=== PATIENT | male | born 1940 | race Caucasian/White ===

== ENCOUNTER → 2018-01-15 | Outpatient (CLI) | payer MEDICARE, SELFPAY ==
[2018-01-15 11:39] LABS: Hematocrit 46.2 % (41-53); Hemoglobin 15.6 g/dL (13.5-17.5); Mean Corpuscular HGB Conc 33.8 % (30-36); Mean Corpuscular Hemoglobin 33.5 PG (26-34); Platelet Count 186 X10^3/uL (150-400); Red Blood Cell Count 4.67 X10^6/uL (4.5-5.9); White Blood Cell Count 5.3 X10^3/uL (4.5-11.0)
[2018-01-15 11:49] LABS: Alanine Aminotransferase 64 IU/L (21-72); Albumin 4.6 g/dL (3.5-5.0); Albumin Globulin Ratio 1.5 (1.0-2.8); Alkaline Phosphatase 41 U/L (38-126); Aspartate Aminotransferase 53 IU/L (17-59); BUN Creatinine Ratio 16.4 (6-22); Bilirubin Total 0.7 mg/dL (0.2-1.3); Calcium 9.9 mg/dL (8.4-10.2); Cholesterol 187 mg/dL (140-199); Estimated Glomerular Filt Rate > 60.0 mL/min (>60); Globulin 3.1 g/dL (1.7-4.1); Glucose 89 mg/dL (80-110); HDL Cholesterol 40 mg/dL (40-60); HEMOLYSIS 18 (0-50); LDL Cholesterol Calculated 130 mg/dL (<100); Potassium 4.2 mmol/L (3.4-5.1); Sodium 143 mmol/L (137-145); Total Protein 7.7 g/dL (6.3-8.2); Triglycerides 84 mg/dL (35-150)
[2018-01-15 12:18] LABS: Prostate Specific Antigen < 0.064 ng/mL (0.10-4.00)
== END ==
LOC: LAB 09:42
PROVIDERS: PCP Family Medicine; Visit Provider Family Medicine
DX: I10 Essential (primary) hypertension (principal); E78.5 Hyperlipidemia, unspecified; C61 Malignant neoplasm of prostate; R94.5 Abnormal results of liver function studies
CPT/HCPCS: 36415; 80053; 80061; 84153; 85027

== ENCOUNTER → 2020-05-19 10:20 | Outpatient (CLI) | payer MEDICARE, SELFPAY ==
[2020-05-19 11:57] LABS: BUN Creatinine Ratio 18.1 (6-22); Blood Urea Nitrogen 17 mg/dL (9-20); Calcium 9.5 mg/dL (8.4-10.2); Carbon Dioxide 31 mmol/L (22-32); Chloride 99 mmol/L (98-107); Estimated Glomerular Filt Rate > 60.0 mL/min (>60); Glucose 82 mg/dL (80-110); HEMOLYSIS < 15 (0-50); Potassium 4.4 mmol/L (3.4-5.1); Sodium 138 mmol/L (137-145)
[2020-05-19 12:29] LABS: Prostate Specific Antigen < 0.064 ng/mL (0.10-4.00)
== END ==
PROVIDERS: PCP Student in an Organized Health Care Education/Training Program; Referring Provider Student in an Organized Health Care Education/Training Program; Visit Provider Student in an Organized Health Care Education/Training Program
DX: I10 Essential (primary) hypertension (principal); Z90.79 Acquired absence of other genital organ(s)
CPT/HCPCS: 36415; 80048; 84153

== ENCOUNTER → 2020-11-24 15:20 | Outpatient (CLI) | payer MEDICARE, SELFPAY ==
[2020-11-24] MEDS: COVID-19 VACC, Ad26(JANSSEN)/PF 0.5 ML IM (15:29)
== END ==
PROVIDERS: PCP Student in an Organized Health Care Education/Training Program; Visit Provider Internal Medicine
DX: Z23 Encounter for immunization (principal)
CPT/HCPCS: 0031A; 91303

== ENCOUNTER → 2021-06-22 08:18 | Outpatient (CLI) | payer MEDICARE, SELFPAY ==
--- NOTE | 2021-06-22 08:20 | DI.RAD.S_ITS ---
PROCEDURE: XR LUMBAR SPINE 2-3V INDICATIONS: Low back pain TECHNIQUE: 3 views of the lumbar spine were acquired. COMPARISON: [facility], , L-SPINE 2-3 VIEWS, 05/13/2012, 12:48. FINDINGS: Bones: 5 [id number] vertebrae are present. Partial sacralization of L5. Straightening of the lumbar lordosis. No acute, displaced fracture. The vertebral body heights are maintained. Mild disc height loss at L2-4. Is moderate disc height loss at L4-5.. Moderate to advanced facet arthrosis at L4-S1. No suspicious bony lesions. Soft tissues: Overlying bowel gas pattern is normal. No suspicious soft tissue calcifications. IMPRESSION: No acute acute osseous abnormality. Dictated by: Maximino Zhong M.D. on 06/22/2021 at 9:26 Approved by: Maximino Zhong M.D. on 06/22/2021 at 9:31
[2021-06-22 09:37] LABS: BUN Creatinine Ratio 18.3 (6-22); Blood Urea Nitrogen 19 mg/dL (9-20); Calcium 9.5 mg/dL (8.4-10.2); Carbon Dioxide 31 mmol/L (22-32); Chloride 94 mmol/L (98-107); Estimated Glomerular Filt Rate > 60.0 mL/min (>60); Glucose 96 mg/dL (80-110); HEMOLYSIS < 15 (0-50); Potassium 3.8 mmol/L (3.4-5.1); Sodium 133 mmol/L (137-145)
[2021-06-22 10:11] LABS: Prostate Specific Antigen < 0.064 ng/mL (0.10-4.00)
== END ==
PROVIDERS: PCP Student in an Organized Health Care Education/Training Program; Referring Provider Student in an Organized Health Care Education/Training Program; Visit Provider Student in an Organized Health Care Education/Training Program
DX: Z85.46 Personal history of malignant neoplasm of prostate (principal); M54.50 Low back pain, unspecified; I10 Essential (primary) hypertension
CPT/HCPCS: 36415; 72100; 80048; 84153

== ENCOUNTER → 2021-08-03 15:14 | Outpatient (CLI) | payer MEDICARE, SELFPAY ==
[2021-08-03] MEDS: COVID-19 VACC #3, MRNA(MOD) 50 MCG/0.25 ML VIAL IM (15:23)
== END ==
PROVIDERS: PCP Student in an Organized Health Care Education/Training Program; Visit Provider Internal Medicine
DX: Z23 Encounter for immunization (principal)
CPT/HCPCS: 0013A; 91301

== ENCOUNTER → 2022-01-24 13:07 | Outpatient (CLI) | payer MEDICARE, SELFPAY ==
--- NOTE | 2022-01-24 13:15 | DI.RAD.S_ITS ---
PROCEDURE: XR ANKLE RT MIN 3V INDICATIONS: fall TECHNIQUE: 3 views of the ankle were acquired. COMPARISON: None. FINDINGS: Bones: Acute oblique fracture through distal fibular shaft is seen with minimal lateral and dorsal displacement at fracture site. No other fracture or dislocation. Ankle mortise is normally aligned. No suspicious bony lesions. Soft tissues: Lateral ankle soft tissue swelling is seen. No tibiotalar joint effusion. Achilles tendon appears normal. IMPRESSION: Acute minimally displaced distal fibular shaft fracture with overlying soft tissue swelling. Ankle mortise is intact. Dictated by: Arthur Manriquez M.D. on 01/24/2022 at 13:40 Approved by: Arthur Manriquez M.D. on 01/24/2022 at 13:47
== END ==
PROVIDERS: PCP Student in an Organized Health Care Education/Training Program; Referring Provider Physician Assistant; Visit Provider Physician Assistant
DX: M25.571 Pain in right ankle and joints of right foot (principal); S82.831A Other fracture of upper and lower end of right fibula, initial encounter for closed fracture; M25.471 Effusion, right ankle; W19.XXXA Unspecified fall, initial encounter
CPT/HCPCS: 73610

== ENCOUNTER → 2022-01-24 15:40 | Outpatient (CLI) | payer MEDICARE, SELFPAY ==
--- NOTE | 2022-01-24 15:42 | DI.CT.S_ITS ---
PROCEDURE: CT HEAD/BRAIN WO CON INDICATIONS: fall 2wks ago, LOC TECHNIQUE: Noncontrast 4.5 mm thick angled axial sections acquired from the foramen magnum to the vertex, with coronal and sagittal reformats. For radiation dose reduction, the following was used: automated exposure control, adjustment of mA and/or kV according to patient size. COMPARISON: None. FINDINGS: Image quality: Excellent. CSF spaces: Basal cisterns are patent. No extra-axial fluid collections. The ventricles are symmetric in size and shape. Brain: 4 mm focus of hyperdensity in the anterior right frontal lobe. There is no surrounding mass effect or midline shift. There is cerebral volume loss for age, with resultant ventricular and sulcal prominence. There are periventricular and deep white matter chronic small vessel ischemic changes. There is intracranial internal carotid artery atherosclerosis. Skull and face: Calvarium and visualized facial bones appear intact, without suspicious lesions. Sinuses: Visualized sinuses and mastoids are clear. IMPRESSION: Right frontal hyperdensity most suggestive small focus of parenchymal hemorrhage. No midline shift or mass effect. Moderate atrophy and chronic microvascular ischemic change. Dictated by: Britney Boston M.D. on 01/24/2022 at 16:45 Approved by: Britney Boston M.D. on 01/24/2022 at 16:51
== END ==
PROVIDERS: PCP Student in an Organized Health Care Education/Training Program; Referring Provider Physician Assistant; Visit Provider Physician Assistant
DX: S06.9X9A Unspecified intracranial injury with loss of consciousness of unspecified duration, initial encounter (principal); S82.831A Other fracture of upper and lower end of right fibula, initial encounter for closed fracture; M25.571 Pain in right ankle and joints of right foot; M25.471 Effusion, right ankle; W19.XXXA Unspecified fall, initial encounter
CPT/HCPCS: 70450; 73610

== ENCOUNTER 2022-03-01 13:16 | Inpatient (IN) | payer MEDICARE, SELFPAY ==
[2022-03-01] VITALS (10 sets, daily range): BP systolic 110–158; BP diastolic 54–80; PULSE 60–86; RESP 11–18; TEMP 36.6–37.6; O2SAT 94–98; BMI 26.5
--- NOTE | 2022-03-01 14:16 | DI.CT.S_ITS ---
PROCEDURE: CT HEAD/BRAIN WO CON INDICATIONS: GLF hit head/hx of bleed TECHNIQUE: Noncontrast 4.5 mm thick angled axial sections acquired from the foramen magnum to the vertex, with coronal and sagittal reformats. For radiation dose reduction, the following was used: automated exposure control, adjustment of mA and/or kV according to patient size. COMPARISON: [facility], CT, CT HEAD/BRAIN WO CON, 01/24/2022, 16:26. FINDINGS: Image quality: Excellent. CSF spaces: Basal cisterns are patent. No extra-axial fluid collections. The ventricles are symmetric in size and shape. Brain: The small 5 mm hyperdensity seen in the anterior right frontal deep white matter/painting-white junction region on the previous study is unchanged. Consider benign calcification versus very small unchanged hemorrhagic metastatic focus without surrounding vasogenic edema. Of note, this is the only lesion seen. There is cerebral volume loss for age, with resultant ventricular and sulcal prominence. There are periventricular and deep white matter chronic small vessel ischemic changes. There is intracranial internal carotid artery atherosclerosis. Skull and face: Calvarium and visualized facial bones appear intact, without suspicious lesions. Sinuses: Visualized sinuses and mastoids are clear. IMPRESSION: 1. Unchanged 5 mm hyperdensity at the anterior right frontal deep white matter/painting-white junction region. No additional lesions. Differential diagnosis includes benign calcification versus is a very small hemorrhagic metastatic focus. 2. No evidence of acute stroke or interval hemorrhage. Comment: Consider either MRI of the brain with without contrast or follow-up CT in 3-4 months. Dictated by: Paulie Rob M.D. on 03/01/2022 at 14:43 Approved by: Paulie Rob M.D. on 03/01/2022 at 15:00
[2022-03-01 14:29] LABS: Add Manual Diff / Slide Review NO; Basophils Absolute Auto 0 /uL (0-100); Basophils Percent Auto 0.9 % (0-2); Eosinophils Absolute Auto 100 /uL (0-450); Eosinophils Percent Auto 2.9 % (2-4); Hematocrit 41.1 % (41-53); Hemoglobin 14.1 g/dL (13.5-17.5); Lymphocytes Absolute Auto 1500 /uL (1100-4500); Lymphocytes Percent Auto 34.7 % (25-40); Mean Corpuscular HGB Conc 34.4 % (30-36); Mean Corpuscular Hemoglobin 35.9 PG (26-34); Mean Corpuscular Volume 104.2 fL (80-100); Monocytes Absolute Auto 500 /uL (0-900); Monocytes Percent Auto 12.5 % (3-14); Neutrophils Absolute Auto 2100 /uL (1500-7000); Platelet Count 78 X10^3/uL (150-400); Red Blood Cell Count 3.94 X10^6/uL (4.5-5.9); Red Cell Distribution Width 13.2 % (11.6-14.8); White Blood Cell Count 4.3 X10^3/uL (4.5-11.0)
--- NOTE | 2022-03-01 16:43 | ED.FALL ---
HPI - Fall <MELVINA Briggs - Last Filed: 03/01/22 20:14> General Chief Complaint: Fall Stated Complaint: GLF Time Seen by Provider: 03/01/22 16:17 Source: patient, family and EMS Mode of arrival: EMS History of Present Illness HPI Narrative: This is an 81-year-old male who presents to the emergency department complaining of a mechanical fall this morning with head injury. He denies any altered mental status, endorses feeling poorly over the last week with increased sleeping, poor appetite and generalized nausea. 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 Patient endorses increased falls over the last few weeks, states he has heartburn and GERD and has had generalize nausea for approximately one week. He denies any dysuria, urinary retention, dribbling, pain anywhere in his body, denies loss of consciousness, denies tripping on something, denies any new lower extremity weakness or other weakness of any kind. Patient endorses having a left hip problem that locks up occasionally, chronic low back pain, history of hyperlipidemia, essential tremor, and hypertension. He denies any vision changes, neck pain, emesis, memory issues, abnormal speech, or difficulty with ambulation. Related Data Home Medications Medication Instructions Recorded Confirmed MULTIVITAMIN (#MULTIPLE VITAMINS) 1 cap PO Q DAY ##0 03/31/12 03/01/22 clobetasol 0.05 % scalp solution 1 ml topical BID 03/01/22 03/01/22 Previous Rx's Medication Instructions Recorded propranolol 20 mg tablet 20 mg PO BID #180 tabs 11/06/21 omeprazole 20 mg capsule,delayed 20 mg PO DAILY #90 caps 02/09/22 release Allergies Allergy/AdvReac Type Severity Reaction Status Date / Time No Known Allergies Allergy Verified 03/01/22 22:35 Review of Systems <MELVINA Briggs - Last Filed: 03/01/22 20:14> Review of Systems Narrative: General: denies fever, chills, malaise, sweats, endorses increased fatigue Head/Neck: denies headache, neck pain, dizziness Eyes: denies visual changes, eye pain Cardio: denies chest pain, palpitations, edema Respiratory: denies dyspnea, cough, orthopnea GI: denies abdominal pain, nausea, vomiting, or diarrhea, states has not had much of an appetite : denies dysuria, hematuria, urinary retention, frequency or incontinence MSK: denies joint pain, muscle weakness Skin: denies rash, itching, skin lesions or other Neuro: denies numbness, tingling Patient History <MELVINA Briggs - Last Filed: 03/01/22 20:14> Medical History Combined hyperlipidemia Concussion Essential tremor Falls frequently GERD (gastroesophageal reflux disease) Intraparenchymal hemorrhage of brain Surgical History S/P total hip arthroplasty Status post colonoscopy Status post radical cystoprostatectomy Family History Father Prostate cancer Kidney problem Mother Old age Social History household members: spouse Smoking Status: Former smoker Tobacco: How many years used: 50 second hand exposure: No alcohol intake: current substance use type: does not use Smoking Status: Former smoker alcohol intake frequency: a few times a week Substance Use Type: does not use Exam <MELVINA Briggs - Last Filed: 03/01/22 20:14> Narrative Exam Narrative: Independently reviewed vitals signs and nursing notes. General: Awake, alert, nontoxic, no cardiorespiratory distress Head/Neck: Atraumatic, neck supple Eyes: EOMI, conjunctiva normal Nose: nares patent, no rhinorrhea Mouth/Throat: moist mucus membranes, posterior pharynx without erythema or lesion Cardio: Regular rate and rhythm, no peripheral edema Respiratory: respirations unlabored without wheezing, stridor, or rales. No retractions, hypoxia or tachypnea GI: Abdomen soft, nontender to palpation x4 quadrants, no guarding or rebound tenderness MSK: Moves all extremities, neurovascularly intact, range of motion without deficit Skin: Normal capillary refill, no rash Neuro: Normal speech and cognition, normal gait, alert and oriented x3, uses a walker to ambulate, a cane, or walking sticks. Initial Vital Signs Initial Vital Signs: Vital Signs Pulse Rate 62 03/01/22 13:25 Respiratory Rate 12 03/01/22 13:25 Blood Pressure 158/73 H 03/01/22 13:25 Pulse Oximetry 97 03/01/22 13:25 Oxygen Delivery Method 03/01/22 13:25 <Charmaine Reaves DO - Last Filed: 03/03/22 12:27> Initial Vital Signs Initial Vital Signs: Vital Signs Pulse Rate 62 03/01/22 13:25 Respiratory Rate 12 03/01/22 13:25 Blood Pressure 158/73 H 03/01/22 13:25 Pulse Oximetry 97 03/01/22 13:25 Oxygen Delivery Method 03/01/22 13:25 Course <MELVINA Briggs - Last Filed: 03/01/22 20:14> Orders Ordered: Aspirin (Aspirin Ec 81 Mg Tablet) 81 mg PO DAILY [facility] Last Admin: 03/03/22 08:45 Dose: 81 mg Documented By: Admin: 03/02/22 09:48 Dose: Not Given Documented By: NH Hydromorphone HCl (Hydromorphone 1 Mg Inj) 1 mg IV Q3H PRN PRN Reason: Pain, Severe (7-10) Dextrose/Sodium Chloride (Dextrose 5%-0.9% Ns) 1,000 mls @ 100 mls/hr IV CONT [facility] Last Admin: 03/03/22 10:05 Dose: 100 mls/hr Documented By: Infusion: 03/03/22 09:53 Dose: 100 mls/hr Documented By: Admin: 03/02/22 23:53 Dose: 100 mls/hr Documented By: Infusion: 03/02/22 21:37 Dose: 100 mls/hr Documented By: Admin: 03/02/22 11:37 Dose: 100 mls/hr Documented By: Infusion: 03/02/22 09:58 Dose: 100 mls/hr Documented By: Admin: 03/01/22 23:34 Dose: 100 mls/hr Documented By: MP Naloxone HCl (Naloxone 0.4 Mg/Ml Vial) 0.2 mg IV Q2MIN PRN PRN Reason: Opiate Reversal Oxycodone HCl (Oxycodone Ir 5 Mg Tablet) 5 mg PO Q4HR PRN PRN Reason: Pain, Moderate (4-6) Propranolol HCl (Propranolol 10 Mg Tablet) 20 mg PO BID [facility] Last Admin: 03/03/22 08:44 Dose: 20 mg Documented By: Admin: 03/02/22 20:34 Dose: Not Given Documented By: Admin: 03/02/22 09:48 Dose: 20 mg Documented By: REBECCA Discontinued Medications Acetaminophen (Acetaminophen 325 Mg Tablet) 650 mg PO NOW ONE Stop: 03/01/22 17:21 Last Admin: 03/01/22 18:09 Dose: 650 mg Documented By: DESIREE Enoxaparin Sodium (Enoxaparin 40 Mg/0.4 Ml Syringe) 40 mg SUBCUT DAILY [facility] Last Admin: 03/02/22 09:45 Dose: Not Given Documented By: REBECCA Ondansetron HCl (Ondansetron 4 Mg Odt) 4 mg SL NOW ONE Stop: 03/01/22 17:21 Last Admin: 03/01/22 18:09 Dose: 4 mg Documented By: DESIREE Potassium Chloride (Potassium Chloride 20 Meq/15 Ml Udc) 40 meq PO NOW ONE Stop: 03/03/22 11:32 Vital Signs Vital signs: Vital Signs - 8 hr 03/01/22 13:28 03/01/22 13:25 03/01/22 14:30 Temperature 97.8 F Pulse Rate 63 62 70 Respiratory Rate 18 12 11 L Blood Pressure 157/73 H 158/73 H 130/60 Pulse Oximetry 98 97 96 Oxygen Delivery Method Room Air Room Air Room Air 03/01/22 19:10 03/01/22 16:00 03/01/22 16:30 Temperature Pulse Rate 69 71 80 Respiratory Rate 15 18 16 Blood Pressure 110/54 L 116/58 L 129/66 Pulse Oximetry 94 97 96 Oxygen Delivery Method Room Air Room Air Room Air 03/01/22 17:00 03/01/22 17:30 Temperature Pulse Rate 68 60 Respiratory Rate 15 18 Blood Pressure 128/61 138/59 L Pulse Oximetry 95 96 Oxygen Delivery Method Room Air Room Air <Charmaine Reaves DO - Last Filed: 03/03/22 12:27> Orders Ordered: Aspirin (Aspirin Ec 81 Mg Tablet) 81 mg PO DAILY [facility] Last Admin: 03/03/22 08:45 Dose: 81 mg Documented By: Admin: 03/02/22 09:48 Dose: Not Given Documented By: REBECCA Hydromorphone HCl (Hydromorphone 1 Mg Inj) 1 mg IV Q3H PRN PRN Reason: Pain, Severe (7-10) Dextrose/Sodium Chloride (Dextrose 5%-0.9% Ns) 1,000 mls @ 100 mls/hr IV CONT [facility] Last Admin: 03/03/22 10:05 Dose: 100 mls/hr Documented By: Infusion: 03/03/22 09:53 Dose: 100 mls/hr Documented By: Admin: 03/02/22 23:53 Dose: 100 mls/hr Documented By: Infusion: 03/02/22 21:37 Dose: 100 mls/hr Documented By: Admin: 03/02/22 11:37 Dose: 100 mls/hr Documented By: Infusion: 03/02/22 09:58 Dose: 100 mls/hr Documented By: Admin: 03/01/22 23:34 Dose: 100 mls/hr Documented By: ASHOK Naloxone HCl (Naloxone 0.4 Mg/Ml Vial) 0.2 mg IV Q2MIN PRN PRN Reason: Opiate Reversal Oxycodone HCl (Oxycodone Ir 5 Mg Tablet) 5 mg PO Q4HR PRN PRN Reason: Pain, Moderate (4-6) Propranolol HCl (Propranolol 10 Mg Tablet) 20 mg PO BID [facility] Last Admin: 03/03/22 08:44 Dose: 20 mg Documented By: Admin: 03/02/22 20:34 Dose: Not Given Documented By: Admin: 03/02/22 09:48 Dose: 20 mg Documented By: REBECCA Discontinued Medications Acetaminophen (Acetaminophen 325 Mg Tablet) 650 mg PO NOW ONE Stop: 03/01/22 17:21 Last Admin: 03/01/22 18:09 Dose: 650 mg Documented By: DESIREE Enoxaparin Sodium (Enoxaparin 40 Mg/0.4 Ml Syringe) 40 mg SUBCUT DAILY [facility] Last Admin: 03/02/22 09:45 Dose: Not Given Documented By: REBECCA Ondansetron HCl (Ondansetron 4 Mg Odt) 4 mg SL NOW ONE Stop: 03/01/22 17:21 Last Admin: 03/01/22 18:09 Dose: 4 mg Documented By: DESIREE Potassium Chloride (Potassium Chloride 20 Meq/15 Ml Udc) 40 meq PO NOW ONE Stop: 03/03/22 11:32 Vital Signs Vital signs: Vital Signs - 8 hr 03/01/22 13:28 03/01/22 13:25 03/01/22 14:30 Temperature 97.8 F Pulse Rate 63 62 70 Respiratory Rate 18 12 11 L Blood Pressure 157/73 H 158/73 H 130/60 Pulse Oximetry 98 97 96 Oxygen Delivery Method Room Air Room Air Room Air 03/01/22 19:10 03/01/22 16:00 03/01/22 16:30 Temperature Pulse Rate 69 71 80 Respiratory Rate 15 18 16 Blood Pressure 110/54 L 116/58 L 129/66 Pulse Oximetry 94 97 96 Oxygen Delivery Method Room Air Room Air Room Air 03/01/22 17:00 03/01/22 17:30 Temperature Pulse Rate 68 60 Respiratory Rate 15 18 Blood Pressure 128/61 138/59 L Pulse Oximetry 95 96 Oxygen Delivery Method Room Air Room Air MDM - Fall <MELVINA Briggs - Last Filed: 03/01/22 20:14> Lab Data Result diagrams: 03/03/22 08:15 03/03/22 08:15 Labs: Lab Results 03/01/22 03/01/22 03/01/22 Range/Units 06:42 06:42 13:18 WBC 4.3 L (4.5-11.0) X10^3/uL RBC 3.94 L (4.5-5.9) X10^6/uL Hgb 14.1 (13.5-17.5) g/dL Hct 41.1 (41-53) % MCV 104.2 H (80-100) fL MCH 35.9 H (26-34) PG MCHC 34.4 (30-36) % RDW 13.2 (11.6-14.8) % Plt Count 78 L (150-400) X10^3/uL Neut % (Auto) 49.0 L (50-75) % Lymph % (Auto) 34.7 (25-40) % [place] % (Auto) 12.5 (3-14) % Eos % (Auto) 2.9 (2-4) % Baso % (Auto) 0.9 (0-2) % Neut # (Auto) 2100 (9209-6601) /uL Lymph # (Auto) 1500 (0484-8822) /uL [place] # (Auto) 500 (0-900) /uL Eos # (Auto) 100 (0-450) /uL Baso # (Auto) 0 (0-100) /uL Sodium (137-145) mmol/L Potassium (3.4-5.1) mmol/L Chloride (98-107) mmol/L Carbon Dioxide (22-32) mmol/L BUN (9-20) mg/dL Creatinine (0.66-1.25) mg/dL Estimated GFR (>60) mL/min BUN/Creatinine Ratio (6-22) Glucose (80-110) mg/dL Calcium (8.4-10.2) mg/dL Total Bilirubin (0.2-1.3) mg/dL AST (17-59) IU/L ALT (<50) IU/L Alkaline Phosphatase (38-126) U/L Total Protein (6.3-8.2) g/dL Albumin (3.5-5.0) g/dL Globulin (1.7-4.1) g/dL Albumin/Globulin Ratio (1.0-2.8) Lipase (23-300) U/L Vitamin B12 Cancelled Folate Cancelled Urine RBC (0-5/HPF) Urine WBC (0-5/HPF) Ur Squamous Epith Cells (0-5/HPF) Urine Bacteria (None) Ur Culture Indicated? Chlamy pneumoniae PCR (Not Detect) Adenovirus (PCR) (Not Detect) B. pertussis DNA (PCR) (Not Detecte) B.parapertussis DNA PCR (Not Detecte) Coronavirus OC43 (PCR) (Not Detect) Coronavirus HKU1 (PCR) (Not Detect) Coronavirus 229E (PCR) (Not Detect) SARS-CoV-2 (PCR) (Not Detecte) Coronavirus NL63 (PCR) (Not Detect) Human Metapneumovir PCR (Not Detect) Influenza Type A (PCR) (Not Detect) Influenza Type B (PCR) (Not Detect) M. pneumoniae (PCR) (Not Detect) Parainfluenza 1 (PCR) (Not Detect) Parainfluenza 2 (PCR) (Not Detect) Parainfluenza 3 (PCR) (Not Detect) Parainfluenza 4 (PCR) (Not Detect) RSV (PCR) (Not Detect) Entero/Rhino (PCR) (Not Detect) 03/01/22 03/01/22 03/01/22 Range/Units 13:18 13:18 16:33 WBC (4.5-11.0) X10^3/uL RBC (4.5-5.9) X10^6/uL Hgb (13.5-17.5) g/dL Hct (41-53) % MCV (80-100) fL MCH (26-34) PG MCHC (30-36) % RDW (11.6-14.8) % Plt Count (150-400) X10^3/uL Neut % (Auto) (50-75) % Lymph % (Auto) (25-40) % [place] % (Auto) (3-14) % Eos % (Auto) (2-4) % Baso % (Auto) (0-2) % Neut # (Auto) (0719-4063) /uL Lymph # (Auto) (2646-4061) /uL [place] # (Auto) (0-900) /uL Eos # (Auto) (0-450) /uL Baso # (Auto) (0-100) /uL Sodium 133 L (137-145) mmol/L Potassium 4.1 (3.4-5.1) mmol/L Chloride 89 L (98-107) mmol/L Carbon Dioxide 20 L (22-32) mmol/L BUN 13 (9-20) mg/dL Creatinine 1.19 (0.66-1.25) mg/dL Estimated GFR > 60 (>60) mL/min BUN/Creatinine Ratio 10.9 (6-22) Glucose 75 L (80-110) mg/dL Calcium 9.1 (8.4-10.2) mg/dL Total Bilirubin 1.2 (0.2-1.3) mg/dL AST 155 H (17-59) IU/L ALT 101 H (<50) IU/L Alkaline Phosphatase 64 (38-126) U/L Total Protein 7.5 (6.3-8.2) g/dL Albumin 4.7 (3.5-5.0) g/dL Globulin 2.8 (1.7-4.1) g/dL Albumin/Globulin Ratio 1.7 (1.0-2.8) Lipase 1335 H (23-300) U/L Vitamin B12 Folate Urine RBC None seen (0-5/HPF) Urine WBC None seen (0-5/HPF) Ur Squamous Epith Cells None seen (0-5/HPF) Urine Bacteria None seen (None) Ur Culture Indicated? Cult not indicated Chlamy pneumoniae PCR (Not Detect) Adenovirus (PCR) (Not Detect) B. pertussis DNA (PCR) (Not Detecte) B.parapertussis DNA PCR (Not Detecte) Coronavirus OC43 (PCR) (Not Detect) Coronavirus HKU1 (PCR) (Not Detect) Coronavirus 229E (PCR) (Not Detect) SARS-CoV-2 (PCR) (Not Detecte) Coronavirus NL63 (PCR) (Not Detect) Human Metapneumovir PCR (Not Detect) Influenza Type A (PCR) (Not Detect) Influenza Type B (PCR) (Not Detect) M. pneumoniae (PCR) (Not Detect) Parainfluenza 1 (PCR) (Not Detect) Parainfluenza 2 (PCR) (Not Detect) Parainfluenza 3 (PCR) (Not Detect) Parainfluenza 4 (PCR) (Not Detect) RSV (PCR) (Not Detect) Entero/Rhino (PCR) (Not Detect) 03/01/22 Range/Units 18:40 WBC (4.5-11.0) X10^3/uL RBC (4.5-5.9) X10^6/uL Hgb (13.5-17.5) g/dL Hct (41-53) % MCV (80-100) fL MCH (26-34) PG MCHC (30-36) % RDW (11.6-14.8) % Plt Count (150-400) X10^3/uL Neut % (Auto) (50-75) % Lymph % (Auto) (25-40) % [place] % (Auto) (3-14) % Eos % (Auto) (2-4) % Baso % (Auto) (0-2) % Neut # (Auto) (3250-4441) /uL Lymph # (Auto) (0317-8765) /uL [place] # (Auto) (0-900) /uL Eos # (Auto) (0-450) /uL Baso # (Auto) (0-100) /uL Sodium (137-145) mmol/L Potassium (3.4-5.1) mmol/L Chloride (98-107) mmol/L Carbon Dioxide (22-32) mmol/L BUN (9-20) mg/dL Creatinine (0.66-1.25) mg/dL Estimated GFR (>60) mL/min BUN/Creatinine Ratio (6-22) Glucose (80-110) mg/dL Calcium (8.4-10.2) mg/dL Total Bilirubin (0.2-1.3) mg/dL AST (17-59) IU/L ALT (<50) IU/L Alkaline Phosphatase (38-126) U/L Total Protein (6.3-8.2) g/dL Albumin (3.5-5.0) g/dL Globulin (1.7-4.1) g/dL Albumin/Globulin Ratio (1.0-2.8) Lipase (23-300) U/L Vitamin B12 Folate Urine RBC (0-5/HPF) Urine WBC (0-5/HPF) Ur Squamous Epith Cells (0-5/HPF) Urine Bacteria (None) Ur Culture Indicated? Chlamy pneumoniae PCR Not detected (Not Detect) Adenovirus (PCR) Not detected (Not Detect) B. pertussis DNA (PCR) Not detected (Not Detecte) B.parapertussis DNA PCR Not detected (Not Detecte) Coronavirus OC43 (PCR) Not detected (Not Detect) Coronavirus HKU1 (PCR) Not detected (Not Detect) Coronavirus 229E (PCR) Not detected (Not Detect) SARS-CoV-2 (PCR) Not detected (Not Detecte) Coronavirus NL63 (PCR) Not detected (Not Detect) Human Metapneumovir PCR Not detected (Not Detect) Influenza Type A (PCR) Not detected (Not Detect) Influenza Type B (PCR) Not detected (Not Detect) M. pneumoniae (PCR) Not detected (Not Detect) Parainfluenza 1 (PCR) Not detected (Not Detect) Parainfluenza 2 (PCR) Not detected (Not Detect) Parainfluenza 3 (PCR) Not detected (Not Detect) Parainfluenza 4 (PCR) Not detected (Not Detect) RSV (PCR) Not detected (Not Detect) Entero/Rhino (PCR) Not detected (Not Detect) Urine Dip Bedside Urine Glucose Negative Bedside Urine Bilirubin - Negative Bedside Urine Ketone + 15 Urine Specific [place] 1.015 Bedside Urine Occult Blood - Negative Bedside Urine pH 6 Bedside Urine Protein - Negative Bedside Urine Urobilinogen - Negative Bedside Urine Nitrite - Negative Bedside Urine Leukocytes - Negative Esterase Imaging Data CT scan - head: Radiologist's Impression: PROCEDURE:? CT HEAD/BRAIN WO CON ? INDICATIONS:? GLF hit head/hx of bleed ? TECHNIQUE:? Noncontrast 4.5 mm thick angled axial sections acquired from the foramen magnum to the vertex, with coronal and sagittal reformats.? For radiation dose reduction, the following was used:? automated exposure control, adjustment of mA and/or kV according to patient size.? ? COMPARISON:? [facility], CT, CT HEAD/BRAIN WO CON, 01/24/2022, 16:26. ? FINDINGS:? Image quality:? Excellent.? ? CSF spaces:? Basal cisterns are patent.? No extra-axial fluid collections.? The ventricles are symmetric in size and shape.? ? Brain:? The small 5 mm hyperdensity seen in the anterior right frontal deep white matter/painting-white junction region on the previous study is unchanged.? Consider benign calcification versus very small unchanged hemorrhagic metastatic focus without surrounding vasogenic edema.? Of note, this is the only lesion seen.? There is cerebral volume loss for age, with resultant ventricular and sulcal prominence.? There are periventricular and deep white matter chronic small vessel ischemic changes.? There is intracranial internal carotid artery atherosclerosis.? ? Skull and face:? Calvarium and visualized facial bones appear intact, without suspicious lesions.? ? Sinuses:? Visualized sinuses and mastoids are clear.? ? IMPRESSION:? ? 1. Unchanged 5 mm hyperdensity at the anterior right frontal deep white matter/painting-white junction region.? No additional lesions.? Differential diagnosis includes benign calcification versus is a very small hemorrhagic metastatic focus. ? 2. No evidence of acute stroke or interval hemorrhage.? ? Comment:? Consider either MRI of the brain with without contrast or follow-up CT in 3-4 months.? ? ? Dictated by: Paulie Rob M.D. on 03/01/2022 at 14:43 ? ? Approved by: Paulie Rob M.D. on 03/01/2022 at 15:00 ? CT scan - abdomen/pelvis: Radiologist's Impression: PROCEDURE:? CT ABDOMEN PELVIS W CON ? INDICATIONS:? fall, nausea, fatigue, weakness, hepatomegaly on US, fartun? ? TECHNIQUE:? After the administration of intravenous contrast, axial sections acquired from the lung bases to the pubic symphysis.? Coronal and sagittal reformats were performed.? For radiation dose reduction, the following was used:? automated exposure control, adjustment of mA and/or kV according to patient size.? ? COMPARISON:? [facility], CT, ABDOMEN/PELVIS WITH CONTRAST, 07/31/2009, 7:41.? [facility], US, US ABDOMEN LIMITED, 03/01/2022, 17:05. ? FINDINGS:? Image quality:? Excellent.? ? Lung bases:? Unremarkable. Heart:? No significant findings. ? ABDOMEN: Liver:? Diffuse fatty infiltration of liver.? Gallbladder:? Gallbladder wall is prominent which could be due to hepatocellular disease or early manifestation of acute cholecystitis. Biliary ducts:? Unremarkable.? ? Pancreas:? Mild inflammatory changes noted adjacent to the uncinate process and head of the pancreas.? 1.5 centimeter in maximum diameter cystic lesion noted in the head of the pancreas or could represent a choledochal cyst. Spleen:? Unremarkable.? ? Adrenal Glands:? Unremarkable.? ? Kidneys and Ureters:? Unremarkable.? ? ? Stomach and Bowel:? Mild phlegm a anjana changes noted in the duodenum adjacent to the pancreatic head.? Stomach and colon are unremarkable.? Numerous diverticuli noted in the sigmoid colon without evidence of diverticulitis.? The appendix is normal. Peritoneum:? Small amount of free fluid noted adjacent to the pancreatic head and the proximal duodenum which tracks into the right pericolic gutter.? No free air.? ? Ventral Wall: ? No hernias.? Abdominal Nodes:? No retroperitoneal or mesenteric adenopathy by size criteria.? Vessels:? Aorta and inferior vena cava are normal in size. Scattered atherosclerotic calcifications involving the abdominal and pelvic vasculature.? ? PELVIS: Pelvic Organs:? Unremarkable.? ? Bladder:? Unremarkable.? ? Pelvic Nodes: No enlarged lymph nodes.? Miscellaneous: No hernias are seen. ? ? ? Bones:? Spine degenerative disc disease and facet arthropathy.? Right hip arthroplasty. ? ? IMPRESSION:? ? 1. Inflammation involving the pancreatic head/uncinate process and the duodenum compatible with pancreatitis and duodenitis. ? 2. Cystic lesion involving the head of the pancreas which may represent pancreatic cystic neoplasm, choledochal cyst or necrotic ampullary neoplasm.? Recommend endoscopy for additional evaluation. ? 3. Severe hepatic steatosis.? ? 4. Gallbladder wall prominence which could be related to a patter several disease or early manifestation of acute cholecystitis. ? 5. Colonic diverticulosis without evidence of diverticulitis.? ? ? Dictated by: Tara Han MD, PhD on 03/01/2022 at 17:56 ? ? Approved by: Tara Han MD, PhD on 03/01/2022 at 18:05 ? US - abdomen: Radiologist's Impression: PROCEDURE: US ABDOMEN LIMITED ? INDICATIONS:? cholelithiasis ? TECHNIQUE:? Real-time focused scanning was performed of the abdomen, with image documentation.? ? COMPARISON:? None. ? FINDINGS:? Liver is normal in size.? Liver is diffusely echogenic.? No focal hepatic mass lesions. ? No gallstones.? Small amount of sludge noted in the dependent portion of the gallbladder. ?Gallbladder wall is slightly thickened measuring 3.2 millimeters.? No pericholecystic fluid.? No sonographic Macdonald sign.? ? Biliary tree is nondilated.? Common bile duct is suboptimally visualized but measures approximately 4.3 millimeters. ? IMPRESSION:? No sonographic evidence of cholelithiasis.? Gallbladder wall is prominent measuring 3.2 millimeters which could be due to hepatocellular disease or early manifestation of acute cholecystitis. If there is clinical concern for cholecystitis, a nuclear medicine HIDA scan should be considered for further evaluation. ? ? ? Dictated by: Tara Han MD, PhD on 03/01/2022 at 17:53 ? ? Approved by: Tara Han MD, PhD on 03/01/2022 at 17:55 ? ECG Data Interpretation: EKG independently reviewed by myself [id number] reveals normal sinus rhythm at 81 bpm with regular axis and intervals. No STEMI, ST segment changes, arrhythmia, or acute ischemic changes. MDM Narrative Medical decision making narrative: This is an 81-year-old male who has a history of GERD, hyperlipidemia, essential tremor, hypertension, recent parenchymal hemorrhage in his right frontal lobe on 01/24/2022 from a fall which is unchanged in size today at the anterior right frontal deep white matter/painting white junctional region without additional lesions on CT head today without contrast. Patient presented to emergency department today by ambulance after he had a mechanical fall at home without known reason. He denies any lightheadedness, weakness, but states that he been weak and falling down a few times recently. He did not lose consciousness, he did not have any nausea vomiting episodes. His mental status is unchanged, GCS is 15, his speech is clear, he does not have any word-finding or new neuro deficit on my exam. Patient endorses one week of feeling fatigue, nausea, poor appetite, and more tired than usual. He endorses generalized discomfort in his abdomen, denies any heartburn symptoms. His liver enzymes were slightly elevated compared to his priors with an AST of 155, ALT of 101, no elevation to total bilirubin, alk-phos, lipase is significantly elevated at 1335 without priors to compare to. Patient's urine does not show any signs of infection or abnormal cells. No leukocytosis, WBC is 4.3 sodium of 133, chloride of 89, carbon dioxide 20, creatinine is stable on his baseline at 1.19 with a slightly decreased glucose of 75 without any mental status changes. Abdominal ultrasound of right upper quadrant obtained for elevation in liver enzymes before knowing of lipase was elevated. Ultrasound abdomen shows no sonographic evidence of cholelithiasis, gallbladder wall prominence measuring 3.2 mm which could be due to hepatocellular disease or early manifestation of acute cholecystitis. CT abdomen obtained after these findings and the lipase was added on and found to be 1335. CT abdomen pelvis shows inflammation involving the pancreatic head/uncinate process and the duodenum compatible with pancreatitis and duodenitis, cystic lesions involving the head of the pancreas which may represent pancreatic cystic neoplasm, choledochal cyst, or necrotic ampullary neoplasm, radiologist recommends endoscopy for additional evaluation. Severe hepatic steatosis, gallbladder wall prominence which could be related to hepatocellular disease or early manifestation of cholecystitis, colonic diverticulosis without evidence of diverticulitis. Consultation with Dr. Reyez Hospitalist who accepts patient for admission for frequent falls and the above diagnoses. <Charmaine Reaves, - Last Filed: 03/03/22 12:27> Lab Data Labs: Lab Results 03/01/22 03/01/22 03/01/22 Range/Units 06:42 06:42 13:18 WBC 4.3 L (4.5-11.0) X10^3/uL RBC 3.94 L (4.5-5.9) X10^6/uL Hgb 14.1 (13.5-17.5) g/dL Hct 41.1 (41-53) % MCV 104.2 H (80-100) fL MCH 35.9 H (26-34) PG MCHC 34.4 (30-36) % RDW 13.2 (11.6-14.8) % Plt Count 78 L (150-400) X10^3/uL Neut % (Auto) 49.0 L (50-75) % Lymph % (Auto) 34.7 (25-40) % [place] % (Auto) 12.5 (3-14) % Eos % (Auto) 2.9 (2-4) % Baso % (Auto) 0.9 (0-2) % Neut # (Auto) 2100 (3701-5571) /uL Lymph # (Auto) 1500 (1657-7757) /uL [place] # (Auto) 500 (0-900) /uL Eos # (Auto) 100 (0-450) /uL Baso # (Auto) 0 (0-100) /uL Sodium (137-145) mmol/L Potassium (3.4-5.1) mmol/L Chloride (98-107) mmol/L Carbon Dioxide (22-32) mmol/L BUN (9-20) mg/dL Creatinine (0.66-1.25) mg/dL Estimated GFR (>60) mL/min BUN/Creatinine Ratio (6-22) Glucose (80-110) mg/dL Calcium (8.4-10.2) mg/dL Total Bilirubin (0.2-1.3) mg/dL AST (17-59) IU/L ALT (<50) IU/L Alkaline Phosphatase (38-126) U/L Total Protein (6.3-8.2) g/dL Albumin (3.5-5.0) g/dL Globulin (1.7-4.1) g/dL Albumin/Globulin Ratio (1.0-2.8) Lipase (23-300) U/L Vitamin B12 Cancelled Folate Cancelled Urine RBC (0-5/HPF) Urine WBC (0-5/HPF) Ur Squamous Epith Cells (0-5/HPF) Urine Bacteria (None) Ur Culture Indicated? Chlamy pneumoniae PCR (Not Detect) Adenovirus (PCR) (Not Detect) B. pertussis DNA (PCR) (Not Detecte) B.parapertussis DNA PCR (Not Detecte) Coronavirus OC43 (PCR) (Not Detect) Coronavirus HKU1 (PCR) (Not Detect) Coronavirus 229E (PCR) (Not Detect) SARS-CoV-2 (PCR) (Not Detecte) Coronavirus NL63 (PCR) (Not Detect) Human Metapneumovir PCR (Not Detect) Influenza Type A (PCR) (Not Detect) Influenza Type B (PCR) (Not Detect) M. pneumoniae (PCR) (Not Detect) Parainfluenza 1 (PCR) (Not Detect) Parainfluenza 2 (PCR) (Not Detect) Parainfluenza 3 (PCR) (Not Detect) Parainfluenza 4 (PCR) (Not Detect) RSV (PCR) (Not Detect) Entero/Rhino (PCR) (Not Detect) 03/01/22 03/01/22 03/01/22 Range/Units 13:18 13:18 16:33 WBC (4.5-11.0) X10^3/uL RBC (4.5-5.9) X10^6/uL Hgb (13.5-17.5) g/dL Hct (41-53) % MCV (80-100) fL MCH (26-34) PG MCHC (30-36) % RDW (11.6-14.8) % Plt Count (150-400) X10^3/uL Neut % (Auto) (50-75) % Lymph % (Auto) (25-40) % [place] % (Auto) (3-14) % Eos % (Auto) (2-4) % Baso % (Auto) (0-2) % Neut # (Auto) (6967-2722) /uL Lymph # (Auto) (1418-9991) /uL [place] # (Auto) (0-900) /uL Eos # (Auto) (0-450) /uL Baso # (Auto) (0-100) /uL Sodium 133 L (137-145) mmol/L Potassium 4.1 (3.4-5.1) mmol/L Chloride 89 L (98-107) mmol/L Carbon Dioxide 20 L (22-32) mmol/L BUN 13 (9-20) mg/dL Creatinine 1.19 (0.66-1.25) mg/dL Estimated GFR > 60 (>60) mL/min BUN/Creatinine Ratio 10.9 (6-22) Glucose 75 L (80-110) mg/dL Calcium 9.1 (8.4-10.2) mg/dL Total Bilirubin 1.2 (0.2-1.3) mg/dL AST 155 H (17-59) IU/L ALT 101 H (<50) IU/L Alkaline Phosphatase 64 (38-126) U/L Total Protein 7.5 (6.3-8.2) g/dL Albumin 4.7 (3.5-5.0) g/dL Globulin 2.8 (1.7-4.1) g/dL Albumin/Globulin Ratio 1.7 (1.0-2.8) Lipase 1335 H (23-300) U/L Vitamin B12 Folate Urine RBC None seen (0-5/HPF) Urine WBC None seen (0-5/HPF) Ur Squamous Epith Cells None seen (0-5/HPF) Urine Bacteria None seen (None) Ur Culture Indicated? Cult not indicated Chlamy pneumoniae PCR (Not Detect) Adenovirus (PCR) (Not Detect) B. pertussis DNA (PCR) (Not Detecte) B.parapertussis DNA PCR (Not Detecte) Coronavirus OC43 (PCR) (Not Detect) Coronavirus HKU1 (PCR) (Not Detect) Coronavirus 229E (PCR) (Not Detect) SARS-CoV-2 (PCR) (Not Detecte) Coronavirus NL63 (PCR) (Not Detect) Human Metapneumovir PCR (Not Detect) Influenza Type A (PCR) (Not Detect) Influenza Type B (PCR) (Not Detect) M. pneumoniae (PCR) (Not Detect) Parainfluenza 1 (PCR) (Not Detect) Parainfluenza 2 (PCR) (Not Detect) Parainfluenza 3 (PCR) (Not Detect) Parainfluenza 4 (PCR) (Not Detect) RSV (PCR) (Not Detect) Entero/Rhino (PCR) (Not Detect) 03/01/22 Range/Units 18:40 WBC (4.5-11.0) X10^3/uL RBC (4.5-5.9) X10^6/uL Hgb (13.5-17.5) g/dL Hct (41-53) % MCV (80-100) fL MCH (26-34) PG MCHC (30-36) % RDW (11.6-14.8) % Plt Count (150-400) X10^3/uL Neut % (Auto) (50-75) % Lymph % (Auto) (25-40) % [place] % (Auto) (3-14) % Eos % (Auto) (2-4) % Baso % (Auto) (0-2) % Neut # (Auto) (3638-9861) /uL Lymph # (Auto) (7006-0858) /uL [place] # (Auto) (0-900) /uL Eos # (Auto) (0-450) /uL Baso # (Auto) (0-100) /uL Sodium (137-145) mmol/L Potassium (3.4-5.1) mmol/L Chloride (98-107) mmol/L Carbon Dioxide (22-32) mmol/L BUN (9-20) mg/dL Creatinine (0.66-1.25) mg/dL Estimated GFR (>60) mL/min BUN/Creatinine Ratio (6-22) Glucose (80-110) mg/dL Calcium (8.4-10.2) mg/dL Total Bilirubin (0.2-1.3) mg/dL AST (17-59) IU/L ALT (<50) IU/L Alkaline Phosphatase (38-126) U/L Total Protein (6.3-8.2) g/dL Albumin (3.5-5.0) g/dL Globulin (1.7-4.1) g/dL Albumin/Globulin Ratio (1.0-2.8) Lipase (23-300) U/L Vitamin B12 Folate Urine RBC (0-5/HPF) Urine WBC (0-5/HPF) Ur Squamous Epith Cells (0-5/HPF) Urine Bacteria (None) Ur Culture Indicated? Chlamy pneumoniae PCR Not detected (Not Detect) Adenovirus (PCR) Not detected (Not Detect) B. pertussis DNA (PCR) Not detected (Not Detecte) B.parapertussis DNA PCR Not detected (Not Detecte) Coronavirus OC43 (PCR) Not detected (Not Detect) Coronavirus HKU1 (PCR) Not detected (Not Detect) Coronavirus 229E (PCR) Not detected (Not Detect) SARS-CoV-2 (PCR) Not detected (Not Detecte) Coronavirus NL63 (PCR) Not detected (Not Detect) Human Metapneumovir PCR Not detected (Not Detect) Influenza Type A (PCR) Not detected (Not Detect) Influenza Type B (PCR) Not detected (Not Detect) M. pneumoniae (PCR) Not detected (Not Detect) Parainfluenza 1 (PCR) Not detected (Not Detect) Parainfluenza 2 (PCR) Not detected (Not Detect) Parainfluenza 3 (PCR) Not detected (Not Detect) Parainfluenza 4 (PCR) Not detected (Not Detect) RSV (PCR) Not detected (Not Detect) Entero/Rhino (PCR) Not detected (Not Detect) Urine Dip Bedside Urine Glucose Negative Bedside Urine Bilirubin - Negative Bedside Urine Ketone + 15 Urine Specific [place] 1.015 Bedside Urine Occult Blood - Negative Bedside Urine pH 6 Bedside Urine Protein - Negative Bedside Urine Urobilinogen - Negative Bedside Urine Nitrite - Negative Bedside Urine Leukocytes - Negative Esterase Discharge Plan Departure Patient Disposition: Admitted As Inpatient Clinical Impression: Elevated liver enzymes, Fatty liver, Cholecystitis, Acute duodenitis Acute pancreatitis Qualifiers: Pancreatitis type: unspecified pancreatitis type Acute pancreatitis complication: unspecified Qualified Code(s): K85.90 - Acute pancreatitis without necrosis or infection, unspecified Fall Qualifiers: Encounter type: initial encounter Qualified Code(s): W19.XXXA - Unspecified fall, initial encounter Head injury Qualifiers: Encounter type: initial encounter Qualified Code(s): S09.90XA - Unspecified injury of head, initial encounter Admit Date/Time: 03/01/22 19:19 Admit Provider: Jah Reyez <Charmaine Reaves DO - Last Filed: 03/03/22 12:27> Cosign ED Attending Cosignature Attestation: I was immediately available in the department for consultation. Documentation has been reviewed.
[2022-03-01 16:46] LABS: Bacteria Urine None Seen; Culture Indicated Urine Cult Not Indicated; RBC Urine None Seen (0-5/HPF); Squamous Epithelial Cell Urine None Seen (0-5/HPF); WBC Urine None Seen (0-5/HPF)
[2022-03-01 16:51] LABS: Alanine Aminotransferase 101 IU/L (<50); Alkaline Phosphatase 64 U/L (38-126); Aspartate Aminotransferase 155 IU/L (17-59); BUN Creatinine Ratio 10.9 (6-22); Bilirubin Total 1.2 mg/dL (0.2-1.3); Blood Urea Nitrogen 13 mg/dL (9-20); Calcium 9.1 mg/dL (8.4-10.2); Carbon Dioxide 20 mmol/L (22-32); Chloride 89 mmol/L (98-107); Estimated Glomerular Filt Rate > 60 mL/min (>60); Glucose 75 mg/dL (80-110); Potassium 4.1 mmol/L (3.4-5.1); Sodium 133 mmol/L (137-145)
[2022-03-01 16:52] LABS: Albumin 4.7 g/dL (3.5-5.0); Albumin Globulin Ratio 1.7 (1.0-2.8); Globulin 2.8 g/dL (1.7-4.1); HEMOLYSIS < 15 (0-50); Total Protein 7.5 g/dL (6.3-8.2)
--- NOTE | 2022-03-01 16:53 | DI.US.S_ITS ---
PROCEDURE: US ABDOMEN LIMITED INDICATIONS: cholelithiasis TECHNIQUE: Real-time focused scanning was performed of the abdomen, with image documentation. COMPARISON: None. FINDINGS: Liver is normal in size. Liver is diffusely echogenic. No focal hepatic mass lesions. No gallstones. Small amount of sludge noted in the dependent portion of the gallbladder. Gallbladder wall is slightly thickened measuring 3.2 millimeters. No pericholecystic fluid. No sonographic Macdonald sign. Biliary tree is nondilated. Common bile duct is suboptimally visualized but measures approximately 4.3 millimeters. IMPRESSION: No sonographic evidence of cholelithiasis. Gallbladder wall is prominent measuring 3.2 millimeters which could be due to hepatocellular disease or early manifestation of acute cholecystitis. If there is clinical concern for cholecystitis, a nuclear medicine HIDA scan should be considered for further evaluation. Dictated by: Tara Han MD, PhD on 03/01/2022 at 17:53 Approved by: Tara Han MD, PhD on 03/01/2022 at 17:55
--- NOTE | 2022-03-01 17:20 | DI.CT.S_ITS ---
PROCEDURE: CT ABDOMEN PELVIS W CON INDICATIONS: fall, nausea, fatigue, weakness, hepatomegaly on US, fartun? TECHNIQUE: After the administration of intravenous contrast, axial sections acquired from the lung bases to the pubic symphysis. Coronal and sagittal reformats were performed. For radiation dose reduction, the following was used: automated exposure control, adjustment of mA and/or kV according to patient size. COMPARISON: [facility], CT, ABDOMEN/PELVIS WITH CONTRAST, 07/31/2009, 7:41. [facility], US, US ABDOMEN LIMITED, 03/01/2022, 17:05. FINDINGS: Image quality: Excellent. Lung bases: Unremarkable. Heart: No significant findings. ABDOMEN: Liver: Diffuse fatty infiltration of liver. Gallbladder: Gallbladder wall is prominent which could be due to hepatocellular disease or early manifestation of acute cholecystitis. Biliary ducts: Unremarkable. Pancreas: Mild inflammatory changes noted adjacent to the uncinate process and head of the pancreas. 1.5 centimeter in maximum diameter cystic lesion noted in the head of the pancreas or could represent a choledochal cyst. Spleen: Unremarkable. Adrenal Glands: Unremarkable. Kidneys and Ureters: Unremarkable. Stomach and Bowel: Mild phlegm a anjana changes noted in the duodenum adjacent to the pancreatic head. Stomach and colon are unremarkable. Numerous diverticuli noted in the sigmoid colon without evidence of diverticulitis. The appendix is normal. Peritoneum: Small amount of free fluid noted adjacent to the pancreatic head and the proximal duodenum which tracks into the right pericolic gutter. No free air. Ventral Wall: No hernias. Abdominal Nodes: No retroperitoneal or mesenteric adenopathy by size criteria. Vessels: Aorta and inferior vena cava are normal in size. Scattered atherosclerotic calcifications involving the abdominal and pelvic vasculature. PELVIS: Pelvic Organs: Unremarkable. Bladder: Unremarkable. Pelvic Nodes: No enlarged lymph nodes. Miscellaneous: No hernias are seen. Bones: Spine degenerative disc disease and facet arthropathy. Right hip arthroplasty. IMPRESSION: 1. Inflammation involving the pancreatic head/uncinate process and the duodenum compatible with pancreatitis and duodenitis. 2. Cystic lesion involving the head of the pancreas which may represent pancreatic cystic neoplasm, choledochal cyst or necrotic ampullary neoplasm. Recommend endoscopy for additional evaluation. 3. Severe hepatic steatosis. 4. Gallbladder wall prominence which could be related to a patter several disease or early manifestation of acute cholecystitis. 5. Colonic diverticulosis without evidence of diverticulitis. Dictated by: Tara Han MD, PhD on 03/01/2022 at 17:56 Approved by: Tara Han MD, PhD on 03/01/2022 at 18:05
[2022-03-01] MEDS: ONDANSETRON 4 MG ODT SL (18:09)
[2022-03-01] MEDS: ACETAMINOPHEN 325 MG TABLET 650 MG PO (18:09)
[2022-03-01 19:01] LABS: Lipase 1335 U/L (23-300)
[2022-03-01 20:51] LABS: Adenovirus Not Detected (Not Detect); B. parapertussis Not Detected (Not Detecte); Bordetella pertussis Not Detected (Not Detecte); Chlamydophila pneumoniae Not Detected (Not Detect); Coronavirus 229E Not Detected (Not Detect); Coronavirus HKU1 Not Detected (Not Detect); Coronavirus NL 63 Not Detected (Not Detect); Coronavirus OC43 Not Detected (Not Detect); Human Metapneumovirus Not Detected (Not Detect); Human Rhinovirus/Enterovirus Not Detected (Not Detect); Influenza A Not Detected (Not Detect); Influenza B Not Detected (Not Detect); Mycoplasma pneumoniae Not Detected (Not Detect); Parainfluenza Virus 1 Not Detected (Not Detect); Parainfluenza Virus 2 Not Detected (Not Detect); Parainfluenza Virus 3 Not Detected (Not Detect); Parainfluenza Virus 4 Not Detected (Not Detect); Respiratory Syncytial Virus Not Detected (Not Detect); SARS- CoV-2 Not Detected (Not Detecte)
--- NOTE | 2022-03-01 21:37 | PM.HP.1 ---
History of Present Illness History of Present Illness Date Patient Seen: 03/01/22 Time Patient Seen: 21:38 Chief complaint: GLF Narrative: This is an 81-year-old male with hypertension, hyperlipidemia, GERD, recurrent falls and ?months of stomach upset. ? He presents today with a syncopal fall in the bathroom after urinating this morning. He does not think he hit his head but he also suspects he briefly lost consciousness. He is unable to formulate any particular reason for why he has fallen several times recently. He says his left hip is weak but not really painful. He has already had his right hip replaced. He fell 2 weeks ago and did experience an intraparenchymal bleed, 5 mm in the right frontal lobe. He also fell 6 weeks ago and has a healing right ankle fracture, currently in a brace. He has had a poor appetite and has vomited a few times but does not have any real nausea or abdominal pain. This has been going on for ?months. ? On evaluation he has evident asymptomatic pancreatitis with a lipase level of 1,[address] scan showing pancreatic inflammation, a possible pancreatic neoplasm and sludge in his gallbladder. He drinks 3 drinks of whiskey on Friday nights and Friday nights and does not drink any other alcohol. He has no history of hypertriglyceridemia, prior pancreatitis, excessive alcohol use or cholecystitis. Patient History Medical History (Updated 03/01/22 @ 22:41 by Jah Reyez MD) Combined hyperlipidemia Concussion Essential tremor Falls frequently GERD (gastroesophageal reflux disease) Intraparenchymal hemorrhage of brain Surgical History (Reviewed 03/01/22 @ 16:46 by Margoth Mcdonald [facility] [place]) S/P total hip arthroplasty Status post colonoscopy Status post radical cystoprostatectomy Family & Social History Family History (Updated 03/01/22 @ 22:42 by Jah Reyez MD) Father Prostate cancer Kidney problem Mother Old age Safety & Behavioral: Feels Safe in Current Yes Environment Been Physically Hurt or No Threatened By a Person Tobacco & Substance use: Smoking Status Former smoker alcohol intake current alcohol intake frequency a few times a week Substance Use Type does not use Meds Home Medications and Allergies Home Medications Medication Instructions Recorded Confirmed Type MULTIVITAMIN (#MULTIPLE VITAMINS) 1 cap PO Q DAY ##0 03/31/12 01/31/22 History aspirin 81 mg tablet,delayed 81 mg PO DAILY 06/21/21 01/31/22 History release (Adult Low Dose Aspirin) propranolol 20 mg tablet 20 mg PO BID #180 tabs 11/06/21 01/31/22 Rx omeprazole 20 mg capsule,delayed 20 mg PO DAILY #90 caps 02/09/22 Rx release Allergies Allergy/AdvReac Type Severity Reaction Status Date / Time No Known Allergies Allergy Verified 03/01/22 22:35 Review of Systems Review of Systems Narrative: Positive for falling, syncope, right ankle fracture, GI upset. Negative for fevers, chills, sweats, abdominal pain, coughing, chest pain, headaches, seizures, rashes, sore throat, new allergies. Exam Vital Signs (past 8 hours): - 03/01/22 14:30 03/01/22 19:10 03/01/22 16:00 Pulse Rate 70 69 71 Respiratory Rate 11 L 15 18 Blood Pressure 130/60 110/54 L 116/58 L Pulse Oximetry 96 94 97 Oxygen Delivery Method Room Air Room Air Room Air 03/01/22 16:30 03/01/22 17:00 03/01/22 17:30 Pulse Rate 80 68 60 Respiratory Rate 16 15 18 Blood Pressure 129/66 128/61 138/59 L Pulse Oximetry 96 95 96 Oxygen Delivery Method Room Air Room Air Room Air Oxygen Delivery Method Room Air Objective Imaging CT scan - abdomen: Radiologist's impression: PROCEDURE:? CT ABDOMEN PELVIS W CON ? INDICATIONS:? fall, nausea, fatigue, weakness, hepatomegaly on US, fartun? ? TECHNIQUE:? After the administration of intravenous contrast, axial sections acquired from the lung bases to the pubic symphysis.? Coronal and sagittal reformats were performed.? For radiation dose reduction, the following was used:? automated exposure control, adjustment of mA and/or kV according to patient size.? ? COMPARISON:? [facility], CT, ABDOMEN/PELVIS WITH CONTRAST, 07/31/2009, 7:41.? [facility], US, US ABDOMEN LIMITED, 03/01/2022, 17:05. ? FINDINGS:? Image quality:? Excellent.? ? Lung bases:? Unremarkable. Heart:? No significant findings. ? ABDOMEN: Liver:? Diffuse fatty infiltration of liver.? Gallbladder:? Gallbladder wall is prominent which could be due to hepatocellular disease or early manifestation of acute cholecystitis. Biliary ducts:? Unremarkable.? ? Pancreas:? Mild inflammatory changes noted adjacent to the uncinate process and head of the pancreas.? 1.5 centimeter in maximum diameter cystic lesion noted in the head of the pancreas or could represent a choledochal cyst. Spleen:? Unremarkable.? ? Adrenal Glands:? Unremarkable.? ? Kidneys and Ureters:? Unremarkable.? ? ? Stomach and Bowel:? Mild phlegm a anjana changes noted in the duodenum adjacent to the pancreatic head.? Stomach and colon are unremarkable.? Numerous diverticuli noted in the sigmoid colon without evidence of diverticulitis.? The appendix is normal. Peritoneum:? Small amount of free fluid noted adjacent to the pancreatic head and the proximal duodenum which tracks into the right pericolic gutter.? No free air.? ? Ventral Wall: ? No hernias.? Abdominal Nodes:? No retroperitoneal or mesenteric adenopathy by size criteria.? Vessels:? Aorta and inferior vena cava are normal in size. Scattered atherosclerotic calcifications involving the abdominal and pelvic vasculature.? ? PELVIS: Pelvic Organs:? Unremarkable.? ? Bladder:? Unremarkable.? ? Pelvic Nodes: No enlarged lymph nodes.? Miscellaneous: No hernias are seen. ? ? ? Bones:? Spine degenerative disc disease and facet arthropathy.? Right hip arthroplasty. ? ? IMPRESSION:? ? 1. Inflammation involving the pancreatic head/uncinate process and the duodenum compatible with pancreatitis and duodenitis. ? 2. Cystic lesion involving the head of the pancreas which may represent pancreatic cystic neoplasm, choledochal cyst or necrotic ampullary neoplasm.? Recommend endoscopy for additional evaluation. ? 3. Severe hepatic steatosis.? ? 4. Gallbladder wall prominence which could be related to a patter several disease or early manifestation of acute cholecystitis. ? 5. Colonic diverticulosis without evidence of diverticulitis.? ? ? Dictated by: Tara Han MD, PhD on 03/01/2022 at 17:56 ?? Labs Result Diagrams: 03/01/22 13:18 03/01/22 13:18 Labs: Laboratory Results - last 24 hr 03/01/22 03/01/22 03/01/22 13:18 13:18 13:18 WBC 4.3 L RBC 3.94 L Hgb 14.1 Hct 41.1 MCV 104.2 H MCH 35.9 H MCHC 34.4 RDW 13.2 Plt Count 78 L Neut % (Auto) 49.0 L Lymph % (Auto) 34.7 Gem % (Auto) 12.5 Eos % (Auto) 2.9 Baso % (Auto) 0.9 Neut # (Auto) 2100 Lymph # (Auto) 1500 Gem # (Auto) 500 Eos # (Auto) 100 Baso # (Auto) 0 Sodium 133 L Potassium 4.1 Chloride 89 L Carbon Dioxide 20 L BUN 13 Creatinine 1.19 Estimated GFR > 60 BUN/Creatinine Ratio 10.9 Glucose 75 L Calcium 9.1 Total Bilirubin 1.2 AST 155 H ALT 101 H Alkaline Phosphatase 64 Total Protein 7.5 Albumin 4.7 Globulin 2.8 Albumin/Globulin Ratio 1.7 Lipase 1335 H Urine RBC Urine WBC Ur Squamous Epith Cells Urine Bacteria Ur Culture Indicated? Chlamy pneumoniae PCR Adenovirus (PCR) B. pertussis DNA (PCR) B.parapertussis DNA PCR Coronavirus OC43 (PCR) Coronavirus HKU1 (PCR) Coronavirus 229E (PCR) SARS-CoV-2 (PCR) Coronavirus NL63 (PCR) Human Metapneumovir PCR Influenza Type A (PCR) Influenza Type B (PCR) M. pneumoniae (PCR) Parainfluenza 1 (PCR) Parainfluenza 2 (PCR) Parainfluenza 3 (PCR) Parainfluenza 4 (PCR) RSV (PCR) Entero/Rhino (PCR) 03/01/22 03/01/22 16:33 18:40 WBC RBC Hgb Hct MCV MCH MCHC RDW Plt Count Neut % (Auto) Lymph % (Auto) Gem % (Auto) Eos % (Auto) Baso % (Auto) Neut # (Auto) Lymph # (Auto) Gem # (Auto) Eos # (Auto) Baso # (Auto) Sodium Potassium Chloride Carbon Dioxide BUN Creatinine Estimated GFR BUN/Creatinine Ratio Glucose Calcium Total Bilirubin AST ALT Alkaline Phosphatase Total Protein Albumin Globulin Albumin/Globulin Ratio Lipase Urine RBC None seen Urine WBC None seen Ur Squamous Epith Cells None seen Urine Bacteria None seen Ur Culture Indicated? Cult not indicated Chlamy pneumoniae PCR Not detected Adenovirus (PCR) Not detected B. pertussis DNA (PCR) Not detected B.parapertussis DNA PCR Not detected Coronavirus OC43 (PCR) Not detected Coronavirus HKU1 (PCR) Not detected Coronavirus 229E (PCR) Not detected SARS-CoV-2 (PCR) Not detected Coronavirus NL63 (PCR) Not detected Human Metapneumovir PCR Not detected Influenza Type A (PCR) Not detected Influenza Type B (PCR) Not detected M. pneumoniae (PCR) Not detected Parainfluenza 1 (PCR) Not detected Parainfluenza 2 (PCR) Not detected Parainfluenza 3 (PCR) Not detected Parainfluenza 4 (PCR) Not detected RSV (PCR) Not detected Entero/Rhino (PCR) Not detected Assessment & Plan Assessment & Plan narrative: This is an 81-year-old male with hypertension, hyperlipidemia, GERD, recurrent falls and ?months of stomach upset. ? He presents today with a syncopal fall in the bathroom after urinating this morning. He does not think he hit his head but he also suspects he briefly lost consciousness. He is unable to formulate any particular reason for why he has fallen several times recently. Acute syncopal collapse, present on admission. Active. -elevated lipase and abnormal pancreas on CT scan suggests occult pancreatitis contributing. -probable vasovagal post voiding syncope. 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 Active. -he has vague ?stomach upset? symptoms without abdominal pain or severe vomiting. -he will be kept NPO with IV fluid for the 1st 24 hours and the lipase will be followed. -check triglycerides. -he is a weekend whiskey drinker who denies any other alcohol intake although that could still be the cause. -Per CT: Inflammation involving the pancreatic head/uncinate process and the duodenum compatible with pancreatitis and duodenitis. Cystic lesion involving the head of the pancreas which may represent pancreatic cystic neoplasm, choledochal cyst or necrotic ampullary neoplasm.? Recommend endoscopy for additional evaluation. ? Thrombocytopenia, present on admission. Active. -admit platelets of 78 -likely indicative of excessive alcohol intake? -follow and consider consultation Macrocytosis, present on admission. Active. -MCV of 104.2, suggestive of B12 deficiency, folate deficiency, alcoholic bone marrow toxicity. -check B12 and Folate Hypertension, present on admission. Chronic. -continue propanolol Essential Tremor, present on admission. Chronic. -Continue Propanolol Hyperlipidemia, present on admission. Chronic. -no current treatment, check lipid levels in the morning Right ankle fracture, present on admission. Chronic. -continue bracing and outpatient Ortho follow-up Right frontal intraparenchymal bleed, present on admission. Chronic. -unclear relationship to recurrent falls Regular alcohol use, present on admission. Chronic. -admits to 3 drinks of whiskey on Friday night and 3 drinks on Friday night but denies any other alcohol intake. His backup decision maker is his Kirstin alonso. Lovenox for DVT prevention Time Spent With Patient Critical Care time: I spent a total of [] minutes of critical care time on this patient's care today; this time is exclusive of procedural time.
[2022-03-01] MEDS: DEXTROSE 5%-0.9% NS 1,000 ML 100 ML IV (23:34)
--- NOTE | 2022-03-02 00:15 | PC.NURSE ---
Pt. admitted to room 209 arrived to the floor @2300. Admit assessment was done by [place]. Alert & oriented, showed him how to use his call light, TV & bed controls. Frequent falls @ home reports fallen @ home at least 3-4 times. High risks fall precautions implemented & instructed not to get OOB with out calling for assistance. Call light within reach & urinal with in reach. Will cont. POC & monitor.
[2022-03-02 05:59] VITALS: BP 149/94; PULSE 95; RESP 16; TEMP 37.4; O2SAT 96
[2022-03-02 07:01] LABS: Add Manual Diff / Slide Review NO; Basophils Absolute Auto 0 /uL (0-100); Basophils Percent Auto 0.8 % (0-2); Eosinophils Absolute Auto 100 /uL (0-450); Eosinophils Percent Auto 2.7 % (2-4); Hematocrit 36.1 % (41-53); Hemoglobin 12.6 g/dL (13.5-17.5); Lymphocytes Absolute Auto 500 /uL (1100-4500); Lymphocytes Percent Auto 13.4 % (25-40); Mean Corpuscular HGB Conc 34.8 % (30-36); Mean Corpuscular Hemoglobin 35.8 PG (26-34); Mean Corpuscular Volume 102.8 fL (80-100); Monocytes Absolute Auto 600 /uL (0-900); Monocytes Percent Auto 15.6 % (3-14); Neutrophils Absolute Auto 2600 /uL (1500-7000); Neutrophils Percent Auto 67.5 % (50-75); Platelet Count 63 X10^3/uL (150-400); Red Blood Cell Count 3.51 X10^6/uL (4.5-5.9); Red Cell Distribution Width 13.1 % (11.6-14.8); White Blood Cell Count 3.8 X10^3/uL (4.5-11.0)
[2022-03-02 07:45] VITALS: BP 156/74; PULSE 97; RESP 16; TEMP 37.1; O2SAT 93
[2022-03-02 07:57] LABS: Alanine Aminotransferase 88 IU/L (<50); Albumin Globulin Ratio 1.5 (1.0-2.8); Alkaline Phosphatase 60 U/L (38-126); Aspartate Aminotransferase 102 IU/L (17-59); Bilirubin Total 1.5 mg/dL (0.2-1.3); Blood Urea Nitrogen 13 mg/dL (9-20); Calcium 8.5 mg/dL (8.4-10.2); Carbon Dioxide 22 mmol/L (22-32); Chloride 95 mmol/L (98-107); Estimated Glomerular Filt Rate > 60 mL/min (>60); Globulin 2.6 g/dL (1.7-4.1); Glucose 113 mg/dL (80-110); HEMOLYSIS < 15 (0-50); Potassium 3.9 mmol/L (3.4-5.1); Sodium 135 mmol/L (137-145); Total Protein 6.6 g/dL (6.3-8.2)
[2022-03-02 07:58] LABS: Cholesterol 158 mg/dL (140-199); HDL Cholesterol 89 mg/dL (40-60); LDL Cholesterol Calculated 57 mg/dL (<100); Triglycerides 62 mg/dL (35-150)
[2022-03-02 08:29] LABS: Lipase 1170 U/L (23-300)
--- NOTE | 2022-03-02 09:34 | P.PN_ITS ---
Subjective Subjective Interval history: pt is awake, alert, oriented, has no new complaints, denies chest pain or shortness of breath, nausea, vomiting Exam Vital Signs (past 8 hours): - 03/02/22 05:59 03/02/22 07:45 Temperature 99.3 F 98.8 F Pulse Rate 95 H 97 H Respiratory Rate 16 16 Blood Pressure 149/94 H 156/74 H Pulse Oximetry 96 93 Oxygen Flow Rate 0 0 Oxygen Delivery Method Room Air Oxygen Flow Rate 0 Const General: cooperative and well developed Orientation: alert, awake and oriented x3 HENMT Head: normal to inspection Ears: external ears normal Mouth: oral mucosae normal Eyes Pupils: PERRL EOM: EOM intact bilaterally Neck Neck: normal visual inspection and full ROM Resp Effort & Inspection: normal respiratory effort Auscultation: clear to auscultation bilaterally Cardio Rate: regular rate Rhythm: regular rhythm GI Palpation: soft and no hepatosplenomegaly Auscultation: normal bowel sounds Skin General: no rashes or lesions noted Neuro General: patient alert, patient awake, patient oriented x3, moves all extremities and no focal motor deficits Speech: speech normal Extrem General: normal to inspection, full ROM and no pedal edema Psych Appearance: grossly normal Objective Labs Result Diagrams: 03/02/22 06:42 03/02/22 06:42 Labs: Laboratory Results - last 24 hr 03/01/22 03/01/22 03/01/22 06:42 06:42 13:18 WBC 4.3 L RBC 3.94 L Hgb 14.1 Hct 41.1 MCV 104.2 H MCH 35.9 H MCHC 34.4 RDW 13.2 Plt Count 78 L Neut % (Auto) 49.0 L Lymph % (Auto) 34.7 Atlantic % (Auto) 12.5 Eos % (Auto) 2.9 Baso % (Auto) 0.9 Neut # (Auto) 2100 Lymph # (Auto) 1500 [place] # (Auto) 500 Eos # (Auto) 100 Baso # (Auto) 0 Sodium Potassium Chloride Carbon Dioxide BUN Creatinine Estimated GFR BUN/Creatinine Ratio Glucose Calcium Total Bilirubin AST ALT Alkaline Phosphatase Total Protein Albumin Globulin Albumin/Globulin Ratio Triglycerides Cholesterol LDL Cholesterol, Calc HDL Cholesterol Lipase Vitamin B12 Cancelled Folate Cancelled Urine RBC Urine WBC Ur Squamous Epith Cells Urine Bacteria Ur Culture Indicated? Chlamy pneumoniae PCR Adenovirus (PCR) B. pertussis DNA (PCR) B.parapertussis DNA PCR Coronavirus OC43 (PCR) Coronavirus HKU1 (PCR) Coronavirus 229E (PCR) SARS-CoV-2 (PCR) Coronavirus NL63 (PCR) Human Metapneumovir PCR Influenza Type A (PCR) Influenza Type B (PCR) M. pneumoniae (PCR) Parainfluenza 1 (PCR) Parainfluenza 2 (PCR) Parainfluenza 3 (PCR) Parainfluenza 4 (PCR) RSV (PCR) Entero/Rhino (PCR) 03/01/22 03/01/22 03/01/22 13:18 13:18 16:33 WBC RBC Hgb Hct MCV MCH MCHC RDW Plt Count Neut % (Auto) Lymph % (Auto) Atlantic % (Auto) Eos % (Auto) Baso % (Auto) Neut # (Auto) Lymph # (Auto) Atlantic # (Auto) Eos # (Auto) Baso # (Auto) Sodium 133 L Potassium 4.1 Chloride 89 L Carbon Dioxide 20 L BUN 13 Creatinine 1.19 Estimated GFR > 60 BUN/Creatinine Ratio 10.9 Glucose 75 L Calcium 9.1 Total Bilirubin 1.2 AST 155 H ALT 101 H Alkaline Phosphatase 64 Total Protein 7.5 Albumin 4.7 Globulin 2.8 Albumin/Globulin Ratio 1.7 Triglycerides Cholesterol LDL Cholesterol, Calc HDL Cholesterol Lipase 1335 H Vitamin B12 Folate Urine RBC None seen Urine WBC None seen Ur Squamous Epith Cells None seen Urine Bacteria None seen Ur Culture Indicated? Cult not indicated Chlamy pneumoniae PCR Adenovirus (PCR) B. pertussis DNA (PCR) B.parapertussis DNA PCR Coronavirus OC43 (PCR) Coronavirus HKU1 (PCR) Coronavirus 229E (PCR) SARS-CoV-2 (PCR) Coronavirus NL63 (PCR) Human Metapneumovir PCR Influenza Type A (PCR) Influenza Type B (PCR) M. pneumoniae (PCR) Parainfluenza 1 (PCR) Parainfluenza 2 (PCR) Parainfluenza 3 (PCR) Parainfluenza 4 (PCR) RSV (PCR) Entero/Rhino (PCR) 03/01/22 03/02/22 03/02/22 18:40 06:42 06:42 WBC 3.8 L RBC 3.51 L Hgb 12.6 L Hct 36.1 L MCV 102.8 H MCH 35.8 H MCHC 34.8 RDW 13.1 Plt Count 63 L Neut % (Auto) 67.5 Lymph % (Auto) 13.4 L D Atlantic % (Auto) 15.6 H Eos % (Auto) 2.7 Baso % (Auto) 0.8 Neut # (Auto) 2600 Lymph # (Auto) 500 L Atlantic # (Auto) 600 Eos # (Auto) 100 Baso # (Auto) 0 Sodium 135 L Potassium 3.9 Chloride 95 L Carbon Dioxide 22 BUN 13 Creatinine 0.93 Estimated GFR > 60 BUN/Creatinine Ratio 14.0 Glucose 113 H Calcium 8.5 Total Bilirubin 1.5 H AST 102 H ALT 88 H Alkaline Phosphatase 60 Total Protein 6.6 Albumin 4.0 Globulin 2.6 Albumin/Globulin Ratio 1.5 Triglycerides Cholesterol LDL Cholesterol, Calc HDL Cholesterol Lipase 1170 H Vitamin B12 Folate Urine RBC Urine WBC Ur Squamous Epith Cells Urine Bacteria Ur Culture Indicated? Chlamy pneumoniae PCR Not detected Adenovirus (PCR) Not detected B. pertussis DNA (PCR) Not detected B.parapertussis DNA PCR Not detected Coronavirus OC43 (PCR) Not detected Coronavirus HKU1 (PCR) Not detected Coronavirus 229E (PCR) Not detected SARS-CoV-2 (PCR) Not detected Coronavirus NL63 (PCR) Not detected Human Metapneumovir PCR Not detected Influenza Type A (PCR) Not detected Influenza Type B (PCR) Not detected M. pneumoniae (PCR) Not detected Parainfluenza 1 (PCR) Not detected Parainfluenza 2 (PCR) Not detected Parainfluenza 3 (PCR) Not detected Parainfluenza 4 (PCR) Not detected RSV (PCR) Not detected Entero/Rhino (PCR) Not detected 03/02/22 03/02/22 06:42 06:42 WBC RBC Hgb Hct MCV MCH MCHC RDW Plt Count Neut % (Auto) Lymph % (Auto) Atlantic % (Auto) Eos % (Auto) Baso % (Auto) Neut # (Auto) Lymph # (Auto) Atlantic # (Auto) Eos # (Auto) Baso # (Auto) Sodium Potassium Chloride Carbon Dioxide BUN Creatinine Estimated GFR BUN/Creatinine Ratio Glucose Calcium Total Bilirubin AST ALT Alkaline Phosphatase Total Protein Albumin Globulin Albumin/Globulin Ratio Triglycerides 62 Cholesterol 158 LDL Cholesterol, Calc 57 HDL Cholesterol 89 H Lipase Cancelled Vitamin B12 Folate Urine RBC Urine WBC Ur Squamous Epith Cells Urine Bacteria Ur Culture Indicated? Chlamy pneumoniae PCR Adenovirus (PCR) B. pertussis DNA (PCR) B.parapertussis DNA PCR Coronavirus OC43 (PCR) Coronavirus HKU1 (PCR) Coronavirus 229E (PCR) SARS-CoV-2 (PCR) Coronavirus NL63 (PCR) Human Metapneumovir PCR Influenza Type A (PCR) Influenza Type B (PCR) M. pneumoniae (PCR) Parainfluenza 1 (PCR) Parainfluenza 2 (PCR) Parainfluenza 3 (PCR) Parainfluenza 4 (PCR) RSV (PCR) Entero/Rhino (PCR) [facility] Medical History (Updated 03/01/22 @ 22:41 by Jah Reyez MD) Combined hyperlipidemia Concussion Essential tremor Falls frequently GERD (gastroesophageal reflux disease) Intraparenchymal hemorrhage of brain Surgical History S/P total hip arthroplasty Status post colonoscopy Status post radical cystoprostatectomy Family History (Updated 03/01/22 @ 22:42 by Jah Reyez MD) Father Prostate cancer Kidney problem Mother Old age Social History household members: spouse Smoking Status: Former smoker Tobacco: How many years used: 50 second hand exposure: No alcohol intake: current substance use type: does not use Assessment & Plan Assessment & Plan narrative: Acute pancreatitis -elevated lipase and abnormal pancreas on CT scan -pending for lipase this morning - npo -IVF Syncope likely vasovagal -pending US carotids and ECHO Pancreatic mass - needs EGD , concern for malignancy -consider surgery evaluation 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 Chronic.? -continue bracing and outpatient f/u Right frontal intraparenchymal bleed? Chronic/Unchanged.? -close monitoring Alcohol abuse 3 glassess of Visky weekly -CIWA -counseled to stop? DVT prophylaxis; SCD, hold on lovenox due to thrombocytopenia Time Spent With Patient Critical Care time: I spent a total of [] minutes of critical care time on this patient's care today; this time is exclusive of procedural time. Quality VTE Deep Vein Thrombosis/Pulmonary Embolism Present on Admission: No
--- NOTE | 2022-03-02 09:38 | DI.ECHO.S_ITS ---
[facility] +---------+ : : [address] : : : : [id number] : : : : Phone: [phone] Echocardiogram Report + + :Name: OJ WONG Study Date: 03/03/2022 Height: 70 in : :[facility] ReadingLocation: Weight: 185 lb: : Gender: Male BSA: 2.0 m2 : :: 1940 Age: 81 yrs : :Reason For Study: syncope : :Ordering Physician: : :JENNIFER ROBERTS Performed By: Katie Crawford : :Referring: UNSPECIFIED : + + Interpretation Summary Technically difficult study. The left ventricle is normal in size and wall thickness. LV ejection fraction appears to be 60 to 65%. The right ventricle is normal in size and function. There is a calcified nodular thickening of right coronary cusp extends into the LV outflow tract area without any significant aortic stenosis or regurgitation. There is mild tricuspid regurgitation. The right ventricular systolic pressure is estimated to be at least 29 mmHg based on an estimated right atrial pressure of 3 mm Hg. Procedure: A two-dimensional transthoracic echocardiogram with color flow and Doppler was performed. The study quality was technically difficult. Patient was supine, upright and unable to participate with breathing techniques. A contrast injection of Definity was performed to improve assessment of LV function. The patient was in normal sinus rhythm during the exam. Left Ventricle: The left ventricle is normal in size and wall thickness. There is no thrombus. The ejection fraction is estimated to be 60-65%. Septal motion is consistent with conduction abnormality. Diastolic parameters suggest a relaxation abnormality of the left ventricle, consistent with probable normal filling pressures. Right Ventricle: The right ventricle is normal in size and function. Atria: Both atria are normal in size. There is no Doppler evidence for an interatrial shunt. Mitral Valve: The mitral valve leaflets appear mildly thickened, but open well. There is mild mitral annular calcification. There is trace mitral regurgitation. Aortic Valve: The aortic valve is not well visualized. There is discrete nodular thickening of the right coronary cusp. There is a calcified nodular thickening of right coronary cusp extends into the LV outflow tract area without any significant aortic stenosis or regurgitation. There is no hemodynamically significant valvular aortic stenosis. No aortic regurgitation is present. Tricuspid Valve: The tricuspid valve is not well visualized, but is grossly normal. There is mild tricuspid regurgitation. The right ventricular systolic pressure is estimated to be at least 29 mmHg based on an estimated right atrial pressure of 3 mm Hg. Pulmonic Valve: The pulmonic valve is not well seen, but is grossly normal. Great Vessels: The aortic root is borderline dilated. The ascending aorta could not be visualized. The pulmonary artery is not well visualized, but is probably normal size. The IVC is of normal diameter and collapses greater than 50% with a sniff. This suggests a low right atrial pressure of 3 mm Hg. Pericardium/ Pleura There is no pericardial effusion. There is an anterior echo-free space consistent with a fat pad. MMode/2D Measurements & Calculations LVIDd: 4.3 cm LVOT diam: 2.0 cm LVIDs: 2.3 cm Ao root diam: 3.7 cm FS: 45.2 % Ao Arch Diam (Prox Trans): 1.9 cm IVSd: 0.81 cm LVPWd: 0.83 cm LV james. diameter/BSA (cm/m^2): 2.1 LV sys. diameter/BSA (cm/m^2): 1.2 LA A2 area: 12.9 cm2 RA long axis: 4.9 cm LA A4 area: 12.4 cm2 RA area: 18.6 cm2 LA length (vol): 4.3 cm RA vol: 60.2 ml LA vol: 31.8 ml RA : 29.8 ml/m2 LA vol index: 15.7 ml/m2 IVC diam: 2.0 cm RVD1 (basal): 3.7 cm TAPSE: 2.3 cm Doppler Measurements & Calculations Ao V2 max: 124.6 cm/sec LVOT Max Cy: 68.8 cm/sec Ao V2 mean: 80.4 cm/sec LV V1 max P.9 mmHg Ao max P.2 mmHg LV V1 VTI: 14.1 cm Ao mean P.0 mmHg FREDA(I,D): 1.6 cm2 Ao V2 VTI: 26.7 cm FREDA(V,D): 1.7 cm2 sev ratio: 0.53 FREDA indexed to BSA (cm^2/m^2): 0.80 MV E max cy: 63.4 cm/sec TR max cy: 249.4 cm/sec MV A max cy: 75.2 cm/sec TR max P.9 mmHg MV E/A: 0.84 PA V2 max: 69.5 cm/sec Med Peak E' Cy: 8.9 cm/sec PA V2 mean: 45.6 cm/sec E/E' med: 7.1 PA mean P.93 mmHg Lat Peak E' Cy: 6.8 cm/sec PA Accel Time: 0.10 sec E/E' lat: 9.3 E/e' average: 8.2 MV P1/2t: 74.3 msec MV P1/2t max cy: 63.9 cm/sec SV(LVOT): 43.3 ml MVA(P1/2t): 3.0 cm2 Reading Physician:03:40 PM
[2022-03-02] MEDS: PROPRANOLOL 10 MG TABLET 20 MG PO (09:48)
[2022-03-02] MEDS: DEXTROSE 5%-0.9% NS 1,000 ML 100 ML IV ×2 (11:37→23:53)
--- NOTE | 2022-03-02 11:52 | CM.DANOTE ---
Initial Discharge Plan Assessment: Case received, EMR reviewed and met with patient in his room. Introduced self and role. 81 year old male admitted yesterday evening to care of hospitalist team. PCP: Dr Abbe Aguirre Payer: [facility] and self pay patient admitted with increased weakness and a syncopal fall in the bathroom yesterday morning. He has had multiple falls recently, including a GLF with a frontal lobe bleed. He has a healing right ankle fracture from a previous fall and is wearing a soft brace. He apparently drinks on weekends, 3 drinks of whiskey each night. His lipase is elevated. On imaging, showing pancreatitis. Thrombocytopenia on admission, essential tremor. Patient lives in [place] with his Margarita polanco. He states he functions independently, not currently driving and spouse assists as needed. P: Patient desires to return home with previous living arrangement. PT/OT evals pending. Patient would benefit from HH PT upon discharge. DCP to continue to follow. [facility] Discharge Planning/Care Management CM Discharge Assessment Start: 03/02/22 11:47 Freq: Status: Active Protocol: Document 03/02/22 11:47 (Rec: 03/02/22 11:51 [id number]) Discharge Planning Assessment Assigned Surgery Scheduler Lily Fajardo RN/DCP Advance Directives? Yes Advance Directives on File No History Provided By Patient,Medical Record Prior Living Arrangements House Household Members spouse Type of transporation used prior to Relies on Others admit Comment Recent ankle fx, not currently driving. Independent with ADL's Yes Is patient alert and oriented? Yes Needs Assistance With Home Chores / Shopping Caregiver for Another No DME Already Rented / Owned FWW / Walker,Other Comment Prefers using his trekking poles to ambulate (vs walker). Comment Possible HH PT upon dc Barriers to Discharge No Discharge Plan Home Transportation Arrangement Spouse will transport via private vehicle. Additional Comment Cont assess for possible HH PT Whiteboard Updated in Patient Room with Yes name and ext. # of Surgery Scheduler Review Status In Process Next Review Type Continued Stay Review
[2022-03-02 12:02] VITALS: BP 138/68; PULSE 68; RESP 16; TEMP 36.9; O2SAT 95
--- NOTE | 2022-03-02 12:20 | P.CONS_ITS ---
History of Present Illness Consult details Date Patient Seen: 03/02/22 Time Patient Seen: 12:21 Chief complaint: GLF Reason for consult: Recurrent pancreatitis. Frequent falls not related. Requesting provider: Jah Reyez Narrative: Patient has had a prior episode of severe pancreatitis due to alcoholism. This seems to be similar episode. He is actually admitted for a ground level fall in his bathroom, and he has had increasing falls which is his main concern. He has no complaints of abdominal pain. Lipase on admission was over 1000. And a slightly resolving. CT scan shows mild edema around the head of the pancreas and a questionable area of a 1.5 cm cyst versus choledochal cyst. Meds Home Medications and Allergies Home Medications Medication Instructions Recorded Confirmed Type MULTIVITAMIN (#MULTIPLE VITAMINS) 1 cap PO Q DAY ##0 03/31/12 03/01/22 History propranolol 20 mg tablet 20 mg PO BID #180 tabs 11/06/21 03/01/22 Rx omeprazole 20 mg capsule,delayed 20 mg PO DAILY #90 caps 02/09/22 03/01/22 Rx release clobetasol 0.05 % scalp solution 1 ml topical BID 03/01/22 03/01/22 History Allergies Allergy/AdvReac Type Severity Reaction Status Date / Time No Known Allergies Allergy Verified 03/01/22 22:35 Review of Systems Review of Systems ROS: Yes All systems reviewed with the patient and are negative except as otherwise documented Exam Vital Signs (past 8 hours): - 03/02/22 05:59 03/02/22 07:45 03/02/22 12:02 Temperature 99.3 F 98.8 F 98.4 F Pulse Rate 95 H 97 H 68 Respiratory Rate 16 16 16 Blood Pressure 149/94 H 156/74 H 138/68 Pulse Oximetry 96 93 95 Oxygen Flow Rate 0 0 0 Oxygen Delivery Method Room Air Oxygen Flow Rate 0 Const General: cooperative and comfortable Nutritional Appearance: average body habitus Orientation: alert, awake and oriented x3 HENMT Head: normocephalic and atraumatic Ears: hearing grossly normal bilaterally Eyes General: appearance normal, both eyes and all related structures Sclera: sclerae normal Neck Neck: normal visual inspection and trachea midline Chest Chest: normal inspection of the chest Resp Effort & Inspection: normal respiratory effort and able to speak in complete sentences Cardio Rate: regular rate Rhythm: regular rhythm GI Inspection: normal to inspection Palpation: soft Other: soft and non tender Skin General: no rashes or lesions noted and atrophy Neuro General: patient alert, patient awake and patient oriented x3 Extrem Other: brace on right ankle Psych Appearance: grossly normal Mental Status: mental status grossly normal Thought Process: normal Judgment: judgment good Objective Labs Result Diagrams: 03/02/22 06:42 03/02/22 06:42 Labs: Laboratory Results - last 24 hr 03/01/22 03/01/22 03/01/22 06:42 06:42 13:18 WBC 4.3 L RBC 3.94 L Hgb 14.1 Hct 41.1 MCV 104.2 H MCH 35.9 H MCHC 34.4 RDW 13.2 Plt Count 78 L Neut % (Auto) 49.0 L Lymph % (Auto) 34.7 Avery % (Auto) 12.5 Eos % (Auto) 2.9 Baso % (Auto) 0.9 Neut # (Auto) 2100 Lymph # (Auto) 1500 [place] # (Auto) 500 Eos # (Auto) 100 Baso # (Auto) 0 Sodium Potassium Chloride Carbon Dioxide BUN Creatinine Estimated GFR BUN/Creatinine Ratio Glucose Calcium Total Bilirubin AST ALT Alkaline Phosphatase Total Protein Albumin Globulin Albumin/Globulin Ratio Triglycerides Cholesterol LDL Cholesterol, Calc HDL Cholesterol Lipase Vitamin B12 Cancelled Folate Cancelled Urine RBC Urine WBC Ur Squamous Epith Cells Urine Bacteria Ur Culture Indicated? Chlamy pneumoniae PCR Adenovirus (PCR) B. pertussis DNA (PCR) B.parapertussis DNA PCR Coronavirus OC43 (PCR) Coronavirus HKU1 (PCR) Coronavirus 229E (PCR) SARS-CoV-2 (PCR) Coronavirus NL63 (PCR) Human Metapneumovir PCR Influenza Type A (PCR) Influenza Type B (PCR) M. pneumoniae (PCR) Parainfluenza 1 (PCR) Parainfluenza 2 (PCR) Parainfluenza 3 (PCR) Parainfluenza 4 (PCR) RSV (PCR) Entero/Rhino (PCR) 03/01/22 03/01/22 03/01/22 13:18 13:18 16:33 WBC RBC Hgb Hct MCV MCH MCHC RDW Plt Count Neut % (Auto) Lymph % (Auto) Avery % (Auto) Eos % (Auto) Baso % (Auto) Neut # (Auto) Lymph # (Auto) Avery # (Auto) Eos # (Auto) Baso # (Auto) Sodium 133 L Potassium 4.1 Chloride 89 L Carbon Dioxide 20 L BUN 13 Creatinine 1.19 Estimated GFR > 60 BUN/Creatinine Ratio 10.9 Glucose 75 L Calcium 9.1 Total Bilirubin 1.2 AST 155 H ALT 101 H Alkaline Phosphatase 64 Total Protein 7.5 Albumin 4.7 Globulin 2.8 Albumin/Globulin Ratio 1.7 Triglycerides Cholesterol LDL Cholesterol, Calc HDL Cholesterol Lipase 1335 H Vitamin B12 Folate Urine RBC None seen Urine WBC None seen Ur Squamous Epith Cells None seen Urine Bacteria None seen Ur Culture Indicated? Cult not indicated Chlamy pneumoniae PCR Adenovirus (PCR) B. pertussis DNA (PCR) B.parapertussis DNA PCR Coronavirus OC43 (PCR) Coronavirus HKU1 (PCR) Coronavirus 229E (PCR) SARS-CoV-2 (PCR) Coronavirus NL63 (PCR) Human Metapneumovir PCR Influenza Type A (PCR) Influenza Type B (PCR) M. pneumoniae (PCR) Parainfluenza 1 (PCR) Parainfluenza 2 (PCR) Parainfluenza 3 (PCR) Parainfluenza 4 (PCR) RSV (PCR) Entero/Rhino (PCR) 03/01/22 03/02/22 03/02/22 18:40 06:42 06:42 WBC 3.8 L RBC 3.51 L Hgb 12.6 L Hct 36.1 L MCV 102.8 H MCH 35.8 H MCHC 34.8 RDW 13.1 Plt Count 63 L Neut % (Auto) 67.5 Lymph % (Auto) 13.4 L D Avery % (Auto) 15.6 H Eos % (Auto) 2.7 Baso % (Auto) 0.8 Neut # (Auto) 2600 Lymph # (Auto) 500 L [place] # (Auto) 600 Eos # (Auto) 100 Baso # (Auto) 0 Sodium 135 L Potassium 3.9 Chloride 95 L Carbon Dioxide 22 BUN 13 Creatinine 0.93 Estimated GFR > 60 BUN/Creatinine Ratio 14.0 Glucose 113 H Calcium 8.5 Total Bilirubin 1.5 H AST 102 H ALT 88 H Alkaline Phosphatase 60 Total Protein 6.6 Albumin 4.0 Globulin 2.6 Albumin/Globulin Ratio 1.5 Triglycerides Cholesterol LDL Cholesterol, Calc HDL Cholesterol Lipase 1170 H Vitamin B12 Folate Urine RBC Urine WBC Ur Squamous Epith Cells Urine Bacteria Ur Culture Indicated? Chlamy pneumoniae PCR Not detected Adenovirus (PCR) Not detected B. pertussis DNA (PCR) Not detected B.parapertussis DNA PCR Not detected Coronavirus OC43 (PCR) Not detected Coronavirus HKU1 (PCR) Not detected Coronavirus 229E (PCR) Not detected SARS-CoV-2 (PCR) Not detected Coronavirus NL63 (PCR) Not detected Human Metapneumovir PCR Not detected Influenza Type A (PCR) Not detected Influenza Type B (PCR) Not detected M. pneumoniae (PCR) Not detected Parainfluenza 1 (PCR) Not detected Parainfluenza 2 (PCR) Not detected Parainfluenza 3 (PCR) Not detected Parainfluenza 4 (PCR) Not detected RSV (PCR) Not detected Entero/Rhino (PCR) Not detected 03/02/22 03/02/22 06:42 06:42 WBC RBC Hgb Hct MCV MCH MCHC RDW Plt Count Neut % (Auto) Lymph % (Auto) Avery % (Auto) Eos % (Auto) Baso % (Auto) Neut # (Auto) Lymph # (Auto) Avery # (Auto) Eos # (Auto) Baso # (Auto) Sodium Potassium Chloride Carbon Dioxide BUN Creatinine Estimated GFR BUN/Creatinine Ratio Glucose Calcium Total Bilirubin AST ALT Alkaline Phosphatase Total Protein Albumin Globulin Albumin/Globulin Ratio Triglycerides 62 Cholesterol 158 LDL Cholesterol, Calc 57 HDL Cholesterol 89 H Lipase Cancelled Vitamin B12 Folate Urine RBC Urine WBC Ur Squamous Epith Cells Urine Bacteria Ur Culture Indicated? Chlamy pneumoniae PCR Adenovirus (PCR) B. pertussis DNA (PCR) B.parapertussis DNA PCR Coronavirus OC43 (PCR) Coronavirus HKU1 (PCR) Coronavirus 229E (PCR) SARS-CoV-2 (PCR) Coronavirus NL63 (PCR) Human Metapneumovir PCR Influenza Type A (PCR) Influenza Type B (PCR) M. pneumoniae (PCR) Parainfluenza 1 (PCR) Parainfluenza 2 (PCR) Parainfluenza 3 (PCR) Parainfluenza 4 (PCR) RSV (PCR) Entero/Rhino (PCR) [facility] Medical History Combined hyperlipidemia Concussion Essential tremor Falls frequently GERD (gastroesophageal reflux disease) Intraparenchymal hemorrhage of brain Surgical History S/P total hip arthroplasty Status post colonoscopy Status post radical cystoprostatectomy Family History Father Prostate cancer Kidney problem Mother Old age Social History household members: spouse Tobacco & Substance Use Smoking Status: Former smoker Tobacco: How many years used: 50 second hand exposure: No alcohol intake: current substance use type: does not use Assessment & Plan Assessment & Plan narrative: Acute pancreatitis with CT scan findings of 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 Thrombocytopenia Plan: out patient follow up with GI for elective EGD. Time Spent With Patient Critical Care time: I spent a total of [] minutes of critical care time on this patient's care today; this time is exclusive of procedural time.
--- NOTE | 2022-03-02 14:02 | OT.IP.EVAL ---
Past Medical History (Last Reviewed 03/02/22 @ 12:23 by Adelaida Costa MD) Combined hyperlipidemia Concussion Essential tremor Falls frequently GERD (gastroesophageal reflux disease) Intraparenchymal hemorrhage of brain Surgical History (Last Reviewed 03/02/22 @ 12:23 by Adelaida Costa MD) S/P total hip arthroplasty Status post colonoscopy Status post radical cystoprostatectomy Occupational Therapy Inpatient Evaluation/Re-Eval M1 PT/OT-IP Prior Functional Status Start: 03/02/22 14:19 Freq: NEEDED Status: Active Protocol: Document 03/02/22 14:19 CGR (Rec: 03/02/22 14:32 CGR [id number]) Medical Review Prior Functional Status Medical History Reviewed Yes Communication Pt is an effective verbal communicator but sometimes does not respond to questions. Mobility and Gait Pt was MOD I to IND at baseline at home but with multiple falls. Pt states that he usually uses his trekking poles as needed. Activities of Daily Living and IADL's Pt was IND in ADLs. Pt's assists as needed. Prior Functional Level (Other details) Pt states he hasn't been driving since he broke his ankle this year. Social History Household Members spouse Living Arrangements House Number of Floors (Floors) One Floor Number of Stairs To Enter/Railing? 2 steps to enter with no railing. 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 Pt has essential tremors at baseline. M2 OT-IP Current Condition Start: 03/02/22 14:19 Freq: Status: Active Protocol: Document 03/02/22 14:19 CGR (Rec: 03/02/22 14:32 CGR [id number]) Occupational Therapy Current Condition Current Condition Evaluation Date 03/02/22 Treatment Diagnosis GLF, pancreatitis Diagnosis Onset Date 03/01/22 M3 OT- IP Subjective and Pain Start: 03/02/22 14:19 Freq: Status: Active Protocol: Document 03/02/22 14:19 CGR (Rec: 03/02/22 14:32 CGR [id number]) OT- Subjective Occupational Therapy Visit Type Type Initial Evaluation Visit Start Time 13:35 Visit Stop Time 14:02 Total Visit Minutes 27 Notes Pt's present throughout Occupational Therapy Visit Comments Patient Comments Pt states he saw an orthopedic on Friday (02/26/22) and the MD told him that his ankle was healing, to continue with the brace, and WBAT. OT Pain Assessment Pain When Pain Assessed At Rest Pain Present Pain Present Denied Pain M4 OT- IP ADL's Start: 03/02/22 14:19 Freq: Status: Active Protocol: Document 03/02/22 14:19 CGR (Rec: 03/02/22 14:32 CGR [id number]) OT [id number] Comments OT Self-Feeding Comments not meal time OT ADL-Grooming General Evaluation Grooming Ability Standby Assistance Areas Needing Assistance Face Washing Comments OT Grooming Comments seated in chair with set up OT ADL-Oral Care General Eval Oral Care Ability Standby Assistance Areas of Assistance Brushing Teeth,Retrieving/Set- Up of Items Comments Oral Care Comments seated in chair with set up OT ADL-Dressing General Eval Lower Body Dressing Ability Total Assistance Areas Needing Assistance Socks OT ADL-Toileting Comments OT Toileting Comments not performed OT ADL-Bathing Comments OT Bathing Comments not performed M5 OT- IP IADL's Start: 03/02/22 14:19 Freq: Status: Active Protocol: Document 03/02/22 14:19 CGR (Rec: 03/02/22 14:32 CGR [id number]) OT-Instrumental Activities of Daily Living Deficits IADL Deficits Identified Deficits Home Safety Awareness Awareness of Need for Assistance at Home Decreased Awareness Ability to Problem Solve Emergency Unable to Problem Solve Situations Medication Management Medication Management Caregiver Administers Money Management Money Management Caregiver Provides Assistance Meal Preparation Meal Preparation Caregiver Provides Assist Landscape Horticulture Instructor Landscape Horticulture Instructor Caregiver Provides Assist Driving Driving Comments Pt does not drive M6 OT- IP Functional Cognition Start: 03/02/22 14:19 Freq: Status: Active Protocol: Document 03/02/22 14:19 CGR (Rec: 03/02/22 14:32 CGR [id number]) Cognitive Factors Limiting Selfcare Function Cognitive Ability Level of Alertness Alert,Confusional State Patient Orientation Name,Birthday,Month,Place Attention Span Ability Capable of Focused Attention, Capable of Sustained Attention Ability to Follow Commands Able to Follow One Step Commands with Increased Time, Able to Follow One Step Commands with Repetition Cognitive Comments Cognitive Assessment Comments Pt was unable to state the date or the year but did know that it was February. Pt would benefit from formal cog assessment. OT- Vision and Hearing OT- Hearing Assessment OT- Hearing Assessment WFL OT- Vision Assessment Visual Acuity Glasses For Reading Visual Attentiveness WFL Occular Pursuits WFL M7 OT- IP Mobility and Balance Start: 03/02/22 14:19 Freq: Status: Active Protocol: Document 03/02/22 14:19 CGR (Rec: 03/02/22 14:32 CGR [id number]) OT- Bed Mobility Assessment Supine to Sit Supine to Sit Assist Minimal Assistance Scooting Scooting to Edge of Bed Minimal Assistance OT-Transfer Assessment Sit to and From Stand Sit to and from Stand Minimal Assistance Transfers Transfer Ability Minimal Assistance Technique Transfer Destination Bed,Chair Transfer Technique Stand Step Pivot Devices Transfer Assistive Devices Gait Belt,Front Wheeled Walker Comments Mobility Comments Pt stood and transferred to chair with apprehensive movements and encouragement. Pt sat in the chair and declined further mobility stating that he was fatigued from the activity. OT- Balance Assessment Sitting Balance and Reactions Static Sitting Balance Ability Fair Dynamic Sitting Balance Ability Fair M8 OT- IP Objective Assessments Start: 03/02/22 14:19 Freq: Status: Active Protocol: Document 03/02/22 14:19 CGR (Rec: 03/02/22 14:32 CGR [id number]) OT Gross Range of Motion Upper Extremity Range of Motion Assessment Within Functional Limits OT Strength Upper Extremity Strength Assessment Within Functional Limits OT- Coordination Assessment Upper Extremity Finger to Nose Test Within Functional Limits Finger Tapping Test Within Functional Limits OT-Muscle Tone Assessment Muscle Tone WNL Yes OT Sensation Assessment Edema Edema Absent M9 OT- IP Assessment and Plan Start: 03/02/22 14:19 Freq: Status: Active Protocol: Document 03/02/22 14:19 CGR (Rec: 03/02/22 14:32 CGR [id number]) OT Summary Assessment and Plan Potential Rehabilitation Potential Good Analytic Complexity at Evaluation Moderate Summary OT Impairments Balance,Coordination, Functional Cognition, Functional Mobility,Grooming, Dressing,Toileting,Bathing, Toilet Transfers,Shower Transfers,Activity Tolerance Progress Towards Goals Slow Progress due to Medical Issues Assessment Summary Pt presents as a low complexity evaluation s/p admit for falls and found to have pancreatitis. Pt currently with brace on R ankle from fx from fall. Pt appears apprehensive with mobility and is easily fatigued at this time. Recommend transfers only for nursing at this time and plan for SNF vs home depending on progress. Pt would benefit from formal cog assessment given he was unable to state the date or year correctly. Goals Self-Feeding Goal Independent Grooming Goal Independent Dressing Goal Independent Toileting Goal Independent Bathing Goal Independent Toilet Transfer Goal Independent Shower Transfer Goal Independent Days to Meet Goals 15 Frequency of Treatment Frequency Of Treatment Once a Day Treatment Plan OT Treatment Plan ADL Training,Functional Cognition Training,Functional Mobility,Patient/Family Education,Discharge Planning Other Treatment Recommendations and Next cog assessment, ADLs standing Treatment Focus vs sitting. Discharge Recommendations OT Discharge Recommendations Home vs SNF Other Discharge Recommendations At this time recommendation is for SNF, Pt may progress for discharge home. Transportation Needs at Discharge Private Vehicle
[2022-03-02 16:00] VITALS: BP 133/71; PULSE 68; RESP 16; TEMP 36.8; O2SAT 95
[2022-03-02 20:00] VITALS: BP 138/70; PULSE 63; RESP 16; TEMP 36.8; O2SAT 96
[2022-03-03] VITALS (9 sets, daily range): BP systolic 110–166; BP diastolic 65–91; PULSE 63–95; RESP 16–18; TEMP 36.2–37.2; O2SAT 94–96
--- NOTE | 2022-03-03 07:24 | DI.US.S_ITS ---
PROCEDURE: US CAROTID DOPPLER BI INDICATIONS: syncope TECHNIQUE: Color and pulse Doppler interrogation was performed of both carotid systems, with image documentation and velocity measurements. COMPARISON: None. FINDINGS: Stenosis calculations are based on SRU (Society of Radiologists in Ultrasound) criteria. Right side: Brachial blood pressure: 151/82 mm Hg. Common carotid artery peak systolic velocity: 77 cm/sec. Internal carotid artery peak systolic velocity: 93 cm/sec. Internal carotid artery end diastolic velocity: 27 cm/sec. External carotid artery peak systolic velocity: 75 cm/sec. ICA/CCA peak systolic ratio: 1.2 . Chaves scale imaging description: Atherosclerotic plaque Percent internal carotid artery stenosis: Less than 50 percent . Vertebral artery: Flow direction is antegrade. Left side: Brachial blood pressure: 138/67 mm Hg. Common carotid artery peak systolic velocity: 88 cm/sec. Internal carotid artery peak systolic velocity: 200 to cm/sec. Internal carotid artery end diastolic velocity: 46 cm/sec. External carotid artery peak systolic velocity: 77 cm/sec. ICA/CCA peak systolic ratio: 2.3 . Chaves scale imaging description: Atherosclerotic plaque Percent internal carotid artery stenosis: Greater than 50 . Vertebral artery: Flow direction is antegrade. IMPRESSION: 1. 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 Consider CT angiogram correlation Approved by: Alberto Rodriguez M.D. on 03/03/2022 at 7:15
[2022-03-03] MEDS: PROPRANOLOL 10 MG TABLET 20 MG PO ×2 (08:44→22:01)
[2022-03-03 08:45] LABS: Lipase 504 U/L (23-300)
[2022-03-03] MEDS: ASPIRIN EC 81 MG TABLET PO (08:45)
[2022-03-03 08:47] LABS: Alanine Aminotransferase 60 IU/L (<50); Albumin 3.8 g/dL (3.5-5.0); Albumin Globulin Ratio 1.5 (1.0-2.8); Alkaline Phosphatase 59 U/L (38-126); Aspartate Aminotransferase 66 IU/L (17-59); BUN Creatinine Ratio 12.9 (6-22); Bilirubin Total 1.8 mg/dL (0.2-1.3); Blood Urea Nitrogen 8 mg/dL (9-20); Calcium 8.7 mg/dL (8.4-10.2); Carbon Dioxide 33 mmol/L (22-32); Chloride 98 mmol/L (98-107); Estimated Glomerular Filt Rate > 60 mL/min (>60); Globulin 2.5 g/dL (1.7-4.1); Glucose 144 mg/dL (80-110); HEMOLYSIS < 15 (0-50); Potassium 3.3 mmol/L (3.4-5.1); Sodium 138 mmol/L (137-145); Total Protein 6.3 g/dL (6.3-8.2)
[2022-03-03 09:01] LABS: Add Manual Diff / Slide Review NO; Basophils Absolute Auto 0 /uL (0-100); Basophils Percent Auto 0.5 % (0-2); Eosinophils Absolute Auto 100 /uL (0-450); Eosinophils Percent Auto 2.7 % (2-4); Hematocrit 37.3 % (41-53); Hemoglobin 12.9 g/dL (13.5-17.5); Lymphocytes Absolute Auto 600 /uL (1100-4500); Lymphocytes Percent Auto 17.3 % (25-40); Mean Corpuscular HGB Conc 34.5 % (30-36); Mean Corpuscular Hemoglobin 35.5 PG (26-34); Mean Corpuscular Volume 102.9 fL (80-100); Monocytes Absolute Auto 600 /uL (0-900); Neutrophils Absolute Auto 2400 /uL (1500-7000); Neutrophils Percent Auto 63.5 % (50-75); Platelet Count 62 X10^3/uL (150-400); Red Blood Cell Count 3.62 X10^6/uL (4.5-5.9); White Blood Cell Count 3.7 X10^3/uL (4.5-11.0)
[2022-03-03] MEDS: DEXTROSE 5%-0.9% NS 1,000 ML 100 ML IV (10:05)
--- NOTE | 2022-03-03 11:05 | CM.DPC ---
Discharge planning note: Patient resting in bed. Voice is quiet, able to answer questions. OT eval done yesterday, at baseline, awaiting PT eval. Spouse Margarita to be in today. Surgical consult done, pancreatitis. P: Home vs SNF. DCP to follow. Lily Fajardo RN/DCP
--- NOTE | 2022-03-03 11:38 | PT.IIE ---
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 (03/01/22) Surgical History (Last Reviewed 03/02/22 @ 12:23 by Adelaida Costa MD) S/P total hip arthroplasty Status post colonoscopy Status post radical cystoprostatectomy Medical History (Last Reviewed 03/02/22 @ 12:23 by Adelaida Costa MD) Combined hyperlipidemia Concussion Essential tremor Falls frequently GERD (gastroesophageal reflux disease) Intraparenchymal hemorrhage of brain Physical Therapy Inpatient Evaluation/Re-Eval M1 PT/OT-IP Prior Functional Status Start: 03/02/22 14:19 Freq: NEEDED Status: Active Protocol: Document 03/03/22 11:38 AW (Rec: 03/03/22 13:16 AW [id number]) Medical Review Prior Functional Status Medical History Reviewed Yes Communication Pt is an effective verbal communicator but sometimes does not respond to questions. Mobility and Gait Pt was MOD I to IND at baseline at home but with multiple falls. Pt states that he usually uses his trekking poles as needed. He sustained a R ankle fracture 5-6 weeks ago. Per ortho, fracture is healing as expected; pt can mobilize WBAT with soft lace up brace on the right ankle. Activities of Daily Living and IADL's Pt was IND in ADLs. Pt's assists as needed. Prior Functional Level (Other details) Pt states he hasn't been driving since he broke his ankle this year. Social History Household Members spouse Living Arrangements House Number of Floors (Floors) One Floor Number of Stairs To Enter/Railing? 2 steps to enter with no railing. 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 Pt has essential tremors at baseline. M2 PT-IP Current Condition Start: 03/03/22 08:08 Freq: NEEDED Status: Active Protocol: Document 03/03/22 11:38 AW (Rec: 03/03/22 13:16 AW [id number]) Physical Therapy Current Condition Current Condition Evaluation Date 03/03/22 Treatment Diagnosis recurrent falls; acute pancreatitis Onset Date 03/01/22 M3 PT-IP Subjective Start: 03/03/22 08:08 Freq: NEEDED Status: Active Protocol: Document 03/03/22 11:38 AW (Rec: 03/03/22 13:16 AW [id number]) Subjective Physical Therapy Visit Type Type Initial Evaluation Visit Start Time 11:08 Visit Stop Time 11:38 Total Visit Minutes 30 Physical Therapy Visit Comments Patient Comments Pt is willing to participate with PT Therapy Pain Assessment Pain When Pain Assessed During Mobility Pain Present Pain Present Denied Pain M4 PT-IP Mobility and Gait Start: 03/03/22 08:08 Freq: NEEDED Status: Active Protocol: Document 03/03/22 11:38 AW (Rec: 03/03/22 13:16 AW [id number]) PT-Bed Mobility Assessment Supine to Sit Supine to Sit Minimal Assistance,1 Person Assistance Sit to Supine Sit to Supine Minimal Assistance,1 Person Assistance PT-Transfer Assessment Sit to and From Stand Sit to and from Stand Minimal Assistance,1 Person Assistance,Use of Upper Extremities Equipment Transfer Assistive Device Gait Belt,Front Wheeled Walker Orthotic/Prosthetic Devices or Brace: Yes Transfers Transfer Destination Chair Transfer Technique Stand Step Pivot Transfer Ability Level of Assist 1 Person Assistance,Use of Upper Extremities Comments Mobility Comments Pt was lying in bed as PT arrived. BP 142/82 HR 63 in supine. Pt needed min A to complete supine to sit. After one minute, BP was 134/83 HR 73. Pt denied symptoms. He stood and BP was 110/65 after one minute. Min A to stand and transfer to chair using FWW. Steps were inconsistent and pt needed cues to step into the walker and keep feet lined up inside the frame. Pt agreed to attempt gait, standing min A and walking toward the sink with FWW min A and cues for safety, feet inside walker frame. Pt felt faint and requested return to bed. Min A to return to supine. BP after a minute was 128/64 HR 70. Pt was left with call light at hand and bed alarm on. Gait Assessment Gait Gait Assistance Required: Minimum Assistance,1 Person Assist Distance (Feet) 10 Able to Maintain Weight Bearing Status Yes During Gait Assistive Devices Assistive Device Gait Belt,Front Wheeled Walker Orthotic/Prosthetic Devices or Brace: Yes Gait Deviations General Gait Pattern Decreased Stride Length, Decreased Feet Clearance, Flexed Trunk Factors Limiting Gait Function Factors Limiting Gait Function Decreased Strength,Limited Range of Motion,Poor Balance, Poor Safety Awareness Comments Gait Comments See mobility comments for details. Stair Climbing Assessment Comments Stair Climbing Comments Not assessed. PT-Balance Assessment Sitting Balance and Reactions Static Sitting Balance Ability Good Dynamic Sitting Balance Ability Good Standing Balance and Reactions Static Standing Balance Ability Fair Dynamic Standing Balance Ability Fair Device Used FWW M5 PT-IP Objective Assessments Start: 03/03/22 08:08 Freq: NEEDED Status: Active Protocol: Document 03/03/22 11:38 AW (Rec: 03/03/22 13:16 AW [id number]) Orientation Orientation/Cognition Level of Alertness Alert Orientation Name,Month,Place,Situation Safety Awareness Decreased Safety Awareness Gross Range of Motion Lower Extremity ROM Assessment Right Impaired Impairments R ankle lacks dorsiflexion Strength Lower Extremity Strength Assessment Bilaterally Impaired Hip 4-/5 Knee 4/5 Ankle R 3-/5; L 4-/5 Sensation Assessment Sensation Gross Sensation WNL M6 PT-IP Treatment Start: 03/03/22 08:08 Freq: NEEDED Status: Active Protocol: Document 03/03/22 11:38 AW (Rec: 03/03/22 13:16 AW [id number]) Physical Therapy Treatment Education Education Provided Safety M7 PT-IP Assessment and Plan Start: 03/03/22 08:08 Freq: NEEDED Status: Active Protocol: Document 03/03/22 11:38 AW (Rec: 03/03/22 13:16 AW [id number]) PT Summary Assessment and Plan Potential Rehabilitation Potential Good Status of Condition at Evaluation Evolving Summary Impairments ROM,Strength,Balance,Bed Mobility,Transfers,Gait, Activity Tolerance Assessment Summary Ac is an 81 yo man admitted with acute pancreatitis. He has history of multiple falls. He fractured his right ankle ~6 weeks ago. He fell in January and had parenchymal hemorrhage. He has had syncopal events recently. He is independent to modified independent at baseline with use of trekking poles. On assessment, he required min assist with all mobilties using FWW. Given his history of recurrent injurious falls, presentation with weakness and poor activity tolerance, pt would benefit from SNF rehab to improve strength and mobility independence. Will continue to assess for safe discharge plan but at this time PT recommends SNF. Goals Bed Mobility Goal Independent Transfer Goal Independent,Front Wheeled Walker Gait Goal Standby Assistance,Front Wheel Walker Gait Distance 200 Other Goals - up/down 2 steps no rail SBA Days to Meet Goals 10 Frequency of Treatment Frequency Of Treatment Once a Day Treatment Plan Physical Therapy Treatment Plan Bed Mobility Training,Transfer Training,Gait Training, Therapeutic Exercise,Balance Retraining,Discharge Planning, Hot or Cold Pack Other Recommendations and Next Treatment progress transfers and gait Focus with FWW as tolerated. ther ex for BLE strength Precautions Other Precautions recurrent falls Weight Bearing Status Weight Bearing Status Weight Bear as Tolerated Allowed Weight Bearing Amount (enter % WBAT RLE or #) (%) Recommendations To Nursing Amount of Assist Needed 1 Person Assist Discharge Recommendations PT Discharge Recommendations Home with 07/04 Assist Available,Home Health,SNF Rehab,Home vs SNF Transportation Needs at Discharge Private Vehicle,Wheelchair/ Cabulance
--- NOTE | 2022-03-03 11:48 | P.PN_ITS ---
Subjective Subjective Interval history: pt is awake, alert, denies abdominal pain, nausea, vomiting Exam Vital Signs (past 8 hours): - 03/03/22 06:00 03/03/22 09:03 03/03/22 07:00 Temperature 98.2 F 97.1 F L Pulse Rate 71 70 Respiratory Rate 18 16 Blood Pressure 148/72 H 138/67 Pulse Oximetry 96 96 Oxygen Delivery Method Room Air Oxygen Flow Rate 0 0 Oxygen Delivery Method Room Air Oxygen Flow Rate 0 Const General: cooperative and comfortable Nutritional Appearance: average body habitus Orientation: alert, awake and oriented x3 HENMT Head: normocephalic and atraumatic Ears: hearing grossly normal bilaterally Eyes General: appearance normal, both eyes and all related structures Sclera: sclerae normal Neck Neck: normal visual inspection and trachea midline Chest Chest: normal inspection of the chest Resp Effort & Inspection: normal respiratory effort and able to speak in complete sentences Cardio Rate: regular rate Rhythm: regular rhythm GI Inspection: normal to inspection Palpation: soft Other: soft and non tender Skin General: no rashes or lesions noted and atrophy Neuro General: patient alert, patient awake and patient oriented x3 Extrem Other: brace on right ankle Psych Appearance: grossly normal Mental Status: mental status grossly normal Thought Process: normal Judgment: judgment good Objective Labs Result Diagrams: 03/03/22 08:15 03/03/22 08:15 Labs: Laboratory Results - last 24 hr 03/03/22 03/03/22 03/03/22 08:15 08:15 08:15 WBC 3.7 L RBC 3.62 L Hgb 12.9 L Hct 37.3 L MCV 102.9 H MCH 35.5 H MCHC 34.5 RDW 13.0 Plt Count 62 L Neut % (Auto) 63.5 Lymph % (Auto) 17.3 L [place] % (Auto) 16.0 H Eos % (Auto) 2.7 Baso % (Auto) 0.5 Neut # (Auto) 2400 Lymph # (Auto) 600 L [place] # (Auto) 600 Eos # (Auto) 100 Baso # (Auto) 0 Sodium 138 Potassium 3.3 L Chloride 98 Carbon Dioxide 33 H BUN 8 L Creatinine 0.62 L Estimated GFR > 60 BUN/Creatinine Ratio 12.9 Glucose 144 H Calcium 8.7 Total Bilirubin 1.8 H AST 66 H ALT 60 H Alkaline Phosphatase 59 Total Protein 6.3 Albumin 3.8 Globulin 2.5 Albumin/Globulin Ratio 1.5 Lipase 504 H D PFSH Medical History Combined hyperlipidemia Concussion Essential tremor Falls frequently GERD (gastroesophageal reflux disease) Intraparenchymal hemorrhage of brain Surgical History S/P total hip arthroplasty Status post colonoscopy Status post radical cystoprostatectomy Family History Father Prostate cancer Kidney problem Mother Old age Social History household members: spouse Smoking Status: Former smoker Tobacco: How many years used: 50 second hand exposure: No alcohol intake: current substance use type: does not use Assessment & Plan Assessment & Plan narrative: [address] [address] Progress Note Patient: Carlos Jansen MR#: [id number] : 1940 Acct:[id number] Age/Sex: 81 / M ? Date of Service: 03/01/22 Provider:?Jacki Evans Subjective Subjective Interval history: pt is awake, alert, oriented, has no new complaints, denies chest pain or shortness of breath, nausea, vomiting Exam Vital Signs (past 8 hours): - ? 03/02/22 05:59 03/02/22 07:45 Temperature 99.3 F 98.8 F Pulse Rate 95 H 97 H Respiratory Rate 16 16 Blood Pressure 149/94 H 156/74 H Pulse Oximetry 96 93 Oxygen Flow Rate 0 0 Oxygen Delivery Method? Room Air? Oxygen Flow Rate? 0 ? Const General: cooperative and well developed Orientation: alert, awake and oriented x3 HENMT Head: normal to inspection Ears: external ears normal Mouth: oral mucosae normal Eyes Pupils: PERRL EOM: EOM intact bilaterally Neck Neck: normal visual inspection and full ROM Resp Effort & Inspection: normal respiratory effort Auscultation: clear to auscultation bilaterally Cardio Rate: regular rate Rhythm: regular rhythm GI Palpation: soft and no hepatosplenomegaly Auscultation: normal bowel sounds Skin General: no rashes or lesions noted Neuro General: patient alert, patient awake, patient oriented x3, moves all extremities and no focal motor deficits Speech: speech normal Extrem General: normal to inspection, full ROM and no pedal edema Psych Appearance: grossly normal Objective Labs Result Diagrams: 03/02/22 06:42? 03/02/22 06:42? Labs: Laboratory Results - last 24 hr ? 03/01/22 03/01/22 03/01/22 ? 06:42 06:42 13:18 WBC ? ? ?4.3 L RBC ? ? ?3.94 L Hgb ? ? ?14.1 Hct ? ? ?41.1 MCV ? ? ?104.2 H MCH ? ? ?35.9 H MCHC ? ? ?34.4 RDW ? ? ?13.2 Plt Count ? ? ?78 L Neut % (Auto) ? ? ?49.0 L Lymph % (Auto) ? ? ?34.7 Cost[place] % (Auto) ? ? ?12.5 Eos % (Auto) ? ? ?2.9 Baso % (Auto) ? ? ?0.9 Neut # (Auto) ? ? ?2100 Lymph # (Auto) ? ? ?1500 [place] # (Auto) ? ? ?500 Eos # (Auto) ? ? ?100 Baso # (Auto) ? ? ?0 Sodium ? ? ? Potassium ? ? ? Chloride ? ? ? Carbon Dioxide ? ? ? BUN ? ? ? Creatinine ? ? ? Estimated GFR ? ? ? BUN/Creatinine Ratio ? ? ? Glucose ? ? ? Calcium ? ? ? Total Bilirubin ? ? ? AST ? ? ? ALT ? ? ? Alkaline Phosphatase ? ? ? Total Protein ? ? ? Albumin ? ? ? Globulin ? ? ? Albumin/Globulin Ratio ? ? ? Triglycerides ? ? ? Cholesterol ? ? ? LDL Cholesterol, Calc ? ? ? HDL Cholesterol ? ? ? Lipase ? ? ? Vitamin B12 ?Cancelled ? ? Folate ? ?Cancelled ? Urine RBC ? ? ? Urine WBC ? ? ? Ur Squamous Epith Cells ? ? ? Urine Bacteria ? ? ? Ur Culture Indicated? Chlamy pneumoniae PCR ? ? ? Adenovirus (PCR) ? ? ? B. pertussis DNA (PCR) ? ? ? B.parapertussis DNA PCR ? ? ? Coronavirus OC43 (PCR) ? ? ? Coronavirus HKU1 (PCR) ? ? ? Coronavirus 229E (PCR) ? ? ? SARS-CoV-2 (PCR) ? ? ? Coronavirus NL63 (PCR) ?B ? ? Human Metapneumovir PCR ? ? ? Influenza Type A (PCR) ? ? ? Influenza Type B (PCR) ? ? ? D M. pneumoniae (PCR) ? ? ? Parainfluenza 1 (PCR) ? ? ? Parainfluenza 2 (PCR) ? ? ? Parainfluenza 3 (PCR) ? ? ? Parainfluenza 4 (PCR) ? ? ? RSV (PCR) ? ? ? Entero/Rhino (PCR) ? 03/01/22 03/01/22 03/01/22 ? 13:18 13:18 16:33 WBC ? ? ? RBC ? ?C ? Hgb ? ? ? Hct ? ? ? MCV ? ? ? MCH ? ? ? MCHC ? ? ? RDW ? ? ? Plt Count ? ? ? Neut % (Auto) ? ? ? Lymph % (Auto) ? ? ? Cost[place] % (Auto) ? ? ? Eos % (Auto) ? ? ? Baso % (Auto) ? ? ? Neut # (Auto) ? ? ? Lymph # (Auto) ? ? ? D [place] # (Auto) ? ? ? Eos # (Auto) ? ? ? Baso # (Auto) ? ? ? Sodium ?133 L ? ? Potassium ?4.1 ? ? Chloride ?89 L ? ? Carbon Dioxide ?20 L ? ? BUN ?13 ? ? Creatinine ?1.19 ? ? Estimated GFR ?> 60 ? ? BUN/Creatinine Ratio ?10.9 ? ? Glucose ?75 L ? ? Calcium ?9.1 ? ? Total Bilirubin ?1.2 ? ? AST ?155 H ? ? ALT ?101 H ? ? Alkaline Phosphatase ?64 ? ? Total Protein ?7.5 ? ? Albumin ?4.7 ? ? Globulin ?2.8 ? ? Albumin/Globulin Ratio ?1.7 ? ? Triglycerides ? ? ? Cholesterol ? ? ? LDL Cholesterol, Calc ? ? ? HDL Cholesterol ? ? ? Lipase ? ?1335 H ? Vitamin B12 ? ? ? Folate ? ? ? Urine RBC ? ? ?None seen Urine WBC ? ? ?None seen Ur Squamous Epith Cells ? ? ?None seen Urine Bacteria ? ? ?None seen Ur Culture Indicated?Cult not indicated Chlamy pneumoniae PCR ? ? ? Adenovirus (PCR) ? ? ? B. pertussis DNA (PCR) ? ? ? B.parapertussis DNA PCR ? ? ? Coronavirus OC43 (PCR) ? ? ? Coronavirus HKU1 (PCR) ? ? ? Coronavirus 229E (PCR) ? ? ? SARS-CoV-2 (PCR) ? ? ? Coronavirus NL63 (PCR) ? ? ? Human Metapneumovir PCR ? ? ? Influenza Type A (PCR) ? ? ? Influenza Type B (PCR) ? ? ? M. pneumoniae (PCR) ? ? ? Parainfluenza 1 (PCR) ? ? ? Parainfluenza 2 (PCR) ? ? ? Parainfluenza 3 (PCR) ? ? ? Parainfluenza 4 (PCR) ? ? ? RSV (PCR) ? ? ? Entero/Rhino (PCR) ? 03/01/22 03/02/22 03/02/22 ? 18:40 06:42 06:42 WBC ? ?3.8 L ? RBC ? ?3.51 L ? Hgb ? ?12.6 L ? Hct ? ?36.1 L ? MCV ? ?102.8 H ? MCH ? ?35.8 H ? MCHC ? ?34.8 ? RDW ?B ?13.1 ? Plt Count ? ?63 L ? Neut % (Auto) ? ?67.5 ? Lymph % (Auto) ? ?13.4 L D ? Cost[place] % (Auto) ? ?15.6 H ? Eos % (Auto) ? ?2.7 ? Baso % (Auto) ? ?0.8 ? Neut # (Auto) ? ?2600 ? Lymph # (Auto) ? ?500 L ? [place] # (Auto) ? ?600 ? Eos # (Auto) ? ?100 ? Baso # (Auto) ? ?0 ? Sodium ? ? ?135 L D Potassium ? ? ?3.9 Chloride ? ? ?95 L Carbon Dioxide ? ? ?22 BUN ? ? ?13 Creatinine ? ? ?0.93 Estimated GFR ? ?B ?> 60 BUN/Creatinine Ratio ? ? ?14.0 Glucose ? ? ?113 H Calcium ? ? ?8.5 Total Bilirubin ? ? ?1.5 H AST ? ? ?102 H ALT ? ? ?88 H Alkaline Phosphatase ? ? ?60 Total Protein ? ? ?6.6 Albumin ? ? ?4.0 Globulin ? ? ?2.6 Albumin/Globulin Ratio ? ? ?1.5 Triglycerides ? ? ? Cholesterol ? ? ? LDL Cholesterol, Calc ? ? ? HDL Cholesterol ? ? ? Lipase ? ? ?1170 H Vitamin B12 ? ? ? Folate ? ? ? Urine RBC ? ? ? Urine WBC ? ? ? Ur Squamous Epith Cells ? ? ? Urine Bacteria ? ? ? Ur Culture Indicated? Chlamy pneumoniae PCR ?Not detected ? ? Adenovirus (PCR) ?Not detected ? ? B. pertussis DNA (PCR) ?Not detected ? ? B.parapertussis DNA PCR ?Not detected ? ? Coronavirus OC43 (PCR) ?Not detected ? ? Coronavirus HKU1 (PCR) ?Not detected ? ? Coronavirus 229E (PCR) ?Not detected ? ? SARS-CoV-2 (PCR) ?Not detected ? ? Coronavirus NL63 (PCR) ?Not detected ? ? Human Metapneumovir PCR ?Not detectedB ? ? Influenza Type A (PCR) ?Not detected ? ? Influenza Type B (PCR) ?Not detected ? ? M. pneumoniae (PCR) ?Not detected ? ? Parainfluenza 1 (PCR) ?Not detected ? ? Parainfluenza 2 (PCR) ?Not detected ? ? Parainfluenza 3 (PCR) ?Not detected ? ? Parainfluenza 4 (PCR) ?Not detected ? ? RSV (PCR) ?Not detected ? ? Entero/Rhino (PCR) ?Not detected ? ? ? 03/02/22 03/02/22 ? 06:42 06:42 WBC ? ? RBC ? ? Hgb ? ? Hct ? ? MCV ? ? MCH ? ? MCHC ? ? RDW ? ? Plt Count ? ? Neut % (Auto) ? ? Lymph % (Auto) ? ? [place] % (Auto) ? ? Eos % (Auto) ? ? Baso % (Auto) ? ? Neut # (Auto) ? ? Lymph # (Auto) ? ? [place] # (Auto) ? ? Eos # (Auto) ? ? Baso # (Auto) ? ? Sodium ? ? Potassium ? ? Chloride ? ? Carbon Dioxide ? ? BUN ? ? Creatinine ? ? Estimated GFR ? ? BUN/Creatinine Ratio ? ? Glucose ? ? Calcium ? ? Total Bilirubin ? ? AST ? ? ALT ? ? Alkaline Phosphatase ? ? Total Protein ? ? Albumin ? ? Globulin ? ? Albumin/Globulin Ratio ? ? Triglycerides ?62 ? Cholesterol ?158 ? LDL Cholesterol, Calc ?57 ? HDL Cholesterol ?89 H ? Lipase ? ?Cancelled Vitamin B12 ? ? Folate ? ? Urine RBC ? ? Urine WBC ? ? Ur Squamous Epith Cells ? ? Urine Bacteria ? ? Ur Culture Indicated? ? ? Chlamy pneumoniae PCR ? ? Adenovirus (PCR) ? ? B. pertussis DNA (PCR) ? ? B.parapertussis DNA PCR ? ? Coronavirus OC43 (PCR) ? ? Coronavirus HKU1 (PCR) ? ? Coronavirus 229E (PCR) ? ? SARS-CoV-2 (PCR) ? ? Coronavirus NL63 (PCR) ? ? Human Metapneumovir PCR ? ? Influenza Type A (PCR) ? ? Influenza Type B (PCR) ? ? M. pneumoniae (PCR) ? ? Parainfluenza 1 (PCR) ? ? Parainfluenza 2 (PCR) ? ? Parainfluenza 3 (PCR) ? ? Parainfluenza 4 (PCR) ? ? RSV (PCR) ? ? Entero/Rhino (PCR) ? ? PFSH Medical History?(Updated 03/01/22 @ 22:41 by Jah Reyez MD) Combined hyperlipidemia Concussion Essential tremor Falls frequently GERD (gastroesophageal reflux disease) Intraparenchymal hemorrhage of brain Surgical History? S/P total hip arthroplasty Status post colonoscopy Status post radical cystoprostatectomy Family History?(Updated 03/01/22 @ 22:42 by Jah Reyez MD) Father?? Prostate cancer Kidney problemMother Old age Social History? household members:? spouse Smoking Status:? Former smoker Tobacco: How many years used:? 50 second hand exposure:? No alcohol intake:? current substance use type:? does not use Assessment & Plan Assessment & Plan narrative: Acute pancreatitis -lipase is trending down -tolerated clears diet -advance to full liquid -continue IVF Syncope likely vasovagal -US doppler with 50-69% stenosis -CT angio head and neck will be ordered -ECHO is pending ? 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 Chronic.? -continue bracing and outpatient f/u Right frontal intraparenchymal bleed? Chronic/Unchanged.? -close monitoring Alcohol abuse 3 glassess of Visky weekly -continue CIWA -counseled to stop?alcohol abuse DVT prophylaxis; SCD, ambulation Time Spent With Patient Critical Care time: I spent a total of [] minutes of critical care time on this patient's care today; this time is exclusive of procedural time. Quality VTE Deep Vein Thrombosis/Pulmonary Embolism Present on Admission: No
--- NOTE | 2022-03-03 11:53 | DI.CT.S_ITS ---
PROCEDURE: CT ANGIO HEAD AND NECK INDICATIONS: carotid stenosis TECHNIQUE: Pre-contrast 4.5 mm thick sections acquired from the foramen magnum to the vertex. After the administration of intravenous contrast, 1 mm thick sections acquired from the aortic arch through the [place] of [place]. Post-contrast 4.5 mm thick sections then re-acquired from the foramen magnum to the vertex. For radiation dose reduction, the following was used: automated exposure control, adjustment of mA and/or kV according to patient size. COMPARISON: [facility], CT, CT HEAD/BRAIN WO CON, 01/24/2022, 16:26. [facility], CT, CT HEAD/BRAIN WO CON, 03/01/2022, 14:23. [facility], US, US CAROTID DOPPLER BI, 03/03/2022, 7:38. FINDINGS: Image quality: Excellent. BRAIN: CSF spaces: Ventricles are normal in size and shape. Basal cisterns are patent. No extra-axial fluid collections. Brain: Moderate atrophy and multifocal white matter chronic ischemic change. Right frontal 4 mm subcortical hyperdensity remains entirely unchanged from 01/24/2022. Post-contrast images shows and associated blush of enhancement and a prominent transcortical vein draining to the superficial system. No evidence of acute hemorrhage, mass effect or midline shift. Skull and face: Calvarium and facial bones appear intact, without suspicious lesions. Orbits appear normal. Sinuses: Sinuses and mastoids are clear. HEAD CT ANGIOGRAPHY: Anterior circulation: Intracranial internal carotid arteries are normal in size and flow. The flow within the paired anterior cerebral arteries is normal and symmetric. The flow within the middle cerebral arteries is normal and symmetric. The anterior communicating artery is seen. No aneurysms are seen. Posterior circulation: Visualized portions of the vertebral arteries demonstrate normal caliber, and join to form a normal appearing basilar artery. Flow within the posterior cerebral arteries is normal and symmetric. No aneurysms are seen. NECK CT ANGIOGRAPHY: Carotid system: The great vessels demonstrate a conventional anatomy as they arise from the aortic arch. The origins of the common carotid arteries appear patent. The common carotid arteries demonstrate normal caliber and courses. Calcified and noncalcified atherosclerotic plaque present in both proximal internal carotid arteries. There is a 60 percent stenosis on the left and no hemodynamically significant stenosis on the right utilizing NASCET criteria. Posterior circulation: The origins of the vertebral arteries both appear widely patent. The more superior extracranial portions of both vertebral arteries also demonstrate normal courses and calibers. They join to form a normal appearing basilar artery. Soft tissues: Visualized neck soft tissues demonstrate no suspicious abnormalities. Bones: No suspicious bony lesions. Visualized cervical spine appears normally aligned. IMPRESSION: 1. Atherosclerotic plaque in both proximal internal carotid arteries results in 60 percent stenosis on the left and no hemodynamically significant stenosis on the right utilizing NASCET criteria. 2. 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 No evidence of large vessel occlusion, aneurysm or acute intracranial hemorrhage. Any quantitative measurements of proximal ICA stenosis were performed using NASCET criteria. Approved by: Alberto Rodriguez M.D. on 03/03/2022 at 13:09
[2022-03-03] MEDS: POTASSIUM CHLORIDE 20 MEQ/15 ML UDC 40 MEQ PO (12:29)
[2022-03-03 16:50] LABS: Folate > 20.0 ng/mL (2.76-20.0); Vitamin B12 571 pg/mL (239-931)
--- NOTE | 2022-03-03 18:35 | PC.NURSE ---
Pt is AxOx4, needs 2 person assistance to the chair. Pt seems very weak and can't stand on his feet long time. VSS, pt denies pain. Pt is advanced to full liquid diet and pt is tolerating well. Lipase is trending down 504. Pt had Head/Neck CT and US Carotid Artery doppler study done. Atherosclerotic stenosis 60 % on L and R is non significant stenosis. Otherwise, pt is stable. Urinating jaime color urine. No BM today. Continue monitor.
[2022-03-03] MEDS: SODIUM CHLORIDE 0.9% FLUSH 10 ML IV (22:10)
--- NOTE | 2022-03-03 23:05 | PC.NURSE ---
Pt had a clear emesis episode tonight after dinner, no pain or further nausea/emesis noted. pt has history of essential tremors but this nurse noticed tonight that his tremors are worsening. pt denied any headache or anxiety at the moment. Will continue to monitor.
[2022-03-04 04:00] VITALS: BP 148/87; PULSE 72; RESP 18; TEMP 36.8; O2SAT 95
[2022-03-04 08:00] VITALS: BP 178/80; PULSE 79; RESP 16; TEMP 36.9; O2SAT 95
[2022-03-04] MEDS: ASPIRIN EC 81 MG TABLET PO (08:23)
[2022-03-04] MEDS: PROPRANOLOL 10 MG TABLET 20 MG PO ×2 (08:23→21:07)
[2022-03-04 10:24] LABS: Lipase 314 U/L (23-300)
--- NOTE | 2022-03-04 13:04 | OT.IP.TRT ---
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 (03/01/22) Occupational Therapy Treatment Note M2 OT-IP Current Condition Start: 03/02/22 14:19 Freq: Status: Active Protocol: Document 03/02/22 14:19 CGR (Rec: 03/02/22 14:32 CGR [id number]) Occupational Therapy Current Condition Current Condition Evaluation Date 03/02/22 Treatment Diagnosis GLF, pancreatitis Diagnosis Onset Date 03/01/22 M3 OT- IP Subjective and Pain Start: 03/02/22 14:19 Freq: Status: Active Protocol: Document 03/04/22 13:05 CGR (Rec: 03/04/22 13:15 CGR [id number]) OT- Subjective Occupational Therapy Visit Type Type Progress Note Visit Start Time 12:41 Visit Stop Time 13:04 Total Visit Minutes 23 Notes Pt agreeable to OT services. OT Pain Assessment Pain When Pain Assessed At Rest Pain Present Pain Present Denied Pain M4 OT- IP ADL's Start: 03/02/22 14:19 Freq: Status: Active Protocol: Document 03/04/22 13:05 CGR (Rec: 03/04/22 13:15 CGR [id number]) OT [id number] Comments OT Self-Feeding Comments Not meal time OT ADL-Grooming General Evaluation Grooming Ability Standby Assistance Areas Needing Assistance Combing/Brushing Hair,Face Washing Comments OT Grooming Comments seated in chair at sink OT ADL-Oral Care Comments Oral Care Comments pt declined, states he performed this am OT ADL-Dressing General Eval Upper Body Dressing Ability Minimal Assistance Lower Body Dressing Ability Moderate Assistance Areas Needing Assistance Shoes Comments OT Dressing Comments slip on shoes seated at bedside and min a for hospital gown. OT ADL-Toileting General Evaluation Toileting Ability Total Assistance Areas Needing Assistance Manage Clothing Comments OT Toileting Comments Pt found soilded in bed. Gown and bedding was wet. Removed brief with total a. OT ADL-Bathing Comments OT Bathing Comments not performed M5 OT- IP IADL's Start: 03/02/22 14:19 Freq: Status: Active Protocol: Document 03/02/22 14:19 CGR (Rec: 03/02/22 14:32 CGR [id number]) OT-Instrumental Activities of Daily Living Deficits IADL Deficits Identified Deficits Home Safety Awareness Awareness of Need for Assistance at Home Decreased Awareness Ability to Problem Solve Emergency Unable to Problem Solve Situations Medication Management Medication Management Caregiver Administers Money Management Money Management Caregiver Provides Assistance Meal Preparation Meal Preparation Caregiver Provides Assist Stock Puller Stock Puller Caregiver Provides Assist Driving Driving Comments Pt does not drive M6 OT- IP Functional Cognition Start: 03/02/22 14:19 Freq: Status: Active Protocol: Document 03/02/22 14:19 CGR (Rec: 03/02/22 14:32 CGR [id number]) Cognitive Factors Limiting Selfcare Function Cognitive Ability Level of Alertness Alert,Confusional State Patient Orientation Name,Birthday,Month,Place Attention Span Ability Capable of Focused Attention, Capable of Sustained Attention Ability to Follow Commands Able to Follow One Step Commands with Increased Time, Able to Follow One Step Commands with Repetition Cognitive Comments Cognitive Assessment Comments Pt was unable to state the date or the year but did know that it was February. Pt would benefit from formal cog assessment. OT- Vision and Hearing OT- Hearing Assessment OT- Hearing Assessment WFL OT- Vision Assessment Visual Acuity Glasses For Reading Visual Attentiveness WFL Occular Pursuits WFL M7 OT- IP Mobility and Balance Start: 03/02/22 14:19 Freq: Status: Active Protocol: Document 03/04/22 13:05 CGR (Rec: 03/04/22 13:15 CGR [id number]) OT- Bed Mobility Assessment Supine to Sit Supine to Sit Assist Minimal Assistance,1 Person Assistance,Head of Bed Elevated,Bedrails Scooting Scooting to Edge of Bed Minimal Assistance,1 Person Assistance,Head of Bed Elevated,Bedrails OT-Transfer Assessment Sit to and From Stand Sit to and from Stand Minimal Assistance Transfers Transfer Ability Minimal Assistance Technique Transfer Destination Bed,Chair Transfer Technique Stand Step Pivot Devices Transfer Assistive Devices Gait Belt,Front Wheeled Walker Comments Mobility Comments Pt ambulated ~4-5 feet from EOB to sink then asked to sit. Pt then sat in recliner for ADls at sink and rolled back to bedside. Pt left sitting up in chair at end of session, call button within reach and all needs at time met. Chair fall alarm armed. OT- Balance Assessment Sitting Balance and Reactions Static Sitting Balance Ability Good Dynamic Sitting Balance Ability Fair M8 OT- IP Objective Assessments Start: 03/02/22 14:19 Freq: Status: Active Protocol: Document 06/18/22 14:19 CGR (Rec: 03/02/22 14:32 CGR [id number]) OT Gross Range of Motion Upper Extremity Range of Motion Assessment Within Functional Limits OT Strength Upper Extremity Strength Assessment Within Functional Limits OT- Coordination Assessment Upper Extremity Finger to Nose Test Within Functional Limits Finger Tapping Test Within Functional Limits OT-Muscle Tone Assessment Muscle Tone WNL Yes OT Sensation Assessment Edema Edema Absent M9 OT- IP Assessment and Plan Start: 03/02/22 14:19 Freq: Status: Active Protocol: Document 03/04/22 13:05 CGR (Rec: 03/04/22 13:15 CGR [id number]) OT Summary Assessment and Plan Potential Rehabilitation Potential Good Analytic Complexity at Evaluation Moderate Summary OT Impairments Balance,Coordination, Functional Cognition, Functional Mobility,Grooming, Dressing,Toileting,Bathing, Toilet Transfers,Shower Transfers,Activity Tolerance Progress Towards Goals Slow Progress due to Medical Issues Assessment Summary Pt presents as a low complexity evaluation s/p admit for falls and found to have pancreatitis. Pt currently with brace on R ankle from fx from fall. Pt appears apprehensive with mobility and is easily fatigued at this time. Pt agreeable to getting up to sink but requests to sit immediately stating that he just feels weak. Pt performed ADLs at sink then rolled in chair back to bedside and changed gown. Discussion with nursing indicates that he was continent when he admitted and now appears to be incontinent . Pt will benefit from SNF and needs cog assessment. Goals Self-Feeding Goal Independent Grooming Goal Independent Dressing Goal Independent Toileting Goal Independent Bathing Goal Independent Toilet Transfer Goal Independent Shower Transfer Goal Independent Days to Meet Goals 15 Frequency of Treatment Frequency Of Treatment Once a Day Treatment Plan OT Treatment Plan ADL Training,Functional Cognition Training,Functional Mobility,Patient/Family Education,Discharge Planning Other Treatment Recommendations and Next cog assessment, ADLs standing Treatment Focus vs sitting. Discharge Recommendations OT Discharge Recommendations SNF Rehab Other Discharge Recommendations At this time recommendation is for SNF Transportation Needs at Discharge Private Vehicle
--- NOTE | 2022-03-04 13:23 | PM.PN.1 ---
Subjective Subjective Interval history: overnight nausea, emesis x1 Exam Vital Signs (past 8 hours): - 03/04/22 08:00 03/04/22 07:00 03/04/22 12:15 Temperature 98.5 F Pulse Rate 79 Respiratory Rate 16 Blood Pressure 178/80 H Pulse Oximetry 95 Oxygen Delivery Method Room Air Oxygen Flow Rate 0 Oxygen Delivery Method Room Air Oxygen Flow Rate 0 Const General: cooperative and comfortable Nutritional Appearance: average body habitus Orientation: alert, awake and oriented x3 HENMT Head: normocephalic and atraumatic Ears: hearing grossly normal bilaterally Eyes General: appearance normal, both eyes and all related structures Sclera: sclerae normal Neck Neck: normal visual inspection and trachea midline Chest Chest: normal inspection of the chest Resp Effort & Inspection: normal respiratory effort and able to speak in complete sentences Cardio Rate: regular rate Rhythm: regular rhythm GI Inspection: normal to inspection Palpation: soft Other: soft and non tender Skin General: no rashes or lesions noted and atrophy Neuro General: patient alert, patient awake and patient oriented x3 Extrem Other: brace on right ankle Psych Appearance: grossly normal Mental Status: mental status grossly normal Thought Process: normal Judgment: judgment good Objective Imaging CT scan - chest: My impression: . Atherosclerotic plaque in both proximal internal carotid arteries results in 60 percent stenosis on the left and no hemodynamically significant stenosis on the right utilizing NASCET criteria.? ? 2. 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 3. No evidence of large vessel occlusion, aneurysm or acute intracranial hemorrhage. ? Labs Result Diagrams: 03/03/22 08:15 03/03/22 08:15 Labs: Laboratory Results - last 24 hr 03/02/22 03/04/22 06:42 09:15 Lipase 314 H Vitamin B12 571 Folate > 20.0 H PFSH Medical History Combined hyperlipidemia Concussion Essential tremor Falls frequently GERD (gastroesophageal reflux disease) Intraparenchymal hemorrhage of brain Surgical History S/P total hip arthroplasty Status post colonoscopy Status post radical cystoprostatectomy Family History Father Prostate cancer Kidney problem Mother Old age Social History household members: spouse Smoking Status: Former smoker Tobacco: How many years used: 50 second hand exposure: No alcohol intake: current substance use type: does not use Assessment & Plan Assessment & Plan narrative: Acute pancreatitis -lipase is trending down - advanced diet Syncope likely vasovagal -US doppler with 50-69% stenosis -CT angio head and neck with 60% stenosis left -ECHO grossy unremarkable ? 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 Chronic.? -continue bracing and outpatient f/u Right frontal intraparenchymal bleed? Chronic/Unchanged.? -close monitoring Alcohol abuse 3 glassess of Visky weekly -continue CIWA -counseled to stop?alcohol abuse DVT prophylaxis; SCD, ambulation Time Spent With Patient Critical Care time: I spent a total of [] minutes of critical care time on this patient's care today; this time is exclusive of procedural time. Quality VTE Deep Vein Thrombosis/Pulmonary Embolism Present on Admission: No
--- NOTE | 2022-03-04 13:43 | PC.RNWOUND ---
Patient resting in bed, turns to side with minimal assist. There is some blanchable redness noted to the inside of the gluteal cleft but no areas of nonblanchable redness noted. No stage 1 pressure injury noted to coccyx. Gluteal folds must be for blanchable redness to be visible all along inside of gluteal cleft. Area is wiped with bath wipe, there is some stool present on skin. This redness appears to be a small amount of irritation from incontinence. Area is cleansed well with wipes. Patient tolerates well.
--- NOTE | 2022-03-04 14:43 | CM.DPC ---
Addendum entered by Aubrie Amado R.N. 03/05/22 10:44: Massiel at [facility] confirmed acceptance, and can parts picker patient at approximately 1300. Updated patient, and he wanted to make sure spouse is aware. Spoke to spouse, Margarita, and she is aware of parts picker at approximately 1300. She asked about visitation policy, and let her know that this DC associate financial planner would have Massiel at [facility] call her. February indicated, other family members can visit as long as they are wearing a mask. Updated nurseLiban, and updated aboriginal community council member. Let hospitalist know so that she can do the discharge orders. Places a stat COVID order. Plan is for patient to discharge today to [facility]. Addendum entered by Aubrie Amado R.N. 03/04/22 15:48: Spoke to Massiel at [facility], indicated, she should be able to accept, as long as he does not need recent outpatient treatment for his Pancreatitis. PASSR completed today, will see if patient is medically ready to DC tomorrow. Original Note: DCP Cont: Met with patient, and spouse, Margarita. Josue.T. had worked with patient, recommended alf. Mehga Manzanares, is currently working with patient. Introduced self and role to spouse and patient. Mentioned the possibility of alf, and patient is willing to go to rehab if needed before going home. Patient has been to outpatient P.T. Gave spouse Medicare Choice List. She is hopeful that patient can go here in town to [facility]. Continue to encourage other choices, but did send initial referral over to Massiel at [facility], and left her a message. Patient would need an auth from [facility]. P: DCP to continue to follow, working on alf facility, have started with [facility]. Aubrie Amado, RN/[place] [facility]er
--- NOTE | 2022-03-04 14:57 | PT.IPTN ---
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 (03/01/22) Physical Therapy Treatment Note M2 PT-IP Current Condition Start: 03/03/22 08:08 Freq: NEEDED Status: Active Protocol: Document 03/04/22 14:25 SP (Rec: 03/04/22 17:02 SP [id number]) Physical Therapy Current Condition Current Condition Evaluation Date 03/03/22 Treatment Diagnosis recurrent falls; acute pancreatitis Onset Date 03/01/22 M3 PT-IP Subjective Start: 03/03/22 08:08 Freq: NEEDED Status: Active Protocol: Document 03/04/22 14:25 SP (Rec: 03/04/22 17:02 SP [id number]) Subjective Physical Therapy Visit Type Type Treatment Note Visit Start Time 14:25 Visit Stop Time 14:57 Total Visit Minutes 32 Notes Vitals taken during tx: supine: 121/84 HR 75 SaO2 100% on RA. Seated: 144/79 unable get in standing: once seated: 108/81 supine: 162/85 Nonsymptomatic throughout mobility. Number of ENVIRONMENTAL EDUCATOR Visits 1 Physical Therapy Visit Comments Patient Comments Pt is willing to participate with PT but states really tired from walking with OT but will do exercises and standing. Patient Goals I am ok going to rehab to get stronger before returning home with to over see him , she can not provide the physical help needed right now . Therapy Pain Assessment Pain When Pain Assessed During Mobility Pain Present Pain Present Denied Pain M4 PT-IP Mobility and Gait Start: 03/03/22 08:08 Freq: NEEDED Status: Active Protocol: Document 03/04/22 14:25 SP (Rec: 03/04/22 17:02 SP [id number]) PT-Bed Mobility Assessment Supine to Sit Supine to Sit Maximum Assistance,1 Person Assistance,Bedrails Sit to Supine Sit to Supine Standby Assistance,Bedrails Scooting Scooting to Edge of Bed Minimal Assistance PT-Transfer Assessment Sit to and From Stand Sit to and from Stand Minimal Assistance,Moderate Assistance,1 Person Assistance ,Use of Upper Extremities Equipment Transfer Assistive Device Gait Belt,Front Wheeled Walker Orthotic/Prosthetic Devices or Brace: Yes Transfers Transfer Destination Chair Transfer Technique Stand Step Pivot Transfer Ability Level of Assist Minimal Assistance,Moderate Assistance,1 Person Assistance ,Use of Upper Extremities Comments Mobility Comments See vitals above, hypotensive in standing but nonsymptomatic throughout tx. Instructed supine and seated LE exercises to perform for strength in mobility: AP, HS, hip abd, SLR x5 each. HOB flat LR R SBA, Max A x1 for supine>sit with support for trunk righting heavy BUE support, CGA for scooting to EOB. Sit>Stand Mod A x1 with cues upright posture and quad fac, SPT w/ FWW to chair Min- Mod A, cued step back fully and reach back slow descent Min A. After seated rest, Sit>stand Mod A BUE support push from chair, SPT back to bed Min A Stand> sit Min A>supine SBA then instructed center away from EOB SBA. He had call light and all needs in reach. ENVIRONMENTAL EDUCATOR provided written list of LE ex can do in bed and seated between PT txs. Pt will require SNF for strength and functional independence in mobility at this time when medically cleared. Will continue to assess progress. Gait Assessment Gait Gait Assistance Required: Minimum Assistance,1 Person Assist Distance (Feet) 3 Able to Maintain Weight Bearing Status Yes During Gait Assistive Devices Assistive Device Gait Belt,Front Wheeled Walker Orthotic/Prosthetic Devices or Brace: Yes Gait Deviations General Gait Pattern Antalgic,Decreased Stride Length,Decreased Feet Clearance,Flexed Trunk,Step-to Gait Factors Limiting Gait Function Factors Limiting Gait Function Decreased Activity Tolerance, Decreased Strength,Limited Range of Motion,Poor Balance, Poor Safety Awareness Comments Gait Comments see mobility comments for details. Stair Climbing Assessment Comments Stair Climbing Comments Unable to assess. Will need assess for safe DC home when able: 2 steps no HR but wall on R and SPC/ QC/ trek poles uses at home if needed on stairs. PT-Balance Assessment Sitting Balance and Reactions Static Sitting Balance Ability Good Dynamic Sitting Balance Ability Fair Standing Balance and Reactions Static Standing Balance Ability Fair Dynamic Standing Balance Ability Fair Device Used FWW M5 PT-IP Objective Assessments Start: 03/03/22 08:08 Freq: NEEDED Status: Active Protocol: Document 03/03/22 11:38 AW (Rec: 03/03/22 13:16 AW [id number]) Orientation Orientation/Cognition Level of Alertness Alert Orientation Name,Month,Place,Situation Safety Awareness Decreased Safety Awareness Gross Range of Motion Lower Extremity ROM Assessment Right Impaired Impairments R ankle lacks dorsiflexion Strength Lower Extremity Strength Assessment Bilaterally Impaired Hip 4-/5 Knee 4/5 Ankle R 3-/5; L 4-/5 Sensation Assessment Sensation Gross Sensation WNL M6 PT-IP Treatment Start: 03/03/22 08:08 Freq: NEEDED Status: Active Protocol: Document 03/04/22 14:25 SP (Rec: 03/04/22 17:02 SP [id number]) Physical Therapy Treatment Exercises Exercises Ankle Pumps,Gluteal Sets,Quad Sets,Heel Slides,Straight Leg Raises,Supine Hip Abduction, Seated Knee Flexion/Extension Education Education Provided Safety Other Treatments Other Treatment Performed Discussed seated marching but didn't perform this tx. M7 PT-IP Assessment and Plan Start: 03/03/22 08:08 Freq: NEEDED Status: Active Protocol: Document 03/04/22 14:25 SP (Rec: 03/04/22 17:02 SP [id number]) PT Summary Assessment and Plan Potential Rehabilitation Potential Good Status of Condition at Evaluation Evolving Summary Impairments ROM,Strength,Balance,Bed Mobility,Transfers,Gait, Activity Tolerance Progress Towards Goals Progressing Toward Goals,Slow Progress due to Activity Tolerance Assessment Summary Pt unable provide physical assist requires at this time, hypotensive during tx nonsymptomatic, he required Max A for bed mobility HOB flat assimulate home mobility, Min- Mod A for transfers and small distance gait, tires quickly and was recoverying from OT tx when arrived so unable progress gait. Will require SNF for progress strength and functional mobility. Will continue to assess progress. Goals Bed Mobility Goal Independent Transfer Goal Independent,Front Wheeled Walker Gait Goal Standby Assistance,Front Wheel Walker Gait Distance 200 Other Goals - up/down 2 steps no rail SBA Days to Meet Goals 10 Frequency of Treatment Frequency Of Treatment Once a Day Treatment Plan Physical Therapy Treatment Plan Bed Mobility Training,Transfer Training,Gait Training, Therapeutic Exercise,Balance Retraining,Discharge Planning, Hot or Cold Pack Other Recommendations and Next Treatment Ther ex, bed mob HOB flat, Focus transfers and gait w/ FWW. Precautions Other Precautions recurrent falls Weight Bearing Status Weight Bearing Status Weight Bear as Tolerated Allowed Weight Bearing Amount (enter % WBAT RLE or #) (%) Recommendations To Nursing Amount of Assist Needed 1 Person Assist Discharge Recommendations PT Discharge Recommendations SNF Rehab Transportation Needs at Discharge Private Vehicle,Wheelchair/ Cabulance
[2022-03-04 16:37] VITALS: BP 142/75; PULSE 77; RESP 16; TEMP 36.6; O2SAT 97
--- NOTE | 2022-03-04 17:11 | PC.NURSE ---
Pt is AxO4, VSS, pt denies pain but pt c/o feeling nauseas after lunch. No emesis. Simona ellen offered and pt stated he feels better. Pt's diet is advanced to general and pt had some food today. Pt worked with PT and pt did well. No pt is 1 person acute care nursing assistant with FWW. No other changes. Continue monitor.
[2022-03-04] MEDS: ONDANSETRON 4 MG/2 ML INJ IV (18:07)
[2022-03-04 19:22] VITALS: O2SAT 95
[2022-03-04 20:00] VITALS: BP 147/77; PULSE 74; RESP 16; TEMP 37.1; O2SAT 94
[2022-03-05 05:45] VITALS: BP 159/82; PULSE 63; RESP 16; TEMP 36.6; O2SAT 94
--- NOTE | 2022-03-05 08:56 | PT.IPTN ---
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 (03/01/22) Physical Therapy Treatment Note M2 PT-IP Current Condition Start: 03/03/22 08:08 Freq: NEEDED Status: Active Protocol: Document 03/05/22 08:30 SP (Rec: 03/05/22 11:52 SP [id number]) Physical Therapy Current Condition Current Condition Evaluation Date 03/03/22 Treatment Diagnosis recurrent falls; acute pancreatitis Onset Date 03/01/22 M3 PT-IP Subjective Start: 03/03/22 08:08 Freq: NEEDED Status: Active Protocol: Document 03/05/22 08:30 SP (Rec: 03/05/22 11:52 SP [id number]) Subjective Physical Therapy Visit Type Type Treatment Note Visit Start Time 08:30 Visit Stop Time 08:56 Total Visit Minutes 26 Notes Hypertensive initially, then hypotensive during mobility- Hospitalist Dr Evans aware when arrived during tx for assessment. RUE automated: Supine: 152/124 HR 87 post mobility: 100/62 HR 102 Reported very little dizziness just before sat down but not during gait. Number of ARMATURE WINDER REPAIR Visits 2 Physical Therapy Visit Comments Patient Comments Pt willing to work with therapy. Patient Goals Go to rehab to get stronger and not need help getting around because can't give physical assist. Therapy Pain Assessment Pain When Pain Assessed During Mobility Pain Present Pain Present Denied Pain M4 PT-IP Mobility and Gait Start: 03/03/22 08:08 Freq: NEEDED Status: Active Protocol: Document 03/05/22 08:30 SP (Rec: 03/05/22 11:52 SP [id number]) PT-Bed Mobility Assessment Supine to Sit Supine to Sit Minimal Assistance,1 Person Assistance,Head of Bed Elevated,Bedrails Scooting Scooting to Edge of Bed Contact Guard Assistance PT-Transfer Assessment Sit to and From Stand Sit to and from Stand Minimal Assistance,1 Person Assistance,Use of Upper Extremities Equipment Transfer Assistive Device Gait Belt,Front Wheeled Walker Orthotic/Prosthetic Devices or Brace: Yes Transfers Transfer Destination Chair Transfer Technique pt ambulated using FWW Transfer Ability Level of Assist Minimal Assistance,1 Person Assistance,Use of Upper Extremities Comments Mobility Comments Hypertensive pre mobility, hospitalist aware, hypotensive during mobililty. ELevated supine>sit (doesn't have elevation at home to assist him reports) use bed rails, scoot CGA with heavy BUE support and momentum. sit> stand Min A with BUE. Gait further around room Mod BUE perssure on FWW CG-Min A for trunk stability, noted trunk sways, Mod cues for body closer to FWW, upright posture and foot clearance/ stride. Pt only tolerated 1 lap in room 30 ft due to decreased activity tolerance and reported feeling little dizzy needing to sit down. Cued back step with FWW fully to chair CGA- Min A and cues for proper hand placement support to descend sit in chair, plopped last 1 inch into chair. Assisted pt leg elevation, dizziness recovers within a minute. Pt reports doesn't feel safe to return home and can't do the 2 steps yet has to get in home without rails. Pt had all needs in reach and chair alarms donned due to fall risk. Gait Assessment Gait Gait Assistance Required: Minimum Assistance,1 Person Assist Distance (Feet) 30 Able to Maintain Weight Bearing Status Yes During Gait Assistive Devices Assistive Device Gait Belt,Front Wheeled Walker Orthotic/Prosthetic Devices or Brace: Yes Gait Deviations General Gait Pattern Antalgic,Decreased Stride Length,Decreased Feet Clearance,Flexed Trunk Factors Limiting Gait Function Factors Limiting Gait Function Decreased Activity Tolerance, Decreased Strength,Limited Range of Motion,Poor Balance, Poor Safety Awareness Comments Gait Comments see mobility comments Stair Climbing Assessment Comments Stair Climbing Comments Unable to assess. Will need assess for safe DC home when able: 2 steps no HR but wall on R and SPC/ QC/ trek poles uses at home if needed on stairs. PT-Balance Assessment Sitting Balance and Reactions Static Sitting Balance Ability Normal Dynamic Sitting Balance Ability Good Standing Balance and Reactions Static Standing Balance Ability Fair Dynamic Standing Balance Ability Fair Device Used FWW M5 PT-IP Objective Assessments Start: 03/03/22 08:08 Freq: NEEDED Status: Active Protocol: Document 03/03/22 11:38 AW (Rec: 03/03/22 13:16 AW [id number]) Orientation Orientation/Cognition Level of Alertness Alert Orientation Name,Month,Place,Situation Safety Awareness Decreased Safety Awareness Gross Range of Motion Lower Extremity ROM Assessment Right Impaired Impairments R ankle lacks dorsiflexion Strength Lower Extremity Strength Assessment Bilaterally Impaired Hip 4-/5 Knee 4/5 Ankle R 3-/5; L 4-/5 Sensation Assessment Sensation Gross Sensation WNL M6 PT-IP Treatment Start: 03/03/22 08:08 Freq: NEEDED Status: Active Protocol: Document 03/05/22 08:30 SP (Rec: 03/05/22 11:52 SP [id number]) Physical Therapy Treatment Exercises Exercises Ankle Pumps,Gluteal Sets,Quad Sets,Heel Slides,Straight Leg Raises,Supine Hip Abduction, Seated Knee Flexion/Extension Education Education Provided Safety Other Treatments Other Treatment Performed x5 reps each M7 PT-IP Assessment and Plan Start: 03/03/22 08:08 Freq: NEEDED Status: Active Protocol: Document 03/05/22 08:30 SP (Rec: 03/05/22 11:52 SP [id number]) PT Summary Assessment and Plan Potential Rehabilitation Potential Good Status of Condition at Evaluation Evolving Summary Impairments ROM,Strength,Balance,Bed Mobility,Transfers,Gait, Activity Tolerance Progress Towards Goals Progressing Toward Goals,Slow Progress due to Medical Issues ,Slow Progress due to Activity Tolerance Assessment Summary Pt requires Min A for all mobility using FWW, noted trunk sways and decreased foot clearance/stride. Continues to be hypotensive with symptoms this tx. Decreased activity tolerance, unable to assess 2 step stair mgt due to decrease in BP 50 pt decrease systolic value. Pt would benefit from SNF for progress strength and functional mobility. Pt states is unable to provide assist required at this time. Goals Bed Mobility Goal Independent Transfer Goal Independent,Front Wheeled Walker Gait Goal Standby Assistance,Front Wheel Walker Gait Distance 200 Other Goals - up/down 2 steps no rail SBA Days to Meet Goals 10 Frequency of Treatment Frequency Of Treatment Once a Day Treatment Plan Physical Therapy Treatment Plan Bed Mobility Training,Transfer Training,Gait Training, Therapeutic Exercise,Balance Retraining,Discharge Planning, Hot or Cold Pack Other Recommendations and Next Treatment bed mob HOB flat, transfers, Focus gait, 2 step stair mgt no rails but lateral pressure on R and SPC left when safe. Precautions Other Precautions recurrent falls Weight Bearing Status Weight Bearing Status Weight Bear as Tolerated Allowed Weight Bearing Amount (enter % WBAT RLE or #) (%) Recommendations To Nursing Amount of Assist Needed 1 Person Assist Discharge Recommendations PT Discharge Recommendations SNF Rehab Transportation Needs at Discharge Private Vehicle,Wheelchair/ Cabulance
[2022-03-05 09:00] VITALS: BP 173/90; PULSE 85; RESP 16; TEMP 36.8; O2SAT 92
[2022-03-05] MEDS: PROPRANOLOL 10 MG TABLET 20 MG PO (10:02)
--- NOTE | 2022-03-05 11:58 | PM.DS.1 ---
History of Present Illness History of Present Illness Date Patient Seen: 03/01/22 Time Patient Seen: 21:38 Chief complaint: GLF Narrative: This is an 81-year-old male with hypertension, hyperlipidemia, GERD, recurrent falls and ?months of stomach upset. ? He presents today with a syncopal fall in the bathroom after urinating this morning. He does not think he hit his head but he also suspects he briefly lost consciousness. He is unable to formulate any particular reason for why he has fallen several times recently. He says his left hip is weak but not really painful. He has already had his right hip replaced. He fell 2 weeks ago and did experience an intraparenchymal bleed, 5 mm in the right frontal lobe. He also fell 6 weeks ago and has a healing right ankle fracture, currently in a brace. He has had a poor appetite and has vomited a few times but does not have any real nausea or abdominal pain. This has been going on for ?months. ? On evaluation he has evident asymptomatic pancreatitis with a lipase level of 1,[address] scan showing pancreatic inflammation, a possible pancreatic neoplasm and sludge in his gallbladder. He drinks 3 drinks of whiskey on Friday nights and Friday nights and does not drink any other alcohol. He has no history of hypertriglyceridemia, prior pancreatitis, excessive alcohol use or cholecystitis. Discharge Providers Provider Date of admission: 03/01/22 19:19 Discharge Date: 03/05/22 Primary care physician: Abbe Aguirre MD Consults: 03/02/22 06:27 Consult to Inpatient Wound Care Nurse Routine Comment: Reason for consultation: Stage 1 pressure in the coccyx. Has provider been notified: No 03/02/22 10:46 Consult to Occupational Therapy Evaluate & Treat Comment: falling and dizzy Physician Instructions: Evaluate and treat Consult to Physical Therapy Evaluate & Treat Comment: falling Physician Instructions: Evaluate and Treat Discharge provider: Jacki Evans Summary Hospital Course Discharge Diagnosis: pancreatitis acute Hospital Course: Acute pancreatitis- improved/lipase normal, tolerated diet Syncope- likely vasovagal,-US doppler with 50-69% stenosis, -CT angio head and neck with 60% stenosis left -ECHO grossy unremarkable, needs f/u outpatient ? 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 Chronic.? continue bracing and outpatient f/u Right frontal intraparenchymal bleed? Chronic/Unchanged.? Alcohol abuse3 glassess of Visky weekly, counseled Exam Vital Signs (past 8 hours): - 03/05/22 05:45 03/05/22 09:00 Temperature 97.9 F 98.2 F Pulse Rate 63 85 Respiratory Rate 16 16 Blood Pressure 159/82 H 173/90 H Pulse Oximetry 94 92 Oxygen Flow Rate 0 0 Oxygen Delivery Method Room Air Oxygen Flow Rate 0 Const General: cooperative and comfortable Nutritional Appearance: average body habitus Orientation: alert, awake and oriented x3 HENMT Head: normocephalic and atraumatic Ears: hearing grossly normal bilaterally Eyes General: appearance normal, both eyes and all related structures Sclera: sclerae normal Neck Neck: normal visual inspection and trachea midline Chest Chest: normal inspection of the chest Resp Effort & Inspection: normal respiratory effort and able to speak in complete sentences Cardio Rate: regular rate Rhythm: regular rhythm GI Inspection: normal to inspection Palpation: soft Other: soft and non tender Skin General: no rashes or lesions noted and atrophy Neuro General: patient alert, patient awake and patient oriented x3 Extrem Other: brace on right ankle Psych Appearance: grossly normal Mental Status: mental status grossly normal Thought Process: normal Judgment: judgment good Objective Labs Result Diagrams: 03/03/22 08:15 03/03/22 08:15 [facility] Medical History Combined hyperlipidemia Concussion Essential tremor Falls frequently GERD (gastroesophageal reflux disease) Intraparenchymal hemorrhage of brain Surgical History S/P total hip arthroplasty Status post colonoscopy Status post radical cystoprostatectomy Family History Father Prostate cancer Kidney problem Mother Old age Social History household members: spouse Smoking Status: Former smoker Tobacco: How many years used: 50 second hand exposure: No alcohol intake: current substance use type: does not use Discharge Plan Discharge Plan Patient Disposition: SNF Discharge orders & Medications Prescriptions: Continued MULTIVITAMIN (#MULTIPLE VITAMINS) 1 cap PO Q DAY Qty: 0 propranolol 20 mg tablet 20 mg PO BID Qty: 180 2RF omeprazole 20 mg capsule,delayed release(DR/EC) 20 mg PO DAILY Qty: 90 1RF clobetasol 0.05 % solution 1 ml TOPICAL BID Label Comments: MIX INTO A JAR OF CERAVE CREAM AND APPLY TO ARMS AND LEGS TWICE A... (REFER TO PRESCRIPTION NOTES). Follow up/Referrals: Abbe Aguirre MD [Primary Care Provider] - Discharge Data Primary Care Provider: Abbe Aguirre Quality VTE Deep Vein Thrombosis/Pulmonary Embolism Present on Admission: No
[2022-03-05 12:38] VITALS: BP 122/73; PULSE 74; RESP 16; TEMP 36.6; O2SAT 94
[2022-03-05 13:00] LABS: COVID19 -Nasal RAPID Negative (Negative)
== END 2022-03-05 13:55 | DRG 440 ==
LOC: ED 19:08 → AC 19:21
PROVIDERS: Emergency Medicine; Internal Medicine; Admitting Provider Family Medicine; Emergency Provider Nurse Practitioner Critical Care Medicine; PCP Student in an Organized Health Care Education/Training Program; Referring Provider Nurse Practitioner Critical Care Medicine; Visit Provider Family Medicine
DX: K85.20 Alcohol induced acute pancreatitis without necrosis or infection (principal); R19.09 Other intra-abdominal and pelvic swelling, mass and lump; D69.59 Other secondary thrombocytopenia; F10.10 Alcohol abuse, uncomplicated; I65.22 Occlusion and stenosis of left carotid artery; R29.6 Repeated falls; I10 Essential (primary) hypertension; G25.0 Essential tremor; R55 Syncope and collapse; E78.5 Hyperlipidemia, unspecified; K21.9 Gastro-esophageal reflux disease without esophagitis; S82.891D Other fracture of right lower leg, subsequent encounter for closed fracture with routine healing; S09.90XA Unspecified injury of head, initial encounter; W18.30XA Fall on same level, unspecified, initial encounter; W19.XXXD Unspecified fall, subsequent encounter; Z20.822 Contact with and (suspected) exposure to COVID-19; Z87.891 Personal history of nicotine dependence; I48.91 Unspecified atrial fibrillation
CPT/HCPCS: 36415; 70450; 70496; 70498; 74177; 76705; 80053; 80061; 81003; 81015; 82607; 82746; 83690; 85025; 87633; 87635; 93005; 93010; 93306; 93880; 97110; 97116; 97162; 97166; 97530; 97535; 99284; C9803; J2405; Q9967

== ENCOUNTER → 2022-04-22 09:14 | Outpatient (CLI) | payer MEDICARE, SELFPAY ==
[2022-03-01 22:41] VITALS: BMI 26.5
[2022-04-22 09:47] LABS: Add Manual Diff / Slide Review NO; Basophils Absolute Auto 0 /uL (0-100); Basophils Percent Auto 0.8 % (0-2); Eosinophils Absolute Auto 200 /uL (0-450); Eosinophils Percent Auto 4.8 % (2-4); Hematocrit 40.4 % (41-53); Hemoglobin 13.7 g/dL (13.5-17.5); Lymphocytes Absolute Auto 1700 /uL (1100-4500); Lymphocytes Percent Auto 36.9 % (25-40); Mean Corpuscular Hemoglobin 34.3 PG (26-34); Mean Corpuscular Volume 100.8 fL (80-100); Monocytes Absolute Auto 500 /uL (0-900); Monocytes Percent Auto 11.7 % (3-14); Neutrophils Absolute Auto 2100 /uL (1500-7000); Neutrophils Percent Auto 45.8 % (50-75); Platelet Count 198 X10^3/uL (150-400); Red Blood Cell Count 4.01 X10^6/uL (4.5-5.9); Red Cell Distribution Width 13.5 % (11.6-14.8); White Blood Cell Count 4.7 X10^3/uL (4.5-11.0)
[2022-04-22 10:28] LABS: BUN Creatinine Ratio 13.8 (6-22); Blood Urea Nitrogen 12 mg/dL (9-20); Calcium 9.1 mg/dL (8.4-10.2); Carbon Dioxide 26 mmol/L (22-32); Chloride 107 mmol/L (98-107); Estimated Glomerular Filt Rate > 60 mL/min (>60); Glucose 97 mg/dL (80-110); HEMOLYSIS < 15 (0-50); Potassium 3.6 mmol/L (3.4-5.1); Sodium 142 mmol/L (137-145)
== END ==
PROVIDERS: PCP Student in an Organized Health Care Education/Training Program; Referring Provider Nurse Practitioner Acute Care; Visit Provider Nurse Practitioner Acute Care
DX: R55 Syncope and collapse (principal)
CPT/HCPCS: 36415; 80048; 85025

== ENCOUNTER 2022-09-26 15:18 | Inpatient (IN) | payer MEDICARE, SELFPAY ==
[2022-03-01 22:41] VITALS: BMI 26.5
[2022-09-26] VITALS (23 sets, daily range): BP systolic 134–185; BP diastolic 70–98; PULSE 66–90; RESP 18–24; TEMP 36.4–37.2; O2SAT 86–100; BMI 22.3
--- NOTE | 2022-09-26 15:27 | DI.CT.S_ITS ---
PROCEDURE: CT FACIAL BONES WO CON INDICATIONS: fall TECHNIQUE: Noncontrast 2.5 mm thick axial images acquired from the mandible through the frontal sinuses, with coronal and sagittal reformatting. For radiation dose reduction, the following was used: automated exposure control, adjustment of mA and/or kV according to patient size. COMPARISON: None. FINDINGS: Image quality: Excellent. Bones and teeth: Orbital lutz are intact. Sinus lutz show no fracture or deformity. Nasal bones and septum are intact. Visualized portions of the mandible demonstrate no fractures or subluxation. Zygomatic arches are intact. Pterygoid plates are intact. Visualized portions of the skull base and auditory canals are intact. Sinuses: Paranasal sinuses are aerated, without fluid levels, mucosal thickening, or mucoceles. Mastoid air cells are aerated. Soft tissues: Left lateral periorbital/temporal soft tissue swelling and subcutaneous hematoma. No enlarged lymph nodes. No soft tissue lacerations or debris. Vascular: Visualized vascular structures appear normal in the absence of contrast. Bony vascular foramina and canals are intact. IMPRESSION: 1. No facial bone fractures. 2. Left lateral periorbital/frontal temporal soft tissue injury without underlying fracture. Dictated by: Jolene Navarro M.D. on 09/26/2022 at 16:53 Approved by: Jolene Navarro M.D. on 09/26/2022 at 17:12
--- NOTE | 2022-09-26 15:27 | DI.RAD.S_ITS ---
PROCEDURE: XR CHEST 1V INDICATIONS: fall TECHNIQUE: One view of the chest was acquired. COMPARISON: None. FINDINGS: Surgical changes and devices: None. Lungs and pleura: Lungs are clear. No pleural effusions or pneumothorax. Mediastinum: Mediastinal contours appear normal. Heart size is normal. Bones and chest wall: No suspicious bony lesions. Overlying soft tissues appear unremarkable. IMPRESSION: No acute process. Dictated by: Chastity Perales M.D. on 09/26/2022 at 15:49 Approved by: Chastity Perales M.D. on 09/26/2022 at 15:50
--- NOTE | 2022-09-26 15:27 | DI.CT.S_ITS ---
PROCEDURE: CT HEAD/BRAIN WO CON INDICATIONS: fall with loc TECHNIQUE: Noncontrast 4.5 mm thick angled axial sections acquired from the foramen magnum to the vertex, with coronal and sagittal reformats. For radiation dose reduction, the following was used: automated exposure control, adjustment of mA and/or kV according to patient size. COMPARISON: [facility], CT, CT HEAD/BRAIN WO CON, 03/01/2022, 14:23. FINDINGS: Image quality: Excellent. CSF spaces: Basal cisterns are patent. No extra-axial fluid collections. The ventricles are symmetric in size and shape. Brain: There are two linear juxta cortical, subarachnoid foci in the right frontoparietal region with subtle effacement of sulci in this area. Findings are suspicious for trace posttraumatic hemorrhage. There is an ovoid area of hyperdensity along the left superior temporal lobe cortex also suggestive of acute subarachnoid hemorrhage. There is a 7 mm chronic round hyperdensity in the right frontal subcortical white matter. There is cerebral volume loss for age, with resultant ventricular and sulcal prominence. There are periventricular and deep white matter chronic small vessel ischemic changes. There is intracranial internal carotid artery atherosclerosis. Skull and face: There is a moderate-sized left periorbital temporal region subcutaneous hematoma about 1.3 cm in thickness. No definite underlying fracture seen on this exam. Sinuses: Visualized sinuses and mastoids are clear. IMPRESSION: 1. There are two linear areas in the right frontoparietal region with minor adjacent edema consistent with posttraumatic subarachnoid hemorrhage. 2. Small ovoid focus of hyperdensity in the left temporal lobe cortex suggesting subarachnoid hemorrhage, less likely parenchymal contusion. 3. There is a chronic hyperdensity in the right frontal subcortical white matter consistent with a vascular anomaly. 4. Left temporal subcutaneous hematoma without underlying fracture. 5. Findings discussed with Dr. Martinez in the emergency room at 16:52 hours. Dictated by: Jolene Navarro M.D. on 09/26/2022 at 16:41 Approved by: Jolene Navarro M.D. on 09/26/2022 at 16:53
--- NOTE | 2022-09-26 15:27 | DI.CT.S_ITS ---
PROCEDURE: CT CERVICAL SPINE WO CON INDICATIONS: fall TECHNIQUE: Noncontrast 3 mm thick sections acquired from the skull base to the T4 level. Sagittal and coronal reformats were then constructed. For radiation dose reduction, the following was used: automated exposure control, adjustment of mA and/or kV according to patient size. COMPARISON: None. FINDINGS: Image quality: Excellent. Bones: No fractures or dislocations. Severe degenerative changes at the atlantodental interval with joint space loss and hypertrophic spurring. Lateral masses of C1 are normally aligned on C2. There is severe degenerative disc height loss at C3-4, and C5-6 with moderate disc height loss and partial vertebral body ankylosis at C2-3 and C4-5. Visualized superior ribs are intact. Soft tissues: Prevertebral soft tissues are normal in thickness. No paravertebral hematomas. No apical pneumothoraces. Moderate atherosclerotic calcification of the carotid bulbs. IMPRESSION: 1. No CT evidence of acute fracture. 2. 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 Dictated by: Jolene Navarro M.D. on 09/26/2022 at 17:12 Approved by: Jolene Navarro M.D. on 09/26/2022 at 17:15
[2022-09-26 15:32] LABS: Add Manual Diff / Slide Review NO; Basophils Absolute Auto 0 /uL (0-100); Basophils Percent Auto 0.6 % (0-2); Eosinophils Absolute Auto 200 /uL (0-450); Hematocrit 44.4 % (41-53); Hemoglobin 15.1 g/dL (13.5-17.5); Lymphocytes Absolute Auto 2400 /uL (1100-4500); Lymphocytes Percent Auto 38.8 % (25-40); Mean Corpuscular Hemoglobin 34.5 PG (26-34); Mean Corpuscular Volume 101.3 fL (80-100); Monocytes Absolute Auto 800 /uL (0-900); Monocytes Percent Auto 13.2 % (3-14); Neutrophils Absolute Auto 2800 /uL (1500-7000); Neutrophils Percent Auto 44.4 % (50-75); Platelet Count 108 X10^3/uL (150-400); Red Blood Cell Count 4.38 X10^6/uL (4.5-5.9); Red Cell Distribution Width 13.7 % (11.6-14.8); White Blood Cell Count 6.3 X10^3/uL (4.5-11.0)
[2022-09-26 15:40] LABS: Alanine Aminotransferase 133 IU/L (<50); Albumin 4.9 g/dL (3.5-5.0); Albumin Globulin Ratio 1.3 (1.0-2.8); Alkaline Phosphatase 54 U/L (38-126); Aspartate Aminotransferase 195 IU/L (17-59); BUN Creatinine Ratio 12.4 (6-22); Blood Urea Nitrogen 16 mg/dL (9-20); Calcium 9.2 mg/dL (8.4-10.2); Carbon Dioxide 28 mmol/L (22-32); Chloride 93 mmol/L (98-107); Creatine Kinase 102 U/L (55-170); Estimated Glomerular Filt Rate 55 mL/min (>60); Globulin 3.7 g/dL (1.7-4.1); Glucose 108 mg/dL (80-110); HEMOLYSIS < 15 (0-50); Lipase 92 U/L (23-300); Potassium 3.5 mmol/L (3.4-5.1); Sodium 139 mmol/L (137-145); Total Protein 8.6 g/dL (6.3-8.2)
[2022-09-26 15:51] LABS: Troponin I < 0.012 ng/mL (0.01-0.034)
[2022-09-26 15:55] LABS: CKMB % Relative Index 0.9 % (1.5-5.0); Creatine Kinase MB 0.96 ng/mL (<2.37)
[2022-09-26] MEDS: SODIUM CHLORIDE 0.9% 1,000 ML 150 ML IV (16:06)
--- NOTE | 2022-09-26 16:51 | ED.SYNCOPE ---
HPI - Syncope <Vandana Martinez DO - Last Filed: 09/27/22 08:41> General Chief Complaint: Syncope Stated Complaint: Syncope Time Seen by Provider: 09/26/22 15:27 Source: EMS Mode of arrival: Wheelchair Limitations: no limitations History of Present Illness HPI narrative: Patient is a 82-year-old male history of acid reflux on omeprazole presenting after syncopal episode. states that he does get dizzy and lightheaded when he stands up sometimes. He was in the bathroom she heard him fall he did hit his head on the left side and had a brief loss of consciousness. He did not nauseated or vomiting. He has no weakness numbness or tingling. But he is quite confused. says he is normally very sharp but he is a little sluggish to respond confused about the events that have happened. Does not seem to be asking appropriate questions. Related Data Home Medications Medication Instructions Recorded Confirmed omeprazole 20 mg capsule,delayed 20 mg PO DAILY 08/12/22 09/26/22 release famotidine 40 mg tablet 40 mg PO DAILY 09/26/22 09/26/22 Allergies Allergy/AdvReac Type Severity Reaction Status Date / Time No Known Allergies Allergy Verified 06/26/22 12:51 Review of Systems <Vandana Martinez DO - Last Filed: 09/27/22 08:41> Review of Systems ROS Unobtainable: All systems reviewed & are unremarkable except as noted in HPI and below Patient History <Vandana Martinez DO - Last Filed: 09/27/22 08:41> Medical History Alcoholic pancreatitis Combined hyperlipidemia Concussion Essential tremor Falls frequently Fatty liver GERD (gastroesophageal reflux disease) Intraparenchymal hemorrhage of brain Right fibular fracture Surgical History S/P total hip arthroplasty Status post colonoscopy Status post radical cystoprostatectomy Family History Father Prostate cancer Kidney problem Mother Old age Social History household members: spouse Smoking Status: Former smoker Tobacco: How many years used: 50 second hand exposure: No alcohol intake: current substance use type: does not use Smoking Status: Former smoker alcohol intake frequency: a few times a week Substance Use Type: does not use Exam <Vandana Martinez DO - Last Filed: 09/27/22 08:41> Initial Vital Signs Initial Vital Signs: Vital Signs Temperature 97.5 F L 09/26/22 15:20 Pulse Rate 90 09/26/22 15:20 Respiratory Rate 18 09/26/22 15:20 Blood Pressure 160/78 H 09/26/22 15:20 Pulse Oximetry 91 09/26/22 15:20 Oxygen Delivery Method 09/26/22 15:20 GENERAL: [Well-appearing, well-nourished] and in [no acute] distress. HEENT: Head atraumatic,EOMI, pupils reactive, face symmetric, [moist] mucous membranes [EARS:] [Tympanic membranes visualized, no erythema or bulging, no hemotympanum] [PHARYNX:] [No erythema, no tonsillar exudate, no cervical lymphadenopathy] CARDIOVASCULAR: Regular rate and rhythm without murmurs, rubs or gallops. RESPIRATORY: Breath sounds equal bilaterally, no wheezes rales or rhonchi. ABDOMEN: Soft, nontender. Normoactive bowel sounds all 4 quadrants. No guarding or rebound. EXTREMITIES: Normal range of motion, no clubbing or edema. Neurovascularly intact NEUROLOGICAL: Alert and oriented x4. SKIN: Warm, dry, no laceration, no petechiae, no rashes or lesions. <Charmaine Reaves DO - Last Filed: 09/27/22 02:33> Initial Vital Signs Initial Vital Signs: Vital Signs Temperature 97.5 F L 09/26/22 15:20 Pulse Rate 90 09/26/22 15:20 Respiratory Rate 18 09/26/22 15:20 Blood Pressure 160/78 H 09/26/22 15:20 Pulse Oximetry 91 09/26/22 15:20 Oxygen Delivery Method 09/26/22 15:20 Course <DO Dora Webster Last Filed: 09/27/22 08:41> Orders Ordered: Acetaminophen (Acetaminophen 325 Mg Tablet) 650 mg PO Q6H PRN PRN Reason: Fever/Mild Pain (1-3) Last Admin: 09/26/22 23:54 Dose: 650 mg Documented By: ASHOK Folic Acid (Folic Acid 1 Mg Tablet) 1 mg PO DAILY [facility] Lisinopril (Lisinopril 10 Mg Tablet) 10 mg PO DAILY [facility] Lorazepam (Lorazepam 2 Mg/Ml Inj) 0 mg IV CIWAPRN PRN; Protocol PRN Reason: Alcohol Withdrawal Multivitamins (Multivitamin 1 Tablet) 1 tab PO DAILY [facility] Naloxone HCl (Naloxone 0.4 Mg/Ml Vial) 0.2 mg IV Q2MIN PRN PRN Reason: Opiate Reversal Ondansetron HCl (Ondansetron 4 Mg/2 Ml Inj) 4 mg IV Q6HR PRN PRN Reason: Nausea And Vomiting Sennosides (Sennosides 8.6 Mg Tablet) 17.2 mg PO BEDTIME [facility] Thiamine HCl (Thiamine 100 Mg Tablet) 100 mg PO DAILY [facility] Stop: 09/30/22 09:01 Discontinued Medications Chlordiazepoxide HCl (Chlordiazepoxide 25 Mg Capsule) 50 mg PO Q6HR [facility] Stop: 09/27/22 18:01 Last Admin: 09/27/22 06:03 Dose: Not Given Documented By: Admin: 09/26/22 23:14 Dose: 50 mg Documented By: ASHOK Sodium Chloride (Normal Saline 0.9%) 1,000 mls @ 150 mls/hr IV CONT ANGEL Last Infusion: 09/26/22 23:03 Dose: 150 mls/hr Documented By: Admin: 09/26/22 16:06 Dose: 150 mls/hr Documented By: AARON Sodium Chloride (Normal Saline 0.9%) 1,000 mls @ 60 mls/hr IV CONT ANGEL Last Admin: 09/26/22 23:10 Dose: 60 mls/hr Documented By: ASHOK Magnesium Sulfate (Magnesium Sulfate) 4 gm in 100 mls @ 25 mls/hr IV NOW ONE Stop: 09/27/22 04:53 Last Infusion: 09/27/22 06:03 Dose: 25 mls/hr Documented By: ASHOK Co-signed By: ROSS Admin: 09/27/22 01:07 Dose: 25 mls/hr Documented By: ASHOK Co-signed By: ASHWIN Labetalol HCl (Labetalol 20 Mg/4 Ml Syringe) 10 mg IV Q4HR PRN; Protocol PRN Reason: Givefor HR>110,SBP>160,DBP>or Pantoprazole Sodium (Pantoprazole 40 Mg Vial) 40 mg IV DAILY [facility] Stop: 09/29/22 08:59 Vital Signs Vital signs: Vital Signs - 8 hr 09/26/22 18:30 09/26/22 19:00 09/26/22 19:07 Pulse Rate 82 77 Respiratory Rate 20 20 Blood Pressure 157/84 H Pulse Oximetry 95 97 Oxygen Delivery Method Nasal Cannula Nasal Cannula Oxygen Flow Rate 2 2 09/26/22 19:07 09/26/22 19:45 09/26/22 19:53 Pulse Rate 80 79 Respiratory Rate 19 Blood Pressure 162/78 H Pulse Oximetry 98 95 Oxygen Delivery Method Nasal Cannula Nasal Cannula Oxygen Flow Rate 2 2 09/26/22 19:53 09/26/22 20:00 09/26/22 20:00 Pulse Rate 75 81 Respiratory Rate 21 20 Blood Pressure 134/98 H Pulse Oximetry 98 98 Oxygen Delivery Method Nasal Cannula Nasal Cannula Oxygen Flow Rate 2 2 09/26/22 20:30 09/26/22 20:30 Pulse Rate 77 Respiratory Rate 20 Blood Pressure 166/80 H Pulse Oximetry 100 Oxygen Delivery Method Nasal Cannula Oxygen Flow Rate 2 <Charmaine Reaves, - Last Filed: 09/27/22 02:33> Orders Ordered: Acetaminophen (Acetaminophen 325 Mg Tablet) 650 mg PO Q6H PRN PRN Reason: Fever/Mild Pain (1-3) Last Admin: 09/26/22 23:54 Dose: 650 mg Documented By: ASHOK Folic Acid (Folic Acid 1 Mg Tablet) 1 mg PO DAILY [facility] Lisinopril (Lisinopril 10 Mg Tablet) 10 mg PO DAILY [facility] Lorazepam (Lorazepam 2 Mg/Ml Inj) 0 mg IV CIWAPRN PRN; Protocol PRN Reason: Alcohol Withdrawal Multivitamins (Multivitamin 1 Tablet) 1 tab PO DAILY [facility] Naloxone HCl (Naloxone 0.4 Mg/Ml Vial) 0.2 mg IV Q2MIN PRN PRN Reason: Opiate Reversal Ondansetron HCl (Ondansetron 4 Mg/2 Ml Inj) 4 mg IV Q6HR PRN PRN Reason: Nausea And Vomiting Sennosides (Sennosides 8.6 Mg Tablet) 17.2 mg PO BEDTIME [facility] Thiamine HCl (Thiamine 100 Mg Tablet) 100 mg PO DAILY [facility] Stop: 09/30/22 09:01 Discontinued Medications Chlordiazepoxide HCl (Chlordiazepoxide 25 Mg Capsule) 50 mg PO Q6HR [facility] Stop: 09/27/22 18:01 Last Admin: 09/27/22 06:03 Dose: Not Given Documented By: Admin: 09/26/22 23:14 Dose: 50 mg Documented By: ASHOK Sodium Chloride (Normal Saline 0.9%) 1,000 mls @ 150 mls/hr IV CONT ANGEL Last Infusion: 09/26/22 23:03 Dose: 150 mls/hr Documented By: Admin: 09/26/22 16:06 Dose: 150 mls/hr Documented By: AARON Sodium Chloride (Normal Saline 0.9%) 1,000 mls @ 60 mls/hr IV CONT ANGEL Last Admin: 09/26/22 23:10 Dose: 60 mls/hr Documented By: ASHOK Magnesium Sulfate (Magnesium Sulfate) 4 gm in 100 mls @ 25 mls/hr IV NOW ONE Stop: 09/27/22 04:53 Last Infusion: 09/27/22 06:03 Dose: 25 mls/hr Documented By: ASHOK Co-signed By: ROSS Admin: 09/27/22 01:07 Dose: 25 mls/hr Documented By: ASHOK Co-signed By: ASHWIN Labetalol HCl (Labetalol 20 Mg/4 Ml Syringe) 10 mg IV Q4HR PRN; Protocol PRN Reason: Givefor HR>110,SBP>160,DBP>or Pantoprazole Sodium (Pantoprazole 40 Mg Vial) 40 mg IV DAILY [facility] Stop: 09/29/22 08:59 Consultations Consultation #1: Dr. Hsieh, neurosurgery states does not need repeat head CTs unless changing exam. Hold aspirin for 1 week. Agrees with plan to observe overnight as patient has persistent confusion. Time: 20:44 Consultation #2: PASHA Lopez, hospitalist: Accepts for observation. Patient does have noted in his history she alcoholic pancreatitis so alcohol level was added on. Time: 20:44 Vital Signs Vital signs: Vital Signs - 8 hr 09/26/22 18:30 09/26/22 19:00 09/26/22 19:07 Pulse Rate 82 77 Respiratory Rate 20 20 Blood Pressure 157/84 H Pulse Oximetry 95 97 Oxygen Delivery Method Nasal Cannula Nasal Cannula Oxygen Flow Rate 2 2 09/26/22 19:07 09/26/22 19:45 09/26/22 19:53 Pulse Rate 80 79 Respiratory Rate 19 Blood Pressure 162/78 H Pulse Oximetry 98 95 Oxygen Delivery Method Nasal Cannula Nasal Cannula Oxygen Flow Rate 2 2 09/26/22 19:53 09/26/22 20:00 09/26/22 20:00 Pulse Rate 75 81 Respiratory Rate 21 20 Blood Pressure 134/98 H Pulse Oximetry 98 98 Oxygen Delivery Method Nasal Cannula Nasal Cannula Oxygen Flow Rate 2 2 09/26/22 20:30 09/26/22 20:30 Pulse Rate 77 Respiratory Rate 20 Blood Pressure 166/80 H Pulse Oximetry 100 Oxygen Delivery Method Nasal Cannula Oxygen Flow Rate 2 MDM - Syncope <Vandana Martinez, DO - Last Filed: 09/27/22 08:41> Lab Data Result diagrams: 09/27/22 04:08 09/27/22 04:08 Labs: Lab Results 09/26/22 09/26/22 09/26/22 Range/Units 15:22 15:22 15:22 WBC 6.3 (4.5-11.0) X10^3/uL RBC 4.38 L (4.5-5.9) X10^6/uL Hgb 15.1 (13.5-17.5) g/dL Hct 44.4 (41-53) % MCV 101.3 H (80-100) fL MCH 34.5 H (26-34) PG MCHC 34.0 (30-36) % RDW 13.7 (11.6-14.8) % Plt Count 108 L (150-400) X10^3/uL Neut % (Auto) 44.4 L (50-75) % Lymph % (Auto) 38.8 (25-40) % [place] % (Auto) 13.2 (3-14) % Eos % (Auto) 3.0 (2-4) % Baso % (Auto) 0.6 (0-2) % Neut # (Auto) 2800 (4667-7754) /uL Lymph # (Auto) 2400 (3772-4258) /uL [place] # (Auto) 800 (0-900) /uL Eos # (Auto) 200 (0-450) /uL Baso # (Auto) 0 (0-100) /uL Sodium 139 (137-145) mmol/L Potassium 3.5 (3.4-5.1) mmol/L Chloride 93 L (98-107) mmol/L Carbon Dioxide 28 (22-32) mmol/L BUN 16 (9-20) mg/dL Creatinine 1.29 H (0.66-1.25) mg/dL Estimated GFR 55 L (>60) mL/min BUN/Creatinine Ratio 12.4 (6-22) Glucose 108 (80-110) mg/dL Calcium 9.2 (8.4-10.2) mg/dL Total Bilirubin 1.0 (0.2-1.3) mg/dL AST 195 H (17-59) IU/L ALT 133 H (<50) IU/L Alkaline Phosphatase 54 (38-126) U/L Total Creatine Kinase 102 (55-170) U/L CK-MB (CK-2) 0.96 (<2.37) ng/mL CK-MB (CK-2) Rel Index 0.9 L (1.5-5.0) % Troponin I < 0.012 (0.01-0.034) ng/mL Total Protein 8.6 H (6.3-8.2) g/dL Albumin 4.9 (3.5-5.0) g/dL Globulin 3.7 (1.7-4.1) g/dL Albumin/Globulin Ratio 1.3 (1.0-2.8) Lipase 92 (23-300) U/L Urine Color Urine Appearance Urine pH (4.5-8.0) Ur Specific [place] (1.000-1.035) Urine Protein (Negative) Urine Glucose (UA) (Negative) g/dL Urine Ketones (NEGATIVE) Urine Occult Blood (Negative) Urine Nitrate (Negative) Urine Bilirubin (NEGATIVE) Ur Bilirubin Confirm (Negative) Urine Urobilinogen (0.2) E.U./dL Ur Leukocyte Esterase (NEGATIVE) Urine RBC (0-5/HPF) Urine WBC (0-5/HPF) Ur Squamous Epith Cells (0-5/HPF) Urine Bacteria (None) Hyaline Casts (None) Ur Culture Indicated? Ethyl Alcohol 144 H ( - 10) mg/dL SARS-CoV-2 (PCR) (Negative) 09/26/22 09/26/22 Range/Units 17:14 18:14 WBC (4.5-11.0) X10^3/uL RBC (4.5-5.9) X10^6/uL Hgb (13.5-17.5) g/dL Hct (41-53) % MCV (80-100) fL MCH (26-34) PG MCHC (30-36) % RDW (11.6-14.8) % Plt Count (150-400) X10^3/uL Neut % (Auto) (50-75) % Lymph % (Auto) (25-40) % [place] % (Auto) (3-14) % Eos % (Auto) (2-4) % Baso % (Auto) (0-2) % Neut # (Auto) (7974-7326) /uL Lymph # (Auto) (6653-2738) /uL [place] # (Auto) (0-900) /uL Eos # (Auto) (0-450) /uL Baso # (Auto) (0-100) /uL Sodium (137-145) mmol/L Potassium (3.4-5.1) mmol/L Chloride (98-107) mmol/L Carbon Dioxide (22-32) mmol/L BUN (9-20) mg/dL Creatinine (0.66-1.25) mg/dL Estimated GFR (>60) mL/min BUN/Creatinine Ratio (6-22) Glucose (80-110) mg/dL Calcium (8.4-10.2) mg/dL Total Bilirubin (0.2-1.3) mg/dL AST (17-59) IU/L ALT (<50) IU/L Alkaline Phosphatase (38-126) U/L Total Creatine Kinase (55-170) U/L CK-MB (CK-2) (<2.37) ng/mL CK-MB (CK-2) Rel Index (1.5-5.0) % Troponin I (0.01-0.034) ng/mL Total Protein (6.3-8.2) g/dL Albumin (3.5-5.0) g/dL Globulin (1.7-4.1) g/dL Albumin/Globulin Ratio (1.0-2.8) Lipase (23-300) U/L Urine Color Yellow Urine Appearance Clear Urine pH 5.0 (4.5-8.0) Ur Specific [place] 1.025 (1.000-1.035) Urine Protein 1+ H (Negative) Urine Glucose (UA) Negative (Negative) g/dL Urine Ketones Trace H (NEGATIVE) Urine Occult Blood Trace-lysed (Negative) Urine Nitrate Negative (Negative) Urine Bilirubin 1+ H (NEGATIVE) Ur Bilirubin Confirm Negative (Negative) Urine Urobilinogen 1.0 (0.2) E.U./dL Ur Leukocyte Esterase Negative (NEGATIVE) Urine RBC 1-5/hpf (0-5/HPF) Urine WBC None seen (0-5/HPF) Ur Squamous Epith Cells 0-1 /hpf (0-5/HPF) Urine Bacteria None seen (None) Hyaline Casts 1-5/lpf (None) Ur Culture Indicated? Cult not indicated Ethyl Alcohol ( - 10) mg/dL SARS-CoV-2 (PCR) Negative (Negative) MDM Narrative Medical decision making narrative: Patient is an 82-year-old male who presents today after syncopal episode in the bathroom with a loss of consciousness. reports that he has orthostatic hypotension and falls down or gets dizzy upon standing so he has to go slow. He is not on any antiplatelet or anticoagulation medication. 1st head CT does show small subarachnoid hemorrhages. He is neurologically intact but reports that he still mildly confused no slurring of speech but not necessarily asking appropriate questions and does not remember all of the events. Blood work is overall reassuring abnormalities include AST 195 ALT 133 bilirubin is normal at 1.0 creatinine mildly elevated at 1.29 possible dehydration. But electrolytes are within normal limits except chloride is mildly low at 93. He is noted to be mildly hypoxic requiring 2-3 L. Chest x-ray does not show any pneumothorax pneumonia or effusion. CT angio was ordered and still pending. Images have been pushed to [facility] awaiting her back from neurosurgery planning on repeating head CT at the 4 hour robson. Patient signed out to Dr. Reaves for further management 09/26/22 Jean Paul: Patient seen and independently evaluated by myself. Patient has GCS of 14 with some mild confusion but otherwise normal neuro exam for myself. Has a history of lightheadedness when he stands up and had a syncopal episode earlier today where he hit his head on the left side and had a brief loss of consciousness. Patient did note some persistent confusion. Patient has obvious contusion on the left temporal region. CBC, CMP show creatinine 1.29 with normal BUN, AST ALT are slightly elevated at 195 and 133, alk-phos and lipase are normal. Urine showed trace ketones and bilirubin. Patient is COVID negative. Patient's head CT shows 2 linear areas right frontoparietal region with minor adjacent edema consistently posttraumatic subarachnoid hemorrhage as well as a small ovoid focus hyperdensity left temporal lobe suggesting subarachnoid hemorrhage versus less likely parenchymal contusion and chronic hyperdensity in the right front subcortical white matter consistent with vascular anomaly as well as left temporal subcutaneous hematoma without fracture. There is possibility patient may be on aspirin 81 mg daily, patient and family state he is not but there is a home medication list in our EMR that states he is. CT cervical spine as well as facial bones were negative with only soft tissue injury noted on CT facial bones. Chest x-ray was negative as well. Patient was noted to have a dip in his oxygen saturation in the department. On my evaluation he has no current complaints. He has not had any medications that should drop his O2 sat. Neurosurgery was consulted awaiting call back and during this time patient had repeat head CT at 4 hour robson as well as a CT PE scan for syncope with low oxygen saturation. Repeat head CT does not show any acute change as well as chest CTA shows possible atelectasis, no PE. Neuro surgery from [facility], Dr. Hsieh: Recommends no aspirin for at least 1 week, no other anticoagulants motion x1 week. Does recommend repeat head CT if any other new acute neurologic changes. He had reviewed initial head CT has not reviewed the secondary at this time but we reviewed current read at this time there does not appear any increase in size or change of bleed and patient is felt appropriate to be kept here. Does not require transfer at this time. Patient does have some persistent confusion, spoke with hospitalist and Alfred Lopez who accepts for observation. 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 Suspect confusion is more related to patient's head injury and subarachnoid bleed. We did discuss recommendations from Neurosurgery. <Charmaine Reaves, - Last Filed: 09/27/22 02:33> Lab Data Labs: Lab Results 09/26/22 09/26/22 09/26/22 Range/Units 15:22 15:22 15:22 WBC 6.3 (4.5-11.0) X10^3/uL RBC 4.38 L (4.5-5.9) X10^6/uL Hgb 15.1 (13.5-17.5) g/dL Hct 44.4 (41-53) % MCV 101.3 H (80-100) fL MCH 34.5 H (26-34) PG MCHC 34.0 (30-36) % RDW 13.7 (11.6-14.8) % Plt Count 108 L (150-400) X10^3/uL Neut % (Auto) 44.4 L (50-75) % Lymph % (Auto) 38.8 (25-40) % [place] % (Auto) 13.2 (3-14) % Eos % (Auto) 3.0 (2-4) % Baso % (Auto) 0.6 (0-2) % Neut # (Auto) 2800 (4488-1031) /uL Lymph # (Auto) 2400 (1493-3797) /uL [place] # (Auto) 800 (0-900) /uL Eos # (Auto) 200 (0-450) /uL Baso # (Auto) 0 (0-100) /uL Sodium 139 (137-145) mmol/L Potassium 3.5 (3.4-5.1) mmol/L Chloride 93 L (98-107) mmol/L Carbon Dioxide 28 (22-32) mmol/L BUN 16 (9-20) mg/dL Creatinine 1.29 H (0.66-1.25) mg/dL Estimated GFR 55 L (>60) mL/min BUN/Creatinine Ratio 12.4 (6-22) Glucose 108 (80-110) mg/dL Calcium 9.2 (8.4-10.2) mg/dL Total Bilirubin 1.0 (0.2-1.3) mg/dL AST 195 H (17-59) IU/L ALT 133 H (<50) IU/L Alkaline Phosphatase 54 (38-126) U/L Total Creatine Kinase 102 (55-170) U/L CK-MB (CK-2) 0.96 (<2.37) ng/mL CK-MB (CK-2) Rel Index 0.9 L (1.5-5.0) % Troponin I < 0.012 (0.01-0.034) ng/mL Total Protein 8.6 H (6.3-8.2) g/dL Albumin 4.9 (3.5-5.0) g/dL Globulin 3.7 (1.7-4.1) g/dL Albumin/Globulin Ratio 1.3 (1.0-2.8) Lipase 92 (23-300) U/L Urine Color Urine Appearance Urine pH (4.5-8.0) Ur Specific [place] (1.000-1.035) Urine Protein (Negative) Urine Glucose (UA) (Negative) g/dL Urine Ketones (NEGATIVE) Urine Occult Blood (Negative) Urine Nitrate (Negative) Urine Bilirubin (NEGATIVE) Ur Bilirubin Confirm (Negative) Urine Urobilinogen (0.2) E.U./dL Ur Leukocyte Esterase (NEGATIVE) Urine RBC (0-5/HPF) Urine WBC (0-5/HPF) Ur Squamous Epith Cells (0-5/HPF) Urine Bacteria (None) Hyaline Casts (None) Ur Culture Indicated? Ethyl Alcohol 144 H ( - 10) mg/dL SARS-CoV-2 (PCR) (Negative) 09/26/22 09/26/22 Range/Units 17:14 18:14 WBC (4.5-11.0) X10^3/uL RBC (4.5-5.9) X10^6/uL Hgb (13.5-17.5) g/dL Hct (41-53) % MCV (80-100) fL MCH (26-34) PG MCHC (30-36) % RDW (11.6-14.8) % Plt Count (150-400) X10^3/uL Neut % (Auto) (50-75) % Lymph % (Auto) (25-40) % [place] % (Auto) (3-14) % Eos % (Auto) (2-4) % Baso % (Auto) (0-2) % Neut # (Auto) (3600-2402) /uL Lymph # (Auto) (1490-6396) /uL [place] # (Auto) (0-900) /uL Eos # (Auto) (0-450) /uL Baso # (Auto) (0-100) /uL Sodium (137-145) mmol/L Potassium (3.4-5.1) mmol/L Chloride (98-107) mmol/L Carbon Dioxide (22-32) mmol/L BUN (9-20) mg/dL Creatinine (0.66-1.25) mg/dL Estimated GFR (>60) mL/min BUN/Creatinine Ratio (6-22) Glucose (80-110) mg/dL Calcium (8.4-10.2) mg/dL Total Bilirubin (0.2-1.3) mg/dL AST (17-59) IU/L ALT (<50) IU/L Alkaline Phosphatase (38-126) U/L Total Creatine Kinase (55-170) U/L CK-MB (CK-2) (<2.37) ng/mL CK-MB (CK-2) Rel Index (1.5-5.0) % Troponin I (0.01-0.034) ng/mL Total Protein (6.3-8.2) g/dL Albumin (3.5-5.0) g/dL Globulin (1.7-4.1) g/dL Albumin/Globulin Ratio (1.0-2.8) Lipase (23-300) U/L Urine Color Yellow Urine Appearance Clear Urine pH 5.0 (4.5-8.0) Ur Specific [place] 1.025 (1.000-1.035) Urine Protein 1+ H (Negative) Urine Glucose (UA) Negative (Negative) g/dL Urine Ketones Trace H (NEGATIVE) Urine Occult Blood Trace-lysed (Negative) Urine Nitrate Negative (Negative) Urine Bilirubin 1+ H (NEGATIVE) Ur Bilirubin Confirm Negative (Negative) Urine Urobilinogen 1.0 (0.2) E.U./dL Ur Leukocyte Esterase Negative (NEGATIVE) Urine RBC 1-5/hpf (0-5/HPF) Urine WBC None seen (0-5/HPF) Ur Squamous Epith Cells 0-1 /hpf (0-5/HPF) Urine Bacteria None seen (None) Hyaline Casts 1-5/lpf (None) Ur Culture Indicated? Cult not indicated Ethyl Alcohol ( - 10) mg/dL SARS-CoV-2 (PCR) Negative (Negative) Imaging Data CT scan - head: Radiologist's Impression: Two linear areas in the right frontoparietal region with minor adjacent edema consistent with posttraumatic subarachnoid hemorrhage. Small ovoid focus of hyperdensity in the left temporal lobe cortex suggesting subarachnoid hemorrhage, less likely parenchymal contusion. There is chronic hyperdensity in the right frontal subcortical white matter consistent with vascular anomaly. Left temporal subcutaneous hematoma without underlying fracture. CT scan - chest: Radiologist's Impression: No evidence of pulmonary embolism. No acute airspace consolidation. Mild dependent atelectasis and scarring bilaterally. No other acute changes noted. Repeat Head CT: Radiologist's Impression: Decreased prominence of previous visualized areas of subarachnoid hemorrhage, no new intracranial hemorrhage identified. Left frontal temporal subcutaneous hematoma redemonstrated without associated fracture. 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 Moderate cerebral volume loss and mild chronic white still ischemic changes. MDM Narrative Medical decision making narrative: 09/26/22 Mank: Patient seen and independently evaluated by myself. Patient has GCS of 14 with some mild confusion but otherwise normal neuro exam for myself. Has a history of lightheadedness when he stands up and had a syncopal episode earlier today where he hit his head on the left side and had a brief loss of consciousness. Patient did note some persistent confusion. Patient has obvious contusion on the left temporal region. CBC, CMP show creatinine 1.29 with normal BUN, AST ALT are slightly elevated at 195 and 133, alk-phos and lipase are normal. Urine showed trace ketones and bilirubin. Patient is COVID negative. Patient's head CT shows 2 linear areas right frontoparietal region with minor adjacent edema consistently posttraumatic subarachnoid hemorrhage as well as a small ovoid focus hyperdensity left temporal lobe suggesting subarachnoid hemorrhage versus less likely parenchymal contusion and chronic hyperdensity in the right front subcortical white matter consistent with vascular anomaly as well as left temporal subcutaneous hematoma without fracture. There is possibility patient may be on aspirin 81 mg daily, patient and family state he is not but there is a home medication list in our EMR that states he is. CT cervical spine as well as facial bones were negative with only soft tissue injury noted on CT facial bones. Chest x-ray was negative as well. Patient was noted to have a dip in his oxygen saturation in the department. On my evaluation he has no current complaints. He has not had any medications that should drop his O2 sat. Neurosurgery was consulted awaiting call back and during this time patient had repeat head CT at 4 hour robson as well as a CT PE scan for syncope with low oxygen saturation. Repeat head CT does not show any acute change as well as chest CTA shows possible atelectasis, no PE. Neuro surgery from [facility], Dr. Hsieh: Recommends no aspirin for at least 1 week, no other anticoagulants motion x1 week. Does recommend repeat head CT if any other new acute neurologic changes. He had reviewed initial head CT has not reviewed the secondary at this time but we reviewed current read at this time there does not appear any increase in size or change of bleed and patient is felt appropriate to be kept here. Does not require transfer at this time. Patient does have some persistent confusion, spoke with hospitalist and Alfred Lopez who accepts for observation. 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 Suspect confusion is more related to patient's head injury and subarachnoid bleed. We did discuss recommendations from Neurosurgery. Discharge Plan Departure Patient Disposition: Admitted as Observation Clinical Impression: Subarachnoid hemorrhage, Acute confusion Admit Date/Time: 09/26/22 20:52 Admit Provider: Erna Lopez
[2022-09-26 17:48] LABS: COVID19 -Nasal RAPID Negative (Negative)
--- NOTE | 2022-09-26 18:08 | DI.CT.S_ITS ---
PROCEDURE: CT ANGIO CHEST PE PROTOCOL INDICATIONS: hypoxia TECHNIQUE: After the administration of intravenous contrast, 2 mm thick sections acquired from the pulmonary apices to the posterior costophrenic angles. 3-dimensional maximum intensity projection (MIP) coronal and sagittal reformats were then acquired through the thorax. For radiation dose reduction, the following was used: automated exposure control, adjustment of mA and/or kV according to patient size. COMPARISON: None. FINDINGS: Image quality: There is mild motion artifact limiting evaluation. Pulmonary arteries: Pulmonary arteries are normal in size, and demonstrate no intraluminal filling defects to suggest central pulmonary embolism. Lower Neck: No lymphadenopathy by size criteria. Thyroid: Visualized thyroid demonstrates no discrete nodules. Axillae: No lymphadenopathy by size criteria. Chest Wall: Unremarkable. Bones: Visualized osseous structures demonstrate no suspicious lesions. Lungs and Airways: No acute consolidation. There is mild dependent atelectasis and scarring bilaterally. The trachea and central airways are patent. Pleura: No pneumothorax or pleural effusions. Heart: Heart size is normal. No pericardial effusion. Thoracic Vessels: The thoracic aorta is normal in size. Mediastinum and Pati: No lymphadenopathy by size criteria. Esophagus: No wall thickening. No hiatal hernia. Abdomen: Visualized upper abdominal solid organs appear normal in the early arterial phase of enhancement. IMPRESSION: 1. No evidence of pulmonary embolism. 2. No acute airspace consolidation. Dictated by: Jerrod Olsen M.D. on 09/26/2022 at 20:19 Approved by: Jerrod Olsen M.D. on 09/26/2022 at 20:29
[2022-09-26 18:24] LABS: Appearance Urine UA CLEAR; Bilirubin Urine UA 1+ (NEGATIVE); Color Urine UA YELLOW; Glucose Urine UA NEGATIVE (Negative); Ketones Urine UA TRACE (NEGATIVE); Leukocyte Esterase Urine UA NEGATIVE (NEGATIVE); Nitrite Urine UA NEGATIVE (Negative); Occult Blood Urine UA TRACE-LYSED (Negative); Protein Urine UA 1+ (Negative); Specific Gravity Urine UA 1.025 (1.000-1.035)
[2022-09-26 18:39] LABS: Bacteria Urine None Seen; Culture Indicated Urine Cult Not Indicated; Hyaline Casts Urine 1-5/LPF; Ictotest Urine Negative (Negative); RBC Urine 1-5/HPF (0-5/HPF); Squamous Epithelial Cell Urine 0-1 /HPF (0-5/HPF); WBC Urine None Seen (0-5/HPF)
--- NOTE | 2022-09-26 19:35 | DI.CT.S_ITS ---
PROCEDURE: CT HEAD/BRAIN WO CON INDICATIONS: repeat head ct SAh TECHNIQUE: Noncontrast 4.5 mm thick angled axial sections acquired from the foramen magnum to the vertex, with coronal and sagittal reformats. For radiation dose reduction, the following was used: automated exposure control, adjustment of mA and/or kV according to patient size. COMPARISON: [facility], CT, CT HEAD/BRAIN WO CON, 03/01/2022, 14:23. [facility], CT, CT HEAD/BRAIN WO CON, 09/26/2022, 15:35. FINDINGS: Image quality: Excellent. CSF spaces: Basal cisterns are patent. There is moderate cerebral volume loss, with resultant ventricular and sulcal prominence. Brain: Previously visualized small linear areas of subarachnoid hemorrhage along the right parietal lobe sulci are less discrete on the current study. The previously identified extra-axial focus of hyperdensity along the left temporal lobe has decreased in density compared to the prior study and is less prominent. No new intracranial hemorrhage. No intracranial mass or mass effect. 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 There are subcortical, periventricular and deep white matter hypodensities consistent with mild chronic small vessel ischemic changes. The painting-white matter junction appears preserved. There is intracranial internal carotid artery atherosclerosis. Skull and face: Calvarium and visualized facial bones appear intact. A left frontal temporal subcutaneous hematoma is redemonstrated. Sinuses: Visualized sinuses and mastoids are clear. IMPRESSION: 1. Decreased prominence of the previously visualized areas of subarachnoid hemorrhage. No new intracranial hemorrhage identified. 2. Left frontal temporal subcutaneous hematoma redemonstrated without associated fracture. 3. 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 4. Moderate cerebral volume loss and mild chronic white matter small vessel ischemic changes. Dictated by: Jerrod Olsen M.D. on 09/26/2022 at 20:01 Approved by: Jerrod Olsen M.D. on 09/26/2022 at 20:11
--- NOTE | 2022-09-26 20:09 | PC.NURSE ---
Responded to pt call light, pt states Dr was bringing him a remote for the tv, educated pt room does not have a tv. Pt called approximately 5 minutes later and repeated same question, attempted to re-orient pt.
[2022-09-26 21:02] LABS: Ethanol (ETOH) 144 mg/dL
--- NOTE | 2022-09-26 23:01 | P.HP_ITS ---
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 Patient denies nauseated or vomiting.? He has no weakness numbness or tingling.? But he is quite confused. Orientated to self and age but unable to recall where he is or why he is here. says he is normally very sharp in ED. patient denies any pain or discomfort upon admit, does complain of mild headache, no fever, body aches, chills, changes in vision, nausea, vomiting, diarrhea, no pain with eye movement, GCS 14, NIH 0. Patient's vitals upon admit temp 97.5?, BP 166/80, HR 77, R 20, O2 saturation 100% on room air. Patient's WBC and H&H are within normal limits, platelets 108, last platelet count was normal but did have noted platelet counts 62-78 following fall with head injury and hospital admit on 03/01/2022 chloride 93, creatinine 1.29 last labs 04/22/2022 creatinine 0.87, GFR> 60, platelets 198. , GFR today Moss 55 initial troponin WNL, total protein 8.6, lipase WNL, ETOH 144, urinalysis was positive for ketones, protein, bili no culture completed, AST 195, ALC T1 33. CTA negative for PE, face CT left lateral periorbital/frontal temporal soft tissue injury without fracture, chest x-ray negative for any cardiopulmonary process, C-spine moderate to severe degenerative disc disease in the upper cervical region. Head CT There are two linear areas in the right frontoparietal region with minor adjacent edema consistent with posttraumatic subarachnoid hemorrhage. 2. Small ovoid focus of hyperdensity in the left temporal lobe cortex suggesting subarachnoid hemorrhage, less likely parenchymal contusion. 3. There is a chronic hyperdensity in the right frontal subcortical white matter consistent with a vascular anomaly. 4. Left temporal subcutaneous hematoma without underlying fracture. Repeat head CT unchanged 4 hours later. Consult in ED per Dr. Martinez:Dr. Hsieh, neurosurgery states does not need repeat head CTs unless changing exam.? Hold aspirin for 1 week.? Agrees with plan to observe overnight as patient has persistent confusion. Patient admitted for ground level fall resulting in head injury/subarachnoid hem orrhage, encephalopathy, ETOH intoxication. Reviewed last GI consultation 03/28/2022 Dr. Rose, hospitalization [phone] for fall and head injury, cardiology consult Dr. Philippe 06/07/2022, Dr. Macedo [facility] 06/26/2022, carotid Doppler 03/03/2022, last echo 03/02/2022 EF 60-65%. ? ? ? Patient History Medical History Alcoholic pancreatitis Combined hyperlipidemia Concussion Essential tremor Falls frequently Fatty liver GERD (gastroesophageal reflux disease) Intraparenchymal hemorrhage of brain Right fibular fracture Surgical History S/P total hip arthroplasty Status post colonoscopy Status post radical cystoprostatectomy Family & Social History Family History Father Prostate cancer Kidney problem Mother Old age Social History: household members spouse Prior Living Arrangements House Safety & Behavioral: Feels Safe in Current Yes Environment Been Physically Hurt or No Threatened By a Person Tobacco & Substance use: Tobacco type cigarettes Smoking Status Former smoker alcohol intake current alcohol intake frequency a few times a week Substance Use Type does not use Meds Home Medications and Allergies Home Medications Medication Instructions Recorded Confirmed Type omeprazole 20 mg capsule,delayed 20 mg PO DAILY 08/12/22 09/26/22 History release famotidine 40 mg tablet 40 mg PO DAILY 09/26/22 09/26/22 History Allergies Allergy/AdvReac Type Severity Reaction Status Date / Time No Known Allergies Allergy Verified 06/26/22 12:51 Review of Systems Review of Systems Narrative: All 12 point systems reviewed with the patient and are negative except otherwise documented. Exam Vital Signs (past 8 hours): - 09/26/22 15:20 09/26/22 15:31 09/26/22 15:21 Temperature 97.5 F L Pulse Rate 90 86 Respiratory Rate 18 Blood Pressure 160/78 H Pulse Oximetry 91 97 91 Oxygen Delivery Method Room Air Nasal Cannula Oxygen Flow Rate 3 09/26/22 15:22 09/26/22 15:22 09/26/22 15:24 Temperature Pulse Rate 86 85 Respiratory Rate 24 Blood Pressure 160/78 H Pulse Oximetry 91 Oxygen Delivery Method Oxygen Flow Rate 09/26/22 15:24 09/26/22 15:30 09/26/22 15:30 Temperature Pulse Rate 87 Respiratory Rate 23 Blood Pressure 167/79 H 140/70 Pulse Oximetry 86 L Oxygen Delivery Method Oxygen Flow Rate 09/26/22 15:59 09/26/22 15:59 09/26/22 16:00 Temperature Pulse Rate 73 Respiratory Rate 21 Blood Pressure 168/83 H 153/83 H Pulse Oximetry 95 Oxygen Delivery Method Nasal Cannula Oxygen Flow Rate 3 09/26/22 16:00 09/26/22 16:30 09/26/22 16:30 Temperature Pulse Rate 73 70 Respiratory Rate 21 20 Blood Pressure 155/75 H Pulse Oximetry 97 99 Oxygen Delivery Method Nasal Cannula Nasal Cannula Oxygen Flow Rate 3 3 09/26/22 17:00 09/26/22 17:00 09/26/22 17:30 Temperature Pulse Rate 69 Respiratory Rate 23 Blood Pressure 152/74 H 152/77 H Pulse Oximetry 99 Oxygen Delivery Method Nasal Cannula Oxygen Flow Rate 3 09/26/22 17:30 09/26/22 18:00 09/26/22 18:00 Temperature Pulse Rate 70 71 Respiratory Rate 22 20 Blood Pressure 153/71 H Pulse Oximetry 99 99 Oxygen Delivery Method Nasal Cannula Oxygen Flow Rate 3 09/26/22 18:30 09/26/22 19:00 09/26/22 19:07 Temperature Pulse Rate 82 77 Respiratory Rate 20 20 Blood Pressure 157/84 H Pulse Oximetry 95 97 Oxygen Delivery Method Nasal Cannula Nasal Cannula Oxygen Flow Rate 2 2 09/26/22 19:07 09/26/22 19:45 09/26/22 19:53 Temperature Pulse Rate 80 79 Respiratory Rate 19 Blood Pressure 162/78 H Pulse Oximetry 98 95 Oxygen Delivery Method Nasal Cannula Nasal Cannula Oxygen Flow Rate 2 2 09/26/22 19:53 09/26/22 20:00 09/26/22 20:00 Temperature Pulse Rate 75 81 Respiratory Rate 21 20 Blood Pressure 134/98 H Pulse Oximetry 98 98 Oxygen Delivery Method Nasal Cannula Nasal Cannula Oxygen Flow Rate 2 2 09/26/22 20:30 09/26/22 20:30 09/26/22 21:00 Temperature Pulse Rate 77 Respiratory Rate 20 Blood Pressure 166/80 H 171/83 H Pulse Oximetry 100 Oxygen Delivery Method Nasal Cannula Oxygen Flow Rate 2 09/26/22 21:00 09/26/22 21:35 Temperature 99 F Pulse Rate 77 66 Respiratory Rate 20 21 Blood Pressure 185/91 H Pulse Oximetry 99 97 Oxygen Delivery Method Oxygen Flow Rate 2 Oxygen Delivery Method Nasal Cannula Oxygen Flow Rate 2 Narrative Exam Narrative: GENERAL: [Well-appearing, well-nourished] and in [no acute] distress. Slightly can HEENT:,EOMI, pupils reactive, face symmetric, [moist] mucous membranes noted bruising and abrasion, inflammation around left eye and to the lateral side, full range of motion of eyes without pain with movement [EARS:] [Tympanic membranes visualized, no erythema or bulging, no hemotympanum] [PHARYNX:] [No erythema, no tonsillar exudate, no cervical lymphadenopathy] CARDIOVASCULAR: Regular rate and rhythm without murmurs, rubs or gallops. RESPIRATORY: Breath sounds equal bilaterally, no wheezes rales or rhonchi. ABDOMEN: Soft, nontender.? Normoactive bowel sounds all 4 quadrants.? No guarding or rebound. EXTREMITIES: Normal range of motion, no clubbing or edema.? Neurovascularly intact NEUROLOGICAL: Alert and oriented to self only SKIN: Warm, dry, no laceration, no petechiae, no rashes or lesions-with the exception of eyes noted above.. Objective Labs Result Diagrams: 09/27/22 04:08 09/27/22 04:08 Labs: Laboratory Results - last 24 hr 09/26/22 09/26/22 09/26/22 15:22 15:22 15:22 WBC 6.3 RBC 4.38 L Hgb 15.1 Hct 44.4 MCV 101.3 H MCH 34.5 H MCHC 34.0 RDW 13.7 Plt Count 108 L Neut % (Auto) 44.4 L Lymph % (Auto) 38.8 [place] % (Auto) 13.2 Eos % (Auto) 3.0 Baso % (Auto) 0.6 Neut # (Auto) 2800 Lymph # (Auto) 2400 [place] # (Auto) 800 Eos # (Auto) 200 Baso # (Auto) 0 Sodium 139 Potassium 3.5 Chloride 93 L Carbon Dioxide 28 BUN 16 Creatinine 1.29 H Estimated GFR 55 L BUN/Creatinine Ratio 12.4 Glucose 108 Calcium 9.2 Total Bilirubin 1.0 AST 195 H ALT 133 H Alkaline Phosphatase 54 Total Creatine Kinase 102 CK-MB (CK-2) 0.96 CK-MB (CK-2) Rel Index 0.9 L Troponin I < 0.012 Total Protein 8.6 H Albumin 4.9 Globulin 3.7 Albumin/Globulin Ratio 1.3 Lipase 92 Urine Color Urine Appearance Urine pH Ur Specific [place] Urine Protein Urine Glucose (UA) Urine Ketones Urine Occult Blood Urine Nitrate Urine Bilirubin Ur Bilirubin Confirm Urine Urobilinogen Ur Leukocyte Esterase Urine RBC Urine WBC Ur Squamous Epith Cells Urine Bacteria Hyaline Casts Ur Culture Indicated? Ethyl Alcohol 144 H SARS-CoV-2 (PCR) 09/26/22 09/26/22 17:14 18:14 WBC RBC Hgb Hct MCV MCH MCHC RDW Plt Count Neut % (Auto) Lymph % (Auto) [place] % (Auto) Eos % (Auto) Baso % (Auto) Neut # (Auto) Lymph # (Auto) [place] # (Auto) Eos # (Auto) Baso # (Auto) Sodium Potassium Chloride Carbon Dioxide BUN Creatinine Estimated GFR BUN/Creatinine Ratio Glucose Calcium Total Bilirubin AST ALT Alkaline Phosphatase Total Creatine Kinase CK-MB (CK-2) CK-MB (CK-2) Rel Index Troponin I Total Protein Albumin Globulin Albumin/Globulin Ratio Lipase Urine Color Yellow Urine Appearance Clear Urine pH 5.0 Ur Specific [place] 1.025 Urine Protein 1+ H Urine Glucose (UA) Negative Urine Ketones Trace H Urine Occult Blood Trace-lysed Urine Nitrate Negative Urine Bilirubin 1+ H Ur Bilirubin Confirm Negative Urine Urobilinogen 1.0 Ur Leukocyte Esterase Negative Urine RBC 1-5/hpf Urine WBC None seen Ur Squamous Epith Cells 0-1 /hpf Urine Bacteria None seen Hyaline Casts 1-5/lpf Ur Culture Indicated? 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 Last admit fall with head injury on 03/01/2022 Patient admitted for ground level fall resulting in head injury/subarachnoid hemorrhage, encephalopathy, ETOH intoxication, KELVIN. 1. ground level fall resulting in head injury/subarachnoid hemorrhage, encephalopathy, acute, present on admit -GCS 14, NH 0 -admit temp 97.5?, BP 166/80, HR 77, R 20, O2 saturation 100% on room air. -WBC and H&H are within normal limits, platelets 108, last platelet count was normal but did have noted platelet counts 62-78 following -CTA negative for PE, -face CT left lateral periorbital/frontal temporal soft tissue injury without fracture, -chest x-ray negative, C-spine negative for acute process -Head CT There are two linear areas in the right frontoparietal region with adarsh r adjacent edema consistent with posttraumatic subarachnoid hemorrhage. 2. Small ovoid focus of hyperdensity in the left temporal lobe cortex suggesting subarachnoid hemorrhage, less likely parenchymal contusion. 3. There is a chronic hyperdensity in the right frontal subcortical white matter consistent with a vascular anomaly. 4. Left temporal subcutaneous hematoma without underlying fracture. Repeat head CT unchanged 4 hours later. Consult in ED per Dr. Martinez:Dr. Hsieh, neurosurgery states does not need repeat head CTs unless changing exam.? Hold aspirin for 1 week.? Agrees with plan to observe overnight as patient has persistent confusion. -monitor for hypoxemia, increased blood sugar, increased blood pressure, fever, neuro systemic complications, bleeding -continue lisinopril, labetalol as needed while NPO -NPO overnight -seizure precautions, fall precautions, bleeding precautions, neuro checks, NIH checks -noted in Cardiology notes 06/07/2022 the patient had a history of SVT and tachycardia with rates greater than 200 unknown etiology-placed on telemedicine -if worsening neurological condition or no improvement in confusion encephalopathy consider brain MRI in the morning. -ordered urine culture, BNP, procalcitonin, amylase, MRSA, strict intake and outtake, LDH 2. KELVIN secondary to fall/subarachnoid hemorrhage, alcohol intoxication/abuse, acute, present on admission -chloride 93, creatinine 1.29 last labs 04/22/2022 creatinine 0.87, GFR> 60, platelets 198. , GFR today 55 3. 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 hypertension, essential, exacerbated uncontrolled, present on admission -continue patient's lisinopril -labetalol as needed to bridge as needed 5. GERD, chronic, present on admission -continue Protonix 6. Thrombocytopenia, recurrent, acute, present on admission -platelets today 108, last known platelets on 04/22/2022 198, platelets for hospitalization 02/2022 62-78 -if platelets drop below 100 order transfusion Code status:Full Surrogate decision maker: Margarita spouse COVID PCR: Negative DVT/VTE prophylaxis: No medication due to subarachnoid hemorrhage-SCDs only Disposition: Patient admitted to acute care, due to secondary KELVIN likely alcohol withdrawal from intoxication thrombocytopenia, expected length of stay greater than 2 midnights I have utilized all available immediate resources to obtain, update, or review the patient's current medications. Exception-the patient is not eligible for medication reconciliation; the patient is in an emergent medical situation were delaying treatment would jeopardize the patient's health. I confirmed that the patient's advanced care plan is present, Code status is documented and/or surrogate decision maker is listed in the patient's medical record. I have personally reviewed patient's chart notes from PCP, specialists, diagnostic imaging, and laboratory, Time Spent With Patient Critical Care time: I spent a total of [] minutes of critical care time on this patient's care today; this time is exclusive of procedural time. Quality VTE Deep Vein Thrombosis/Pulmonary Embolism Present on Admission: No
[2022-09-26 23:06] LABS: Add Manual Diff / Slide Review NO; Basophils Absolute Auto 0 /uL (0-100); Basophils Percent Auto 0.6 % (0-2); Eosinophils Absolute Auto 100 /uL (0-450); Eosinophils Percent Auto 1.6 % (2-4); Hematocrit 40.8 % (41-53); Lymphocytes Absolute Auto 800 /uL (1100-4500); Lymphocytes Percent Auto 17.8 % (25-40); Mean Corpuscular HGB Conc 34.2 % (30-36); Mean Corpuscular Hemoglobin 34.2 PG (26-34); Monocytes Absolute Auto 600 /uL (0-900); Monocytes Percent Auto 13.8 % (3-14); Neutrophils Absolute Auto 2900 /uL (1500-7000); Neutrophils Percent Auto 66.2 % (50-75); Platelet Count 92 X10^3/uL (150-400); Red Blood Cell Count 4.08 X10^6/uL (4.5-5.9); Red Cell Distribution Width 13.9 % (11.6-14.8); White Blood Cell Count 4.3 X10^3/uL (4.5-11.0)
[2022-09-26] MEDS: SODIUM CHLORIDE 0.9% 1,000 ML 60 ML IV (23:10)
[2022-09-26] MEDS: chlordiazePOXIDE 25 MG CAPSULE 50 MG PO (23:14)
[2022-09-26 23:17] LABS: Ammonia (NH3) < 9 umol/L (9-30)
[2022-09-26 23:22] LABS: Amylase 44 U/L (30-110); Lactate (Lactic Acid) 1.3 mmol/L (0.7-2.1)
--- NOTE | 2022-09-26 23:30 | PC.NURSE ---
Pt. admitted to room 208 by NR. VERO, Pt. confused & restless. Already pulled out his IV access. C/O headache rated 3-4 but declined Tylenol. Tried to orient his to his room & reminded to call for help if he needed to use the urinal or BSC. Will cont. POc & monitor.
[2022-09-26 23:32] LABS: NT-proBNP (BNP-Adult 18+) 396 pg/mL (<450)
[2022-09-26 23:36] LABS: Troponin I < 0.012 ng/mL (0.01-0.034)
[2022-09-26 23:51] LABS: Lactate Dehydrogenase 213 U/L (120-246)
[2022-09-26] MEDS: ACETAMINOPHEN 325 MG TABLET 650 MG PO (23:54)
[2022-09-26 23:56] LABS: TSH w/ Reflex to FT4 1.91 uIU/mL (0.47-4.68)
[2022-09-27] VITALS (12 sets, daily range): BP systolic 87–147; BP diastolic 43–79; PULSE 69–96; RESP 16–17; TEMP 36.6–37.1; O2SAT 95–97
[2022-09-27 00:07] LABS: Influenza A - CEPHEID Flu A NEGATIVE (NEGATIVE); Influenza B - CEPHEID Flu B NEGATIVE (NEGATIVE)
[2022-09-27 00:20] LABS: Respiratory Syncytial Virus Not Detected (Not Detect)
[2022-09-27] MEDS: MAGNESIUM SULFATE 4 GM/100 ML PIGGYBACK IV (01:07)
[2022-09-27 04:22] LABS: Add Manual Diff / Slide Review NO; Basophils Absolute Auto 0 /uL (0-100); Basophils Percent Auto 0.9 % (0-2); Eosinophils Absolute Auto 100 /uL (0-450); Eosinophils Percent Auto 2.8 % (2-4); Hematocrit 40.5 % (41-53); Hemoglobin 13.9 g/dL (13.5-17.5); Lymphocytes Absolute Auto 1300 /uL (1100-4500); Lymphocytes Percent Auto 28.7 % (25-40); Mean Corpuscular HGB Conc 34.3 % (30-36); Mean Corpuscular Hemoglobin 34.5 PG (26-34); Mean Corpuscular Volume 100.5 fL (80-100); Monocytes Absolute Auto 700 /uL (0-900); Monocytes Percent Auto 14.5 % (3-14); Neutrophils Absolute Auto 2400 /uL (1500-7000); Neutrophils Percent Auto 53.1 % (50-75); Platelet Count 95 X10^3/uL (150-400); Red Blood Cell Count 4.04 X10^6/uL (4.5-5.9); Red Cell Distribution Width 13.9 % (11.6-14.8); White Blood Cell Count 4.5 X10^3/uL (4.5-11.0)
[2022-09-27 04:28] LABS: Alanine Aminotransferase 111 IU/L (<50); Albumin 4.1 g/dL (3.5-5.0); Albumin Globulin Ratio 1.3 (1.0-2.8); Alkaline Phosphatase 48 U/L (38-126); Aspartate Aminotransferase 136 IU/L (17-59); BUN Creatinine Ratio 16.7 (6-22); Bilirubin Total 1.7 mg/dL (0.2-1.3); Blood Urea Nitrogen 16 mg/dL (9-20); Calcium 8.3 mg/dL (8.4-10.2); Carbon Dioxide 28 mmol/L (22-32); Chloride 96 mmol/L (98-107); Cholesterol 189 mg/dL (140-199); Estimated Glomerular Filt Rate > 60 mL/min (>60); Globulin 3.1 g/dL (1.7-4.1); Glucose 92 mg/dL (80-110); HDL Cholesterol 72 mg/dL (40-60); HEMOLYSIS < 15 (0-50); LDL Cholesterol Calculated 101 mg/dL (<100); Potassium 3.6 mmol/L (3.4-5.1); Sodium 136 mmol/L (137-145); Total Protein 7.2 g/dL (6.3-8.2); Triglycerides 78 mg/dL (35-150)
[2022-09-27 04:39] LABS: Troponin I 0.013 ng/mL (0.01-0.034)
--- NOTE | 2022-09-27 06:04 | PC.NURSE ---
Patient sound asleep now snoring lightly. Notified MELVINA Lopez regarding his dose of Librium @ 0600. Order received to hold 0600 dose of Librium. Pt. slept most of night no S&S of any alcohol withdrawal. Will cont. POC & monitor.
--- NOTE | 2022-09-27 09:00 | DI.CT.S_ITS ---
PROCEDURE: CT ABDOMEN PANCREATIC PROTOCOL INDICATIONS: comparison cystic lesion, pancreatic head inflamm TECHNIQUE: After the administration of intravenous contrast, 3 mm thick pancreatic-phase images acquired from the diaphragm to the iliac crests. 3 mm thick coronal and sagittal reformats were performed. For radiation dose reduction, the following was used: automated exposure control, adjustment of mA and/or kV according to patient size. COMPARISON: [facility], US, US ABDOMEN LIMITED, 03/01/2022, 17:05. [facility], CT, CT ABDOMEN PELVIS W CON, 03/01/2022, 17:28. [facility], CT, CT ABDOMEN PANCREATIC PROTOCOL, 06/28/2022, 11:33. FINDINGS: Image quality: Excellent. Lung bases: Lung bases are clear. Right medial fat containing Bochdalek hernia. Heart size is normal. Pancreas: Enhances uniformly. No cyst or mass demonstrated. No pancreatic ductal dilatation. No peripancreatic fluid collection. Other solid organs: Liver is normal in size. Hepatic steatosis. No focal lesion. Gallbladder not significantly distended. There is increased conspicuity of the gallbladder wall. Question trace pericholecystic fluid. Biliary system is non dilated. Spleen is normal in size and enhancement. No adrenal nodules. Kidneys are normal in size and enhancement, without hydronephrosis. Peritoneum and bowel: Unenhanced bowel loops demonstrate normal wall thickness and caliber. No free fluid or air. Nodes and vessels: No retroperitoneal or mesenteric adenopathy by size criteria. Aorta and inferior vena cava are normal in size. Moderate plaque. Plaque at the celiac and SMA origins. There is plaque in the mid SMA. Bones: No suspicious bony lesions. No vertebral body compression fractures. Miscellaneous: No ventral hernias. IMPRESSION: 1. No pancreatic cyst or mass demonstrated. No peripancreatic fluid collection. 2. Question trace pericholecystic fluid. Increased conspicuity of the gallbladder wall which could be due to enhancement. Recommend correlation for cholecystitis. This could be further evaluated with gallbladder ultrasound or HIDA scan. Dictated by: Garfield Harris M.D. on 09/27/2022 at 11:09 Approved by: Garfield Harris M.D. on 09/27/2022 at 11:19
--- NOTE | 2022-09-27 09:23 | PC.NURSE ---
Day shift: Pt back in room from procedure at approx 0915. He has no complaints. Eating breakfast and drinking some coffee. Will continue to monitor. Call light in reach and bed alarm is on.
--- NOTE | 2022-09-27 09:45 | PT.IIE ---
Surgical History (Last Reviewed 09/27/22 @ 06:01 by SALOMON BurtonFLORINDA) S/P total hip arthroplasty Status post colonoscopy Status post radical cystoprostatectomy Medical History (Last Reviewed 09/27/22 @ 06:01 by SALOMON BurtonFLORINDA) Alcoholic pancreatitis Combined hyperlipidemia Concussion Essential tremor Falls frequently Fatty liver GERD (gastroesophageal reflux disease) Intraparenchymal hemorrhage of brain Right fibular fracture Physical Therapy Inpatient Evaluation/Re-Eval M1 PT/OT-IP Prior Functional Status Start: 09/27/22 12:01 Freq: NEEDED Status: Active Protocol: Document 09/27/22 09:45 AB (Rec: 09/27/22 12:14 AB [id number]) Medical Review Prior Functional Status Medical History Reviewed Yes Communication able to make needs known Mobility and Gait pt stated that he is modified independent with all mobilities and ambulation using a SPC but occasionally ambulated without AD indoors Social History Household Members spouse Living Arrangements House Number of Floors (Floors) One Floor Number of Stairs To Enter/Railing? 2 steps without rails to enter : has L side wall Home Environment Standard Height Toilet,Walk in Shower Home Equipment Front Wheel Walker,Straight Cane M2 PT-IP Current Condition Start: 09/27/22 12:01 Freq: NEEDED Status: Active Protocol: Document 09/27/22 09:45 AB (Rec: 09/27/22 12:14 AB [email or web address]) Physical Therapy Current Condition Current Condition Evaluation Date 09/27/22 Treatment Diagnosis syncope; s/p fall; subacrachnoid hemorrhage; difficulty in walking Onset Date 09/26/22 M3 PT-IP Subjective Start: 09/27/22 12:01 Freq: NEEDED Status: Active Protocol: Document 09/27/22 09:45 AB (Rec: 09/27/22 12:14 AB [email or web address]) Subjective Physical Therapy Visit Type Type Initial Evaluation Visit Start Time 09:45 Visit Stop Time 10:15 Total Visit Minutes 30 Number of PATIENT RELATIONS DIRECTOR Visits 0 Physical Therapy Visit Comments Patient Comments agreeable to do PT Therapy Pain Assessment Pain Present Pain Present Denied Pain M4 PT-IP Mobility and Gait Start: 09/27/22 12:01 Freq: NEEDED Status: Active Protocol: Document 09/27/22 09:45 AB (Rec: 09/27/22 12:14 AB [id number]) PT-Transfer Assessment Sit to and From Stand Sit to and from Stand Contact Guard Assistance,1 Person Assistance,Use of Upper Extremities Equipment Transfer Assistive Device Gait Belt,Front Wheeled Walker Orthotic/Prosthetic Devices or Brace: No Transfers Transfer Destination Chair Transfer Technique ambulated Transfer Ability Level of Assist Contact Guard Assistance, Minimal Assistance,1 Person Assistance,Use of Upper Extremities Comments Mobility Comments Pt admitted s/p fall due to syncopal episode. pt stated that he has h/o falls and stated that he just blacks out . BP monitored. BP in supine: 140/77. completed supine to sit SBA and cues. able to sit on EOB SBA. BP in sittin/78. completed sit to stand CGA. BP in standing : 92/43. c/o blurry vision and tolerated ~ 1 1/2 minutes of standing and had to sit down. BP checked again in sittin/71. pt completed sit to stand CGA and ambulated in room using FWW ~ 10 ft CGA to min A and cues. presents with increase forward trunk flexion with shuffling gait. pt agreed to sit on the chair. BP checked sitting after ambulation: 133/72. positioned pt on the chair. call light and table placed within reach. Gait Assessment Gait Gait Assistance Required: Contact Guard Assist,Minimum Assistance Distance (Feet) 10 Able to Maintain Weight Bearing Status Yes During Gait Assistive Devices Assistive Device Gait Belt,Front Wheeled Walker Orthotic/Prosthetic Devices or Brace: No Gait Deviations General Gait Pattern Antalgic,Decreased Stride Length,Decreased Feet Clearance,Flexed Trunk Factors Limiting Gait Function Factors Limiting Gait Function Decreased Activity Tolerance, Decreased Strength,Difficulty Following Directions,Limited Range of Motion,Pain,Poor Balance,Poor Safety Awareness PT-Balance Assessment Sitting Balance and Reactions Static Sitting Balance Ability Good Dynamic Sitting Balance Ability Fair Standing Balance and Reactions Static Standing Balance Ability Fair Dynamic Standing Balance Ability Fair Device Used FWW M5 PT-IP Objective Assessments Start: 09/27/22 12:01 Freq: NEEDED Status: Active Protocol: Document 09/27/22 09:45 AB (Rec: 09/27/22 12:14 AB [id number]) Orientation Orientation/Cognition Level of Alertness Alert Orientation Name,Place,Situation Language Function Ability Hard of Hearing Safety Awareness Decreased Safety Awareness Memory Description Short Term Impaired Gross Range of Motion Lower Extremity ROM Assessment Within Functional Limits Strength Lower Extremity Strength Hip 4-/5 Knee 4-/5 Muscle Tone Muscle Tone WNL Yes M6 PT-IP Treatment Start: 09/27/22 12:01 Freq: NEEDED Status: Active Protocol: Document 09/27/22 09:45 AB (Rec: 09/27/22 12:14 AB [id number]) Physical Therapy Treatment Education Education Provided Safety M7 PT-IP Assessment and Plan Start: 09/27/22 12:01 Freq: NEEDED Status: Active Protocol: Document 09/27/22 09:45 AB (Rec: 09/27/22 12:14 AB [id number]) PT Summary Assessment and Plan Potential Rehabilitation Potential Fair Status of Condition at Evaluation Unstable Summary Impairments Pain,ROM,Strength,Balance, Coordination,Sensation,Tone, Cognition,Bed Mobility, Transfers,Gait,Activity Tolerance Assessment Summary pt requiring CGA to min A with mobility but unable to tolerate much activity with decrease in BP during standing to 92/43 from a sitting BP of 147/78. c/o blurry vision during standing. pt plans to go home and spouse will be able to assist per pt. will continue to assess progress. Goals Bed Mobility Goal Independent Transfer Goal Independent,Front Wheeled Walker Gait Goal Independent,Front Wheel Walker Gait Distance 100 Other Goals improve ambulation using SPC 150 ft SBA up/down 2 steps L wall+SPC SBA Days to Meet Goals 10 Frequency of Treatment Frequency Of Treatment Once a Day Treatment Plan Physical Therapy Treatment Plan Bed Mobility Training,Transfer Training,Gait Training, Therapeutic Exercise,Balance Retraining,Discharge Planning, Hot or Cold Pack,Neuromuscular Re-ed,Coordination Retraining ,Manual Therapy Precautions Other Precautions falls; orthostatic hypotension Recommendations To Nursing Amount of Assist Needed 1 Person Assist Discharge Recommendations PT Discharge Recommendations Home with Assistance, Outpatient PT Transportation Needs at Discharge Private Vehicle,Wheelchair/ Cabulance
--- NOTE | 2022-09-27 10:11 | P.PN_ITS ---
Subjective Subjective Date Patient Seen: 09/27/22 Interval history: Patient denies headache, fever, chills, chest pain, shortness of breath, vision changes, nausea, vomiting, abdominal pain. He feels well, more oriented today than yesterday. Oversedated with librium overnight, mild tremulousness and tongue fasciculations this morning, will continue prn ativan with CIWA protocol. Exam Vital Signs (past 8 hours): - 09/27/22 04:10 09/27/22 04:10 09/27/22 08:00 Temperature 98.3 F 98.7 F Pulse Rate 72 80 Pulse Rate [Orthostatic Lying] Pulse Rate [Orthostatic Sitting] Pulse Rate [Orthostatic Standing] Respiratory Rate 17 16 Blood Pressure 145/79 H 136/78 Blood Pressure [Orthostatic Lying] Blood Pressure [Orthostatic Sitting] Blood Pressure [Orthostatic Standing] Pulse Oximetry 97 97 96 Oxygen Delivery Method Room Air Oxygen Flow Rate 0 0 09/27/22 09:00 Temperature Pulse Rate Pulse Rate [Orthostatic Lying] 91 H Pulse Rate [Orthostatic Sitting] 93 H Pulse Rate [Orthostatic Standing] 96 H Respiratory Rate Blood Pressure Blood Pressure [Orthostatic Lying] 140/77 Blood Pressure [Orthostatic Sitting] 147/78 H Blood Pressure [Orthostatic Standing] 92/43 L Pulse Oximetry Oxygen Delivery Method Oxygen Flow Rate Oxygen Delivery Method Room Air Oxygen Flow Rate 0 Narrative Exam Narrative: GENERAL: Well-appearing, well-nourished and in no acute distress. HEENT:,EOMI, pupils reactive, face symmetric, moist mucous membranes noted bruising and abrasion CARDIOVASCULAR: Regular rate and rhythm without murmurs, rubs or gallops. RESPIRATORY: Breath sounds equal bilaterally, no wheezes rales or rhonchi. ABDOMEN: Soft, nontender.? Normoactive bowel sounds all 4 quadrants.? No guarding or rebound. EXTREMITIES: Normal range of motion, no clubbing or edema.? Neurovascularly intact NEUROLOGICAL: Alert and oriented to person, place, and month / year. No focal deficits. SKIN: Warm, dry, no laceration, no petechiae, no rashes or lesions-with the exception of eyes noted above.. Objective Labs Result Diagrams: 09/27/22 04:08 09/27/22 04:08 Labs: Laboratory Results - last 24 hr 09/26/22 09/26/22 09/26/22 15:22 15:22 15:22 WBC 6.3 RBC 4.38 L Hgb 15.1 Hct 44.4 MCV 101.3 H MCH 34.5 H MCHC 34.0 RDW 13.7 Plt Count 108 L Neut % (Auto) 44.4 L Lymph % (Auto) 38.8 King % (Auto) 13.2 Eos % (Auto) 3.0 Baso % (Auto) 0.6 Neut # (Auto) 2800 Lymph # (Auto) 2400 King # (Auto) 800 Eos # (Auto) 200 Baso # (Auto) 0 Sodium 139 Potassium 3.5 Chloride 93 L Carbon Dioxide 28 BUN 16 Creatinine 1.29 H Estimated GFR 55 L BUN/Creatinine Ratio 12.4 Glucose 108 Lactate Calcium 9.2 Magnesium Total Bilirubin 1.0 AST 195 H ALT 133 H Alkaline Phosphatase 54 Ammonia Lactate Dehydrogenase Total Creatine Kinase 102 CK-MB (CK-2) 0.96 CK-MB (CK-2) Rel Index 0.9 L Troponin I < 0.012 NT-Pro-B Natriuret Pep Total Protein 8.6 H Albumin 4.9 Globulin 3.7 Albumin/Globulin Ratio 1.3 Triglycerides Cholesterol LDL Cholesterol, Calc HDL Cholesterol Amylase Lipase 92 TSH Urine Color Urine Appearance Urine pH Ur Specific [place] Urine Protein Urine Glucose (UA) Urine Ketones Urine Occult Blood Urine Nitrate Urine Bilirubin Ur Bilirubin Confirm Urine Urobilinogen Ur Leukocyte Esterase Urine RBC Urine WBC Ur Squamous Epith Cells Urine Bacteria Hyaline Casts Ur Culture Indicated? Nasal Screen MRSA (PCR) Ethyl Alcohol 144 H SARS-CoV-2 (PCR) Influenza A (RT-PCR) Influenza B (RT-PCR) RSV (PCR) 09/26/22 09/26/22 09/26/22 17:14 18:14 22:48 WBC RBC Hgb Hct MCV MCH MCHC RDW Plt Count Neut % (Auto) Lymph % (Auto) King % (Auto) Eos % (Auto) Baso % (Auto) Neut # (Auto) Lymph # (Auto) King # (Auto) Eos # (Auto) Baso # (Auto) Sodium Potassium Chloride Carbon Dioxide BUN Creatinine Estimated GFR BUN/Creatinine Ratio Glucose Lactate Calcium Magnesium 1.0 L Total Bilirubin AST ALT Alkaline Phosphatase Ammonia Lactate Dehydrogenase Total Creatine Kinase CK-MB (CK-2) CK-MB (CK-2) Rel Index Troponin I NT-Pro-B Natriuret Pep Total Protein Albumin Globulin Albumin/Globulin Ratio Triglycerides Cholesterol LDL Cholesterol, Calc HDL Cholesterol Amylase Lipase TSH Urine Color Yellow Urine Appearance Clear Urine pH 5.0 Ur Specific [place] 1.025 Urine Protein 1+ H Urine Glucose (UA) Negative Urine Ketones Trace H Urine Occult Blood Trace-lysed Urine Nitrate Negative Urine Bilirubin 1+ H Ur Bilirubin Confirm Negative Urine Urobilinogen 1.0 Ur Leukocyte Esterase Negative Urine RBC 1-5/hpf Urine WBC None seen Ur Squamous Epith Cells 0-1 /hpf Urine Bacteria None seen Hyaline Casts 1-5/lpf Ur Culture Indicated? Cult not indicated Nasal Screen MRSA (PCR) Ethyl Alcohol SARS-CoV-2 (PCR) Negative Influenza A (RT-PCR) Influenza B (RT-PCR) RSV (PCR) 09/26/22 09/26/22 09/26/22 22:48 22:48 22:48 WBC 4.3 L RBC 4.08 L Hgb 14.0 Hct 40.8 L MCV 100.0 MCH 34.2 H MCHC 34.2 RDW 13.9 Plt Count 92 L Neut % (Auto) 66.2 D Lymph % (Auto) 17.8 L D King % (Auto) 13.8 Eos % (Auto) 1.6 L Baso % (Auto) 0.6 Neut # (Auto) 2900 Lymph # (Auto) 800 L King # (Auto) 600 Eos # (Auto) 100 Baso # (Auto) 0 Sodium Potassium Chloride Carbon Dioxide BUN Creatinine Estimated GFR BUN/Creatinine Ratio Glucose Lactate Calcium Magnesium Total Bilirubin AST ALT Alkaline Phosphatase Ammonia < 9 L Lactate Dehydrogenase Total Creatine Kinase CK-MB (CK-2) CK-MB (CK-2) Rel Index Troponin I NT-Pro-B Natriuret Pep 396 Total Protein Albumin Globulin Albumin/Globulin Ratio Triglycerides Cholesterol LDL Cholesterol, Calc HDL Cholesterol Amylase Lipase TSH Urine Color Urine Appearance Urine pH Ur Specific [place] Urine Protein Urine Glucose (UA) Urine Ketones Urine Occult Blood Urine Nitrate Urine Bilirubin Ur Bilirubin Confirm Urine Urobilinogen Ur Leukocyte Esterase Urine RBC Urine WBC Ur Squamous Epith Cells Urine Bacteria Hyaline Casts Ur Culture Indicated? Nasal Screen MRSA (PCR) Ethyl Alcohol SARS-CoV-2 (PCR) Influenza A (RT-PCR) Influenza B (RT-PCR) RSV (PCR) 09/26/22 09/26/22 09/26/22 22:48 22:48 22:48 WBC RBC Hgb Hct MCV MCH MCHC RDW Plt Count Neut % (Auto) Lymph % (Auto) King % (Auto) Eos % (Auto) Baso % (Auto) Neut # (Auto) Lymph # (Auto) King # (Auto) Eos # (Auto) Baso # (Auto) Sodium Potassium Chloride Carbon Dioxide BUN Creatinine Estimated GFR BUN/Creatinine Ratio Glucose Lactate Calcium Magnesium Total Bilirubin AST ALT Alkaline Phosphatase Ammonia Lactate Dehydrogenase Total Creatine Kinase CK-MB (CK-2) CK-MB (CK-2) Rel Index Troponin I NT-Pro-B Natriuret Pep Total Protein Albumin Globulin Albumin/Globulin Ratio Triglycerides Cholesterol LDL Cholesterol, Calc HDL Cholesterol Amylase Lipase TSH 1.91 Urine Color Urine Appearance Urine pH Ur Specific [place] Urine Protein Urine Glucose (UA) Urine Ketones Urine Occult Blood Urine Nitrate Urine Bilirubin Ur Bilirubin Confirm Urine Urobilinogen Ur Leukocyte Esterase Urine RBC Urine WBC Ur Squamous Epith Cells Urine Bacteria Hyaline Casts Ur Culture Indicated? Nasal Screen MRSA (PCR) Ethyl Alcohol SARS-CoV-2 (PCR) Influenza A (RT-PCR) Flu a negative Influenza B (RT-PCR) Flu b negative RSV (PCR) Not detected 09/26/22 09/26/22 09/26/22 22:48 22:48 22:48 WBC RBC Hgb Hct MCV MCH MCHC RDW Plt Count Neut % (Auto) Lymph % (Auto) King % (Auto) Eos % (Auto) Baso % (Auto) Neut # (Auto) Lymph # (Auto) King # (Auto) Eos # (Auto) Baso # (Auto) Sodium Potassium Chloride Carbon Dioxide BUN Creatinine Estimated GFR BUN/Creatinine Ratio Glucose Lactate 1.3 Calcium Magnesium Total Bilirubin AST ALT Alkaline Phosphatase Ammonia Lactate Dehydrogenase 213 Total Creatine Kinase CK-MB (CK-2) CK-MB (CK-2) Rel Index Troponin I < 0.012 NT-Pro-B Natriuret Pep Cancelled Total Protein Albumin Globulin Albumin/Globulin Ratio Triglycerides Cholesterol LDL Cholesterol, Calc HDL Cholesterol Amylase 44 Lipase TSH Urine Color Urine Appearance Urine pH Ur Specific [place] Urine Protein Urine Glucose (UA) Urine Ketones Urine Occult Blood Urine Nitrate Urine Bilirubin Ur Bilirubin Confirm Urine Urobilinogen Ur Leukocyte Esterase Urine RBC Urine WBC Ur Squamous Epith Cells Urine Bacteria Hyaline Casts Ur Culture Indicated? Nasal Screen MRSA (PCR) Ethyl Alcohol SARS-CoV-2 (PCR) Influenza A (RT-PCR) Influenza B (RT-PCR) RSV (PCR) 09/27/22 09/27/22 09/27/22 04:08 04:08 04:08 WBC 4.5 RBC 4.04 L Hgb 13.9 Hct 40.5 L MCV 100.5 H MCH 34.5 H MCHC 34.3 RDW 13.9 Plt Count 95 L Neut % (Auto) 53.1 Lymph % (Auto) 28.7 King % (Auto) 14.5 H Eos % (Auto) 2.8 Baso % (Auto) 0.9 Neut # (Auto) 2400 Lymph # (Auto) 1300 King # (Auto) 700 Eos # (Auto) 100 Baso # (Auto) 0 Sodium 136 L Potassium 3.6 Chloride 96 L Carbon Dioxide 28 BUN 16 Creatinine 0.96 Estimated GFR > 60 BUN/Creatinine Ratio 16.7 Glucose 92 Lactate Calcium 8.3 L Magnesium 2.0 Total Bilirubin 1.7 H AST 136 H ALT 111 H Alkaline Phosphatase 48 Ammonia Lactate Dehydrogenase Total Creatine Kinase CK-MB (CK-2) CK-MB (CK-2) Rel Index Troponin I 0.013 NT-Pro-B Natriuret Pep Total Protein 7.2 Albumin 4.1 Globulin 3.1 Albumin/Globulin Ratio 1.3 Triglycerides 78 Cholesterol 189 LDL Cholesterol, Calc 101 H HDL Cholesterol 72 H Amylase Lipase TSH Urine Color Urine Appearance Urine pH Ur Specific [place] Urine Protein Urine Glucose (UA) Urine Ketones Urine Occult Blood Urine Nitrate Urine Bilirubin Ur Bilirubin Confirm Urine Urobilinogen Ur Leukocyte Esterase Urine RBC Urine WBC Ur Squamous Epith Cells Urine Bacteria Hyaline Casts Ur Culture Indicated? Nasal Screen MRSA (PCR) Ethyl Alcohol SARS-CoV-2 (PCR) Influenza A (RT-PCR) Influenza B (RT-PCR) RSV (PCR) 09/27/22 05:34 WBC RBC Hgb Hct MCV MCH MCHC RDW Plt Count Neut % (Auto) Lymph % (Auto) King % (Auto) Eos % (Auto) Baso % (Auto) Neut # (Auto) Lymph # (Auto) King # (Auto) Eos # (Auto) Baso # (Auto) Sodium Potassium Chloride Carbon Dioxide BUN Creatinine Estimated GFR BUN/Creatinine Ratio Glucose Lactate Calcium Magnesium Total Bilirubin AST ALT Alkaline Phosphatase Ammonia Lactate Dehydrogenase Total Creatine Kinase CK-MB (CK-2) CK-MB (CK-2) Rel Index Troponin I NT-Pro-B Natriuret Pep Total Protein Albumin Globulin Albumin/Globulin Ratio Triglycerides Cholesterol LDL Cholesterol, Calc HDL Cholesterol Amylase Lipase TSH Urine Color Urine Appearance Urine pH Ur Specific [place] Urine Protein Urine Glucose (UA) Urine Ketones Urine Occult Blood Urine Nitrate Urine Bilirubin Ur Bilirubin Confirm Urine Urobilinogen Ur Leukocyte Esterase Urine RBC Urine WBC Ur Squamous Epith Cells Urine Bacteria Hyaline Casts Ur Culture Indicated? Nasal Screen MRSA (PCR) Negative for mrsa Ethyl Alcohol SARS-CoV-2 (PCR) Influenza A (RT-PCR) Influenza B (RT-PCR) RSV (PCR) PFSH Medical History Alcoholic pancreatitis Combined hyperlipidemia Concussion Essential tremor Falls frequently Fatty liver GERD (gastroesophageal reflux disease) Intraparenchymal hemorrhage of brain Right fibular fracture Surgical History S/P total hip arthroplasty Status post colonoscopy Status post radical cystoprostatectomy Family History Father Prostate cancer Kidney problem Mother Old age Social History household members: spouse Smoking Status: Former smoker Tobacco: How many years used: 50 second hand exposure: No alcohol intake: current substance use type: does not use Assessment & Plan Assessment & Plan narrative: Carlos Jansen ?is a 82-year-old male history of acid reflux on omeprazole, chronic alcohol use, frequent falls, frequent syncope, orthostatic hypotension, es sential hypertension, 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 Last admit fall with head injury on 03/01/2022 Patient admitted for ground level fall resulting in head injury/subarachnoid hemorrhage, encephalopathy, ETOH intoxication, KELVIN. 1. ground level fall resulting in head injury/subarachnoid hemorrhage, encephalopathy, acute, present on admit -GCS 14, NH 0, today encephalopathy is improved. -CTA negative for PE -face CT left lateral periorbital/frontal temporal soft tissue injury without fracture -chest x-ray negative, C-spine negative for acute process -Reviewed personally his head CT There are two linear areas in the right frontoparietal region with minor adjacent edema consistent with posttraumatic subarachnoid hemorrhage. 2. Small ovoid focus of hyperdensity in the left temporal lobe cortex suggesting subarachnoid hemorrhage, less likely parenchymal contusion. 3. There is a chronic hyperdensity in the right frontal subcortical white matter consistent with a vascular anomaly. 4. Left temporal subcutaneous hematoma without underlying fracture. Repeat head CT unchanged 4 hours later. Consult in ED per Dr. Martinez:Dr. Hsieh, neurosurgery states does not need repeat head CTs unless changing exam.? Hold aspirin for 1 week. -noted in Cardiology notes 06/07/2022 the patient had a history of SVT and tachycardia with rates greater than 200 unknown etiology-placed on tele for possible cardiac etiology of syncope. 2. KELVIN secondary to fall/subarachnoid hemorrhage, alcohol intoxication/abuse, acute, present on admission Cr 1.29 improved to 0.96 today. 3 Alcohol abuse with alcohol withdrawal and acute alcoholic hepatitis. - continue ativan per CIWA protocol for now, oversedated with 50 of librium overnight. - AST / ALT improving but will continue to trend, bilirubin 1.7 today as well, no indication for steroids. 4. hypertension, ssential, exacerbated uncontrolled, present on admission - continue patient's lisinopril 5. GERD, chronic, present on admission - continue PPI 6. Thrombocytopenia, recurrent, acute, present on admission -platelets today 95, likely chronic in setting of EtOH use. Will continue to monitor for now, even with SDH bleed appeared stable on CT and likely no active bleeding. Code status:Full Surrogate decision maker: Margarita spouse COVID PCR: Negative DVT/VTE prophylaxis: No medication due to subarachnoid hemorrhage-SCDs only Disposition: Remains inpatient, will obtain PT/OT consultations to determine appropriate discharge location. Time Spent With Patient Critical Care time: I spent a total of [] minutes of critical care time on this patient's care today; this time is exclusive of procedural time. Quality VTE Deep Vein Thrombosis/Pulmonary Embolism Present on Admission: No
[2022-09-27] MEDS: FOLIC ACID 1 MG TABLET PO (10:20)
[2022-09-27] MEDS: lisinopriL 10 MG TABLET PO (10:20)
[2022-09-27] MEDS: THIAMINE 100 MG TABLET PO (10:20)
[2022-09-27] MEDS: MULTIVITAMIN 1 TABLET 1 TAB PO (10:20)
--- NOTE | 2022-09-27 11:23 | DIET.CONS ---
Dietary Consultation Note Admission Date: 09/26/2022 20:52 Assessment: 82 y/o M admitted after ground level fall. Rd consulted d/t ETOH use and BMI. Admission weight of 72.6kg with BMI of 22.3 is low for age (moderate malnutrition). Though another weight on the same day brings his BMI to 26 would not be an indicator for malnutrition. He denies any noticeable weight loss. Currently 3.4kg under UBW per his report. ETOH abuse with withdrawal (severe malnutrition). urine was + for ketones Diet recall indicates adequate intake most days. Skips breakfast, has adequate portions at lunch and dinner. ETOH reported as 6oz on weekends and none on weekdays. Nutrition focused physical exam indicates mild depressed right jewish (left injured from fall), mild interosseous depression (moderate malnutrition). No indications in clavicle, acromion process or shoulders. Ht: 180.34 cm Wt: 87.5 kg BMI: 26 UBW: 90.9kg reported Last BM: 09/26/22 (09/26/22 21:02) MNA: 10 Jairo Score: 20 Diet: 09/27/22 Breakfast Heart Healthy Diet Diet Modifications: Nutrition Percent Meal Consumed 50% 09/27/22 09:42 Labs: RBC 4.04 X10^6/uL (4.5-5.9) L 09/27/22 04:08 Hgb 13.9 g/dL (13.5-17.5) 09/27/22 04:08 Hct 40.5 % (41-53) L 09/27/22 04:08 Creatinine 0.96 mg/dL (0.66-1.25) 09/27/22 04:08 Lactate 1.3 mmol/L (0.7-2.1) 09/26/22 22:48 NT-Pro-B Natriuret Pep 396 pg/mL (<450) 09/26/22 22:48 NT-Pro-B Natriuret Pep Cancelled 09/26/22 22:48 Nutrition Diagnosis: Acute on chronic moderate protein calorie malnutrition r/t ETOH abuse aeb mild signs of muscle wasting, ETOH withdrawal, and diet recall indicating excessive ETOH intake on weekends. -The patient is at much higher risk for medical and surgical complications because of his malnutrition.? This increases the difficulty and complexity of medical and surgical interventions and increases the chances of poor outcomes such as morbidity and mortality. Interventions: Provided MNT for ETOH and impact on nutritional status. Rec offering ONS is PO is <50% at meals. EER: 3033-2911 kcals (25kcal/kg per BMI) 114-130g PRO (1.3-1.5g/kg per malnutrition) Monitoring/Evaluations: PO, weight Electronically Signed by: Katelin Whitman 09/27/22 11:23 Clinical Dietitian [address] [id number]
--- NOTE | 2022-09-27 11:47 | OT.IP.EVAL ---
Past Medical History (Last Reviewed 09/27/22 @ 06:01 by DONTA Burton) Alcoholic pancreatitis Combined hyperlipidemia Concussion Essential tremor Falls frequently Fatty liver GERD (gastroesophageal reflux disease) Intraparenchymal hemorrhage of brain Right fibular fracture Surgical History (Last Reviewed 09/27/22 @ 06:01 by DONTA Burton) S/P total hip arthroplasty Status post colonoscopy Status post radical cystoprostatectomy Occupational Therapy Inpatient Evaluation/Re-Eval M1 PT/OT-IP Prior Functional Status Start: 09/27/22 12:01 Freq: NEEDED Status: Active Protocol: Document 09/27/22 12:25 [facility] (Rec: 09/27/22 13:08 [facility] [id number]) Medical Review Prior Functional Status Medical History Reviewed Yes Communication able to make needs known Mobility and Gait pt stated that he is modified independent with all mobilities and ambulation using a SPC but occasionally ambulated without AD indoors Activities of Daily Living and IADL's Pt states needs assist with his socks and shoes at times due to his back pain. Social History Household Members spouse Living Arrangements House Number of Floors (Floors) One Floor Number of Stairs To Enter/Railing? 2 steps without rails to enter : has L side wall Home Environment Standard Height Toilet,Walk in Shower Home Equipment Front Wheel Walker,Straight Cane M2 OT-IP Current Condition Start: 09/27/22 12:34 Freq: Status: Active Protocol: Document 09/27/22 12:25 [facility] (Rec: 09/27/22 13:08 [facility] [id number]) Occupational Therapy Current Condition Current Condition Evaluation Date 09/27/22 Treatment Diagnosis Subrachnoid hemorrhage, GLF Diagnosis Onset Date 09/26/22 M3 OT- IP Subjective and Pain Start: 09/27/22 12:34 Freq: Status: Active Protocol: Document 09/27/22 12:25 [facility] (Rec: 09/27/22 13:08 [facility] [id number]) OT- Subjective Occupational Therapy Visit Type Type Initial Evaluation Visit Start Time 11:47 Visit Stop Time 12:12 Total Visit Minutes 25 Occupational Therapy Visit Comments Patient Comments Pt agreed to get up for OT. Pt 's son in the room. Patient/Caregiver Goals To go home. OT Pain Assessment Pain When Pain Assessed At Rest Pain Present Pain Present Denied Pain M4 OT- IP ADL's Start: 09/27/22 12:34 Freq: Status: Active Protocol: Document 09/27/22 12:25 [facility] (Rec: 09/27/22 13:08 [facility] [id number]) OT BVS-[id number] Comments OT Self-Feeding Comments NOt at meal time, pt states had no difficulty for feeding himself. OT ADL-Grooming Comments OT Grooming Comments Pt refusing to do and states to do so when his comes. OT ADL-Oral Care Comments Oral Care Comments NOt performed. OT ADL-Dressing General Eval Lower Body Dressing Ability Moderate Assistance Comments OT Dressing Comments Assist to laurie his socks over his left foot. Able to show pt sock aid and pt states does have one at home but does not use it. Pt now thinking to use it now. OT ADL-Toileting Comments OT Toileting Comments Pt having low BP in standing. OT ADL-Bathing Comments OT Bathing Comments Not at this time due to low BP . M5 OT- IP IADL's Start: 09/27/22 12:34 Freq: Status: Active Protocol: Document 09/27/22 12:25 [facility] (Rec: 09/27/22 13:08 [facility] [id number]) OT-Instrumental Activities of Daily Living Home Safety Awareness Awareness of Need for Assistance at Home Decreased Awareness Home Safety Comments At this time pt having decreased memory and would be best to have assist and supervision at home. M6 OT- IP Functional Cognition Start: 09/27/22 12:34 Freq: Status: Active Protocol: Document 09/27/22 12:25 [facility] (Rec: 09/27/22 13:08 [facility] [id number]) Cognitive Factors Limiting Selfcare Function Cognitive Ability Level of Alertness Alert Patient Orientation Name,Place,Situation Attention Span Ability Capable of Focused Attention, Capable of Sustained Attention Ability to Follow Commands Able to Follow One Step Commands with Increased Time, Able to Follow One Step Commands with Repetition Memory Description Short Term Impaired Cognitive Comments Cognitive Assessment Comments Pt able to follow commands but having decreased STM. Pt did not recall that he got up and walked with PT just prior. Pt will benefit from a formal cognitive assessment. OT- Vision and Hearing OT- Hearing Assessment OT- Hearing Assessment WFL OT- Vision Assessment Visual Acuity Glasses For Reading Occular Pursuits WFL Visual [place] WFL Diplopia Absent Vision Assessment Comments Pt's left eye turn inward at times. Pt complaining of double vision whe seeing distance but not for reading distances. M7 OT- IP Mobility and Balance Start: 09/27/22 12:34 Freq: Status: Active Protocol: Document 09/27/22 12:25 [facility] (Rec: 09/27/22 13:08 [facility] [id number]) OT-Transfer Assessment Sit to and From Stand Sit to and from Stand Standby Assistance Comments Mobility Comments Sitting BP 116/81, standing 88 /57, and sitting 117/72. Able to notify nursing and hospitalist of pt's low BP and double vision. OT- Balance Assessment Sitting Balance and Reactions Static Sitting Balance Ability Normal Dynamic Sitting Balance Ability Good Standing Balance and Reactions Static Standing Balance Ability Good M8 OT- IP Objective Assessments Start: 09/27/22 12:34 Freq: Status: Active Protocol: Document 09/27/22 12:25 [facility] (Rec: 09/27/22 13:08 [facility] [id number]) OT Gross Range of Motion Upper Extremity Range of Motion Assessment Within Functional Limits OT Strength Upper Extremity Strength Assessment Within Functional Limits Comments Strength Comments BUE WFL OT- Coordination Assessment Upper Extremity Finger to Nose Test Bilateral UE Impaired OT-Muscle Tone Assessment Muscle Tone WNL Yes M9 OT- IP Assessment and Plan Start: 09/27/22 12:34 Freq: Status: Active Protocol: Document 09/27/22 12:25 [facility] (Rec: 09/27/22 13:08 [facility] [id number]) OT Summary Assessment and Plan Potential Rehabilitation Potential Good Analytic Complexity at Evaluation Moderate Summary OT Impairments Functional Cognition, Functional Mobility,Grooming, Dressing,Toileting,Bathing, Toilet Transfers,Shower Transfers,Activity Tolerance Progress Towards Goals Slow Progress due to Medical Issues Assessment Summary Pt MOD complexity and pt having low BP when standing and double vision. Pt now needing more assist for LB dressing due to back pain. Pt states has a supportive to assist at home and son that can help at all. Goals Grooming Goal Independent Dressing Goal Independent Toileting Goal Independent Bathing Goal Independent Toilet Transfer Goal Independent Shower Transfer Goal Independent Days to Meet Goals 25 Frequency of Treatment Frequency Of Treatment Once a Day Treatment Plan OT Treatment Plan ADL Training,Functional Cognition Training,Functional Mobility,Patient/Family Education,Discharge Planning Discharge Recommendations OT Discharge Recommendations Home with 24/7 Assist Available Transportation Needs at Discharge Private Vehicle
--- NOTE | 2022-09-27 15:42 | CM.DANOTE ---
Initial DCP Assessment Note Pt is an 82 yo male, resident of [place], comes in after GLF resulting in head injury/subarachnoid hemorrhage, encephalopathy. Patient w/hx heavy alcohol use, BAL upon arrival to the ER was 144. PCP: Abbe Aguirre Payer: [facility] Met w/patient and his son at bedside, introduced role. Patient sitting up in the chair, explains he lives w/spouse and navigates independently at home. Patient admits to drinking whiskey and water throughout the day on the weekends, less throughout the week. Patient does not drink until blacking out. Spouse also drinks heavily. Patient is not forthcoming about the exact amount of alcohol he drinks. Patient denies having a problem with alcohol abuse and says he is considering cutting back but then states I like drinking and cannot find a reason to quit at this time Patient is eager to return home and denies needs from this MERCHANDISING CONSULTANT. PT has assessed and has cleared patient for return home w/his spouse to assist and outpatient PT recommended No further needs anticipated from the CM team although will follow closely in case needs arise DONTAE Denis Discharge Planning/Care Management CM Discharge Assessment Start: 09/27/22 15:39 Freq: Status: Active Protocol: Document 09/27/22 15:39 [facility] (Rec: 09/27/22 15:42 [facility] [id number]) Discharge Planning Assessment Assigned Mechanical Apprentice DONTAE Ferrell DPOA/Assigned Designee Name Margarita Jansen, spouse Contact Information [phone] Advance Directives? Yes Advance Directives on File No History Provided By Patient,Family Member,Medical Record Has Patient been admitted in last 30 No days? Comment Here 22 after GLF, discharged to [facility] Prior Living Arrangements House Household Members spouse Type of transporation used prior to Drives own vehicle admit Independent with ADL's Yes Is patient alert and oriented? Yes Needs Assistance With Home Chores / Shopping Comment Prefers using his trekking poles to ambulate (vs walker). Comment Home Barriers to Discharge No Comment Home Discharge Plan Home Transportation Arrangement Spouse will transport via private vehicle. Additional Comment Cont assess for possible HH PT Medicare Choice List Provided No Whiteboard Updated in Patient Room with Yes name and ext. # of Mechanical Apprentice
[2022-09-27] MEDS: SENNOSIDES 8.6 MG TABLET 17.2 MG PO (21:32)
[2022-09-27] MEDS: SODIUM CHLORIDE 0.9% FLUSH 10 ML IV (21:32)
[2022-09-28] VITALS (7 sets, daily range): BP systolic 87–148; BP diastolic 54–80; PULSE 72–110; RESP 17–18; TEMP 36.1–36.6; O2SAT 94–98
[2022-09-28 05:29] LABS: Add Manual Diff / Slide Review NO; Basophils Absolute Auto 0 /uL (0-100); Basophils Percent Auto 0.6 % (0-2); Eosinophils Absolute Auto 300 /uL (0-450); Eosinophils Percent Auto 5.2 % (2-4); Hematocrit 40.3 % (41-53); Hemoglobin 13.9 g/dL (13.5-17.5); Lymphocytes Absolute Auto 1200 /uL (1100-4500); Lymphocytes Percent Auto 24.3 % (25-40); Mean Corpuscular HGB Conc 34.4 % (30-36); Mean Corpuscular Hemoglobin 34.5 PG (26-34); Mean Corpuscular Volume 100.4 fL (80-100); Monocytes Absolute Auto 800 /uL (0-900); Monocytes Percent Auto 15.4 % (3-14); Neutrophils Absolute Auto 2700 /uL (1500-7000); Neutrophils Percent Auto 54.5 % (50-75); Platelet Count 98 X10^3/uL (150-400); Red Blood Cell Count 4.02 X10^6/uL (4.5-5.9); Red Cell Distribution Width 13.7 % (11.6-14.8); White Blood Cell Count 4.9 X10^3/uL (4.5-11.0)
[2022-09-28 05:41] LABS: Alanine Aminotransferase 82 IU/L (<50); Alkaline Phosphatase 45 U/L (38-126); Aspartate Aminotransferase 94 IU/L (17-59); BUN Creatinine Ratio 17.1 (6-22); Bilirubin Total 1.4 mg/dL (0.2-1.3); Blood Urea Nitrogen 19 mg/dL (9-20); Calcium 8.9 mg/dL (8.4-10.2); Carbon Dioxide 30 mmol/L (22-32); Chloride 97 mmol/L (98-107); Estimated Glomerular Filt Rate > 60 mL/min (>60); Glucose 108 mg/dL (80-110); HEMOLYSIS < 15 (0-50); Magnesium 1.7 mg/dL (1.6-2.3); Potassium 3.4 mmol/L (3.4-5.1); Sodium 136 mmol/L (137-145); Total Protein 7.1 g/dL (6.3-8.2)
--- NOTE | 2022-09-28 09:32 | P.DS_ITS ---
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 Patient denies nauseated or vomiting.? He has no weakness numbness or tingling.? But he is quite confused. Orientated to self and age but unable to recall where he is or why he is here. says he is normally very sharp in ED. patient denies any pain or discomfort upon admit, does complain of mild headache, no fever, body aches, chills, changes in vision, nausea, vomiting, diarrhea, no pain with eye movement, GCS 14, NIH 0. Patient's vitals upon admit temp 97.5?, BP 166/80, HR 77, R 20, O2 saturation 100% on room air. Patient's WBC and H&H are within normal limits, platelets 108, last platelet count was normal but did have noted platelet counts 62-78 following fall with head injury and hospital admit on 03/01/2022 chloride 93, creatinine 1.29 last labs 04/22/2022 creatinine 0.87, GFR> 60, platelets 198. , GFR today Moss 55 initial troponin WNL, total protein 8.6, lipase WNL, ETOH 144, urinalysis was positive for ketones, protein, bili no culture completed, AST 195, ALC T1 33. CTA negative for PE, face CT left lateral periorbital/frontal temporal soft tissue injury without fracture, chest x-ray negative for any cardiopulmonary process, C-spine moderate to severe degenerative disc disease in the upper cervical region. Head CT There are two linear areas in the right frontoparietal region with minor adjacent edema consistent with posttraumatic subarachnoid hemorrhage. 2. Small ovoid focus of hyperdensity in the left temporal lobe cortex suggesting subarachnoid hemorrhage, less likely parenchymal contusion. 3. There is a chronic hyperdensity in the right frontal subcortical white matter consistent with a vascular anomaly. 4. Left temporal subcutaneous hematoma without underlying fracture. Repeat head CT unchanged 4 hours later. Consult in ED per Dr. Martinez:Dr. Hsieh, neurosurgery states does not need repeat head CTs unless changing exam.? Hold aspirin for 1 week.? Agrees with plan to observe overnight as patient has persistent confusion. Patient admitted for ground level fall resulting in head injury/subarachnoid hemorrhage, encephalopathy, ETOH intoxication. Reviewed last GI consultation 03/28/2022 Dr. Rose, hospitalization [phone] for fall and head injury, cardiology consult Dr. Philippe 06/07/2022, Dr. Macedo Internal Medicine 06/26/2022, carotid Doppler 03/03/2022, last echo 03/02/2022 EF 60-65%. ? ? ? Discharge Providers Provider Date of admission: 09/26/22 20:52 Discharge Date: 09/28/22 Primary care physician: Abbe Aguirre MD Consults: 09/26/22 21:25 Consult to Dietitian, Adult Routine Comment: Reason For Exam: ETOH use BMI 22.3 09/27/22 06:13 Consult to DENTAL THERAPIST - Procurement Engineer Routine Comment: ETOH abuse/Falls/safety DENTAL THERAPIST Consult needed for:: Community [facility] Res Need Substance Abuse Assess 09/27/22 07:43 Consult to Occupational Therapy Evaluate & Treat Comment: Physician Instructions: Evaluate and treat Consult to Physical Therapy Evaluate & Treat Comment: Physician Instructions: Evaluate and Treat Discharge provider: Cholo Winkler DO Summary Hospital Course Discharge Diagnosis: 1. ground level fall resulting in head injury/subarachnoid hemorrhage, acute metabolic encephalopathy, acute, present on admit 2. KELVIN secondary to fall/subarachnoid hemorrhage, alcohol intoxication/abuse, acute, present on admission 3 Alcohol abuse with alcohol withdrawal and acute alcoholic hepatitis. 4. hypertension, ssential, exacerbated uncontrolled, present on admission ?- continue patient's lisinopril 5. GERD, chronic, present on admission ?- continue PPI 6. Thrombocytopenia, recurrent, acute, present on admission -platelets today 95, likely chronic in setting of EtOH use. Will continue to monitor for now, even with SDH bleed appeared stable on CT and likely no active bleeding. Hospital Course: This is an 82-year-old male with past medical history of alcohol abuse, hypertension, GERD who was admitted with a small subarachnoid hemorrhage to [facility] after repeat head CT showed stable bleed. He was initially confused but gradually improved. He did show signs of alcohol withdrawal initially but was over-sedated with Librium and was continued on CIWA protocol without further need for medications shortly after admission. 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 Platelets were also low, but likely related to alcohol cessation. With stable bleed, despite plt <100, he was not transfused as it was presumed his bleeding has stopped. With cessation of alcohol his liver enzymes improved as did his platelets. His encephalopathy gradually improved and he was back to his baseline at the time of discharge. This was likely multifatorial in the setting of trauma with hemorrhage but also his alcohol abuse and withdrawal. He was also noted to have an KELVIN likely due to mild dehydration which quickly improved. He was discharged home, no changes are recommended to his home medications at the time of discharge. Time Spent with Patient Time spent: Greater than 30 minutes Exam Vital Signs (past 8 hours): - 09/28/22 05:00 09/28/22 05:31 09/28/22 08:00 Temperature 97.9 F 97.0 F L Pulse Rate 77 72 Respiratory Rate 18 17 Blood Pressure 137/76 142/80 H Pulse Oximetry 95 96 95 Oxygen Delivery Method Room Air Oxygen Flow Rate 0 Oxygen Delivery Method Room Air Oxygen Flow Rate 0 Narrative Exam Narrative: GENERAL: Well-appearing, well-nourished and in no acute distress. HEENT:,EOMI, pupils reactive, face symmetric, moist mucous membranes noted bruising and abrasion CARDIOVASCULAR: Regular rate and rhythm without murmurs, rubs or gallops. RESPIRATORY: Breath sounds equal bilaterally, no wheezes rales or rhonchi. ABDOMEN: Soft, nontender.? Normoactive bowel sounds all 4 quadrants.? No guarding or rebound. EXTREMITIES: Normal range of motion, no clubbing or edema.? Neurovascularly intact NEUROLOGICAL: Alert and oriented to person, place, and month / year. No focal deficits. SKIN: Warm, dry, no laceration, no petechiae, no rashes or lesions-with the exception of eyes noted above.. Objective Labs Result Diagrams: 09/28/22 05:07 09/28/22 05:07 Labs: Laboratory Results - last 24 hr 09/28/22 09/28/22 05:07 05:07 WBC 4.9 RBC 4.02 L Hgb 13.9 Hct 40.3 L MCV 100.4 H MCH 34.5 H MCHC 34.4 RDW 13.7 Plt Count 98 L Neut % (Auto) 54.5 Lymph % (Auto) 24.3 L Highland % (Auto) 15.4 H Eos % (Auto) 5.2 H Baso % (Auto) 0.6 Neut # (Auto) 2700 Lymph # (Auto) 1200 [place] # (Auto) 800 Eos # (Auto) 300 Baso # (Auto) 0 Sodium 136 L Potassium 3.4 Chloride 97 L Carbon Dioxide 30 BUN 19 Creatinine 1.11 Estimated GFR > 60 BUN/Creatinine Ratio 17.1 Glucose 108 Calcium 8.9 Magnesium 1.7 Total Bilirubin 1.4 H AST 94 H ALT 82 H Alkaline Phosphatase 45 Total Protein 7.1 PFSH Medical History Alcoholic pancreatitis Combined hyperlipidemia Concussion Essential tremor Falls frequently Fatty liver GERD (gastroesophageal reflux disease) Intraparenchymal hemorrhage of brain Right fibular fracture Surgical History S/P total hip arthroplasty Status post colonoscopy Status post radical cystoprostatectomy Family History Father Prostate cancer Kidney problem Mother Old age Social History household members: spouse Smoking Status: Former smoker Tobacco: How many years used: 50 second hand exposure: No alcohol intake: current substance use type: does not use Discharge Plan Discharge Plan Patient Disposition: Home Provider Discharge Comment: You were admitted to the hospital with a small bleed in your head as a result of your fall. Repeat imaging was stable and you improved over time. No additional imaging is needed at this time. You also had symptoms of mild withdrawal from alcohol, and liver testing showed impairment due to your drinking. I would recommend stopping alcohol, or severely limiting intake at this time. Follow up imaging was obtained given prior findings on your pancreas, which appears to have gone away. Please follow up with your primary care provider to review hospitalization in the next couple of weeks if possible. Discharge orders & Medications Prescriptions: Continued omeprazole 20 mg capsule,delayed release(DR/EC) 20 mg PO DAILY famotidine 40 mg tablet 40 mg PO DAILY Label Comments: take 1 tablet by mouth once daily Follow up/Referrals: Abbe Aguirre MD [Primary Care Provider] - 2 Weeks Diet/Activity/Treatments Diet: Diet as Tolerated Activity: As tolerated Visit Report/Discharge Packet Stand Alone Forms: Patient Portal/API, Stroke Signs & Symptoms Discharge Data Primary Care Provider: Abbe Aguirre Quality VTE Deep Vein Thrombosis/Pulmonary Embolism Present on Admission: No
[2022-09-28] MEDS: lisinopriL 10 MG TABLET PO (09:35)
[2022-09-28] MEDS: FOLIC ACID 1 MG TABLET PO (09:36)
[2022-09-28] MEDS: MULTIVITAMIN 1 TABLET 1 TAB PO (09:36)
[2022-09-28] MEDS: THIAMINE 100 MG TABLET PO (09:36)
[2022-09-28] MEDS: POTASSIUM CHLORIDE 20 MEQ TAB 40 MEQ PO (09:37)
[2022-09-28] MEDS: SODIUM CHLORIDE 0.9% FLUSH 10 ML IV (09:44)
[2022-09-28] MEDS: MAGNESIUM CHLORIDE 64 MG TABLET 128 MG PO (09:46)
--- NOTE | 2022-09-28 10:59 | PT.IPTN ---
Current Diagnoses Nontraumatic subarachnoid hemorrhage, unspecified (09/26/22) Physical Therapy Treatment Note M2 PT-IP Current Condition Start: 09/27/22 12:01 Freq: NEEDED Status: Active Protocol: Document 09/27/22 09:45 AB (Rec: 09/27/22 12:14 AB [id number]) Physical Therapy Current Condition Current Condition Evaluation Date 09/27/22 Treatment Diagnosis syncope; s/p fall; subacrachnoid hemorrhage; difficulty in walking Onset Date 09/26/22 M3 PT-IP Subjective Start: 09/27/22 12:01 Freq: NEEDED Status: Active Protocol: Document 09/28/22 10:40 AW (Rec: 09/28/22 10:59 AW [id number]) Subjective Physical Therapy Visit Type Type Treatment Note Visit Start Time 10:15 Visit Stop Time 10:40 Total Visit Minutes 25 Number of PORTRAIT ARTIST Visits 0 Physical Therapy Visit Comments Patient Comments agreeable to do PT Patient Goals Hoping to go home today. M4 PT-IP Mobility and Gait Start: 09/27/22 12:01 Freq: NEEDED Status: Active Protocol: Document 09/28/22 10:40 AW (Rec: 09/28/22 10:59 AW [id number]) PT-Bed Mobility Assessment Supine to Sit Supine to Sit Standby Assistance Sit to Supine Sit to Supine Standby Assistance PT-Transfer Assessment Sit to and From Stand Sit to and from Stand Contact Guard Assistance,1 Person Assistance,Use of Upper Extremities Equipment Transfer Assistive Device Gait Belt,Front Wheeled Walker Orthotic/Prosthetic Devices or Brace: No Transfers Transfer Destination Bed Transfer Technique ambulated with FWW Transfer Ability Level of Assist Contact Guard Assistance Comments Mobility Comments Pt was lying in bed as PT arrived. Orthostatic BP as follows: Supine - 148/76 HR 80 Sitting - 133/79 HR 82 Standing - 96/85 HR 110 after one minute (pt reporting double vision) Standing - 87/54 HR 104 after 3 minutes (double vision) Standing - 84/54 HR 125 after walking and stairs (double vision) Sitting - 111/66 HR 106 Pt sat up EOB SBA and needed CGA to stand. Pt reported double vision in standing which did not resolve throughout treatment session. Pt stated he was otherwise asymptomatic. Pt ambulated in the halls with FWW and w/c follow. He completed stair assessment and returned to the room with no further complaints other than the double vision. BP remained low in standing but began to recover in sitting. Pt returned to supine SBA. Informed RN and MD of positive orthostatic hypotension. Gait Assessment Gait Gait Assistance Required: Contact Guard Assist Distance (Feet) 250 Assistive Devices Assistive Device Gait Belt,Front Wheeled Walker Orthotic/Prosthetic Devices or Brace: No Gait Deviations General Gait Pattern Antalgic,Decreased Stride Length,Decreased Feet Clearance,Flexed Trunk Factors Limiting Gait Function Factors Limiting Gait Function Decreased Activity Tolerance, Decreased Strength,Difficulty Following Directions,Limited Range of Motion,Pain,Poor Balance,Poor Safety Awareness Comments Gait Comments Pt tends to push the walker too far forward. Was able to correct in response to cues but lapsed back to poor proximity quickly. Stair Climbing Assessment Evaluation Level of Assist On Stairs Contact Guard Assistance, Minimal Assistance,1 Person Assistance Devices Stair Climbing Assistive Devices Left Railing,Right Railing Technique/Endurance Stair Climbing Direction Ascend and Descend Stair Climbing Technique Step to Step Number of Steps Climbed 3 Stair Climbing Set # Repetitions (reps) 1 PT-Balance Assessment Sitting Balance and Reactions Static Sitting Balance Ability Normal Dynamic Sitting Balance Ability Good Standing Balance and Reactions Static Standing Balance Ability Fair Dynamic Standing Balance Ability Fair Device Used FWW M5 PT-IP Objective Assessments Start: 09/27/22 12:01 Freq: NEEDED Status: Active Protocol: Document 09/27/22 09:45 AB (Rec: 09/27/22 12:14 AB [id number]) Orientation Orientation/Cognition Level of Alertness Alert Orientation Name,Place,Situation Language Function Ability Hard of Hearing Safety Awareness Decreased Safety Awareness Memory Description Short Term Impaired Gross Range of Motion Lower Extremity ROM Assessment Within Functional Limits Strength Lower Extremity Strength Hip 4-/5 Knee 4-/5 Muscle Tone Muscle Tone WNL Yes M6 PT-IP Treatment Start: 09/27/22 12:01 Freq: NEEDED Status: Active Protocol: Document 09/28/22 10:40 AW (Rec: 09/28/22 10:59 AW [id number]) Physical Therapy Treatment Education Education Provided Safety Other Treatments Other Treatment Performed Educated extensively on safety awareness for transfers and household mobility. Recommended use of walker at this time and pt agreed. M7 PT-IP Assessment and Plan Start: 09/27/22 12:01 Freq: NEEDED Status: Active Protocol: Document 09/28/22 10:40 AW (Rec: 01/14/23 10:59 AW [id number]) PT Summary Assessment and Plan Potential Status of Condition at Evaluation Unstable Summary Impairments Pain,ROM,Strength,Balance, Coordination,Sensation,Tone, Cognition,Bed Mobility, Transfers,Gait,Activity Tolerance Progress Towards Goals Progressing Toward Goals Assessment Summary Pt needing CGA with all mobility using FWW. He continues to have positive orthostatic hypotension but denies symptoms other than double vision. Educated pt to be aware of vision concerns as a sign to be extra cautious with mobility. PT communicated BP findings to RN and hospitalist physician. Pt planst to go home and spouse will be able to assist per pt. Goals Bed Mobility Goal Independent Transfer Goal Independent,Front Wheeled Walker Gait Goal Independent,Front Wheel Walker Gait Distance 100 Other Goals improve ambulation using SPC 150 ft SBA up/down 2 steps L wall+SPC SBA Days to Meet Goals 10 Frequency of Treatment Frequency Of Treatment Once a Day Treatment Plan Physical Therapy Treatment Plan Bed Mobility Training,Transfer Training,Gait Training, Therapeutic Exercise,Balance Retraining,Discharge Planning, Hot or Cold Pack,Neuromuscular Re-ed,Coordination Retraining ,Manual Therapy Precautions Other Precautions falls; orthostatic hypotension Recommendations To Nursing Amount of Assist Needed Standby Assistance Discharge Recommendations PT Discharge Recommendations Home with Assistance, Outpatient PT Transportation Needs at Discharge Private Vehicle
--- NOTE | 2022-09-28 12:03 | CM.DPNOTE ---
Discharge Planning Note: Patient is anxious to discharge home to family. Orders are in for DC. He will call family to arrange for transportation. Plan: Discharge home to family today. Lily Fajardo RN/DCP
[2022-10-04 15:19] LABS: Albumin 3.9 g/dL (3.5-5.0); Albumin Globulin Ratio 1.2 (1.0-2.8); Globulin 3.2 g/dL (1.7-4.1)
== END 2022-09-28 13:00 | disposition home or self-care (01) | DRG 85 ==
LOC: ED 20:50 → AC 09-27 07:26
PROVIDERS: Emergency Medicine; Admitting Provider Nurse Practitioner Family; Emergency Provider Emergency Medicine; PCP Student in an Organized Health Care Education/Training Program; Visit Provider Nurse Practitioner Family
DX: S06.6X1A Traumatic subarachnoid hemorrhage with loss of consciousness of 30 minutes or less, initial encounter (principal); G93.41 Metabolic encephalopathy; N17.9 Acute kidney failure, unspecified; F10.139 Alcohol abuse with withdrawal, unspecified; R40.2413 Glasgow coma scale score 13-15, at hospital admission; F10.129 Alcohol abuse with intoxication, unspecified; I10 Essential (primary) hypertension; K21.9 Gastro-esophageal reflux disease without esophagitis; K70.10 Alcoholic hepatitis without ascites; W18.30XA Fall on same level, unspecified, initial encounter; Y90.6 Blood alcohol level of 120-199 mg/100 ml; Z87.891 Personal history of nicotine dependence; Z20.822 Contact with and (suspected) exposure to COVID-19
CPT/HCPCS: 36415; 70450; 70486; 71045; 71275; 72125; 74160; 80053; 80061; 80320; 81001; 82140; 82150; 82550; 82553; 82962; 83605; 83615; 83690; 83735; 83880; 84443; 84484; 85025; 87086; 87502; 87634; 87635; 87797; 93005; 93010; 97116; 97163; 97166; 97530; 99285; C9803; J3475; Q9967

== ENCOUNTER 2023-06-15 14:21 | Inpatient (IN) | payer MEDICARE, SELFPAY ==
[2022-10-10 15:05] VITALS: BMI 22.3
[2023-06-15] VITALS (18 sets, daily range): BP systolic 121–185; BP diastolic 62–98; PULSE 70–84; RESP 16–24; TEMP 36.2–37.1; O2SAT 93–100; BMI 28.5
--- NOTE | 2023-06-15 10:15 | DI.MRI.S_ITS ---
PROCEDURE: MR HEAD/BRAIN WO CON INDICATIONS: syncope vs seizure TECHNIQUE: Non-contrast axial T1 spin echo, axial T2 fast spin echo, sagittal and axial FLAIR, coronal T2 fast spin echo, axial gradient echo, axial diffusion and ADC through the brain. COMPARISON: [facility], CT, CT HEAD/BRAIN WO CON, 03/01/2022, 14:23. CT, CT ANGIO HEAD AND NECK, 03/03/2022, 13:08. [facility], CT, CT HEAD/BRAIN WO CON, 09/26/2022, 15:35. [facility], CT, CT HEAD/BRAIN WO CON, 09/26/2022, 19:25. [facility], CT, CT HEAD/BRAIN WO CON, 06/15/2023, 14:44. FINDINGS: Image quality: Excellent. CSF spaces: Ventricles appear symmetric in size and shape. Basal cisterns are patent. There is a small extra-axial fluid collection in the left frontal parietal area, measuring 3 mm, compatible with a late subacute subdural hematoma. Brain: There is a tiny focus of hyperintensity in the diffusion weighted images, with equivocal abnormality on ADC map. There is a focus of susceptibility artifact in the right frontal lobe, correlating with a hyperdensity on CT, likely secondary to dystrophic calcification or a vascular anomaly such as a cavernous hemangioma. No mass effect. There is cerebral volume loss for age. There are mild periventricular and deep white matter chronic small vessel ischemic changes. Brainstem appears normal. Normal intravascular flow voids are present. Skull and face: Calvarial bone marrow is normal in signal. Orbits are normal. Sinuses: Sinuses and mastoids are clear. IMPRESSION: 1. There is a small subacute left frontal parietal subdural hematoma. No mass effect or midline shift. 2. Possible small acute lacunar infarct/ischemia. 3. A focus of susceptibility artifact in the right frontal lobe correlating with a chronic hyperdense focus seen on CT. Differential diagnoses are dystrophic calcification versus vascular malformation such as a cavernous hemangioma. The result was discussed with Dr. Winkler. Dictated by: Mihir William M.D. on 06/16/2023 at 10:45 Approved by: Mihir William M.D. on 06/16/2023 at 11:09
--- NOTE | 2023-06-15 14:36 | DI.CT.S_ITS ---
PROCEDURE: CT HEAD/BRAIN WO CON INDICATIONS: fall/hit head TECHNIQUE: Noncontrast 4.5 mm thick angled axial sections acquired from the foramen magnum to the vertex, with coronal and sagittal reformats. For radiation dose reduction, the following was used: automated exposure control, adjustment of mA and/or kV according to patient size. COMPARISON: [facility], CT, CT HEAD/BRAIN WO CON, 09/26/2022, 19:25. FINDINGS: Image quality: Excellent. CSF spaces: Basal cisterns are patent. No extra-axial fluid collections. The ventricles are symmetric in size and shape. Brain: No intracranial bleeds or masses. Focus of hyperattenuation in the right frontal lobe is stable compared to 09/26/2022 and likely represents calcification. There is cerebral volume loss for age, with resultant ventricular and sulcal prominence. There are periventricular and deep white matter chronic small vessel ischemic changes. There is intracranial internal carotid artery atherosclerosis. Skull and face: Calvarium and visualized facial bones appear intact, without suspicious lesions. Bilateral lens replacements. Otherwise, the orbits are unremarkable. Sinuses: Visualized sinuses and mastoids are clear. IMPRESSION: 1. No acute intracranial abnormalities. 2. Stable chronic findings as described above. Dictated by: Miguel Martino M.D. on 06/15/2023 at 14:57 Approved by: Miguel Martino M.D. on 06/15/2023 at 15:00
--- NOTE | 2023-06-15 14:36 | DI.RAD.S_ITS ---
PROCEDURE: XR HIP W PEL IF DONE RT 2V INDICATIONS: fall/hip pain TECHNIQUE: AP pelvis with lateral view(s) of the right hip(s). COMPARISON: None. 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 The hardware appears intact without surrounding lucency or fracture. No fractures or dislocations. Pelvic ring appears intact. No suspicious bony lesions. Degenerative changes of the visualized lower lumbar spine and pubic symphysis. Soft tissues: The visualized bowel gas pattern is normal. No suspicious soft tissue calcifications. Surgical clips projecting over the pelvis. 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 No acute osseous abnormalities. Dictated by: Miguel Martino M.D. on 06/15/2023 at 15:42 Approved by: Miguel Martino M.D. on 06/15/2023 at 15:43
--- NOTE | 2023-06-15 14:36 | DI.CT.S_ITS ---
PROCEDURE: CT CERVICAL SPINE WO CON INDICATIONS: fall/hit head TECHNIQUE: Noncontrast 3 mm thick sections acquired from the skull base to the T4 level. Sagittal and coronal reformats were then constructed. For radiation dose reduction, the following was used: automated exposure control, adjustment of mA and/or kV according to patient size. COMPARISON: [facility], CT, CT CERVICAL SPINE WO CON, 09/26/2022, 15:35. FINDINGS: Image quality: Excellent. Bones: No fractures or dislocations. There are multilevel degenerative changes of the cervical spine with facet and uncovertebral arthropathy, disc height loss with degenerative endplate changes and spurring. Stable alignment of the lateral mass of C1 on C2. Visualized superior ribs are intact. Soft tissues: Prevertebral soft tissues are normal in thickness. No paravertebral hematomas. No apical pneumothoraces. Atherosclerotic vascular calcifications. IMPRESSION: No acute fracture or traumatic listhesis. Dictated by: Miguel Martino M.D. on 06/15/2023 at 15:01 Approved by: Miguel Martino M.D. on 06/15/2023 at 15:03
--- NOTE | 2023-06-15 14:38 | DI.RAD.S_ITS ---
PROCEDURE: XR CHEST 1V INDICATIONS: chest pain TECHNIQUE: One view of the chest was acquired. COMPARISON: [facility], CR, XR CHEST 1V, 09/26/2022, 15:31. FINDINGS: Surgical changes and devices: None. Lungs and pleura: Lungs are clear. No pleural effusions or pneumothorax. Mediastinum: Mediastinal contours appear normal. Heart size is normal. Bones and chest wall: No suspicious bony lesions. Overlying soft tissues appear unremarkable. IMPRESSION: No acute cardiopulmonary process. Dictated by: Miguel Martino M.D. on 06/15/2023 at 15:37 Approved by: Miguel Martino M.D. on 06/15/2023 at 15:41
[2023-06-15 15:21] LABS: Add Manual Diff / Slide Review NO; Basophils Absolute Auto 100 /uL (0-100); Basophils Percent Auto 2.2 % (0-2); Eosinophils Absolute Auto 300 /uL (0-450); Hematocrit 41.7 % (41-53); Hemoglobin 14.3 g/dL (13.5-17.5); Lymphocytes Absolute Auto 1400 /uL (1100-4500); Lymphocytes Percent Auto 40.8 % (25-40); Mean Corpuscular HGB Conc 34.3 % (30-36); Mean Corpuscular Hemoglobin 34.8 PG (26-34); Mean Corpuscular Volume 101.5 fL (80-100); Monocytes Absolute Auto 300 /uL (0-900); Neutrophils Absolute Auto 1300 /uL (1500-7000); Platelet Count 109 X10^3/uL (150-400); Red Blood Cell Count 4.11 X10^6/uL (4.5-5.9); Red Cell Distribution Width 13.7 % (11.6-14.8); White Blood Cell Count 3.4 X10^3/uL (4.5-11.0)
[2023-06-15 15:27] LABS: INR 1.2 (0.9-1.3); Prothrombin Time 13.4 SECONDS (10.1-12.7)
[2023-06-15 15:29] LABS: PTT Partial Thromboplastin Tim 27 SECONDS (26-36)
--- NOTE | 2023-06-15 15:30 | ED.FALL ---
HPI - Fall General Chief Complaint: Fall Stated Complaint: fall, head/hip injury, laceration on rt eyebrow Time Seen by Provider: 06/15/23 14:49 Source: patient Mode of arrival: Wheelchair History of Present Illness HPI Narrative: 82-year-old male with history of acid reflux presents by private vehicle for evaluation of head injury after a fall. states that they were walking into the movie theater when he began to get ?wobbly? and he fell. states that patient frequently has balance issues and he has fallen multiple times in the last several months. Patient is complaining of right hip pain. Related Data Previous Rx's Medication Instructions Recorded omeprazole 20 mg capsule,delayed 20 mg PO DAILY #90 caps 06/09/23 release Allergies Allergy/AdvReac Type Severity Reaction Status Date / Time No Known Allergies Allergy Verified 06/09/23 10:05 Review of Systems Review of Systems Narrative: CONSTITUTIONAL- Denies: fever, chills, fatigue HEENT- Denies: sore throat, nosebleed, vision changes RESPIRATORY- Denies: shortness of breath, cough, wheezing CARDIAC- Denies: chest pain, edema, orthopnea GI- Denies: abdominal pain, nausea, vomiting, constipation, diarrhea - Denies: frequency, dysuria, hematuria, flank pain MSK-reports: Right hip pain Denies: extremity pain, extremity swelling, joint swelling SKIN-reports: Laceration Denies: rash, itching, burn, swelling NEUROLOGICAL- Denies: headache, numbness, weakness, dizziness PSYCHIATRIC- Denies: anxiety, depression, suicidal ideation, homicidal ideation Patient History Medical History (Updated 06/20/23 @ 15:03 by Charmaine Alegria MD) Thrombocytopenia Macrocytosis Alcoholic pancreatitis GERD (gastroesophageal reflux disease) Combined hyperlipidemia Falls frequently Intraparenchymal hemorrhage of brain Essential tremor Fatty liver Concussion Right fibular fracture Surgical History Status post radical cystoprostatectomy Status post colonoscopy S/P total hip arthroplasty Family History Father Prostate cancer Kidney problem Mother Old age Social History household members: spouse Smoking Status: Former smoker Tobacco: How many years used: 50 second hand exposure: No alcohol intake: current substance use type: does not use Smoking Status: Former smoker alcohol intake frequency: a few times a week Substance Use Type: does not use Exam Initial Vital Signs Initial Vital Signs: Vital Signs Temperature 98.1 F 06/15/23 14:29 Pulse Rate 80 06/15/23 14:29 Respiratory Rate 18 06/15/23 14:29 Blood Pressure 121/62 06/15/23 14:29 Pulse Oximetry 96 06/15/23 14:29 Oxygen Delivery Method Room Air 06/15/23 14:29 Const: Awake, alert, frail Eyes: PERRL, EOMI, conjunctiva normal ENT: Atraumatic, dentition normal, mucous membranes moist Cardiac: regular rate, regular rhythm RESP/CHEST: Tenderness to palpation along R chest wall without crepitus or deformaty, breaths unlabored, clear bilaterally, no wheezing GI: Atraumatic, soft, nontender, nondistended, no rebound, no guarding MSK: Atraumatic, full range of motion, pulses equal Skin: Warm, Dry, stellate superficial laceration over R eyebrow Neuro: AO x2, CN II-XII grossly intact, moves all extremities Psych: Appropriate for current condition Course Course Course Narrative: Chronically and well-appearing patient with ground level fall and head trauma. reports multiple falls. We will order labs and imaging. Facial laceration repaired with dermabond. Orders Ordered: Acetaminophen (Acetaminophen 325 Mg Tablet) 650 mg PO Q6H PRN PRN Reason: Fever/Mild Pain (1-3) Last Admin: 06/20/23 14:36 Dose: 650 mg Documented By: GALLO Hydrocodone Bitart/Acetaminophen (Hydrocodone/Acet 5/325 Tablet) 1 tab PO Q4HR PRN PRN Reason: Pain, Moderate (4-6) Last Admin: 06/17/23 08:50 Dose: 1 tab Documented By: Admin: 06/16/23 02:27 Dose: 1 tab Documented By: AT Hydrocodone Bitart/Acetaminophen (Hydrocodone/Acet 10/325 Tablet) 1 tab PO Q4HR PRN PRN Reason: Pain, Severe (7-10) Aspirin (Aspirin Ec 81 Mg Tablet) 81 mg PO DAILY ANGEL Last Admin: 06/20/23 09:01 Dose: 81 mg Documented By: Admin: 06/19/23 09:25 Dose: 81 mg Documented By: Admin: 06/18/23 08:33 Dose: 81 mg Documented By: Admin: 06/17/23 08:51 Dose: 81 mg Documented By: JESSICA Atorvastatin Calcium (Atorvastatin 20 Mg Tablet) 40 mg PO BEDTIME [facility] Last Admin: 06/19/23 20:32 Dose: 40 mg Documented By: Admin: 06/18/23 20:29 Dose: 40 mg Documented By: Admin: 06/17/23 20:15 Dose: 40 mg Documented By: Admin: 06/16/23 20:30 Dose: 40 mg Documented By: AT Folic Acid (Folic Acid 1 Mg Tablet) 1 mg PO DAILY [facility] Last Admin: 06/20/23 09:01 Dose: 1 mg Documented By: Admin: 06/19/23 09:26 Dose: 1 mg Documented By: Admin: 06/18/23 08:34 Dose: 1 mg Documented By: Admin: 06/17/23 08:51 Dose: 1 mg Documented By: Admin: 06/16/23 09:08 Dose: 1 mg Documented By: LDV Gabapentin (Gabapentin 300 Mg Capsule) 300 mg PO TID [facility] Last Admin: 06/20/23 14:36 Dose: 300 mg Documented By: Admin: 06/20/23 09:00 Dose: 300 mg Documented By: Admin: 06/19/23 20:32 Dose: 300 mg Documented By: Admin: 06/19/23 15:17 Dose: 300 mg Documented By: Admin: 06/19/23 09:25 Dose: 300 mg Documented By: Admin: 06/18/23 20:28 Dose: 300 mg Documented By: Admin: 06/18/23 15:34 Dose: 300 mg Documented By: Admin: 06/18/23 08:33 Dose: 300 mg Documented By: Admin: 06/17/23 20:15 Dose: 300 mg Documented By: Admin: 06/17/23 15:21 Dose: 300 mg Documented By: JESSICA Levetiracetam (Levetiracetam 250 Mg Tablet) 500 mg PO BID [facility] Last Admin: 06/20/23 09:00 Dose: 500 mg Documented By: Admin: 06/19/23 20:32 Dose: 500 mg Documented By: Admin: 06/19/23 09:25 Dose: 500 mg Documented By: Admin: 06/18/23 20:28 Dose: 500 mg Documented By: Admin: 06/18/23 08:34 Dose: 500 mg Documented By: Admin: 06/17/23 20:15 Dose: 500 mg Documented By: Admin: 06/17/23 08:51 Dose: 500 mg Documented By: Admin: 06/16/23 20:30 Dose: 500 mg Documented By: AT Lidocaine (Lidocaine Patch 1 Each Adh..Patch) 1 each TOP DAILY [facility] Last Admin: 06/20/23 09:00 Dose: 1 each Documented By: Admin: 06/19/23 09:25 Dose: 1 each Documented By: Admin: 06/18/23 08:34 Dose: 1 each Documented By: Admin: 06/17/23 08:50 Dose: 1 each Documented By: Admin: 06/16/23 09:07 Dose: 1 each Documented By: Admin: 06/15/23 19:59 Dose: 1 each Documented By: AT Lidocaine (Remove Lidocaine Patch) 1 each TOP BEDTIME [facility] Last Admin: 06/19/23 21:05 Dose: 1 each Documented By: CT Lorazepam (Lorazepam 1 Mg Tablet) 0 mg PO CIWAPRN PRN; Protocol PRN Reason: Alcohol Withdrawal Midodrine (Midodrine Hcl 5 Mg Tablet) 2.5 mg PO 0600,1200,1800 [facility] Last Admin: 06/20/23 12:27 Dose: 2.5 mg Documented By: Admin: 06/20/23 06:14 Dose: 2.5 mg Documented By: Admin: 06/19/23 17:34 Dose: 2.5 mg Documented By: Admin: 06/19/23 13:21 Dose: 2.5 mg Documented By: JESSICA Multivitamins (Multivitamin 1 Tablet) 1 tab PO DAILY [facility] Last Admin: 06/20/23 09:01 Dose: 1 tab Documented By: Admin: 06/19/23 09:25 Dose: 1 tab Documented By: Admin: 06/18/23 08:34 Dose: 1 tab Documented By: Admin: 06/17/23 08:51 Dose: 1 tab Documented By: Admin: 06/16/23 09:08 Dose: 1 tab Documented By: LDV Naloxone HCl (Naloxone 0.4 Mg/Ml Vial) 0.2 mg IV Q2MIN PRN PRN Reason: Opiate Reversal Ondansetron HCl (Ondansetron 4 Mg/2 Ml Inj) 4 mg IV Q4HR PRN PRN Reason: Nausea And Vomiting Pantoprazole Sodium (Pantoprazole Dr 20 Mg Tablet) 40 mg PO 0700 [facility] Last Admin: 06/20/23 06:13 Dose: 40 mg Documented By: Admin: 06/19/23 06:06 Dose: 40 mg Documented By: Admin: 06/18/23 07:00 Dose: 40 mg Documented By: Admin: 06/17/23 06:09 Dose: 40 mg Documented By: Admin: 06/16/23 06:14 Dose: Not Given Documented By: AT Polyethylene Glycol (Polyethylene Glycol 3350 17 Gm Powd.Pack) 17 gm PO DAILY PRN PRN Reason: Constipation Potassium Chloride (Potassium Chloride 20 Meq Tab) 40 meq PO Q6H ANGEL Stop: 06/20/23 15:31 Last Admin: 06/20/23 10:16 Dose: 40 meq Documented By: GALLO Sennosides (Sennosides 8.6 Mg Tablet) 8.6 mg PO BID PRN PRN Reason: Constipation Discontinued Medications Dextrose (Dextrose 50 % In Water 25 Gm/50 Ml Syringe) 25 gm IV NOW ONE Stop: 06/15/23 17:33 Last Admin: 06/15/23 18:44 Dose: Not Given Documented By: LDV Enoxaparin Sodium (Enoxaparin 40 Mg/0.4 Ml Syringe) 40 mg SUBCUT DAILY [facility] Last Admin: 06/16/23 09:07 Dose: 40 mg Documented By: Admin: 06/15/23 20:00 Dose: 40 mg Documented By: AT Magnesium Sulfate (Magnesium Sulfate) 2 gm in 50 mls @ 150 mls/hr IV NOW ONE Stop: 06/15/23 16:07 Last Infusion: 06/15/23 16:30 Dose: Infused Documented By: KAYE Co-signed By: ARPAN Admin: 06/15/23 16:01 Dose: 150 mls/hr Documented By: KAYE Co-signed By: ARPAN Sodium Chloride (Normal Saline 0.9%) 1,000 mls @ 100 mls/hr IV CONT ANGEL Stop: 06/16/23 05:44 Last Infusion: 06/16/23 04:09 Dose: Infused Documented By: Admin: 06/15/23 17:56 Dose: 100 mls/hr Documented By: LDV Magnesium Sulfate (Magnesium Sulfate) 4 gm in 100 mls @ 25 mls/hr IV NOW ONE Stop: 06/15/23 21:31 Last Admin: 06/15/23 18:22 Dose: 25 mls/hr Documented By: LUDMILA Co-signed By: ANDREW Levetiracetam 1,000 mg/ Sodium (Chloride) 110 mls @ 440 mls/hr IV Q12H [facility] Last Infusion: 06/16/23 06:10 Dose: Infused Documented By: Admin: 06/16/23 05:38 Dose: 440 mls/hr Documented By: Infusion: 06/15/23 18:50 Dose: Infused Documented By: Admin: 06/15/23 17:53 Dose: 440 mls/hr Documented By: LDV Sodium Chloride (Normal Saline 0.9%) 1,000 mls @ 1,000 mls/hr IV BOLUS ONE Stop: 06/15/23 19:30 Last Infusion: 06/15/23 20:42 Dose: Infused Documented By: Admin: 06/15/23 18:50 Dose: 1,000 mls/hr Documented By: LDV Sodium Chloride (Normal Saline 0.9%) 1,000 mls @ 1,000 mls/hr IV BOLUS ONE Stop: 06/16/23 09:28 Last Admin: 06/16/23 09:05 Dose: 1,000 mls/hr Documented By: LDV Magnesium Sulfate (Magnesium Sulfate) 2 gm in 50 mls @ 25 mls/hr IV NOW ONE Stop: 06/20/23 11:46 Last Infusion: 06/20/23 12:27 Dose: Infused Documented By: GALLO Co-signed By: SAMMIE Admin: 06/20/23 10:16 Dose: 25 mls/hr Documented By: GALLO Co-signed By: KATTY Magnesium Sulfate (Magnesium Sulfate) 2 gm in 50 mls @ 25 mls/hr IV NOW ONE Stop: 06/20/23 13:59 Last Admin: 06/20/23 12:27 Dose: 25 mls/hr Documented By: GALLO Co-signed By: SAMMIE Thiamine HCl (Thiamine 100 Mg Tablet) 100 mg PO DAILY ANGEL Stop: 06/19/23 09:01 Last Admin: 06/19/23 09:25 Dose: 100 mg Documented By: Admin: 06/18/23 08:34 Dose: 100 mg Documented By: Admin: 06/17/23 08:51 Dose: 100 mg Documented By: Admin: 06/16/23 09:08 Dose: 100 mg Documented By: EMILEV Reevaluation(s) Reevaluation #1: Labs show slight worsening of chronically elevated liver enzymes. Patient's history does note alcohol use disorder with dependence. Alcohol level 189. CT shows stable probable calcification in the right frontal region of the brain, no other acute abnormalities identified. No acute fracture seen on hip x-ray. Patient initially intended to be discharged home, however just prior to departure from the emergency department nursing staff called my attention to the patient. He had an episode of unresponsiveness with eyes rolling back in his head and dry heaving that lasted at least 20 seconds per nursing. Uncertain etiology of patient's event, however not felt safe to be discharged home. states that he is not had a heart workup in quite some time and there is no recent echocardiogram. We will admit patient for syncope. Vital Signs Vital signs: Vital Signs - 8 hr 06/15/23 14:29 06/15/23 15:15 06/15/23 15:16 Temperature 98.1 F Pulse Rate 80 73 75 Respiratory Rate 18 Blood Pressure 121/62 Pulse Oximetry 96 94 94 Oxygen Delivery Method Room Air 06/15/23 15:16 06/15/23 15:30 06/15/23 15:30 Temperature Pulse Rate 74 Respiratory Rate 22 Blood Pressure 134/69 129/64 Pulse Oximetry 94 Oxygen Delivery Method 06/15/23 16:00 06/15/23 16:00 06/15/23 16:09 Temperature Pulse Rate 70 Respiratory Rate 24 Blood Pressure 138/68 152/69 H Pulse Oximetry 94 Oxygen Delivery Method Room Air 06/15/23 16:09 06/15/23 16:15 06/15/23 16:15 Temperature Pulse Rate 74 73 Respiratory Rate 23 19 Blood Pressure 142/67 H Pulse Oximetry 93 93 Oxygen Delivery Method Room Air 06/15/23 16:35 06/15/23 16:30 06/15/23 16:30 Temperature Pulse Rate 75 72 Respiratory Rate 20 24 Blood Pressure 132/69 132/69 Pulse Oximetry 94 93 Oxygen Delivery Method Room Air 06/15/23 16:40 06/15/23 16:40 06/15/23 16:45 Temperature Pulse Rate 83 72 Respiratory Rate 23 19 Blood Pressure 185/88 H Pulse Oximetry 94 96 Oxygen Delivery Method 06/15/23 16:45 Temperature Pulse Rate Respiratory Rate Blood Pressure 184/98 H Pulse Oximetry Oxygen Delivery Method MDM - Fall Differential Diagnosis Differential diagnosis: Likely syncope, compression fracture and concussion with loss of consciousness Condition is:: Inadequately Controlled Lab Data 06/20/23 05:32 06/20/23 05:32 Labs: Lab Results 06/15/23 Range/Units 15:12 WBC 3.4 L (4.5-11.0) X10^3/uL RBC 4.11 L (4.5-5.9) X10^6/uL Hgb 14.3 (13.5-17.5) g/dL Hct 41.7 (41-53) % MCV 101.5 H (80-100) fL MCH 34.8 H (26-34) PG MCHC 34.3 (30-36) % RDW 13.7 (11.6-14.8) % Plt Count 109 L (150-400) X10^3/uL Neut % (Auto) 39.0 L (50-75) % Lymph % (Auto) 40.8 H (25-40) % [place] % (Auto) 9.0 (3-14) % Eos % (Auto) 9.0 H (2-4) % Baso % (Auto) 2.2 H (0-2) % Neut # (Auto) 1300 L (0454-4817) /uL Lymph # (Auto) 1400 (6052-2170) /uL [place] # (Auto) 300 (0-900) /uL Eos # (Auto) 300 (0-450) /uL Baso # (Auto) 100 (0-100) /uL PT 13.4 H (10.1-12.7) SECONDS INR 1.2 (0.9-1.3) APTT 27 (26-36) SECONDS Sodium 133 L (137-145) mmol/L Potassium 3.4 (3.4-5.1) mmol/L Chloride 93 L (98-107) mmol/L Carbon Dioxide 27 (22-32) mmol/L BUN 12 (9-20) mg/dL Creatinine 1.14 (0.66-1.25) mg/dL Estimated GFR > 60 (>60) mL/min BUN/Creatinine Ratio 10.5 (6-22) Glucose 93 (80-110) mg/dL Calcium 8.7 (8.4-10.2) mg/dL Magnesium 1.0 L (1.6-2.3) mg/dL Total Bilirubin 0.8 (0.2-1.3) mg/dL AST 212 H (17-59) IU/L ALT 110 H (<50) IU/L Alkaline Phosphatase 44 (38-126) U/L Total Creatine Kinase 103 (55-170) U/L Troponin I < 0.012 (0.01-0.034) ng/mL Total Protein 7.5 (6.3-8.2) g/dL Albumin 4.4 (3.5-5.0) g/dL Globulin 3.1 (1.7-4.1) g/dL Albumin/Globulin Ratio 1.4 (1.0-2.8) Lipase 120 (23-300) U/L Hepatitis A IgM Ab Negative (Negative) Hep Bs Antigen Negative (Negative) Hep B Core IgM Ab Negative (Negative) Hepatitis C Antibody Non reactive (Non Reactive) Hep C Ab Signal/Cutoff Comment (.) Discharge Plan Departure Patient Disposition: Admitted as Observation Clinical Impression: Face lacerations, Fall, Altered mental status, Alcohol use disorder, moderate, dependence Admit Date/Time: 06/15/23 16:47 Admit Provider: Jono Newsome
[2023-06-15 15:33] LABS: Alanine Aminotransferase 110 IU/L (<50); Albumin 4.4 g/dL (3.5-5.0); Albumin Globulin Ratio 1.4 (1.0-2.8); Alkaline Phosphatase 44 U/L (38-126); Aspartate Aminotransferase 212 IU/L (17-59); BUN Creatinine Ratio 10.5 (6-22); Bilirubin Total 0.8 mg/dL (0.2-1.3); Blood Urea Nitrogen 12 mg/dL (9-20); Calcium 8.7 mg/dL (8.4-10.2); Carbon Dioxide 27 mmol/L (22-32); Chloride 93 mmol/L (98-107); Creatine Kinase 103 U/L (55-170); Estimated Glomerular Filt Rate > 60 mL/min (>60); Globulin 3.1 g/dL (1.7-4.1); Glucose 93 mg/dL (80-110); HEMOLYSIS < 15 (0-50); Lipase 120 U/L (23-300); Potassium 3.4 mmol/L (3.4-5.1); Sodium 133 mmol/L (137-145); Total Protein 7.5 g/dL (6.3-8.2)
[2023-06-15 15:43] LABS: Troponin I < 0.012 ng/mL (0.01-0.034)
[2023-06-15] MEDS: MAGNESIUM SULFATE 2 GM/50 ML PIGGYBACK IV (16:01)
--- NOTE | 2023-06-15 16:09 | PC.NURSE ---
Mag sulfate verified by second RN Annia Collier
--- NOTE | 2023-06-15 16:47 | PC.NURSE ---
1639: Reviewed patient discharge instructions. Patient ambulated up to wheelchair at bedside. Once in chair patient became unresponsive. Rapid response initiated and staff came in for assistance, including provider Raji. Pt was unresponsive for about 20 seconds. Pt denies any memory of the event.
--- NOTE | 2023-06-15 17:35 | DI.ECHO.S_ITS ---
[facility] +---------+ Hospital +---------+ : : [address] : [place] : : : : [id number] : : : : Phone: [phone] Echocardiogram Report + + :Name: OJ WONG Study Date: 06/17/2023 Height: 71 in : :[facility] ReadingLocation: Weight: 205 lb : : Gender: Male BSA: 2.1 m2 : :: 1940 Age: 82 yrs BP: 121/62 mmHg: :Reason For Study: SYNCOPE : :Ordering Physician: GUI, : :MATTHEW [place] Performed By: Christy Hernandez : :Referring: MATTHEW MESSER : + + Interpretation Summary The study quality was technically difficult. Overall poor visualization. IV contrast was used. The left ventricle is normal in size. Normal LV systolic function. The ejection fraction is estimated to be 60-65%. No significant change in LVEF from the previous study. The right ventricle is not well visualized. The right ventricle is grossly normal size. The right ventricular systolic function is normal. All the valves were not well visualized however no gross significant abnormalities seen. The IVC is of normal diameter and collapses greater than 50% with a sniff. This suggests a low right atrial pressure of 3 mm Hg. Procedure: A two-dimensional transthoracic echocardiogram with color flow and Doppler was performed. The study quality was technically difficult. Comparison is made with the echocardiogram of 03/03/2022. The patient was in sinus rhythm with heart rates between 66-77 bpm during the exam. Left Ventricle: The left ventricle is normal in size. Proximal septal thickening is noted. There is no thrombus. The ejection fraction is estimated to be 60-65%. There are no obvious focal wall motion abnormalities noted but poor endocardial definition reduces the sensitivity for the detection of such. MV E/A: 0.97. Diastolic function could not be accurately assessed due to unobtainable data. Right Ventricle: The right ventricle is not well visualized. The right ventricle is grossly normal size. The right ventricular systolic function is normal. Atria: The left atrium is not well visualized. Right atrial size is normal. The interatrial septum grossly appears intact with no obvious evidence for an atrial septal defect. Mitral Valve: There is mild mitral annular calcification. The mitral valve is not well visualized. There is no mitral regurgitation noted. Aortic Valve: The aortic valve is not well visualized. The aortic valve is mildly calcified. There is no aortic valve stenosis. No aortic regurgitation is present. Tricuspid Valve: The tricuspid valve is not well visualized. There is trace tricuspid regurgitation. Pulmonary artery pressures cannot be estimated because of the lack of a measurable TR jet velocity. Pulmonic Valve: The pulmonic valve is not well visualized. There is no pulmonic valvular regurgitation. Great Vessels: The aortic root is normal size. The ascending aorta could not be visualized. The IVC is of normal diameter and collapses greater than 50% with a sniff. This suggests a low right atrial pressure of 3 mm Hg. Pericardium/ Pleura There is no pericardial effusion. There is no pleural effusion. MMode/2D Measurements & Calculations LVIDd: 4.7 cm LVOT diam: 2.3 cm LVIDs: 3.5 cm Ao root diam: 3.6 cm FS: 25.1 % Ao Arch Diam (Prox Trans): 2.2 cm IVSd: 0.77 cm LVPWd: 0.88 cm LV james. diameter/BSA (cm/m^2): 2.2 LV sys. diameter/BSA (cm/m^2): 1.6 RA long axis: 4.8 cm TAPSE: 2.1 cm RA area: 15.6 cm2 RA vol: 42.5 ml RA : 20.0 ml/m2 IVC diam: 2.0 cm Doppler Measurements & Calculations Ao V2 max: 106.5 cm/sec MV E max nicolas: 62.4 cm/sec Ao V2 mean: 84.3 cm/sec MV A max nicolas: 64.4 cm/sec Ao max P.5 mmHg MV E/A: 0.97 Ao mean P.0 mmHg MV dec time: 0.23 sec Ao V2 VTI: 20.9 cm Reading Physician:10:24 AM
--- NOTE | 2023-06-15 17:41 | PM.HP.1 ---
History of Present Illness History of Present Illness Date Patient Seen: 06/15/23 Time Patient Seen: 19:16 Chief complaint: fall, head/hip injury, laceration on rt eyebrow Narrative: Carlos Jansen is an 82yo M with PMH of remote ICH, daily alcohol use, alcoholic pancreatitis, HLD, fatty liver, GERD, and chronic thrombocytopenia who presents with syncope. Patient's recounting the events as patient does not remember them. She states they were leaving the house to go to a play and on the way out of the door he was walking with his cane and he became wobbly and suddenly fell flat on his face hitting his right side. He did not fully lose consciousness and came back to his normal self after a couple minutes. He came to the ED and was going to be sent home, then had a similar episode where he went unresponsive and turned blue which then stopped. He states he doesn't remember both of these episodes happening. He drinks 3 glasses of 2 finger widths of whiskey daily. He has never had withdrawal seizures. Ethanol 189 in ED. He is only complaining of R-sided rib pain where he fell. He denies headache, dizziness, NV, CP, SOB, abd pain or diarrhea. [facility] Medical History (Updated 06/15/23 @ 18:51 by hCarmaine Alegria MD) Alcoholic pancreatitis Combined hyperlipidemia Concussion Essential tremor Falls frequently Fatty liver GERD (gastroesophageal reflux disease) Intraparenchymal hemorrhage of brain Macrocytosis Right fibular fracture Thrombocytopenia Surgical History S/P total hip arthroplasty Status post colonoscopy Status post radical cystoprostatectomy Family History Father Prostate cancer Kidney problem Mother Old age Social History household members: spouse Smoking Status: Former smoker Tobacco: How many years used: 50 second hand exposure: No alcohol intake: current substance use type: does not use Meds Home Medications and Allergies Home Medications Medication Instructions Recorded Confirmed Type omeprazole 20 mg capsule,delayed 20 mg PO DAILY #90 caps 06/09/23 06/09/23 Rx release Allergies Allergy/AdvReac Type Severity Reaction Status Date / Time No Known Allergies Allergy Verified 06/09/23 10:05 Review of Systems Review of Systems Narrative: All other systems reviewed with the patient and are negative unless otherwise stated. Exam Vital Signs (past 8 hours): - 06/15/23 14:29 06/15/23 15:15 06/15/23 15:16 Temperature 98.1 F Pulse Rate 80 73 75 Respiratory Rate 18 Blood Pressure 121/62 Pulse Oximetry 96 94 94 Oxygen Delivery Method Room Air 06/15/23 15:16 06/15/23 15:30 06/15/23 15:30 Temperature Pulse Rate 74 Respiratory Rate 22 Blood Pressure 134/69 129/64 Pulse Oximetry 94 Oxygen Delivery Method 06/15/23 16:00 06/15/23 16:00 06/15/23 16:09 Temperature Pulse Rate 70 Respiratory Rate 24 Blood Pressure 138/68 152/69 H Pulse Oximetry 94 Oxygen Delivery Method Room Air 06/15/23 16:09 06/15/23 16:15 06/15/23 16:15 Temperature Pulse Rate 74 73 Respiratory Rate 23 19 Blood Pressure 142/67 H Pulse Oximetry 93 93 Oxygen Delivery Method Room Air 06/15/23 16:35 06/15/23 16:30 06/15/23 16:30 Temperature Pulse Rate 75 72 Respiratory Rate 20 24 Blood Pressure 132/69 132/69 Pulse Oximetry 94 93 Oxygen Delivery Method Room Air 06/15/23 16:40 06/15/23 16:40 06/15/23 16:45 Temperature Pulse Rate 83 72 Respiratory Rate 23 19 Blood Pressure 185/88 H Pulse Oximetry 94 96 Oxygen Delivery Method 06/15/23 16:45 06/15/23 16:50 06/15/23 16:50 Temperature Pulse Rate 72 Respiratory Rate 21 Blood Pressure 184/98 H 157/84 H Pulse Oximetry 96 Oxygen Delivery Method 06/15/23 17:00 06/15/23 17:00 06/15/23 17:10 Temperature Pulse Rate 75 Respiratory Rate 20 Blood Pressure 140/68 137/66 Pulse Oximetry 96 Oxygen Delivery Method Room Air 06/15/23 17:10 Temperature Pulse Rate 72 Respiratory Rate 20 Blood Pressure Pulse Oximetry 95 Oxygen Delivery Method Room Air Oxygen Delivery Method Room Air Narrative Exam Narrative: GEN: no acute distress, right temporal scalp lac HEENT: moist mucous membranes, PERRL NECK: trachea midline, no JVD CV: regular rate and rhythm, no murmurs PULM: clear bilaterally ABD: soft, nontender, nondistended, no organomegaly EXT: warm and well perfused with no edema NEURO: awake, alert, oriented, no focal deficits Objective Labs 06/15/23 15:12 06/15/23 15:12 Labs: Laboratory Results - last 24 hr 06/15/23 06/15/23 06/15/23 15:12 15:12 15:12 WBC 3.4 L RBC 4.11 L Hgb 14.3 Hct 41.7 MCV 101.5 H MCH 34.8 H MCHC 34.3 RDW 13.7 Plt Count 109 L Neut % (Auto) 39.0 L Lymph % (Auto) 40.8 H [place] % (Auto) 9.0 Eos % (Auto) 9.0 H Baso % (Auto) 2.2 H Neut # (Auto) 1300 L Lymph # (Auto) 1400 [place] # (Auto) 300 Eos # (Auto) 300 Baso # (Auto) 100 PT 13.4 H INR 1.2 APTT 27 Sodium 133 L Potassium 3.4 Chloride 93 L Carbon Dioxide 27 BUN 12 Creatinine 1.14 Estimated GFR > 60 BUN/Creatinine Ratio 10.5 Glucose 93 Calcium 8.7 Magnesium 1.0 L Total Bilirubin 0.8 AST 212 H ALT 110 H Alkaline Phosphatase 44 Total Creatine Kinase 103 Troponin I < 0.012 Total Protein 7.5 Albumin 4.4 Globulin 3.1 Albumin/Globulin Ratio 1.4 Lipase 120 Assessment & Plan Assessment & Plan narrative: # syncope with possible seizure -patient had syncopal episode at home and then another in the ED, once he arrived to the floor patient had another episode of brief unresponsiveness and rigidity per nursing -CT head negative, obtain MRI brain -Keppra 1 g b.i.d. ordered, can stop if suspicion for seizure low -likely due to poor po intake, low BP and malnutrition causing vasovagal syncope -obtain echo -Q shift orthostatics -tele -IVF -check urine tox, TSH, and UA, B12 and folate -PT/OT evals # daily alcohol use with dependence -drinks 3 glasses daily of 2 fingers of whiskey, ethanol level 189 -CIWA -MV, thiamine and folate -dietary consult -recommended cessation but patient not wanting to stop drinking # right-sided rib pain -likely from fall, no fractures on CXR -lidoderm patch daily # elevated LFTs -AST 212 and ALT 110, likely due to alcohol use -check hepatitis panel -obtain liver ultrasound # severe hypomagnesemia -Mag of 1 in ED, s/p 2 g -give another 4 g -daily Mag checks # chronic thrombocytopenia -platelets 109k, likely liver related -monitor # GERD -continue PPI Code status is DNR. DVT prophylaxis with Lovenox. Proxy is share. I have reviewed home meds and used all available resources to reconcile the home meds. Case discussed with ED physician/APC and patient will be admitted to the hospitalist service for further workup and management. This patient will be admitted as observation and will require less than 2 midnights of hospital time to treat syncope work.
[2023-06-15] MEDS: levETIRAcetam 1,000 MG in SODIUM CHLORIDE 0.9% 100 ML 440 MG IV (17:53)
--- NOTE | 2023-06-15 17:54 | DI.US.S_ITS ---
PROCEDURE: US ABDOMEN LIMITED INDICATIONS: ELEVATED LIVER FUNCTION TESTS. ETOH ABUSE. TECHNIQUE: Real-time scanning was performed of the abdominal, with image documentation. COMPARISON: [facility], CT, CT ABDOMEN PANCREATIC PROTOCOL, 09/27/2022, 8:56. [facility], US, US ABDOMEN LIMITED, 03/01/2022, 17:05. FINDINGS: Technically limited exam due to acoustic windows and body habitus. Liver: Measures 16.8 cm in length. Increased in echogenicity. Decreased sonographic penetration. Gallbladder: Partially distended. Gallstone measuring 1.2 cm. Gallbladder wall thickening measuring 6 mm. Negative sonographic Macdonald's sign. Hypoechoic structure adjacent to the gallbladder measuring 1.5 cm. This could represent pericholecystic fluid versus is a cyst. Biliary ducts: No intrahepatic biliary ductal dilatation is seen. CBD is not visualized. Pancreas: Pancreatic head is not well seen. The pancreatic body and tail are not seen. IMPRESSION: Exam is limited by acoustic windows and body habitus. 1. Gallbladder wall thickening and a gallstone. These findings raise the possibility of cholecystitis. However, no sonographic Macdonald's sign. HIDA scan could be helpful for further evaluation. 2. Hypoechoic structure adjacent to the gallbladder measuring 1.5 cm. This could represent pericholecystic fluid versus is a cyst. No cyst was seen on prior CT. 3. Increased hepatic echogenicity most consistent with hepatic steatosis. Other forms of hepatocellular disease could have similar appearance. Dictated by: Garfield Harris M.D. on 06/16/2023 at 8:25 Approved by: Garfield Harris M.D. on 06/16/2023 at 8:32
[2023-06-15] MEDS: SODIUM CHLORIDE 0.9% 1,000 ML 100 ML IV (17:56)
[2023-06-15 17:57] LABS: Hemoglobin A1C% w Est Avg Glu 4.9 % (4.0-6.0)
[2023-06-15 18:20] LABS: Ethanol (ETOH) 189 mg/dL
[2023-06-15] MEDS: MAGNESIUM SULFATE 4 GM/100 ML PIGGYBACK IV (18:22)
[2023-06-15 18:28] LABS: TSH w/ Reflex to FT4 2.63 uIU/mL (0.47-4.68)
--- NOTE | 2023-06-15 18:45 | PC.NURSE ---
Event Note Patient with seizure like activity upon arrival to floor, symptoms resolved within few seconds. Post event patient A&O, VSS and back to baseline. MD notified and STAT orders received and implemented. 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
[2023-06-15] MEDS: SODIUM CHLORIDE 0.9% 1,000 ML 1000 ML IV (18:50)
[2023-06-15] MEDS: LIDOCAINE PATCH 1 EACH ADH..PATCH TOP (19:59)
[2023-06-15] MEDS: ENOXAPARIN 40 MG/0.4 ML SYRINGE SUBCUT (20:00)
[2023-06-15 20:35] LABS: Vitamin B12 Reflex MMA if <400 389 pg/mL (239-931)
[2023-06-16] VITALS (11 sets, daily range): BP systolic 87–156; BP diastolic 46–77; PULSE 65–96; RESP 16–20; TEMP 36.3–37.1; O2SAT 92–98
[2023-06-16] MEDS: HYDROCODONE/ACET 5/325 TABLET 1 TAB PO (02:27)
[2023-06-16] MEDS: levETIRAcetam 1,000 MG in SODIUM CHLORIDE 0.9% 100 ML 440 MG IV (05:38)
[2023-06-16 05:48] LABS: Add Manual Diff / Slide Review NO; Basophils Absolute Auto 0 /uL (0-100); Basophils Percent Auto 0.9 % (0-2); Eosinophils Absolute Auto 0 /uL (0-450); Eosinophils Percent Auto 1.3 % (2-4); Hematocrit 38.8 % (41-53); Hemoglobin 13.4 g/dL (13.5-17.5); Lymphocytes Absolute Auto 500 /uL (1100-4500); Lymphocytes Percent Auto 16.5 % (25-40); Mean Corpuscular HGB Conc 34.6 % (30-36); Mean Corpuscular Hemoglobin 34.9 PG (26-34); Monocytes Absolute Auto 400 /uL (0-900); Monocytes Percent Auto 13.5 % (3-14); Neutrophils Absolute Auto 1900 /uL (1500-7000); Neutrophils Percent Auto 67.8 % (50-75); Platelet Count 88 X10^3/uL (150-400); Red Blood Cell Count 3.84 X10^6/uL (4.5-5.9); Red Cell Distribution Width 13.4 % (11.6-14.8); White Blood Cell Count 2.8 X10^3/uL (4.5-11.0)
[2023-06-16 06:02] LABS: BUN Creatinine Ratio 12.5 (6-22); Blood Urea Nitrogen 10 mg/dL (9-20); Calcium 8.6 mg/dL (8.4-10.2); Carbon Dioxide 24 mmol/L (22-32); Chloride 96 mmol/L (98-107); Estimated Glomerular Filt Rate > 60 mL/min (>60); Glucose 70 mg/dL (80-110); HEMOLYSIS < 15 (0-50); Magnesium 2.3 mg/dL (1.6-2.3); Potassium 4.3 mmol/L (3.4-5.1); Sodium 132 mmol/L (137-145)
[2023-06-16] MEDS: SODIUM CHLORIDE 0.9% 1,000 ML 1000 ML IV (09:05)
[2023-06-16] MEDS: ENOXAPARIN 40 MG/0.4 ML SYRINGE SUBCUT (09:07)
[2023-06-16] MEDS: LIDOCAINE PATCH 1 EACH ADH..PATCH TOP (09:07)
[2023-06-16] MEDS: MULTIVITAMIN 1 TABLET 1 TAB PO (09:08)
[2023-06-16] MEDS: FOLIC ACID 1 MG TABLET PO (09:08)
[2023-06-16] MEDS: THIAMINE 100 MG TABLET PO (09:08)
[2023-06-16 09:25] LABS: Alanine Aminotransferase 94 IU/L (<50); Albumin Globulin Ratio 1.5 (1.0-2.8); Alkaline Phosphatase 42 U/L (38-126); Aspartate Aminotransferase 146 IU/L (17-59); Bilirubin Total 0.9 mg/dL (0.2-1.3); Bilirubin Unconjugated 0.5 mg/dL (0.0-1.1); Globulin 2.6 g/dL (1.7-4.1); HEMOLYSIS < 15 (0-50); Total Protein 6.6 g/dL (6.3-8.2)
--- NOTE | 2023-06-16 11:54 | PT.IIE ---
Addendum entered and electronically signed by Summer Rosario PT 06/16/23 12:01: Treatment diagnosis incorrect. It should be fall with hip, head and rib injury/pain Original Note: Surgical History (Last Reviewed 09/27/22 @ 06:01 by SALOMON Burton-) S/P total hip arthroplasty Status post colonoscopy Status post radical cystoprostatectomy Medical History (Last Updated 06/09/23 @ 08:14 by Kristy Alba DO) Alcoholic pancreatitis Combined hyperlipidemia Concussion Essential tremor Falls frequently Fatty liver GERD (gastroesophageal reflux disease) Intraparenchymal hemorrhage of brain Macrocytosis Right fibular fracture Thrombocytopenia Physical Therapy Inpatient Evaluation/Re-Eval M1 PT/OT-IP Prior Functional Status Start: 06/16/23 08:06 Freq: NEEDED Status: Active Protocol: Document 06/16/23 08:37 MB (Rec: 06/16/23 11:54 MB [id number]) Medical Review Prior Functional Status Medical History Reviewed Yes Communication Pt has trouble communicating baseline function. Mobility and Gait Pt reports that he gait trains with SPC at home. He thinks there might be a walker but he does not know. Activities of Daily Living and IADL's When asked about function and chores, pt states that he did his own ADLs and did the cooking. He states that he drove. Social History Household Members spouse Living Arrangements House Number of Floors (Floors) One Floor Number of Stairs To Enter/Railing? 2, no railing. Pt cannot communicate other DME in the home. 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 M2 PT-IP Current Condition Start: 06/16/23 08:06 Freq: NEEDED Status: Active Protocol: Document 06/16/23 08:37 MB (Rec: 06/16/23 11:54 MB [id number]) Physical Therapy Current Condition Current Condition Evaluation Date 06/16/23 Treatment Diagnosis Dizziness when lying on left side in the bed Onset Date One day ago M3 PT-IP Subjective Start: 06/16/23 08:06 Freq: NEEDED Status: Active Protocol: Document 06/16/23 08:37 MB (Rec: 06/16/23 11:54 MB [id number]) Subjective Physical Therapy Visit Type Type Initial Evaluation Visit Start Time 08:10 Visit Stop Time 08:37 Total Visit Minutes 27 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 Physical Therapy Visit Comments Patient Comments Pt does not have spontaneous conversation Patient Goals To go home Therapy Pain Assessment Pain When Pain Assessed During Mobility Pain Present Pain Present Pain Reported Location right ribs/back Intensity 5 Scale Used MatthewDoraLee (Faces) Description Sharp Pain Behaviors Calling Out,Facial Grimacing, Guarding,Holding Area,Moaning Pain Management Techniques Re-positioning M4 PT-IP Mobility and Gait Start: 06/16/23 08:06 Freq: NEEDED Status: Active Protocol: Document 06/16/23 08:37 MB (Rec: 06/16/23 11:54 MB [id number]) PT-Bed Mobility Assessment Rolling Type of Rolling Roll to Right Level of Assist Moderate Assistance,1 Person Assistance Supine to Sit Supine to Sit Moderate Assistance,1 Person Assistance,Head of Bed Elevated,Bedrails Sit to Supine Sit to Supine Maximum Assistance,1 Person Assistance Scooting Scooting to Edge of Bed Minimal Assistance PT-Transfer Assessment Sit to and From Stand Sit to and from Stand Moderate Assistance,1 Person Assistance,Use of Upper Extremities Equipment Transfer Assistive Device Gait Belt,Front Wheeled Walker Orthotic/Prosthetic Devices or Brace: No Comments Mobility Comments PT assists pt in STS to check orthostatics and pt moves slowly. He does not verbalize enough to state that he dizzy or not. Pt with positive orthostatic hypotension with BP and HR in right proximal UE : supine 148/70, 76; standing 93/59, 96; standing 1' 87/46, 76. Mod A to return to sitting . Pt begins to make choking sound from throat and states he feels sick. He does not spit. His nose drips. He begins to have more choking sound. His eyes look and gaze up to the left and he becomes rigid. PT hits nsg call button and PT moves pt back to side lying with max A. PT-Balance Assessment Sitting Balance and Reactions Static Sitting Balance Ability Fair Dynamic Sitting Balance Ability Poor Standing Balance and Reactions Static Standing Balance Ability Poor Dynamic Standing Balance Ability Poor M5 PT-IP Objective Assessments Start: 06/16/23 08:06 Freq: NEEDED Status: Active Protocol: Document 06/16/23 08:37 MB (Rec: 06/16/23 11:54 MB [id number]) Orientation Orientation/Cognition Level of Alertness Confusional State Orientation Name,Age,Birthday,Month,Date, Year,Day of Week,Place Safety Awareness Decreased Safety Awareness Memory Description Short Term Impaired Gross Range of Motion Upper Extremity ROM Impairments Defer to OT Lower Extremity ROM Assessment Within Functional Limits Strength Lower Extremity Strength Assessment Within Functional Limits M7 PT-IP Assessment and Plan Start: 06/16/23 08:06 Freq: NEEDED Status: Active Protocol: Document 06/16/23 08:37 MB (Rec: 06/16/23 11:54 MB [id number]) PT Summary Assessment and Plan Potential Rehabilitation Potential Fair Status of Condition at Evaluation Unstable Summary Impairments Pain,Balance,Cognition,Bed Mobility,Transfers,Gait, Activity Tolerance Progress Towards Goals Slow Progress - Other Assessment Summary Pt is an 82 y/o male who does not have much memory of the two falls/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 He has good LE strength in supine and he c/o right rib pain with movement. He requires min to max A for bed mobility and mod A for STS to RW to check orthostatics and max A to get back to supine and right side lying. Pt is severely orthostatic. He makes a choking sound, has fixed gaze up and to the left and has rigidity after standing up and PT returns him to bed. While he is orthostatic, this response does not appear to be a typical orthostatic response per PT's experience of orthostatic patients. Mobility is stopped and nsg and doctor enter. Pt was unable to participate with further mobility. Goals Bed Mobility Goal Independent Transfer Goal Standby Assistance Gait Goal Standby Assistance Gait Distance 100 Days to Meet Goals 5 Frequency of Treatment Frequency Of Treatment Once a Day Treatment Plan Physical Therapy Treatment Plan Bed Mobility Training,Transfer Training,Gait Training, Therapeutic Exercise,Balance Retraining Other Recommendations and Next Treatment Check orthostatics and Focus progress mobility if pt is able, +2 person assistance nearby if able Recommendations To Nursing Amount of Assist Needed 2 Person Assist,Mechanical Lift Discharge Recommendations PT Discharge Recommendations SNF Rehab Other Discharge Recommendations Difficult to make a recommendation given his inability to tolerate mobility given episode today. Currently, he would require 24 hour assistance, therapy in SNF setting Transportation Needs at Discharge Wheelchair/Cabulance
--- NOTE | 2023-06-16 12:15 | PT.IIE ---
Surgical History (Last Reviewed 09/27/22 @ 06:01 [facility] S/P total hip arthroplasty Status post colonoscopy Status post radical cystoprostatectomy Medical History (Last Updated 06/09/23 @ 08:14 by Kristy Alba DO) Alcoholic pancreatitis Combined hyperlipidemia Concussion Essential tremor Falls frequently Fatty liver GERD (gastroesophageal reflux disease) Intraparenchymal hemorrhage of brain Macrocytosis Right fibular fracture Thrombocytopenia Physical Therapy Inpatient Evaluation/Re-Eval M1 PT/OT-IP Prior Functional Status Start: 06/16/23 08:06 Freq: NEEDED Status: Active Protocol: Document 06/16/23 08:37 MB (Rec: 06/16/23 11:54 MB [id number]) Medical Review Prior Functional Status Medical History Reviewed Yes Communication Pt has trouble communicating baseline function. Mobility and Gait Pt reports that he gait trains with SPC at home. He thinks there might be a walker but he does not know. Activities of Daily Living and IADL's When asked about function and chores, pt states that he did his own ADLs and did the cooking. He states that he drove. Social History Household Members spouse Living Arrangements House Number of Floors (Floors) One Floor Number of Stairs To Enter/Railing? 2, no railing. Pt cannot communicate other DME in the home. 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 M2 PT-IP Current Condition Start: 06/16/23 08:06 Freq: NEEDED Status: Active Protocol: Document 06/16/23 08:37 MB (Rec: 06/16/23 11:54 MB [id number]) Physical Therapy Current Condition Current Condition Evaluation Date 06/16/23 Treatment Diagnosis Dizziness when lying on left side in the bed Onset Date One day ago M3 PT-IP Subjective Start: 06/16/23 08:06 Freq: NEEDED Status: Active Protocol: Document 06/16/23 08:37 MB (Rec: 06/16/23 11:54 MB [id number]) Subjective Physical Therapy Visit Type Type Initial Evaluation Visit Start Time 08:10 Visit Stop Time 08:37 Total Visit Minutes 27 Number of CUSTOMER SERVICE SPECIALIST Visits 0 Physical Therapy Visit Comments Patient Comments Pt does not have spontaneous conversation Patient Goals To go home Therapy Pain Assessment Pain When Pain Assessed During Mobility Pain Present Pain Present Pain Reported Location right ribs/back Intensity 5 Scale Used Matthew-Lee (Faces) Description Sharp Pain Behaviors Calling Out,Facial Grimacing, Guarding,Holding Area,Moaning Pain Management Techniques Re-positioning M4 PT-IP Mobility and Gait Start: 06/16/23 08:06 Freq: NEEDED Status: Active Protocol: Document 06/16/23 08:37 MB (Rec: 06/16/23 11:54 MB [id number]) PT-Bed Mobility Assessment Rolling Type of Rolling Roll to Right Level of Assist Moderate Assistance,1 Person Assistance Supine to Sit Supine to Sit Moderate Assistance,1 Person Assistance,Head of Bed Elevated,Bedrails Sit to Supine Sit to Supine Maximum Assistance,1 Person Assistance Scooting Scooting to Edge of Bed Minimal Assistance PT-Transfer Assessment Sit to and From Stand Sit to and from Stand Moderate Assistance,1 Person Assistance,Use of Upper Extremities Equipment Transfer Assistive Device Gait Belt,Front Wheeled Walker Orthotic/Prosthetic Devices or Brace: No Comments Mobility Comments PT assists pt in STS to check orthostatics and pt moves slowly. He does not verbalize enough to state that he dizzy or not. Pt with positive orthostatic hypotension with BP and HR in right proximal UE : supine 148/70, 76; standing 93/59, 96; standing 1' 87/46, 76. Mod A to return to sitting . Pt begins to make choking sound from throat and states he feels sick. He does not spit. His nose drips. He begins to have more choking sound. His eyes look and gaze up to the left and he becomes rigid. PT hits nsg call button and PT moves pt back to side lying with max A. PT-Balance Assessment Sitting Balance and Reactions Static Sitting Balance Ability Fair Dynamic Sitting Balance Ability Poor Standing Balance and Reactions Static Standing Balance Ability Poor Dynamic Standing Balance Ability Poor M5 PT-IP Objective Assessments Start: 06/16/23 08:06 Freq: NEEDED Status: Active Protocol: Document 06/16/23 08:37 MB (Rec: 06/16/23 11:54 MB [id number]) Orientation Orientation/Cognition Level of Alertness Confusional State Orientation Name,Age,Birthday,Month,Date, Year,Day of Week,Place Safety Awareness Decreased Safety Awareness Memory Description Short Term Impaired Gross Range of Motion Upper Extremity ROM Impairments Defer to OT Lower Extremity ROM Assessment Within Functional Limits Strength Lower Extremity Strength Assessment Within Functional Limits M7 PT-IP Assessment and Plan Start: 06/16/23 08:06 Freq: NEEDED Status: Active Protocol: Document 06/16/23 08:37 MB (Rec: 06/16/23 11:54 MB [id number]) PT Summary Assessment and Plan Potential Rehabilitation Potential Fair Status of Condition at Evaluation Unstable Summary Impairments Pain,Balance,Cognition,Bed Mobility,Transfers,Gait, Activity Tolerance Progress Towards Goals Slow Progress - Other Assessment Summary Pt is an 82 y/o male who does not have much memory of the two 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 He has good LE strength in supine and he c/o right rib pain with movement. He requires min to max A for bed mobility and mod A for STS to RW to check orthostatics and max A to get back to supine and right side lying. Pt is severely orthostatic. He makes a choking sound, has fixed gaze up and to the left and has rigidity after standing up and PT returns him to bed. While he is orthostatic, this response does not appear to be a typical orthostatic response per PT's experience of orthostatic patients. Mobility is stopped and nsg and doctor enter. Pt was unable to participate with further mobility. Goals Bed Mobility Goal Independent Transfer Goal Standby Assistance Gait Goal Standby Assistance Gait Distance 100 Days to Meet Goals 5 Frequency of Treatment Frequency Of Treatment Once a Day Treatment Plan Physical Therapy Treatment Plan Bed Mobility Training,Transfer Training,Gait Training, Therapeutic Exercise,Balance Retraining Other Recommendations and Next Treatment Check orthostatics and Focus progress mobility if pt is able, +2 person assistance nearby if able Recommendations To Nursing Amount of Assist Needed 2 Person Assist,Mechanical Lift Discharge Recommendations PT Discharge Recommendations SNF Rehab Other Discharge Recommendations Difficult to make a recommendation given his inability to tolerate mobility given episode today. Currently, he would require 24 hour assistance, therapy in SNF setting Transportation Needs at Discharge Wheelchair/Cabulance
--- NOTE | 2023-06-16 12:24 | PT-IP ANOTE ---
MRI results received after PT consult completed and pt is found to have acute stroke.
--- NOTE | 2023-06-16 12:56 | CM.DANOTE ---
Patient is an 82 yo male who was admitted on 06/15/23 for Syncope. Pt has [facility] for insurance and his PCP was Dr. Abbe Aguirre but his PCP left and now is seen currently by Margarita Stoll. EMR was reviewed. Per , pt with hx of daily ETOH of whiskey and pancreatitis and states no hx of withdrawal seizures and had UDS 189 of ETOH and sycopal workup. PT/OT, attempted eval but pt's bp tanked and significant drop and increase in orthostatics and will attempt again later today. SW met bedside with pt and explained role and he confirms he was last admitted in Sep 2022 for similar and discharged home with spouse. Pt confirms he still lives in [place] with his and has local supportive son and also Dtr. Pt thinks he completed Living Will and Advanced directives and named DPOA but he cannot remember who officially is his DPOA. SW encouraged him to get a copy to either the hospital or his PCP office. Pt states he uses a cane for ambulation but otherwise mostly independent with ADLs and drives. Pt currently denies any need for ETOH resources and denies any hx of HH or SNF. Pt confirms his drinking information from his last admission in Sep 2022. Patient admits to drinking whiskey and water throughout the day on the weekends, less throughout the week. Patient does not drink until blacking out. Spouse also drinks heavily. Patient is not forthcoming about the exact amount of alcohol he drinks. Patient denies having a problem with alcohol abuse and says he is considering cutting back but then states I like drinking and cannot find a reason to quit at this time. Per MD, pt to get fluid bolus to see if this helps his bp and pt's MRI returned showing infarct and not medically stable yet to discharge. PT/OT notified. Plan: SW needs unclear at this time. SW to follow closely for PT/OT eval and recommendations to determine discharge planning needs of HH vs SNF. DONTAE Couch Discharge Planning/Care Management CM Discharge Assessment Start: 06/16/23 12:53 Freq: Status: Active Protocol: Document 06/16/23 12:53 BF (Rec: 06/16/23 12:56 BF [id number]) Discharge Planning Assessment Assigned Plywood And Veneer Repairer DONTAE Car DPOA/Assigned Designee Name pt thinks spouse Margarita or maybe his son or Dtr Advance Directives? Yes Advance Directives on File No History Provided By Patient,Family Member,Medical Record Has Patient been admitted in last 30 No days? Comment Last admission in Sep 2022 this year for similar, syncope and went home Prior Living Arrangements House Household Members spouse Type of transporation used prior to Drives own vehicle admit Independent with ADL's Yes Is patient alert and oriented? Yes Needs Assistance With Home Chores / Shopping Caregiver for Another No DME Already Rented / Owned Cane Comment Prefers using his trekking poles to ambulate (vs walker). Comment SNF vs HH pending PT/OT Barriers to Discharge No Comment pending PT/OT eval and recommendations Discharge Plan Home Transportation Arrangement Spouse will transport via private vehicle if safe for home Additional Comment pending PT/OT eval and recommendations Whiteboard Updated in Patient Room with Yes name and ext. # of Plywood And Veneer Repairer Review Status In Process Please Provide Date Initial DC 06/16/23 Assessment Was Performed Next Review Type Continued Stay Review
--- NOTE | 2023-06-16 13:00 | OT.IP.EVAL ---
Past Medical History (Last Updated 06/09/23 @ 08:14 by Kristy Alba DO) Alcoholic pancreatitis Combined hyperlipidemia Concussion Essential tremor Falls frequently Fatty liver GERD (gastroesophageal reflux disease) Intraparenchymal hemorrhage of brain Macrocytosis Right fibular fracture Thrombocytopenia Surgical History (Last Reviewed 09/27/22 @ 06:01 by SALOMON Bruton-) S/P total hip arthroplasty Status post colonoscopy Status post radical cystoprostatectomy Occupational Therapy Inpatient Evaluation/Re-Eval M1 PT/OT-IP Prior Functional Status Start: 06/16/23 08:06 Freq: NEEDED Status: Active Protocol: Document 06/16/23 13:17 CGR (Rec: 06/16/23 13:47 CGR [id number]) Medical Review Prior Functional Status Medical History Reviewed Yes Communication Pt is an effective verbal communicator Mobility and Gait Pt reports that he gait trains with SPC at home. Activities of Daily Living and IADL's Pt is IND in all ADLs and IADLs. 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 Social History Household Members spouse Living Arrangements House Number of Floors (Floors) One Floor Number of Stairs To Enter/Railing? 2 steps to enter without hand rail. 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 Pt's daughter works for [employer]. M2 OT-IP Current Condition Start: 06/16/23 13:16 Freq: Status: Active Protocol: Document 06/16/23 13:17 CGR (Rec: 06/16/23 13:47 CGR [id number]) Occupational Therapy Current Condition Current Condition Evaluation Date 06/16/23 Treatment Diagnosis Fall, orthostatic hypotension, subacute L frontal parietal subdural hematom Diagnosis Onset Date 06/16/23 M3 OT- IP Subjective and Pain Start: 06/16/23 13:16 Freq: Status: Active Protocol: Document 06/16/23 13:17 CGR (Rec: 06/16/23 13:47 CGR [id number]) OT- Subjective Occupational Therapy Visit Type Type Initial Evaluation Visit Start Time 12:35 Visit Stop Time 13:00 Total Visit Minutes 25 Notes Per MD, pt will get a bolus OT Pain Assessment Pain When Pain Assessed At Rest Pain Present Pain Present Pain Reported Location right ribs/back Intensity 5 Scale Used Numeric (0 - 10) Management Techniques Distraction,Modification of Treatment,Re-positioning M4 OT- IP ADL's Start: 06/16/23 13:16 Freq: Status: Active Protocol: Document 06/16/23 13:17 CGR (Rec: 06/16/23 13:47 CGR [id number]) OT [id number] General Evaluation Self-Feeding Ability Independent Comments OT Self-Feeding Comments Pt eating lunch when OT entered OT ADL-Grooming Comments OT Grooming Comments pt declined, states that his will be bringing his self care stuff and would prefer to use that. OT ADL-Oral Care Comments Oral Care Comments pt declined, states that his will be bringing his self care stuff and would prefer to use that. OT ADL-Dressing Comments OT Dressing Comments not performed OT ADL-Toileting Comments OT Toileting Comments not performed OT ADL-Bathing Comments OT Bathing Comments not performed M5 OT- IP IADL's Start: 06/16/23 13:16 Freq: Status: Active Protocol: Document 06/16/23 13:17 CGR (Rec: 06/16/23 13:47 CGR [id number]) OT-Instrumental Activities of Daily Living Deficits IADL Deficits Identified No Deficits Home Safety Awareness Awareness of Need for Assistance at Home Good Awareness Ability to Problem Solve Emergency Able to Problem Solve Situations Medication Management Medication Management No Deficits Identified Money Management Money Management No Deficits Identified Meal Preparation Meal Preparation No Deficits Identified Overcoil Stepper Overcoil Stepper Caregiver Provides Assist Driving Driving Concerns Identified Regarding Safety Driving Comments 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 M6 OT- IP Functional Cognition Start: 06/16/23 13:16 Freq: Status: Active Protocol: Document 06/16/23 13:17 CGR (Rec: 06/16/23 13:47 CGR [id number]) Cognitive Factors Limiting Selfcare Function Cognitive Ability Level of Alertness Alert Patient Orientation Name,Age,Birthday,Month,Date, Year,Day of Week,Place, Situation Attention Span Ability Capable of Focused Attention, Capable of Sustained Attention OT- Vision and Hearing OT- Hearing Assessment OT- Hearing Assessment WFL OT- Vision Assessment Visual Acuity Glasses For Reading Visual Attentiveness WFL Occular Pursuits WFL Visual Convergence WFL M7 OT- IP Mobility and Balance Start: 06/16/23 13:16 Freq: Status: Active Protocol: Document 06/16/23 13:17 CGR (Rec: 06/16/23 13:47 CGR [id number]) OT- Bed Mobility Assessment Supine to Sit Supine to Sit Assist Minimal Assistance Scooting Scooting to Edge of Bed Contact Guard Assistance OT-Transfer Assessment Sit to and From Stand Sit to and from Stand Minimal Assistance Transfers Transfer Ability Minimal Assistance Technique Transfer Destination Bed,Chair Transfer Technique Stand Step Pivot Devices Transfer Assistive Devices Gait Belt,Front Wheeled Walker Comments Mobility Comments Pt performed orthostatics: reclined in bed: 155/75 HR 74 sitting EOB: 157/72 HR 79 standin/68 HR 102 sitting in chair: 167/85 HR 86 OT- Balance Assessment Sitting Balance and Reactions Static Sitting Balance Ability Good Dynamic Sitting Balance Ability Good M8 OT- IP Objective Assessments Start: 06/16/23 13:16 Freq: Status: Active Protocol: Document 06/16/23 13:17 CGR (Rec: 06/16/23 13:47 CGR [id number]) OT Gross Range of Motion Upper Extremity Range of Motion Assessment Within Functional Limits ROM Impairments rib pain impacting R arm movement OT Strength Upper Extremity Strength Assessment Within Functional Limits Comments Strength Comments R shld not tested, 4+/5 throughout OT- Coordination Assessment Upper Extremity Finger to Nose Test Within Functional Limits Finger Tapping Test Within Functional Limits OT-Muscle Tone Assessment Muscle Tone WNL Yes OT Sensation Assessment Edema Edema Absent M9 OT- IP Assessment and Plan Start: 06/16/23 13:16 Freq: Status: Active Protocol: Document 06/16/23 13:17 CGR (Rec: 06/16/23 13:47 CGR [id number]) OT Summary Assessment and Plan Potential Rehabilitation Potential Excellent Analytic Complexity at Evaluation Moderate Summary OT Impairments Pain,Balance,Functional Mobility,Grooming,Dressing, Toileting,Bathing,Toilet Transfers,Shower Transfers, Activity Tolerance Progress Towards Goals Progressing Toward Goals Assessment Summary Pt presents as a moderate complexity evaluation s/p admit for fall. He was found to have a subacute L frontal paretal subdural hematoma and currently is orthostatic. Pt will continue to benefit from OT services. Recommend d/c to home vs SNF depending on progress. Goals Grooming Goal Independent Dressing Goal Independent Toileting Goal Independent Bathing Goal Independent Toilet Transfer Goal Independent Shower Transfer Goal Independent Days to Meet Goals 5 Frequency of Treatment Frequency Of Treatment Once a Day Treatment Plan OT Treatment Plan ADL Training,Functional Mobility,Patient/Family Education,Discharge Planning Other Treatment Recommendations and Next shower and other activities if Treatment Focus BP is steady Discharge Recommendations OT Discharge Recommendations Home vs SNF Transportation Needs at Discharge Private Vehicle
[2023-06-16 14:01] LABS: Appearance Urine UA CLEAR; Bilirubin Urine UA 1+ (NEGATIVE); Color Urine UA YELLOW; Glucose Urine UA NEGATIVE (Negative); Ketones Urine UA 2+ (NEGATIVE); Leukocyte Esterase Urine UA NEGATIVE (NEGATIVE); Nitrite Urine UA NEGATIVE (Negative); Occult Blood Urine UA NEGATIVE (Negative); Protein Urine UA NEGATIVE (Negative); Specific Gravity Urine UA >=1.030 (1.000-1.035)
[2023-06-16 14:03] LABS: UR Morphine/Opiate cutoff 300 Positive (Negative); Ur Creatinine Normal (Normal); Ur Specific Gravity Normal (Normal); Urine Amphetamines Negative (Negative); Urine Barbiturates Negative (Negative); Urine Benzodiazepines Negative (Negative); Urine Cocaine Negative (Negative); Urine MDMA Negative (Negative); Urine Methadone Negative (Negative); Urine Methamphetamines Negative (Negative); Urine Oxycodone Negative (Negative); Urine Phencyclidine Negative (Negative); Urine Tetrahydrocannabinol Negative (Negative); Urine Tricyclic Antidepressant Negative (Negative); Urine pH Normal (Normal)
[2023-06-16 14:04] LABS: Ictotest Urine Negative (Negative)
[2023-06-16 14:05] LABS: Bacteria Urine None Seen; Culture Indicated Urine Cult Not Indicated; RBC Urine None Seen (0-5/HPF); Squamous Epithelial Cell Urine None Seen (0-5/HPF); Urine Comments N; WBC Urine None Seen (0-5/HPF)
--- NOTE | 2023-06-16 15:48 | P.PN_ITS ---
Subjective Subjective Interval history: 82 M admitted with frequent falls and syncope vs possible seizure. He is a daily drinker, reports last EtOH 2 days ago. No prior seizures or shakiness reported when he stops drinking. This morning he was getting out of bed with therapy when he reportedly got stiff and had his eyes roll back into his head. His BP was low, and he quickly returned to prior self. This is consistent with orthostatic hypotension. His MRI also showed a subdural hematoma, along with some chronic findings but a possible small lacunar infarct. Exam Vital Signs (past 8 hours): - 06/16/23 08:00 06/16/23 12:00 06/16/23 08:06 Temperature 97.8 F 98.5 F Pulse Rate 80 70 Pulse Rate [Orthostatic Lying] 76 Pulse Rate [Orthostatic Sitting] 96 H Pulse Rate [Orthostatic Standing] 76 Respiratory Rate 18 16 Blood Pressure 156/69 H 147/68 H Blood Pressure [Orthostatic Lying] 87/46 L Blood Pressure [Orthostatic Sitting] 93/59 L Blood Pressure [Orthostatic Standing] 148/70 H Pulse Oximetry 96 97 Oxygen Delivery Method Room Air Oxygen Flow Rate 0 Narrative Exam Narrative: GEN: no acute distress, right temporal scalp lac HEENT: moist mucous membranes, PERRL NECK: trachea midline, no JVD CV: regular rate and rhythm, no murmurs PULM: clear bilaterally ABD: soft, nontender, nondistended, no organomegaly EXT: warm and well perfused with no edema NEURO: awake, alert, oriented to person place and time, no focal deficits. Objective Labs 06/16/23 04:30 06/16/23 04:30 Labs: Laboratory Results - last 24 hr 06/15/23 06/15/23 06/15/23 16:59 16:59 16:59 WBC RBC Hgb Hct MCV MCH MCHC RDW Plt Count Neut % (Auto) Lymph % (Auto) [place] % (Auto) Eos % (Auto) Baso % (Auto) Neut # (Auto) Lymph # (Auto) [place] # (Auto) Eos # (Auto) Baso # (Auto) Sodium Potassium Chloride Carbon Dioxide BUN Creatinine Estimated GFR BUN/Creatinine Ratio Glucose Hemoglobin A1c 4.9 Calcium Magnesium Total Bilirubin Conjugated Bilirubin Unconjugated Bilirubin AST ALT Alkaline Phosphatase Total Protein Albumin Globulin Albumin/Globulin Ratio Vitamin B12 Folate TSH 2.63 Urine Color Urine Appearance Urine pH Ur Specific [place] Urine Protein Urine Glucose (UA) Urine Ketones Urine Occult Blood Urine Nitrate Urine Bilirubin Ur Bilirubin Confirm Urine Urobilinogen Ur Leukocyte Esterase Urine RBC Urine WBC Ur Squamous Epith Cells Urine Bacteria Ur Culture Indicated? Micro UA Comment U Opiates 300ng/mL cut Ur Oxycodone Screen Urine Methadone Screen Ur Barbiturates Screen U Tricyclic Antidepress Ur Phencyclidine Scrn Ur Amphetamines Screen U Methamphetamines Scrn Ur MDMA Scrn (Ecstasy) U Benzodiazepines Scrn Urine Cocaine Screen U Marijuana (THC) Screen Ethyl Alcohol 189 H 06/15/23 06/16/23 06/16/23 16:59 04:30 04:30 WBC 2.8 L RBC 3.84 L Hgb 13.4 L Hct 38.8 L MCV 101.0 H MCH 34.9 H MCHC 34.6 RDW 13.4 Plt Count 88 L Neut % (Auto) 67.8 D Lymph % (Auto) 16.5 L D [place] % (Auto) 13.5 Eos % (Auto) 1.3 L Baso % (Auto) 0.9 Neut # (Auto) 1900 Lymph # (Auto) 500 L [place] # (Auto) 400 Eos # (Auto) 0 Baso # (Auto) 0 Sodium Potassium Chloride Carbon Dioxide BUN Creatinine Estimated GFR BUN/Creatinine Ratio Glucose Hemoglobin A1c Calcium Magnesium 2.3 Total Bilirubin Conjugated Bilirubin Unconjugated Bilirubin AST ALT Alkaline Phosphatase Total Protein Albumin Globulin Albumin/Globulin Ratio Vitamin B12 389 Folate 4.0 TSH Urine Color Urine Appearance Urine pH Ur Specific [place] Urine Protein Urine Glucose (UA) Urine Ketones Urine Occult Blood Urine Nitrate Urine Bilirubin Ur Bilirubin Confirm Urine Urobilinogen Ur Leukocyte Esterase Urine RBC Urine WBC Ur Squamous Epith Cells Urine Bacteria Ur Culture Indicated? Micro UA Comment U Opiates 300ng/mL cut Ur Oxycodone Screen Urine Methadone Screen Ur Barbiturates Screen U Tricyclic Antidepress Ur Phencyclidine Scrn Ur Amphetamines Screen U Methamphetamines Scrn Ur MDMA Scrn (Ecstasy) U Benzodiazepines Scrn Urine Cocaine Screen U Marijuana (THC) Screen Ethyl Alcohol 06/16/23 06/16/23 06/16/23 04:30 04:30 10:45 WBC RBC Hgb Hct MCV MCH MCHC RDW Plt Count Neut % (Auto) Lymph % (Auto) [place] % (Auto) Eos % (Auto) Baso % (Auto) Neut # (Auto) Lymph # (Auto) [place] # (Auto) Eos # (Auto) Baso # (Auto) Sodium 132 L Potassium 4.3 Chloride 96 L Carbon Dioxide 24 BUN 10 Creatinine 0.80 Estimated GFR > 60 BUN/Creatinine Ratio 12.5 Glucose 70 L Hemoglobin A1c Calcium 8.6 Magnesium Total Bilirubin 0.9 Conjugated Bilirubin 0.0 Unconjugated Bilirubin 0.5 AST 146 H ALT 94 H Alkaline Phosphatase 42 Total Protein 6.6 Albumin 4.0 Globulin 2.6 Albumin/Globulin Ratio 1.5 Vitamin B12 Folate TSH Urine Color Yellow Urine Appearance Clear Urine pH 5.0 Ur Specific [place] >=1.030 H Urine Protein Negative Urine Glucose (UA) Negative Urine Ketones 2+ H Urine Occult Blood Negative Urine Nitrate Negative Urine Bilirubin 1+ H Ur Bilirubin Confirm Negative Urine Urobilinogen 1.0 Ur Leukocyte Esterase Negative Urine RBC None seen Urine WBC None seen Ur Squamous Epith Cells None seen Urine Bacteria None seen Ur Culture Indicated? Cult not indicated Micro UA Comment N U Opiates 300ng/mL cut Ur Oxycodone Screen Urine Methadone Screen Ur Barbiturates Screen U Tricyclic Antidepress Ur Phencyclidine Scrn Ur Amphetamines Screen U Methamphetamines Scrn Ur MDMA Scrn (Ecstasy) U Benzodiazepines Scrn Urine Cocaine Screen U Marijuana (THC) Screen Ethyl Alcohol 06/16/23 10:45 WBC RBC Hgb Hct MCV MCH MCHC RDW Plt Count Neut % (Auto) Lymph % (Auto) [place] % (Auto) Eos % (Auto) Baso % (Auto) Neut # (Auto) Lymph # (Auto) [place] # (Auto) Eos # (Auto) Baso # (Auto) Sodium Potassium Chloride Carbon Dioxide BUN Creatinine Estimated GFR BUN/Creatinine Ratio Glucose Hemoglobin A1c Calcium Magnesium Total Bilirubin Conjugated Bilirubin Unconjugated Bilirubin AST ALT Alkaline Phosphatase Total Protein Albumin Globulin Albumin/Globulin Ratio Vitamin B12 Folate TSH Urine Color Urine Appearance Urine pH Ur Specific [place] Urine Protein Urine Glucose (UA) Urine Ketones Urine Occult Blood Urine Nitrate Urine Bilirubin Ur Bilirubin Confirm Urine Urobilinogen Ur Leukocyte Esterase Urine RBC Urine WBC Ur Squamous Epith Cells Urine Bacteria Ur Culture Indicated? Micro UA Comment U Opiates 300ng/mL cut Positive H Ur Oxycodone Screen Negative Urine Methadone Screen Negative Ur Barbiturates Screen Negative U Tricyclic Antidepress Negative Ur Phencyclidine Scrn Negative Ur Amphetamines Screen Negative U Methamphetamines Scrn Negative Ur MDMA Scrn (Ecstasy) Negative U Benzodiazepines Scrn Negative Urine Cocaine Screen Negative U Marijuana (THC) Screen Negative Ethyl Alcohol PFSH Medical History (Updated 06/15/23 @ 18:51 by Charmaine Alegria MD) Alcoholic pancreatitis Combined hyperlipidemia Concussion Essential tremor Falls frequently Fatty liver GERD (gastroesophageal reflux disease) Intraparenchymal hemorrhage of brain Macrocytosis Right fibular fracture Thrombocytopenia Surgical History S/P total hip arthroplasty Status post colonoscopy Status post radical cystoprostatectomy Family History Father Prostate cancer Kidney problem Mother Old age Social History household members: spouse Smoking Status: Former smoker Tobacco: How many years used: 50 second hand exposure: No alcohol intake: current substance use type: does not use Assessment & Plan Assessment & Plan narrative: # syncope with possible seizure, CVA, and subdural hematoma, with orthostatic hypotension -patient had syncopal episode at home and then another in the ED, once he arrived to the floor patient had another episode of brief unresponsiveness and rigidity per nursing. Another episode on day 1. BP afterwards was low and this may be compatible with orthostatic hypotension. However cannot definitively rule out seizure given MRI findings of possible lacunar infarct and a subdural hematoma so will continue keppra. -CT head negative, MR brain with subdural hematoma, hemangioma, and possible small lacunar acute infarct. -Keppra 1 g b.i.d. ordered, can stop if suspicion for seizure low -likely due to poor po intake, low BP and malnutrition causing vasovagal syncope -TTE ordered and pending -Q shift orthostatics -continue tele -gave additional IV fluid bolus today. Encourage oral rehydration. -check urine tox, TSH, and UA, B12 and folate -okay to continue PT/OT. -added asa 81 mg daily and statin given MRI with lacunar infarct. # daily alcohol use with dependence -drinks 3 glasses daily of 2 fingers of whiskey, ethanol level 189 -CIWA -MV, thiamine and folate -dietary consult -recommended cessation but patient not wanting to stop drinking # right-sided rib pain -likely from fall, no fractures on CXR -lidoderm patch daily # alcoholic hepatitis -AST 212 and ALT 110, likely due to alcohol use -check hepatitis panel -abdominal ultrasound with thickening and a gallstone, however no current symptoms. Continue to monitor liver enzymes. # severe hypomagnesemia -Mag of 1 in ED, s/p 2 g -gave another 4 g, now improved to 2.3 today -daily Mag checks # chronic thrombocytopenia -platelets 109k, likely liver related -monitor # GERD -continue PPI Code status is DNR. DVT prophylaxis will hold today as plt count fell, along with findings of subdural hematoma and lacunar infarct. Risks outweigh benefits at this time. Proxy is Additional history was obtained and discussion with radiologist given above MR findings. Quality MIPS - Admit I confirm the patient?s Advance Care Plan is present, Code status is documented, Surrogate decision maker is in patient?s record [If Yes, STOP here]: Yes
--- NOTE | 2023-06-16 17:08 | PC.NURSE ---
Event Note This am patient with hypotensive syncopal episode during physical therapy. PT called this RN to bedside. Episode lasted a few seconds, VSS stable post episode. Patient episode to previous episodes. MD called to bedside, new orders per MD, orders implemented by this RN. Will continue to monitor.
[2023-06-16] MEDS: ATORVASTATIN 20 MG TABLET 40 MG PO (20:30)
[2023-06-16] MEDS: levETIRAcetam 250 MG TABLET 500 MG PO (20:30)
[2023-06-17] VITALS (7 sets, daily range): BP systolic 116–168; BP diastolic 63–89; PULSE 64–89; RESP 15–18; TEMP 36.2–36.6; O2SAT 94–97
[2023-06-17 05:22] LABS: HBsAg Screen Negative (Negative); Hepatitis A Antibody IgM Negative (Negative); Hepatitis B Core Antibody IgM Negative (Negative); Hepatitis C Antibody Non Reactive (Non Reactive)
[2023-06-17] MEDS: PANTOPRAZOLE DR 20 MG TABLET 40 MG PO (06:09)
[2023-06-17] MEDS: HYDROCODONE/ACET 5/325 TABLET 1 TAB PO (08:50)
[2023-06-17] MEDS: LIDOCAINE PATCH 1 EACH ADH..PATCH TOP (08:50)
[2023-06-17] MEDS: MULTIVITAMIN 1 TABLET 1 TAB PO (08:51)
[2023-06-17] MEDS: ASPIRIN EC 81 MG TABLET PO (08:51)
[2023-06-17] MEDS: FOLIC ACID 1 MG TABLET PO (08:51)
[2023-06-17] MEDS: THIAMINE 100 MG TABLET PO (08:51)
[2023-06-17] MEDS: levETIRAcetam 250 MG TABLET 500 MG PO ×2 (08:51→20:15)
--- NOTE | 2023-06-17 10:27 | PT.IPTN ---
Current Diagnoses Syncope and collapse (06/15/23) Physical Therapy Treatment Note M2 PT-IP Current Condition Start: 06/16/23 08:06 Freq: NEEDED Status: Active Protocol: Document 06/16/23 08:37 MB (Rec: 06/16/23 11:54 MB [id number]) Physical Therapy Current Condition Current Condition Evaluation Date 06/16/23 Treatment Diagnosis Dizziness when lying on left side in the bed Onset Date One day ago M3 PT-IP Subjective Start: 06/16/23 08:06 Freq: NEEDED Status: Active Protocol: Document 06/17/23 10:20 SAK (Rec: 06/17/23 10:27 SAK [id number]) Subjective Physical Therapy Visit Type Type Treatment Note Visit Start Time 09:55 Visit Stop Time 10:20 Total Visit Minutes 25 Number of SCRATCH BRUSHER Visits 0 Physical Therapy Visit Comments Patient Comments Patient reports the doctor said I may go home today, I don't think that's a good idea . Patient Goals To go home Therapy Pain Assessment Pain When Pain Assessed At Rest Pain Present Pain Present Pain Reported Location right ribs/back Intensity 4 Scale Used Numeric (0 - 10) Description Aching,Tender,With Movement Pain Management Techniques Re-positioning M4 PT-IP Mobility and Gait Start: 06/16/23 08:06 Freq: NEEDED Status: Active Protocol: Document 06/17/23 10:20 SAK (Rec: 06/17/23 10:27 SAK [id number]) PT-Bed Mobility Assessment Supine to Sit Supine to Sit Minimal Assistance,1 Person Assistance,Head of Bed Elevated,Bedrails Scooting Scooting to Edge of Bed Contact Guard Assistance PT-Transfer Assessment Sit to and From Stand Sit to and from Stand Minimal Assistance,1 Person Assistance,Use of Upper Extremities Equipment Transfer Assistive Device Gait Belt,Front Wheeled Walker Orthotic/Prosthetic Devices or Brace: No Comments Mobility Comments Orthostatic BP's supine 124/63, sit 129/74, stand 116/68, sit 135/68. Patient denied dizziness or nausea. Gait Assessment Gait Gait Assistance Required: Contact Guard Assist,1 Person Assist Distance (Feet) 20 Assistive Devices Assistive Device Front Wheeled Walker Gait Deviations General Gait Pattern Decreased Stride Length, Decreased Feet Clearance, Flexed Trunk Comments Gait Comments reported increased pain in ribs PT-Balance Assessment Sitting Balance and Reactions Static Sitting Balance Ability Good Dynamic Sitting Balance Ability Good Standing Balance and Reactions Static Standing Balance Ability Fair Dynamic Standing Balance Ability Fair Device Used FWW M5 PT-IP Objective Assessments Start: 06/16/23 08:06 Freq: NEEDED Status: Active Protocol: Document 06/17/23 10:20 SAK (Rec: 06/17/23 10:27 [facility] [id number]) Orientation Orientation/Cognition Level of Alertness Alert Orientation Name,Age,Birthday,Month,Date, Year,Day of Week,Place, Situation Language Function Ability Hard of Hearing Safety Awareness Decreased Safety Awareness Memory Description No Deficits Noted M6 PT-IP Treatment Start: 06/16/23 08:06 Freq: NEEDED Status: Active Protocol: Document 06/17/23 10:20 SAK (Rec: 06/17/23 10:27 [facility] [id number]) Physical Therapy Treatment Exercises Exercises Ankle Pumps,Seated Knee Flexion/Extension M7 PT-IP Assessment and Plan Start: 06/16/23 08:06 Freq: NEEDED Status: Active Protocol: Document 06/17/23 10:20 SAK (Rec: 06/17/23 10:27 [facility] [id number]) PT Summary Assessment and Plan Summary Assessment Summary Patient demonstrated improvement in mobility skills with CG to min assist plus verbal cues required. SCRATCH BRUSHER used cane for mobility though reports he has a walker at home. Required walker for short distance gait today. Moderate pain with mobility. Denied dizziness or nausea with mobility; some drop in BP moving from sit to stand but not symptomatic. Goals Bed Mobility Goal Independent Transfer Goal Standby Assistance Gait Goal Standby Assistance Gait Distance 100 Days to Meet Goals 5 Frequency of Treatment Frequency Of Treatment Once a Day Treatment Plan Physical Therapy Treatment Plan Bed Mobility Training,Transfer Training,Gait Training, Therapeutic Exercise,Balance Retraining Other Recommendations and Next Treatment Check orthostatics and Focus progress mobility if pt is able, +2 person assistance nearby if able Recommendations To Nursing Amount of Assist Needed 1 Person Assist Discharge Recommendations PT Discharge Recommendations SNF Rehab Transportation Needs at Discharge Wheelchair/Cabulance
--- NOTE | 2023-06-17 13:53 | OT.IP.TRT ---
Current Diagnoses Syncope and collapse (06/15/23) Occupational Therapy Treatment Note M2 OT-IP Current Condition Start: 06/16/23 13:16 Freq: Status: Active Protocol: Document 06/16/23 13:17 CGR (Rec: 06/16/23 13:47 CGR [id number]) Occupational Therapy Current Condition Current Condition Evaluation Date 06/16/23 Treatment Diagnosis Fall, orthostatic hypotension, subacute L frontal parietal subdural hematoma Diagnosis Onset Date 06/16/23 M3 OT- IP Subjective and Pain Start: 06/16/23 13:16 Freq: Status: Active Protocol: Document 06/17/23 13:54 [facility] (Rec: 06/17/23 14:03 [facility] [id number]) OT- Subjective Occupational Therapy Visit Type Type Treatment Note Visit Start Time 13:35 Visit Stop Time 13:53 Total Visit Minutes 18 Occupational Therapy Visit Comments Patient Comments Pt not wanting to get up. Patient/Caregiver Goals To go home. OT Pain Assessment Pain When Pain Assessed At Rest Pain Present Pain Present Denied Pain M4 OT- IP ADL's Start: 06/16/23 13:16 Freq: Status: Active Protocol: Document 06/17/23 13:54 [facility] (Rec: 06/17/23 14:03 [facility] [id number]) OT NCQ-Apwe-Ngyofjz General Evaluation Self-Feeding Ability Independent OT ADL-Grooming Comments OT Grooming Comments Pt declined. OT ADL-Oral Care Comments Oral Care Comments Pt declined. OT ADL-Dressing Comments OT Dressing Comments not performed OT ADL-Toileting Comments OT Toileting Comments not performed OT ADL-Bathing Comments OT Bathing Comments not performed M5 OT- IP IADL's Start: 06/16/23 13:16 Freq: Status: Active Protocol: Document 06/16/23 13:17 CGR (Rec: 06/16/23 13:47 CGR [id number]) OT-Instrumental Activities of Daily Living Deficits IADL Deficits Identified No Deficits Home Safety Awareness Awareness of Need for Assistance at Home Good Awareness Ability to Problem Solve Emergency Able to Problem Solve Situations Medication Management Medication Management No Deficits Identified Money Management Money Management No Deficits Identified Meal Preparation Meal Preparation No Deficits Identified Sheeter Machine Operator Sheeter Machine Operator Caregiver Provides Assist Driving Driving Concerns Identified Regarding Safety Driving Comments Pt states that he is the primary driver operator. M6 OT- IP Functional Cognition Start: 06/16/23 13:16 Freq: Status: Active Protocol: Document 06/17/23 13:54 [facility] (Rec: 06/17/23 14:03 [facility] [id number]) Cognitive Factors Limiting Selfcare Function Cognitive Tests SLUMS Pt scored 25/30 which implies mild neurocognitive deficits. Pt able to recall 10 animal in one minute, able to recall 3/5 objects after time passed, and able to answer 3/4 questions right after paragraph read. Pt admits he is not thinking as well as he usually does due to his pain and lack of sleep. M8 OT- IP Objective Assessments Start: 06/16/23 13:16 Freq: Status: Active Protocol: Document 06/16/23 13:17 CGR (Rec: 06/16/23 13:47 CGR [id number]) OT Gross Range of Motion Upper Extremity Range of Motion Assessment Within Functional Limits ROM Impairments rib pain impacting R arm movement OT Strength Upper Extremity Strength Assessment Within Functional Limits Comments Strength Comments R shld not tested, 4+/5 throughout OT- Coordination Assessment Upper Extremity Finger to Nose Test Within Functional Limits Finger Tapping Test Within Functional Limits OT-Muscle Tone Assessment Muscle Tone WNL Yes OT Sensation Assessment Edema Edema Absent M9 OT- IP Assessment and Plan Start: 06/16/23 13:16 Freq: Status: Active Protocol: Document 06/17/23 13:54 [facility] (Rec: 06/17/23 14:03 [facility] [id number]) OT Summary Assessment and Plan Potential Rehabilitation Potential Excellent Analytic Complexity at Evaluation Moderate Summary OT Impairments Pain,Balance,Functional Cognition,Functional Mobility, Grooming,Dressing,Toileting, Bathing,Toilet Transfers, Shower Transfers,Activity Tolerance Progress Towards Goals Progressing Toward Goals,Slow Progress due to Pain Assessment Summary Pt not wanting to get up at this time due to having pain when he moves. Educated to pt the importance of moving otherwise he will just get weaker. Pt insists that he is not ready to go home but not wanting to go to skilled rehab . Pt states his would not be able to pick him up if he falls on the floor. Pt states at his current level his would be able to give enough assist at this time to assist with his needs. Pending pt's abilities and pt's progress home with versus skilled rehab. Able to assess pt's congition and her scored 25/30 which implies mild neurocognitive deficits. Goals Grooming Goal Independent Dressing Goal Independent Toileting Goal Independent Bathing Goal Independent Toilet Transfer Goal Independent Shower Transfer Goal Independent Days to Meet Goals 4 Frequency of Treatment Frequency Of Treatment Once a Day Treatment Plan OT Treatment Plan ADL Training,Functional Mobility,Patient/Family Education,Discharge Planning Discharge Recommendations OT Discharge Recommendations Home with Assistance,Home vs SNF Transportation Needs at Discharge Private Vehicle
--- NOTE | 2023-06-17 13:58 | PM.PN.1 ---
Subjective Subjective Interval history: 82 M admitted with frequent falls and syncope vs possible seizure. No etoh withdrawal this morning. He feels a bit stronger. Continues to have rib pain. Exam Vital Signs (past 8 hours): - 06/17/23 07:00 06/17/23 10:27 06/17/23 11:00 Temperature 97.5 F L 97.6 F Pulse Rate 66 67 Respiratory Rate 15 17 Blood Pressure 137/71 123/76 Blood Pressure [Orthostatic Lying] 124/63 Blood Pressure [Orthostatic Sitting] 129/74 Blood Pressure [Orthostatic Standing] 116/68 Pulse Oximetry 94 96 Oxygen Flow Rate 0 0 Oxygen Delivery Method Room Air Oxygen Flow Rate 0 Narrative Exam Narrative: GEN: no acute distress, right temporal scalp lac HEENT: moist mucous membranes, PERRL NECK: trachea midline, no JVD CV: regular rate and rhythm, no murmurs PULM: clear bilaterally ABD: soft, nontender, nondistended, no organomegaly EXT: warm and well perfused with no edema NEURO: awake, alert, oriented to person place and time, no focal deficits. Objective Labs 06/16/23 04:30 06/16/23 04:30 Labs: Laboratory Results - last 24 hr 06/15/23 06/16/23 06/16/23 15:12 10:45 10:45 Urine Color Yellow Urine Appearance Clear Urine pH 5.0 Ur Specific [place] >=1.030 H Urine Protein Negative Urine Glucose (UA) Negative Urine Ketones 2+ H Urine Occult Blood Negative Urine Nitrate Negative Urine Bilirubin 1+ H Ur Bilirubin Confirm Negative Urine Urobilinogen 1.0 Ur Leukocyte Esterase Negative Urine RBC None seen Urine WBC None seen Ur Squamous Epith Cells None seen Urine Bacteria None seen Ur Culture Indicated? Cult not indicated Micro UA Comment N U Opiates 300ng/mL cut Positive H Ur Oxycodone Screen Negative Urine Methadone Screen Negative Ur Barbiturates Screen Negative U Tricyclic Antidepress Negative Ur Phencyclidine Scrn Negative Ur Amphetamines Screen Negative U Methamphetamines Scrn Negative Ur MDMA Scrn (Ecstasy) Negative U Benzodiazepines Scrn Negative Urine Cocaine Screen Negative U Marijuana (THC) Screen Negative Hepatitis A IgM Ab Negative Hep Bs Antigen Negative Hep B Core IgM Ab Negative Hepatitis C Antibody Non reactive Hep C Ab Signal/Cutoff Comment [facility] Medical History (Updated 06/15/23 @ 18:51 by Charmaine Alegria MD) Alcoholic pancreatitis Combined hyperlipidemia Concussion Essential tremor Falls frequently Fatty liver GERD (gastroesophageal reflux disease) Intraparenchymal hemorrhage of brain Macrocytosis Right fibular fracture Thrombocytopenia Surgical History S/P total hip arthroplasty Status post colonoscopy Status post radical cystoprostatectomy Family History Father Prostate cancer Kidney problem Mother Old age Social History household members: spouse Smoking Status: Former smoker Tobacco: How many years used: 50 second hand exposure: No alcohol intake: current substance use type: does not use Assessment & Plan Assessment & Plan narrative: # syncope with possible seizure, CVA, and subdural hematoma, with orthostatic hypotension -patient had syncopal episode at home and then another in the ED, once he arrived to the floor patient had another episode of brief unresponsiveness and rigidity per nursing. Another episode on day 1. BP afterwards was low and this may be compatible with orthostatic hypotension. However cannot definitively rule out seizure given MRI findings of possible lacunar infarct and a subdural hematoma so will continue keppra. -CT head negative, MR brain with subdural hematoma, hemangioma, and possible small lacunar acute infarct. -Keppra 1 g b.i.d. ordered, transitioned to 500 mg BID orally. -likely due to poor po intake, low BP and malnutrition causing vasovagal syncope -TTE without obvious etiology for syncope, normal EF and no significant valvular pathology. -Q shift orthostatics, they continue to improve after fluids were given without need for midodrine. -continue tele -okay to continue PT/OT. -added asa 81 mg daily and statin given MRI with lacunar infarct. -SLUMS . # daily alcohol use with dependence -drinks 3 glasses daily of 2 fingers of whiskey, ethanol level 189 on admission. -CIWA -MV, thiamine and folate -dietary consult -recommended cessation but patient not wanting to stop drinking # right-sided rib pain -likely from fall, no fractures on CXR -lidoderm patch daily # alcoholic hepatitis -AST 212 and ALT 110, likely due to alcohol use -hepatitis panel unremarkable. -abdominal ultrasound with thickening and a gallstone, however no current symptoms. Continue to monitor liver enzymes. # severe hypomagnesemia -Mag of 1 in ED, s/p 2 g -gave another 4 g, now improved to 2.3. -monitor mg with lab testing. # chronic thrombocytopenia -platelets 109k, likely liver related -monitor with cbc # GERD -continue PPI Code status is DNR. DVT prophylaxis will hold today as plt count fell, along with findings of subdural hematoma and lacunar infarct. Risks outweigh benefits at this time. Proxy is Dispo: home vs snf depending on continued progress with thearpies, patient hopeful for home.
--- NOTE | 2023-06-17 15:11 | PT-IP ANOTE ---
Caregiver training scheduled for tomorrow (06/18) at 10:30 with .
[2023-06-17] MEDS: GABAPENTIN 300 MG CAPSULE PO ×2 (15:21→20:15)
--- NOTE | 2023-06-17 16:19 | CM.DPC ---
DCP Continued: CHANNEL MARKETING MANAGER reviewed EMR. PT/OT rec SNF. From provider, patient likely cleared to d/c tomorrow. CIWA 0 as of 1600. CHANNEL MARKETING MANAGER entered room and introduced self and role. Patient resting in bed and appeared A/Ox4. Patient adamantly refuses SNF at this time. Patient refuses to let this CHANNEL MARKETING MANAGER send out referrals anywhere. Patient reports being worried about going home with in case he falls. CHANNEL MARKETING MANAGER explained that he is free to make his own choices, but his choice at this time is either home with spouse or SNF, he cannot stay here for the foreseeable penitentiary future. Patient appeared frustrated by this. Patient reports he has additional family in area but none that can stay with him upon d/c. Patient agreed to let this CHANNEL MARKETING MANAGER speak with regarding d/c plan. Patient continues to deny ETOH resources. CHANNEL MARKETING MANAGER spoke with Margarita via phone. Margarita appears to also want patient to continue to remain [facility] the [facility]. CHANNEL MARKETING MANAGER arranged caregiver training with spouse, PT, and patient for 1030 tomorrow morning for patient and spouse to have a better understanding of if they can manage needs at home. Plan: likely home with spouse when medically stable. CM team will continue to follow closely. DONTAE Rdz
[2023-06-17] MEDS: ATORVASTATIN 20 MG TABLET 40 MG PO (20:15)
[2023-06-18] VITALS (7 sets, daily range): BP systolic 88–157; BP diastolic 63–88; PULSE 60–101; RESP 16–18; TEMP 36.2–37.2; O2SAT 95–96
[2023-06-18 05:28] LABS: Alanine Aminotransferase 61 IU/L (<50); Albumin 3.6 g/dL (3.5-5.0); Albumin Globulin Ratio 1.3 (1.0-2.8); Alkaline Phosphatase 39 U/L (38-126); Aspartate Aminotransferase 83 IU/L (17-59); BUN Creatinine Ratio 15.6 (6-22); Bilirubin Total 1.4 mg/dL (0.2-1.3); Blood Urea Nitrogen 12 mg/dL (9-20); Calcium 9.2 mg/dL (8.4-10.2); Carbon Dioxide 30 mmol/L (22-32); Chloride 96 mmol/L (98-107); Estimated Glomerular Filt Rate > 60 mL/min (>60); Globulin 2.7 g/dL (1.7-4.1); Glucose 93 mg/dL (80-110); HEMOLYSIS < 15 (0-50); Potassium 3.5 mmol/L (3.4-5.1); Sodium 133 mmol/L (137-145); Total Protein 6.3 g/dL (6.3-8.2)
[2023-06-18 05:29] LABS: Add Manual Diff / Slide Review NO; Basophils Absolute Auto 0 /uL (0-100); Basophils Percent Auto 0.9 % (0-2); Eosinophils Absolute Auto 300 /uL (0-450); Eosinophils Percent Auto 9.2 % (2-4); Hematocrit 39.7 % (41-53); Hemoglobin 13.7 g/dL (13.5-17.5); Lymphocytes Absolute Auto 1000 /uL (1100-4500); Mean Corpuscular HGB Conc 34.5 % (30-36); Mean Corpuscular Hemoglobin 35.3 PG (26-34); Mean Corpuscular Volume 102.3 fL (80-100); Monocytes Absolute Auto 400 /uL (0-900); Monocytes Percent Auto 12.3 % (3-14); Neutrophils Absolute Auto 1700 /uL (1500-7000); Neutrophils Percent Auto 48.6 % (50-75); Platelet Count 73 X10^3/uL (150-400); Red Blood Cell Count 3.88 X10^6/uL (4.5-5.9); Red Cell Distribution Width 13.7 % (11.6-14.8); White Blood Cell Count 3.4 X10^3/uL (4.5-11.0)
[2023-06-18] MEDS: PANTOPRAZOLE DR 20 MG TABLET 40 MG PO (07:00)
[2023-06-18] MEDS: GABAPENTIN 300 MG CAPSULE PO ×3 (08:33→20:28)
[2023-06-18] MEDS: ASPIRIN EC 81 MG TABLET PO (08:33)
[2023-06-18] MEDS: LIDOCAINE PATCH 1 EACH ADH..PATCH TOP (08:34)
[2023-06-18] MEDS: MULTIVITAMIN 1 TABLET 1 TAB PO (08:34)
[2023-06-18] MEDS: THIAMINE 100 MG TABLET PO (08:34)
[2023-06-18] MEDS: FOLIC ACID 1 MG TABLET PO (08:34)
[2023-06-18] MEDS: levETIRAcetam 250 MG TABLET 500 MG PO ×2 (08:34→20:28)
--- NOTE | 2023-06-18 10:20 | PT.IPTN ---
Current Diagnoses Syncope and collapse (06/15/23) Physical Therapy Treatment Note M2 PT-IP Current Condition Start: 06/16/23 08:06 Freq: NEEDED Status: Active Protocol: Document 06/16/23 08:37 MB (Rec: 06/16/23 11:54 MB [id number]) Physical Therapy Current Condition Current Condition Evaluation Date 06/16/23 Treatment Diagnosis Dizziness when lying on left side in the bed Onset Date One day ago M3 PT-IP Subjective Start: 06/16/23 08:06 Freq: NEEDED Status: Active Protocol: Document 06/18/23 10:20 AB (Rec: 06/18/23 14:31 AB [id number]) Subjective Physical Therapy Visit Type Type Treatment Note Visit Start Time 10:20 Visit Stop Time 11:10 Total Visit Minutes 50 Number of MICROFILM DUPLICATING UNIT SUPERVISOR Visits 0 Physical Therapy Visit Comments Patient Comments agreeable to do PT Therapy Pain Assessment Pain When Pain Assessed During Mobility Location right ribs/back Intensity 2 Scale Used Numeric (0 - 10) Pain Management Techniques Distraction,Modification of Treatment,Re-positioning, Timing of Activity with Medications M4 PT-IP Mobility and Gait Start: 06/16/23 08:06 Freq: NEEDED Status: Active Protocol: Document 06/18/23 10:20 AB (Rec: 06/18/23 14:31 AB [id number]) PT-Bed Mobility Assessment Supine to Sit Supine to Sit Maximum Assistance,Head of Bed Elevated,Bedrails PT-Transfer Assessment Sit to and From Stand Sit to and from Stand Moderate Assistance,Maximum Assistance,1 Person Assistance ,Use of Upper Extremities Equipment Transfer Assistive Device Gait Belt,Front Wheeled Walker Orthotic/Prosthetic Devices or Brace: No Transfers Transfer Destination Chair Transfer Technique Stand Step Pivot Transfer Ability Level of Assist Moderate Assistance,1 Person Assistance,Use of Upper Extremities Comments Mobility Comments pt supine in bed and agreeable to do PT. spouse in room for caregiver traininig. BP monitored. BP in supine: 144/75. pt completed supine to sit max A. educated spouse on how to assist pt but unable to assist pt with bed mobility. spouse stated that they have a recliner that pt will sleep on . pt sat on EOB CGA. BP checked: 137/72. no c/o dizziness. pt sat on EOB for ~ 2 more minutes. BP rechecked : 131/69. educated spouse on use of safetly belt and how to assist pt. completed sit to stand initially with PT assisting. pt needing 4 attempts to be able to stand mod to max A and max cues. pt able to stand using FWW for support CGA. BP in standin/63. instructed pt to sit back down . no c/o dizziness but with ( +) tremors. BP in sittin/71. pt agreed to sit up on the chair. spouse attempted to assist pt with sit to stand using safety belt but unable. PT assisted pt. pt completed sit to stand max A and step transfers using FWW mod to max A and max cues. positioned pt on the chair. call light and table placed wtihin reach. BP after transfers: 109/79. nurse aware. Gait Assessment Comments Gait Comments unable to ambulate due to orthostatic hypotension M5 PT-IP Objective Assessments Start: 06/16/23 08:06 Freq: NEEDED Status: Active Protocol: Document 06/17/23 10:20 SAK (Rec: 06/17/23 10:27 [facility] [id number]) Orientation Orientation/Cognition Level of Alertness Alert Orientation Name,Age,Birthday,Month,Date, Year,Day of Week,Place, Situation Language Function Ability Hard of Hearing Safety Awareness Decreased Safety Awareness Memory Description No Deficits Noted M6 PT-IP Treatment Start: 06/16/23 08:06 Freq: NEEDED Status: Active Protocol: Document 06/18/23 10:20 AB (Rec: 06/18/23 14:31 AB [id number]) Physical Therapy Treatment Education Education Provided Safety M7 PT-IP Assessment and Plan Start: 06/16/23 08:06 Freq: NEEDED Status: Active Protocol: Document 06/18/23 10:20 AB (Rec: 06/18/23 14:31 AB [id number]) PT Summary Assessment and Plan Potential Rehabilitation Potential Fair Summary Impairments Pain,ROM,Strength,Balance, Coordination,Sensation,Tone, Cognition,Bed Mobility, Transfers,Gait,Activity Tolerance Progress Towards Goals Slow Progress due to Medical Issues,Slow Progress due to Activity Tolerance,Slow Progress - Other Assessment Summary caregiver training initiated but spouse was unable to safely assist pt with bed mobility and transfers. training also limited due to pt's orthostatic hypotension and unable to ambulate this session. informed pt and spouse regarding SNF rehab and agreeable. case resolution specialist informed. will continue PT to improve overall strength and mobility level. Goals Bed Mobility Goal Independent Transfer Goal Standby Assistance,Front Wheeled Walker Gait Goal Standby Assistance,Front Wheel Walker Gait Distance 100 Other Goals improve transfers and ambulation using FWW 250 ft mod I uup/down 2 steps using SPC/INSPECTOR MACHINE CUT GLASS CGA Days to Meet Goals 10 Frequency of Treatment Frequency Of Treatment Once a Day Treatment Plan Physical Therapy Treatment Plan Bed Mobility Training,Transfer Training,Gait Training, Therapeutic Exercise,Balance Retraining Precautions Other Precautions orthostatic hypotension Recommendations To Nursing Amount of Assist Needed 1 Person Assist Discharge Recommendations PT Discharge Recommendations SNF Rehab Transportation Needs at Discharge Wheelchair/Cabulance
--- NOTE | 2023-06-18 11:27 | OT.IP.TRT ---
Current Diagnoses Syncope and collapse (06/15/23) Occupational Therapy Treatment Note M2 OT-IP Current Condition Start: 06/16/23 13:16 Freq: Status: Active Protocol: Document 06/16/23 13:17 CGR (Rec: 06/16/23 13:47 CGR [id number]) Occupational Therapy Current Condition Current Condition Evaluation Date 06/16/23 Treatment Diagnosis Fall, orthostatic hypotension, subacute L frontal parietal subdural hematoma Diagnosis Onset Date 06/16/23 M3 OT- IP Subjective and Pain Start: 06/16/23 13:16 Freq: Status: Active Protocol: Document 06/18/23 11:28 [facility] (Rec: 06/18/23 11:34 [facility] [id number]) OT- Subjective Occupational Therapy Visit Type Type Treatment Note Visit Start Time 11:10 Visit Stop Time 11:27 Total Visit Minutes 17 Occupational Therapy Visit Comments Patient Comments Pt just finishing with PT and now agreed to go to skilled rehab. Patient/Caregiver Goals TO get better. OT Pain Assessment Pain Present Pain Present Pain Reported Location right ribs/back Pain Behaviors Facial Grimacing,Wincing M4 OT- IP ADL's Start: 06/16/23 13:16 Freq: Status: Active Protocol: Document 06/18/23 11:28 [facility] (Rec: 06/18/23 11:34 [facility] [id number]) OT [id number]-[id number] General Evaluation Self-Feeding Ability Independent OT ADL-Grooming Comments OT Grooming Comments Pt states did earlier. OT ADL-Oral Care Comments Oral Care Comments Pt states did earlier. OT ADL-Dressing General Eval Lower Body Dressing Ability Standby Assistance,Moderate Assistance Comments OT Dressing Comments Pt able to practice use of sock aid and physician/allergy/immunology to be able to laurie/doff his socks while seated. Pt will require assist to help pull up his clothing over his hips when standing. OT ADL-Toileting Comments OT Toileting Comments not performed OT ADL-Bathing Comments OT Bathing Comments not performed M5 OT- IP IADL's Start: 06/16/23 13:16 Freq: Status: Active Protocol: Document 06/16/23 13:17 CGR (Rec: 06/16/23 13:47 CGR [id number]) OT-Instrumental Activities of Daily Living Deficits IADL Deficits Identified No Deficits Home Safety Awareness Awareness of Need for Assistance at Home Good Awareness Ability to Problem Solve Emergency Able to Problem Solve Situations Medication Management Medication Management No Deficits Identified Money Management Money Management No Deficits Identified Meal Preparation Meal Preparation No Deficits Identified Precision Jig Grinder Precision Jig Grinder Caregiver Provides Assist Driving Driving Concerns Identified Regarding Safety Driving Comments 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 M6 OT- IP Functional Cognition Start: 06/16/23 13:16 Freq: Status: Active Protocol: Document 06/18/23 11:28 [facility] (Rec: 06/18/23 11:34 [facility] [id number]) Cognitive Factors Limiting Selfcare Function Cognitive Comments Cognitive Assessment Comments Pt agreed that at this time it would be best to go to skilled rehab as his current status is too much for his to assist at this time. OT- Balance Assessment Sitting Balance and Reactions Static Sitting Balance Ability Good Dynamic Sitting Balance Ability Good M9 OT- IP Assessment and Plan Start: 06/16/23 13:16 Freq: Status: Active Protocol: Document 06/18/23 11:28 [facility] (Rec: 06/18/23 11:34 [facility] [id number]) OT Summary Assessment and Plan Potential Rehabilitation Potential Excellent Analytic Complexity at Evaluation Moderate Summary OT Impairments Pain,Strength,Balance, Functional Mobility,Grooming, Dressing,Toileting,Bathing, Toilet Transfers,Shower Transfers,Activity Tolerance Progress Towards Goals Slow Progress due to Pain Assessment Summary Pt just completed caregiver training with PT and his and now agreeing to go to skilled rehab at this time. Goals Grooming Goal Independent Dressing Goal Independent Toileting Goal Independent Bathing Goal Independent Toilet Transfer Goal Independent Shower Transfer Goal Independent Days to Meet Goals 10 Frequency of Treatment Frequency Of Treatment Once a Day Treatment Plan OT Treatment Plan ADL Training,Functional Mobility,Patient/Family Education,Discharge Planning Other Treatment Recommendations and Next shower Treatment Focus Discharge Recommendations OT Discharge Recommendations SNF Rehab Transportation Needs at Discharge Wheelchair/Cabulance
--- NOTE | 2023-06-18 13:58 | PM.PN.1 ---
Subjective Subjective Interval history: 82 M admitted with frequent falls and syncope vs possible seizure. No etoh withdrawal this morning. He feels a bit stronger. Continues to have rib pain. He had caregiver training this morning and was agreeable to SNF rehab given continued difficulties. Exam Vital Signs (past 8 hours): - 06/18/23 07:00 06/18/23 10:50 06/18/23 11:00 Temperature 97.6 F 97.5 F L Pulse Rate 69 85 Pulse Rate [Orthostatic Sitting] 79 Pulse Rate [Orthostatic Standing] 101 H Respiratory Rate 18 18 Blood Pressure 137/71 111/78 Blood Pressure [Orthostatic Sitting] 101/71 Blood Pressure [Orthostatic Standing] 88/63 L Pulse Oximetry 95 96 Oxygen Flow Rate 0 0 Oxygen Delivery Method Room Air Oxygen Flow Rate 0 Narrative Exam Narrative: GEN: no acute distress, right temporal scalp lac HEENT: moist mucous membranes, PERRL NECK: trachea midline, no JVD CV: regular rate and rhythm, no murmurs PULM: clear bilaterally ABD: soft, nontender, nondistended, no organomegaly EXT: warm and well perfused with no edema NEURO: awake, alert, oriented to person place and time, no focal deficits. Objective Labs 06/18/23 04:05 06/18/23 04:05 Labs: Laboratory Results - last 24 hr 06/18/23 04:05 WBC 3.4 L RBC 3.88 L Hgb 13.7 Hct 39.7 L MCV 102.3 H MCH 35.3 H MCHC 34.5 RDW 13.7 Plt Count 73 L Neut % (Auto) 48.6 L Lymph % (Auto) 29.0 [place] % (Auto) 12.3 Eos % (Auto) 9.2 H Baso % (Auto) 0.9 Neut # (Auto) 1700 Lymph # (Auto) 1000 L [place] # (Auto) 400 Eos # (Auto) 300 Baso # (Auto) 0 Sodium 133 L Potassium 3.5 Chloride 96 L Carbon Dioxide 30 BUN 12 Creatinine 0.77 Estimated GFR > 60 BUN/Creatinine Ratio 15.6 Glucose 93 Calcium 9.2 Total Bilirubin 1.4 H AST 83 H ALT 61 H Alkaline Phosphatase 39 Total Protein 6.3 Albumin 3.6 Globulin 2.7 Albumin/Globulin Ratio 1.3 [facility] Medical History (Updated 06/15/23 @ 18:51 by Charmaine Alegria MD) Thrombocytopenia Macrocytosis Alcoholic pancreatitis GERD (gastroesophageal reflux disease) Combined hyperlipidemia Falls frequently Intraparenchymal hemorrhage of brain Essential tremor Fatty liver Concussion Right fibular fracture Surgical History Status post radical cystoprostatectomy Status post colonoscopy S/P total hip arthroplasty Family History Father Prostate cancer Kidney problem Mother Old age Social History household members: spouse Smoking Status: Former smoker Tobacco: How many years used: 50 second hand exposure: No alcohol intake: current substance use type: does not use Assessment & Plan Assessment & Plan narrative: # syncope with possible seizure, CVA, and subdural hematoma, with orthostatic hypotension -patient had syncopal episode at home and then another in the ED, once he arrived to the floor patient had another episode of brief unresponsiveness and rigidity per nursing. Another episode on day 1. BP afterwards was low and this may be compatible with orthostatic hypotension. However cannot definitively rule out seizure given MRI findings of possible lacunar infarct and a subdural hematoma so will continue keppra. -CT head negative, MR brain with subdural hematoma, hemangioma, and possible small lacunar acute infarct. -Keppra 1 g b.i.d. ordered, transitioned to 500 mg BID orally. Recommend outpatient follow up with neurology. -likely due to poor po intake, low BP and malnutrition causing vasovagal syncope -TTE without obvious etiology for syncope, normal EF and no significant valvular pathology. -Q shift orthostatics, they continue to improve after fluids were given without need for midodrine. -continue tele -okay to continue PT/OT. -added asa 81 mg daily and statin given MRI with lacunar infarct. -SLUMS 25/30. # daily alcohol use with dependence -drinks 3 glasses daily of 2 fingers of whiskey, ethanol level 189 on admission. -CIWA -MV, thiamine and folate -dietary consult -recommended cessation but patient not wanting to stop drinking # right-sided rib pain -likely from fall, no fractures on CXR -lidoderm patch daily # alcoholic hepatitis -AST 212 and ALT 110, likely due to alcohol use -hepatitis panel unremarkable. -abdominal ultrasound with thickening and a gallstone, however no current symptoms. Continue to monitor liver enzymes. # severe hypomagnesemia -Mag of 1 in ED, s/p 2 g -gave another 4 g, now improved to 2.3. -monitor mg with lab testing. # chronic thrombocytopenia -platelets 109k, likely liver related -monitor with cbc # GERD -continue PPI Code status is DNR. DVT prophylaxis will hold today as plt count fell, along with findings of subdural hematoma and lacunar infarct. Risks outweigh benefits at this time. Proxy is Dispo: SNF after caregiver training session today with PT/OT.
--- NOTE | 2023-06-18 14:53 | CM.DPNOTE ---
DCP Note Therapies recommending SNF and patient now agreeable. Patient would like to stay in [place] if possible. Referral discussed and reviewed with Massiel at [facility], Massiel accepts and has started auth through [facility] today. Dr Winkler updated. Plan: Discharge to [facility] H+R anticipated as long as [facility] auth is secured. CM team following closely. PASRR completed. PRATEEK
[2023-06-18] MEDS: ATORVASTATIN 20 MG TABLET 40 MG PO (20:29)
[2023-06-19] VITALS (8 sets, daily range): BP systolic 125–153; BP diastolic 76–133; PULSE 75–102; RESP 16–19; TEMP 36.9–38.2; O2SAT 93–95
[2023-06-19 05:20] LABS: Methylmalonic Acid,Serum 56 nmol/L (0-378)
[2023-06-19 05:26] LABS: Add Manual Diff / Slide Review NO; Basophils Absolute Auto 0 /uL (0-100); Basophils Percent Auto 0.7 % (0-2); Eosinophils Absolute Auto 300 /uL (0-450); Eosinophils Percent Auto 5.3 % (2-4); Hematocrit 39.5 % (41-53); Hemoglobin 13.6 g/dL (13.5-17.5); Lymphocytes Absolute Auto 600 /uL (1100-4500); Lymphocytes Percent Auto 11.6 % (25-40); Mean Corpuscular HGB Conc 34.4 % (30-36); Mean Corpuscular Volume 101.9 fL (80-100); Monocytes Absolute Auto 500 /uL (0-900); Monocytes Percent Auto 11.3 % (3-14); Neutrophils Absolute Auto 3400 /uL (1500-7000); Neutrophils Percent Auto 71.1 % (50-75); Platelet Count 99 X10^3/uL (150-400); Red Blood Cell Count 3.88 X10^6/uL (4.5-5.9); Red Cell Distribution Width 13.4 % (11.6-14.8); White Blood Cell Count 4.8 X10^3/uL (4.5-11.0)
[2023-06-19 05:36] LABS: Alanine Aminotransferase 60 IU/L (<50); Albumin 3.6 g/dL (3.5-5.0); Albumin Globulin Ratio 1.2 (1.0-2.8); Alkaline Phosphatase 40 U/L (38-126); Aspartate Aminotransferase 80 IU/L (17-59); Calcium 9.2 mg/dL (8.4-10.2); Carbon Dioxide 29 mmol/L (22-32); Chloride 93 mmol/L (98-107); Globulin 2.9 g/dL (1.7-4.1); HEMOLYSIS < 15 (0-50); Potassium 3.7 mmol/L (3.4-5.1); Sodium 129 mmol/L (137-145); Total Protein 6.5 g/dL (6.3-8.2)
[2023-06-19 05:38] LABS: BUN Creatinine Ratio 18.1 (6-22); Bilirubin Total 1.5 mg/dL (0.2-1.3); Blood Urea Nitrogen 15 mg/dL (9-20); Estimated Glomerular Filt Rate > 60 mL/min (>60); Glucose 104 mg/dL (80-110)
[2023-06-19] MEDS: PANTOPRAZOLE DR 20 MG TABLET 40 MG PO (06:06)
[2023-06-19] MEDS: MULTIVITAMIN 1 TABLET 1 TAB PO (09:25)
[2023-06-19] MEDS: LIDOCAINE PATCH 1 EACH ADH..PATCH TOP (09:25)
[2023-06-19] MEDS: THIAMINE 100 MG TABLET PO (09:25)
[2023-06-19] MEDS: levETIRAcetam 250 MG TABLET 500 MG PO ×2 (09:25→20:32)
[2023-06-19] MEDS: GABAPENTIN 300 MG CAPSULE PO ×3 (09:25→20:32)
[2023-06-19] MEDS: ASPIRIN EC 81 MG TABLET PO (09:25)
[2023-06-19] MEDS: FOLIC ACID 1 MG TABLET PO (09:26)
--- NOTE | 2023-06-19 09:53 | PT.IPTN ---
Current Diagnoses Syncope and collapse (06/15/23) Physical Therapy Treatment Note M2 PT-IP Current Condition Start: 06/16/23 08:06 Freq: NEEDED Status: Active Protocol: Document 06/16/23 08:37 MB (Rec: 06/16/23 11:54 MB [id number]) Physical Therapy Current Condition Current Condition Evaluation Date 06/16/23 Treatment Diagnosis Dizziness when lying on left side in the bed Onset Date One day ago M3 PT-IP Subjective Start: 06/16/23 08:06 Freq: NEEDED Status: Active Protocol: Document 06/19/23 09:55 AB (Rec: 06/19/23 10:23 AB [id number]) Subjective Physical Therapy Visit Type Type Treatment Note Visit Start Time 09:03 Visit Stop Time 09:53 Total Visit Minutes 50 Physical Therapy Visit Comments Patient Comments Pt presents in bed and is agreeable to PT session this morning. He reports mild pain in ribs when he moves. Therapy Pain Assessment Pain When Pain Assessed During Mobility Pain Present Pain Present Pain Reported Location right ribs/back Scale Used unable to scale Description With Movement Pain Behaviors Facial Grimacing,Wincing Pain Management Techniques Re-positioning M4 PT-IP Mobility and Gait Start: 06/16/23 08:06 Freq: NEEDED Status: Active Protocol: Document 06/19/23 09:55 AB (Rec: 06/19/23 10:23 AB [id number]) PT-Bed Mobility Assessment Supine to Sit Supine to Sit Moderate Assistance,Maximum Assistance,1 Person Assistance ,Head of Bed Elevated,Bedrails Sit to Supine Sit to Supine Maximum Assistance,2 Person Assistance,Bedrails Scooting Scooting to Edge of Bed Moderate Assistance PT-Transfer Assessment Sit to and From Stand Sit to and from Stand Moderate Assistance,Maximum Assistance,Use of Upper Extremities Equipment Transfer Assistive Device Front Wheeled Walker Transfers Transfer Destination Bed,Chair,Bedside Commode Transfer Technique Stand Step Pivot Transfer Ability Level of Assist Moderate Assistance,Maximum Assistance,1 Person Assistance ,Use of Upper Extremities Comments Mobility Comments Pt required mod-maxA x1 and elevated HOB with use of bed rails to perform supine<>sit at EOB with verbal cues for sequencing and for efficiency. Once sitting at EOB, pt's BP is 127/62 mmHg, and pt reports being asymptomatic. Pt performed STS with modA x1 with FWW, and once standing pt reports having diarrhea and needing to use the bathroom, therefore PT is unable to take BP in standing. Pt begins to have BM before being able to mobilize further, and pt then transfers using stand step pivot transfer with modA to chair. Pt denies any symptoms, and states he would like to use BSC. PT placed BSC next to chair, which pt is able to transfer to with modA and FWW again using stand step pivot transfer. Pt is given time to finish BM, and once done pt performs STS with maxA x1 from PT, while FIELD CARE COORDINATOR assists with pericare. While standing, pt reports feeling dizzy, and beings to sit back to BSC. Pt begins to lean havily to left side with head dropping down and tenses up, pulling FWW towards him. He did not lose consciousness as his eyes remained open, but he takes extended amount of time to respond to PT. FIELD CARE COORDINATOR left to get RN, RN came to room and helped to stimulate the pt. BP at this time while sitting is 153/133 mmHg. Pt then transferred from BSC to bed with maxA x2-3 using squat pivot transfer. Pt was then assisted to supine with modA x2. Once in supine position, the pt was assited by RN and FIELD CARE COORDINATOR to perform pericare. In supine, pt's BP returned to 125/79 mmHg. At end of session , all of pt's needs were met and call light was placed within reach. Gait Assessment Comments Gait Comments Did not ambulate due to symptoms, but is able to take lateral steps for stand step pivot transfer with FWW. PT-Balance Assessment Sitting Balance and Reactions Static Sitting Balance Ability Good Dynamic Sitting Balance Ability Fair Standing Balance and Reactions Static Standing Balance Ability Fair Dynamic Standing Balance Ability Poor Device Used FWW M5 PT-IP Objective Assessments Start: 06/16/23 08:06 Freq: NEEDED Status: Active Protocol: Document 06/17/23 10:20 YURI (Rec: 06/17/23 10:27 [facility] [id number]) Orientation Orientation/Cognition Level of Alertness Alert Orientation Name,Age,Birthday,Month,Date, Year,Day of Week,Place, Situation Language Function Ability Hard of Hearing Safety Awareness Decreased Safety Awareness Memory Description No Deficits Noted M6 PT-IP Treatment Start: 06/16/23 08:06 Freq: NEEDED Status: Active Protocol: Document 06/19/23 09:55 AB (Rec: 06/19/23 10:23 AB [id number]) Physical Therapy Treatment Education Education Provided Safety M7 PT-IP Assessment and Plan Start: 06/16/23 08:06 Freq: NEEDED Status: Active Protocol: Document 06/19/23 09:55 AB (Rec: 06/19/23 10:23 AB [id number]) PT Summary Assessment and Plan Potential Rehabilitation Potential Fair Summary Impairments Pain,ROM,Strength,Balance, Coordination,Sensation,Tone, Cognition,Bed Mobility, Transfers,Gait,Activity Tolerance Progress Towards Goals Slow Progress due to Medical Issues,Slow Progress due to Activity Tolerance,Slow Progress - Other Assessment Summary Though BP was not taken in standing to assess for orthostatic hypotension due to events, the pt likely had an episode of orthostatic hypotension when performing mobility. See above for more detail. The pt required significantly more assistance today, though this is in part due to his symptoms. He also showed no significant improvement in his ability to perform bed mobility or STS prior to becoming symptomatic. He demonstrates significant weakness and balance deficits in sitting and standing, which are also contributing to his ability to perform functional mobility. Based on his current level of function, PT continues to recommend discharge to SNF. Goals Bed Mobility Goal Independent Transfer Goal Standby Assistance,Front Wheeled Walker Gait Goal Standby Assistance,Front Wheel Walker Gait Distance 100 Other Goals improve transfers and ambulation using FWW 250 ft mod I uup/down 2 steps using SPC/BLOOM CONVEYOR OPERATOR CGA Days to Meet Goals 10 Frequency of Treatment Frequency Of Treatment Once a Day Treatment Plan Physical Therapy Treatment Plan Bed Mobility Training,Transfer Training,Gait Training, Therapeutic Exercise,Balance Retraining Other Recommendations and Next Treatment Check orthostatics and Focus progress mobility if pt is able, +2 person assistance nearby if able. Precautions Other Precautions orthostatic hypotension Recommendations To Nursing Amount of Assist Needed 1 Person Assist,2 Person Assist Discharge Recommendations PT Discharge Recommendations SNF Rehab Transportation Needs at Discharge Wheelchair/Cabulance
--- NOTE | 2023-06-19 12:21 | CM.DPNOTE ---
DCP Note According to discussion in multidisciplinary rounds, Patient is not medically ready for discharge today. Updated Massiel at [facility] H[facility]R. If patient is medically stable tomorrow, there is a bed at [facility] available. JW
--- NOTE | 2023-06-19 12:45 | PM.PN.1 ---
Subjective Subjective Interval history: 82 M admitted with frequent falls and syncope vs possible seizure. No etoh withdrawal this morning. He feels a bit stronger. Continues to have rib pain. He had caregiver training and was agreeable to SNF rehab given continued difficulties. This morning he had another episode of severe orthostasis, discharge to SNF held. Will trial low dose midodrine at 2.5 mg to see if improvement. Exam Vital Signs (past 8 hours): - 06/19/23 08:00 06/19/23 09:30 06/19/23 12:00 Temperature 99 F 99 F Pulse Rate 75 85 Pulse Rate [Orthostatic Lying] 92 H Pulse Rate [Orthostatic Sitting] 94 H Respiratory Rate 16 17 Blood Pressure 146/92 H 125/89 Blood Pressure [Orthostatic Lying] 125/79 Blood Pressure [Orthostatic Sitting] 153/133 H Pulse Oximetry 95 94 Oxygen Delivery Method Room Air Oxygen Flow Rate 0 Narrative Exam Narrative: GEN: no acute distress, right temporal scalp lac HEENT: moist mucous membranes, PERRL NECK: trachea midline, no JVD CV: regular rate and rhythm, no murmurs PULM: clear bilaterally ABD: soft, nontender, nondistended, no organomegaly EXT: warm and well perfused with no edema NEURO: awake, alert, oriented to person place and time, no focal deficits. Objective Labs 06/19/23 04:30 06/19/23 04:30 Labs: Laboratory Results - last 24 hr 06/15/23 06/19/23 16:59 04:30 WBC 4.8 RBC 3.88 L Hgb 13.6 Hct 39.5 L MCV 101.9 H MCH 35.0 H MCHC 34.4 RDW 13.4 Plt Count 99 L Neut % (Auto) 71.1 D Lymph % (Auto) 11.6 L [place] % (Auto) 11.3 Eos % (Auto) 5.3 H Baso % (Auto) 0.7 Neut # (Auto) 3400 Lymph # (Auto) 600 L [place] # (Auto) 500 Eos # (Auto) 300 Baso # (Auto) 0 Sodium 129 L Potassium 3.7 Chloride 93 L Carbon Dioxide 29 BUN 15 Creatinine 0.83 Estimated GFR > 60 BUN/Creatinine Ratio 18.1 Glucose 104 Calcium 9.2 Total Bilirubin 1.5 H AST 80 H ALT 60 H Alkaline Phosphatase 40 Total Protein 6.5 Albumin 3.6 Globulin 2.9 Albumin/Globulin Ratio 1.2 Methylmalonic Acid 56 COUNT INCLUDES THE [facility] Medical History (Updated 06/15/23 @ 18:51 by Charmaine Alegria MD) Thrombocytopenia Macrocytosis Alcoholic pancreatitis GERD (gastroesophageal reflux disease) Combined hyperlipidemia Falls frequently Intraparenchymal hemorrhage of brain Essential tremor Fatty liver Concussion Right fibular fracture Surgical History Status post radical cystoprostatectomy Status post colonoscopy S/P total hip arthroplasty Family History Father Prostate cancer Kidney problem Mother Old age Social History household members: spouse Smoking Status: Former smoker Tobacco: How many years used: 50 second hand exposure: No alcohol intake: current substance use type: does not use Assessment & Plan Assessment & Plan narrative: # syncope with possible seizure, CVA, and subdural hematoma, with orthostatic hypotension -patient had syncopal episode at home and then another in the ED, once he arrived to the floor patient had another episode of brief unresponsiveness and rigidity per nursing. Another episode on day 1. BP afterwards was low and this may be compatible with orthostatic hypotension. However cannot definitively rule out seizure given MRI findings of possible lacunar infarct and a subdural hematoma so will continue keppra. -CT head negative, MR brain with subdural hematoma, hemangioma, and possible small lacunar acute infarct. -Keppra 1 g b.i.d. ordered, transitioned to 500 mg BID orally. Recommend outpatient follow up with neurology. -likely due to poor po intake, low BP and malnutrition causing vasovagal syncope -TTE without obvious etiology for syncope, normal EF and no significant valvular pathology. -Q shift orthostatics, they continue to improve after fluids were given without need for midodrine. -continue tele -okay to continue PT/OT. -added asa 81 mg daily and statin given MRI with lacunar infarct. -SLUMS . -continues to have intermittent orthostasis. Will trial 2.5 mg TID to see if improvement. # daily alcohol use with dependence -drinks 3 glasses daily of 2 fingers of whiskey, ethanol level 189 on admission. -CIWA -MV, thiamine and folate -dietary consult -recommended cessation but patient not wanting to stop drinking # right-sided rib pain -likely from fall, no fractures on CXR -lidoderm patch daily # alcoholic hepatitis -AST 212 and ALT 110, likely due to alcohol use -hepatitis panel unremarkable. -abdominal ultrasound with thickening and a gallstone, however no current symptoms. Can stop trending liver enzymes given continued improvement today. # severe hypomagnesemia -Mag of 1 in ED, s/p 2 g -gave another 4 g, now improved to 2.3. -monitor mg with lab testing. # chronic thrombocytopenia -platelets 109k, likely liver related -monitor with cbc, now improved up to 99K today. # GERD -continue PPI Code status is DNR. DVT prophylaxis will hold today as plt count fell, along with findings of subdural hematoma and lacunar infarct. Risks outweigh benefits at this time. Proxy is Dispo: SNF, pending improvement in orthostatics. Will trial midodrine as noted above.
[2023-06-19] MEDS: MIDODRINE HCL 5 MG TABLET 2.5 MG PO ×2 (13:21→17:34)
--- NOTE | 2023-06-19 15:53 | OT.IP.TRT ---
Current Diagnoses Syncope and collapse (06/15/23) Occupational Therapy Treatment Note M2 OT-IP Current Condition Start: 06/16/23 13:16 Freq: Status: Active Protocol: Document 06/16/23 13:17 CGR (Rec: 06/16/23 13:47 CGR [id number]) Occupational Therapy Current Condition Current Condition Evaluation Date 06/16/23 Treatment Diagnosis Fall, orthostatic hypotension, subacute L frontal parietal subdural hematom Diagnosis Onset Date 06/16/23 M3 OT- IP Subjective and Pain Start: 06/16/23 13:16 Freq: Status: Active Protocol: Document 06/19/23 15:59 [facility] (Rec: 06/19/23 16:09 CCC [id number]) OT- Subjective Occupational Therapy Visit Type Type Treatment Note Visit Start Time 15:25 Visit Stop Time 15:53 Total Visit Minutes 28 Occupational Therapy Visit Comments Patient Comments Pt agreed to try to get up. Patient/Caregiver Goals TO get better. OT Pain Assessment Pain Present Pain Present Pain Reported Location right ribs/back Pain Behaviors Facial Grimacing,Wincing M4 OT- IP ADL's Start: 06/16/23 13:16 Freq: Status: Active Protocol: Document 06/19/23 15:59 [facility] (Rec: 06/19/23 16:09 [facility] [id number]) OT [id number] Comments OT Self-Feeding Comments Not performed OT ADL-Grooming Comments OT Grooming Comments Not performed OT ADL-Oral Care Comments Oral Care Comments Not performed OT ADL-Dressing Comments OT Dressing Comments Today pt is dependent as now decreased midline and leaning heavily to the left now. OT ADL-Toileting Comments OT Toileting Comments not performed OT ADL-Bathing Comments OT Bathing Comments not performed. Sponge bath more appropriate at this time. M5 OT- IP IADL's Start: 06/16/23 13:16 Freq: Status: Active Protocol: Document 06/16/23 13:17 CGR (Rec: 06/16/23 13:47 CGR [id number]) OT-Instrumental Activities of Daily Living Deficits IADL Deficits Identified No Deficits Home Safety Awareness Awareness of Need for Assistance at Home Good Awareness Ability to Problem Solve Emergency Able to Problem Solve Situations Medication Management Medication Management No Deficits Identified Money Management Money Management No Deficits Identified Meal Preparation Meal Preparation No Deficits Identified First Aid Instructor First Aid Instructor Caregiver Provides Assist Driving Driving Concerns Identified Regarding Safety Driving Comments 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 M6 OT- IP Functional Cognition Start: 06/16/23 13:16 Freq: Status: Active Protocol: Document 06/19/23 15:59 [facility] (Rec: 06/19/23 16:09 [facility] [id number]) Cognitive Factors Limiting Selfcare Function Cognitive Comments Cognitive Assessment Comments Pt increased time to respond to questions. Pt having difficulty to move his body and follow commands today. M7 OT- IP Mobility and Balance Start: 06/16/23 13:16 Freq: Status: Active Protocol: Document 06/19/23 15:59 [facility] (Rec: 06/19/23 16:09 [facility] [id number]) OT- Bed Mobility Assessment Supine to Sit Supine to Sit Assist Maximum Assistance Sit to Supine Sit to Supine Assist Maximum Assistance,2 Person Assistance Scooting Scooting to Edge of Bed Maximum Assistance,1 Person Assistance OT-Transfer Assessment Sit to and From Stand Sit to and from Stand Maximum Assistance,2 Person Assistance Comments Mobility Comments MAXAx1 and heavy use of green pad on the pt to assist for log rolling, and MAXA to get upright. Pt having difficulty to follow and assist with his arms to come up to sitting at the edge of the bed BP 136/78 supine , 138/82 sitting. BP standing unable to get an accurate reading and pt tensing his LUE. two person assist to get back to bed. OT- Balance Assessment Sitting Balance and Reactions Static Sitting Balance Ability Poor Dynamic Sitting Balance Ability Poor Standing Balance and Reactions Static Standing Balance Ability Poor M9 OT- IP Assessment and Plan Start: 06/16/23 13:16 Freq: Status: Active Protocol: Document 06/19/23 15:59 [facility] (Rec: 06/19/23 16:09 [facility] [id number]) OT Summary Assessment and Plan Potential Rehabilitation Potential Good Analytic Complexity at Evaluation Moderate Summary OT Impairments Pain,Strength,Balance, Functional Mobility,Grooming, Dressing,Toileting,Bathing, Toilet Transfers,Shower Transfers,Activity Tolerance Progress Towards Goals Slow Progress due to Pain,Slow Progress due to Medical Issues,Slow Progress due to Activity Tolerance,Slow Progress due to Cognition Assessment Summary Pt increased leaning to the left and now needing two person assist to stand and at this time best to use jn lift on the pt for safety. Pt needing increased time to follow commands and to be able to coordinate his hands to be able to assist for mobility needs. Pt today needing step by step concrete commands to follow. Pt will benefit from skilled rehab when medically stable. Hospitalist informed of change in mobility today. Goals Grooming Goal Independent Dressing Goal Independent Toileting Goal Independent Bathing Goal Independent Toilet Transfer Goal Independent Shower Transfer Goal Independent Days to Meet Goals 30 Frequency of Treatment Frequency Of Treatment Once a Day Treatment Plan OT Treatment Plan ADL Training,Functional Mobility,Patient/Family Education,Discharge Planning Discharge Recommendations OT Discharge Recommendations SNF Rehab Transportation Needs at Discharge Wheelchair/Cabulance
[2023-06-19] MEDS: ATORVASTATIN 20 MG TABLET 40 MG PO (20:32)
[2023-06-20] VITALS (9 sets, daily range): BP systolic 89–168; BP diastolic 53–82; PULSE 67–96; RESP 16–21; TEMP 35.9–37.4; O2SAT 96–98
[2023-06-20 06:09] LABS: Add Manual Diff / Slide Review NO; Basophils Absolute Auto 0 /uL (0-100); Basophils Percent Auto 0.8 % (0-2); Eosinophils Absolute Auto 100 /uL (0-450); Eosinophils Percent Auto 1.8 % (2-4); Hematocrit 40.6 % (41-53); Hemoglobin 14.1 g/dL (13.5-17.5); Lymphocytes Absolute Auto 500 /uL (1100-4500); Lymphocytes Percent Auto 14.6 % (25-40); Mean Corpuscular HGB Conc 34.6 % (30-36); Mean Corpuscular Volume 101.1 fL (80-100); Monocytes Absolute Auto 600 /uL (0-900); Monocytes Percent Auto 16.7 % (3-14); Neutrophils Absolute Auto 2400 /uL (1500-7000); Neutrophils Percent Auto 66.1 % (50-75); Platelet Count 98 X10^3/uL (150-400); Red Blood Cell Count 4.02 X10^6/uL (4.5-5.9); Red Cell Distribution Width 13.8 % (11.6-14.8); White Blood Cell Count 3.7 X10^3/uL (4.5-11.0)
[2023-06-20] MEDS: PANTOPRAZOLE DR 20 MG TABLET 40 MG PO (06:13)
[2023-06-20 06:14] LABS: Alanine Aminotransferase 76 IU/L (<50); Albumin 3.8 g/dL (3.5-5.0); Albumin Globulin Ratio 1.3 (1.0-2.8); Alkaline Phosphatase 39 U/L (38-126); Aspartate Aminotransferase 140 IU/L (17-59); BUN Creatinine Ratio 18.8 (6-22); Bilirubin Total 1.3 mg/dL (0.2-1.3); Blood Urea Nitrogen 19 mg/dL (9-20); Calcium 9.2 mg/dL (8.4-10.2); Carbon Dioxide 26 mmol/L (22-32); Chloride 94 mmol/L (98-107); Estimated Glomerular Filt Rate > 60 mL/min (>60); Glucose 105 mg/dL (80-110); HEMOLYSIS < 15 (0-50); Potassium 3.3 mmol/L (3.4-5.1); Sodium 131 mmol/L (137-145); Total Protein 6.8 g/dL (6.3-8.2)
[2023-06-20] MEDS: MIDODRINE HCL 5 MG TABLET 2.5 MG PO ×3 (06:14→18:37)
[2023-06-20] MEDS: GABAPENTIN 300 MG CAPSULE PO ×3 (09:00→20:50)
[2023-06-20] MEDS: LIDOCAINE PATCH 1 EACH ADH..PATCH TOP (09:00)
[2023-06-20] MEDS: levETIRAcetam 250 MG TABLET 500 MG PO ×2 (09:00→20:50)
[2023-06-20] MEDS: ASPIRIN EC 81 MG TABLET PO (09:01)
[2023-06-20] MEDS: MULTIVITAMIN 1 TABLET 1 TAB PO (09:01)
[2023-06-20] MEDS: FOLIC ACID 1 MG TABLET PO (09:01)
[2023-06-20] MEDS: MAGNESIUM SULFATE 2 GM/50 ML PIGGYBACK IV ×2 (10:16→12:27)
[2023-06-20] MEDS: POTASSIUM CHLORIDE 20 MEQ TAB 40 MEQ PO ×2 (10:16→17:32)
[2023-06-20 11:31] LABS: Clostridium Difficile Tox PCR Negative for C. diff (Negative)
--- NOTE | 2023-06-20 13:48 | CM.DPC ---
DCP Continued: PLASTICS ENGINEERING TEACHER reviewed EMR. Per provider, likely will be ready to d/c Friday or Friday to [facility]. PLASTICS ENGINEERING TEACHER spoke with Massiel at [facility]. Massiel reports they can take him whenever this weekend and auth is good through the weekend. PLASTICS ENGINEERING TEACHER entered room and introduced self and role. Patient resting in bed. Patient reports verbal understanding of plan to d/c to [facility] this weekend. RN Alma agreed to call to give her an update. Plan: d/c to [facility] when medically stable. CM team will continue to follow closely. DONTAE Rdz
[2023-06-20] MEDS: ACETAMINOPHEN 325 MG TABLET 650 MG PO (14:36)
--- NOTE | 2023-06-20 14:55 | PM.PN.1 ---
Subjective Subjective Interval history: 82 M admitted with frequent falls and syncope vs possible seizure. No etoh withdrawal this morning. He feels a bit stronger. Continues to have rib pain. He had caregiver training and was agreeable to SNF rehab given continued difficulties. Orthostatics now improved with midodrine, but developed diarrhea today. Mg level dropped to 1.0. C. diff testing was negative. Exam Vital Signs (past 8 hours): - 06/20/23 10:00 06/20/23 14:36 Temperature 98.0 F 99.3 F Pulse Rate 96 H Respiratory Rate 16 Blood Pressure 135/78 Pulse Oximetry 96 Oxygen Delivery Method Room Air Oxygen Flow Rate 0 Narrative Exam Narrative: GEN: no acute distress, right temporal scalp lac HEENT: moist mucous membranes, PERRL NECK: trachea midline, no JVD CV: regular rate and rhythm, no murmurs PULM: clear bilaterally ABD: soft, nontender, nondistended, no organomegaly EXT: warm and well perfused with no edema NEURO: awake, alert, oriented to person place and time, no focal deficits. Objective Labs 06/20/23 05:32 06/20/23 05:32 Labs: Laboratory Results - last 24 hr 06/20/23 06/20/23 05:32 10:40 WBC 3.7 L RBC 4.02 L Hgb 14.1 Hct 40.6 L MCV 101.1 H MCH 35.0 H MCHC 34.6 RDW 13.8 Plt Count 98 L Neut % (Auto) 66.1 Lymph % (Auto) 14.6 L [place] % (Auto) 16.7 H Eos % (Auto) 1.8 L Baso % (Auto) 0.8 Neut # (Auto) 2400 Lymph # (Auto) 500 L [place] # (Auto) 600 Eos # (Auto) 100 Baso # (Auto) 0 Sodium 131 L Potassium 3.3 L Chloride 94 L Carbon Dioxide 26 BUN 19 Creatinine 1.01 Estimated GFR > 60 BUN/Creatinine Ratio 18.8 Glucose 105 Calcium 9.2 Magnesium 1.0 L Total Bilirubin 1.3 AST 140 H ALT 76 H Alkaline Phosphatase 39 Total Protein 6.8 Albumin 3.8 Globulin 3.0 Albumin/Globulin Ratio 1.3 C. difficile Tox (PCR) Negative for c. diff [facility] Medical History (Updated 06/15/23 @ 18:51 by Charmaine Alegria MD) Thrombocytopenia Macrocytosis Alcoholic pancreatitis GERD (gastroesophageal reflux disease) Combined hyperlipidemia Falls frequently Intraparenchymal hemorrhage of brain Essential tremor Fatty liver Concussion Right fibular fracture Surgical History Status post radical cystoprostatectomy Status post colonoscopy S/P total hip arthroplasty Family History Father Prostate cancer Kidney problem Mother Old age Social History household members: spouse Smoking Status: Former smoker Tobacco: How many years used: 50 second hand exposure: No alcohol intake: current substance use type: does not use Assessment & Plan Assessment & Plan narrative: # syncope with possible seizure, CVA, and subdural hematoma, with orthostatic hypotension -patient had syncopal episode at home and then another in the ED, once he arrived to the floor patient had another episode of brief unresponsiveness and rigidity per nursing. Another episode on day 1. BP afterwards was low and this may be compatible with orthostatic hypotension. However cannot definitively rule out seizure given MRI findings of possible lacunar infarct and a subdural hematoma so will continue keppra. -CT head negative, MR brain with subdural hematoma, hemangioma, and possible small lacunar acute infarct. -Keppra 1 g b.i.d. ordered, transitioned to 500 mg BID orally. Recommend outpatient follow up with neurology. -likely due to poor po intake, low BP, alcohol use and malnutrition causing vasovagal syncope -TTE without obvious etiology for syncope, normal EF and no significant valvular pathology. -Q shift orthostatics, they continue to improve after fluids were given without need for midodrine. -can discontinue tele, no events -okay to continue PT/OT. -added asa 81 mg daily and statin given MRI with lacunar infarct. -SLUMS . -continues to have intermittent orthostasis, improved today with trial 2.5 mg midodrine. Will continue. # daily alcohol use with dependence -drinks 3 glasses daily of 2 fingers of whiskey, ethanol level 189 on admission. -CIWA -MV, thiamine and folate -dietary consult -recommended cessation but patient not wanting to stop drinking, but willing to got to SNF. # right-sided rib pain -likely from fall, no fractures on CXR -lidoderm patch daily, norco ongoing. # alcoholic hepatitis -AST 212 and ALT 110, likely due to alcohol use -hepatitis panel unremarkable. -abdominal ultrasound with thickening and a gallstone, however no current symptoms. Can stop trending liver enzymes given continued improvement today. # severe hypomagnesemia -Mag of 1 in ED, s/p 2 g -gave another 4 g, now improved to 2.3. Back down to 1.0 today likely with diarrhea. -monitor mg with lab testing. # chronic thrombocytopenia -platelets 109k, likely liver related -monitor with cbc, now improved up to 98K today and stable. # GERD -continue PPI #diarrhea - C. diff negative. Okay to trial immodium if symptoms continue. Code status is DNR. DVT prophylaxis will hold today as plt count fell, along with findings of subdural hematoma and lacunar infarct. Risks outweigh benefits at this time. Proxy is Dispo: SNF, pending improvement in orthostatics and diarrhea. Likely 1-2 days.
--- NOTE | 2023-06-20 16:15 | OT.IP.TRT ---
Current Diagnoses Syncope and collapse (06/15/23) Occupational Therapy Treatment Note M2 OT-IP Current Condition Start: 06/16/23 13:16 Freq: Status: Active Protocol: Document 06/16/23 13:17 CGR (Rec: 06/16/23 13:47 CGR [id number]) Occupational Therapy Current Condition Current Condition Evaluation Date 06/16/23 Treatment Diagnosis Fall, orthostatic hypotension, subacute L frontal parietal subdural hematom Diagnosis Onset Date 06/16/23 M3 OT- IP Subjective and Pain Start: 06/16/23 13:16 Freq: Status: Active Protocol: Document 06/20/23 16:17 CCC (Rec: 06/20/23 16:31 CCC [id number]) OT- Subjective Occupational Therapy Visit Type Type Treatment Note Visit Start Time 15:43 Visit Stop Time 16:15 Total Visit Minutes 32 Occupational Therapy Visit Comments Patient Comments Pt agreed to get up. Patient/Caregiver Goals To get better. M4 OT- IP ADL's Start: 06/16/23 13:16 Freq: Status: Active Protocol: Document 06/20/23 16:17 CCC (Rec: 06/20/23 16:31 [facility] [id number]) OT [id number] Comments OT Self-Feeding Comments Not performed OT ADL-Grooming Comments OT Grooming Comments Not performed OT ADL-Oral Care Comments Oral Care Comments Not performed OT ADL-Dressing General Eval Lower Body Dressing Ability Maximum Assistance Comments OT Dressing Comments Pt needing assist for all brief management needs, but able to sit to midline today. OT ADL-Toileting Comments OT Toileting Comments MAXA for brief change. OT ADL-Bathing Comments OT Bathing Comments Sponge bath more appropriate at this time. M6 OT- IP Functional Cognition Start: 06/16/23 13:16 Freq: Status: Active Protocol: Document 06/20/23 16:17 CCC (Rec: 06/20/23 16:31 [facility] [id number]) Cognitive Factors Limiting Selfcare Function Cognitive Ability Level of Alertness Alert Patient Orientation Name Attention Span Ability Capable of Focused Attention, Capable of Sustained Attention Ability to Follow Commands Able to Follow One Step Commands with Increased Time, Able to Follow One Step Commands with Repetition Cognitive Comments Cognitive Assessment Comments Yesterday pt not very talkative and having difficulty to get his thoughts out and only able to identify that 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 Today pt able to participate in conversation more but still increased time to get his thoughts out. Pt not remembering players on the [employer] team unless prompted with the first name. 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 Pt's states that his memory has progressively declined in the past months. However on 06/17/23, pt scored a 25/30 on the SLUMS. It would be good to reassess the SLUMS as pt seemingly is having more difficulties with his cognitive function especially with initiation and getting his words out now versus a few days ago. M7 OT- IP Mobility and Balance Start: 06/16/23 13:16 Freq: Status: Active Protocol: Document 06/20/23 16:17 [facility] (Rec: 06/20/23 16:31 [facility] [id number]) OT- Bed Mobility Assessment Supine to Sit Supine to Sit Assist Moderate Assistance Sit to Supine Sit to Supine Assist Maximum Assistance,2 Person Assistance Scooting Scooting to Edge of Bed Maximum Assistance,1 Person Assistance OT-Transfer Assessment Sit to and From Stand Sit to and from Stand Maximum Assistance,1 Person Assistance Comments Mobility Comments Pt needing to help sequence and guide his LUE to assist to reach the grab bar in order to roll to sidelying. MODA to assist to get upright on the second try as on the first attempt had to lie back down. MAX A1 to stand while nursing aid able to change oout his brief and do hygiene for the pt. BP supine 137/81, sitting 112/70, and standing 89/53- pt not feeling dizzy or orthrostatic but just tired. Pt hyperextending at his LLE while standing with the FWW. OT- Balance Assessment Sitting Balance and Reactions Static Sitting Balance Ability Good Dynamic Sitting Balance Ability Fair Standing Balance and Reactions Static Standing Balance Ability Poor Document 06/20/23 16:17 [facility] (Rec: 06/20/23 16:31 [facility] [id number]) OT Summary Assessment and Plan Potential Rehabilitation Potential Good Analytic Complexity at Evaluation Moderate Summary OT Impairments Pain,Strength,Balance, Functional Cognition, Functional Mobility,Grooming, Dressing,Toileting,Bathing, Toilet Transfers,Shower Transfers,Activity Tolerance Progress Towards Goals Slow Progress due to Pain,Slow Progress due to Medical Issues,Slow Progress due to Activity Tolerance,Slow Progress due to Cognition Assessment Summary Pt better doing better today and able to sit to midline after MODA to get up from the bed. Pt still having difficulty to initiate and follow commands today. Pt needing extensive assist for all needs at this time. Pt will benefit from skilled rehab. Goals Grooming Goal Independent Dressing Goal Independent Toileting Goal Independent Bathing Goal Independent Toilet Transfer Goal Independent Shower Transfer Goal Independent Days to Meet Goals 29 Frequency of Treatment Frequency Of Treatment Once a Day Treatment Plan OT Treatment Plan ADL Training,Functional Cognition Training,Functional Mobility,Patient/Family Education,Discharge Planning Discharge Recommendations OT Discharge Recommendations SNF Rehab Transportation Needs at Discharge Wheelchair/Cabulance
--- NOTE | 2023-06-20 17:12 | PT-IP ANOTE ---
checked with pt and pt just finished with OT. Per OT, pt continues to have orthostatic hypotension. pt prefers to rest at this time. will f/u tomorrow.
[2023-06-20 20:06] LABS: BUN Creatinine Ratio 21.3 (6-22); Blood Urea Nitrogen 20 mg/dL (9-20); Calcium 9.3 mg/dL (8.4-10.2); Carbon Dioxide 25 mmol/L (22-32); Chloride 98 mmol/L (98-107); Estimated Glomerular Filt Rate > 60 mL/min (>60); Glucose 115 mg/dL (80-110); HEMOLYSIS < 15 (0-50); Magnesium 2.1 mg/dL (1.6-2.3); Sodium 130 mmol/L (137-145)
[2023-06-20] MEDS: ATORVASTATIN 20 MG TABLET 40 MG PO (20:50)
[2023-06-21] VITALS: BP 140/64; BP 141/81; BP 163/88; PULSE 72; PULSE 84; PULSE 98; RESP 17; TEMP 36.2; O2SAT 95
[2023-06-21 04:00] VITALS: BP 129/68; PULSE 84; RESP 17; TEMP 36.7; O2SAT 93
[2023-06-21] MEDS: PANTOPRAZOLE DR 20 MG TABLET 40 MG PO (06:20)
[2023-06-21] MEDS: MIDODRINE HCL 5 MG TABLET 2.5 MG PO (06:20)
[2023-06-21] MEDS: LIDOCAINE PATCH 1 EACH ADH..PATCH TOP (08:43)
[2023-06-21] MEDS: MULTIVITAMIN 1 TABLET 1 TAB PO (08:44)
[2023-06-21] MEDS: GABAPENTIN 300 MG CAPSULE PO (08:44)
[2023-06-21] MEDS: levETIRAcetam 250 MG TABLET 500 MG PO (08:44)
[2023-06-21] MEDS: FOLIC ACID 1 MG TABLET PO (08:45)
[2023-06-21] MEDS: ASPIRIN EC 81 MG TABLET PO (08:45)
[2023-06-21 09:03] VITALS: BP 119/60; PULSE 80; RESP 16; TEMP 36.6; O2SAT 96
--- NOTE | 2023-06-21 10:25 | PT.IPTN ---
Current Diagnoses Syncope and collapse (06/15/23) Physical Therapy Treatment Note M2 PT-IP Current Condition Start: 06/16/23 08:06 Freq: NEEDED Status: Active Protocol: Document 06/16/23 08:37 MB (Rec: 06/16/23 11:54 MB [id number]) Physical Therapy Current Condition Current Condition Evaluation Date 06/16/23 Treatment Diagnosis Dizziness when lying on left side in the bed Onset Date One day ago M3 PT-IP Subjective Start: 06/16/23 08:06 Freq: NEEDED Status: Active Protocol: Document 06/21/23 10:25 AB (Rec: 06/21/23 12:34 AB [id number]) Subjective Physical Therapy Visit Type Type Treatment Note Visit Start Time 10:25 Visit Stop Time 11:00 Total Visit Minutes 35 Number of RETURNED CASE INSPECTOR Visits 0 Physical Therapy Visit Comments Patient Comments agreeable to do PT M4 PT-IP Mobility and Gait Start: 06/16/23 08:06 Freq: NEEDED Status: Active Protocol: Document 06/21/23 10:25 AB (Rec: 06/21/23 12:34 AB [id number]) PT-Bed Mobility Assessment Supine to Sit Supine to Sit Maximum Assistance,Head of Bed Elevated,Bedrails PT-Transfer Assessment Sit to and From Stand Sit to and from Stand Moderate Assistance,Maximum Assistance,1 Person Assistance ,Use of Upper Extremities Transfers Transfer Destination Chair Transfer Technique Stand Step Pivot Transfer Ability Level of Assist Moderate Assistance,Maximum Assistance,1 Person Assistance ,Use of Upper Extremities Comments Mobility Comments pt in bed and agreed to do PT. BP in supine: 123/75 . completed supine to sit max A and max cues with HOB elevated and pt used bed rail. able to sit on EOB CGA. pt needs increase time to process instructions and complete tasks. BP in sittin/71. no c/o dizziness. completed sit to stand mod to max A and max cues. able to stand using FWW CGA to min A. BP in standin/48. no c/o dizziness. completed step transfer to chair using FWW mod to max A and max cues. BP in sitting after transfer: 101/65. positioned pt on the chair. call light and table placed within reach. BP checked again: 120/69. Nurse aware of BP M5 PT-IP Objective Assessments Start: 06/16/23 08:06 Freq: NEEDED Status: Active Protocol: Document 06/17/23 10:20 SAK (Rec: 06/17/23 10:27 SAK [id number]) Orientation Orientation/Cognition Level of Alertness Alert Orientation Name,Age,Birthday,Month,Date, Year,Day of Week,Place, Situation Language Function Ability Hard of Hearing Safety Awareness Decreased Safety Awareness Memory Description No Deficits Noted M6 PT-IP Treatment Start: 06/16/23 08:06 Freq: NEEDED Status: Active Protocol: Document 06/21/23 10:25 AB (Rec: 06/21/23 12:34 AB [id number]) Physical Therapy Treatment Education Education Provided Safety M7 PT-IP Assessment and Plan Start: 06/16/23 08:06 Freq: NEEDED Status: Active Protocol: Document 06/21/23 10:25 AB (Rec: 06/21/23 12:34 AB [id number]) PT Summary Assessment and Plan Potential Rehabilitation Potential Fair Summary Impairments Pain,ROM,Strength,Balance, Coordination,Sensation,Tone, Cognition,Bed Mobility, Transfers,Gait,Activity Tolerance Progress Towards Goals Slow Progress due to Medical Issues,Slow Progress due to Activity Tolerance Assessment Summary pt continues to require mod to max A with mobility using FWW for transfers. Pt continues to have orthostatic hypotension affecting activity tolerance and mobility. ambulation hold off due to decrease in BP to 77/48 in standing but able to complete transfer to chair using FWW mod to max A and max cues. pt will benefit from SNF rehab to improve overall strength, activity tolerance and mobility independence. Goals Bed Mobility Goal Independent Transfer Goal Standby Assistance,Front Wheeled Walker Gait Goal Standby Assistance,Front Wheel Walker Gait Distance 100 Other Goals improve transfers and ambulation using FWW 250 ft mod I uup/down 2 steps using SPC/FLOOR SERVICE WORKER [employer] CGA Days to Meet Goals 10 Frequency of Treatment Frequency Of Treatment Once a Day Treatment Plan Physical Therapy Treatment Plan Bed Mobility Training,Transfer Training,Gait Training, Therapeutic Exercise,Balance Retraining Precautions Other Precautions orthostatic hypotension Recommendations To Nursing Amount of Assist Needed 2 Person Assist Discharge Recommendations PT Discharge Recommendations SNF Rehab Transportation Needs at Discharge Wheelchair/Cabulance
[2023-06-21 10:39] VITALS: BP 122/71; BP 123/75; BP 77/48; PULSE 76; PULSE 86; PULSE 94
[2023-06-21 10:40] VITALS: BP 101/65; PULSE 98; RESP 16; O2SAT 98
--- NOTE | 2023-06-21 10:47 | P.DS_ITS ---
History of Present Illness History of Present Illness Chief complaint: fall, head/hip injury, laceration on rt eyebrow Narrative: Carlos Jansen is an 82yo M with PMH of remote ICH, daily alcohol use, alcoholic pancreatitis, HLD, fatty liver, GERD, and chronic thrombocytopenia who presents with syncope. Patient's recounting the events as patient does not remember them. She states they were leaving the house to go to a play and on the way out of the door he was walking with his cane and he became wobbly and suddenly fell flat on his face hitting his right side. He did not fully lose consciousness and came back to his normal self after a couple minutes. He came to the ED and was going to be sent home, then had a similar episode where he went unresponsive and turned blue which then stopped. He states he doesn't remember both of these episodes happening. He drinks 3 glasses of 2 finger widths of whiskey daily. He has never had withdrawal seizures. Ethanol 189 in ED. He is only complaining of R-sided rib pain where he fell. He denies headache, dizziness, NV, CP, SOB, abd pain or diarrhea. Discharge Providers Provider Date of admission: 06/15/23 16:47 Discharge Date: 06/21/23 Primary care physician: MELVINA Salguero Consults: 06/15/23 17:38 Consult to Occupational Therapy Evaluate & Treat Comment: Physician Instructions: Evaluate and treat Consult to Physical Therapy Evaluate & Treat Comment: Physician Instructions: Evaluate and Treat 06/15/23 18:32 Consult to Dietitian, Adult Routine Comment: Reason For Exam: mag 1, alcohol use, poor nutrition Discharge provider: Jono Newsome DO Summary Hospital Course Discharge Diagnosis: # syncope with possible seizure, CVA, and subdural hematoma, with orthostatic hypotension -patient had syncopal episode at home and then another in the ED, once he arrived to the floor patient had another episode of brief unresponsiveness and rigidity per nursing. Another episode on day 1. BP afterwards was low and this may be compatible with orthostatic hypotension. However cannot definitively rule out seizure given MRI findings of possible lacunar infarct and a subdural hematoma so will continue keppra. -CT head negative, MR brain with subdural hematoma, hemangioma, and possible small lacunar acute infarct. -Keppra 1 g b.i.d. ordered, transitioned to 500 mg BID orally. Recommend outpatient follow up with neurology as cannot prove he didn't have a seizure. -likely due to poor po intake, low BP, alcohol use and malnutrition causing vasovagal syncope -TTE without obvious etiology for syncope, normal EF and no significant valvular pathology. -can discontinue tele, no events -okay to continue PT/OT. -added asa 81 mg daily given MRI with lacunar infarct. Statin withheld due to elevated LFT's from alcohol. Can start at later date if LFT's improve. -SLUMS . -continues to have intermittent orthostasis, improved today with trial 2.5 mg midodrine resolving orthostasis. Will continue and f/up with PCP to d/c at later date. # daily alcohol use with dependence -drinks 3 glasses daily of 2 fingers of whiskey, ethanol level 189 on admission. -CIWA -MV, thiamine and folate -dietary consult -recommended cessation but patient not wanting to stop drinking, but willing to got to SNF. # right-sided rib pain -likely from fall, no fractures on CXR -lidoderm patch daily, norco ongoing. # alcoholic hepatitis -AST 212 and ALT 110, likely due to alcohol use -hepatitis panel unremarkable. -abdominal ultrasound with thickening and a gallstone, however no current symptoms. Can stop trending liver enzymes given continued improvement today. -holding statin due to elevated LFT's # severe hypomagnesemia -Mag of 1 in ED, s/p 2 g -gave another 4 g, now improved to 2.3. Back down to 1.0 today likely with diarrhea. -monitor mg with lab testing. # chronic thrombocytopenia -platelets 109k, likely liver related -monitor with cbc, now improved up to 98K today and stable. # GERD -continue PPI #diarrhea, now resolved - C. diff negative. Okay to trial immodium if symptoms continue. Hospital Course: Admitted for fall at home and possible seizure. MRI brain showed acute CVA and subdural hematoma. Started on aspirin only and Plavix withheld due to hematoma. Could not start statin due to elevated LFTs. Placed on Keppra and will need follow-up with Neurology. Had orthostatic hypotension not responsive to IV fluids so started on midodrine which improved this. PT recommended SNF inpatient discharged there. Exam Vital Signs (past 8 hours): - 06/21/23 04:00 06/21/23 09:03 Temperature 98.0 F 97.8 F Pulse Rate 84 80 Respiratory Rate 17 16 Blood Pressure 129/68 119/60 Pulse Oximetry 93 96 Oxygen Flow Rate 0 Oxygen Delivery Method Room Air Oxygen Flow Rate 0 Narrative Exam Narrative: GEN: no acute distress, right temporal scalp lac HEENT: moist mucous membranes, PERRL NECK: trachea midline, no JVD CV: regular rate and rhythm, no murmurs PULM: clear bilaterally ABD: soft, nontender, nondistended, no organomegaly EXT: warm and well perfused with no edema NEURO: awake, alert, oriented to person place and time, no focal deficits. Objective Labs 06/20/23 05:32 06/20/23 19:50 Labs: Laboratory Results - last 24 hr 06/20/23 06/20/23 10:40 19:50 Sodium 130 L Potassium 4.0 Chloride 98 Carbon Dioxide 25 BUN 20 Creatinine 0.94 Estimated GFR > 60 BUN/Creatinine Ratio 21.3 Glucose 115 H Calcium 9.3 Magnesium 2.1 C. difficile Tox (PCR) Negative for c. diff COUNT INCLUDES THE [facility] Medical History (Updated 06/20/23 @ 15:03 by Charmaine Alegria MD) Thrombocytopenia Macrocytosis Alcoholic pancreatitis GERD (gastroesophageal reflux disease) Combined hyperlipidemia Falls frequently Intraparenchymal hemorrhage of brain Essential tremor Fatty liver Concussion Right fibular fracture Surgical History Status post radical cystoprostatectomy Status post colonoscopy S/P total hip arthroplasty Family History Father Prostate cancer Kidney problem Mother Old age Social History household members: spouse Smoking Status: Former smoker Tobacco: How many years used: 50 second hand exposure: No alcohol intake: current substance use type: does not use Discharge Plan Discharge Plan Patient Disposition: SNF Discharge orders & Medications Prescriptions: New aspirin 81 mg Tablet,Delayed Release (Dr/Ec) 81 mg PO DAILY Qty: 30 0RF levetiracetam 500 mg tablet 500 mg PO BID Qty: 60 0RF lidocaine 5 % Adhesive Patch,Medicated 1 patch topical BEDTIME Qty: 30 0RF Rx Instructions: for right rib pain midodrine 2.5 mg tablet 2.5 mg PO 0600,1200,1800 Qty: 90 0RF hydrocodone-acetaminophen 5-325 mg Tablet 1 tab PO Q4HR PRN (Reason: Pain, Moderate (4-6)) Qty: 30 0RF Continued omeprazole 20 mg capsule,delayed release(DR/EC) 20 mg PO DAILY Qty: 90 3RF Follow up/Referrals: Margarita Stoll ARNP [Primary Care Provider] - 2 Weeks Visit Report/Discharge Packet Instructions: DI for Laceration Repair-Skin Glue, How to Prevent Falls Stand Alone Forms: Patient Portal/API Discharge Data Primary Care Provider: Margarita Stoll
--- NOTE | 2023-06-21 11:52 | CM.DPC ---
DCP Continued SENIOR TRAINING AND DEVELOPMENT REP reviewed EMR. Per provider in rounds, patient able to d/c to [facility] today. SENIOR TRAINING AND DEVELOPMENT REP spoke with Hayden at [facility]. confirms able to accept patient. 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 SENIOR TRAINING AND DEVELOPMENT REP updated provider and nursing staff. SENIOR TRAINING AND DEVELOPMENT REP gave nursing staff report number. SENIOR TRAINING AND DEVELOPMENT REP faxed copy of PASRR, signed med list, and dc summary to [facility]. SENIOR TRAINING AND DEVELOPMENT REP placed original PASRR and signed med list in d/c paperwork with [facility]. SENIOR TRAINING AND DEVELOPMENT REP entered room and reintroduced self and role. Patient accompanied by friend at bedside. Patient confirms on board to d/c to [facility] today. No questions at this time. SENIOR TRAINING AND DEVELOPMENT REP provided copy of IMM paperwork. Plan: Patient to d/c to [facility] today at 1230. CM team will continue to follow as needed. DONTAE Rdz
== END 2023-06-21 12:40 | DRG 84 ==
LOC: ED 16:02 → AC 18:51
PROVIDERS: Internal Medicine; Admitting Provider Student in an Organized Health Care Education/Training Program; Emergency Provider Emergency Medicine; PCP Nurse Practitioner; Visit Provider Student in an Organized Health Care Education/Training Program
DX: S06.5XAA Traumatic subdural hemorrhage with loss of consciousness status unknown, initial encounter (principal); F10.20 Alcohol dependence, uncomplicated; Y90.6 Blood alcohol level of 120-199 mg/100 ml; R07.81 Pleurodynia; E83.42 Hypomagnesemia; D69.59 Other secondary thrombocytopenia; K21.9 Gastro-esophageal reflux disease without esophagitis; Z66 Do not resuscitate; I95.1 Orthostatic hypotension; K70.10 Alcoholic hepatitis without ascites; R19.7 Diarrhea, unspecified; R56.9 Unspecified convulsions; Z87.891 Personal history of nicotine dependence
CPT/HCPCS: 36415; 70450; 70551; 71045; 72125; 73502; 76705; 80048; 80053; 80074; 80076; 80305; 80320; 81001; 82550; 82607; 82746; 82962; 83036; 83690; 83735; 83921; 84443; 84484; 85025; 85610; 85730; 87045; 87493; 87899; 93005; 93306; 96365; 97116; 97129; 97161; 97166; 97530; 97535; 99284; J1650; J1953; J3475

== ENCOUNTER → 2023-07-16 15:58 | Outpatient (CLI) | payer MEDICARE, SELFPAY ==
[2023-06-15 20:23] VITALS: BMI 28.5
[2023-07-16 17:53] LABS: INR 1.3 (0.9-1.3); Prothrombin Time 14.8 SECONDS (10.1-12.7)
[2023-07-16 17:58] LABS: Add Manual Diff / Slide Review NO; Basophils Absolute Auto 0 /uL (0-100); Basophils Percent Auto 0.6 % (0-2); Eosinophils Absolute Auto 400 /uL (0-450); Eosinophils Percent Auto 7.9 % (2-4); Hematocrit 43.7 % (41-53); Hemoglobin 14.9 g/dL (13.5-17.5); Lymphocytes Absolute Auto 1600 /uL (1100-4500); Lymphocytes Percent Auto 29.9 % (25-40); Mean Corpuscular Hemoglobin 33.6 PG (26-34); Mean Corpuscular Volume 98.7 fL (80-100); Monocytes Absolute Auto 600 /uL (0-900); Monocytes Percent Auto 12.2 % (3-14); Neutrophils Absolute Auto 2600 /uL (1500-7000); Neutrophils Percent Auto 49.4 % (50-75); Platelet Count 170 X10^3/uL (150-400); Red Blood Cell Count 4.43 X10^6/uL (4.5-5.9); Red Cell Distribution Width 13.5 % (11.6-14.8); White Blood Cell Count 5.2 X10^3/uL (4.5-11.0)
[2023-07-16 18:16] LABS: Alanine Aminotransferase 54 IU/L (<50); Albumin 4.3 g/dL (3.5-5.0); Albumin Globulin Ratio 1.3 (1.0-2.8); Alkaline Phosphatase 57 U/L (38-126); Aspartate Aminotransferase 65 IU/L (17-59); BUN Creatinine Ratio 17.9 (6-22); Bilirubin Total 0.6 mg/dL (0.2-1.3); Blood Urea Nitrogen 19 mg/dL (9-20); Carbon Dioxide 28 mmol/L (22-32); Chloride 102 mmol/L (98-107); Estimated Glomerular Filt Rate > 60 mL/min (>60); Globulin 3.4 g/dL (1.7-4.1); Glucose 100 mg/dL (80-110); HEMOLYSIS < 15 (0-50); Potassium 3.7 mmol/L (3.4-5.1); Sodium 142 mmol/L (137-145); Total Protein 7.7 g/dL (6.3-8.2)
[2023-07-16 19:03] LABS: Vitamin B12 Reflex MMA if <400 500 pg/mL (239-931)
[2023-07-17 16:48] LABS: Hep C Virus Ab w/Reflex Quant NEGATIVE s/c (NEGATIVE)
[2023-07-18 06:10] LABS: Hepatitis A Ab IgM Negative (Negative); Hepatitis A Ab Total Positive (Negative); Hepatitis B Core AB w/Reflex Negative (Negative)
[2023-07-19 15:10] LABS: Hepatitis B Core IgM Negative (Negative)
== END ==
PROVIDERS: Family Medicine; PCP Nurse Practitioner; Referring Provider Physician Assistant; Visit Provider Physician Assistant
DX: F10.20 Alcohol dependence, uncomplicated (principal); D69.6 Thrombocytopenia, unspecified; D75.89 Other specified diseases of blood and blood-forming organs; I10 Essential (primary) hypertension
CPT/HCPCS: 36415; 80053; 82607; 85025; 85610; 86704; 86705; 86708; 86803

== ENCOUNTER → 2023-07-28 15:25 | Outpatient (CLI) | payer MEDICARE, SELFPAY ==
[2023-06-15 20:23] VITALS: BMI 28.5
--- NOTE | 2023-07-28 15:28 | DI.RAD.S_ITS ---
PROCEDURE: XR CHEST 2V INDICATIONS: rhonchi throughout left lung TECHNIQUE: 2 views of the chest were acquired. COMPARISON: [facility], , XR CHEST 1V, 06/15/2023, 14:40. FINDINGS: Surgical changes and devices: None. Lungs and pleura: Right diaphragmatic eventration. Hyperinflation suggesting COPD. No focal infiltrate. No pleural effusions or pneumothorax. Mediastinum: Mediastinal contours are normal. Heart size is normal. Bones and chest wall: No suspicious bony abnormalities. Soft tissues appear unremarkable. IMPRESSION: 1. No acute cardiopulmonary abnormality is seen. 2. COPD. Dictated by: Mihir William M.D. on 07/28/2023 at 16:31 Approved by: Mihir William M.D. on 07/28/2023 at 16:32
== END ==
PROVIDERS: PCP Nurse Practitioner; Referring Provider Nurse Practitioner; Visit Provider Nurse Practitioner
DX: J44.9 Chronic obstructive pulmonary disease, unspecified (principal); R09.89 Other specified symptoms and signs involving the circulatory and respiratory systems
CPT/HCPCS: 71046

== ENCOUNTER 2023-08-07 22:41 | Emergency (ER) | payer MEDICARE, SELFPAY ==
[2023-06-15 20:23] VITALS: BMI 28.5
[2023-08-07 22:44] VITALS: BP 96/65; PULSE 99; O2SAT 95
[2023-08-07 22:49] VITALS: BP 96/65; PULSE 97; RESP 18; O2SAT 95; BMI 27.2
--- NOTE | 2023-08-07 22:52 | ED.GENADULT ---
HPI - General Adult General Chief complaint: Seizure Stated complaint: syncope Time Seen by Provider: 08/07/23 22:41 Source: patient and EMS Mode of arrival: EMS Limitations: no limitations History of Present Illness HPI narrative: Patient is an 83-year-old male. Approximately 2 months ago was admitted to the hospital after having episodes of syncope and hypotension. He had an MRI which did show lacunar infarct in his subdural. He was also found to be hypotensive and started on midodrine. He was also started on Keppra. He would a follow-up earlier this month with his primary doctor. According to that note had stated that he had not been taking his midodrine nor his Keppra. He is here in the emergency department today for what appears to be another syncopal episode. Patient states he was standing urinating when he thought that he got dizzy and fell. He does not quite remember the event. Unsure whether or not there was a postictal state although paramedics state upon their arrival he did seem somewhat confused. Currently he has no complaints. He states he is taking his Keppra and midodrine. Has no neck pain, no headache, no extremity pain. Related Data Previous Rx's Medication Instructions Recorded omeprazole 20 mg capsule,delayed 20 mg PO DAILY #90 caps 06/09/23 release levetiracetam 500 mg tablet 500 mg PO BID #180 tabs 07/28/23 midodrine 2.5 mg tablet 2.5 mg PO 0600,1200,1800 #270 tabs 07/28/23 Allergies Allergy/AdvReac Type Severity Reaction Status Date / Time No Known Allergies Allergy Verified 07/28/23 14:09 Review of Systems Constitutional Constitutional: Reports system reviewed and no additional complaints, except as documented Cardiovascular Cardiovascular: Reports system reviewed and no additional complaints, except as documented Respiratory Respiratory: Reports system reviewed and no additional complaints, except as documented Gastrointestinal Gastrointestinal: Reports system reviewed and no additional complaints, except as documented Musculoskeletal Musculoskeletal: Reports system reviewed and no additional complaints, except as documented Integumentary/Breasts Skin/Breast: Reports system reviewed and no additional complaints, except as documented Neurologic Neurologic: Reports system reviewed and no additional complaints, except as documented Hematologic/Lymphatic On Anticoagulants: No Patient History Medical History Seizure Thrombocytopenia Macrocytosis Alcoholic pancreatitis GERD (gastroesophageal reflux disease) Combined hyperlipidemia Falls frequently Intraparenchymal hemorrhage of brain Essential tremor Fatty liver Concussion Right fibular fracture Surgical History Status post radical cystoprostatectomy Status post colonoscopy S/P total hip arthroplasty Family History Father Prostate cancer Kidney problem Mother Old age Social History household members: spouse Smoking Status: Former smoker Tobacco: How many years used: 50 second hand exposure: No alcohol intake: current substance use type: does not use Smoking Status: Former smoker alcohol intake frequency: a few times a week Substance Use Type: does not use Exam Initial Vital Signs Initial Vital Signs: Vital Signs Pulse Rate 99 H 08/07/23 22:44 Blood Pressure 96/65 08/07/23 22:44 Pulse Oximetry 95 08/07/23 22:44 Const General: cooperative, comfortable and No ill appearing HENMT Head: normal to inspection and atraumatic Resp Effort & Inspection: normal respiratory effort Auscultation: clear to auscultation bilaterally Cardio Rate: regular rate Rhythm: regular rhythm GI Inspection: normal to inspection and non-distended Palpation: soft and No tender Neuro General: patient alert, patient awake, patient oriented x3 and moves all extremities Speech: speech normal Extrem General: capillary refill normal Scores GCS [place] coma scale eye opening: Spontaneous Alicia coma scale verbal response: Orientated Alicia coma scale motor response: Obey commands Alicia coma scale total score: 15 Course Orders Ordered: ED Orders 08/07/23 22:42 EKG-12 Lead Stat 08/07/23 22:48 Complete Blood Count AUTO DIFF Stat Comprehensive Metabolic Panel Stat Ethanol (ETOH) Stat Lipase Stat 08/08/23 00:46 Consult to [employer] - Merchandising Stock Associate Stat Discontinued Medications Ondansetron HCl (Ondansetron 4 Mg/2 Ml Inj) 4 mg IV NOW ONE Stop: 08/08/23 00:04 Last Admin: 08/08/23 00:11 Dose: 4 mg Documented By: TRAY Ondansetron HCl (Ondansetron 4 Mg Odt Prepack) 1 bottle MISC DIRECTED ONE Stop: 08/08/23 00:38 Last Admin: 08/08/23 00:50 Dose: 1 bottle Documented By: TRAY Vital Signs Vital signs: Vital Signs - 8 hr 08/07/23 22:44 08/07/23 22:44 08/07/23 22:49 Pulse Rate 99 H 97 H Respiratory Rate 18 Blood Pressure 96/65 96/65 Pulse Oximetry 95 95 Oxygen Delivery Method Room Air 08/07/23 23:00 08/07/23 23:00 08/07/23 23:30 Pulse Rate 92 H 82 Respiratory Rate 23 18 Blood Pressure 95/55 L Pulse Oximetry 93 95 Oxygen Delivery Method 08/07/23 23:30 08/07/23 23:55 08/07/23 23:55 Pulse Rate 92 H Respiratory Rate 16 Blood Pressure 98/54 L 117/61 Pulse Oximetry 99 Oxygen Delivery Method 08/08/23 00:00 08/08/23 00:00 08/08/23 00:30 Pulse Rate 92 H 89 Respiratory Rate 24 21 Blood Pressure 117/60 Pulse Oximetry 98 96 Oxygen Delivery Method 08/08/23 00:58 08/08/23 00:58 08/08/23 01:00 Pulse Rate 92 H 90 Respiratory Rate 21 18 Blood Pressure 125/68 Pulse Oximetry 98 97 Oxygen Delivery Method Medical Decision Making Medical Records Medical records reviewed: Yes I reviewed the patient's medical records. Lab Data Lab results reviewed: Yes I reviewed the patient's lab results. 08/07/23 22:48 08/07/23 22:48 Labs: Lab Results 08/07/23 Range/Units 22:48 WBC 7.6 (4.5-11.0) X10^3/uL RBC 4.65 (4.5-5.9) X10^6/uL Hgb 15.9 (13.5-17.5) g/dL Hct 46.8 (41-53) % MCV 100.6 H (80-100) fL MCH 34.3 H (26-34) PG MCHC 34.1 (30-36) % RDW 14.7 (11.6-14.8) % Plt Count 160 (150-400) X10^3/uL Neut % (Auto) 65.7 (50-75) % Lymph % (Auto) 24.4 L (25-40) % [place] % (Auto) 8.6 (3-14) % Eos % (Auto) 1.0 L (2-4) % Baso % (Auto) 0.3 (0-2) % Neut # (Auto) 5000 (9518-3891) /uL Lymph # (Auto) 1800 (3458-8799) /uL [place] # (Auto) 700 (0-900) /uL Eos # (Auto) 100 (0-450) /uL Baso # (Auto) 0 (0-100) /uL Sodium 138 (137-145) mmol/L Potassium 3.4 (3.4-5.1) mmol/L Chloride 92 L (98-107) mmol/L Carbon Dioxide 20 L (22-32) mmol/L BUN 15 (9-20) mg/dL Creatinine 0.99 (0.66-1.25) mg/dL Estimated GFR > 60 (>60) mL/min BUN/Creatinine Ratio 15.2 (6-22) Glucose 103 (80-110) mg/dL Calcium 9.6 (8.4-10.2) mg/dL Total Bilirubin 1.4 H (0.2-1.3) mg/dL AST 50 (17-59) IU/L ALT 32 (<50) IU/L Alkaline Phosphatase 54 (38-126) U/L Total Protein 8.0 (6.3-8.2) g/dL Albumin 4.7 (3.5-5.0) g/dL Globulin 3.3 (1.7-4.1) g/dL Albumin/Globulin Ratio 1.4 (1.0-2.8) Lipase 101 (23-300) U/L Ethyl Alcohol < 10 ( - 10) mg/dL ECG Data Attestation: I personally reviewed and interpreted this ECG as follows: Interpretation: Sinus rhythm Ventricular rate 96 Normal axis Normal QRS QTC 490 ST T wave changes MDM Narrative Medical decision making narrative: Patient was alert and oriented to person and place upon arrival but did not specifically remember the event. He states he is taking his Keppra and also his midodrine although the note from his primary doctor approximately 1 week ago states he was not taking these medicines. Unsure whether or not he had another seizure has EMS states that he did seem ?unresponsive? or confused upon their arrival. This very well could be a postictal state. Here in the emergency department he was able to stand and take a couple steps with a walker which he uses at baseline. He did have some nausea and did throw up several times today. He we received nausea medication here in the ER that seemed to help his symptoms. No fevers. No indication for admission to the hospital. According to his primary doctor's note he refused a referral to see Neurology. He was given return precautions. Discharge Plan Departure Patient Disposition: Home Clinical Impression: Syncope Instructions: DI for Syncope in Adults (Fainting) Activity Restrictions/Additional Instructions: I do recommend that you continue to take your Keppra/levetiracetam and also the midodrine as directed. These medications will be helpful in potentially keeping your fainting episodes from happening again. Recommend that you contact your primary doctor for a follow-up. Return to the emergency department for new symptoms. Prescriptions: No Action omeprazole 20 mg capsule,delayed release(DR/EC) 20 mg PO DAILY Qty: 90 3RF levetiracetam 500 mg tablet 500 mg PO BID Qty: 180 3RF midodrine 2.5 mg tablet 2.5 mg PO 0600,1200,1800 Qty: 270 3RF Rx Instructions: Take 1 tab 3x/day unless BP >120/80. Referrals: Margarita Stoll ARNP [Primary Care Provider] - Stand Alone Forms: Patient Portal/API
[2023-08-07 22:57] LABS: Add Manual Diff / Slide Review NO; Basophils Absolute Auto 0 /uL (0-100); Basophils Percent Auto 0.3 % (0-2); Eosinophils Absolute Auto 100 /uL (0-450); Hematocrit 46.8 % (41-53); Hemoglobin 15.9 g/dL (13.5-17.5); Lymphocytes Absolute Auto 1800 /uL (1100-4500); Lymphocytes Percent Auto 24.4 % (25-40); Mean Corpuscular HGB Conc 34.1 % (30-36); Mean Corpuscular Hemoglobin 34.3 PG (26-34); Mean Corpuscular Volume 100.6 fL (80-100); Monocytes Absolute Auto 700 /uL (0-900); Monocytes Percent Auto 8.6 % (3-14); Neutrophils Absolute Auto 5000 /uL (1500-7000); Neutrophils Percent Auto 65.7 % (50-75); Platelet Count 160 X10^3/uL (150-400); Red Blood Cell Count 4.65 X10^6/uL (4.5-5.9); Red Cell Distribution Width 14.7 % (11.6-14.8); White Blood Cell Count 7.6 X10^3/uL (4.5-11.0)
[2023-08-07 23:00] VITALS: BP 95/55; PULSE 92; RESP 23; O2SAT 93
[2023-08-07 23:06] LABS: Albumin 4.7 g/dL (3.5-5.0); Albumin Globulin Ratio 1.4 (1.0-2.8); Alkaline Phosphatase 54 U/L (38-126); Aspartate Aminotransferase 50 IU/L (17-59); BUN Creatinine Ratio 15.2 (6-22); Bilirubin Total 1.4 mg/dL (0.2-1.3); Blood Urea Nitrogen 15 mg/dL (9-20); Calcium 9.6 mg/dL (8.4-10.2); Carbon Dioxide 20 mmol/L (22-32); Chloride 92 mmol/L (98-107); Estimated Glomerular Filt Rate > 60 mL/min (>60); Globulin 3.3 g/dL (1.7-4.1); Glucose 103 mg/dL (80-110); Lipase 101 U/L (23-300); Potassium 3.4 mmol/L (3.4-5.1); Sodium 138 mmol/L (137-145)
[2023-08-07 23:13] LABS: Alanine Aminotransferase 32 IU/L (<50)
[2023-08-07 23:22] LABS: Ethanol (ETOH) < 10 mg/dL; HEMOLYSIS 18 (0-50)
[2023-08-07 23:30] VITALS: BP 98/54; PULSE 82; RESP 18; O2SAT 95
[2023-08-07 23:55] VITALS: BP 117/61; PULSE 92; RESP 16; O2SAT 99
[2023-08-08] VITALS: BP 117/60; PULSE 92; RESP 24; O2SAT 98
[2023-08-08] MEDS: ONDANSETRON 4 MG/2 ML INJ IV (00:11)
--- NOTE | 2023-08-08 00:29 | PC.NURSE ---
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 Patient could not complete ambulation trial. Patient states he was feeling weak and dizzy. Patient was able to stand up but was not able to walk a few steps.
[2023-08-08 00:30] VITALS: PULSE 89; RESP 21; O2SAT 96
[2023-08-08] MEDS: ONDANSETRON 4 MG ODT PREPACK 1 BOTTLE MISC (00:50)
[2023-08-08 00:58] VITALS: BP 125/68; PULSE 92; RESP 21; O2SAT 98
[2023-08-08 01:00] VITALS: PULSE 90; RESP 18; O2SAT 97
== END 2023-08-08 01:14 | disposition home or self-care (01) ==
PROVIDERS: Emergency Provider Emergency Medicine; PCP Nurse Practitioner
DX: R55 Syncope and collapse (principal); R03.1 Nonspecific low blood-pressure reading
CPT/HCPCS: 36415; 80053; 80320; 83690; 85025; 93005; 93010; 96374; 99284; J2405

== ENCOUNTER 2023-08-20 10:14 | Emergency (ER) | payer MEDICARE, SELFPAY ==
[2023-06-15 20:23] VITALS: BMI 28.5
[2023-08-20] VITALS (26 sets, daily range): BP systolic 94–153; BP diastolic 50–99; PULSE 64–98; RESP 16–24; TEMP 37; O2SAT 94–98; BMI 27.2
--- NOTE | 2023-08-20 10:20 | ED_ITS ---
HPI - General Adult General Chief complaint: Weakness Stated complaint: Weakness, Dizziness, GLF Time Seen by Provider: 08/20/23 10:20 History of Present Illness HPI narrative: 83-year-old male former smoker with history of GERD, hypertension, hyperlipidemia, prior intracranial hemorrhage presents by EMS for evaluation of increasing generalized weakness with increasing falls over the past few weeks. This morning the caregiver found patient slouched over the side of the toilet and sufficiently weak to be unable to stand. He normally is able to ambulate with the use of a walker. He denies any injuries as a consequence of the fall. He does not take blood thinners. He denies any chest pain or shortness of breath. He denies nausea, vomiting or diarrhea but does state there has been decreased appetite lately. He denies any new medications. He states he gets dizzy when he sits up or stands up. Related Data Previous Rx's Medication Instructions Recorded omeprazole 20 mg capsule,delayed 20 mg PO DAILY #90 caps 06/09/23 release levetiracetam 500 mg tablet 500 mg PO BID #180 tabs 07/28/23 midodrine 2.5 mg tablet 2.5 mg PO 0600,1200,1800 #270 tabs 07/28/23 fludrocortisone 0.1 mg tablet 0.2 mg (2 x 0.1 mg) PO DAILY #180 08/18/23 tabs food supplemt, lactose-reduced 1 ea PO DAILY #5,688 mL 08/18/23 (Ensure oral liquid) Transport Chair #1 ea 08/20/23 Allergies Allergy/AdvReac Type Severity Reaction Status Date / Time No Known Allergies Allergy Verified 08/18/23 11:19 Review of Systems Review of Systems Narrative: GENERAL: See HPI HEENT: Denies sinus pain, ear pain, sore throat, difficulty swallowing, dizziness. RESPIRATORY: Denies dyspnea, cough, wheezing, hemoptysis, sputum. CARDIOVASCULAR: Denies chest pain, palpitations, orthopnea, edema, GASTROINTESTINAL: Denies nausea, vomiting, abdominal pain, diarrhea, constipation, melena. : Denies dysuria, frequency, incontinence, hematuria, urinary retention. MUSCULOSKELETAL: See HPI SKIN: Denies rash, skin lesions, or other NEUROLOGIC: Denies weakness, headache, numbness, change in speech, confusion, seizures, incoordination. PSYCHIATRIC: No concerning psychosocial issues. 12 point review of systems is negative except for those stated above Patient History Medical History Hypotension Protein calorie malnutrition History of prostate cancer Seizure Thrombocytopenia Macrocytosis Alcoholic pancreatitis GERD (gastroesophageal reflux disease) Combined hyperlipidemia Falls frequently Intraparenchymal hemorrhage of brain Essential tremor Fatty liver Concussion Right fibular fracture Surgical History Status post radical cystoprostatectomy Status post colonoscopy S/P total hip arthroplasty Family History Father Prostate cancer Kidney problem Mother Old age Social History household members: spouse Smoking Status: Former smoker Tobacco: How many years used: 50 second hand exposure: No alcohol intake: current substance use type: does not use Smoking Status: Former smoker alcohol intake frequency: a few times a week Substance Use Type: does not use Exam Narrative Exam Narrative: GENERAL: [83] year old patient appears stated age. Mild temporal wasting, in mild distress. HEAD: Atraumatic. Normocephalic. EYES: Pupils equal round and reactive. Extraocular motions intact. No scleral icterus. No injection or drainage. ENT: Dry mucous membranes Nose without bleeding, purulent drainage. Throat without erythema, tonsillar hypertrophy or exudate. Airway patent. NECK: Trachea midline. Non tender CARDIOVASCULAR: Regular rate and rhythm without murmurs, gallops, or rubs. RESPIRATORY: Clear to auscultation. Breath sounds equal bilaterally. No wheezes, rales, or rhonchi. GASTROINTESTINAL: Abdomen soft, non-tender, nondistended. EXTREMITIES: No edema or joint tenderness. BACK: Nontender without deformity or crepitance. No flank tenderness. NEURO: AOx3. SKIN: Poor skin turgor No rash or erythema of visible areas Initial Vital Signs Initial Vital Signs: Vital Signs Pulse Rate 98 H 08/20/23 10:20 Blood Pressure 140/72 08/20/23 10:20 Pulse Oximetry 95 08/20/23 10:20 Course Orders Ordered: Discontinued Medications Sodium Chloride (Normal Saline 0.9%) 1,000 mls @ 1,000 mls/hr IV BOLUS ONE Stop: 08/20/23 11:21 Last Infusion: 08/20/23 12:55 Dose: Infused Documented By: Admin: 08/20/23 11:55 Dose: 1,000 mls/hr Documented By: SUBHA Magnesium Sulfate (Magnesium Sulfate) 2 gm in 50 mls @ 25 mls/hr IV NOW ONE Stop: 08/20/23 16:13 Last Infusion: 08/20/23 15:34 Dose: Infused Documented By: SUBHA Co-signed By: ISABELLE Admin: 08/20/23 14:34 Dose: 50 mls/hr Documented By: SUBHA Co-signed By: ISABELLE Sodium Chloride (Normal Saline 0.9%) 500 mls @ 1,000 mls/hr IV BOLUS ONE Stop: 08/20/23 17:18 Last Infusion: 08/20/23 17:25 Dose: Infused Documented By: Admin: 08/20/23 16:55 Dose: 1,000 mls/hr Documented By: SUBHA Vital Signs Vital signs: Vital Signs - 8 hr 08/20/23 13:29 08/20/23 13:29 08/20/23 13:30 Pulse Rate 91 H 85 Pulse Rate [Orthostatic Lying] Pulse Rate [Orthostatic Sitting] Pulse Rate [Orthostatic Standing] Respiratory Rate 23 20 Blood Pressure 136/75 Blood Pressure [Orthostatic Lying] Blood Pressure [Orthostatic Sitting] Blood Pressure [Orthostatic Standing] Pulse Oximetry 96 97 08/20/23 13:30 08/20/23 14:00 08/20/23 14:00 Pulse Rate 84 Pulse Rate [Orthostatic Lying] Pulse Rate [Orthostatic Sitting] Pulse Rate [Orthostatic Standing] Respiratory Rate 20 Blood Pressure 134/71 137/67 Blood Pressure [Orthostatic Lying] Blood Pressure [Orthostatic Sitting] Blood Pressure [Orthostatic Standing] Pulse Oximetry 97 08/20/23 14:30 08/20/23 14:30 08/20/23 15:00 Pulse Rate 80 80 Pulse Rate [Orthostatic Lying] Pulse Rate [Orthostatic Sitting] Pulse Rate [Orthostatic Standing] Respiratory Rate 19 19 Blood Pressure 152/70 H Blood Pressure [Orthostatic Lying] Blood Pressure [Orthostatic Sitting] Blood Pressure [Orthostatic Standing] Pulse Oximetry 98 97 08/20/23 15:00 08/20/23 15:30 08/20/23 15:30 Pulse Rate 85 Pulse Rate [Orthostatic Lying] Pulse Rate [Orthostatic Sitting] Pulse Rate [Orthostatic Standing] Respiratory Rate 20 Blood Pressure 130/64 133/69 Blood Pressure [Orthostatic Lying] Blood Pressure [Orthostatic Sitting] Blood Pressure [Orthostatic Standing] Pulse Oximetry 97 08/20/23 16:00 08/20/23 16:00 08/20/23 16:30 Pulse Rate 82 82 Pulse Rate [Orthostatic Lying] Pulse Rate [Orthostatic Sitting] Pulse Rate [Orthostatic Standing] Respiratory Rate 18 22 Blood Pressure 127/59 L Blood Pressure [Orthostatic Lying] Blood Pressure [Orthostatic Sitting] Blood Pressure [Orthostatic Standing] Pulse Oximetry 97 97 08/20/23 16:30 08/20/23 16:46 08/20/23 17:00 Pulse Rate 81 Pulse Rate [Orthostatic Lying] 84 Pulse Rate [Orthostatic Sitting] 64 Pulse Rate [Orthostatic Standing] 73 Respiratory Rate 19 Blood Pressure 130/67 Blood Pressure [Orthostatic Lying] 118/61 Blood Pressure [Orthostatic Sitting] 109/66 Blood Pressure [Orthostatic Standing] 94/50 L Pulse Oximetry 95 08/20/23 17:00 08/20/23 17:30 08/20/23 17:30 Pulse Rate 79 Pulse Rate [Orthostatic Lying] Pulse Rate [Orthostatic Sitting] Pulse Rate [Orthostatic Standing] Respiratory Rate 16 Blood Pressure 133/62 136/67 Blood Pressure [Orthostatic Lying] Blood Pressure [Orthostatic Sitting] Blood Pressure [Orthostatic Standing] Pulse Oximetry 97 08/20/23 18:00 08/20/23 18:00 08/20/23 18:30 Pulse Rate 78 Pulse Rate [Orthostatic Lying] Pulse Rate [Orthostatic Sitting] Pulse Rate [Orthostatic Standing] Respiratory Rate 20 Blood Pressure 147/68 H 129/99 H Blood Pressure [Orthostatic Lying] Blood Pressure [Orthostatic Sitting] Blood Pressure [Orthostatic Standing] Pulse Oximetry 97 08/20/23 18:30 08/20/23 19:00 08/20/23 19:00 Pulse Rate 83 77 Pulse Rate [Orthostatic Lying] Pulse Rate [Orthostatic Sitting] Pulse Rate [Orthostatic Standing] Respiratory Rate 24 21 Blood Pressure 144/70 H Blood Pressure [Orthostatic Lying] Blood Pressure [Orthostatic Sitting] Blood Pressure [Orthostatic Standing] Pulse Oximetry 96 96 08/20/23 19:30 08/20/23 19:30 08/20/23 20:00 Pulse Rate 80 79 Pulse Rate [Orthostatic Lying] Pulse Rate [Orthostatic Sitting] Pulse Rate [Orthostatic Standing] Respiratory Rate 22 24 Blood Pressure 153/70 H Blood Pressure [Orthostatic Lying] Blood Pressure [Orthostatic Sitting] Blood Pressure [Orthostatic Standing] Pulse Oximetry 98 98 08/20/23 20:00 Pulse Rate Pulse Rate [Orthostatic Lying] Pulse Rate [Orthostatic Sitting] Pulse Rate [Orthostatic Standing] Respiratory Rate Blood Pressure 143/70 H Blood Pressure [Orthostatic Lying] Blood Pressure [Orthostatic Sitting] Blood Pressure [Orthostatic Standing] Pulse Oximetry Medical Decision Making Lab Data 08/20/23 13:02 08/20/23 13:02 Labs: Lab Results 08/20/23 08/20/23 Range/Units 11:30 13:02 WBC 6.8 (4.5-11.0) X10^3/uL RBC 3.93 L (4.5-5.9) X10^6/uL Hgb 13.2 L (13.5-17.5) g/dL Hct 38.4 L (41-53) % MCV 97.8 (80-100) fL MCH 33.7 (26-34) PG MCHC 34.4 (30-36) % RDW 14.8 (11.6-14.8) % Plt Count 219 (150-400) X10^3/uL Neut % (Auto) 72.1 (50-75) % Lymph % (Auto) 9.1 L (25-40) % [place] % (Auto) 17.5 H (3-14) % Eos % (Auto) 0.6 L (2-4) % Baso % (Auto) 0.7 (0-2) % Neut # (Auto) 4900 (3403-4631) /uL Lymph # (Auto) 600 L (2003-8558) /uL [place] # (Auto) 1200 H (0-900) /uL Eos # (Auto) 0 (0-450) /uL Baso # (Auto) 0 (0-100) /uL Sodium 136 L (137-145) mmol/L Potassium 3.4 (3.4-5.1) mmol/L Chloride 96 L (98-107) mmol/L Carbon Dioxide 30 (22-32) mmol/L BUN 26 H (9-20) mg/dL Creatinine 1.24 (0.66-1.25) mg/dL Estimated GFR 58 L (>60) mL/min BUN/Creatinine Ratio 21.0 (6-22) Glucose 105 (80-110) mg/dL Lactate 1.4 (0.7-2.1) mmol/L Calcium 8.9 (8.4-10.2) mg/dL Magnesium 1.0 L (1.6-2.3) mg/dL Total Bilirubin 0.9 (0.2-1.3) mg/dL AST 42 (17-59) IU/L ALT 29 (<50) IU/L Alkaline Phosphatase 50 (38-126) U/L Total Creatine Kinase 41 L (55-170) U/L Troponin I < 0.012 (0.01-0.034) ng/mL NT-Pro-B Natriuret Pep 657 H (<450) pg/mL Total Protein 6.5 (6.3-8.2) g/dL Albumin 3.6 (3.5-5.0) g/dL Globulin 2.9 (1.7-4.1) g/dL Albumin/Globulin Ratio 1.2 (1.0-2.8) SARS-CoV-2 (PCR) Negative (Negative) Influenza A (RT-PCR) Flu a negative (NEGATIVE) Influenza B (RT-PCR) Flu b negative (NEGATIVE) RSV (PCR) Negative (Negative) MDM Narrative Medical decision making narrative: [83] year old patient presents with Multiple etiologies for patient's symptoms considered including, but not limited to: [Dehydration versus electrolyte abnormality versus cardiac versus intracranial hemorrhage versus other] Prior Charts reviewed in our EMR Primary Historian: patient Labs reviewed and interpreted by myself: No leukocytosis, left shift or signs of anemia, primary electrolytes and renal function at baseline, magnesium is low at 1, replaced with 2 g Imaging reviewed: CT of the head without acute findings, chest x-ray without acute findings, left foot x-ray without acute findings After above-stated therapies patient's vitals have normalized, patient is no longer orthostatic and is able to ambulate at baseline with a walker. It is well understood that patient has had a gradual decline outside of the hospital and is in need of further assessment and likely sniff or increased help at home. Social Work has spent considerable time with the patient and arrange for increased home care and recommends social Work as an outpatient to help with possible placement. Patient's symptoms improved over duration of stay with above-stated therapies. Findings and discharge diagnosis discussed with patient/family followed by verbalization of understanding Return precautions discussed with patient/family whom verbalize understanding of diagnosis and plan Discharge Plan Departure Patient Disposition: Home Clinical Impression: Hypomagnesemia, Orthostatic hypotension Instructions: DI for Hypomagnesemia Activity Restrictions/Additional Instructions: *You have been diagnosed with [fall with dehydration and low magnesium. As we discussed at length your history and physical exam are reassuring as are your labs, imaging and response to therapies. At this time there is no indication that hospitalization is necessary.] *What to do: *Please continue to take your regular medications as directed. Please consider the addition of [id number] magnesium, perhaps magnesium oxide 400 mg twice daily to help with his magnesium that frequently runs low. *Please follow up with your primary care provider in 2-3 days, call for an appointment. Let them know you were seen in the Emergency Department and that we ask that you be seen in follow up. We will electronically transmit a record of today's note if your PCP is in our system *If you do not have a primary care provider please contact the [facility] Resource line at [phone]. They will ask some questions about your medical history and help get you set up with a doctor in the community. *Return to Emergency Department if you should have any new, worsening or concerning symptoms, such as [fever greater than 101 F, shaking chills, worsening pain, persistent vomiting or other bothersome symptoms] Prescriptions: No Action omeprazole 20 mg capsule,delayed release(DR/EC) 20 mg PO DAILY Qty: 90 3RF levetiracetam 500 mg tablet 500 mg PO BID Qty: 180 3RF midodrine 2.5 mg tablet 2.5 mg PO 0600,1200,1800 Qty: 270 3RF Rx Instructions: Take 1 tab 3x/day unless BP >120/80. Ensure Liquid 1 ea PO DAILY Qty: 5688 11RF Rx Instructions: Consume 1 can of Ensure type drink daily to twice daily fludrocortisone 0.1 mg tablet 0.2 mg PO DAILY Qty: 180 3RF (DME) Transport Chair See Rx Instructions .Route .MEDSUPPLY Qty: 1 0RF Rx Instructions: Transport Chair. Please fit patient with a chair that will fit his halls and doorways at home. Referrals: Margarita Stoll ARNP [Primary Care Provider] - Stand Alone Forms: Patient Portal/API
--- NOTE | 2023-08-20 10:23 | DI.RAD.S_ITS ---
PROCEDURE: XR CHEST 1V INDICATIONS: weakness TECHNIQUE: One view of the chest was acquired. COMPARISON: [facility], CR, XR CHEST 2V, 07/28/2023, 15:28. FINDINGS: Surgical changes and devices: None. Lungs and pleura: Lungs are clear. No pleural effusions or pneumothorax. Mediastinum: Mediastinal contours appear normal. Heart size is normal. Bones and chest wall: No suspicious bony lesions. Overlying soft tissues appear unremarkable. IMPRESSION: No acute process. Dictated by: Chastity Perales M.D. on 08/20/2023 at 10:39 Approved by: Chastity Perales M.D. on 08/20/2023 at 10:40
--- NOTE | 2023-08-20 10:27 | DI.CT.S_ITS ---
PROCEDURE: CT HEAD/BRAIN WO CON INDICATIONS: fall, weakness TECHNIQUE: Noncontrast 4.5 mm thick angled axial sections acquired from the foramen magnum to the vertex, with coronal and sagittal reformats. For radiation dose reduction, the following was used: automated exposure control, adjustment of mA and/or kV according to patient size. COMPARISON: [facility], CT, CT HEAD/BRAIN WO CON, 06/15/2023, 14:44. FINDINGS: Image quality: Excellent. CSF spaces: Basal cisterns are patent. No extra-axial fluid collections. The ventricles are symmetric in size and shape. Brain: No acute intracranial bleeds or masses. No change in small high attenuation foci within the right anterior frontal lobe, compatible with calcification or hemosiderin. There is cerebral volume loss for age, with resultant ventricular and sulcal prominence. There are periventricular and deep white matter chronic small vessel ischemic changes. There is intracranial internal carotid artery atherosclerosis. Skull and face: Calvarium and visualized facial bones appear intact, without suspicious lesions. Sinuses: Visualized sinuses and mastoids are clear. IMPRESSION: No acute intracranial abnormality. Dictated by: Chastity Perales M.D. on 08/20/2023 at 10:45 Approved by: Chastity Perales M.D. on 08/20/2023 at 10:46
--- NOTE | 2023-08-20 11:30 | PC.NURSE ---
Patient resting on stretcher, cardiac nurse specialist and continuous pulse oximetry on and vitals trending. Patient's at bedside providing history. Patient recalls going to the bathroom, unclear of events after attempting to go bathroom. Patient's states she had checked on patient in bathroom and he was attempting to get up. Patient's states in next 15 minutes caregiver found patient on floor and not breathing, patient placed on his back and CPR started. Patient was awake and breathing upon EMS arrival. Patient with multiple syncopal events and mechanical falls, increasing in frequency since June. Patient was seen Friday by PCP, and the process has been started to patient to transition to SNF. Patient states only complaint at this time is feeling fatigued and c/o left foot pain.
--- NOTE | 2023-08-20 11:48 | DI.RAD.S_ITS ---
PROCEDURE: XR FOOT RT MIN 3V INDICATIONS: pain s/p fall TECHNIQUE: 3 views of the foot were acquired. COMPARISON: None. FINDINGS: Bones: No fractures or dislocations. No suspicious bony lesions. Periarticular osteophyte formation at the 1st metatarsophalangeal joint, as well as the interphalangeal joints of the digits, the tibiotalar, talonavicular, and navicular cuneiform joints. Soft tissues: No tibiotalar joint effusion. Achilles tendon appears normal. IMPRESSION: Osteoarthritis. No acute fracture. No osseous lesion. If symptoms and/or clinical suspicion for pathology persist, further assessment with repeat, or advanced imaging (e.g., CT, MRI, or bone scan) may be helpful for further assessment. Dictated by: Chastity Perales M.D. on 08/20/2023 at 12:18 Approved by: Chastity Perales M.D. on 08/20/2023 at 12:19
[2023-08-20] MEDS: SODIUM CHLORIDE 0.9% 1,000 ML 1000 ML IV (11:55)
[2023-08-20 13:27] LABS: Add Manual Diff / Slide Review NO; Basophils Absolute Auto 0 /uL (0-100); Basophils Percent Auto 0.7 % (0-2); Eosinophils Absolute Auto 0 /uL (0-450); Eosinophils Percent Auto 0.6 % (2-4); Hematocrit 38.4 % (41-53); Hemoglobin 13.2 g/dL (13.5-17.5); Lymphocytes Absolute Auto 600 /uL (1100-4500); Lymphocytes Percent Auto 9.1 % (25-40); Mean Corpuscular HGB Conc 34.4 % (30-36); Mean Corpuscular Hemoglobin 33.7 PG (26-34); Mean Corpuscular Volume 97.8 fL (80-100); Monocytes Absolute Auto 1200 /uL (0-900); Monocytes Percent Auto 17.5 % (3-14); Neutrophils Absolute Auto 4900 /uL (1500-7000); Neutrophils Percent Auto 72.1 % (50-75); Platelet Count 219 X10^3/uL (150-400); Red Blood Cell Count 3.93 X10^6/uL (4.5-5.9); Red Cell Distribution Width 14.8 % (11.6-14.8); White Blood Cell Count 6.8 X10^3/uL (4.5-11.0)
[2023-08-20 13:28] LABS: Influenza A - CEPHEID Flu A NEGATIVE (NEGATIVE); Influenza B - CEPHEID Flu B NEGATIVE (NEGATIVE); Respiratory Syncytial Virus Negative (Negative)
[2023-08-20 13:33] LABS: Lactate (Lactic Acid) 1.4 mmol/L (0.7-2.1)
[2023-08-20 13:34] LABS: Creatine Kinase 41 U/L (55-170)
[2023-08-20 13:36] LABS: Alanine Aminotransferase 29 IU/L (<50); Albumin 3.6 g/dL (3.5-5.0); Albumin Globulin Ratio 1.2 (1.0-2.8); Alkaline Phosphatase 50 U/L (38-126); Aspartate Aminotransferase 42 IU/L (17-59); Bilirubin Total 0.9 mg/dL (0.2-1.3); Blood Urea Nitrogen 26 mg/dL (9-20); Calcium 8.9 mg/dL (8.4-10.2); Carbon Dioxide 30 mmol/L (22-32); Chloride 96 mmol/L (98-107); Estimated Glomerular Filt Rate 58 mL/min (>60); Globulin 2.9 g/dL (1.7-4.1); Glucose 105 mg/dL (80-110); HEMOLYSIS < 15 (0-50); Potassium 3.4 mmol/L (3.4-5.1); Sodium 136 mmol/L (137-145); Total Protein 6.5 g/dL (6.3-8.2)
[2023-08-20 13:45] LABS: NT-proBNP (BNP-Adult 18+) 657 pg/mL (<450); Troponin I < 0.012 ng/mL (0.01-0.034)
[2023-08-20 13:47] LABS: COVID-19 CEPHEID 4-PLEX PCR Negative (Negative)
[2023-08-20] MEDS: MAGNESIUM SULFATE 2 GM/50 ML PIGGYBACK IV (14:34)
[2023-08-20] MEDS: SODIUM CHLORIDE 0.9% 500 ML 1000 ML IV (16:55)
--- NOTE | 2023-08-20 18:33 | CM.SWNOTE ---
Addendum entered by DONTAE Sharif 08/22/23 12:01: Received call from yadira Jarvis [id number], manager switch at [address] who requests coordination assist from this CHARTER COORDINATOR for patient's transition from home to [facility]. Placed call to Kristi at [facility] who explains that spouse is able to pay privately for SNF and ppk has been faxed to PCP's office. Once it has been completed and faxed back, Kristi can begin the SNF auth request through patient's [facility]- a denial is needed before [facility] can accept private payment. Updated Simona w/info above. RN working on the ppk. This CHARTER COORDINATOR will assist by completing the PASRR and dropping off at [address] DONTAE Denis Original Note: ED CHARTER COORDINATOR Note Patient is 83 y/o male who presents to ED via BLS after GLF. It is reported by [facility] that PT found patient down in the bathroom, breathing, eyes rolled back with pulse. It is reported that patient has a hx of several recent GLFs due to weakness and patient has been declining since June. Patient was admitted for syncopal episode in June and d/c'd to [facility] SNF rehab. Patient's PCP is MELVINA Salguero. Patient has [facility] insurance, medicare. Patient has hx of hypotension, hypomagnesium, hx of prostate cancer, synoope, Alcohol use disorder, seizures, alcoholic pancreatitis and pancreatic mass. CHARTER COORDINATOR enters room to meet with patient, present is patient's spouse. patient presents as A/Ox4, patient's spouse does most of the talking. Patient does endorse concern for increase in falls and concern for spouse's inability to pick him up. It is reported that patient has [facility] with PT/OT and PT was there this morning when fall occurred. Patient has FWW at home as well as grab bars. Patient has close f/u with PCP and spouse reports that PCP is assisting her in getting patient to [facility] rehab. CHARTER COORDINATOR calls February at [facility] and leaves VM regarding patient requesting coordination and f/u with spouse and PCP. CHARTER COORDINATOR calls [facility] and requests further PT/OT services and CHARTER COORDINATOR adds order for HH CHARTER COORDINATOR to assist spouse and support her with seeking higher level of care for patient. CHARTER COORDINATOR provides patient and spouse with list of caregivers and senior resource guide. CHARTER COORDINATOR encourages patient's spouse to f/u with PCP and Jude. Patient has had thorough medical evaluation in ED and at this time there is no medical diagnosis appropriate for admission. Patient is medically clear for d/c. This is thoroughly explained to patient and spouse. Patient and spouse endorse preference for BLS home to ensure safety into househould. Plan: Upon medical clearance, patient to d/c to home via BLS, patient and spouse to f/u with PCP, [facility] and [facility], CHARTER COORDINATOR to assist in seeking higher level of care for patient with resources provided. Charity Puga, COMPUTER SERVICE TECHNICIAN
--- NOTE | 2023-08-20 19:12 | PC.NURSE ---
Patient's Margarita called and updated on S ETA of 1999. Discharge instructions to be given to S team to take with patient.
== END 2023-08-20 20:16 | disposition home or self-care (01) ==
PROVIDERS: Emergency Provider Emergency Medicine; PCP Nurse Practitioner
DX: E83.42 Hypomagnesemia (principal); I95.1 Orthostatic hypotension; Z87.891 Personal history of nicotine dependence
CPT/HCPCS: 0241U; 70450; 71045; 73630; 80053; 82550; 83605; 83735; 83880; 84484; 85025; 87040; 93005; 96361; 96365; 96366; 99283; J3475

== ENCOUNTER 2023-08-22 14:06 | Observation (INO) | payer MEDICARE, SELFPAY ==
[2023-06-15 20:23] VITALS: BMI 28.5
[2023-08-22] VITALS (17 sets, daily range): BP systolic 133–167; BP diastolic 70–86; PULSE 92–111; RESP 16–24; TEMP 36.8–37.2; O2SAT 93–98; BMI 25.8; BMI 26.8
--- NOTE | 2023-08-22 14:30 | DI.RAD.S_ITS ---
PROCEDURE: XR CHEST 1V INDICATIONS: altered mental status TECHNIQUE: One view of the chest was acquired. COMPARISON: [facility], CR, XR CHEST 1V, 08/20/2023, 10:30. FINDINGS: Surgical changes and devices: None. Lungs and pleura: Lungs are clear. No pleural effusions or pneumothorax. Mediastinum: Mediastinal contours appear normal. Heart size is normal. Bones and chest wall: No suspicious bony lesions. Overlying soft tissues appear unremarkable. IMPRESSION: No acute cardiopulmonary abnormality is seen. Dictated by: Jo Montoya M.D. on 08/22/2023 at 15:42 Approved by: Jo Montoya M.D. on 08/22/2023 at 15:42
[2023-08-22 14:45] LABS: Add Manual Diff / Slide Review NO; Basophils Absolute Auto 0 /uL (0-100); Basophils Percent Auto 0.4 % (0-2); Eosinophils Absolute Auto 0 /uL (0-450); Eosinophils Percent Auto 0.1 % (2-4); Hematocrit 40.2 % (41-53); Hemoglobin 13.9 g/dL (13.5-17.5); Lymphocytes Absolute Auto 800 /uL (1100-4500); Lymphocytes Percent Auto 8.9 % (25-40); Mean Corpuscular HGB Conc 34.5 % (30-36); Mean Corpuscular Hemoglobin 33.5 PG (26-34); Mean Corpuscular Volume 97.2 fL (80-100); Monocytes Absolute Auto 1000 /uL (0-900); Monocytes Percent Auto 10.8 % (3-14); Neutrophils Absolute Auto 7300 /uL (1500-7000); Neutrophils Percent Auto 79.8 % (50-75); Platelet Count 225 X10^3/uL (150-400); Red Blood Cell Count 4.13 X10^6/uL (4.5-5.9); Red Cell Distribution Width 14.6 % (11.6-14.8); White Blood Cell Count 9.1 X10^3/uL (4.5-11.0)
[2023-08-22 14:47] LABS: Ammonia (NH3) < 9 umol/L (9-30)
[2023-08-22 14:48] LABS: Alanine Aminotransferase 25 IU/L (<50); Albumin 3.9 g/dL (3.5-5.0); Albumin Globulin Ratio 1.1 (1.0-2.8); Alkaline Phosphatase 54 U/L (38-126); Aspartate Aminotransferase 34 IU/L (17-59); Bilirubin Total 1.1 mg/dL (0.2-1.3); Blood Urea Nitrogen 20 mg/dL (9-20); Calcium 9.6 mg/dL (8.4-10.2); Carbon Dioxide 33 mmol/L (22-32); Chloride 95 mmol/L (98-107); Estimated Glomerular Filt Rate > 60 mL/min (>60); Globulin 3.5 g/dL (1.7-4.1); Glucose 145 mg/dL (80-110); HEMOLYSIS < 15 (0-50); Potassium 3.3 mmol/L (3.4-5.1); Sodium 136 mmol/L (137-145); Total Protein 7.4 g/dL (6.3-8.2)
--- NOTE | 2023-08-22 15:42 | ED.WEAKNESS ---
HPI - Weakness General Chief complaint: Weakness Stated complaint: Increased Weakness Time Seen by Provider: 08/22/23 15:42 Source: family and EMS Mode of arrival: EMS History of Present Illness HPI Narrative: Patient is a 83-year-old male history of GERD hypertension hyperlipidemia presents for the 2nd time this week with weakness and falls. He was seen evaluated here August 20 or he would pull workup including head CT and blood work. It was determined that he did not meet admission criteria and was discharged home. reports that he is taking more today she does not feel safe with him at home he is very unsteady on his feet. Patient was also seen on August 18 by PCP there is concern for possible alcohol use disorder. Social work has already been involved in patient's care trying to get him placed this seems like it has been an ongoing decline. states that she can not take care of him at home she has tried already and it is not working. Related Data Previous Rx's Medication Instructions Recorded omeprazole 20 mg capsule,delayed 20 mg PO DAILY #90 caps 06/09/23 release levetiracetam 500 mg tablet 500 mg PO BID #180 tabs 07/28/23 midodrine 2.5 mg tablet 2.5 mg PO 0600,1200,1800 #270 tabs 07/28/23 fludrocortisone 0.1 mg tablet 0.2 mg (2 x 0.1 mg) PO DAILY #180 08/18/23 tabs food supplemt, lactose-reduced 1 ea PO DAILY #5,688 mL 08/18/23 (Ensure oral liquid) Transport Chair #1 ea 08/20/23 Allergies Allergy/AdvReac Type Severity Reaction Status Date / Time No Known Allergies Allergy Verified 08/22/23 14:13 Patient History Medical History Hypotension Protein calorie malnutrition History of prostate cancer Seizure Thrombocytopenia Macrocytosis Alcoholic pancreatitis GERD (gastroesophageal reflux disease) Combined hyperlipidemia Falls frequently Intraparenchymal hemorrhage of brain Essential tremor Fatty liver Concussion Right fibular fracture Surgical History Status post radical cystoprostatectomy Status post colonoscopy S/P total hip arthroplasty Family History Father Prostate cancer Kidney problem Mother Old age Social History household members: spouse Smoking Status: Former smoker Tobacco: How many years used: 50 second hand exposure: No alcohol intake: current substance use type: does not use Smoking Status: Former smoker alcohol intake frequency: a few times a week Substance Use Type: does not use Exam Initial Vital Signs Initial Vital Signs: Vital Signs Temperature 98.3 F 08/22/23 14:05 Pulse Rate 107 H 08/22/23 14:05 Respiratory Rate 22 08/22/23 14:05 Blood Pressure 137/86 08/22/23 14:05 Pulse Oximetry 95 08/22/23 14:05 Oxygen Delivery Method Room Air 08/22/23 14:05 GENERAL: Alert week 83-year-old male HEENT: Head atraumatic,EOMI, pupils reactive, face symmetric, moist mucous membranes CARDIOVASCULAR: Regular rate and rhythm without murmurs, rubs or gallops. RESPIRATORY: Breath sounds equal bilaterally, no wheezes rales or rhonchi. ABDOMEN: Soft, nontender. Normoactive bowel sounds all 4 quadrants. No guarding or rebound. EXTREMITIES: Normal range of motion, no clubbing or edema. Neurovascularly intact NEUROLOGICAL: Alert no facial droop hcc coders strength equal bilaterally. No obvious shaking or tremor SKIN: Warm, dry, no laceration, no petechiae, no rashes or lesions. Course Orders Ordered: ED Orders 08/22/23 14:15 EKG-12 Lead Stat 08/22/23 14:23 Ammonia (NH3) Stat Complete Blood Count AUTO DIFF Stat Comprehensive Metabolic Panel Stat 08/22/23 14:30 XR chest 1V Stat 08/22/23 15:09 Consult to [facility] - Service Order Taker Stat 08/22/23 15:43 CT head/brain wo con Stat 08/22/23 17:05 Urinalysis and Microscopic Stat Urine Drug Screen, Rapid Stat 08/22/23 18:51 Consult to Occupational Therapy Evaluate & Treat Consult to Physical Therapy Evaluate & Treat 08/22/23 18:52 Consult to Dietitian, Adult Routine Consult to [facility] Service Order Taker Routine 08/23/23 05:00 BMP [Basic Metabolic Panel] DAILY CBC Auto Diff [Complete Blood Count AUTO DIFF] DAILY Magnesium DAILY 08/24/23 05:00 BMP [Basic Metabolic Panel] DAILY CBC Auto Diff [Complete Blood Count AUTO DIFF] DAILY Magnesium DAILY 08/25/23 05:00 BMP [Basic Metabolic Panel] DAILY CBC Auto Diff [Complete Blood Count AUTO DIFF] DAILY Magnesium DAILY 08/26/23 05:00 BMP [Basic Metabolic Panel] DAILY CBC Auto Diff [Complete Blood Count AUTO DIFF] DAILY 08/27/23 05:00 BMP [Basic Metabolic Panel] DAILY CBC Auto Diff [Complete Blood Count AUTO DIFF] DAILY Acetaminophen (Acetaminophen 325 Mg Tablet) 650 mg PO Q6H PRN PRN Reason: Fever/Mild Pain (1-3) Enoxaparin Sodium (Enoxaparin 40 Mg/0.4 Ml Syringe) 40 mg SUBCUT DAILY [facility] Fludrocortisone Acetate (Fludrocortisone 0.1 Mg Tablet) 0.2 mg PO DAILY [facility] Folic Acid (Folic Acid 1 Mg Tablet) 1 mg PO DAILY [facility] Magnesium Sulfate (Magnesium Sulfate) 4 gm in 100 mls @ 25 mls/hr IV NOW ONE Stop: 08/22/23 22:50 Levetiracetam (Levetiracetam 250 Mg Tablet) 500 mg PO BID [facility] Lorazepam (Lorazepam 1 Mg Tablet) 0 mg PO CIWAPRN PRN; Protocol PRN Reason: Alcohol Withdrawal Melatonin (Melatonin 3 Mg Tablet) 6 mg PO BEDTIME PRN PRN Reason: Insomnia Midodrine (Midodrine Hcl 5 Mg Tablet) 2.5 mg PO 0600,1200,1800 [facility] Multivitamins (Multivitamin 1 Tablet) 1 tab PO DAILY [facility] Naloxone HCl (Naloxone 0.4 Mg/Ml Vial) 0.2 mg IV Q2MIN PRN PRN Reason: Opiate Reversal Non-Formulary Medication (Omeprazole) 20 mg PO DAILY [facility] Polyethylene Glycol (Polyethylene Glycol 3350 17 Gm Powd.Pack) 17 gm PO DAILY PRN PRN Reason: Constipation Sennosides (Sennosides 8.6 Mg Tablet) 8.6 mg PO BID PRN PRN Reason: Constipation Thiamine HCl (Thiamine 100 Mg Tablet) 100 mg PO DAILY [facility] Stop: 08/26/23 09:01 Discontinued Medications Sodium Chloride (Normal Saline 0.9%) 1,000 mls @ 1,000 mls/hr IV BOLUS ONE Stop: 08/22/23 18:09 Last Admin: 08/22/23 17:17 Dose: 1,000 mls/hr Documented By: NERI Vital Signs Vital signs: Vital Signs - 8 hr 08/22/23 14:05 08/22/23 14:10 08/22/23 14:12 Temperature 98.3 F Pulse Rate 107 H 111 H Respiratory Rate 22 Blood Pressure 137/86 137/86 Pulse Oximetry 95 Oxygen Delivery Method Room Air 08/22/23 14:12 08/22/23 14:30 08/22/23 14:36 Temperature Pulse Rate 107 H 101 H Respiratory Rate 22 24 Blood Pressure 158/83 H Pulse Oximetry 96 95 Oxygen Delivery Method 08/22/23 14:36 08/22/23 15:00 08/22/23 15:01 Temperature Pulse Rate 103 H 98 H 97 H Respiratory Rate 22 24 22 Blood Pressure Pulse Oximetry 96 96 96 Oxygen Delivery Method 08/22/23 15:01 08/22/23 15:30 08/22/23 16:00 Temperature Pulse Rate 92 H 96 H Respiratory Rate 22 24 Blood Pressure 155/74 H Pulse Oximetry 98 95 Oxygen Delivery Method 08/22/23 16:00 08/22/23 16:30 08/22/23 16:31 Temperature Pulse Rate 100 H Respiratory Rate 22 Blood Pressure 139/74 133/73 Pulse Oximetry 95 Oxygen Delivery Method 08/22/23 16:31 08/22/23 17:00 08/22/23 17:00 Temperature Pulse Rate 100 H 104 H Respiratory Rate 24 22 Blood Pressure 136/71 Pulse Oximetry 95 97 Oxygen Delivery Method 08/22/23 17:30 08/22/23 17:31 08/22/23 17:31 Temperature Pulse Rate 98 H 98 H Respiratory Rate 22 22 Blood Pressure 167/79 H Pulse Oximetry 93 95 Oxygen Delivery Method 08/22/23 18:00 08/22/23 18:00 08/22/23 18:30 Temperature Pulse Rate 102 H Respiratory Rate 22 Blood Pressure 152/71 H 159/70 H Pulse Oximetry 94 Oxygen Delivery Method 08/22/23 18:30 Temperature Pulse Rate 96 H Respiratory Rate 24 Blood Pressure Pulse Oximetry 96 Oxygen Delivery Method MDM - Weakness Lab Data 08/22/23 14:23 08/22/23 14:23 Labs: Lab Results 08/22/23 08/22/23 Range/Units 14:23 17:05 WBC 9.1 (4.5-11.0) X10^3/uL RBC 4.13 L (4.5-5.9) X10^6/uL Hgb 13.9 (13.5-17.5) g/dL Hct 40.2 L (41-53) % MCV 97.2 (80-100) fL MCH 33.5 (26-34) PG MCHC 34.5 (30-36) % RDW 14.6 (11.6-14.8) % Plt Count 225 (150-400) X10^3/uL Neut % (Auto) 79.8 H (50-75) % Lymph % (Auto) 8.9 L (25-40) % [place] % (Auto) 10.8 (3-14) % Eos % (Auto) 0.1 L (2-4) % Baso % (Auto) 0.4 (0-2) % Neut # (Auto) 7300 H (6106-4051) /uL Lymph # (Auto) 800 L (3308-3470) /uL [place] # (Auto) 1000 H (0-900) /uL Eos # (Auto) 0 (0-450) /uL Baso # (Auto) 0 (0-100) /uL Sodium 136 L (137-145) mmol/L Potassium 3.3 L (3.4-5.1) mmol/L Chloride 95 L (98-107) mmol/L Carbon Dioxide 33 H (22-32) mmol/L BUN 20 (9-20) mg/dL Creatinine 1.00 (0.66-1.25) mg/dL Estimated GFR > 60 (>60) mL/min BUN/Creatinine Ratio 20.0 (6-22) Glucose 145 H (80-110) mg/dL Calcium 9.6 (8.4-10.2) mg/dL Total Bilirubin 1.1 (0.2-1.3) mg/dL AST 34 (17-59) IU/L ALT 25 (<50) IU/L Alkaline Phosphatase 54 (38-126) U/L Ammonia < 9 L (9-30) umol/L Total Protein 7.4 (6.3-8.2) g/dL Albumin 3.9 (3.5-5.0) g/dL Globulin 3.5 (1.7-4.1) g/dL Albumin/Globulin Ratio 1.1 (1.0-2.8) Urine Color Yellow Urine Appearance Clear Urine pH 8.0 (4.5-8.0) Ur Specific [place] 1.020 (1.000-1.035) Urine Protein 1+ H (Negative) Urine Glucose (UA) Trace H (Negative) g/dL Urine Ketones Negative (NEGATIVE) Urine Occult Blood Negative (Negative) Urine Nitrate Negative (Negative) Urine Bilirubin 1+ H (NEGATIVE) Ur Bilirubin Confirm Cancelled Urine Urobilinogen 2.0 H (0.2) E.U./dL Ur Leukocyte Esterase Negative (NEGATIVE) Urine RBC 0-1/hpf (0-5/HPF) Urine WBC 0-1/hpf (0-5/HPF) Ur Squamous Epith Cells 0-1 /hpf (0-5/HPF) Ur Transition Epith Cell 0-1/hpf (0-5/HPF) Ur Renal Epithelial Cell 0-1/hpf (0-1/HPF) Urine Bacteria None seen (None) Ur Culture Indicated? Cult not indicated U Opiates 300ng/mL cut Negative (Negative) Ur Oxycodone Screen Negative (Negative) Urine Methadone Screen Negative (Negative) Ur Barbiturates Screen Negative (Negative) U Tricyclic Antidepress Negative (Negative) Ur Phencyclidine Scrn Negative (Negative) Ur Amphetamines Screen Negative (Negative) U Methamphetamines Scrn Negative (Negative) Ur MDMA Scrn (Ecstasy) Negative (Negative) U Benzodiazepines Scrn Negative (Negative) Urine Cocaine Screen Negative (Negative) U Marijuana (THC) Screen Negative (Negative) Imaging Data CT scan - head: Radiologist Impression: PROCEDURE: CT HEAD/BRAIN WO CON INDICATIONS: prior hemorrhage increased weakness TECHNIQUE: Noncontrast 4.5 mm thick angled axial sections acquired from the foramen magnum to the vertex, with coronal and sagittal reformats. For radiation dose reduction, the following was used: automated exposure control, adjustment of mA and/or kV according to patient size. COMPARISON: [facility], CT, CT HEAD/BRAIN WO CON, 09/26/2022, 15:35. [facility], CT, CT HEAD/BRAIN WO CON, 09/26/2022, 19:25. [facility], CT, CT HEAD/BRAIN WO CON, 08/20/2023, 10:29. [facility], CT, CT HEAD/BRAIN WO CON, 06/15/2023, 14:44. FINDINGS: Image quality: Excellent. CSF spaces: Basal cisterns are patent. No extra-axial fluid collections. The ventricles are symmetric in size and shape. Brain: No new intracranial bleeds or masses. A small focus of high density within the right frontal deep white matter seen on series 6, image 23 appears slightly less prominent than on the comparison CT from 08/20/23. However, this could simply represent differences in scan level. There is cerebral volume loss for age, with resultant ventricular and sulcal prominence. There are periventricular and deep white matter chronic small vessel ischemic changes. There is intracranial internal carotid artery atherosclerosis. Skull and face: Calvarium and visualized facial bones appear intact, without suspicious lesions. Sinuses: Visualized sinuses and mastoids are clear. IMPRESSION: A small focus of high density has been present within the deep white matter of the right frontal lobe, measuring only approximately 5 mm in dimension. This appears slightly less prominent than on the CT study from 2 days ago but this has been present also on prior CT scanning from September of this year. This therefore could simply represent a focus of deep white matter calcification or hemosiderin deposition after prior hemorrhage. Regardless, no new hemorrhage is suspected. A source of new symptoms is not found. Dictated by: Mejia Joseph M.D. on 08/22/2023 at 16:54 Chest x-ray: Radiologist Impression: PROCEDURE: XR CHEST 1V INDICATIONS: altered mental status TECHNIQUE: One view of the chest was acquired. COMPARISON: [facility], , XR CHEST 1V, 08/20/2023, 10:30. FINDINGS: Surgical changes and devices: None. Lungs and pleura: Lungs are clear. No pleural effusions or pneumothorax. Mediastinum: Mediastinal contours appear normal. Heart size is normal. Bones and chest wall: No suspicious bony lesions. Overlying soft tissues appear unremarkable. IMPRESSION: No acute cardiopulmonary abnormality is seen. Dictated by: Jo Montoya M.D. on 08/22/2023 at 15:42 ECG Data Interpretation: Tachycardia irregular heart rate 105 low voltage FL interval 2 QTC 417 MDM Narrative Medical decision making narrative: Patient 83-year-old male failing. His last alcohol intake was 5 days ago possible withdrawal not having obvious agitation or tremors or sooner. Blood work has been reviewed and similar to previously repeat head CT does not show any changes. Social work involved she is made phone calls to [employer] reports that [facility] may take him but not for a couple of days would likely be in the ED mental holding pattern through the weekend.. Please refer to social work notes Dr. Newsome updated on patient's symptoms test results and kindly accepts patient. Discharge Plan Departure Patient Disposition: Admitted As Inpatient Clinical Impression: Weakness
--- NOTE | 2023-08-22 16:35 | CM.DANOTE ---
Initial Assessment Note Patient is an 83 you male, resident of [place], presents via EMS from home, spouse states she can no longer care for patient and needs help getting patient to [facility]. This is patient's second ER visit this week. Patient also seen 08.07.23 in the ER for similar presentation, last medical admission was June 2023 for CVA and subdural hematoma, discharged to [facility]. PCP: Margarita Stoll Payer: [facility] This CIGARETTE CARTON SEALER working throughout the day with DELIO Jarvis, wire brush maker for patient's PCP Margarita Stoll . Apparently, during patient's ER visit 08.20.23, ED CIGARETTE CARTON SEALER Charity had discussed in home care resources vs facility placement options w/spouse Margarita. Inevitably, medical work up showed no reason for admission and patient was discharged home. Further coordination was done between spouse and PCP Margarita Stoll's office yesterday/today and a plan was set in motion for patient to admit directly from home to [facility] via private payment. According to Kristi at [facility], an auth vs denial from [facility] is required before [facility] can accept private payment from spouse. Kristi was waiting today to receive the completed and signed packet from [facility] before submitting the auth request to [facility]. This CIGARETTE CARTON SEALER completed a PASRR and dropped this off at [facility] to include in packet. Meanwhile, patient presents to the ED with spouse. According to this CIGARETTE CARTON SEALER's visit with spouse Margarita in ER07, spouse has needed to call 911 for assist in getting patient up from the floor I don't even know how many times, I lost count. Spouse explains patient's last drink was Friday. Patient's care needs have continued to increase throughout the week, spouse denies looking into inserter operator, says she has been trying to get patient into [facility]. DELIO Jarvis w/ [employer] faxed the completed and signed packet today at 1650 to [facility]. Kristi at [facility] confirms she has received this packet and has begun auth request through [facility]/[employer]. Timeline for response from [facility] remains unknown, thus, patient will likely board in the ER vs admit to the acute care floor until placement can be secured at [facility]. [facility] has a bed waiting for patient once [facility] receives either approval vs denial from [facility] and spouse provides one month deposit, private payment. Kristi requests this CIGARET[employer] C[employer] SEALER reiterate with spouse that private payment will be required in order to admit if [facility] denies. A 30 day deposit is required before admission. No PT/OT available this afternoon/evening to assess patient in the ED. Updated ED provider. Updated spouse Margarita w/summary of above and what to expect next. Plan: Discharge to [facility] is anticipated over the next 24-72 hours, admissions contact at [facility] this weekend is [place]. SW/CM team will need to follow closely to assist in coordination of discharge plan from . DONTAE Denis Discharge Planning/Care Management CM Discharge Assessment Start: 08/22/23 16:19 Freq: Status: Active Protocol: Document 08/22/23 16:20 PRATEEK (Rec: 08/22/23 16:23 PRATEEK [id number]) Discharge Planning Assessment Assigned Template Layout Worker DONTAE Ferrell DPOA/Assigned Designee Name Margarita Jansen, spouse Contact Information [phone] Advance Directives? Yes Advance Directives on File No History Provided By Patient,Family Member,Medical Record Prior Living Arrangements House Household Members spouse Type of transporation used prior to Relies on Others admit Independent with ADL's No Is patient alert and oriented? Yes Needs Assistance With Bathing,Grooming,Meal Prep, Toileting,Managing Medications ,Home Chores / Shopping Comment Increased care needs over the last week per spouse Patient/Family Preference [facility] Facility Comment Attempting placement at [facility], see narrative Discharge Plan [facility] Facility Transportation Arrangement Likely wheelchair van Referrals Initiated [facility] Additional Comment [facility]
[2023-08-22] MEDS: SODIUM CHLORIDE 0.9% 1,000 ML 1000 ML IV (17:17)
[2023-08-22 17:24] LABS: Appearance Urine UA CLEAR; Color Urine UA YELLOW; Glucose Urine UA TRACE g/dL (Negative); Ketones Urine UA NEGATIVE (NEGATIVE); Leukocyte Esterase Urine UA NEGATIVE (NEGATIVE); Nitrite Urine UA NEGATIVE (Negative); Occult Blood Urine UA NEGATIVE (Negative); Protein Urine UA 1+ (Negative)
[2023-08-22 17:28] LABS: Ur Creatinine Normal (Normal); Ur Specific Gravity Normal (Normal); Urine pH Normal (Normal)
[2023-08-22 17:29] LABS: UR Morphine/Opiate cutoff 300 Negative (Negative); Urine Amphetamines Negative (Negative); Urine Barbiturates Negative (Negative); Urine Benzodiazepines Negative (Negative); Urine Cocaine Negative (Negative); Urine MDMA Negative (Negative); Urine Methadone Negative (Negative); Urine Methamphetamines Negative (Negative); Urine Oxycodone Negative (Negative); Urine Phencyclidine Negative (Negative); Urine Tetrahydrocannabinol Negative (Negative); Urine Tricyclic Antidepressant Negative (Negative)
[2023-08-22 17:34] LABS: Bacteria Urine None Seen; Bilirubin Urine UA 1+ (NEGATIVE); Culture Indicated Urine Cult Not Indicated; RBC Urine 0-1/HPF (0-5/HPF); Renal Epithelial Cells Urine 0-1/HPF (0-1/HPF); Squamous Epithelial Cell Urine 0-1 /HPF (0-5/HPF); Transitional Epi Cells Urine 0-1/HPF (0-5/HPF); WBC Urine 0-1/HPF (0-5/HPF)
--- NOTE | 2023-08-22 18:30 | PM.HP.1 ---
History of Present Illness History of Present Illness Date Patient Seen: 08/22/23 Chief complaint: Increased Weakness Narrative: Carlos Jansen is an 82yo M with PMH of remote ICH, daily alcohol use, alcoholic pancreatitis, HLD, fatty liver, GERD, and chronic thrombocytopenia who presents with failure to thrive. Patient has been falling at home per and she cannot keep caring for him. She brought him to the ED for placement. OCCUPATIONAL HEALTH NURSING DIRECTOR arranged him going to [facility] but it will take a few days for auth to complete. He is being admitted for PT/OT consults and SNF placement. Patient himself has no complaints. He denies CP, NV, SOB, withdrawals, abd pain or diarrhea. [facility] Medical History Hypotension Protein calorie malnutrition History of prostate cancer Seizure Thrombocytopenia Macrocytosis Alcoholic pancreatitis GERD (gastroesophageal reflux disease) Combined hyperlipidemia Falls frequently Intraparenchymal hemorrhage of brain Essential tremor Fatty liver Concussion Right fibular fracture Surgical History Status post radical cystoprostatectomy Status post colonoscopy S/P total hip arthroplasty Family History Father Prostate cancer Kidney problem Mother Old age Social History household members: spouse Smoking Status: Former smoker Tobacco: How many years used: 50 second hand exposure: No alcohol intake: current substance use type: does not use Meds Home Medications and Allergies Home Medications Medication Instructions Recorded Confirmed Type omeprazole 20 mg capsule,delayed 20 mg PO DAILY #90 caps 06/09/23 08/18/23 Rx release levetiracetam 500 mg tablet 500 mg PO BID #180 tabs 07/28/23 08/18/23 Rx midodrine 2.5 mg tablet 2.5 mg PO 0600,1200,1800 #270 tabs 07/28/23 08/18/23 Rx fludrocortisone 0.1 mg tablet 0.2 mg (2 x 0.1 mg) PO DAILY #180 08/18/23 08/18/23 Rx tabs food supplemt, lactose-reduced 1 ea PO DAILY #5,688 mL 08/18/23 08/18/23 Rx (Ensure oral liquid) Transport Chair #1 ea 08/20/23 08/20/23 Rx Allergies Allergy/AdvReac Type Severity Reaction Status Date / Time No Known Allergies Allergy Verified 08/22/23 14:13 Review of Systems Review of Systems Narrative: All other systems reviewed with the patient and are negative unless otherwise stated. Exam Vital Signs (past 8 hours): - 08/22/23 14:05 08/22/23 14:10 08/22/23 14:12 Temperature 98.3 F Pulse Rate 107 H 111 H Respiratory Rate 22 Blood Pressure 137/86 137/86 Pulse Oximetry 95 Oxygen Delivery Method Room Air 08/22/23 14:12 Temperature Pulse Rate 107 H Respiratory Rate 22 Blood Pressure Pulse Oximetry 96 Oxygen Delivery Method Oxygen Delivery Method Room Air Narrative Exam Narrative: GEN: no acute distress, tremulous HEENT: dry mucous membranes, PERRL NECK: trachea midline, no JVD CV: regular rate and rhythm, no murmurs PULM: clear bilaterally ABD: soft, nontender, nondistended, no organomegaly EXT: warm and well perfused with no edema NEURO: awake, alert, oriented to person place and time, no focal deficits. Objective Labs 08/22/23 14:23 08/22/23 14:23 Labs: Laboratory Results - last 24 hr 08/22/23 08/22/23 14:23 17:05 WBC 9.1 RBC 4.13 L Hgb 13.9 Hct 40.2 L MCV 97.2 MCH 33.5 MCHC 34.5 RDW 14.6 Plt Count 225 Neut % (Auto) 79.8 H Lymph % (Auto) 8.9 L [place] % (Auto) 10.8 Eos % (Auto) 0.1 L Baso % (Auto) 0.4 Neut # (Auto) 7300 H Lymph # (Auto) 800 L [place] # (Auto) 1000 H Eos # (Auto) 0 Baso # (Auto) 0 Sodium 136 L Potassium 3.3 L Chloride 95 L Carbon Dioxide 33 H BUN 20 Creatinine 1.00 Estimated GFR > 60 BUN/Creatinine Ratio 20.0 Glucose 145 H Calcium 9.6 Total Bilirubin 1.1 AST 34 ALT 25 Alkaline Phosphatase 54 Ammonia < 9 L Total Protein 7.4 Albumin 3.9 Globulin 3.5 Albumin/Globulin Ratio 1.1 Urine Color Yellow Urine Appearance Clear Urine pH 8.0 Ur Specific [place] 1.020 Urine Protein 1+ H Urine Glucose (UA) Trace H Urine Ketones Negative Urine Occult Blood Negative Urine Nitrate Negative Urine Bilirubin 1+ H Ur Bilirubin Confirm Cancelled Urine Urobilinogen 2.0 H Ur Leukocyte Esterase Negative Urine RBC 0-1/hpf Urine WBC 0-1/hpf Ur Squamous Epith Cells 0-1 /hpf Ur Transition Epith Cell 0-1/hpf Ur Renal Epithelial Cell 0-1/hpf Urine Bacteria None seen Ur Culture Indicated? Cult not indicated U Opiates 300ng/mL cut Negative Ur Oxycodone Screen Negative Urine Methadone Screen Negative Ur Barbiturates Screen Negative U Tricyclic Antidepress Negative Ur Phencyclidine Scrn Negative Ur Amphetamines Screen Negative U Methamphetamines Scrn Negative Ur MDMA Scrn (Ecstasy) Negative U Benzodiazepines Scrn Negative Urine Cocaine Screen Negative U Marijuana (THC) Screen Negative Assessment & Plan Assessment & Plan narrative: # failure to thrive -patient weak, malnourished and unmotivated to get better. cannot care for him and he needs SNF placement. -ED OCCUPATIONAL HEALTH NURSING DIRECTOR arranged dc to [facility] but needs auth first which will take 2-3 days -dietary, PT and OT consults # alcohol use with dependence -drinks 3 glasses daily of 2 fingers of whiskey, apparently quit recently -CIWA -MV, thiamine and folate # severe hypomagnesemia -Mag of 1 in ED, s/p 4g IV -daily mag checks # GERD -continue PPI Code status is DNR. DVT prophylaxis with lovenox Proxy is Margarita. Case discussed with ED physician/APC and patient will be admitted to the hospitalist service for further workup and management. This patient will be admitted as obs and will require less than 2 midnights of hospital time to treat failure to thrive. Dispo: Pending SNF placement. Will take 1-3 days to get auth.
--- NOTE | 2023-08-22 18:53 | PC.NURSE ---
rpt called to car
[2023-08-22 20:31] LABS: Magnesium 1.5 mg/dL (1.6-2.3)
[2023-08-22] MEDS: MAGNESIUM SULFATE 4 GM/100 ML PIGGYBACK IV (20:41)
[2023-08-22] MEDS: levETIRAcetam 250 MG TABLET 500 MG PO (20:42)
[2023-08-23] VITALS: BP 148/78; PULSE 88; RESP 17; TEMP 37.2; O2SAT 93
[2023-08-23 04:00] VITALS: BP 126/68; PULSE 72; RESP 17; TEMP 36.7; O2SAT 96
[2023-08-23 05:34] LABS: Add Manual Diff / Slide Review NO; Basophils Absolute Auto 0 /uL (0-100); Basophils Percent Auto 0.3 % (0-2); Eosinophils Absolute Auto 100 /uL (0-450); Eosinophils Percent Auto 0.6 % (2-4); Hematocrit 37.6 % (41-53); Hemoglobin 13.1 g/dL (13.5-17.5); Lymphocytes Absolute Auto 1100 /uL (1100-4500); Mean Corpuscular HGB Conc 34.8 % (30-36); Mean Corpuscular Hemoglobin 33.8 PG (26-34); Mean Corpuscular Volume 97.1 fL (80-100); Monocytes Absolute Auto 1000 /uL (0-900); Monocytes Percent Auto 10.3 % (3-14); Neutrophils Absolute Auto 7500 /uL (1500-7000); Neutrophils Percent Auto 77.8 % (50-75); Platelet Count 198 X10^3/uL (150-400); Red Blood Cell Count 3.88 X10^6/uL (4.5-5.9); Red Cell Distribution Width 14.8 % (11.6-14.8); White Blood Cell Count 9.6 X10^3/uL (4.5-11.0)
[2023-08-23 05:41] LABS: BUN Creatinine Ratio 20.4 (6-22); Blood Urea Nitrogen 20 mg/dL (9-20); Calcium 9.2 mg/dL (8.4-10.2); Carbon Dioxide 31 mmol/L (22-32); Chloride 96 mmol/L (98-107); Estimated Glomerular Filt Rate > 60 mL/min (>60); Glucose 102 mg/dL (80-110); HEMOLYSIS < 15 (0-50); Magnesium 2.3 mg/dL (1.6-2.3); Potassium 3.6 mmol/L (3.4-5.1); Sodium 135 mmol/L (137-145)
[2023-08-23] MEDS: MIDODRINE HCL 5 MG TABLET 2.5 MG PO ×3 (06:35→17:05)
--- NOTE | 2023-08-23 07:12 | P.PN_ITS ---
Subjective Subjective Interval history: 83 yo male w/remote ICH, daily alcohol use, hx of alcohol induced pancreatitis, HLD, GERD who was admitted d/t increasing weakness, falls, hypomagnesemia and hypokalemia. Patient reports he slept better last night than he has in weeks. He states he is feeling pretty good today. No complaints. He notes he does have lots of falls at home. He is enjoying his breakfast. Exam Vital Signs (past 8 hours): - 08/22/23 14:05 08/22/23 14:10 08/22/23 14:12 Temperature 98.3 F Pulse Rate 107 H 111 H Respiratory Rate 22 Blood Pressure 137/86 137/86 Pulse Oximetry 95 Oxygen Delivery Method Room Air 08/22/23 14:12 08/22/23 14:30 08/22/23 14:36 Temperature Pulse Rate 107 H 101 H Respiratory Rate 22 24 Blood Pressure 158/83 H Pulse Oximetry 96 95 Oxygen Delivery Method 08/22/23 14:36 08/22/23 15:00 08/22/23 15:01 Temperature Pulse Rate 103 H 98 H 97 H Respiratory Rate 22 24 22 Blood Pressure Pulse Oximetry 96 96 96 Oxygen Delivery Method 08/22/23 15:01 08/22/23 15:30 08/22/23 16:00 Temperature Pulse Rate 92 H 96 H Respiratory Rate 22 24 Blood Pressure 155/74 H Pulse Oximetry 98 95 Oxygen Delivery Method 08/22/23 16:00 08/22/23 16:30 08/22/23 16:31 Temperature Pulse Rate 100 H Respiratory Rate 22 Blood Pressure 139/74 133/73 Pulse Oximetry 95 Oxygen Delivery Method 08/22/23 16:31 08/22/23 17:00 08/22/23 17:00 Temperature Pulse Rate 100 H 104 H Respiratory Rate 24 22 Blood Pressure 136/71 Pulse Oximetry 95 97 Oxygen Delivery Method 08/22/23 17:30 08/22/23 17:31 08/22/23 17:31 Temperature Pulse Rate 98 H 98 H Respiratory Rate 22 22 Blood Pressure 167/79 H Pulse Oximetry 93 95 Oxygen Delivery Method 08/22/23 18:00 08/22/23 18:00 08/22/23 18:30 Temperature Pulse Rate 102 H Respiratory Rate 22 Blood Pressure 152/71 H 159/70 H Pulse Oximetry 94 Oxygen Delivery Method 08/22/23 18:30 Temperature Pulse Rate 96 H Respiratory Rate 24 Blood Pressure Pulse Oximetry 96 Oxygen Delivery Method Oxygen Delivery Method Room Air Narrative Exam Narrative: GEN: Elderly male, very pleasant, Alert and oriented x 3, NAD HEENT:NC, Face symmetric CHEST: Respiratory excursions symmetric, CTAB CV: RRR, no M/R/G ABD: Soft, NT/ND, BT present in all 4 quadrants, no organomegaly or masses EXTR: warm, well perfused, no C/C/E SKIN: warm and dry, no rash, left index finger tip shows significant purple bruising, left middle finger with bruising and blisters to the DIP area. NEURO: Alert and oriented x 3, nonfocal Objective Labs 08/23/23 04:50 08/23/23 04:50 Labs: Laboratory Results - last 24 hr 08/22/23 08/22/23 14:23 17:05 WBC 9.1 RBC 4.13 L Hgb 13.9 Hct 40.2 L MCV 97.2 MCH 33.5 MCHC 34.5 RDW 14.6 Plt Count 225 Neut % (Auto) 79.8 H Lymph % (Auto) 8.9 L [place] % (Auto) 10.8 Eos % (Auto) 0.1 L Baso % (Auto) 0.4 Neut # (Auto) 7300 H Lymph # (Auto) 800 L [place] # (Auto) 1000 H Eos # (Auto) 0 Baso # (Auto) 0 Sodium 136 L Potassium 3.3 L Chloride 95 L Carbon Dioxide 33 H BUN 20 Creatinine 1.00 Estimated GFR > 60 BUN/Creatinine Ratio 20.0 Glucose 145 H Calcium 9.6 Total Bilirubin 1.1 AST 34 ALT 25 Alkaline Phosphatase 54 Ammonia < 9 L Total Protein 7.4 Albumin 3.9 Globulin 3.5 Albumin/Globulin Ratio 1.1 Urine Color Yellow Urine Appearance Clear Urine pH 8.0 Ur Specific [place] 1.020 Urine Protein 1+ H Urine Glucose (UA) Trace H Urine Ketones Negative Urine Occult Blood Negative Urine Nitrate Negative Urine Bilirubin 1+ H Ur Bilirubin Confirm Cancelled Urine Urobilinogen 2.0 H Ur Leukocyte Esterase Negative Urine RBC 0-1/hpf Urine WBC 0-1/hpf Ur Squamous Epith Cells 0-1 /hpf Ur Transition Epith Cell 0-1/hpf Ur Renal Epithelial Cell 0-1/hpf Urine Bacteria None seen Ur Culture Indicated? Cult not indicated U Opiates 300ng/mL cut Negative Ur Oxycodone Screen Negative Urine Methadone Screen Negative Ur Barbiturates Screen Negative U Tricyclic Antidepress Negative Ur Phencyclidine Scrn Negative Ur Amphetamines Screen Negative U Methamphetamines Scrn Negative Ur MDMA Scrn (Ecstasy) Negative U Benzodiazepines Scrn Negative Urine Cocaine Screen Negative U Marijuana (THC) Screen Negative PFSH Medical History Hypotension Protein calorie malnutrition History of prostate cancer Seizure Thrombocytopenia Macrocytosis Alcoholic pancreatitis GERD (gastroesophageal reflux disease) Combined hyperlipidemia Falls frequently Intraparenchymal hemorrhage of brain Essential tremor Fatty liver Concussion Right fibular fracture Surgical History Status post radical cystoprostatectomy Status post colonoscopy S/P total hip arthroplasty Family History Father Prostate cancer Kidney problem Mother Old age Social History household members: spouse Smoking Status: Former smoker Tobacco: How many years used: 50 second hand exposure: No alcohol intake: current substance use type: does not use Assessment & Plan Assessment & Plan narrative: 1. Generalized weakness Patient is awaiting PT assessment. Given his frequent falls and poor overall condition. Anticipate [facility] facility for rehab will be needed. 2. Alcohol dependence No current evidence for withdrawal. Continue CIWA protocol. 3. Hypomagnesemia Magnesium level improved at 2.3 today. Repeat in the morning as he may need ongoing replacement to replete his total body stores. 4. Hypokalemia Improved today with repletion. Code DNR Prophy On Lovenox. Dispo [facility] when auth received. Quality VTE Deep Vein Thrombosis/Pulmonary Embolism Present on Admission: No
[2023-08-23] MEDS: PANTOPRAZOLE DR 20 MG TABLET PO (09:58)
[2023-08-23] MEDS: MULTIVITAMIN 1 TABLET 1 TAB PO (09:58)
[2023-08-23] MEDS: levETIRAcetam 250 MG TABLET 500 MG PO ×2 (09:58→20:57)
[2023-08-23] MEDS: FLUDROCORTISONE 0.1 MG TABLET 0.2 MG PO (09:59)
[2023-08-23] MEDS: THIAMINE 100 MG TABLET PO (09:59)
[2023-08-23] MEDS: FOLIC ACID 1 MG TABLET PO (09:59)
[2023-08-23 10:00] VITALS: BP 99/66; PULSE 85; RESP 16; TEMP 37; O2SAT 95
[2023-08-23] MEDS: ENOXAPARIN 40 MG/0.4 ML SYRINGE SUBCUT (10:00)
--- NOTE | 2023-08-23 10:25 | PT.IIE ---
Surgical History (Last Reviewed 08/22/23 @ 18:31 by Jono Newsome DO) S/P total hip arthroplasty Status post colonoscopy Status post radical cystoprostatectomy Medical History (Last Reviewed 08/22/23 @ 18:31 by Jono Newsome DO) Alcoholic pancreatitis Combined hyperlipidemia Concussion Essential tremor Falls frequently Fatty liver GERD (gastroesophageal reflux disease) History of prostate cancer Hypotension Intraparenchymal hemorrhage of brain Macrocytosis Protein calorie malnutrition Right fibular fracture Seizure Thrombocytopenia Physical Therapy Inpatient Evaluation/Re-Eval M1 PT/OT-IP Prior Functional Status Start: 08/23/23 13:38 Freq: NEEDED Status: Active Protocol: Document 08/23/23 10:25 AB (Rec: 08/23/23 13:51 AB [email or web address]) Medical Review Prior Functional Status Medical History Reviewed Yes Communication able to make needs known Mobility and Gait pt stated that he was modified independent with all mobilities and ambulation using FWW but with h/o falls. Social History Household Members spouse Living Arrangements House Number of Floors (Floors) One Floor Number of Stairs To Enter/Railing? 2 steps to enter without rails / has L sided wall Home Environment Standard Height Toilet,Walk in Shower Home Equipment Front Wheel Walker,Straight Cane M2 PT-IP Current Condition Start: 08/23/23 13:38 Freq: NEEDED Status: Active Protocol: Document 08/23/23 10:25 AB (Rec: 08/23/23 13:51 AB [id number]) Physical Therapy Current Condition Current Condition Evaluation Date 08/23/23 Treatment Diagnosis alcohol dependence; weakness; difficulty in walking Onset Date 08/22/23 M3 PT-IP Subjective Start: 08/23/23 13:38 Freq: NEEDED Status: Active Protocol: Document 08/23/23 10:25 AB (Rec: 08/23/23 13:51 AB [email or web address]) Subjective Physical Therapy Visit Type Type Initial Evaluation Visit Start Time 10:25 Visit Stop Time 10:54 Total Visit Minutes 29 Number of SHEET METAL SUPERVISOR Visits 0 Physical Therapy Visit Comments Patient Comments agreeable to do PT M4 PT-IP Mobility and Gait Start: 08/23/23 13:38 Freq: NEEDED Status: Active Protocol: Document 08/23/23 10:25 AB (Rec: 08/23/23 13:51 AB [id number]) PT-Bed Mobility Assessment Supine to Sit Supine to Sit Maximum Assistance,1 Person Assistance,Head of Bed Elevated,Bedrails Sit to Supine Sit to Supine Maximum Assistance,1 Person Assistance,Bedrails PT-Transfer Assessment Comments Mobility Comments pt supine in bed and agreeable to do PT. obtained PLOF and home set up. pt with h/o falls but pt does not remember how he fell. BP in supine: 104/50. pt completed supine to sit max A and max cues. pt required max A for sitting balance with increase lateral LOB to the R and increase posterior trunk lean and cued to correct and keep trunk forward and midline . BP in sittin/43. pt sat for ~ 2 more minutes and BP checked again: 77/46. assisted pt back to supine requiring max A and max cues. positioned pt in bed. BP checked in supine: 114/66. call light and table placed within reach. informed nurse regarding decrease BP. PT-Balance Assessment Sitting Balance and Reactions Static Sitting Balance Ability Poor Dynamic Sitting Balance Ability Poor M5 PT-IP Objective Assessments Start: 08/23/23 13:38 Freq: NEEDED Status: Active Protocol: Document 08/23/23 10:25 AB (Rec: 08/23/23 13:51 AB [email or web address]) Orientation Orientation/Cognition Level of Alertness Confusional State Orientation Name,Place Safety Awareness Decreased Safety Awareness Memory Description Short Term Impaired Gross Range of Motion Lower Extremity ROM Assessment Within Functional Limits Strength Lower Extremity Strength Assessment Bilaterally Impaired Comments Strength Comments LLE: 4-/5 RLE 3+/5 Muscle Tone Muscle Tone WNL Yes M6 PT-IP Treatment Start: 08/23/23 13:38 Freq: NEEDED Status: Active Protocol: Document 08/23/23 10:25 AB (Rec: 08/23/23 13:51 AB [email or web address]) Physical Therapy Treatment Education Education Provided Safety M7 PT-IP Assessment and Plan Start: 08/23/23 13:38 Freq: NEEDED Status: Active Protocol: Document 08/23/23 10:25 AB (Rec: 08/23/23 13:51 AB [email or web address]) PT Summary Assessment and Plan Potential Rehabilitation Potential Fair Status of Condition at Evaluation Evolving Summary Impairments Pain,ROM,Strength,Balance, Coordination,Sensation,Tone, Cognition,Bed Mobility, Transfers,Gait,Activity Tolerance Assessment Summary pt is an 83 y/o M who presented to the ED s/p fall. pt with h/o frequent falls at home. pt admitted for alcohold dependence and weakness. pt requiring max A for bed mobility and has poor sitting balance. pt unable to stand and transfer today and presents with hypotension to 77/46 in sitting from 104/50 in supine. pt will require SNF rehab to improve strength and mobility independence. Goals Bed Mobility Goal Minimal Assistance Transfer Goal Minimal Assistance,Front Wheeled Walker Gait Goal Minimal Assistance,Front Wheel Walker Gait Distance 25 Other Goals improve bed mobility, transfers, ambulation using FWW ~ 150 ft SBA up/down 2 steps WEAPONS OFFICER/L wall/SPC CGA Days to Meet Goals 10 Frequency of Treatment Frequency Of Treatment Once a Day Treatment Plan Physical Therapy Treatment Plan Bed Mobility Training,Transfer Training,Gait Training, Therapeutic Exercise,Balance Retraining,Discharge Planning, Hot or Cold Pack,Neuromuscular Re-ed,Coordination Retraining Precautions Other Precautions falls; BP Recommendations To Nursing Amount of Assist Needed Mechanical Lift Discharge Recommendations PT Discharge Recommendations SNF Rehab Transportation Needs at Discharge Wheelchair/Cabulance,Stretcher /Ambulance
--- NOTE | 2023-08-23 14:51 | CM.DPC ---
DCP SNF Planning: Per MD, pt to work with PT today and will need SNF at d/c. Per PT, recommending SNF and pt was limited in his ability to participate much due to his orthostatics. REGIS faxed PT eval note to [facility] to include in the submitted [facility] MCR auth request. SW spoke to Hayden covering [facility] for the weekend and she confirms that she does not anticipate a determination from [facility] until Friday but will continue to follow. SW met bedside with pt and spouse and explained role and they confirm they remain agreeable to SNF at [facility] and SW reminded them that awaiting insurance approval and not a guarantee that they will approve and spouse confirms she would pay privately if needed and aware of the cost. SW inquired if pt and spouse have discussed their Concrete [employer] Dispatcher plan and Goals regarding remaining in their home vs Assisted Living type facility. Spouse states well we have briefly talked about it but sort of skirted the issue, as we you know always think we will always get better. SW strongly encouraged pt and spouse to begin earnestly having this discussion to determine what their LTC plans are. SW discussed the benefit to calling some of the resources provided ([facility] agencies and [facility]) to get a sense of cost and services provided etc now before the need is dire. Pt confused and not really tracking the conversation but pleasant and spouse seemed to consider the information discussed by REGIS but did not appear currently motivated to follow through. PASRR previously completed by JENN DIGGS and already sent to [facility]. Pt is currently open with [facility] as well. Plan: SW to follow closely for [facility] review towards SNF auth determination for plan of d/c to [facility] under insurance or private pay if insurance denies. Pt currently open with [facility]. DONTAE Couch
[2023-08-23 19:00] VITALS: BP 126/68; PULSE 69; RESP 16; TEMP 36.9; O2SAT 95
[2023-08-24] MEDS: MIDODRINE HCL 5 MG TABLET 2.5 MG PO ×3 (06:40→18:24)
[2023-08-24 07:37] LABS: Add Manual Diff / Slide Review NO; Basophils Absolute Auto 100 /uL (0-100); Basophils Percent Auto 0.8 % (0-2); Eosinophils Absolute Auto 200 /uL (0-450); Eosinophils Percent Auto 3.5 % (2-4); Hematocrit 36.1 % (41-53); Hemoglobin 12.6 g/dL (13.5-17.5); Lymphocytes Absolute Auto 900 /uL (1100-4500); Lymphocytes Percent Auto 13.9 % (25-40); Mean Corpuscular HGB Conc 34.9 % (30-36); Mean Corpuscular Hemoglobin 33.7 PG (26-34); Mean Corpuscular Volume 96.8 fL (80-100); Monocytes Absolute Auto 800 /uL (0-900); Monocytes Percent Auto 12.5 % (3-14); Neutrophils Absolute Auto 4600 /uL (1500-7000); Neutrophils Percent Auto 69.3 % (50-75); Platelet Count 192 X10^3/uL (150-400); Red Blood Cell Count 3.73 X10^6/uL (4.5-5.9); Red Cell Distribution Width 14.7 % (11.6-14.8); White Blood Cell Count 6.6 X10^3/uL (4.5-11.0)
[2023-08-24 07:46] VITALS: BP 125/82; PULSE 75; RESP 16; TEMP 36.6; O2SAT 93
[2023-08-24 07:50] LABS: BUN Creatinine Ratio 27.3 (6-22); Blood Urea Nitrogen 24 mg/dL (9-20); Calcium 9.2 mg/dL (8.4-10.2); Carbon Dioxide 33 mmol/L (22-32); Chloride 99 mmol/L (98-107); Estimated Glomerular Filt Rate > 60 mL/min (>60); Glucose 96 mg/dL (80-110); HEMOLYSIS < 15 (0-50); Potassium 2.9 mmol/L (3.4-5.1); Sodium 136 mmol/L (137-145)
[2023-08-24 07:53] LABS: Magnesium 1.8 mg/dL (1.6-2.3)
[2023-08-24] MEDS: FLUDROCORTISONE 0.1 MG TABLET 0.2 MG PO (08:46)
[2023-08-24] MEDS: ENOXAPARIN 40 MG/0.4 ML SYRINGE SUBCUT (08:46)
[2023-08-24] MEDS: levETIRAcetam 250 MG TABLET 500 MG PO ×2 (08:47→21:44)
[2023-08-24] MEDS: THIAMINE 100 MG TABLET PO (08:47)
[2023-08-24] MEDS: FOLIC ACID 1 MG TABLET PO (08:47)
[2023-08-24] MEDS: POTASSIUM CHLORIDE 20 MEQ TAB 40 MEQ PO ×2 (08:47→12:39)
[2023-08-24] MEDS: MULTIVITAMIN 1 TABLET 1 TAB PO (08:47)
[2023-08-24] MEDS: PANTOPRAZOLE DR 20 MG TABLET PO (08:52)
--- NOTE | 2023-08-24 11:34 | PT.IPTN ---
Physical Therapy Treatment Note M2 PT-IP Current Condition Start: 08/23/23 13:38 Freq: NEEDED Status: Active Protocol: Document 08/23/23 10:25 AB (Rec: 08/23/23 13:51 AB [email or web address]) Physical Therapy Current Condition Current Condition Evaluation Date 08/23/23 Treatment Diagnosis alcohol dependence; weakness; difficulty in walking Onset Date 08/22/23 M3 PT-IP Subjective Start: 08/23/23 13:38 Freq: NEEDED Status: Active Protocol: Document 08/24/23 11:16 KS (Rec: 08/24/23 13:10 KS [id number]) Subjective Physical Therapy Visit Type Type Treatment Note Visit Start Time 11:16 Visit Stop Time 11:34 Total Visit Minutes 18 Number of ANIMAL EVISCERATOR Visits 1 Physical Therapy Visit Comments Patient Comments agreeable to do PT M4 PT-IP Mobility and Gait Start: 08/23/23 13:38 Freq: NEEDED Status: Active Protocol: Document 08/24/23 11:16 KS (Rec: 08/24/23 13:10 KS [id number]) PT-Bed Mobility Assessment Supine to Sit Supine to Sit Moderate Assistance,1 Person Assistance,Head of Bed Elevated,Bedrails PT-Transfer Assessment Sit to and From Stand Sit to and from Stand Maximum Assistance,1 Person Assistance,Use of Upper Extremities Equipment Transfer Assistive Device Gait Belt,Front Wheeled Walker Transfers Transfer Destination Chair Transfer Technique Stand Step Pivot Transfer Ability Level of Assist Maximum Assistance,1 Person Assistance,Use of Upper Extremities Comments Mobility Comments Pt in bed upon arrival, agreeable to transfer to chair . Mod A for sup<>sit w/ HOB elevated, Max A and two attempts for sit<>Stand w/ FWW . In standing, pt had difficultly WB on RLE to elevate and advance LLE, but was able to minimally using FWW and Max A and able to transfer to chair. Pt reports fatigue following transfer, denied dizziness or lightheadedness - BP 92/54. Left in room w/ RN. Gait Assessment Comments Gait Comments Max A stand step pivot only. PT-Balance Assessment Sitting Balance and Reactions Static Sitting Balance Ability Fair Dynamic Sitting Balance Ability Poor Standing Balance and Reactions Static Standing Balance Ability Poor Dynamic Standing Balance Ability Poor Device Used FWW M5 PT-IP Objective Assessments Start: 08/23/23 13:38 Freq: NEEDED Status: Active Protocol: Document 08/23/23 10:25 AB (Rec: 08/23/23 13:51 AB [id number]) Orientation Orientation/Cognition Level of Alertness Confusional State Orientation Name,Place Safety Awareness Decreased Safety Awareness Memory Description Short Term Impaired Gross Range of Motion Lower Extremity ROM Assessment Within Functional Limits Strength Lower Extremity Strength Assessment Bilaterally Impaired Comments Strength Comments LLE: 4-/5 RLE 3+/5 Muscle Tone Muscle Tone WNL Yes M6 PT-IP Treatment Start: 08/23/23 13:38 Freq: NEEDED Status: Active Protocol: Document 08/24/23 11:16 KS (Rec: 08/24/23 13:10 KS [id number]) Physical Therapy Treatment Education Education Provided Safety M7 PT-IP Assessment and Plan Start: 08/23/23 13:38 Freq: NEEDED Status: Active Protocol: Document 08/24/23 11:16 KS (Rec: 08/24/23 13:10 KS [id number]) PT Summary Assessment and Plan Potential Rehabilitation Potential Fair Summary Impairments Pain,ROM,Strength,Balance, Coordination,Sensation,Tone, Cognition,Bed Mobility, Transfers,Gait,Activity Tolerance Progress Towards Goals Slow Progress due to Pain,Slow Progress due to Medical Issues,Slow Progress due to Activity Tolerance Assessment Summary Pt requiring somewhat less assist for bed mobility today (Mod) and was able ti sand and complete SSP to chair w/ FWW and Max A. Very quick approach to fatigue and poor balance. Pt will require SNF to improve strength and functional mobility. Goals Bed Mobility Goal Minimal Assistance Transfer Goal Minimal Assistance,Front Wheeled Walker Gait Goal Minimal Assistance,Front Wheel Walker Gait Distance 25 Other Goals improve bed mobility, transfers, ambulation using FWW ~ 150 ft SBA up/down 2 steps [employer]IAL [employer] SR STRATEGY MANAGER/L wall/SPC CGA Days to Meet Goals 10 Frequency of Treatment Frequency Of Treatment Once a Day Treatment Plan Physical Therapy Treatment Plan Bed Mobility Training,Transfer Training,Gait Training, Therapeutic Exercise,Balance Retraining,Discharge Planning, Hot or Cold Pack,Neuromuscular Re-ed,Coordination Retraining Precautions Other Precautions falls; BP Recommendations To Nursing Amount of Assist Needed 2 Person Assist Discharge Recommendations PT Discharge Recommendations SNF Rehab Transportation Needs at Discharge Wheelchair/Cabulance
[2023-08-24 11:35] VITALS: BP 92/54
[2023-08-24] MEDS: BACITRACIN OINT 0.9 GM PCKT 1 APPLIC TOP (13:00)
--- NOTE | 2023-08-24 16:32 | PM.PN.1 ---
Subjective Subjective Interval history: Patient has no complaints other than a weeping spot on L index finger from blister after falling. Placed order to apply bacitracin and wrap it. Exam Vital Signs (past 8 hours): - 08/24/23 11:35 Blood Pressure 92/54 L Oxygen Delivery Method Room Air Oxygen Flow Rate 0 Narrative Exam Narrative: GEN: Elderly male, very pleasant, Alert and oriented x 3, NAD HEENT:NC, Face symmetric CHEST: Respiratory excursions symmetric, CTAB CV: RRR, no M/R/G ABD: Soft, NT/ND, BT present in all 4 quadrants, no organomegaly or masses EXTR: warm, well perfused, no C/C/E SKIN: warm and dry, no rash, left index finger tip shows significant purple bruising, left middle finger with bruising and blisters to the DIP area. NEURO: Alert and oriented x 3, nonfocal Objective Labs 08/24/23 06:30 08/24/23 06:30 Labs: Laboratory Results - last 24 hr 08/24/23 06:30 WBC 6.6 RBC 3.73 L Hgb 12.6 L Hct 36.1 L MCV 96.8 MCH 33.7 MCHC 34.9 RDW 14.7 Plt Count 192 Neut % (Auto) 69.3 Lymph % (Auto) 13.9 L [place] % (Auto) 12.5 Eos % (Auto) 3.5 Baso % (Auto) 0.8 Neut # (Auto) 4600 Lymph # (Auto) 900 L [place] # (Auto) 800 Eos # (Auto) 200 Baso # (Auto) 100 Sodium 136 L Potassium 2.9 L Chloride 99 Carbon Dioxide 33 H BUN 24 H Creatinine 0.88 Estimated GFR > 60 BUN/Creatinine Ratio 27.3 H Glucose 96 Calcium 9.2 Magnesium 1.8 PFSH Medical History Hypotension Protein calorie malnutrition History of prostate cancer Seizure Thrombocytopenia Macrocytosis Alcoholic pancreatitis GERD (gastroesophageal reflux disease) Combined hyperlipidemia Falls frequently Intraparenchymal hemorrhage of brain Essential tremor Fatty liver Concussion Right fibular fracture Surgical History Status post radical cystoprostatectomy Status post colonoscopy S/P total hip arthroplasty Family History Father Prostate cancer Kidney problem Mother Old age Social History household members: spouse Smoking Status: Former smoker Tobacco: How many years used: 50 second hand exposure: No alcohol intake: current substance use type: does not use Assessment & Plan Assessment & Plan narrative: 1. Generalized weakness Patient is awaiting PT assessment. Given his frequent falls and poor overall condition. Anticipate halfway facility for rehab will be needed. 2. Alcohol dependence No current evidence for withdrawal. Continue CIWA protocol. 3. Hypomagnesemia Magnesium level improved at 2.3. Repeat daily as he may need ongoing replacement to replete his total body stores. 4. Hypokalemia Improved with repletion. 5. L index finger blister Apply bacitracin and wrap with gauze. Code DNR Prophy On Lovenox. Dispo [facility] when auth received. Likely 08/25. Quality VTE Deep Vein Thrombosis/Pulmonary Embolism Present on Admission: No
--- NOTE | 2023-08-24 17:04 | CM.DPC ---
DCP Continued LAND MANAGER reviewed EMR. LAND MANAGER spoke with Hayden at [facility]. Auth pending, likely will here back Friday. Unable to meet with patient today due to triaging needs. Per previous CM note, spouse okay with [facility] if needed for [facility]. Plan: check in with [facility] Friday on auth status. If Private pay, confirm with spouse approval. CM team will follow closely. DONTAE Rdz
[2023-08-24 20:00] VITALS: BP 130/66; PULSE 74; RESP 16; TEMP 37; O2SAT 96
[2023-08-25 06:21] LABS: Add Manual Diff / Slide Review NO; Basophils Absolute Auto 0 /uL (0-100); Basophils Percent Auto 0.9 % (0-2); Eosinophils Absolute Auto 300 /uL (0-450); Eosinophils Percent Auto 6.6 % (2-4); Hematocrit 35.3 % (41-53); Hemoglobin 12.2 g/dL (13.5-17.5); Lymphocytes Absolute Auto 1000 /uL (1100-4500); Lymphocytes Percent Auto 19.9 % (25-40); Mean Corpuscular HGB Conc 34.5 % (30-36); Mean Corpuscular Hemoglobin 33.7 PG (26-34); Mean Corpuscular Volume 97.5 fL (80-100); Monocytes Absolute Auto 600 /uL (0-900); Monocytes Percent Auto 12.5 % (3-14); Neutrophils Absolute Auto 3000 /uL (1500-7000); Neutrophils Percent Auto 60.1 % (50-75); Platelet Count 194 X10^3/uL (150-400); Red Blood Cell Count 3.62 X10^6/uL (4.5-5.9); Red Cell Distribution Width 14.6 % (11.6-14.8)
[2023-08-25 06:32] LABS: BUN Creatinine Ratio 31.3 (6-22); Blood Urea Nitrogen 25 mg/dL (9-20); Calcium 9.4 mg/dL (8.4-10.2); Carbon Dioxide 30 mmol/L (22-32); Chloride 101 mmol/L (98-107); Estimated Glomerular Filt Rate > 60 mL/min (>60); Glucose 96 mg/dL (80-110); HEMOLYSIS < 15 (0-50); Magnesium 1.7 mg/dL (1.6-2.3); Potassium 3.7 mmol/L (3.4-5.1); Sodium 137 mmol/L (137-145)
[2023-08-25 06:56] VITALS: BP 126/68; PULSE 68
[2023-08-25] MEDS: FOLIC ACID 1 MG TABLET PO (09:17)
[2023-08-25] MEDS: POTASSIUM CHLORIDE 20 MEQ TAB 40 MEQ PO (09:17)
[2023-08-25] MEDS: levETIRAcetam 250 MG TABLET 500 MG PO (09:17)
[2023-08-25] MEDS: MULTIVITAMIN 1 TABLET 1 TAB PO (09:17)
[2023-08-25] MEDS: ENOXAPARIN 40 MG/0.4 ML SYRINGE SUBCUT (09:17)
[2023-08-25] MEDS: PANTOPRAZOLE DR 20 MG TABLET PO (09:17)
[2023-08-25] MEDS: MAGNESIUM SULFATE 2 GM/50 ML PIGGYBACK IV (09:18)
[2023-08-25] MEDS: FLUDROCORTISONE 0.1 MG TABLET 0.2 MG PO (09:24)
[2023-08-25] MEDS: THIAMINE 100 MG TABLET PO (09:24)
[2023-08-25 09:50] VITALS: BP 101/67; PULSE 85; RESP 16; TEMP 36.7; O2SAT 94
--- NOTE | 2023-08-25 11:09 | PT.IPTN ---
Physical Therapy Treatment Note M2 PT-IP Current Condition Start: 08/23/23 13:38 Freq: NEEDED Status: Active Protocol: Document 08/23/23 10:25 AB (Rec: 08/23/23 13:51 AB [id number]) Physical Therapy Current Condition Current Condition Evaluation Date 08/23/23 Treatment Diagnosis alcohol dependence; weakness; difficulty in walking Onset Date 08/22/23 M3 PT-IP Subjective Start: 08/23/23 13:38 Freq: NEEDED Status: Active Protocol: Document 08/25/23 11:33 ZF (Rec: 08/25/23 11:47 ZF [id number]) Subjective Physical Therapy Visit Type Type Treatment Note Visit Start Time 11:09 Visit Stop Time 11:29 Total Visit Minutes 20 Number of INSPECTOR BALANCE TRUING Visits 2 Physical Therapy Visit Comments Patient Comments Pt initially refuses therapy, upon second attempt pt is agreeable. M4 PT-IP Mobility and Gait Start: 08/23/23 13:38 Freq: NEEDED Status: Active Protocol: Document 08/25/23 11:33 ZF (Rec: 08/25/23 11:47 ZF [id number]) PT-Bed Mobility Assessment Supine to Sit Supine to Sit Moderate Assistance,1 Person Assistance,Head of Bed Elevated,Bedrails Sit to Supine Sit to Supine Minimal Assistance,1 Person Assistance,Bedrails Scooting Scooting to Edge of Bed Minimal Assistance Scooting Up and Down in Bed Moderate Assistance PT-Transfer Assessment Sit to and From Stand Sit to and from Stand Moderate Assistance,1 Person Assistance,Use of Upper Extremities Equipment Transfer Assistive Device Gait Belt,Front Wheeled Walker Comments Mobility Comments Pt in bed when approached for therapy, agreeable to therapy. BP in supine: 118/61mmHg. Supine>Sitting EOB requires ModA for pushing up from sidelying w/HOB raised into sitting. BP in sittin/ 62mmHg. STS from EOB x2 trials requires ModA. VC for proper handplacement. Pt tolerates x15 first trial, x2' mins second trial, requires CGA for safety. Attempted to get BP in standing, but unable to get reading until pt had sat back down after x2min stand: 95/ 40mmHg. Pt is symptomatic and reports that he needs to lie back down. Sit>Supine Janina. Pt requires Mod/MaxA for scooting up in bed. Pt left w/ call light in reach and all needs met. Gait Assessment Comments Gait Comments See mobility comments. PT-Balance Assessment Sitting Balance and Reactions Static Sitting Balance Ability Fair Dynamic Sitting Balance Ability Fair Standing Balance and Reactions Static Standing Balance Ability Poor Device Used FWW M5 PT-IP Objective Assessments Start: 08/23/23 13:38 Freq: NEEDED Status: Active Protocol: Document 08/23/23 10:25 AB (Rec: 08/23/23 13:51 AB [id number]) Orientation Orientation/Cognition Level of Alertness Confusional State Orientation Name,Place Safety Awareness Decreased Safety Awareness Memory Description Short Term Impaired Gross Range of Motion Lower Extremity ROM Assessment Within Functional Limits Strength Lower Extremity Strength Assessment Bilaterally Impaired Comments Strength Comments LLE: 4-/5 RLE 3+/5 Muscle Tone Muscle Tone WNL Yes M6 PT-IP Treatment Start: 08/23/23 13:38 Freq: NEEDED Status: Active Protocol: Document 08/25/23 11:33 ZF (Rec: 08/25/23 11:47 ZF [id number]) Physical Therapy Treatment Education Education Provided Safety M7 PT-IP Assessment and Plan Start: 08/23/23 13:38 Freq: NEEDED Status: Active Protocol: Document 08/25/23 11:33 ZF (Rec: 08/25/23 11:47 ZF [id number]) PT Summary Assessment and Plan Potential Rehabilitation Potential Fair Summary Impairments Pain,ROM,Strength,Balance, Coordination,Sensation,Tone, Cognition,Bed Mobility, Transfers,Gait,Activity Tolerance Progress Towards Goals Slow Progress due to Pain,Slow Progress due to Medical Issues,Slow Progress due to Activity Tolerance Assessment Summary Pt dems orthostatic hypotension, and fatigues quickly. Able to stand EOB x2 mins, but unable to transfer today. Recommending SNF discharge to improve functional strength and return to ind. Goals Bed Mobility Goal Minimal Assistance Transfer Goal Minimal Assistance,Front Wheeled Walker Gait Goal Minimal Assistance,Front Wheel Walker Gait Distance 25 Other Goals improve bed mobility, transfers, ambulation using FWW ~ 150 ft SBA up/down 2 steps BACK PAD INSPECTOR/L wall/SPC CGA Days to Meet Goals 10 Frequency of Treatment Frequency Of Treatment Once a Day Treatment Plan Physical Therapy Treatment Plan Bed Mobility Training,Transfer Training,Gait Training, Therapeutic Exercise,Balance Retraining,Discharge Planning, Hot or Cold Pack,Neuromuscular Re-ed,Coordination Retraining Precautions Other Precautions falls; BP Recommendations To Nursing Amount of Assist Needed 2 Person Assist Discharge Recommendations PT Discharge Recommendations SNF Rehab Transportation Needs at Discharge Wheelchair/Cabulance
--- NOTE | 2023-08-25 11:21 | P.DS_ITS ---
History of Present Illness History of Present Illness Chief complaint: Increased Weakness Narrative: Carlos Jansen is an 82yo M with PMH of remote ICH, daily alcohol use, alcoholic pancreatitis, HLD, fatty liver, GERD, and chronic thrombocytopenia who presents with failure to thrive. Patient has been falling at home per and she cannot keep caring for him. She brought him to the ED for placement. [facility] but it will take a few days for auth to complete. He is being admitted for PT/OT consults and SNF placement. Patient himself has no complaints. He denies CP, NV, SOB, withdrawals, abd pain or diarrhea. Discharge Providers Provider Date of admission: 08/22/23 19:51 Discharge Date: 08/25/23 Primary care physician: MELVINA Salguero Consults: 08/22/23 15:09 Consult to [facility] Stat Comment: 08/22/23 18:51 Consult to Occupational Therapy Evaluate & Treat Comment: Physician Instructions: Evaluate and treat Consult to Physical Therapy Evaluate & Treat Comment: Physician Instructions: Evaluate and Treat 08/22/23 18:52 Consult to Dietitian, Adult Routine Comment: Reason For Exam: failure to thrive [facility], awaiting auth for [facility] Discharge provider: Jono Newsome DO Summary Hospital Course Discharge Diagnosis: 1. Generalized weakness PT rec SNF. Given his frequent falls and poor overall condition. [facility] accepts. 2. Alcohol dependence No current evidence for withdrawal. Continue CIWA protocol. No signs of withdrawal noted. 3. Hypomagnesemia Magnesium level improved at 2.3. Repeat daily as he may need ongoing replacement to replete his total body stores. Now in normal range. 4. Hypokalemia Improved with repletion. Started on daily 20meq po. 5. L index finger blister Apply bacitracin and wrap with gauze. Hospital Course: Admitted for worsening weakness and falls at home. SNF arranged and he was discharged to [facility]. Exam Vital Signs (past 8 hours): - 08/25/23 06:56 08/25/23 09:50 Temperature 98.0 F Pulse Rate 68 85 Respiratory Rate 16 Blood Pressure 126/68 101/67 Pulse Oximetry 94 Oxygen Flow Rate 0 Oxygen Delivery Method Room Air Oxygen Flow Rate 0 Narrative Exam Narrative: GEN: Elderly male, very pleasant, Alert and oriented x 3, NAD HEENT:NC, Face symmetric CHEST: Respiratory excursions symmetric, CTAB CV: RRR, no M/R/G ABD: Soft, NT/ND, BT present in all 4 quadrants, no organomegaly or masses EXTR: warm, well perfused, no C/C/E SKIN: warm and dry, no rash, left index finger tip shows significant purple bruising, left middle finger with bruising and blisters to the DIP area. NEURO: Alert and oriented x 3, nonfocal Objective Labs 08/25/23 05:35 08/25/23 05:35 Labs: Laboratory Results - last 24 hr 08/25/23 05:35 WBC 5.0 RBC 3.62 L Hgb 12.2 L Hct 35.3 L MCV 97.5 MCH 33.7 MCHC 34.5 RDW 14.6 Plt Count 194 Neut % (Auto) 60.1 Lymph % (Auto) 19.9 L [place] % (Auto) 12.5 Eos % (Auto) 6.6 H Baso % (Auto) 0.9 Neut # (Auto) 3000 Lymph # (Auto) 1000 L [place] # (Auto) 600 Eos # (Auto) 300 Baso # (Auto) 0 Sodium 137 Potassium 3.7 Chloride 101 Carbon Dioxide 30 BUN 25 H Creatinine 0.80 Estimated GFR > 60 BUN/Creatinine Ratio 31.3 H Glucose 96 Calcium 9.4 Magnesium 1.7 PFSH Medical History Hypotension Protein calorie malnutrition History of prostate cancer Seizure Thrombocytopenia Macrocytosis Alcoholic pancreatitis GERD (gastroesophageal reflux disease) Combined hyperlipidemia Falls frequently Intraparenchymal hemorrhage of brain Essential tremor Fatty liver Concussion Right fibular fracture Surgical History Status post radical cystoprostatectomy Status post colonoscopy S/P total hip arthroplasty Family History Father Prostate cancer Kidney problem Mother Old age Social History household members: spouse Smoking Status: Former smoker Tobacco: How many years used: 50 second hand exposure: No alcohol intake: current substance use type: does not use Discharge Plan Discharge Plan Patient Disposition: SNF Transfer to: [facility] I certify the postop hospital [facility] care is medically necessary on a continuing basis for any conditions for which he/ she received care during this hospitalization.: Yes The receiving facility has agreed to accept transfer and provide medical treatment.: Yes Discharge orders & Medications Prescriptions: New bacitracin 500 unit/gram Packet 1 applic topical DAILY Qty: 144 0RF Rx Instructions: apply to L index finger then wrap with guaze potassium chloride 20 mEq tablet extended release 20 meq PO DAILYCC Qty: 30 0RF Continued omeprazole 20 mg capsule,delayed release(DR/EC) 20 mg PO DAILY Qty: 90 3RF levetiracetam 500 mg tablet 500 mg PO BID Qty: 180 3RF midodrine 2.5 mg tablet 2.5 mg PO 0600,1200,1800 Qty: 270 3RF Rx Instructions: Take 1 tab 3x/day unless BP >120/80. Ensure Liquid 1 ea PO DAILY Qty: 5688 11RF Rx Instructions: Consume 1 can of Ensure type drink daily to twice daily fludrocortisone 0.1 mg tablet 0.2 mg PO DAILY Qty: 180 3RF (DME) Transport Chair See Rx Instructions .Route .MEDSUPPLY Qty: 1 0RF Rx Instructions: Transport Chair. Please fit patient with a chair that will fit his halls and doorways at home. Follow up/Referrals: Margarita Stoll ARNP [Primary Care Provider] - 2 Weeks Visit Report/Discharge Packet Stand Alone Forms: Patient Portal/API, Stroke Signs & Symptoms Discharge Data Primary Care Provider: Margarita Stoll Attending Provider: Jono Newsome Admit Date/Time: 08/22/23 19:51 Quality VTE Deep Vein Thrombosis/Pulmonary Embolism Present on Admission: No
--- NOTE | 2023-08-25 11:32 | CM.DPNOTE ---
DC Note According to update from Kristi at [facility], [facility] has approved a 3 day SNF . Spouse will need to pay privately for the remainder of time patient requires skilled rehab. Placed call to spouse Margarita to review plan. Reiterated that she will be required to pay privately after [facility]'s authorization expires 3 days from now. If spouse cannot pay this, she will need to take patient home. Margarita states understanding and confirms she is prepared to pay private payment at SNF. ANGEL Emanuel, assisting this AIR TUBE RELEASER w/coordination. Plan: Discharge to [facility] via w/c van p/u at 1330, [facility] paying x3 days then transition to private payment, patient and spouse aware and agreeable to plan. PASRR was done and sent to [facility] last week- Level I PASRR. PRATEEK
[2023-08-25] MEDS: MIDODRINE HCL 5 MG TABLET 2.5 MG PO (12:17)
--- NOTE | 2023-08-25 13:59 | PC.NURSE ---
Patient is A&OX4, VSS, afebrile on RA. He is able to participate with PT this a.m. and noted a slight drop in BP upon standing. He is able to tolerate about half of his meals today which is an improvement. He denies pain to fingers. Swollen finger open to air, and another finger with dressing C/D/I. He is medically cleared for discharge to [facility] this a.m. HIs is at bedside this morning,collecting his belongings, [employer] LAYOUT PERSON assists him to get dressed. Transporter arrived at 1330 to take patient via w/ch. Report called to Jake mata at [facility].He is escorted by facility designee with packet and all of his belongings via w/ch for discharge to [facility] at 1345 this afternoon.
--- NOTE | 2023-08-28 16:31 | PC.NURSE ---
Late Entry; magnesium infusion initiated 08/25 at 0918 complete at 1319.
== END 2023-08-25 13:45 ==
LOC: ED 18:54 → AC 19:52
PROVIDERS: Admitting Provider Student in an Organized Health Care Education/Training Program; Emergency Provider Emergency Medicine; PCP Nurse Practitioner; Referring Provider Emergency Medicine; Visit Provider Student in an Organized Health Care Education/Training Program
DX: R53.1 Weakness (principal); R62.7 Adult failure to thrive; Z91.81 History of falling; K21.9 Gastro-esophageal reflux disease without esophagitis; F10.20 Alcohol dependence, uncomplicated; E87.6 Hypokalemia; E83.42 Hypomagnesemia; S60.421A Blister (nonthermal) of left index finger, initial encounter; I95.1 Orthostatic hypotension
CPT/HCPCS: 36415; 70450; 71045; 80048; 80053; 80305; 81001; 82140; 83735; 85025; 93005; 93010; 96365; 96366; 96372; 97163; 97530; 99284; G0378; J1650; J3475

== ENCOUNTER → 2023-09-02 12:28 | Outpatient (CLI) | payer MEDICARE, SELFPAY ==
[2023-08-22 19:56] VITALS: BMI 26.8
--- NOTE | 2023-09-02 | DI.RAD.S_ITS ---
PROCEDURE: XR FOOT RT MIN 3V INDICATIONS: Pain in right ankle and joints of right foot TECHNIQUE: 3 views of the foot were acquired. COMPARISON: [facility], CR, XR FOOT RT MIN 3V, 08/20/2023, 11:53. FINDINGS: Bones: No fractures demonstrated. No periosteal reaction. No dislocations. Probable mild hallux valgus deformity. Mild degenerative changes. Small plantar calcaneal spur. No suspicious bony lesions. Soft tissues: No tibiotalar joint effusion. Achilles tendon appears normal. IMPRESSION: No fracture or dislocation. Dictated by: Garfield Harris M.D. on 09/02/2023 at 14:49 Approved by: Garfield Harris M.D. on 09/02/2023 at 14:51
--- NOTE | 2023-09-02 12:31 | DI.RAD.S_ITS ---
PROCEDURE: XR ANKLE RT MIN 3V INDICATIONS: Pain in right ankle and joints of right foot TECHNIQUE: 3 views of the ankle were acquired. COMPARISON: [facility], CR, XR FOOT RT MIN 3V, 09/02/2023, 12:39. [facility], CR, XR ANKLE RT MIN 3V, 01/24/2022, 13:11. FINDINGS: Bones: No fractures or dislocations. Healed distal fibula fracture. Ankle mortise is normally aligned. No suspicious bony lesions. Small plantar calcaneal spur. Soft tissues: No tibiotalar joint effusion. Achilles tendon appears normal. IMPRESSION: No acute bony abnormality. Dictated by: Garfield Harris M.D. on 09/02/2023 at 14:52 Approved by: Garfield Harris M.D. on 09/02/2023 at 14:53
== END ==
PROVIDERS: PCP Nurse Practitioner; Referring Provider Registered Nurse; Visit Provider Registered Nurse
DX: M77.31 Calcaneal spur, right foot (principal); M25.571 Pain in right ankle and joints of right foot
CPT/HCPCS: 73610; 73630

== ENCOUNTER 2023-09-23 12:45 | Inpatient (IN) | payer MEDICARE, SELFPAY ==
[2023-08-22 19:56] VITALS: BMI 26.8
[2023-09-23] VITALS (15 sets, daily range): BP systolic 127–182; BP diastolic 70–93; PULSE 63–100; RESP 16–26; TEMP 35.9–36.8; O2SAT 95–98; BMI 25.8
--- NOTE | 2023-09-23 12:58 | DI.RAD.S_ITS ---
PROCEDURE: XR CHEST 1V INDICATIONS: chest pain TECHNIQUE: One view of the chest was acquired. COMPARISON: [facility], CR, XR CHEST 1V, 08/22/2023, 14:54. FINDINGS: Surgical changes and devices: None. Lungs and pleura: Lungs are clear. No pleural effusions or pneumothorax. Mediastinum: Mediastinal contours appear normal. Heart size is normal. Bones and chest wall: No suspicious bony lesions. Overlying soft tissues appear unremarkable. IMPRESSION: No acute pulmonary process. Dictated by: Britney Boston M.D. on 09/23/2023 at 13:24 Approved by: Britney Boston M.D. on 09/23/2023 at 13:26
[2023-09-23 13:27] LABS: Add Manual Diff / Slide Review NO; Basophils Absolute Auto 0 /uL (0-100); Basophils Percent Auto 0.7 % (0-2); Eosinophils Absolute Auto 300 /uL (0-450); Eosinophils Percent Auto 6.9 % (2-4); Hematocrit 41.3 % (41-53); Hemoglobin 13.9 g/dL (13.5-17.5); Lymphocytes Absolute Auto 1200 /uL (1100-4500); Lymphocytes Percent Auto 29.8 % (25-40); Mean Corpuscular HGB Conc 33.6 % (30-36); Mean Corpuscular Hemoglobin 32.5 PG (26-34); Mean Corpuscular Volume 96.8 fL (80-100); Monocytes Absolute Auto 400 /uL (0-900); Monocytes Percent Auto 9.2 % (3-14); Neutrophils Absolute Auto 2200 /uL (1500-7000); Neutrophils Percent Auto 53.4 % (50-75); Platelet Count 164 X10^3/uL (150-400); Red Blood Cell Count 4.27 X10^6/uL (4.5-5.9); Red Cell Distribution Width 15.1 % (11.6-14.8); White Blood Cell Count 4.2 X10^3/uL (4.5-11.0)
[2023-09-23 13:46] LABS: Alanine Aminotransferase 29 IU/L (<50); Albumin 3.6 g/dL (3.5-5.0); Albumin Globulin Ratio 1.2 (1.0-2.8); Alkaline Phosphatase 53 U/L (38-126); Aspartate Aminotransferase 41 IU/L (17-59); Bilirubin Total 0.8 mg/dL (0.2-1.3); Blood Urea Nitrogen 12 mg/dL (9-20); Calcium 9.5 mg/dL (8.4-10.2); Carbon Dioxide 30 mmol/L (22-32); Chloride 103 mmol/L (98-107); Creatine Kinase 26 U/L (55-170); Estimated Glomerular Filt Rate > 60 mL/min (>60); Globulin 3.1 g/dL (1.7-4.1); Glucose 113 mg/dL (80-110); HEMOLYSIS < 15 (0-50); Lipase 60 U/L (23-300); Magnesium 1.2 mg/dL (1.6-2.3); Potassium 3.4 mmol/L (3.4-5.1); Sodium 140 mmol/L (137-145); Total Protein 6.7 g/dL (6.3-8.2)
[2023-09-23 13:50] LABS: INR 1.3 (0.9-1.3); Prothrombin Time 14.8 SECONDS (9.4-12.5)
[2023-09-23 13:51] LABS: PTT Partial Thromboplastin Tim 28 SECONDS (25.1-36.5)
[2023-09-23 13:57] LABS: Troponin I < 0.012 ng/mL (0.01-0.034)
--- NOTE | 2023-09-23 16:02 | ED_ITS ---
HPI - Syncope General Chief Complaint: Syncope Stated Complaint: syncope Time Seen by Provider: 09/23/23 15:23 Source: patient and EMS Mode of arrival: EMS History of Present Illness HPI narrative: This is an 83-year-old male with a history of alcohol abuse, chronic hypomagnesemia, and recurrent syncopal episodes. He arrives by ambulance today after a syncopal episode. Patient was at home, says he was getting into the shower when he suddenly passed. He recalls collapsing. He does not believe that he will hurt himself hit his head in the fall. His was present but did not witness the event, EMS was called, reportedly he vomited 1 time and reportedly he is initial blood pressure was 70 over palp. He has not had chest pain or shortness of breath. He was admitted to the hospital on August 22 after a syncopal episode and on the 25 of August he was discharged to [facility]. He was discharged from [facility] yesterday after rehab. He is taking fludrocortisone 0.1 mg 2 tablets daily and midodrine 2.5 mg t.i.d.. Reportedly is to hold if his blood pressures greater than 120 systolic. He also takes potassium supplement and he also takes Keppra, reportedly this event did not have a postictal phase and was quite brief was not associated with motor activity was not thought to be a seizure. I reviewed a cardiology consultation from May of 2022 when he was seen for syncope. Ambulatory heart monitor showed multiple episodes of atrial tachycardia none of which seem to be symptomatic. There was a recommendation for a loop recorder implanted if his symptoms progressed, it is not apparent that that is happened. When he started having problems with syncope, he was using alcohol, reportedly he has no longer using alcohol. His says that he passed out 1 time while at [facility], injured his left hand at that time. Related Data Previous Rx's Medication Instructions Recorded omeprazole 20 mg capsule,delayed 20 mg PO DAILY #90 caps 06/09/23 release levetiracetam 500 mg tablet 500 mg PO BID #180 tabs 07/28/23 midodrine 2.5 mg tablet 2.5 mg PO 0600,1200,1800 #270 tabs 07/28/23 fludrocortisone 0.1 mg tablet 0.2 mg (2 x 0.1 mg) PO DAILY #180 08/18/23 tabs food supplemt, lactose-reduced 1 ea PO DAILY #5,688 mL 08/18/23 (Ensure oral liquid) Transport Chair #1 ea 08/20/23 bacitracin 500 unit/gram topical 1 applic topical DAILY #144 ea 08/25/23 packet potassium chloride 20 mEq 20 meq PO DAILYCC #30 tabs 08/25/23 tablet,extended release Allergies Allergy/AdvReac Type Severity Reaction Status Date / Time No Known Allergies Allergy Verified 08/22/23 14:13 Patient History Medical History Hypotension Protein calorie malnutrition History of prostate cancer Seizure Thrombocytopenia Macrocytosis Alcoholic pancreatitis GERD (gastroesophageal reflux disease) Combined hyperlipidemia Falls frequently Intraparenchymal hemorrhage of brain Essential tremor Fatty liver Concussion Right fibular fracture Surgical History Status post radical cystoprostatectomy Status post colonoscopy S/P total hip arthroplasty Family History Father Prostate cancer Kidney problem Mother Old age Social History household members: spouse Smoking Status: Former smoker Tobacco: How many years used: 50 second hand exposure: No alcohol intake: current substance use type: does not use Smoking Status: Former smoker alcohol intake frequency: 3 or more drinks per day Substance Use Type: does not use Exam Initial Vital Signs Initial Vital Signs: Vital Signs Temperature 97 F L 09/23/23 12:50 Pulse Rate 78 09/23/23 12:50 Respiratory Rate 20 09/23/23 12:50 Blood Pressure 149/79 H 09/23/23 12:50 Pulse Oximetry 98 09/23/23 12:50 Oxygen Delivery Method Room Air 09/23/23 12:50 Const General: cooperative and No acute distress HENMT Head: normocephalic, atraumatic, No contusion, No hematoma, No laceration, No palpable skull fracture, No raccoon eyes, No scalp lesion and No scalp tenderness Eyes Pupils: PERRL EOM: EOM intact bilaterally Neck Neck: supple and other (Nontender) Resp Effort & Inspection: normal respiratory effort Auscultation: clear to auscultation bilaterally Cardio Other: Regular rhythm rate no murmur rub or gallop Back/Spine/Pelvis Back: No back tenderness Skin General: dry skin and warm Neuro General: patient alert, patient oriented x3 and no focal motor deficits Extrem Other: Index finger of the left hand is almost necrotic looking at the tip. There is a little bit of proximal erythema but not warm is some mild tenderness there. Is also a small area that looks necrotic on the pulp of the long finger of the left hand. These are reportedly associated [facility] [place] Orders Ordered: ED Orders 09/23/23 12:58 XR chest 1V Stat Complete Blood Count AUTO DIFF Stat EKG-12 Lead Stat 09/23/23 12:59 Comprehensive Metabolic Panel Stat ETOH [Ethanol (ETOH)] Stat Lipase Stat Magnesium Stat PTT Partial Thromboplastin Vincenzo Stat Prothrombin Time INR Stat Troponin & CK Cardiac Panel Stat 09/23/23 16:01 XR hand LT min 3V Stat Magnesium Sulfate (Magnesium Sulfate) 4 gm in 100 mls @ 25 mls/hr IV NOW ONE Stop: 09/23/23 19:33 Last Admin: 09/23/23 16:14 Dose: 25 mls/hr Documented By: LACEY Co-signed By: DESIREE Discontinued Medications Aspirin (Aspirin 81 Mg Chew Tab) 324 mg PO NOW ONE Stop: 09/23/23 12:59 Last Admin: 09/23/23 16:19 Dose: Not Given Documented By: LACEY Potassium Chloride (Potassium Chloride 20 Meq/15 Ml Udc) 20 meq PO NOW ONE Stop: 09/23/23 15:35 Last Admin: 09/23/23 16:27 Dose: 20 meq Documented By: LACEY Reevaluation(s) Reevaluation #1: Nursing staff performed orthostatic vital signs, they report a significant drop in systolic blood pressure from 180-120 with standing heart rate actually went up by about 20 points and the patient was asymptomatic. Consultations Consultation #1: Case is discussed with the hospitalist Dr. Newsome who accepts admission Consultation #2: D/W ortho Dr Portillo, will consult later, asks ESR and CRP to be added Vital Signs Vital signs: Vital Signs - 8 hr 09/23/23 12:50 09/23/23 15:01 09/23/23 16:24 Temperature 97 F L Pulse Rate 78 64 Pulse Rate [Orthostatic Lying] 76 Pulse Rate [Orthostatic Sitting] 76 Pulse Rate [Orthostatic Standing] 100 H Respiratory Rate 20 16 Blood Pressure 149/79 H 165/82 H Blood Pressure [Orthostatic Lying] 182/81 H Blood Pressure [Orthostatic Sitting] 154/70 H Blood Pressure [Orthostatic Standing] 127/74 Pulse Oximetry 98 96 Oxygen Delivery Method Room Air Room Air MDM - Syncope Medical Records Medical records narrative: Reviewed discharge summary from August of this year, reviewed cardiology consultation from May of 2022 Lab Data Lab results narrative: CBC with diff is unremarkable, magnesium is low, potassium is borderline, alcohol none detected 09/23/23 12:58 09/23/23 12:59 Labs: Lab Results 09/23/23 09/23/23 Range/Units 12:58 12:59 WBC 4.2 L (4.5-11.0) X10^3/uL RBC 4.27 L (4.5-5.9) X10^6/uL Hgb 13.9 (13.5-17.5) g/dL Hct 41.3 (41-53) % MCV 96.8 (80-100) fL MCH 32.5 (26-34) PG MCHC 33.6 (30-36) % RDW 15.1 H (11.6-14.8) % Plt Count 164 (150-400) X10^3/uL Neut % (Auto) 53.4 (50-75) % Lymph % (Auto) 29.8 (25-40) % Falls % (Auto) 9.2 (3-14) % Eos % (Auto) 6.9 H (2-4) % Baso % (Auto) 0.7 (0-2) % Neut # (Auto) 2200 (0314-3369) /uL Lymph # (Auto) 1200 (5966-6196) /uL Falls # (Auto) 400 (0-900) /uL Eos # (Auto) 300 (0-450) /uL Baso # (Auto) 0 (0-100) /uL PT 14.8 H (9.4-12.5) SECONDS INR 1.3 (0.9-1.3) APTT 28 (25.1-36.5) SECONDS Sodium 140 (137-145) mmol/L Potassium 3.4 (3.4-5.1) mmol/L Chloride 103 (98-107) mmol/L Carbon Dioxide 30 (22-32) mmol/L BUN 12 (9-20) mg/dL Creatinine 0.86 (0.66-1.25) mg/dL Estimated GFR > 60 (>60) mL/min BUN/Creatinine Ratio 14.0 (6-22) Glucose 113 H (80-110) mg/dL Calcium 9.5 (8.4-10.2) mg/dL Magnesium 1.2 L (1.6-2.3) mg/dL Total Bilirubin 0.8 (0.2-1.3) mg/dL AST 41 (17-59) IU/L ALT 29 (<50) IU/L Alkaline Phosphatase 53 (38-126) U/L Total Creatine Kinase 26 L (55-170) U/L Troponin I < 0.012 (0.01-0.034) ng/mL Total Protein 6.7 (6.3-8.2) g/dL Albumin 3.6 (3.5-5.0) g/dL Globulin 3.1 (1.7-4.1) g/dL Albumin/Globulin Ratio 1.2 (1.0-2.8) Lipase 60 (23-300) U/L Ethyl Alcohol < 10 ( - 10) mg/dL Imaging Data Extremity x-ray #1: My Impression: Left hand, possible tuft fracture of the index finger Radiologist's Impression: PROCEDURE: XR HAND LT MIN 3V INDICATIONS: hand injury TECHNIQUE: 3 views of the hand(s) acquired. COMPARISON: None. FINDINGS: Bones: Ill-defined lucency at the distal 2nd phalanx tuft not well seen on all views. Soft tissues: No suspicious soft tissue calcifications. Soft tissue laceration at the distal 2nd digit IMPRESSION: Distal 2nd digit soft tissue laceration with questionable nondisplaced lucency at the distal tuft not well seen on all views. Fracture cannot be excluded. Chest x-ray: My Impression: No acute disease on my initial review Radiologist's Impression: Radiologist reports no acute disease ECG Data Interpretation: EKG shows normal sinus rhythm at [address] segment changes intervals are normal MDM Narrative Medical decision making narrative: 83-year-old man with recurrent syncopal events in spite of being on midodrine and fludrocortisone. He was hypotensive initially after his syncopal episode and has persistent orthostatic changes on his vital signs here. Additionally, he has got a left index fingertip looks a bit necrotic and possibly has a tuft fracture. Orthopedics will evaluate this. He does not appear to be septic at present it does not my impression that this is infected at the moment. The patient will be admitted to the hospitalist service regarding his syncopal episodes. Discharge Plan Departure Patient Disposition: Admitted as Observation Clinical Impression: Hypomagnesemia Syncope Qualifiers: Syncope type: unspecified Qualified Code(s): R55 - Syncope and collapse Finger fracture, left Qualifiers: Encounter type: initial encounter Finger: index finger Fracture type: closed P halanx: distal Fracture alignment: nondisplaced Qualified Code(s): S62.661A - Nondisplaced fracture of distal phalanx of left index finger, initial encounter for closed fracture
[2023-09-23 16:08] LABS: Ethanol (ETOH) < 10 mg/dL
[2023-09-23] MEDS: MAGNESIUM SULFATE 4 GM/100 ML PIGGYBACK IV (16:14)
[2023-09-23] MEDS: POTASSIUM CHLORIDE 20 MEQ/15 ML UDC PO (16:27)
[2023-09-23 17:47] LABS: C-Reactive Protein Quant 0.5 mg/dL (<1.0)
[2023-09-23 18:34] LABS: Erythrocyte Sedimentation Rate 14 MM/HR (0-15)
--- NOTE | 2023-09-23 18:39 | PM.HP.1 ---
History of Present Illness History of Present Illness Date Patient Seen: 09/24/23 Chief complaint: syncope Narrative: Carlos Jansen is an 82yo M with PMH of orthostatic hypotension, remote ICH, previous alcohol use, alcoholic pancreatitis, HLD, fatty liver, GERD, and chronic thrombocytopenia who presents with syncope. Patient has a known history of syncope and orthostatic hypotension. He was just discharged from SNF yesterday back home. He was using the restroom at home and standing to urinate, then walked out of the bathroom and passed out. He doesn't remember what precipitated it. Denies any CP. In the ED patient had orthostasis with a 60 point systolic drop from 180 to 120 when standing. He notes his left index finger has been hurting and is black. Appears gangrenous and hurts with palpation. Ortho consulted in ED and will likely take for distal amputation. Patient denies headache, NV, fever/chills, vertigo, abd pain or diarrhea. PFSH Medical History Hypotension Protein calorie malnutrition History of prostate cancer Seizure Thrombocytopenia Macrocytosis Alcoholic pancreatitis GERD (gastroesophageal reflux disease) Combined hyperlipidemia Falls frequently Intraparenchymal hemorrhage of brain Essential tremor Fatty liver Concussion Right fibular fracture Surgical History Status post radical cystoprostatectomy Status post colonoscopy S/P total hip arthroplasty Family History Father Prostate cancer Kidney problem Mother Old age Social History household members: spouse Smoking Status: Former smoker Tobacco: How many years used: 50 second hand exposure: No alcohol intake: current substance use type: does not use Meds Home Medications and Allergies Home Medications Medication Instructions Recorded Confirmed Type omeprazole 20 mg capsule,delayed 20 mg PO DAILY #90 caps 06/09/23 09/23/23 Rx release levetiracetam 500 mg tablet 500 mg PO BID #180 tabs 07/28/23 09/23/23 Rx midodrine 2.5 mg tablet 2.5 mg PO 0600,1200,1800 #270 tabs 07/28/23 09/23/23 Rx fludrocortisone 0.1 mg tablet 0.2 mg (2 x 0.1 mg) PO DAILY #180 08/18/23 09/23/23 Rx tabs Transport Chair #1 ea 08/20/23 09/23/23 Rx bacitracin 500 unit/gram topical 1 applic topical DAILY #144 ea 08/25/23 09/23/23 Rx packet potassium chloride 20 mEq 20 meq PO DAILYCC #30 tabs 08/25/23 09/23/23 Rx tablet,extended release ondansetron HCl 4 mg tablet 4 mg PO Q6HR PRN Nausea And 09/23/23 09/23/23 History Vomiting Allergies Allergy/AdvReac Type Severity Reaction Status Date / Time No Known Allergies Allergy Verified 08/22/23 14:13 Review of Systems Review of Systems Narrative: All other systems reviewed with the patient and are negative unless otherwise stated. Exam Vital Signs (past 8 hours): - 09/23/23 12:50 09/23/23 15:01 09/23/23 16:14 Temperature 97 F L Pulse Rate 78 64 Pulse Rate [Orthostatic Lying] Pulse Rate [Orthostatic Sitting] Pulse Rate [Orthostatic Standing] Respiratory Rate 20 16 Blood Pressure 149/79 H 165/82 H 182/81 H Blood Pressure [Orthostatic Lying] Blood Pressure [Orthostatic Sitting] Blood Pressure [Orthostatic Standing] Pulse Oximetry 98 96 Oxygen Delivery Method Room Air Room Air 09/23/23 16:14 09/23/23 16:18 09/23/23 16:18 Temperature Pulse Rate 69 81 Pulse Rate [Orthostatic Lying] Pulse Rate [Orthostatic Sitting] Pulse Rate [Orthostatic Standing] Respiratory Rate 23 21 Blood Pressure 154/70 H Blood Pressure [Orthostatic Lying] Blood Pressure [Orthostatic Sitting] Blood Pressure [Orthostatic Standing] Pulse Oximetry 96 97 Oxygen Delivery Method 09/23/23 16:19 09/23/23 16:19 09/23/23 16:23 Temperature Pulse Rate 87 Pulse Rate [Orthostatic Lying] Pulse Rate [Orthostatic Sitting] Pulse Rate [Orthostatic Standing] Respiratory Rate 21 Blood Pressure 127/74 170/82 H Blood Pressure [Orthostatic Lying] Blood Pressure [Orthostatic Sitting] Blood Pressure [Orthostatic Standing] Pulse Oximetry 95 Oxygen Delivery Method 09/23/23 16:23 09/23/23 16:24 09/23/23 16:30 Temperature Pulse Rate 77 Pulse Rate [Orthostatic Lying] 76 Pulse Rate [Orthostatic Sitting] 76 Pulse Rate [Orthostatic Standing] 100 H Respiratory Rate 26 H Blood Pressure 171/93 H Blood Pressure [Orthostatic Lying] 182/81 H Blood Pressure [Orthostatic Sitting] 154/70 H Blood Pressure [Orthostatic Standing] 127/74 Pulse Oximetry 97 Oxygen Delivery Method 09/23/23 16:30 09/23/23 17:00 09/23/23 17:01 Temperature Pulse Rate 75 68 Pulse Rate [Orthostatic Lying] Pulse Rate [Orthostatic Sitting] Pulse Rate [Orthostatic Standing] Respiratory Rate 21 20 Blood Pressure 165/74 H Blood Pressure [Orthostatic Lying] Blood Pressure [Orthostatic Sitting] Blood Pressure [Orthostatic Standing] Pulse Oximetry 96 95 Oxygen Delivery Method 09/23/23 17:01 09/23/23 17:30 09/23/23 17:31 Temperature Pulse Rate 69 65 66 Pulse Rate [Orthostatic Lying] Pulse Rate [Orthostatic Sitting] Pulse Rate [Orthostatic Standing] Respiratory Rate 24 20 19 Blood Pressure Blood Pressure [Orthostatic Lying] Blood Pressure [Orthostatic Sitting] Blood Pressure [Orthostatic Standing] Pulse Oximetry 96 95 95 Oxygen Delivery Method Room Air 09/23/23 17:31 Temperature Pulse Rate Pulse Rate [Orthostatic Lying] Pulse Rate [Orthostatic Sitting] Pulse Rate [Orthostatic Standing] Respiratory Rate Blood Pressure 162/80 H Blood Pressure [Orthostatic Lying] Blood Pressure [Orthostatic Sitting] Blood Pressure [Orthostatic Standing] Pulse Oximetry Oxygen Delivery Method Oxygen Delivery Method Room Air Narrative Exam Narrative: GEN: Elderly male, very pleasant, Alert and oriented x 3, NAD HEENT:NC, Face symmetric CHEST: Respiratory excursions symmetric, CTAB CV: RRR, no M/R/G ABD: Soft, NT/ND, BT present in all 4 quadrants, no organomegaly or masses EXTR: warm, well perfused, no C/C/E SKIN: warm and dry, no rash, left index finger tip shows black eschar which appears gangrenous, some surrounding erythema and painful to palpation NEURO: Alert and oriented x 3, nonfocal Objective Labs 09/24/23 05:25 09/24/23 05:25 Labs: Laboratory Results - last 24 hr 09/23/23 09/23/23 12:58 12:59 WBC 4.2 L RBC 4.27 L Hgb 13.9 Hct 41.3 MCV 96.8 MCH 32.5 MCHC 33.6 RDW 15.1 H Plt Count 164 Neut % (Auto) 53.4 Lymph % (Auto) 29.8 Heard % (Auto) 9.2 Eos % (Auto) 6.9 H Baso % (Auto) 0.7 Neut # (Auto) 2200 Lymph # (Auto) 1200 Heard # (Auto) 400 Eos # (Auto) 300 Baso # (Auto) 0 ESR 14 PT 14.8 H INR 1.3 APTT 28 Sodium 140 Potassium 3.4 Chloride 103 Carbon Dioxide 30 BUN 12 Creatinine 0.86 Estimated GFR > 60 BUN/Creatinine Ratio 14.0 Glucose 113 H Calcium 9.5 Magnesium 1.2 L Total Bilirubin 0.8 AST 41 ALT 29 Alkaline Phosphatase 53 Total Creatine Kinase 26 L Troponin I < 0.012 C-Reactive Protein 0.5 Total Protein 6.7 Albumin 3.6 Globulin 3.1 Albumin/Globulin Ratio 1.2 Lipase 60 Ethyl Alcohol < 10 Assessment & Plan Assessment & Plan narrative: # recurrent syncope -patient has had multiple hospitalizations for syncope, was profoundly orthostatic in ED with 60 point systolic drop when standing -obtain CT head and EKG -qshift orthostatics -give 1L IVF bolus -continue 2.5 mg midodrine TID and fludrocortisone 0.2mg daily -last echo in Jun 2023 was reassuring with EF 60-65% -tele -PT/OT evals # possible seizure disorder -patient on prophylactic keppra for possible seizures -will continue keppra # previous subdural hematoma and lacunar infarct -seen on MRI brain in Jun 2023 -continue aspirin and statin # L index finger gangrene -ortho consulted and will perform distal amputation on 09/24 -NPO at midnight # hypomagnesemia -Mag of 1.2 in ED, s/p 4g IV -monitor and replete PRN # GERD -continue PPI Code status is DNR. DVT prophylaxis with Lovenox. Proxy is . I have reviewed home meds and used all available resources to reconcile the home meds. Case discussed with ED physician/APC and patient will be admitted to the hospitalist service for further workup and management. This patient will be admitted as inpatient and will require greater than 2 midnights of hospital time to treat syncope and gangrenous finger.
[2023-09-23] MEDS: SODIUM CHLORIDE 0.9% 1,000 ML 100 ML IV (21:45)
[2023-09-23] MEDS: levETIRAcetam 250 MG TABLET 500 MG PO (21:45)
[2023-09-24] VITALS (17 sets, daily range): BP systolic 81–163; BP diastolic 49–124; PULSE 55–95; RESP 12–22; TEMP 35.7–36.9; O2SAT 92–99; BMI 25.8
--- NOTE | 2023-09-24 03:23 | PC.NURSE ---
Patient is alert and oriented except did not know the month or day of month. Breath sounds CTA with RA sat of 98%. HRR w/telemetry reading of 1st degree AVB. BP trending high at 148/82 and 160/77. Orthostatic vitals show a drop in BP and a rise in HR with change of positions. Denied any lightheadedness or dizziness when up for orthostatics. Denied nausea. BT present and abdomen is soft. Is voiding per urinal and denied any dysuria. Is able to move himself in bed. Does report use of AD at home but gait not assessed at this time. Denied any pain. CIWA scores have been 0. Bilateral calf SCD's were applied at start of shift. Fall risk score is high and bed alarm is activated. See wound pictures for necrotic left index finger and blackened nails on 3 middle fingers of left hand. Fall risk score is high and bed alarm is activated.
[2023-09-24 05:49] LABS: Add Manual Diff / Slide Review NO; Basophils Absolute Auto 0 /uL (0-100); Basophils Percent Auto 0.9 % (0-2); Eosinophils Absolute Auto 300 /uL (0-450); Eosinophils Percent Auto 6.3 % (2-4); Hematocrit 37.9 % (41-53); Hemoglobin 12.9 g/dL (13.5-17.5); Lymphocytes Absolute Auto 1500 /uL (1100-4500); Lymphocytes Percent Auto 31.1 % (25-40); Mean Corpuscular HGB Conc 34.1 % (30-36); Mean Corpuscular Hemoglobin 32.8 PG (26-34); Mean Corpuscular Volume 95.9 fL (80-100); Monocytes Absolute Auto 500 /uL (0-900); Monocytes Percent Auto 11.4 % (3-14); Neutrophils Absolute Auto 2400 /uL (1500-7000); Neutrophils Percent Auto 50.3 % (50-75); Platelet Count 153 X10^3/uL (150-400); Red Blood Cell Count 3.95 X10^6/uL (4.5-5.9); White Blood Cell Count 4.8 X10^3/uL (4.5-11.0)
[2023-09-24 06:01] LABS: BUN Creatinine Ratio 15.3 (6-22); Blood Urea Nitrogen 9 mg/dL (9-20); Calcium 8.8 mg/dL (8.4-10.2); Carbon Dioxide 28 mmol/L (22-32); Chloride 105 mmol/L (98-107); Estimated Glomerular Filt Rate > 60 mL/min (>60); Glucose 87 mg/dL (80-110); HEMOLYSIS < 15 (0-50); Potassium 3.3 mmol/L (3.4-5.1); Sodium 139 mmol/L (137-145)
[2023-09-24 06:02] LABS: Magnesium 1.9 mg/dL (1.6-2.3)
[2023-09-24] MEDS: PANTOPRAZOLE DR 20 MG TABLET PO (06:16)
--- NOTE | 2023-09-24 07:46 | DI.CT.S_ITS ---
PROCEDURE: CT HEAD/BRAIN WO CON INDICATIONS: syncope TECHNIQUE: Noncontrast 4.5 mm thick angled axial sections acquired from the foramen magnum to the vertex, with coronal and sagittal reformats. For radiation dose reduction, the following was used: automated exposure control, adjustment of mA and/or kV according to patient size. COMPARISON: [facility], CT, CT HEAD/BRAIN WO CON, 08/20/2023, 10:29. [facility], CT, CT HEAD/BRAIN WO CON, 08/22/2023, 16:23. FINDINGS: Image quality: Diagnostic. CSF spaces: Basal cisterns are patent. No extra-axial fluid collections. The ventricles are symmetric in size and shape. Brain: Punctate echogenic foci are redemonstrated within the frontal lobe when compared with the study dated August 20, 2023 and the study dated 08/22/23. No new high-density foci to suggest acute or subacute hemorrhage. There is cerebral volume loss for age, with resultant ventricular and sulcal prominence. There are periventricular and deep white matter chronic small vessel ischemic changes. There is intracranial internal carotid artery atherosclerosis. Skull and face: Calvarium and visualized facial bones appear intact, without suspicious lesions. Sinuses: Visualized sinuses and mastoids are clear. IMPRESSION: 1. No acute intracranial findings. 2. Unchanged focal hyperdensities within the right frontal lobe when compared with the prior studies. Findings suggest calcification or hemosiderin. 3. Mild findings likely associated with chronic microvascular ischemic changes. Dictated by: Jo Montoya M.D. on 09/24/2023 at 8:32 Approved by: Jo Montoya M.D. on 09/24/2023 at 8:40
--- NOTE | 2023-09-24 08:13 | CM.DANOTE ---
Initial DCP Assessment Note Pt is an 83 yo male, resident [facility], has been at [facility] for approx one month. Presents after syncopal event at home, patient had been discharged from [facility] one day prior. Index finger found to be black and gangrene, patient will be taken to the OR for distal amputation. PCP: Margarita Stoll Payer: [facility] Reviewed chart, pt familiar to this [employer] SERV[employer] from his last visit to the ER and admission to the acute care floor,. At that time, patient discharged to [facility] with a few days paid by [facility] and spouse paying privately for the remainder of patient's stay at SNF. Anticipate patient will again need rehab. Will plan to discuss with spouse Margarita. Patient headed to the OR today for distal amputation, NPO overnight. CM team will plan to follow closely for coordination of discharge plan. DONTAE Denis Discharge Planning/Care Management CM Discharge Assessment Start: 09/24/23 08:10 Freq: Status: Active Protocol: Document 09/24/23 08:10 PRATEEK (Rec: 09/24/23 08:13 PRATEEK [id number]) Discharge Planning Assessment Assigned Intern [employer] DONTAE Ferrell DPOA/Assigned Designee Name Margarita Jansen, spouse Contact Information [phone] Advance Directives? Yes Advance Directives on File No History Provided By Medical Record Has Patient been admitted in last 30 Yes days? Comment 12.8-12.11.23 Prior Living Arrangements House Household Members spouse Type of transporation used prior to Relies on Others admit Facility Name Admitted From: [facility] Willing to Return to Facility? Will plan to discuss with spouse Independent with ADL's No Is patient alert and oriented? Yes Needs Assistance With Bathing,Grooming,Meal Prep, Toileting,Managing Medications ,Home Chores / Shopping Patient/Family Preference Residential Facility Comment Likely back to [facility] if family agrees and [facility] can secure additional auth from [facility] Discharge Plan Residential Facility Transportation Arrangement Likely wheelchair van
[2023-09-24] MEDS: levETIRAcetam 250 MG TABLET 500 MG PO ×2 (08:24→20:19)
[2023-09-24] MEDS: POTASSIUM CHLORIDE 20 MEQ TAB 40 MEQ PO (08:24)
[2023-09-24] MEDS: FLUDROCORTISONE 0.1 MG TABLET 0.2 MG PO (08:24)
[2023-09-24] MEDS: ASPIRIN EC 81 MG TABLET PO (08:24)
[2023-09-24] MEDS: SODIUM CHLORIDE 0.9% 1,000 ML 1000 ML IV (08:24)
--- NOTE | 2023-09-24 09:35 | PT.IIE ---
Current Diagnoses Syncope and collapse (09/23/23) Surgery Performed Operation Date: 09/24/23 17:15 <No data on this case meets the specified criteria> Surgical History (Last Reviewed 08/22/23 @ 18:31 by Jono Newsome DO) S/P total hip arthroplasty Status post colonoscopy Status post radical cystoprostatectomy Medical History (Last Reviewed 08/22/23 @ 18:31 by Jono Newsome DO) Alcoholic pancreatitis Combined hyperlipidemia Concussion Essential tremor Falls frequently Fatty liver GERD (gastroesophageal reflux disease) History of prostate cancer Hypotension Intraparenchymal hemorrhage of brain Macrocytosis Protein calorie malnutrition Right fibular fracture Seizure Thrombocytopenia Physical Therapy Inpatient Evaluation/Re-Eval M1 PT/OT-IP Prior Functional Status Start: 09/24/23 11:50 Freq: NEEDED Status: Active Protocol: Document 09/24/23 09:35 AB (Rec: 09/24/23 12:06 AB [id number]) Medical Review Prior Functional Status Medical History Reviewed Yes Communication able to make needs known Mobility and Gait pt stated that he was modified independent with all mobilities and ambulation using a FWW Social History Household Members spouse Living Arrangements House Number of Floors (Floors) One Floor Number of Stairs To Enter/Railing? 2 steps without rails to enter with L side wall Home Environment Standard Height Toilet,Walk in Shower Home Equipment Front Wheel Walker,Straight Cane,Grab Bars Near Toilet, Grab Bars In Shower M2 PT-IP Current Condition Start: 09/24/23 11:50 Freq: NEEDED Status: Active Protocol: Document 09/24/23 09:35 AB (Rec: 09/24/23 12:06 AB [id number]) Physical Therapy Current Condition Current Condition Evaluation Date 09/24/23 Treatment Diagnosis syncope; difficulty in walking Onset Date 09/23/22 M3 PT-IP Subjective Start: 09/24/23 11:50 Freq: NEEDED Status: Active Protocol: Document 09/24/23 09:35 AB (Rec: 09/24/23 12:06 AB [email or web address]) Subjective Physical Therapy Visit Type Type Initial Evaluation Visit Start Time 09:35 Visit Stop Time 09:55 Total Visit Minutes 20 Number of GAS ANALYST Visits 0 Physical Therapy Visit Comments Patient Comments agreeable to do PT Therapy Pain Assessment Pain Present Pain Present Denied Pain M4 PT-IP Mobility and Gait Start: 09/24/23 11:50 Freq: NEEDED Status: Active Protocol: Document 09/24/23 09:35 AB (Rec: 09/24/23 12:06 AB [id number]) PT-Bed Mobility Assessment Supine to Sit Supine to Sit Maximum Assistance PT-Transfer Assessment Sit to and From Stand Sit to and from Stand Minimal Assistance,1 Person Assistance,Use of Upper Extremities Equipment Transfer Assistive Device Gait Belt,Front Wheeled Walker Orthotic/Prosthetic Devices or Brace: No Transfers Transfer Destination Chair Transfer Technique ambulated Transfer Ability Level of Assist Minimal Assistance,1 Person Assistance,Use of Upper Extremities Comments Mobility Comments pt supine in bed and agreeable to do PT. obtained PLOF and home set up. BP in supine: 143/69. pt completed supine to sit max A and max cues. pt able to sit on EOB SBA. BP checked: 133/75. pt sat for ~ 2 more minutes and without c/o dizziness/lightheadedness. BP: 127/63. pt completed sit to stand min A and cues. pt requesting to use the toilet. urinal provided and pt was able to maintain standing balance min A while using the urinal. BP in standin/ 54. pt sat on EOB and rested. BP checked again: 119/59. pt without any complaints. completed sit to stand min A and ambulated in room using FWW ~ 8 ft min A and pt sat on the chair. positioned pt on the chair. BP checked: 136/72 . call light and table placed within reach. chair alarm set up. Gait Assessment Gait Gait Assistance Required: Minimum Assistance Distance (Feet) 8 Able to Maintain Weight Bearing Status Yes During Gait Assistive Devices Assistive Device Gait Belt,Front Wheeled Walker Orthotic/Prosthetic Devices or Brace: No Gait Deviations General Gait Pattern Ataxic,Decreased Stride Length ,Decreased Feet Clearance Factors Limiting Gait Function Factors Limiting Gait Function Decreased Activity Tolerance, Decreased Strength,Poor Balance,Poor Safety Awareness PT-Balance Assessment Sitting Balance and Reactions Static Sitting Balance Ability Good Dynamic Sitting Balance Ability Fair Standing Balance and Reactions Static Standing Balance Ability Fair Dynamic Standing Balance Ability Fair Device Used FWW M5 PT-IP Objective Assessments Start: 09/24/23 11:50 Freq: NEEDED Status: Active Protocol: Document 09/24/23 09:35 AB (Rec: 09/24/23 12:06 AB [id number]) Orientation Orientation/Cognition Level of Alertness Alert Orientation Name,Place,Situation Language Function Ability No Deficits Noted Safety Awareness Decreased Safety Awareness Memory Description No Deficits Noted Gross Range of Motion Lower Extremity ROM Assessment Within Functional Limits Strength Lower Extremity Strength Assessment Within Functional Limits Muscle Tone Muscle Tone WNL Yes M6 PT-IP Treatment Start: 09/24/23 11:50 Freq: NEEDED Status: Active Protocol: Document 09/24/23 09:35 AB (Rec: 09/24/23 12:06 AB [id number]) Physical Therapy Treatment Education Education Provided Safety M7 PT-IP Assessment and Plan Start: 09/24/23 11:50 Freq: NEEDED Status: Active Protocol: Document 09/24/23 09:35 AB (Rec: 09/24/23 12:06 AB [id number]) PT Summary Assessment and Plan Potential Rehabilitation Potential Fair Status of Condition at Evaluation Evolving Summary Impairments Pain,ROM,Strength,Balance, Coordination,Sensation,Tone, Cognition,Bed Mobility, Transfers,Gait,Activity Tolerance Assessment Summary pt is an 83 y/o M who presented to the ED s/p fall due to a syncope. pt has h/o orthostatic hypotension from previous admissions. pt admitted for hypomagnesemia and pt also scheduled for R index finger amputation that sustained a fracture from before. pt continues to have orthostatic hypotension with 143/69 supine BP to 106/54 in standing. pt requiring max A for bed mobility and min A for transfers and ambulation using FWW. d/c plan depending on progress and if spouse will be able to assist pt. will continue to assess. Goals Bed Mobility Goal Independent Transfer Goal Independent,Front Wheeled Walker Gait Goal Independent,Front Wheel Walker Gait Distance 100 Other Goals improve ambulation using FWW ~ 200 ft mod I up/down 2 steps L wall SBA Days to Meet Goals 10 Frequency of Treatment Frequency Of Treatment Once a Day Treatment Plan Physical Therapy Treatment Plan Bed Mobility Training,Transfer Training,Gait Training, Therapeutic Exercise,Balance Retraining,Discharge Planning, Hot or Cold Pack,Neuromuscular Re-ed,Coordination Retraining ,Manual Therapy Precautions Other Precautions BP Recommendations To Nursing Amount of Assist Needed 1 Person Assist Discharge Recommendations PT Discharge Recommendations Home with 07/04 Assist Available,Home Health,SNF Rehab,Home vs SNF Transportation Needs at Discharge Private Vehicle,Wheelchair/ Cabulance
--- NOTE | 2023-09-24 14:53 | OT.IP.EVAL ---
Current Diagnoses Syncope and collapse (09/23/23) Surgery Performed Operation Date: 09/24/23 17:15 <No data on this case meets the specified criteria> Past Medical History (Last Reviewed 08/22/23 @ 18:31 by Jono Newsome DO) Alcoholic pancreatitis Combined hyperlipidemia Concussion Essential tremor Falls frequently Fatty liver GERD (gastroesophageal reflux disease) History of prostate cancer Hypotension Intraparenchymal hemorrhage of brain Macrocytosis Protein calorie malnutrition Right fibular fracture Seizure Thrombocytopenia Surgical History (Last Reviewed 08/22/23 @ 18:31 by Jono Newsome DO) S/P total hip arthroplasty Status post colonoscopy Status post radical cystoprostatectomy Occupational Therapy Inpatient Evaluation/Re-Eval M1 PT/OT-IP Prior Functional Status Start: 09/24/23 14:59 Freq: NEEDED Status: Active Protocol: Document 09/24/23 14:20 [facility] (Rec: 09/24/23 15:22 [facility] [id number]) Medical Review Prior Functional Status Medical History Reviewed Yes Communication able to make needs known Mobility and Gait pt stated that he was modified independent with all mobilities and ambulation using a FWW Activities of Daily Living and IADL's Pt states able to do all ADL, IADL , and drives still. Social History Household Members spouse Living Arrangements House Number of Floors (Floors) One Floor Number of Stairs To Enter/Railing? 2 steps without rails to enter with L side wall Home Environment Standard Height Toilet,Walk in Shower Home Equipment Front Wheel Walker,Straight Cane,Grab Bars Near Toilet, Grab Bars In Shower Additional Social History Comment Pt just discharged from [facility] on 09/23/23 and had a fall at home and here on this admission due to syncope, low magnesium, and distal 2nd distal digit soft tissue laceration- now looking to have part of his left index finger amputated. M2 OT-IP Current Condition Start: 09/24/23 14:59 Freq: Status: Active Protocol: Document 09/24/23 14:20 [facility] (Rec: 09/24/23 15:22 [facility] [id number]) Occupational Therapy Current Condition Current Condition Evaluation Date 09/24/23 Treatment Diagnosis Syncope, hypomagnesium M3 OT- IP Subjective and Pain Start: 09/24/23 14:59 Freq: Status: Active Protocol: Document 09/24/23 14:20 [facility] (Rec: 09/24/23 15:22 [facility] [id number]) OT- Subjective Occupational Therapy Visit Type Type Initial Evaluation Visit Start Time 14:20 Visit Stop Time 14:53 Total Visit Minutes 33 Occupational Therapy Visit Comments Patient Comments Pt agreed to get up to use the urinal and to sponge off. Patient/Caregiver Goals To get better. OT Pain Assessment Pain When Pain Assessed At Rest Pain Present Pain Present Denied Pain M4 OT- IP ADL's Start: 09/24/23 14:59 Freq: Status: Active Protocol: Document 09/24/23 14:20 [facility] (Rec: 09/24/23 15:22 [facility] [id number]) OT [id number] Comments OT Self-Feeding Comments Pt NPO at this time and awaiting sx. OT ADL-Grooming General Evaluation Grooming Ability Independent OT ADL-Oral Care General Eval Oral Care Ability Independent Comments Oral Care Comments Able to do while seated in the recliner. OT ADL-Dressing General Eval Lower Body Dressing Ability Maximum Assistance Comments OT Dressing Comments Pt not able to use LUE well due to swollen index finger and needing assist for socks and brief management needs. OT ADL-Toileting General Evaluation Toileting Ability Minimal Assistance Areas Needing Assistance Empty Catheter or Colostomy, Manage Clothing Comments OT Toileting Comments Assist to hold the gown out of the way while standing to use the urinal. OT ADL-Bathing Bathing Type Bathing Type Sponge Bath General Evaluation Bathing Ability Contact Guard Assistance Comments OT Bathing Comments Pt able to sponge off with wash clothes- CGA for balance while standing. Pt will greatly benefit from a shower chair. Pt states has a built in seat that he states will use now. M5 OT- IP IADL's Start: 09/24/23 14:59 Freq: Status: Active Protocol: Document 09/24/23 14:20 [facility] (Rec: 09/24/23 15:22 [facility] [id number]) OT-Instrumental Activities of Daily Living Deficits IADL Deficits Identified Deficits Home Safety Awareness Awareness of Need for Assistance at Home Good Awareness Ability to Problem Solve Emergency Able to Problem Solve Situations Home Safety Comments Pt seems to have better awareness of now will be having to have his assist with IADl needs. Money Management Money Management Caregiver Provides Assistance Meal Preparation Meal Preparation Caregiver Provides Assist Prosthetic Dentist Prosthetic Dentist Caregiver Provides Assist Driving Driving Concerns Identified Regarding Safety M6 OT- IP Functional Cognition Start: 09/24/23 14:59 Freq: Status: Active Protocol: Document 09/24/23 14:20 [facility] (Rec: 09/24/23 15:22 [facility] [id number]) Cognitive Factors Limiting Selfcare Function Cognitive Ability Level of Alertness Alert Patient Orientation Name,Age,Birthday,Month,Date, Year,Day of Week,Place, Situation Attention Span Ability Capable of Focused Attention, Capable of Sustained Attention Cognitive Comments Cognitive Assessment Comments Pt able to follow commands for ADL and mobility needs. Pt scored 25/30 on 06/17/23 on prior admission after his subacute left frontal parietal subdura hematoma. To continue to assess cognitive needs. OT- Vision and Hearing OT- Hearing Assessment OT- Hearing Assessment WFL OT- Vision Assessment Visual Acuity Glasses For Reading Visual Attentiveness WFL Occular Pursuits WFL Visual Convergence WFL M7 OT- IP Mobility and Balance Start: 09/24/23 14:59 Freq: Status: Active Protocol: Document 09/24/23 14:20 [facility] (Rec: 09/24/23 15:22 [facility] [id number]) OT-Transfer Assessment Sit to and From Stand Sit to and from Stand Contact Guard Assistance Comments Mobility Comments CGA to stand to the FWW. Sitting BP 148/73 , standing 136/67 and after standing for several minutes dropped to 107 /66- pt did admit was starting to feel dizzy. Educated for pt to be more mindful of how he feels when up on his feet and during change of positioning. Pt states prior has had no awareness of syncope coming on. OT- Balance Assessment Sitting Balance and Reactions Static Sitting Balance Ability Good Dynamic Sitting Balance Ability Good Standing Balance and Reactions Static Standing Balance Ability Fair Dynamic Standing Balance Ability Fair M8 OT- IP Objective Assessments Start: 09/24/23 14:59 Freq: Status: Active Protocol: Document 09/24/23 14:20 [facility] (Rec: 09/24/23 15:22 [facility] [id number]) OT Strength Comments Strength Comments WFL except for left index finger M9 OT- IP Assessment and Plan Start: 09/24/23 14:59 Freq: Status: Active Protocol: Document 09/24/23 14:20 [facility] (Rec: 09/24/23 15:22 [facility] [id number]) OT Summary Assessment and Plan Potential Rehabilitation Potential Good Analytic Complexity at Evaluation Moderate Summary OT Impairments Range of Motion,Strength, Balance,Functional Mobility, Grooming,Dressing,Toileting, Bathing,Toilet Transfers, Shower Transfers Progress Towards Goals Slow Progress due to Medical Issues Assessment Summary Pt MOD complexity and main barriers are having syncope episode , steps, and decreased dynamic balance at this time. Pt will benefit from skilled rehab to help try to increase his awareness to having low BP, increase safety options and awareness for equipment needs for ADl and mobility needs. Pt to go to skilled rehab when medically stable. Goals Self-Feeding Goal Independent Grooming Goal Independent Dressing Goal Independent Toileting Goal Independent Bathing Goal Independent Toilet Transfer Goal Independent Shower Transfer Goal Independent Days to Meet Goals 15 Frequency of Treatment Frequency Of Treatment Once a Day Treatment Plan OT Treatment Plan ADL Training,Functional Mobility,Patient/Family Education,Discharge Planning Other Treatment Recommendations and Next reassess SL[facility] Treatment Focus Discharge Recommendations OT Discharge Recommendations SNF Rehab Home Equipment Needs Showr chair Transportation Needs at Discharge Wheelchair/Cabulance
--- NOTE | 2023-09-24 15:21 | PM.PN.1 ---
Subjective Subjective Interval history: Patient NPO for finger surgery today. He is still quite orthostatic and dropped 30 points when standing twice today. Exam Vital Signs (past 8 hours): - 09/24/23 07:45 09/24/23 08:00 09/24/23 09:00 Temperature 97.4 F L Pulse Rate 64 Pulse Rate [Orthostatic Sitting] 64 Pulse Rate [Orthostatic Standing] 87 Respiratory Rate 18 Blood Pressure 132/66 Blood Pressure [Orthostatic Lying] 132/66 Blood Pressure [Orthostatic Sitting] 133/75 Blood Pressure [Orthostatic Standing] 95/51 L Pulse Oximetry 96 Oxygen Delivery Method Room Air 09/24/23 12:00 Temperature 97.4 F L Pulse Rate 75 Pulse Rate [Orthostatic Sitting] Pulse Rate [Orthostatic Standing] Respiratory Rate 16 Blood Pressure 136/72 Blood Pressure [Orthostatic Lying] Blood Pressure [Orthostatic Sitting] Blood Pressure [Orthostatic Standing] Pulse Oximetry 96 Oxygen Delivery Method Oxygen Delivery Method Room Air Oxygen Flow Rate 0 Narrative Exam Narrative: GEN: Elderly male, very pleasant, Alert and oriented x 3, NAD HEENT:NC, Face symmetric CHEST: Respiratory excursions symmetric, CTAB CV: RRR, no M/R/G ABD: Soft, NT/ND, BT present in all 4 quadrants, no organomegaly or masses EXTR: warm, well perfused, no C/C/E SKIN: warm and dry, no rash, left index finger tip shows black eschar which appears gangrenous, some surrounding erythema and painful to palpation NEURO: Alert and oriented x 3, nonfocal Objective Labs 09/24/23 05:25 09/24/23 05:25 Labs: Laboratory Results - last 24 hr 09/23/23 09/24/23 12:59 05:25 WBC 4.8 RBC 3.95 L Hgb 12.9 L Hct 37.9 L MCV 95.9 MCH 32.8 MCHC 34.1 RDW 15.0 H Plt Count 153 Neut % (Auto) 50.3 Lymph % (Auto) 31.1 [place] % (Auto) 11.4 Eos % (Auto) 6.3 H Baso % (Auto) 0.9 Neut # (Auto) 2400 Lymph # (Auto) 1500 [place] # (Auto) 500 Eos # (Auto) 300 Baso # (Auto) 0 ESR 14 Sodium 139 Potassium 3.3 L Chloride 105 Carbon Dioxide 28 BUN 9 Creatinine 0.59 L Estimated GFR > 60 BUN/Creatinine Ratio 15.3 Glucose 87 Calcium 8.8 Magnesium 1.9 C-Reactive Protein 0.5 Ethyl Alcohol < 10 PFSH Medical History Hypotension Protein calorie malnutrition History of prostate cancer Seizure Thrombocytopenia Macrocytosis Alcoholic pancreatitis GERD (gastroesophageal reflux disease) Combined hyperlipidemia Falls frequently Intraparenchymal hemorrhage of brain Essential tremor Fatty liver Concussion Right fibular fracture Surgical History Status post radical cystoprostatectomy Status post colonoscopy S/P total hip arthroplasty Family History Father Prostate cancer Kidney problem Mother Old age Social History household members: spouse Smoking Status: Former smoker Tobacco: How many years used: 50 second hand exposure: No alcohol intake: current substance use type: does not use Assessment & Plan Assessment & Plan narrative: # recurrent syncope -patient has had multiple hospitalizations for syncope, was profoundly orthostatic in ED with 60 point systolic drop when standing -CT head and EKG negative -qshift orthostatics -given 2L IVF bolus -increase from 2.5 to 5mg midodrine TID and continue fludrocortisone 0.2mg daily -last echo in Jun 2023 was reassuring with EF 60-65% -tele -abominal binder and compression stockings -PT/OT evals # possible seizure disorder -patient on prophylactic keppra for possible seizures -will continue keppra # previous subdural hematoma and lacunar infarct -seen on MRI brain in Jun 2023 -continue aspirin and statin # L index finger gangrene -ortho consulted and will perform distal amputation on 09/24 -currently NPO # hypomagnesemia -Mag of 1.2 in ED, s/p 4g IV -monitor and replete PRN # GERD -continue PPI Code status is DNR. DVT prophylaxis with Lovenox. Proxy is . I have reviewed home meds and used all available resources to reconcile the home meds. Dispo: Pending OR course for finger and improvement in orthostasis. 2-3 days.
--- NOTE | 2023-09-24 15:53 | P.HP_ITS ---
History of Present Illness History of Present Illness Date Patient Seen: 09/24/23 Time Patient Seen: 15:53 Chief complaint: Necrotic left index finger tip Narrative: 83-year-old male seen in evaluation at request of primary team for left index finger tip necrosis. He has had a bandage on that finger tip for several weeks. He does not know when the initial injury occurred. He has been in and out of the hospital and rehab facility. The finger was noted to have a necrotic appearance after being admitted here for additional workup related to his falls. I was consulted for evaluation. He could not provide exact details of how exactly this injury had occurred. I also discussed it with his . He was able to relay back to me my surgical plan as well as the anticipated shortening of his finger. He does note pain in the finger. He has limitations in range of motion. His pain is worsened by movement and partially alleviated by rest. It has been present for several weeks [facility] Medical History Hypotension Protein calorie malnutrition History of prostate cancer Seizure Thrombocytopenia Macrocytosis Alcoholic pancreatitis GERD (gastroesophageal reflux disease) Combined hyperlipidemia Falls frequently Intraparenchymal hemorrhage of brain Essential tremor Fatty liver Concussion Right fibular fracture Surgical History Status post radical cystoprostatectomy Status post colonoscopy S/P total hip arthroplasty Family History Father Prostate cancer Kidney problem Mother Old age Social History household members: spouse Smoking Status: Former smoker Tobacco: How many years used: 50 second hand exposure: No alcohol intake: current substance use type: does not use Meds Home Medications and Allergies Home Medications Medication Instructions Recorded Confirmed Type omeprazole 20 mg capsule,delayed 20 mg PO DAILY #90 caps 06/09/23 09/23/23 Rx release levetiracetam 500 mg tablet 500 mg PO BID #180 tabs 07/28/23 09/23/23 Rx midodrine 2.5 mg tablet 2.5 mg PO 0600,1200,1800 #270 tabs 07/28/23 09/23/23 Rx fludrocortisone 0.1 mg tablet 0.2 mg (2 x 0.1 mg) PO DAILY #180 08/18/23 09/23/23 Rx tabs Transport Chair #1 ea 08/20/23 09/23/23 Rx bacitracin 500 unit/gram topical 1 applic topical DAILY #144 ea 08/25/23 09/23/23 Rx packet potassium chloride 20 mEq 20 meq PO DAILYCC #30 tabs 08/25/23 09/23/23 Rx tablet,extended release ondansetron HCl 4 mg tablet 4 mg PO Q6HR PRN Nausea And 09/23/23 09/23/23 History Vomiting Allergies Allergy/AdvReac Type Severity Reaction Status Date / Time No Known Allergies Allergy Verified 08/22/23 14:13 Review of Systems Review of Systems ROS: Yes All systems reviewed with the patient and are negative except as otherwise documented Exam Vital Signs (past 8 hours): - 09/24/23 08:00 09/24/23 09:00 09/24/23 12:00 Temperature 97.4 F L 97.4 F L Pulse Rate 64 75 Pulse Rate [Orthostatic Sitting] 64 Pulse Rate [Orthostatic Standing] 87 Respiratory Rate 18 16 Blood Pressure 132/66 136/72 Blood Pressure [Orthostatic Lying] 132/66 Blood Pressure [Orthostatic Sitting] 133/75 Blood Pressure [Orthostatic Standing] 95/51 L Pulse Oximetry 96 96 Oxygen Delivery Method 09/24/23 15:27 Temperature 98.5 F Pulse Rate 71 Pulse Rate [Orthostatic Sitting] Pulse Rate [Orthostatic Standing] Respiratory Rate 18 Blood Pressure 147/77 H Blood Pressure [Orthostatic Lying] Blood Pressure [Orthostatic Sitting] Blood Pressure [Orthostatic Standing] Pulse Oximetry 97 Oxygen Delivery Method Room Air Oxygen Delivery Method Room Air Oxygen Flow Rate 0 Narrative Exam Narrative: Left index finger distal phalanx shows necrotic tissue underneath the nail bed. There is erythema extending up to the distal interphalangeal joint. There is swelling and induration. He has significant limitations in range of motion in the DIP joint. There is no purulent drainage Const General: cooperative Orientation: alert and awake [facility] Head: normal to inspection Ears: hearing grossly normal bilaterally Eyes General: appearance normal, both eyes and all related structures Neck Neck: normal visual inspection Resp Effort & Inspection: normal respiratory effort and able to speak in complete sentences Cardio Pulses: other (peripheral pulses present) Skin Lesions: no lesions Rashes: no rashes Neuro General: patient alert, patient awake and moves all extremities Psych Appearance: grossly normal Objective Labs 09/24/23 05:25 09/24/23 05:25 Labs: Laboratory Results - last 24 hr 09/23/23 09/24/23 12:59 05:25 WBC 4.8 RBC 3.95 L Hgb 12.9 L Hct 37.9 L MCV 95.9 MCH 32.8 MCHC 34.1 RDW 15.0 H Plt Count 153 Neut % (Auto) 50.3 Lymph % (Auto) 31.1 [place] % (Auto) 11.4 Eos % (Auto) 6.3 H Baso % (Auto) 0.9 Neut # (Auto) 2400 Lymph # (Auto) 1500 [place] # (Auto) 500 Eos # (Auto) 300 Baso # (Auto) 0 ESR 14 Sodium 139 Potassium 3.3 L Chloride 105 Carbon Dioxide 28 BUN 9 Creatinine 0.59 L Estimated GFR > 60 BUN/Creatinine Ratio 15.3 Glucose 87 Calcium 8.8 Magnesium 1.9 C-Reactive Protein 0.5 Ethyl Alcohol < 10 Assessment & Plan Assessment and plan (1) Finger necrosis: Status: Acute Plan This appears to have been a tuft fracture of the left index finger that was neglected and has now gone on to necrosis. His CRP is normal however I am concerned that there may be an early infection in the area. I will obtain cultures. I discussed with him that I will try to preserve the bone of his distal phalanx if at all possible however I do not anticipate that being likely. I anticipate the most likely result of the surgery will be a partial amputation with disarticulation through the distal interphalangeal joint. I discussed this with the patient at length today. I also discussed it with his . I had the patient repeat back the details of the procedure to me to ensure that he fully understood the plan. He does appear to have some cognitive limitations secondary to his multiple medical issues however he has clear understanding of my plan for this procedure and his was present as well and all of her questions were answered.
--- NOTE | 2023-09-24 16:06 | SUR.OPER ---
Supine on padded OR bed, head on pillow, non op arm secured on padded arm board at <90 degrees abduction, legs uncrossed, safety belt at thigh, tape over blanket over lower legs. operative arm on hand padded hand table
[2023-09-24] MEDS: CEFAZOLIN 2 GM/100 ML PREMIX 100 ML IV (16:50)
[2023-09-24] MEDS: BUPIVACAINE 0.5% (PF) 30 ML VIAL INJ (17:05)
--- NOTE | 2023-09-24 17:20 | PM.OP.1 ---
Operative Date/Time/Diagnoses Date of procedure: 09/24/23 Pre-op diagnosis: Necrotic left index fingertip following presumed neglected tuft fracture Post-op diagnosis: same Procedure & Clinicians Procedure: Left index finger disarticulation through distal interphalangeal joint with amputation distal phalanx Same procedure as scheduled: Yes Surgeon: Alberto Nava Click Yes if Unassisted: Yes Anesthesia Type: Sedation and Peripheral nerve block Operative Notes Estimated Blood Loss (mL): 20 Procedure in detail: This 83-year-old male patient had necrosis of his fingertip. It appeared to be centered around his nail bed. He reported having had a bandage for about a month. This was presumed to be necrosis related to a neglected tuft fracture. He had some erythema and swelling extending proximally with associated fluctuance. I did have concerns that there may be a superimposed infection. Discussed risks and benefits of amputation with him and his . They wished to proceed. The operative site was marked. The informed consent form was signed. The patient was able to repeat back to me the details of the planned procedure. He was brought back to the operating room and placed supine on the operating table. All bony prominences were padded. A time-out procedure was performed. Ancef was administered. I infiltrated the volar MCP joint with bupivacaine for a local block which would anesthetize both of the digital nerves. Propofol was utilized for sedation. He was prepped and draped in the usual sterile fashion I began by excising the necrotic tissue. This encompassed the entire nail bed. I removed his nail and noted that the necrotic nail bed extended down to bone. I evaluated the feasibility of closing over the bone and determined there was inadequate soft tissue. I therefore used a rongeur to remove the distal phalanx. I removed bone until the articular surface of the middle phalanx was exposed. I then copiously irrigated the wound bed. I closed the finger using nylon sutures. I excised the corners the soft tissue to restore the contour of the finger. I applied a soft dressing Post-operative Plan for aftercare: 1. Patient is currently admitted for recurrent falls. Does not need to remain admitted for his finger. Further care at the discretion of the hospitalist 2. Maintain wound dressing until follow up with our clinic in 2 weeks. Nylon sutures in place should be removed at that time 3. Ancef during this admission. Transitioned to oral antibiotics at time of discharge for prophylaxis against infection. I did send a portion of the fingertip for culture. There were no obvious abscess sites within the finger however I would still recommend prophylactic antibiotics for at least a week
--- NOTE | 2023-09-24 18:09 | PC.NURSE ---
Pt discharged home at 1745, escorted off floor in wheelchair accompanied by hospital staff. IV removed, tele d/c'd, discharge teaching completed including follow up appointments, new medications and wound care. Questions answered and concerns addressed. Patient left the floor with all belongings.
[2023-09-24] MEDS: MIDODRINE HCL 5 MG TABLET 2.5 MG PO (18:32)
--- NOTE | 2023-09-24 19:20 | PC.NURSE ---
Pt returned from PACU at 1750, A&Ox4, no c/o pain. Thad wrap and splint to L hand c/d/i, CMS intact to surrounding fingers. VSS on RA, tele reading NSR. Pt and reoriented to room and call light. Bed in low position, SCDs on, call light within reach.
[2023-09-24] MEDS: ATORVASTATIN 20 MG TABLET 80 MG PO (20:18)
[2023-09-24] MEDS: DOCUSATE 100 MG CAPSULE PO (20:19)
[2023-09-24] MEDS: SENNOSIDES 8.6 MG TABLET 17.2 MG PO (20:19)
--- NOTE | 2023-09-24 23:15 | PC.NURSE ---
Addendum entered by Beverly Garland R.N. 09/25/23 01:33: gm stain on left index wound culture is showing gram + cocci; patient placed on contact isolation. Original Note: Patient is alert and oriented except off on day of month by 2 days. Breath sounds CTA with RA sat of 95%; on continuous oximetry. HRR but bradycardic with rate in 50's; telemetry reading was SB. BP elevated at 155/78. Has had orthostasis so RAMEZ stockings are on and abdominal binder was placed per MD order. Denied nausea. BT present and is passing flatus. Is voiding per urinal and denied any dysuria. Is able to move himself in bed. Gait not assessed but per PT notes and conversation with patient he was able to walk in room and sat in chair; needed walker and 1 assist. Is wearing RAMEZ stockings; Dr. Newsome was asked if SCD's still needed in addition to RAMEZ stockings and he verbalized that SCD's could be d'cd. Left index finger is in a splint and dressed w/lizabeth wrapped around hand. At time of assessment he denied any numbness or tingling, had good cap refill and was able to wiggle all his fingers. Around 2029 patient was found having removed entire dressing and stated he did so because he was having numbness in left thumb and middle fingers and thought the dressing/lizabeth was too tight. Finger/hand redressed per DELIO Medel, and patient stated he understands that the dressing needs to be left in place. CMS remains intact except for the numbness. Fingers are warm to touch and patient has a good radial pulse. 3rd finger of left hand still with blacked nail, swelling and erythema. Denied pain. CIWA scores have all been 0. Fall risk score is high and bed alarm is activated.
[2023-09-25] VITALS (10 sets, daily range): BP systolic 81–161; BP diastolic 49–124; PULSE 60–101; RESP 16–19; TEMP 36.2–37.2; O2SAT 95–98
[2023-09-25] MEDS: SODIUM CHLORIDE 0.9% FLUSH 10 ML IV ×3 (00:37→20:46)
[2023-09-25] MEDS: CEFAZOLIN 2 GM/100 ML PREMIX 100 ML IV ×3 (00:37→16:42)
[2023-09-25 05:40] LABS: Add Manual Diff / Slide Review NO; Basophils Absolute Auto 0 /uL (0-100); Basophils Percent Auto 0.7 % (0-2); Eosinophils Absolute Auto 300 /uL (0-450); Eosinophils Percent Auto 5.3 % (2-4); Hematocrit 37.9 % (41-53); Hemoglobin 13.1 g/dL (13.5-17.5); Lymphocytes Absolute Auto 1300 /uL (1100-4500); Lymphocytes Percent Auto 21.1 % (25-40); Mean Corpuscular HGB Conc 34.5 % (30-36); Mean Corpuscular Hemoglobin 32.8 PG (26-34); Mean Corpuscular Volume 95.2 fL (80-100); Monocytes Absolute Auto 700 /uL (0-900); Monocytes Percent Auto 11.5 % (3-14); Neutrophils Absolute Auto 3800 /uL (1500-7000); Neutrophils Percent Auto 61.4 % (50-75); Platelet Count 148 X10^3/uL (150-400); Red Blood Cell Count 3.99 X10^6/uL (4.5-5.9); Red Cell Distribution Width 14.9 % (11.6-14.8); White Blood Cell Count 6.1 X10^3/uL (4.5-11.0)
[2023-09-25] MEDS: PANTOPRAZOLE DR 20 MG TABLET PO (05:45)
[2023-09-25 05:51] LABS: BUN Creatinine Ratio 11.9 (6-22); Blood Urea Nitrogen 7 mg/dL (9-20); Carbon Dioxide 28 mmol/L (22-32); Chloride 104 mmol/L (98-107); Estimated Glomerular Filt Rate > 60 mL/min (>60); Glucose 91 mg/dL (80-110); HEMOLYSIS 19 (0-50); Potassium 3.6 mmol/L (3.4-5.1); Sodium 137 mmol/L (137-145)
[2023-09-25 05:52] LABS: Magnesium 1.4 mg/dL (1.6-2.3)
[2023-09-25] MEDS: POTASSIUM CHLORIDE 20 MEQ TAB 40 MEQ PO (07:39)
[2023-09-25] MEDS: OXYCODONE IR 5 MG TABLET PO ×3 (07:39→13:16)
[2023-09-25] MEDS: ACETAMINOPHEN 325 MG TABLET 650 MG PO ×2 (07:39→13:16)
[2023-09-25] MEDS: MIDODRINE HCL 5 MG TABLET 2.5 MG PO (07:40)
--- NOTE | 2023-09-25 08:21 | PC.NURSE ---
Spoke to Dr. Nava, about the pt's pain after having already given the pt a 5 mg oxycodone at 0739. Pt reported pain 8/10, verbal order recieved to give a one time dose of 5 mg oxycodone now.
--- NOTE | 2023-09-25 08:35 | P.PN_ITS ---
Subjective Subjective Date Patient Seen: 09/25/23 Time Patient Seen: 08:38 Interval history: Pt had a bandage on left index finger tip for several weeks. He does not know when the initial injury occurred. He has been in and out of the hospital and rehab facility. The finger was noted to have a necrotic appearance after being admitted here for additional workup related to his falls. He could not provide exact details of how exactly this injury had occurred. Dr Nava took the pt to surgery yesterday evening and amputated the fingertip. Gram stain showed GPC, aerobic and anaerobic cultures are pending. He is on IV cefazolin. This morning, he is sitting up in bed. C/o continued pain in the finger. Exam Vital Signs (past 8 hours): - 09/25/23 00:45 09/25/23 00:45 09/25/23 05:00 Temperature 97.2 F L 98.9 F Pulse Rate 69 80 Pulse Rate [Orthostatic Lying] 69 Pulse Rate [Orthostatic Sitting] 78 Pulse Rate [Orthostatic Standing] 95 H Respiratory Rate 17 16 Blood Pressure 161/77 H 156/72 H Blood Pressure [Orthostatic Lying] 161/77 H Blood Pressure [Orthostatic Sitting] 146/124 H Blood Pressure [Orthostatic Standing] 81/49 L Pulse Oximetry 98 95 Oxygen Flow Rate 0 0 09/25/23 07:30 Temperature Pulse Rate Pulse Rate [Orthostatic Lying] 76 Pulse Rate [Orthostatic Sitting] 82 Pulse Rate [Orthostatic Standing] 98 H Respiratory Rate Blood Pressure Blood Pressure [Orthostatic Lying] 148/78 H Blood Pressure [Orthostatic Sitting] 138/70 Blood Pressure [Orthostatic Standing] 82/66 L Pulse Oximetry Oxygen Flow Rate Oxygen Delivery Method Room Air Oxygen Flow Rate 0 Narrative Exam Narrative: Bandage to left hand in place, index finger w/ protective splint. Pt able to move all other digits without difficulty, sensation to touch intact. Objective Labs 09/25/23 05:25 09/25/23 05:25 Labs: Laboratory Results - last 24 hr 09/25/23 05:25 WBC 6.1 RBC 3.99 L Hgb 13.1 L Hct 37.9 L MCV 95.2 MCH 32.8 MCHC 34.5 RDW 14.9 H Plt Count 148 L Neut % (Auto) 61.4 Lymph % (Auto) 21.1 L [place] % (Auto) 11.5 Eos % (Auto) 5.3 H Baso % (Auto) 0.7 Neut # (Auto) 3800 Lymph # (Auto) 1300 [place] # (Auto) 700 Eos # (Auto) 300 Baso # (Auto) 0 Sodium 137 Potassium 3.6 Chloride 104 Carbon Dioxide 28 BUN 7 L Creatinine 0.59 L Estimated GFR > 60 BUN/Creatinine Ratio 11.9 Glucose 91 Calcium 9.0 Magnesium 1.4 L PFSH Medical History Hypotension Protein calorie malnutrition History of prostate cancer Seizure Thrombocytopenia Macrocytosis Alcoholic pancreatitis GERD (gastroesophageal reflux disease) Combined hyperlipidemia Falls frequently Intraparenchymal hemorrhage of brain Essential tremor Fatty liver Concussion Right fibular fracture Surgical History Status post radical cystoprostatectomy Status post colonoscopy S/P total hip arthroplasty Family History Father Prostate cancer Kidney problem Mother Old age Social History household members: spouse Smoking Status: Former smoker Tobacco: How many years used: 50 second hand exposure: No alcohol intake: current substance use type: does not use Assessment & Plan Post-op Assessment and plan (1) Finger necrosis: Assessment and Plan narrative: 1) Patient is currently admitted to medicine for recurrent falls (this was clarified w/ Dr Newsome today). Does not need to remain admitted for his finger. Further care at the discretion of the hospitalist 2) Maintain wound dressing until follow up with our clinic in 2 weeks. Nylon sutures in place should be removed at that time. If dressing does become dirty, can clean incision w/ sterile water and peroxide and replace w/ xeroform and gauze. 3) Continue Ancef during this admission. Transition to oral antibiotics at time of discharge for prophylaxis against infection. A portion of the fingertip was sent for culture. There were no obvious abscess sites within the finger however recommend prophylactic antibiotics for at least a week. Postoperative Procedures: Procedures Operation Date: 09/24/23 17:15 Actual Procedure Side Surgeon p Index Finger Amputation Left Alberto Nava MD Postoperative day: 1
[2023-09-25] MEDS: MAGNESIUM SULFATE 4 GM/100 ML PIGGYBACK IV (08:45)
[2023-09-25] MEDS: DOCUSATE 100 MG CAPSULE PO ×2 (08:46→20:45)
[2023-09-25] MEDS: levETIRAcetam 250 MG TABLET 500 MG PO ×2 (08:46→20:45)
[2023-09-25] MEDS: FLUDROCORTISONE 0.1 MG TABLET 0.2 MG PO (08:47)
[2023-09-25] MEDS: ASPIRIN EC 81 MG TABLET PO (08:47)
[2023-09-25] MEDS: MIDODRINE HCL 5 MG TABLET PO ×3 (08:49→16:42)
[2023-09-25] MEDS: OXYCODONE IR 10 MG TABLET PO ×2 (11:20→15:29)
--- NOTE | 2023-09-25 11:27 | DI.CT.S_ITS ---
PROCEDURE: CT ANGIO UE LT INDICATIONS: gangrenous fingers TECHNIQUE: After the administration of intravenous contrast, 2.5 mm sections acquired from the aortic arch through the symptomatic arm, with optional delayed image acquisition from the elbows to the fingers. 3-dimensional maximum intensity projection (MIP) coronal and sagital reformats, and/or 3-dimensional volume rendering reformatting was then performed. For radiation dose reduction, the following was used: automated exposure control. COMPARISON: None. FINDINGS: Image quality: Excellent. Vessels: There is conventional anatomy of the great vessels. Visualized portions of the right subclavian artery, common carotid artery, and external carotid artery demonstrate normal caliber and wall thickness. Dense atheromatous calcifications are present at the origin of the right internal carotid artery with approximately 50% stenosis. The right common carotid artery and external carotid artery are patent where visualized. Atheromatous calcifications are present within the proximal right internal carotid artery with 50-69% stenosis (series 6/image 128). The right subclavian artery is widely patent. The right axillary artery and brachial artery are widely patent. The radial and ulnar arteries are widely patent. The superficial palmar arch appears intact. The deep ulnar arch is not visualized. All of the digital arteries appear patent where visualized. The digital artery to the 5th digit is diminutive and difficult to follow to the tip of the distal phalanx. No definite arterial occlusion visualized. Extravascular tissues: There is amputation of the distal phalanx of the 2nd digit. No suspicious bony lesions or cortical disruption to suggest advanced osteomyelitis. IMPRESSION: 1. No stenosis, occlusion, or aneurysm of the visualized arteries of the left upper extremity. The vessels of the left upper extremity appear patent to the level of the digits where visualized. 2. The superficial palmar arch appears intact. The deep palmar arch is not visualized. This may be a congenital absence, although may also be secondary to the limitations of this study. 3. Less than 50% stenosis of the right internal carotid artery where visualized. Approximately 50-69% stenosis of the left internal carotid artery where visualized. If further characterization is warranted, carotid ultrasound could be used. Dictated by: Jo Montoya M.D. on 09/25/2023 at 14:01 Approved by: Jo Montoya M.D. on 09/25/2023 at 14:15
--- NOTE | 2023-09-25 13:55 | OT.IP.TRT ---
Current Diagnoses Gangrene, not elsewhere classified (09/23/23) Syncope and collapse (09/23/23) Surgery Performed Operation Date: 09/24/23 17:15 Actual Procedures p Index Finger Amputation(Left) - Alberto Nava MD Occupational Therapy Treatment Note M2 OT-IP Current Condition Start: 09/24/23 14:59 Freq: Status: Active Protocol: Document 09/24/23 14:20 [facility] (Rec: 09/24/23 15:22 [facility] [id number]) Occupational Therapy Current Condition Current Condition Evaluation Date 09/24/23 Treatment Diagnosis Syncope, hypomagnesium M3 OT- IP Subjective and Pain Start: 09/24/23 14:59 Freq: Status: Active Protocol: Document 09/25/23 13:57 [facility] (Rec: 09/25/23 14:20 [facility] [id number]) OT- Subjective Occupational Therapy Visit Type Type Treatment Note Visit Start Time 13:15 Visit Stop Time 13:55 Total Visit Minutes 40 Occupational Therapy Visit Comments Patient Comments Pt agreed to get up to the recliner so able to get his bed changed out due to per nursing not able to use the urinal accurately due to his left finger/hand heavily wrapped from just having part of his left finger amputated. Patient/Caregiver Goals Pt wanting to go home. OT Pain Assessment Pain When Pain Assessed At Rest Pain Present Pain Present Pain Reported M4 OT- IP ADL's Start: 09/24/23 14:59 Freq: Status: Active Protocol: Document 09/25/23 13:57 [facility] (Rec: 09/25/23 14:20 [facility] [id number]) OT [id number] Comments OT Self-Feeding Comments Pt needing assist for set-up. OT ADL-Grooming Comments OT Grooming Comments Pt needing assist for set-up and completeness due his left hand heavily wrapped and not able to use it much. OT ADL-Oral Care Comments Oral Care Comments Not performed. OT ADL-Dressing General Eval Lower Body Dressing Ability Maximum Assistance Comments OT Dressing Comments MAXA due to unable to use left hand to assist with his needs. OT ADL-Toileting General Evaluation Toileting Ability Moderate Assistance Areas Needing Assistance Manage Clothing Comments OT Toileting Comments Assist from brief management needs. OT ADL-Bathing Comments OT Bathing Comments Not performed. Pt will benefit from a shower chair at home as pt's BP drops. M5 OT- IP IADL's Start: 09/24/23 14:59 Freq: Status: Active Protocol: Document 09/25/23 13:57 [facility] (Rec: 09/25/23 14:20 [facility] [id number]) OT-Instrumental Activities of Daily Living Home Safety Awareness Home Safety Comments Pt states prior at home has caregivers 6 hours to assist but not anyone there 07/04 assist to help besides his . M6 OT- IP Functional Cognition Start: 09/24/23 14:59 Freq: Status: Active Protocol: Document 09/25/23 13:57 [facility] (Rec: 09/25/23 14:20 [facility] [id number]) Cognitive Factors Limiting Selfcare Function Cognitive Comments Cognitive Assessment Comments Re-tested SLUMS and today pt scored 19/30 which implies dementia, however score may be affected by his infection and recent surgery. Pt only able to states 8 animals in one minute, able to recall 4 objects after time passes, and not able to answer after questions after a paragraph read. Pt admit that his STM has not been good recently. Pt however is well aware not to drive at this time. Pt continues to have poor safety awareness for his needs of drop in BP while standing as pt is asymptomatic. Educated to pt best to sit to urinate versus stand as pt BP drop when up on his feet. Re- iterated best to sit for showering needs as well. M7 OT- IP Mobility and Balance Start: 09/24/23 14:59 Freq: Status: Active Protocol: Document 09/25/23 13:57 [facility] (Rec: 09/25/23 14:20 [facility] [id number]) OT- Bed Mobility Assessment Supine to Sit Supine to Sit Assist Moderate Assistance Sit to Supine Sit to Supine Assist Minimal Assistance OT-Transfer Assessment Sit to and From Stand Sit to and from Stand Minimal Assistance Transfers Transfer Ability Contact Guard Assistance Technique Transfer Destination Bed,Toilet Devices Transfer Assistive Devices Gait Belt,Front Wheeled Walker Comments Mobility Comments After getting back from the toilet with FWW and CGA. BP 87 /55, pt not symptomatic, sitting 113/66, and back in bed 134/69. Pt tends to keep the FWW to far in front of him and has difficulty to hold it due to left hand heavily bandaged. Pt may benefit from a platform for the left side. OT- Balance Assessment Sitting Balance and Reactions Static Sitting Balance Ability Good Dynamic Sitting Balance Ability Good Standing Balance and Reactions Static Standing Balance Ability Fair Dynamic Standing Balance Ability Fair M8 OT- IP Objective Assessments Start: 09/24/23 14:59 Freq: Status: Active Protocol: Document 09/24/23 14:20 [facility] (Rec: 09/24/23 15:22 [facility] [id number]) OT Strength Comments Strength Comments WFL except for left index finger M9 OT- IP Assessment and Plan Start: 09/24/23 14:59 Freq: Status: Active Protocol: Document 09/25/23 13:57 [facility] (Rec: 09/25/23 14:20 [facility] [id number]) OT Summary Assessment and Plan Potential Rehabilitation Potential Good Analytic Complexity at Evaluation Moderate Summary OT Impairments Pain,Range of Motion,Strength, Balance,Functional Mobility, Grooming,Dressing,Toileting, Bathing,Toilet Transfers, Shower Transfers Progress Towards Goals Slow Progress due to Medical Issues,Slow Progress due to Cognition Assessment Summary Pt continues to have decreased BP when standing but asymptomatic. Supine 134/69, sitting 113/66, and standing 87/55- educating at this time best to sit to urinate or use of urinal. Pt would benefit from skilled rehab to work on safety awareness or learning to sit for needs versus standing due to his syncope and increase his dynamic balance. Pt however is insistent on going home. Goals Self-Feeding Goal Standby Assistance Grooming Goal Standby Assistance Dressing Goal Minimal Assistance Toileting Goal Standby Assistance Bathing Goal Minimal Assistance Toilet Transfer Goal Independent Shower Transfer Goal Independent Days to Meet Goals 15 Frequency of Treatment Frequency Of Treatment Once a Day Treatment Plan OT Treatment Plan ADL Training,Functional Mobility,Patient/Family Education,Discharge Planning Discharge Recommendations OT Discharge Recommendations SNF Rehab Other Discharge Recommendations If pt refusing SNF, best to have 07/04 assist and home health Home Equipment Needs Shower chair Transportation Needs at Discharge Wheelchair/Cabulance
--- NOTE | 2023-09-25 13:57 | PT.IPTN ---
Current Diagnoses Gangrene, not elsewhere classified (09/23/23) Syncope and collapse (09/23/23) Surgery Performed Operation Date: 09/24/23 17:15 Actual Procedures p Index Finger Amputation(Left) - Alberto Nava MD Physical Therapy Treatment Note M2 PT-IP Current Condition Start: 09/24/23 11:50 Freq: NEEDED Status: Active Protocol: Document 09/24/23 09:35 AB (Rec: 09/24/23 12:06 AB [id number]) Physical Therapy Current Condition Current Condition Evaluation Date 09/24/23 Treatment Diagnosis syncope; difficulty in walking Onset Date 09/23/22 M3 PT-IP Subjective Start: 09/24/23 11:50 Freq: NEEDED Status: Active Protocol: Document 09/25/23 14:34 TS (Rec: 09/25/23 15:02 TS [id number]) Subjective Physical Therapy Visit Type Type Treatment Note Visit Start Time 13:57 Visit Stop Time 14:30 Total Visit Minutes 33 Number of DATA SECURITY ANALYST Visits 1 Physical Therapy Visit Comments Patient Comments Pt found resting in bed, reports getting up a couple of times today, is agreeable to PT. M4 PT-IP Mobility and Gait Start: 09/24/23 11:50 Freq: NEEDED Status: Active Protocol: Document 09/25/23 14:34 TS (Rec: 09/25/23 15:02 TS [id number]) PT-Bed Mobility Assessment Supine to Sit Supine to Sit Contact Guard Assistance Sit to Supine Sit to Supine Standby Assistance Scooting Scooting to Edge of Bed Standby Assistance Scooting Up and Down in Bed Minimal Assistance PT-Transfer Assessment Sit to and From Stand Sit to and from Stand Contact Guard Assistance,Use of Upper Extremities Equipment Transfer Assistive Device Gait Belt,Front Wheeled Walker Orthotic/Prosthetic Devices or Brace: No Comments Mobility Comments Pt found resting in bed, BP in supine 145/70 prior to mobility. Supine to sit CGA with HOB slightly elevated, pt assist to sititng with RUE. He sat EOB, BP 116/60, pt denied any symptoms. Sit to stand with FWW CGA, pt has good standing balance with no retroleaning. BP in standing 92/55, pt continues to deny any symptoms. Pt ambulated in hallway ~150' SBA with FWW and w/c trailing, pt had no buckling or LOB, continues to deny any symptoms of hypotension. He ambulated back to room, performed stairs x3 with single rail CGA. Bp check again in standing 83/36. Sit to supine into bed SBA. Pt was left in bed, nursing in room for placement of olvera cath. Gait Assessment Gait Gait Assistance Required: Standby Assistance Distance (Feet) 150 Assistive Devices Assistive Device Gait Belt,Front Wheeled Walker Orthotic/Prosthetic Devices or Brace: No Gait Deviations General Gait Pattern Ataxic,Decreased Stride Length ,Decreased Feet Clearance Factors Limiting Gait Function Factors Limiting Gait Function Decreased Activity Tolerance, Decreased Strength,Poor Balance,Poor Safety Awareness Comments Gait Comments See mobility comments. Stair Climbing Assessment Evaluation Level of Assist On Stairs Contact Guard Assistance,1 Person Assistance Devices Stair Climbing Assistive Devices Right Railing Technique/Endurance Stair Climbing Direction Ascend and Descend Stair Climbing Technique Step to Step Number of Steps Climbed 3 PT-Balance Assessment Sitting Balance and Reactions Static Sitting Balance Ability Good Dynamic Sitting Balance Ability Good Standing Balance and Reactions Static Standing Balance Ability Good Dynamic Standing Balance Ability Fair Device Used FWW M5 PT-IP Objective Assessments Start: 09/24/23 11:50 Freq: NEEDED Status: Active Protocol: Document 09/24/23 09:35 AB (Rec: 09/24/23 12:06 AB [id number]) Orientation Orientation/Cognition Level of Alertness Alert Orientation Name,Place,Situation Language Function Ability No Deficits Noted Safety Awareness Decreased Safety Awareness Memory Description No Deficits Noted Gross Range of Motion Lower Extremity ROM Assessment Within Functional Limits Strength Lower Extremity Strength Assessment Within Functional Limits Muscle Tone Muscle Tone WNL Yes M6 PT-IP Treatment Start: 09/24/23 11:50 Freq: NEEDED Status: Active Protocol: Document 09/25/23 14:34 TS (Rec: 09/25/23 15:02 TS [id number]) Physical Therapy Treatment Education Education Provided Safety M7 PT-IP Assessment and Plan Start: 09/24/23 11:50 Freq: NEEDED Status: Active Protocol: Document 09/25/23 14:34 TS (Rec: 09/25/23 15:02 TS [id number]) PT Summary Assessment and Plan Potential Rehabilitation Potential Fair Summary Impairments Pain,ROM,Strength,Balance, Coordination,Sensation,Tone, Cognition,Bed Mobility, Transfers,Gait,Activity Tolerance Progress Towards Goals Progressing Toward Goals Assessment Summary Ac is progressing well with his mobility this session. He is CGA for supine to sit, he demonstrates good use of RUE to assist trunk into sitting position. He performed sit to stand x2 with FWW SBA, had good balance with no retroleaning. He progressed his gait to ~150'SBA with FWW and a step thru gait with normal pacing. He performed stairs x3 CGA with use of single rail, pt had no buckling or LOB. His BP desats from 145/70 supine to 83/36 after mobility in standing. He denied any symptoms throughout the session. PT at this time is recommending Home vs SNF. Pt's mobility has been inconsistent and may benefit from SNF and daily PT. PT will continue to assess pt 's progress during hospital stay. Goals Bed Mobility Goal Independent Transfer Goal Independent,Front Wheeled Walker Gait Goal Independent,Front Wheel Walker Gait Distance 100 Other Goals improve ambulation using FWW ~ 200 ft mod I up/down 2 steps L wall SBA Days to Meet Goals 10 Frequency of Treatment Frequency Of Treatment Once a Day Treatment Plan Physical Therapy Treatment Plan Bed Mobility Training,Transfer Training,Gait Training, Therapeutic Exercise,Balance Retraining,Discharge Planning, Hot or Cold Pack,Neuromuscular Re-ed,Coordination Retraining ,Manual Therapy Precautions Other Precautions BP Recommendations To Nursing Amount of Assist Needed 1 Person Assist Discharge Recommendations PT Discharge Recommendations Home with 07/04 Assist Available,Home Health,SNF Rehab,Home vs SNF Transportation Needs at Discharge Private Vehicle,Wheelchair/ Cabulance
--- NOTE | 2023-09-25 14:22 | CM.DPNOTE ---
Addendum entered by DONTAE Sharif 09/25/23 14:40: ADD: Need PASRR if discharging to SNF Original Note: DCP Cont Placed call to patient's spouse Margarita, introduced self and role. aMrgarita reports she had [facility] caregiver [facility] scheduled to provide 6 hours of daily care before patient was admitted. Margarita unsure she can safely take patient home at this time and requests a referral to [facility]. Margarita does not want patient to leave [facility] because she will not drive out of town. Placed call to Micki, discussed referral. Micki now reviewing and will plan to start auth request through [facility]. Plan: Discharge to SNF anticipated, spouse requests [facility] reviewing and submitting for auth through [facility] CM team following for coordination of discharge plan. PRATEEK
--- NOTE | 2023-09-25 15:43 | P.PN_ITS ---
Subjective Subjective Interval history: Patient having more finger pain following finger amputation surgery yesterday. He is still quite orthostatic. Had multiple urination accidents in bed so olvera ordered to prevent skin breakdown. PT did a SLUMS and he is . Exam Vital Signs (past 8 hours): - 09/25/23 09:00 09/25/23 10:22 09/25/23 11:40 Temperature 98.7 F 97.6 F Pulse Rate 65 65 Pulse Rate [Orthostatic Lying] 66 Pulse Rate [Orthostatic Sitting] 72 Pulse Rate [Orthostatic Standing] 97 H Respiratory Rate 16 19 Blood Pressure 110/64 117/69 Blood Pressure [Orthostatic Lying] 112/61 Blood Pressure [Orthostatic Sitting] 120/99 H Blood Pressure [Orthostatic Standing] 117/66 Pulse Oximetry 98 96 Oxygen Flow Rate 0 09/25/23 13:00 09/25/23 14:09 09/25/23 15:00 Temperature 98.2 F 98.2 F Pulse Rate 67 Pulse Rate [Orthostatic Lying] 101 H Pulse Rate [Orthostatic Sitting] 96 H Pulse Rate [Orthostatic Standing] 85 Respiratory Rate 18 18 Blood Pressure 145/70 H 145/70 H Blood Pressure [Orthostatic Lying] 134/69 Blood Pressure [Orthostatic Sitting] 133/66 Blood Pressure [Orthostatic Standing] 87/55 L Pulse Oximetry 96 96 Oxygen Flow Rate Oxygen Delivery Method Room Air Oxygen Flow Rate 0 Narrative Exam Narrative: GEN: Elderly male, very pleasant, Alert and oriented x 3, NAD HEENT:NC, Face symmetric CHEST: Respiratory excursions symmetric, CTAB CV: RRR, no M/R/G ABD: Soft, NT/ND, BT present in all 4 quadrants, no organomegaly or masses EXTR: warm, well perfused, no C/C/E SKIN: warm and dry, no rash, left index finger wrapped in guaze, L middle finger with small black area beneath fingernail NEURO: Alert and oriented x 3, nonfocal Objective Labs 09/25/23 05:25 09/25/23 05:25 Labs: Laboratory Results - last 24 hr 09/25/23 05:25 WBC 6.1 RBC 3.99 L Hgb 13.1 L Hct 37.9 L MCV 95.2 MCH 32.8 MCHC 34.5 RDW 14.9 H Plt Count 148 L Neut % (Auto) 61.4 Lymph % (Auto) 21.1 L Andrews % (Auto) 11.5 Eos % (Auto) 5.3 H Baso % (Auto) 0.7 Neut # (Auto) 3800 Lymph # (Auto) 1300 Andrews # (Auto) 700 Eos # (Auto) 300 Baso # (Auto) 0 Sodium 137 Potassium 3.6 Chloride 104 Carbon Dioxide 28 BUN 7 L Creatinine 0.59 L Estimated GFR > 60 BUN/Creatinine Ratio 11.9 Glucose 91 Calcium 9.0 Magnesium 1.4 L PFSH Medical History Hypotension Protein calorie malnutrition History of prostate cancer Seizure Thrombocytopenia Macrocytosis Alcoholic pancreatitis GERD (gastroesophageal reflux disease) Combined hyperlipidemia Falls frequently Intraparenchymal hemorrhage of brain Essential tremor Fatty liver Concussion Right fibular fracture Surgical History Status post radical cystoprostatectomy Status post colonoscopy S/P total hip arthroplasty Family History Father Prostate cancer Kidney problem Mother Old age Social History household members: spouse Smoking Status: Former smoker Tobacco: How many years used: 50 second hand exposure: No alcohol intake: current substance use type: does not use Assessment & Plan Assessment & Plan narrative: # recurrent syncope -patient has had multiple hospitalizations for syncope, was profoundly orthostatic in ED with 60 point systolic drop when standing -CT head and EKG negative -qshift orthostatics -given 2L IVF bolus -increase from 2.5 to 5mg midodrine TID and continue fludrocortisone 0.2mg daily -last echo in Jun 2023 was reassuring with EF 60-65% -tele -abominal binder and compression stockings -PT/OT eval rec home with assist vs SNF -olvera placed to prevent patient having to get up, has difficulty with handheld urinal -patient may have to be wheelchair bound if his profound orthostasis continues despite medical management # 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 DVT prophylaxis with Lovenox. Proxy is . I have reviewed home meds and used all available resources to reconcile the home meds. Dispo: Pending OR course for finger and improvement in orthostasis. 2-3 days. May need repeat SNF.
[2023-09-25] MEDS: ATORVASTATIN 20 MG TABLET 80 MG PO (20:45)
[2023-09-25] MEDS: SENNOSIDES 8.6 MG TABLET 17.2 MG PO (20:46)
[2023-09-26] VITALS (8 sets, daily range): BP systolic 89–152; BP diastolic 53–80; PULSE 61–99; RESP 16; TEMP 35.8–36.6; O2SAT 94–99
[2023-09-26] MEDS: CEFAZOLIN 2 GM/100 ML PREMIX 100 ML IV ×3 (00:20→17:25)
[2023-09-26] MEDS: PANTOPRAZOLE DR 20 MG TABLET PO (05:01)
[2023-09-26 05:15] LABS: Add Manual Diff / Slide Review NO; Basophils Absolute Auto 0 /uL (0-100); Basophils Percent Auto 0.9 % (0-2); Eosinophils Absolute Auto 400 /uL (0-450); Hematocrit 34.8 % (41-53); Hemoglobin 11.8 g/dL (13.5-17.5); Lymphocytes Absolute Auto 1400 /uL (1100-4500); Lymphocytes Percent Auto 31.3 % (25-40); Mean Corpuscular Hemoglobin 32.6 PG (26-34); Mean Corpuscular Volume 95.7 fL (80-100); Monocytes Absolute Auto 600 /uL (0-900); Monocytes Percent Auto 13.9 % (3-14); Neutrophils Absolute Auto 2100 /uL (1500-7000); Neutrophils Percent Auto 44.9 % (50-75); Platelet Count 141 X10^3/uL (150-400); Red Blood Cell Count 3.63 X10^6/uL (4.5-5.9); Red Cell Distribution Width 15.1 % (11.6-14.8); White Blood Cell Count 4.6 X10^3/uL (4.5-11.0)
[2023-09-26 05:28] LABS: BUN Creatinine Ratio 11.5 (6-22); Blood Urea Nitrogen 7 mg/dL (9-20); Calcium 8.7 mg/dL (8.4-10.2); Carbon Dioxide 29 mmol/L (22-32); Chloride 104 mmol/L (98-107); Estimated Glomerular Filt Rate > 60 mL/min (>60); Glucose 95 mg/dL (80-110); HEMOLYSIS < 15 (0-50); Magnesium 1.8 mg/dL (1.6-2.3); Potassium 3.1 mmol/L (3.4-5.1); Sodium 136 mmol/L (137-145)
--- NOTE | 2023-09-26 08:45 | PT.IPTN ---
Current Diagnoses Gangrene, not elsewhere classified (09/23/23) Syncope and collapse (09/23/23) Surgery Performed Operation Date: 09/24/23 17:15 Actual Procedures p Index Finger Amputation(Left) - Alberto Nava MD Physical Therapy Treatment Note M2 PT-IP Current Condition Start: 09/24/23 11:50 Freq: NEEDED Status: Active Protocol: Document 09/24/23 09:35 AB (Rec: 09/24/23 12:06 AB [id number]) Physical Therapy Current Condition Current Condition Evaluation Date 09/24/23 Treatment Diagnosis syncope; difficulty in walking Onset Date 09/23/22 M3 PT-IP Subjective Start: 09/24/23 11:50 Freq: NEEDED Status: Active Protocol: Document 09/26/23 09:06 TS (Rec: 09/26/23 09:33 TS [id number]) Subjective Physical Therapy Visit Type Type Treatment Note Visit Start Time 08:45 Visit Stop Time 09:00 Total Visit Minutes 15 Number of PROGRAM FACILITATOR Visits 2 Physical Therapy Visit Comments Patient Comments Pt found resting in chair, is agreeable to PT. M4 PT-IP Mobility and Gait Start: 09/24/23 11:50 Freq: NEEDED Status: Active Protocol: Document 09/26/23 09:06 TS (Rec: 09/26/23 09:33 TS [id number]) PT-Transfer Assessment Sit to and From Stand Sit to and from Stand Standby Assistance,Use of Upper Extremities Equipment Transfer Assistive Device Gait Belt,Front Wheeled Walker Orthotic/Prosthetic Devices or Brace: No Comments Mobility Comments Pt found sitting in chair, BP in sitting 94/63, pt denied any dizziness, or lightheadedness. He performed sit to stand from chair with BUE support pushing from arms of chair and use of FWW. BP taken in standing 78/41. Pt sat back in chair, pt stated maybe some lightheadedness but was not sure. RN entered room, was notified of low BP, asked therpaist to discuss with hospitalist before getting pt up. Per hospitalist hold therapy for pt at this time until further notice. pt was left back in chair, alarm on, RN in room. Gait Assessment Comments Gait Comments Not at this time PT-Balance Assessment Sitting Balance and Reactions Static Sitting Balance Ability Good Dynamic Sitting Balance Ability Good Standing Balance and Reactions Static Standing Balance Ability Good Dynamic Standing Balance Ability Fair Device Used FWW M5 PT-IP Objective Assessments Start: 09/24/23 11:50 Freq: NEEDED Status: Active Protocol: Document 09/24/23 09:35 AB (Rec: 09/24/23 12:06 AB [id number]) Orientation Orientation/Cognition Level of Alertness Alert Orientation Name,Place,Situation Language Function Ability No Deficits Noted Safety Awareness Decreased Safety Awareness Memory Description No Deficits Noted Gross Range of Motion Lower Extremity ROM Assessment Within Functional Limits Strength Lower Extremity Strength Assessment Within Functional Limits Muscle Tone Muscle Tone WNL Yes M6 PT-IP Treatment Start: 09/24/23 11:50 Freq: NEEDED Status: Active Protocol: Document 09/26/23 09:06 TS (Rec: 09/26/23 09:33 TS [id number]) Physical Therapy Treatment Education Education Provided Safety M7 PT-IP Assessment and Plan Start: 09/24/23 11:50 Freq: NEEDED Status: Active Protocol: Document 09/26/23 09:06 TS (Rec: 09/26/23 09:33 TS [id number]) PT Summary Assessment and Plan Potential Rehabilitation Potential Fair Summary Impairments Pain,ROM,Strength,Balance, Coordination,Sensation,Tone, Cognition,Bed Mobility, Transfers,Gait,Activity Tolerance Progress Towards Goals Slow Progress due to Medical Issues Assessment Summary Ac is making slow progress with his mobility due to ongoing hypotension. He performed sit to stand SBA with FWW from chair, demonstrated good carryover of sequencing. In standing pt's BP decreases to 78/41 from 94/ 63 in sitting. Pt is unsure if he is having any symptoms of orthostatic hypotension. From yesterday's PT session and this morning, pt appears at his baseline. PT is recommending pt return home with 07/04 assist and HHPT for safety due to pt's hypotension and history of falls. Pt would benefit from continued therapy to improve dynamic balance. Goals Bed Mobility Goal Independent Transfer Goal Independent,Front Wheeled Walker Gait Goal Independent,Front Wheel Walker Gait Distance 100 Other Goals improve ambulation using FWW ~ 200 ft mod I up/down 2 steps L wall SBA Days to Meet Goals 10 Frequency of Treatment Frequency Of Treatment Once a Day Treatment Plan Physical Therapy Treatment Plan Bed Mobility Training,Transfer Training,Gait Training, Therapeutic Exercise,Balance Retraining,Discharge Planning, Hot or Cold Pack,Neuromuscular Re-ed,Coordination Retraining ,Manual Therapy Precautions Other Precautions BP Recommendations To Nursing Amount of Assist Needed 1 Person Assist Discharge Recommendations PT Discharge Recommendations Home with 07/04 Assist Available,Home Health Transportation Needs at Discharge Private Vehicle
[2023-09-26] MEDS: ENOXAPARIN 40 MG/0.4 ML SYRINGE SUBCUT (08:55)
[2023-09-26] MEDS: polyethylene glycoL 3350 17 GM POWD.PACK PO (08:55)
[2023-09-26] MEDS: MIDODRINE HCL 5 MG TABLET PO (08:55)
[2023-09-26] MEDS: POTASSIUM CHLORIDE 20 MEQ TAB 40 MEQ PO ×2 (08:56→15:50)
[2023-09-26] MEDS: ASPIRIN EC 81 MG TABLET PO (08:56)
[2023-09-26] MEDS: levETIRAcetam 250 MG TABLET 500 MG PO ×2 (08:56→20:59)
[2023-09-26] MEDS: SODIUM CHLORIDE 0.9% FLUSH 10 ML IV ×2 (08:59→21:01)
[2023-09-26] MEDS: FLUDROCORTISONE 0.1 MG TABLET 0.2 MG PO (08:59)
[2023-09-26] MEDS: DOCUSATE 100 MG CAPSULE PO ×2 (09:00→20:59)
[2023-09-26] MEDS: SODIUM CHLORIDE 1,000 MG TABLET 1000 MG PO ×3 (10:57→17:25)
[2023-09-26] MEDS: SODIUM CHLORIDE 0.9% 1,000 ML 150 ML IV ×2 (10:57→17:26)
--- NOTE | 2023-09-26 11:17 | PM.PNPO.1 ---
Subjective Subjective Date Patient Seen: 09/26/23 Time Patient Seen: 11:17 Interval history: Ac is lying in bed comfortably, denies pain in his hand. Exam Vital Signs (past 8 hours): - 09/26/23 05:00 09/26/23 07:56 09/26/23 08:23 Temperature 96.9 F L 96.5 F L Pulse Rate 65 68 Pulse Rate [Orthostatic Lying] 68 Pulse Rate [Orthostatic Sitting] 71 Pulse Rate [Orthostatic Standing] 99 H Respiratory Rate 16 16 Blood Pressure 132/75 126/72 Blood Pressure [Orthostatic Lying] 126/72 Blood Pressure [Orthostatic Sitting] 136/68 Blood Pressure [Orthostatic Standing] 89/61 L Pulse Oximetry 96 99 Oxygen Flow Rate 0 0 Oxygen Delivery Method Room Air Oxygen Flow Rate 0 Narrative Exam Narrative: Dressing dry and intact, wiggles fingers, sensation to touch intact in fingers and hand. Cultures have grown GPC, S aureus; sensitivities pending. Objective Labs 09/26/23 05:01 09/26/23 05:01 Labs: Laboratory Results - last 24 hr 09/26/23 05:01 WBC 4.6 RBC 3.63 L Hgb 11.8 L Hct 34.8 L MCV 95.7 MCH 32.6 MCHC 34.0 RDW 15.1 H Plt Count 141 L Neut % (Auto) 44.9 L Lymph % (Auto) 31.3 [place] % (Auto) 13.9 Eos % (Auto) 9.0 H Baso % (Auto) 0.9 Neut # (Auto) 2100 Lymph # (Auto) 1400 [place] # (Auto) 600 Eos # (Auto) 400 Baso # (Auto) 0 Sodium 136 L Potassium 3.1 L Chloride 104 Carbon Dioxide 29 BUN 7 L Creatinine 0.61 L Estimated GFR > 60 BUN/Creatinine Ratio 11.5 Glucose 95 Calcium 8.7 Magnesium 1.8 PFSH Medical History Hypotension Protein calorie malnutrition History of prostate cancer Seizure Thrombocytopenia Macrocytosis Alcoholic pancreatitis GERD (gastroesophageal reflux disease) Combined hyperlipidemia Falls frequently Intraparenchymal hemorrhage of brain Essential tremor Fatty liver Concussion Right fibular fracture Surgical History Status post radical cystoprostatectomy Status post colonoscopy S/P total hip arthroplasty Family History Father Prostate cancer Kidney problem Mother Old age Social History household members: spouse Smoking Status: Former smoker Tobacco: How many years used: 50 second hand exposure: No alcohol intake: current substance use type: does not use Assessment & Plan Post-op Assessment and plan (1) Finger necrosis: Assessment and Plan narrative: 1) Patient is currently admitted to medicine for recurrent falls. Does not need to remain admitted for his finger. Further care at the discretion of the hospitalist 2) Maintain wound dressing until follow up with our clinic in 2 weeks. Nylon sutures in place should be removed at that time. If dressing does become dirty, can clean incision w/ sterile water and peroxide and replace w/ xeroform and gauze. 3) Continue Ancef (or appropriate abx when sensitivities return )during this admission. Transition to oral antibiotics at time of discharge for prophylaxis against infection. At the time of surgery, there were no obvious abscess sites within the finger however recommend prophylactic antibiotics for at least a week. Postoperative Procedures: Procedures Operation Date: 09/24/23 17:15 Actual Procedure Side Surgeon p Index Finger Amputation Left Alberto Nava MD Postoperative day: 2
[2023-09-26] MEDS: MIDODRINE HCL 5 MG TABLET 10 MG PO ×2 (12:00→15:50)
--- NOTE | 2023-09-26 12:40 | OT.IP.TRT ---
Current Diagnoses Gangrene, not elsewhere classified (09/23/23) Syncope and collapse (09/23/23) Surgery Performed Operation Date: 09/24/23 17:15 Actual Procedures p Index Finger Amputation(Left) - Alberto Nava MD Occupational Therapy Treatment Note M2 OT-IP Current Condition Start: 09/24/23 14:59 Freq: Status: Active Protocol: Document 09/24/23 14:20 [facility] (Rec: 09/24/23 15:22 [facility] [id number]) Occupational Therapy Current Condition Current Condition Evaluation Date 09/24/23 Treatment Diagnosis Syncope, hypomagnesium M3 OT- IP Subjective and Pain Start: 09/24/23 14:59 Freq: Status: Active Protocol: Document 09/26/23 12:48 [facility] (Rec: 09/26/23 12:59 [facility] [id number]) OT- Subjective Occupational Therapy Visit Type Type Treatment Note Visit Start Time 12:15 Visit Stop Time 12:41 Total Visit Minutes 26 Occupational Therapy Visit Comments Patient Comments Pt agreed to get up. Patient/Caregiver Goals Pt wanting to go home. Pt realizes pt's would like him to go to skilled rehab. OT Pain Assessment Pain When Pain Assessed During Mobility Pain Present Pain Present Pain Reported Location left hand Pain Behaviors Facial Grimacing,Guarding M4 OT- IP ADL's Start: 09/24/23 14:59 Freq: Status: Active Protocol: Document 09/26/23 12:48 [facility] (Rec: 09/26/23 12:59 [facility] [id number]) OT [id number] Comments OT Self-Feeding Comments Pt needing assist for set-up. OT ADL-Grooming Comments OT Grooming Comments Pt needing assist for set-up. OT ADL-Dressing General Eval Lower Body Dressing Ability Maximum Assistance OT ADL-Toileting General Evaluation Toileting Ability Maximum Assistance Areas Needing Assistance Manage Clothing Comments OT Toileting Comments Assist for brief management needs. Pt having an external catheter in place. Pt not aware that it was an external catheter versus internal catheter. Pt agreed that he will try to sit to urinate from now on and use the wc in the house. OT ADL-Bathing Comments OT Bathing Comments Pt agreed that he will now be using the walk in tub at home and sit for showering needs. M5 OT- IP IADL's Start: 09/24/23 14:59 Freq: Status: Active Protocol: Document 09/25/23 13:57 [facility] (Rec: 09/25/23 14:20 [facility] [id number]) OT-Instrumental Activities of Daily Living Home Safety Awareness Home Safety Comments Pt states prior at home has caregivers to assist but not anyone there 07/04 assist to help besides his . M6 OT- IP Functional Cognition Start: 09/24/23 14:59 Freq: Status: Active Protocol: Document 09/26/23 12:48 [facility] (Rec: 09/26/23 12:59 [facility] [id number]) Cognitive Factors Limiting Selfcare Function Cognitive Comments Cognitive Assessment Comments Pt able to follow commands and at least today states to try to sit to urinate and to sit fro showering needs at home. Pt states does drink 2 whiskeys daily and only has two meals a day. M7 OT- IP Mobility and Balance Start: 09/24/23 14:59 Freq: Status: Active Protocol: Document 09/26/23 12:48 [facility] (Rec: 09/26/23 12:59 [facility] [id number]) OT- Bed Mobility Assessment Supine to Sit Supine to Sit Assist Minimal Assistance Sit to Supine Sit to Supine Assist Standby Assistance OT-Transfer Assessment Sit to and From Stand Sit to and from Stand Contact Guard Assistance, Minimal Assistance Comments Mobility Comments EUGENIA to get to the edge of the bed. CGA/EUGENIA to stand and needing use hold the FWW in place for the pt. BP Supine 123/70, sitting 131/ 63, standing 124/67, sitting 117/53 and supine 124/65. OT- Balance Assessment Sitting Balance and Reactions Static Sitting Balance Ability Good Dynamic Sitting Balance Ability Good Standing Balance and Reactions Static Standing Balance Ability Good M8 OT- IP Objective Assessments Start: 09/24/23 14:59 Freq: Status: Active Protocol: Document 09/24/23 14:20 [facility] (Rec: 09/24/23 15:22 [facility] [id number]) OT Strength Comments Strength Comments WFL except for left index finger M9 OT- IP Assessment and Plan Start: 09/24/23 14:59 Freq: Status: Active Protocol: Document 09/26/23 12:48 [facility] (Rec: 09/26/23 12:59 [facility] [id number]) OT Summary Assessment and Plan Potential Rehabilitation Potential Good Analytic Complexity at Evaluation Moderate Summary OT Impairments Pain,Range of Motion,Strength, Balance,Functional Mobility, Grooming,Dressing,Toileting, Bathing,Toilet Transfers, Shower Transfers Progress Towards Goals Slow Progress due to Medical Issues Assessment Summary Pt having more awareness today to be able to sit for needs especially for toileting and showering needs. Pt still struggles to get to the edge of the bed and would benefit from continued therapy either skilled rehab or home health to work on his core strengthening and dynamic balance needs. Pt's BP today much better. Pt to skilled rehab versus home with 24/7 assist and home health. Goals Self-Feeding Goal Standby Assistance Grooming Goal Standby Assistance Dressing Goal Minimal Assistance Toileting Goal Standby Assistance Bathing Goal Minimal Assistance Toilet Transfer Goal Independent Shower Transfer Goal Independent Days to Meet Goals 14 Frequency of Treatment Frequency Of Treatment Once a Day Treatment Plan OT Treatment Plan ADL Training,Functional Mobility,Patient/Family Education,Discharge Planning Discharge Recommendations OT Discharge Recommendations Home with 24/7 Assist Available,Home Health,SNF Rehab,Home vs SNF Transportation Needs at Discharge Private Vehicle,Wheelchair/ Cabulance
--- NOTE | 2023-09-26 13:27 | CM.DPNOTE ---
Addendum entered by DONTAE Rdz 09/26/23 16:20: INSULATION EXTRUDER OPERATOR met with pt and spouse at bedside. Spouse open to [facility] dc tomorrow. INSULATION EXTRUDER OPERATOR will coordinate with [facility] admission first thing in am. SL Original Note: DCP Note INSULATION EXTRUDER OPERATOR reviewed EMR. Per provider, changing some BP meds to try and raise BP. SNF vs Home with caregivers tomorrow. INSULATION EXTRUDER OPERATOR spoke with Micki at [facility], can take pt and have an auth from his insurance. Can take pt tomorrow. No time arranged yet. INSULATION EXTRUDER OPERATOR completed PASRR. INSULATION EXTRUDER OPERATOR entered room and introduced self and role. Pt sitting up in bed. Pt reports hesitant about dc to [facility] again but not entirely opposed. Pt agreeable to this INSULATION EXTRUDER OPERATOR coordinating the dcp with spouse as well. INSULATION EXTRUDER OPERATOR spoke with spouse Margarita (p [phone]). Spouse can't leave home at the moment due to their hot water going out and waiting for a wood cut engraver to come fix it due to freezing temps outside. Spouse reports preference is [facility] and not home. Spouse had medical questions about infection/BP meds. INSULATION EXTRUDER OPERATOR directed her to his RN for more answers to medical questions. Plan: pending pt preference either 1) dc to [facility] tomorrow 09.27.23 or 2) dc home with spouse and caregiver support. CM team will continue to follow closely. DONTAE Rdz
--- NOTE | 2023-09-26 16:17 | PC.NURSE ---
Addendum entered by Magalis Galvan R.N. 09/26/23 17:08: Spoke with ortho PA Mariela Paz about changing patient's dressing. She ok'ed dressing change and referred this RN to her progress note for wound dressing change instructions. Removed old dressing, cleaned with sterile NS, applied xeroform, gauze wrap, then finger splint, then lizabeth wrap per instructions. Pt tolerated well. Will continue to monitor. Original Note: Day shift: Patient continues to experience orthostatic hypotension with no symptoms. Pt accidentally pulled out his Munoz cathetar at some point overnight - when this RN came in patient's room to assess at 0800, Munoz was out and on his bed. Placed condom cathetar - ok'ed by MD Newsome. Turned [id number]. NS @ 150mL/hr. Will continue to monitor.
--- NOTE | 2023-09-26 17:25 | P.PN_ITS ---
Subjective Subjective Interval history: Patient doing well and has no complaints. Still orthostatic early this morning so midodrine raised to 10mg TID. His noon orthostatics were negative. wants him to go back to SNF. HIDE AND SKIN FLESHING MACHINE OPERATOR arranged for [facility] tomorrow. Wound cultures from finger with staph aureus. Exam Vital Signs (past 8 hours): - 09/26/23 12:40 09/26/23 13:00 09/26/23 17:00 Temperature 97.0 F L 97.0 F L Pulse Rate 61 61 Respiratory Rate 16 16 Blood Pressure 152/80 H 140/67 Blood Pressure [Orthostatic Lying] 124/65 Blood Pressure [Orthostatic Sitting] 117/53 L Blood Pressure [Orthostatic Standing] 124/67 Pulse Oximetry 94 94 Oxygen Delivery Method Room Air Oxygen Flow Rate 0 Narrative Exam Narrative: GEN: Elderly male, very pleasant, Alert and oriented x 3, NAD HEENT:NC, Face symmetric CHEST: Respiratory excursions symmetric, CTAB CV: RRR, no M/R/G ABD: Soft, NT/ND, BT present in all 4 quadrants, no organomegaly or masses EXTR: warm, well perfused, no C/C/E SKIN: warm and dry, no rash, left index finger wrapped in guaze, L middle finger with small black area beneath fingernail NEURO: Alert and oriented x 3, nonfocal Objective Labs 09/26/23 05:01 09/26/23 05:01 Labs: Laboratory Results - last 24 hr 09/26/23 05:01 WBC 4.6 RBC 3.63 L Hgb 11.8 L Hct 34.8 L MCV 95.7 MCH 32.6 MCHC 34.0 RDW 15.1 H Plt Count 141 L Neut % (Auto) 44.9 L Lymph % (Auto) 31.3 [place] % (Auto) 13.9 Eos % (Auto) 9.0 H Baso % (Auto) 0.9 Neut # (Auto) 2100 Lymph # (Auto) 1400 [place] # (Auto) 600 Eos # (Auto) 400 Baso # (Auto) 0 Sodium 136 L Potassium 3.1 L Chloride 104 Carbon Dioxide 29 BUN 7 L Creatinine 0.61 L Estimated GFR > 60 BUN/Creatinine Ratio 11.5 Glucose 95 Calcium 8.7 Magnesium 1.8 ON LICENSE OF [facility] Medical History Hypotension Protein calorie malnutrition History of prostate cancer Seizure Thrombocytopenia Macrocytosis Alcoholic pancreatitis GERD (gastroesophageal reflux disease) Combined hyperlipidemia Falls frequently Intraparenchymal hemorrhage of brain Essential tremor Fatty liver Concussion Right fibular fracture Surgical History Status post radical cystoprostatectomy Status post colonoscopy S/P total hip arthroplasty Family History Father Prostate cancer Kidney problem Mother Old age Social History household members: spouse Smoking Status: Former smoker Tobacco: How many years used: 50 second hand exposure: No alcohol intake: current substance use type: does not use Assessment & Plan Assessment & Plan narrative: # recurrent syncope due to orthostatic hypotension -patient has had multiple hospitalizations for syncope, was profoundly orthostatic in ED with 60 point systolic drop when standing -CT head and EKG negative -qshift orthostatics -given 2L IVF bolus -increase from 2.5 to 5mg midodrine TID and continue fludrocortisone 0.2mg daily -last echo in Jun 2023 was reassuring with EF 60-65% -tele -abominal binder and compression stockings -PT/OT eval rec home with assist vs SNF -increased midodrine on 09/26 to 10mg and orthostatics improving # 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 DVT prophylaxis with Lovenox. Proxy is . I have reviewed home meds and used all available resources to reconcile the home meds. Dispo: Accepted to SNF for dc on 09/27.
[2023-09-26] MEDS: ATORVASTATIN 20 MG TABLET 80 MG PO (20:59)
[2023-09-26] MEDS: SENNOSIDES 8.6 MG TABLET 17.2 MG PO (20:59)
[2023-09-27] MEDS: CEFAZOLIN 2 GM/100 ML PREMIX 100 ML IV ×2 (00:12→08:16)
[2023-09-27 00:16] VITALS: BP 155/67; PULSE 62; RESP 15; TEMP 36.1; O2SAT 95
[2023-09-27 04:00] VITALS: BP 119/69; PULSE 62; RESP 17; TEMP 36.3; O2SAT 94
[2023-09-27 05:10] LABS: Add Manual Diff / Slide Review NO; Basophils Absolute Auto 0 /uL (0-100); Basophils Percent Auto 1.1 % (0-2); Eosinophils Absolute Auto 400 /uL (0-450); Eosinophils Percent Auto 9.9 % (2-4); Hematocrit 32.6 % (41-53); Hemoglobin 11.2 g/dL (13.5-17.5); Lymphocytes Absolute Auto 1700 /uL (1100-4500); Lymphocytes Percent Auto 38.6 % (25-40); Mean Corpuscular HGB Conc 34.2 % (30-36); Mean Corpuscular Hemoglobin 32.9 PG (26-34); Mean Corpuscular Volume 96.1 fL (80-100); Monocytes Absolute Auto 500 /uL (0-900); Monocytes Percent Auto 12.6 % (3-14); Neutrophils Absolute Auto 1600 /uL (1500-7000); Neutrophils Percent Auto 37.8 % (50-75); Platelet Count 131 X10^3/uL (150-400); Red Blood Cell Count 3.39 X10^6/uL (4.5-5.9); White Blood Cell Count 4.3 X10^3/uL (4.5-11.0)
[2023-09-27 05:22] LABS: BUN Creatinine Ratio 11.5 (6-22); Blood Urea Nitrogen 7 mg/dL (9-20); Calcium 8.7 mg/dL (8.4-10.2); Carbon Dioxide 28 mmol/L (22-32); Chloride 107 mmol/L (98-107); Estimated Glomerular Filt Rate > 60 mL/min (>60); Glucose 86 mg/dL (80-110); HEMOLYSIS < 15 (0-50); Potassium 3.2 mmol/L (3.4-5.1); Sodium 137 mmol/L (137-145)
[2023-09-27] MEDS: PANTOPRAZOLE DR 20 MG TABLET PO (06:03)
[2023-09-27 07:15] LABS: Magnesium 1.4 mg/dL (1.6-2.3)
--- NOTE | 2023-09-27 07:36 | PM.PNPO.1 ---
Subjective Subjective Interval history: Ac is an 83 year old male who is lying in bed comfortably, denies pain in his hand or left 2nd finger. States he would like to be d/c today. Denies chest pain, SOB, fever, chills. Exam Vital Signs (past 8 hours): - 09/27/23 00:16 09/27/23 04:00 Temperature 97.0 F L 97.3 F L Pulse Rate 62 62 Respiratory Rate 15 17 Blood Pressure 155/67 H 119/69 Pulse Oximetry 95 94 Oxygen Delivery Method Room Air Oxygen Flow Rate 0 Narrative Exam Narrative: Dressing dry and intact over left 2nd finger, moderate swelling to the surrounding fingers, wiggles fingers, sensation to touch intact in fingers and hand. Cultures have grown GPC, S aureus; sensitivities pending. Objective Labs 09/27/23 04:53 09/27/23 04:53 Labs: Laboratory Results - last 24 hr 09/27/23 04:53 WBC 4.3 L RBC 3.39 L Hgb 11.2 L Hct 32.6 L MCV 96.1 MCH 32.9 MCHC 34.2 RDW 15.0 H Plt Count 131 L Neut % (Auto) 37.8 L Lymph % (Auto) 38.6 [place] % (Auto) 12.6 Eos % (Auto) 9.9 H Baso % (Auto) 1.1 Neut # (Auto) 1600 Lymph # (Auto) 1700 [place] # (Auto) 500 Eos # (Auto) 400 Baso # (Auto) 0 Sodium 137 Potassium 3.2 L Chloride 107 Carbon Dioxide 28 BUN 7 L Creatinine 0.61 L Estimated GFR > 60 BUN/Creatinine Ratio 11.5 Glucose 86 Calcium 8.7 Magnesium 1.4 L PFSH Medical History Hypotension Protein calorie malnutrition History of prostate cancer Seizure Thrombocytopenia Macrocytosis Alcoholic pancreatitis GERD (gastroesophageal reflux disease) Combined hyperlipidemia Falls frequently Intraparenchymal hemorrhage of brain Essential tremor Fatty liver Concussion Right fibular fracture Surgical History Status post radical cystoprostatectomy Status post colonoscopy S/P total hip arthroplasty Family History Father Prostate cancer Kidney problem Mother Old age Social History household members: spouse Smoking Status: Former smoker Tobacco: How many years used: 50 second hand exposure: No alcohol intake: current substance use type: does not use Assessment & Plan Post-op Assessment and plan (1) Finger necrosis: Assessment and Plan narrative: 1) Patient is currently admitted to medicine for recurrent falls. Does not need to remain admitted for his finger. Further care at the discretion of the hospitalist 2) Maintain wound dressing until follow up with our clinic in 2 weeks. Nylon sutures in place should be removed at that time. If dressing does become dirty, can clean incision w/ sterile water and peroxide and replace w/ xeroform and gauze. 3) Continue Ancef (or appropriate abx when sensitivities return )during this admission. Transition to oral antibiotics at time of discharge for prophylaxis against infection. At the time of surgery, there were no obvious abscess sites within the finger however recommend prophylactic antibiotics for at least a week. Postoperative Procedures: Procedures Operation Date: 09/24/23 17:15 Actual Procedure Side Surgeon p Index Finger Amputation Left Alberto Nava MD Postoperative day: 3 Postoperative status narrative: Stable
[2023-09-27 08:00] VITALS: BP 144/76; PULSE 68; RESP 19; TEMP 36.6; O2SAT 98
[2023-09-27] MEDS: ENOXAPARIN 40 MG/0.4 ML SYRINGE SUBCUT (08:15)
[2023-09-27] MEDS: SODIUM CHLORIDE 1,000 MG TABLET 1000 MG PO ×2 (08:15→11:37)
[2023-09-27] MEDS: levETIRAcetam 250 MG TABLET 500 MG PO (08:15)
[2023-09-27] MEDS: DOCUSATE 100 MG CAPSULE PO (08:15)
[2023-09-27] MEDS: MIDODRINE HCL 5 MG TABLET 10 MG PO ×2 (08:15→11:37)
[2023-09-27] MEDS: ASPIRIN EC 81 MG TABLET PO (08:15)
[2023-09-27] MEDS: FLUDROCORTISONE 0.1 MG TABLET 0.2 MG PO (08:15)
[2023-09-27] MEDS: POTASSIUM CHLORIDE 20 MEQ TAB 40 MEQ PO (08:16)
[2023-09-27] MEDS: polyethylene glycoL 3350 17 GM POWD.PACK PO (08:16)
[2023-09-27] MEDS: MAGNESIUM CHLORIDE 64 MG TABLET 128 MG PO (08:17)
[2023-09-27] MEDS: SODIUM CHLORIDE 0.9% FLUSH 10 ML IV (08:19)
[2023-09-27] MEDS: AMOXICILLIN/CLAV 875/125 MG 1 TAB PO (09:14)
[2023-09-27 09:23] VITALS: BP 114/57; BP 140/70; PULSE 58; PULSE 89
--- NOTE | 2023-09-27 09:30 | CM.DPNOTE ---
Addendum entered by DONTAE Rdz 09/27/23 10:42: TRUCK ENGINE TECHNICIAN faxed PASRR and signed med list to [employer]. [place] Original Note: DCP Note TRUCK ENGINE TECHNICIAN reviewed EMR. Per provider, cleared to dc to today. TRUCK ENGINE TECHNICIAN spoke with Massiel at . Can take him at 1130. TRUCK ENGINE TECHNICIAN updated coordinator, provider, and RN. Gave RN nursing report number. TRUCK ENGINE TECHNICIAN updated pt, pt in agreement. TRUCK ENGINE TECHNICIAN gave pt IMM. Pt requested this TRUCK ENGINE TECHNICIAN call spouse and update her. TRUCK ENGINE TECHNICIAN spoke with spouse on the phone. Spouse in agreement. Spouse reports will not be here to see him before he dcs because she's still waiting for a lay to fix their hot water. Plan: TRUCK ENGINE TECHNICIAN will fax PASRR and signed med list when made available. CM team will continue to follow closely. DONTAE Rdz
--- NOTE | 2023-09-27 10:27 | P.DS_ITS ---
History of Present Illness History of Present Illness Chief complaint: Necrotic left index finger tip Narrative: Carlos Jansen is an 82yo M with PMH of orthostatic hypotension, remote ICH, previous alcohol use, alcoholic pancreatitis, HLD, fatty liver, GERD, and chronic thrombocytopenia who presents with syncope. Patient has a known history of syncope and orthostatic hypotension. He was just discharged from SNF yesterday back home. He was using the restroom at home and standing to urinate, then walked out of the bathroom and passed out. He doesn't remember what precipitated it. Denies any CP. In the ED patient had orthostasis with a 60 point systolic drop from 180 to 120 when standing. He notes his left index finger has been hurting and is black. Appears gangrenous and hurts with palpation. Ortho consulted in ED and will likely take for distal amputation. Patient denies headache, NV, fever/chills, vertigo, abd pain or diarrhea. FRrom H&P. Discharge Providers Provider Date of admission: 09/23/23 17:36 Discharge Date: 09/27/23 Primary care physician: MELVINA Salguero Consults: 09/23/23 18:35 Consult to Occupational Therapy Evaluate & Treat Comment: Physician Instructions: Evaluate and treat Consult to Physical Therapy Evaluate & Treat Comment: Physician Instructions: Evaluate and Treat 09/23/23 21:15 Consult to Agronomy Supervisor Routine Comment: 09/24/23 18:11 Consult to Discharge Planning Routine Comment: 09/24/23 18:14 Consult to Occupational Therapy Evaluate & Treat Comment: Physician Instructions: Evaluate and treat Discharge provider: Favian Penny MD Summary Hospital Course Discharge Diagnosis: 1. Orthostatic hypotension, improving. 2. 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 3. Possible seizure disorder. 4. Remote subdural hematoma. 5. GERD. Hospital Course: The patient presented with syncope. The patient has a history of known orthostatic hypotension. He had just been discharged from [facility] to home 1 day prior to arrival. He also noted that his left index finger had been hurting and black for some time. Orthopedics was consulted recommended a distal digit amputation for gangrene. The patient was given IV fluids for orthostasis with minimal improving and then uptitrated on midodrine t.i.d. and continued on fludrocortisone daily. He was treated for antibiotics for infection of the finger. Cultures were obtained and sensitivities indicate that Augmentin would likely be reasonable after surgery. His SLUMS score is 19/30. He did have some problems with urinary incontinence periodically. Midodrine was increased to 10 mg TID. He was still orthostatic but relatively asymptomatic on the day of discharge with a standing BP 114/74 and a lying BP of 140/76. His hand was examined by Orthopedics he was felt to be stable for discharge from their perspective. He was enthusiastic about returning to [facility] facility and felt he was strong enough to do so. Culture of the amputated tip grew out staph aureus and Enterococcus faecalis both appear to be sensitive to ampicillin. Pharmacy recommended consideration of Augmentin. Status at Discharge Cognitive/behavioral status at discharge: at baseline, oriented Functional status at discharge: independent ambulation Overall status at discharge: patient is back to baseline Time Spent with Patient Time spent: Greater than 30 minutes Exam Vital Signs (past 8 hours): - 09/27/23 04:00 09/27/23 08:00 09/27/23 09:23 Temperature 97.3 F L 98 F Pulse Rate 62 68 Pulse Rate [Orthostatic Lying] 58 L Pulse Rate [Orthostatic Standing] 89 Respiratory Rate 17 19 Blood Pressure 119/69 144/76 H Blood Pressure [Orthostatic Lying] 140/70 Blood Pressure [Orthostatic Standing] 114/57 L Pulse Oximetry 94 98 Oxygen Flow Rate 0 Oxygen Delivery Method Room Air Oxygen Flow Rate 0 Narrative Exam Narrative: No acute distress, fluent speech. Lungs are clear, normal effort. Heart is regular, no murmur. Abdomen is soft, nondistended. Extremities are free of edema. The left hand is wrapped. Objective Imaging CT angio upper extremity, left.: Radiologist's impression: 1. No stenosis, occlusion, or aneurysm of the visualized arteries of the left upper extremity. The vessels of the left upper extremity appear patent to the level of the digits where visualized. 2. The superficial palmar arch appears intact. The deep palmar arch is not visualized. This may be a congenital absence, although may also be secondary to the limitations of this study. 3. Less than 50% stenosis of the right internal carotid artery where visualized. Approximately 50-69% stenosis of the left internal carotid artery where visualized. If further characterization is warranted, carotid ultrasound could be used. Labs 09/27/23 04:53 09/27/23 04:53 Labs: Laboratory Results - last 24 hr 09/27/23 04:53 WBC 4.3 L RBC 3.39 L Hgb 11.2 L Hct 32.6 L MCV 96.1 MCH 32.9 MCHC 34.2 RDW 15.0 H Plt Count 131 L Neut % (Auto) 37.8 L Lymph % (Auto) 38.6 [place] % (Auto) 12.6 Eos % (Auto) 9.9 H Baso % (Auto) 1.1 Neut # (Auto) 1600 Lymph # (Auto) 1700 [place] # (Auto) 500 Eos # (Auto) 400 Baso # (Auto) 0 Sodium 137 Potassium 3.2 L Chloride 107 Carbon Dioxide 28 BUN 7 L Creatinine 0.61 L Estimated GFR > 60 BUN/Creatinine Ratio 11.5 Glucose 86 Calcium 8.7 Magnesium 1.4 L PFSH Medical History Hypotension Protein calorie malnutrition History of prostate cancer Seizure Thrombocytopenia Macrocytosis Alcoholic pancreatitis GERD (gastroesophageal reflux disease) Combined hyperlipidemia Falls frequently Intraparenchymal hemorrhage of brain Essential tremor Fatty liver Concussion Right fibular fracture Surgical History Status post radical cystoprostatectomy Status post colonoscopy S/P total hip arthroplasty Family History Father Prostate cancer Kidney problem Mother Old age Social History household members: spouse Smoking Status: Former smoker Tobacco: How many years used: 50 second hand exposure: No alcohol intake: current substance use type: does not use Discharge Assessment & Plan Assessment and Plan Assessment: 1. Orthostatic hypotension, improving. 2. 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 3. Possible seizure disorder. 4. Remote subdural hematoma. 5. GERD. Plan of Treatment: The patient will go to [facility] facility for ongoing rehabilitation, monitoring of his orthostatic hypotension on new medication levels. The patient will also have wound care to the left index finger amputation site and complete 7 days of oral antibiotics. He will require follow-up BNP and CBC in approximately 5 days. Discharge Plan Discharge Plan Patient Disposition: SNF Transfer to: [facility] Under care of provider: Dr Contreras Provider Discharge Comment: Stable for discharge, improving orthostatics. Patient is in agreement. Discharge orders & Medications Prescriptions: New midodrine 5 mg Tablet 10 mg PO 0800,1200,1600 Qty: 90 1RF aspirin 81 mg Tablet,Delayed Release (Dr/Ec) 81 mg PO DAILY Qty: 30 1RF potassium chloride [Klor-Con M20] 20 mEq Tablet,Er Particles/Crystals 40 meq PO DAILYCC Qty: 14 0RF amoxicillin-pot clavulanate 875-125 mg Tablet 1 tab PO BID Qty: 14 0RF atorvastatin 20 mg Tablet 80 mg PO BEDTIME Qty: 30 1RF oxycodone 5 mg Tablet 5 mg PO Q4HR PRN (Reason: Pain, Moderate (4-6)) Qty: 20 0RF sodium chloride 1,000 mg Tablet,Soluble 1,000 mg PO TIDWM Qty: 30 0RF Continued omeprazole 20 mg capsule,delayed release(DR/EC) 20 mg PO DAILY Qty: 90 3RF levetiracetam 500 mg tablet 500 mg PO BID Qty: 180 3RF fludrocortisone 0.1 mg tablet 0.2 mg PO DAILY Qty: 180 3RF (DME) Transport Chair See Rx Instructions .Route .MEDSUPPLY Qty: 1 0RF Rx Instructions: Transport Chair. Please fit patient with a chair that will fit his halls and doorways at home. ondansetron HCl 4 mg tablet 4 mg PO Q6HR PRN (Reason: Nausea And Vomiting) Discontinued midodrine 2.5 mg tablet 2.5 mg PO 0600,1200,1800 Qty: 270 3RF Rx Instructions: Take 1 tab 3x/day unless BP >120/80. bacitracin 500 unit/gram Packet 1 applic topical DAILY Qty: 144 0RF Rx Instructions: apply to L index finger then wrap with guaze potassium chloride 20 mEq tablet extended release 20 meq PO DAILYCC Qty: 30 0RF Medication counseling provided by Pharmacist: No Follow up/Referrals: Margarita Stoll ARNP [Primary Care Provider] - Alberto Nava MD [Physician] - 2 Weeks (Follow up w/ Dr Nava or ortho PA in 2 weeks for wound check/suture removal.) Discharge Health Status Multidrug resistant organism: No MDRO Precautions: Contact Diet/Activity/Treatments Diet: Diet as Tolerated Food texture: Regular Skin/Wound/Dressing Care Report to your healthcare provider any signs of infection, such as:: chills, fever, increased pain, unusual drainage and unusual redness Dressing: Maintain wound dressing until follow up with ortho in [address] weeks[address] sutures in place will be removed at that time. If dressing does become dirty, can clean incision w/ sterile water and peroxide and replace w/ xeroform and gauze. Special Rehabilitation Services Reason for rehabilitation: Post-operative therapy Visit Report/Discharge Packet Stand Alone Forms: Patient Portal/API, Surgery Discharge Discharge Data Primary Care Provider: Margarita Stoll MIPS - [place] The patient has a history of heart transplant or Left Ventricular Assist Device (LVAD). If yes, STOP here.: No The patient has current or prior documentation of left ventricular ejection fraction (LVEF) less than or equal to 40%, or moderate or severely depressed left ventricular systolic function.: No
[2023-09-27 11:49] VITALS: BP 104/47
== END 2023-09-27 11:48 | DRG 256 ==
LOC: ED 17:15 → AC 18:14
PROVIDERS: Orthopaedic Surgery Adult Reconstructive Orthopaedic Surgery; Admitting Provider Student in an Organized Health Care Education/Training Program; Emergency Provider Emergency Medicine; PCP Nurse Practitioner; Visit Provider Student in an Organized Health Care Education/Training Program
PROC: 0X6 Anatomical Regions, Upper Extremities, Detachment (ICD-10-PCS; CPT 26951; principal; 2023-09-24 17:15)
DX: I95.1 Orthostatic hypotension (principal); I96 Gangrene, not elsewhere classified; G40.909 Epilepsy, unspecified, not intractable, without status epilepticus; E83.42 Hypomagnesemia; K21.9 Gastro-esophageal reflux disease without esophagitis; B95.7 Other staphylococcus as the cause of diseases classified elsewhere; S62.661A Nondisplaced fracture of distal phalanx of left index finger, initial encounter for closed fracture; X58.XXXA Exposure to other specified factors, initial encounter; Z87.891 Personal history of nicotine dependence; Z66 Do not resuscitate; Z86.73 Personal history of transient ischemic attack (TIA), and cerebral infarction without residual deficits
CPT/HCPCS: 36415; 70450; 71045; 73130; 73206; 80048; 80053; 80320; 82550; 83690; 83735; 84484; 85025; 85610; 85651; 85730; 86140; 87070; 87075; 87077; 87147; 87176; 87185; 87186; 87205; 93005; 93010; 96365; 96366; 97129; 97162; 97166; 97530; 97535; 99284; 99285; J0690; J1650; J2250; J2704; J3475; Q9967

== ENCOUNTER → 2023-11-03 23:19 | Outpatient (ROUT) | payer MEDICARE, SELFPAY ==
[2023-09-23 21:03] VITALS: BMI 25.8
[2023-11-03 23:25] LABS: Appearance Urine UA CLEAR; Bilirubin Urine UA NEGATIVE (NEGATIVE); Color Urine UA YELLOW; Glucose Urine UA NEGATIVE (Negative); Ketones Urine UA NEGATIVE (NEGATIVE); Leukocyte Esterase Urine UA NEGATIVE (NEGATIVE); Nitrite Urine UA NEGATIVE (Negative); Occult Blood Urine UA NEGATIVE (Negative); Protein Urine UA TRACE (Negative); Specific Gravity Urine UA 1.025 (1.000-1.035)
[2023-11-03 23:54] LABS: Bacteria Urine None Seen; Culture Indicated Urine Cult Not Indicated; RBC Urine None Seen (0-5/HPF); Renal Epithelial Cells Urine 0-1/HPF (0-1/HPF); Squamous Epithelial Cell Urine None Seen (0-5/HPF); Urine Volume 10mL (spun); WBC Urine None Seen (0-5/HPF)
== END ==
PROVIDERS: PCP Nurse Practitioner; Visit Provider Nurse Practitioner
DX: N39.0 Urinary tract infection, site not specified (principal)
CPT/HCPCS: 81001

== ENCOUNTER 2023-11-04 07:53 | Inpatient (IN) | payer MEDICARE, SELFPAY ==
[2023-09-23 21:03] VITALS: BMI 25.8
[2023-11-04] VITALS (102 sets, daily range): BP systolic 68–163; BP diastolic 44–69; PULSE 54–164; RESP 14–33; TEMP 35.7–39.8; O2SAT 90–100
--- NOTE | 2023-11-04 08:03 | ED_ITS ---
HPI - Altered Mental Status <Charmaine Reaves, DO - Last Filed: 11/07/23 18:11> General Chief Complaint: Altered Mental Status Stated Complaint: Alt LOC Time Seen by Provider: 11/04/23 08:03 Source: EMS, RN notes reviewed and old records reviewed Mode of arrival: EMS History of Present Illness HPI narrative: 83-year-old male history of prior alcohol abuse, orthostatic hypotension, dyslipidemia, GERD, seizures and prior intracranial hemorrhage presents with report of 2 days of altered mental status, no urine output but also reportedly has suprapubic catheter which is not visualized on exam. Patient is alert, appears very dry, can tell me the year is 2023 believes the is August. Patient denies any pain, denies chest pain or shortness of breath. Denies any nausea or vomiting. Denies any abdominal back or flank pain. Indicates that he has not really had any urine output for the past day or so. Reportedly had a urine catheterization yesterday with very small amount of urine output. Patient indicates he has had a bowel movement in the last couple days. Patient has difficulty giving much more history. He is unable to tell me his home medications. His list from [facility] shows atorvastatin, fludrocortisone, Keppra, midodrine, omeprazole, Zofran, oxycodone and sodium tablets as his home medications. History is former smoker, unclear if there is any persistent alcohol use as he would rehab, no recreational drugs. Primary care is Margarita davison. Review of chart note patient was hospitalized in September of 2023 for necrotic left index tip was seen for syncopal episode which occurs frequently and had a gangrenous appearing digit and was seen by Orthopedic surgery with amputation, discharge back to rehab on Augmentin after tip grew out staph aureus and Enterococcus faecalis both sensitive to ampicillin. Related Data Home Medications Medication Instructions Recorded Confirmed ondansetron HCl 4 mg tablet 4 mg PO Q6HR PRN Nausea And 09/23/23 11/05/23 Vomiting Previous Rx's Medication Instructions Recorded omeprazole 20 mg capsule,delayed 20 mg PO DAILY #90 caps 06/09/23 release levetiracetam 500 mg tablet 500 mg PO BID #180 tabs 07/28/23 fludrocortisone 0.1 mg tablet 0.2 mg (2 x 0.1 mg) PO DAILY #180 08/18/23 tabs Transport Chair #1 ea 08/20/23 aspirin 81 mg tablet,delayed 81 mg PO DAILY #30 tabs 09/27/23 release atorvastatin 20 mg tablet 80 mg (4 x 20 mg) PO BEDTIME #30 09/27/23 tabs midodrine 5 mg tablet 10 mg (2 x 5 mg) PO 0800,1200,1600 09/27/23 #90 tabs oxycodone 5 mg tablet 5 mg PO Q4HR PRN Pain, Moderate 09/27/23 (4-6) #20 tabs potassium chloride 20 mEq 40 meq (2 x 20 mEq) PO DAILYCC #14 09/27/23 tablet,extended tabs release(part/cryst) (Klor-Con M) sodium chloride 1,000 mg soluble 1,000 mg PO TIDWM #30 tabs 09/27/23 tablet amoxicillin 500 mg-potassium 1 tab PO Q12H #20 tabs 11/07/23 clavulanate 125 mg tablet (Augmentin) Allergies Allergy/AdvReac Type Severity Reaction Status Date / Time No Known Allergies Allergy Verified 11/04/23 08:02 Review of Systems <Charmaine Reaves DO - Last Filed: 11/07/23 18:11> Review of Systems ROS Unobtainable: All systems reviewed & are unremarkable except as noted in HPI and below Patient History <Charmaine Reaves DO - Last Filed: 11/07/23 18:11> Medical History Hypotension Protein calorie malnutrition History of prostate cancer Seizure Thrombocytopenia Macrocytosis Alcoholic pancreatitis GERD (gastroesophageal reflux disease) Combined hyperlipidemia Falls frequently Intraparenchymal hemorrhage of brain Essential tremor Fatty liver Concussion Right fibular fracture Surgical History Status post radical cystoprostatectomy Status post colonoscopy S/P total hip arthroplasty Family History Father Prostate cancer Kidney problem Mother Old age Social History household members: spouse Smoking Status: Former smoker Tobacco: How many years used: 50 second hand exposure: No alcohol intake: current substance use type: does not use Smoking Status: Former smoker alcohol intake frequency: 0-2 drinks per day Substance Use Type: does not use Exam <Charmaine Reaves DO - Last Filed: 11/07/23 18:11> Narrative Exam Narrative: GEN: Thin male, alert and oriented to year, location itself, can give some history, speech is very soft spoken, patient appears to be in moderate distress. Patient feels warm to the touch. HEENT: Atraumatic, pupils are equal round reactive to light, extraocular movements are intact, nares are clear, TMs are clear with no fluid, there is no conjunctival pallor. Throat is clear without any exudates, erythema, tonsillar enlargement or uvular deviation, no obvious facial droop. Patient's has very dry mucous membrane. HEART: Tachycardic but Regular rate and rhythm without murmur, clicks, rubs. Pulses are equal in upper and lower extremities LUNGS:Lungs clear to auscultation, no wheezes, rales, crackles, chest moves symmetrically, no tachypnea or accessory muscle ABD:bowel sounds normal, soft, non-tender, nondistended, no guarding, rebound, rigidity, no masses noted, no hepatosplenomegaly, patient is wearing a brief there is a scant amount of dried urine present :No CVA tenderness MSCL: Non-tender, no muscle atrophy, patient has generalized weakness but can lift both legs off the bed, has weakness left compared to right but is globally weak. NEURO:CN 2-12 intact, sensation normal SKIN: Amputated finger appears clean dry and intact with wound healed. Patient has some scabbing over the lower extremities. No rash or skin changes otherwise appreciated. Initial Vital Signs Initial Vital Signs: Vital Signs Pulse Oximetry 90 L 11/04/23 07:56 <Gino Ortiz MD - Last Filed: 11/05/23 05:03> Initial Vital Signs Initial Vital Signs: Vital Signs Pulse Oximetry 90 L 11/04/23 07:56 <Vandana Martinez DO - Last Filed: 11/05/23 08:17> Initial Vital Signs Initial Vital Signs: Vital Signs Pulse Oximetry 90 L 11/04/23 07:56 Scores <Charmaine Reaves DO - Last Filed: 11/07/23 18:11> GCS Alicia coma scale eye opening: Spontaneous Alicia coma scale verbal response: Confused Alicia coma scale motor response: Obey commands [place] coma scale total score: 14 <Gino Ortiz MD - Last Filed: 11/05/23 05:03> GCS Alicia coma scale total score: 14 <Vandana Martinez DO - Last Filed: 11/05/23 08:17> GCS Ailcia coma scale total score: 14 Course <Charmaine Reaves DO - Last Filed: 11/07/23 18:11> Orders Ordered: Discontinued Medications Acetaminophen (Acetaminophen 650 Mg Supp) 650 mg OH NOW ONE Stop: 11/04/23 08:36 Last Admin: 11/04/23 08:50 Dose: 650 mg Documented By: EVELINE Acetaminophen (Acetaminophen 325 Mg Tablet) 650 mg PO Q6H PRN PRN Reason: Fever/Mild Pain (1-3) Heparin Sodium (Porcine) (Heparin 5,000 Unit/Ml Vial) 5,000 unit SUBCUT BID [facility] Last Admin: 11/07/23 11:23 Dose: 5,000 unit Documented By: Admin: 11/06/23 20:09 Dose: 5,000 unit Documented By: Admin: 11/06/23 08:09 Dose: 5,000 unit Documented By: Admin: 11/05/23 20:18 Dose: 5,000 unit Documented By: Admin: 11/05/23 11:21 Dose: 5,000 unit Documented By: LOREN Heparin Sodium (Porcine) (Heparin 5,000 Unit/Ml Vial) 5,000 unit SUBCUT BID [facility] Last Admin: 11/05/23 11:59 Dose: Not Given Documented By: LOREN Hydrocortisone (Hydrocortisone 100 Mg/2 Ml Vial) 100 mg INJ NOW ONE Stop: 11/04/23 11:53 Last Admin: 11/04/23 12:11 Dose: 100 mg Documented By: EVELINE Sodium Chloride (Normal Saline 0.9%) 1,000 mls @ 1,000 mls/hr IV BOLUS ONE Stop: 11/04/23 09:13 Last Infusion: 11/04/23 09:34 Dose: Infused Documented By: Admin: 11/04/23 08:28 Dose: 1,000 mls/hr Documented By: EVELINE POTASSIUM CHLORIDE IN WATER (Potassium Cl 10 Meq/100 Ml Yaa) 10 meq in 100 mls @ 100 mls/hr IV Q1H ANGEL Stop: 11/04/23 12:59 Last Infusion: 11/04/23 16:38 Dose: Infused Documented By: Admin: 11/04/23 15:34 Dose: 100 mls/hr Documented By: Infusion: 11/04/23 14:22 Dose: Infused Documented By: Admin: 11/04/23 13:22 Dose: 100 mls/hr Documented By: Infusion: 11/04/23 13:22 Dose: Infused Documented By: Admin: 11/04/23 12:11 Dose: 100 mls/hr Documented By: Infusion: 11/04/23 10:55 Dose: Infused Documented By: Admin: 11/04/23 09:55 Dose: 100 mls/hr Documented By: CTS Piperacillin Sod/Tazobactam (Sod 4.5 gm/ Sodium Chloride) 100 mls @ 200 mls/hr IV NOW ONE Stop: 11/04/23 08:57 Last Infusion: 11/04/23 10:07 Dose: Infused Documented By: Admin: 11/04/23 09:35 Dose: 200 mls/hr Documented By: CTS Sodium Chloride (Normal Saline 0.9%) 2,442.6 mls @ 814.2 mls/hr 30 ml/kg infuse over 3 hr (2442.6 ml) IV NOW ONE Stop: 11/04/23 11:55 Last Infusion: 11/04/23 12:13 Dose: Infused Documented By: Admin: 11/04/23 09:35 Dose: 814.2 mls/hr Documented By: CTS POTASSIUM CHLORIDE IN WATER (Potassium Cl 10 Meq/100 Ml Yaa) 10 meq in 100 mls @ 100 mls/hr IV Q1H ANGEL Stop: 11/04/23 19:29 Last Infusion: 11/04/23 23:11 Dose: Infused Documented By: Admin: 11/04/23 22:06 Dose: 100 mls/hr Documented By: Infusion: 11/04/23 22:06 Dose: Infused Documented By: Admin: 11/04/23 21:10 Dose: 100 mls/hr Documented By: Infusion: 11/04/23 21:04 Dose: Infused Documented By: Admin: 11/04/23 19:55 Dose: 100 mls/hr Documented By: Infusion: 11/04/23 19:31 Dose: Infused Documented By: Admin: 11/04/23 18:26 Dose: 100 mls/hr Documented By: EVELINE NOREPINEPHRINE BITARTRATE/D5W (Levophed) 4 mg in 250 mls @ 30.533 mls/hr IV TITRATE ANGEL; Protocol Last Admin: 11/05/23 10:23 Dose: Not Given Documented By: LOREN Sodium Chloride (Normal Saline 0.9%) 1,000 mls @ 1,000 mls/hr IV BOLUS ONE Stop: 11/04/23 17:52 Last Infusion: 11/04/23 19:20 Dose: Infused Documented By: Admin: 11/04/23 18:00 Dose: 1,000 mls/hr Documented By: EVELINE Piperacillin Sod/Tazobactam (Sod 4.5 gm/ Sodium Chloride) 100 mls @ 25 mls/hr IV Q8H ANGEL Last Infusion: 11/05/23 06:55 Dose: Infused Documented By: Admin: 11/05/23 02:58 Dose: 25 mls/hr Documented By: Infusion: 11/04/23 23:57 Dose: Infused Documented By: Admin: 11/04/23 19:56 Dose: 25 mls/hr Documented By: KAYE Lactated Ringer's (Lactated Ringers) 1,000 mls @ 200 mls/hr IV CONT ANGEL Last Infusion: 11/05/23 10:44 Dose: Infused Documented By: Admin: 11/05/23 05:47 Dose: 200 mls/hr Documented By: Infusion: 11/05/23 05:47 Dose: Infused Documented By: Admin: 11/05/23 00:56 Dose: 200 mls/hr Documented By: Infusion: 11/05/23 00:55 Dose: Infused Documented By: Admin: 11/04/23 19:56 Dose: 200 mls/hr Documented By: KAYE POTASSIUM CHLORIDE IN WATER (Potassium Cl 10 Meq/100 Ml Yaa) 10 meq in 100 mls @ 100 mls/hr IV Q1H ANGEL Stop: 11/04/23 23:14 Last Admin: 11/04/23 21:52 Dose: Not Given Documented By: RUTH Sodium Chloride (Normal Saline 0.9%) 1,000 mls @ 75 mls/hr IV CONT ANGEL Last Admin: 11/05/23 11:30 Dose: 75 mls/hr Documented By: LOREN Piperacillin Sod/Tazobactam (Sod 3.375 gm/ Sodium Chloride) 100 mls @ 25 mls/hr IV Q8H ANGEL Last Admin: 11/07/23 11:26 Dose: 25 mls/hr Documented By: Infusion: 11/07/23 08:45 Dose: Infused Documented By: Admin: 11/07/23 02:05 Dose: 25 mls/hr Documented By: Infusion: 11/06/23 22:14 Dose: Infused Documented By: Admin: 11/06/23 18:14 Dose: 25 mls/hr Documented By: Infusion: 11/06/23 15:36 Dose: Infused Documented By: Admin: 11/06/23 10:57 Dose: 25 mls/hr Documented By: Infusion: 11/06/23 07:56 Dose: Infused Documented By: Admin: 11/06/23 03:10 Dose: 25 mls/hr Documented By: Infusion: 11/05/23 22:06 Dose: Infused Documented By: Admin: 11/05/23 18:06 Dose: 25 mls/hr Documented By: Infusion: 11/05/23 16:12 Dose: Infused Documented By: Admin: 11/05/23 11:25 Dose: 25 mls/hr Documented By: LOREN Dextrose/Sodium Chloride (Dextrose 5%-0.45% Ns) 1,000 mls @ 100 mls/hr IV CONT [facility] Last Infusion: 11/07/23 15:35 Dose: Infused Documented By: Admin: 11/07/23 05:18 Dose: 100 mls/hr Documented By: Infusion: 11/07/23 05:18 Dose: Infused Documented By: Admin: 11/06/23 19:33 Dose: 100 mls/hr Documented By: Infusion: 11/06/23 19:08 Dose: Infused Documented By: Admin: 11/06/23 09:08 Dose: 100 mls/hr Documented By: Infusion: 11/06/23 09:08 Dose: Infused Documented By: Admin: 11/05/23 23:18 Dose: 100 mls/hr Documented By: Infusion: 11/05/23 22:02 Dose: Infused Documented By: Admin: 11/05/23 12:02 Dose: 100 mls/hr Documented By: LOREN Magnesium Chloride (Magnesium Chloride 64 Mg Tablet) 128 mg PO NOW ONE Stop: 11/06/23 19:01 Last Admin: 11/06/23 19:33 Dose: 128 mg Documented By: Midodrine (Midodrine Hcl 5 Mg Tablet) 10 mg PO 0600,1200,1800 [facility] Last Admin: 11/07/23 12:34 Dose: 10 mg Documented By: Admin: 11/07/23 05:18 Dose: 10 mg Documented By: Admin: 11/06/23 17:26 Dose: 10 mg Documented By: Admin: 11/06/23 11:04 Dose: 10 mg Documented By: Admin: 11/06/23 06:28 Dose: 10 mg Documented By: Admin: 11/05/23 17:41 Dose: 10 mg Documented By: Admin: 11/05/23 11:33 Dose: 10 mg Documented By: Admin: 11/05/23 05:48 Dose: 10 mg Documented By: Admin: 11/04/23 19:56 Dose: 10 mg Documented By: Admin: 11/04/23 12:11 Dose: 10 mg Documented By: EVELINE Morphine Sulfate (Morphine 4 Mg/Ml Inj) 3 mg IV Q2HR PRN PRN Reason: pain (4-6) Naloxone HCl (Naloxone 0.4 Mg/Ml Vial) 0.2 mg IV Q2MIN PRN PRN Reason: Opiate Reversal Naloxone HCl (Naloxone 0.4 Mg/Ml Vial) 0.2 mg IV Q2MIN PRN PRN Reason: Opiate Reversal Ondansetron HCl (Ondansetron 4 Mg/2 Ml Inj) 4 mg IV Q8HR PRN PRN Reason: Nausea And Vomiting Ondansetron HCl (Ondansetron 4 Mg/2 Ml Inj) 4 mg IV Q12H PRN PRN Reason: Nausea And Vomiting Potassium Chloride (Potassium Chloride 20 Meq Tab) 40 meq PO Q6H [facility] Stop: 11/05/23 16:31 Last Admin: 11/05/23 16:12 Dose: 40 meq Documented By: Admin: 11/05/23 11:21 Dose: 40 meq Documented By: LOREN Potassium Chloride (Potassium Chloride 20 Meq/15 Ml Udc) 40 meq PO Q6H ANGEL Stop: 11/06/23 17:01 Last Admin: 11/06/23 17:26 Dose: 40 meq Documented By: Admin: 11/06/23 11:01 Dose: 40 meq Documented By: LOREN Potassium Chloride (Potassium Chloride 20 Meq/15 Ml Udc) 40 meq PO Q6H ANGEL Stop: 11/07/23 01:01 Last Admin: 11/07/23 02:03 Dose: 40 meq Documented By: Admin: 11/06/23 19:32 Dose: 40 meq Documented By: Vital Signs Vital signs: Vital Signs - 8 hr 11/05/23 00:20 11/05/23 00:20 11/05/23 00:30 Temperature 96.8 F L Pulse Rate 55 L Respiratory Rate 17 Blood Pressure 108/56 L 117/57 L Pulse Oximetry 100 Oxygen Delivery Method Oxygen Flow Rate 11/05/23 00:30 11/05/23 00:41 11/05/23 00:41 Temperature 96.8 F L 96.8 F L Pulse Rate 55 L 55 L Respiratory Rate 17 17 Blood Pressure 97/55 L Pulse Oximetry 99 100 Oxygen Delivery Method Oxygen Flow Rate 11/05/23 00:50 11/05/23 00:50 11/05/23 01:00 Temperature 96.8 F L Pulse Rate 57 L Respiratory Rate 17 Blood Pressure 104/55 L 107/59 L Pulse Oximetry 99 Oxygen Delivery Method Oxygen Flow Rate 11/05/23 01:00 11/05/23 01:10 11/05/23 01:10 Temperature 96.8 F L 96.8 F L Pulse Rate 58 L 57 L Respiratory Rate 17 17 Blood Pressure 112/59 L Pulse Oximetry 99 99 Oxygen Delivery Method Oxygen Flow Rate 11/05/23 01:20 11/05/23 01:20 11/05/23 01:30 Temperature 96.8 F L 96.8 F L Pulse Rate 58 L 58 L Respiratory Rate 16 19 Blood Pressure 105/57 L Pulse Oximetry 99 100 Oxygen Delivery Method Nasal Cannula Nasal Cannula Oxygen Flow Rate 3 3 11/05/23 01:31 11/05/23 01:31 11/05/23 01:40 Temperature 96.8 F L 96.8 F L Pulse Rate 68 64 Respiratory Rate 12 17 Blood Pressure 117/65 Pulse Oximetry 100 99 Oxygen Delivery Method Nasal Cannula Nasal Cannula Oxygen Flow Rate 3 3 11/05/23 01:40 11/05/23 01:50 11/05/23 01:50 Temperature 96.8 F L Pulse Rate 60 Respiratory Rate 17 Blood Pressure 119/62 116/58 L Pulse Oximetry 99 Oxygen Delivery Method Nasal Cannula Oxygen Flow Rate 3 11/05/23 02:00 11/05/23 02:00 11/05/23 02:10 Temperature 96.8 F L 97.0 F L Pulse Rate 61 62 Respiratory Rate 12 14 Blood Pressure 110/60 Pulse Oximetry 98 98 Oxygen Delivery Method Nasal Cannula Nasal Cannula Oxygen Flow Rate 3 3 11/05/23 02:10 11/05/23 02:20 11/05/23 02:20 Temperature 97.0 F L Pulse Rate 72 Respiratory Rate 23 Blood Pressure 121/58 L 107/58 L Pulse Oximetry 98 Oxygen Delivery Method Nasal Cannula Oxygen Flow Rate 3 11/05/23 02:30 11/05/23 02:30 11/05/23 02:40 Temperature 97.0 F L Pulse Rate 59 L Respiratory Rate 17 Blood Pressure 107/56 L 105/56 L Pulse Oximetry 98 Oxygen Delivery Method Nasal Cannula Oxygen Flow Rate 3 11/05/23 02:40 11/05/23 02:50 11/05/23 02:50 Temperature 97.0 F L 97.0 F L Pulse Rate 56 L 58 L Respiratory Rate 16 17 Blood Pressure 103/57 L Pulse Oximetry 99 98 Oxygen Delivery Method Nasal Cannula Nasal Cannula Oxygen Flow Rate 3 3 11/05/23 03:00 11/05/23 03:00 11/05/23 03:10 Temperature 97.2 F L Pulse Rate 58 L Respiratory Rate 16 Blood Pressure 109/57 L 104/52 L Pulse Oximetry 99 Oxygen Delivery Method Nasal Cannula Oxygen Flow Rate 3 11/05/23 03:10 11/05/23 03:30 11/05/23 03:30 Temperature 97.2 F L 97.2 F L Pulse Rate 57 L 58 L Respiratory Rate 17 16 Blood Pressure 98/55 L Pulse Oximetry 99 98 Oxygen Delivery Method Nasal Cannula Nasal Cannula Oxygen Flow Rate 3 2 11/05/23 04:00 11/05/23 04:01 11/05/23 04:01 Temperature 97.2 F L 97.2 F L Pulse Rate 62 61 Respiratory Rate 16 17 Blood Pressure 118/60 Pulse Oximetry 99 99 Oxygen Delivery Method Nasal Cannula Nasal Cannula Oxygen Flow Rate 2 2 11/05/23 04:30 11/05/23 04:31 11/05/23 04:31 Temperature 97.2 F L 97.2 F L Pulse Rate 56 L 56 L Respiratory Rate 17 17 Blood Pressure 99/50 L Pulse Oximetry 98 98 Oxygen Delivery Method Oxygen Flow Rate 11/05/23 05:00 11/05/23 05:01 11/05/23 05:01 Temperature 97.2 F L 97.2 F L Pulse Rate 59 L 64 Respiratory Rate 19 18 Blood Pressure 112/59 L Pulse Oximetry 98 99 Oxygen Delivery Method Oxygen Flow Rate 11/05/23 05:30 11/05/23 05:30 11/05/23 06:00 Temperature 97.3 F L 97.5 F L Pulse Rate 60 69 Respiratory Rate 17 22 Blood Pressure 118/56 L Pulse Oximetry 98 99 Oxygen Delivery Method Oxygen Flow Rate 11/05/23 06:00 11/05/23 06:30 11/05/23 06:30 Temperature 97.5 F L Pulse Rate 65 Respiratory Rate 17 Blood Pressure 115/81 123/57 L Pulse Oximetry 99 Oxygen Delivery Method Oxygen Flow Rate 11/05/23 07:00 11/05/23 07:00 Temperature 97.7 F Pulse Rate 59 L Respiratory Rate 17 Blood Pressure 123/59 L Pulse Oximetry 98 Oxygen Delivery Method Oxygen Flow Rate <Gino Ortiz MD - Last Filed: 11/05/23 05:03> Orders Ordered: Discontinued Medications Acetaminophen (Acetaminophen 650 Mg Supp) 650 mg OH NOW ONE Stop: 11/04/23 08:36 Last Admin: 11/04/23 08:50 Dose: 650 mg Documented By: EVELINE Acetaminophen (Acetaminophen 325 Mg Tablet) 650 mg PO Q6H PRN PRN Reason: Fever/Mild Pain (1-3) Heparin Sodium (Porcine) (Heparin 5,000 Unit/Ml Vial) 5,000 unit SUBCUT BID [facility] Last Admin: 11/07/23 11:23 Dose: 5,000 unit Documented By: Admin: 11/06/23 20:09 Dose: 5,000 unit Documented By: Admin: 11/06/23 08:09 Dose: 5,000 unit Documented By: Admin: 11/05/23 20:18 Dose: 5,000 unit Documented By: Admin: 11/05/23 11:21 Dose: 5,000 unit Documented By: LOREN Heparin Sodium (Porcine) (Heparin 5,000 Unit/Ml Vial) 5,000 unit SUBCUT BID [facility] Last Admin: 11/05/23 11:59 Dose: Not Given Documented By: LOREN Hydrocortisone (Hydrocortisone 100 Mg/2 Ml Vial) 100 mg INJ NOW ONE Stop: 11/04/23 11:53 Last Admin: 11/04/23 12:11 Dose: 100 mg Documented By: EVELINE Sodium Chloride (Normal Saline 0.9%) 1,000 mls @ 1,000 mls/hr IV BOLUS ONE Stop: 11/04/23 09:13 Last Infusion: 11/04/23 09:34 Dose: Infused Documented By: Admin: 11/04/23 08:28 Dose: 1,000 mls/hr Documented By: EVELINE POTASSIUM CHLORIDE IN WATER (Potassium Cl 10 Meq/100 Ml Yaa) 10 meq in 100 mls @ 100 mls/hr IV Q1H ANGEL Stop: 11/04/23 12:59 Last Infusion: 11/04/23 16:38 Dose: Infused Documented By: Admin: 11/04/23 15:34 Dose: 100 mls/hr Documented By: Infusion: 11/04/23 14:22 Dose: Infused Documented By: Admin: 11/04/23 13:22 Dose: 100 mls/hr Documented By: Infusion: 11/04/23 13:22 Dose: Infused Documented By: Admin: 11/04/23 12:11 Dose: 100 mls/hr Documented By: Infusion: 11/04/23 10:55 Dose: Infused Documented By: Admin: 11/04/23 09:55 Dose: 100 mls/hr Documented By: LILLIAM Piperacillin Sod/Tazobactam (Sod 4.5 gm/ Sodium Chloride) 100 mls @ 200 mls/hr IV NOW ONE Stop: 11/04/23 08:57 Last Infusion: 11/04/23 10:07 Dose: Infused Documented By: Admin: 11/04/23 09:35 Dose: 200 mls/hr Documented By: LILLIAM Sodium Chloride (Normal Saline 0.9%) 2,442.6 mls @ 814.2 mls/hr 30 ml/kg infuse over 3 hr (2442.6 ml) IV NOW ONE Stop: 11/04/23 11:55 Last Infusion: 11/04/23 12:13 Dose: Infused Documented By: Admin: 11/04/23 09:35 Dose: 814.2 mls/hr Documented By: LILLIAM POTASSIUM CHLORIDE IN WATER (Potassium Cl 10 Meq/100 Ml Yaa) 10 meq in 100 mls @ 100 mls/hr IV Q1H ANGEL Stop: 11/04/23 19:29 Last Infusion: 11/04/23 23:11 Dose: Infused Documented By: Admin: 11/04/23 22:06 Dose: 100 mls/hr Documented By: Infusion: 11/04/23 22:06 Dose: Infused Documented By: Admin: 11/04/23 21:10 Dose: 100 mls/hr Documented By: Infusion: 11/04/23 21:04 Dose: Infused Documented By: Admin: 11/04/23 19:55 Dose: 100 mls/hr Documented By: Infusion: 11/04/23 19:31 Dose: Infused Documented By: Admin: 11/04/23 18:26 Dose: 100 mls/hr Documented By: EVELINE NOREPINEPHRINE BITARTRATE/D5W (Levophed) 4 mg in 250 mls @ 30.533 mls/hr IV TITRATE ANGEL; Protocol Last Admin: 11/05/23 10:23 Dose: Not Given Documented By: LOREN Sodium Chloride (Normal Saline 0.9%) 1,000 mls @ 1,000 mls/hr IV BOLUS ONE Stop: 11/04/23 17:52 Last Infusion: 11/04/23 19:20 Dose: Infused Documented By: Admin: 11/04/23 18:00 Dose: 1,000 mls/hr Documented By: EVELINE Piperacillin Sod/Tazobactam (Sod 4.5 gm/ Sodium Chloride) 100 mls @ 25 mls/hr IV Q8H ANGEL Last Infusion: 11/05/23 06:55 Dose: Infused Documented By: Admin: 11/05/23 02:58 Dose: 25 mls/hr Documented By: Infusion: 11/04/23 23:57 Dose: Infused Documented By: Admin: 11/04/23 19:56 Dose: 25 mls/hr Documented By: KAYE Lactated Ringer's (Lactated Ringers) 1,000 mls @ 200 mls/hr IV CONT ANGEL Last Infusion: 11/05/23 10:44 Dose: Infused Documented By: Admin: 11/05/23 05:47 Dose: 200 mls/hr Documented By: Infusion: 11/05/23 05:47 Dose: Infused Documented By: Admin: 11/05/23 00:56 Dose: 200 mls/hr Documented By: Infusion: 11/05/23 00:55 Dose: Infused Documented By: Admin: 11/04/23 19:56 Dose: 200 mls/hr Documented By: KAYE POTASSIUM CHLORIDE IN WATER (Potassium Cl 10 Meq/100 Ml Yaa) 10 meq in 100 mls @ 100 mls/hr IV Q1H ANGEL Stop: 11/04/23 23:14 Last Admin: 11/04/23 21:52 Dose: Not Given Documented By: HNG Sodium Chloride (Normal Saline 0.9%) 1,000 mls @ 75 mls/hr IV CONT ANGEL Last Admin: 11/05/23 11:30 Dose: 75 mls/hr Documented By: LOREN Piperacillin Sod/Tazobactam (Sod 3.375 gm/ Sodium Chloride) 100 mls @ 25 mls/hr IV Q8H ANGEL Last Admin: 11/07/23 11:26 Dose: 25 mls/hr Documented By: Infusion: 11/07/23 08:45 Dose: Infused Documented By: Admin: 11/07/23 02:05 Dose: 25 mls/hr Documented By: Infusion: 11/06/23 22:14 Dose: Infused Documented By: Admin: 11/06/23 18:14 Dose: 25 mls/hr Documented By: Infusion: 11/06/23 15:36 Dose: Infused Documented By: Admin: 11/06/23 10:57 Dose: 25 mls/hr Documented By: Infusion: 11/06/23 07:56 Dose: Infused Documented By: Admin: 11/06/23 03:10 Dose: 25 mls/hr Documented By: Infusion: 11/05/23 22:06 Dose: Infused Documented By: Admin: 11/05/23 18:06 Dose: 25 mls/hr Documented By: Infusion: 11/05/23 16:12 Dose: Infused Documented By: Admin: 11/05/23 11:25 Dose: 25 mls/hr Documented By: LOREN Dextrose/Sodium Chloride (Dextrose 5%-0.45% Ns) 1,000 mls @ 100 mls/hr IV CONT ANGEL Last Infusion: 11/07/23 15:35 Dose: Infused Documented By: Admin: 11/07/23 05:18 Dose: 100 mls/hr Documented By: Infusion: 11/07/23 05:18 Dose: Infused Documented By: Admin: 11/06/23 19:33 Dose: 100 mls/hr Documented By: Infusion: 11/06/23 19:08 Dose: Infused Documented By: Admin: 11/06/23 09:08 Dose: 100 mls/hr Documented By: Infusion: 11/06/23 09:08 Dose: Infused Documented By: Admin: 11/05/23 23:18 Dose: 100 mls/hr Documented By: Infusion: 11/05/23 22:02 Dose: Infused Documented By: Admin: 11/05/23 12:02 Dose: 100 mls/hr Documented By: LOREN Magnesium Chloride (Magnesium Chloride 64 Mg Tablet) 128 mg PO NOW ONE Stop: 11/06/23 19:01 Last Admin: 11/06/23 19:33 Dose: 128 mg Documented By: Midodrine (Midodrine Hcl 5 Mg Tablet) 10 mg PO 0600,1200,1800 [facility] Last Admin: 11/07/23 12:34 Dose: 10 mg Documented By: Admin: 11/07/23 05:18 Dose: 10 mg Documented By: Admin: 11/06/23 17:26 Dose: 10 mg Documented By: Admin: 11/06/23 11:04 Dose: 10 mg Documented By: Admin: 11/06/23 06:28 Dose: 10 mg Documented By: Admin: 11/05/23 17:41 Dose: 10 mg Documented By: Admin: 11/05/23 11:33 Dose: 10 mg Documented By: Admin: 11/05/23 05:48 Dose: 10 mg Documented By: Admin: 11/04/23 19:56 Dose: 10 mg Documented By: Admin: 11/04/23 12:11 Dose: 10 mg Documented By: EVELINE Morphine Sulfate (Morphine 4 Mg/Ml Inj) 3 mg IV Q2HR PRN PRN Reason: pain (4-6) Naloxone HCl (Naloxone 0.4 Mg/Ml Vial) 0.2 mg IV Q2MIN PRN PRN Reason: Opiate Reversal Naloxone HCl (Naloxone 0.4 Mg/Ml Vial) 0.2 mg IV Q2MIN PRN PRN Reason: Opiate Reversal Ondansetron HCl (Ondansetron 4 Mg/2 Ml Inj) 4 mg IV Q8HR PRN PRN Reason: Nausea And Vomiting Ondansetron HCl (Ondansetron 4 Mg/2 Ml Inj) 4 mg IV Q12H PRN PRN Reason: Nausea And Vomiting Potassium Chloride (Potassium Chloride 20 Meq Tab) 40 meq PO Q6H [facility] Stop: 11/05/23 16:31 Last Admin: 11/05/23 16:12 Dose: 40 meq Documented By: Admin: 11/05/23 11:21 Dose: 40 meq Documented By: LOREN Potassium Chloride (Potassium Chloride 20 Meq/15 Ml Udc) 40 meq PO Q6H [facility] Stop: 11/06/23 17:01 Last Admin: 11/06/23 17:26 Dose: 40 meq Documented By: Admin: 11/06/23 11:01 Dose: 40 meq Documented By: LOREN Potassium Chloride (Potassium Chloride 20 Meq/15 Ml Udc) 40 meq PO Q6H [facility] Stop: 11/07/23 01:01 Last Admin: 11/07/23 02:03 Dose: 40 meq Documented By: Admin: 11/06/23 19:32 Dose: 40 meq Documented By: Vital Signs Vital signs: Vital Signs - 8 hr 11/05/23 00:20 11/05/23 00:20 11/05/23 00:30 Temperature 96.8 F L Pulse Rate 55 L Respiratory Rate 17 Blood Pressure 108/56 L 117/57 L Pulse Oximetry 100 Oxygen Delivery Method Oxygen Flow Rate 11/05/23 00:30 11/05/23 00:41 11/05/23 00:41 Temperature 96.8 F L 96.8 F L Pulse Rate 55 L 55 L Respiratory Rate 17 17 Blood Pressure 97/55 L Pulse Oximetry 99 100 Oxygen Delivery Method Oxygen Flow Rate 11/05/23 00:50 11/05/23 00:50 11/05/23 01:00 Temperature 96.8 F L Pulse Rate 57 L Respiratory Rate 17 Blood Pressure 104/55 L 107/59 L Pulse Oximetry 99 Oxygen Delivery Method Oxygen Flow Rate 11/05/23 01:00 11/05/23 01:10 11/05/23 01:10 Temperature 96.8 F L 96.8 F L Pulse Rate 58 L 57 L Respiratory Rate 17 17 Blood Pressure 112/59 L Pulse Oximetry 99 99 Oxygen Delivery Method Oxygen Flow Rate 11/05/23 01:20 11/05/23 01:20 11/05/23 01:30 Temperature 96.8 F L 96.8 F L Pulse Rate 58 L 58 L Respiratory Rate 16 19 Blood Pressure 105/57 L Pulse Oximetry 99 100 Oxygen Delivery Method Nasal Cannula Nasal Cannula Oxygen Flow Rate 3 3 11/05/23 01:31 11/05/23 01:31 11/05/23 01:40 Temperature 96.8 F L 96.8 F L Pulse Rate 68 64 Respiratory Rate 12 17 Blood Pressure 117/65 Pulse Oximetry 100 99 Oxygen Delivery Method Nasal Cannula Nasal Cannula Oxygen Flow Rate 3 3 11/05/23 01:40 11/05/23 01:50 11/05/23 01:50 Temperature 96.8 F L Pulse Rate 60 Respiratory Rate 17 Blood Pressure 119/62 116/58 L Pulse Oximetry 99 Oxygen Delivery Method Nasal Cannula Oxygen Flow Rate 3 11/05/23 02:00 11/05/23 02:00 11/05/23 02:10 Temperature 96.8 F L 97.0 F L Pulse Rate 61 62 Respiratory Rate 12 14 Blood Pressure 110/60 Pulse Oximetry 98 98 Oxygen Delivery Method Nasal Cannula Nasal Cannula Oxygen Flow Rate 3 3 11/05/23 02:10 11/05/23 02:20 11/05/23 02:20 Temperature 97.0 F L Pulse Rate 72 Respiratory Rate 23 Blood Pressure 121/58 L 107/58 L Pulse Oximetry 98 Oxygen Delivery Method Nasal Cannula Oxygen Flow Rate 3 11/05/23 02:30 11/05/23 02:30 11/05/23 02:40 Temperature 97.0 F L Pulse Rate 59 L Respiratory Rate 17 Blood Pressure 107/56 L 105/56 L Pulse Oximetry 98 Oxygen Delivery Method Nasal Cannula Oxygen Flow Rate 3 11/05/23 02:40 11/05/23 02:50 11/05/23 02:50 Temperature 97.0 F L 97.0 F L Pulse Rate 56 L 58 L Respiratory Rate 16 17 Blood Pressure 103/57 L Pulse Oximetry 99 98 Oxygen Delivery Method Nasal Cannula Nasal Cannula Oxygen Flow Rate 3 3 11/05/23 03:00 11/05/23 03:00 11/05/23 03:10 Temperature 97.2 F L Pulse Rate 58 L Respiratory Rate 16 Blood Pressure 109/57 L 104/52 L Pulse Oximetry 99 Oxygen Delivery Method Nasal Cannula Oxygen Flow Rate 3 11/05/23 03:10 11/05/23 03:30 11/05/23 03:30 Temperature 97.2 F L 97.2 F L Pulse Rate 57 L 58 L Respiratory Rate 17 16 Blood Pressure 98/55 L Pulse Oximetry 99 98 Oxygen Delivery Method Nasal Cannula Nasal Cannula Oxygen Flow Rate 3 2 11/05/23 04:00 11/05/23 04:01 11/05/23 04:01 Temperature 97.2 F L 97.2 F L Pulse Rate 62 61 Respiratory Rate 16 17 Blood Pressure 118/60 Pulse Oximetry 99 99 Oxygen Delivery Method Nasal Cannula Nasal Cannula Oxygen Flow Rate 2 2 11/05/23 04:30 11/05/23 04:31 11/05/23 04:31 Temperature 97.2 F L 97.2 F L Pulse Rate 56 L 56 L Respiratory Rate 17 17 Blood Pressure 99/50 L Pulse Oximetry 98 98 Oxygen Delivery Method Oxygen Flow Rate 11/05/23 05:00 11/05/23 05:01 11/05/23 05:01 Temperature 97.2 F L 97.2 F L Pulse Rate 59 L 64 Respiratory Rate 19 18 Blood Pressure 112/59 L Pulse Oximetry 98 99 Oxygen Delivery Method Oxygen Flow Rate 11/05/23 05:30 11/05/23 05:30 11/05/23 06:00 Temperature 97.3 F L 97.5 F L Pulse Rate 60 69 Respiratory Rate 17 22 Blood Pressure 118/56 L Pulse Oximetry 98 99 Oxygen Delivery Method Oxygen Flow Rate 11/05/23 06:00 11/05/23 06:30 11/05/23 06:30 Temperature 97.5 F L Pulse Rate 65 Respiratory Rate 17 Blood Pressure 115/81 123/57 L Pulse Oximetry 99 Oxygen Delivery Method Oxygen Flow Rate 11/05/23 07:00 11/05/23 07:00 Temperature 97.7 F Pulse Rate 59 L Respiratory Rate 17 Blood Pressure 123/59 L Pulse Oximetry 98 Oxygen Delivery Method Oxygen Flow Rate <Vandana Martinez, - Last Filed: 11/05/23 08:17> Orders Ordered: Discontinued Medications Acetaminophen (Acetaminophen 650 Mg Supp) 650 mg OH NOW ONE Stop: 11/04/23 08:36 Last Admin: 11/04/23 08:50 Dose: 650 mg Documented By: EVELINE Acetaminophen (Acetaminophen 325 Mg Tablet) 650 mg PO Q6H PRN PRN Reason: Fever/Mild Pain (1-3) Heparin Sodium (Porcine) (Heparin 5,000 Unit/Ml Vial) 5,000 unit SUBCUT BID [facility] Last Admin: 11/07/23 11:23 Dose: 5,000 unit Documented By: Admin: 11/06/23 20:09 Dose: 5,000 unit Documented By: Admin: 11/06/23 08:09 Dose: 5,000 unit Documented By: Admin: 11/05/23 20:18 Dose: 5,000 unit Documented By: Admin: 11/05/23 11:21 Dose: 5,000 unit Documented By: LOREN Heparin Sodium (Porcine) (Heparin 5,000 Unit/Ml Vial) 5,000 unit SUBCUT BID [facility] Last Admin: 11/05/23 11:59 Dose: Not Given Documented By: LOREN Hydrocortisone (Hydrocortisone 100 Mg/2 Ml Vial) 100 mg INJ NOW ONE Stop: 11/04/23 11:53 Last Admin: 11/04/23 12:11 Dose: 100 mg Documented By: EVELINE Sodium Chloride (Normal Saline 0.9%) 1,000 mls @ 1,000 mls/hr IV BOLUS ONE Stop: 11/04/23 09:13 Last Infusion: 11/04/23 09:34 Dose: Infused Documented By: Admin: 11/04/23 08:28 Dose: 1,000 mls/hr Documented By: EVELINE POTASSIUM CHLORIDE IN WATER (Potassium Cl 10 Meq/100 Ml Yaa) 10 meq in 100 mls @ 100 mls/hr IV Q1H [facility] Stop: 11/04/23 12:59 Last Infusion: 11/04/23 16:38 Dose: Infused Documented By: Admin: 11/04/23 15:34 Dose: 100 mls/hr Documented By: Infusion: 11/04/23 14:22 Dose: Infused Documented By: Admin: 11/04/23 13:22 Dose: 100 mls/hr Documented By: Infusion: 11/04/23 13:22 Dose: Infused Documented By: Admin: 11/04/23 12:11 Dose: 100 mls/hr Documented By: Infusion: 11/04/23 10:55 Dose: Infused Documented By: Admin: 11/04/23 09:55 Dose: 100 mls/hr Documented By: LILLIAM Piperacillin Sod/Tazobactam (Sod 4.5 gm/ Sodium Chloride) 100 mls @ 200 mls/hr IV NOW ONE Stop: 11/04/23 08:57 Last Infusion: 11/04/23 10:07 Dose: Infused Documented By: Admin: 11/04/23 09:35 Dose: 200 mls/hr Documented By: LILLIAM Sodium Chloride (Normal Saline 0.9%) 2,442.6 mls @ 814.2 mls/hr 30 ml/kg infuse over 3 hr (2442.6 ml) IV NOW ONE Stop: 11/04/23 11:55 Last Infusion: 11/04/23 12:13 Dose: Infused Documented By: Admin: 11/04/23 09:35 Dose: 814.2 mls/hr Documented By: LILLIAM POTASSIUM CHLORIDE IN WATER (Potassium Cl 10 Meq/100 Ml Yaa) 10 meq in 100 mls @ 100 mls/hr IV Q1H [facility] Stop: 11/04/23 19:29 Last Infusion: 11/04/23 23:11 Dose: Infused Documented By: Admin: 11/04/23 22:06 Dose: 100 mls/hr Documented By: Infusion: 11/04/23 22:06 Dose: Infused Documented By: Admin: 11/04/23 21:10 Dose: 100 mls/hr Documented By: Infusion: 11/04/23 21:04 Dose: Infused Documented By: Admin: 11/04/23 19:55 Dose: 100 mls/hr Documented By: Infusion: 11/04/23 19:31 Dose: Infused Documented By: Admin: 11/04/23 18:26 Dose: 100 mls/hr Documented By: EVELINE NOREPINEPHRINE BITARTRATE/D5W (Levophed) 4 mg in 250 mls @ 30.533 mls/hr IV TITRATE [facility]; Protocol Last Admin: 11/05/23 10:23 Dose: Not Given Documented By: LOREN Sodium Chloride (Normal Saline 0.9%) 1,000 mls @ 1,000 mls/hr IV BOLUS ONE Stop: 11/04/23 17:52 Last Infusion: 11/04/23 19:20 Dose: Infused Documented By: Admin: 11/04/23 18:00 Dose: 1,000 mls/hr Documented By: EVELINE Piperacillin Sod/Tazobactam (Sod 4.5 gm/ Sodium Chloride) 100 mls @ 25 mls/hr IV Q8H [facility] Last Infusion: 11/05/23 06:55 Dose: Infused Documented By: Admin: 11/05/23 02:58 Dose: 25 mls/hr Documented By: Infusion: 11/04/23 23:57 Dose: Infused Documented By: Admin: 11/04/23 19:56 Dose: 25 mls/hr Documented By: KAYE Lactated Ringer's (Lactated Ringers) 1,000 mls @ 200 mls/hr IV CONT [facility] Last Infusion: 11/05/23 10:44 Dose: Infused Documented By: Admin: 11/05/23 05:47 Dose: 200 mls/hr Documented By: Infusion: 11/05/23 05:47 Dose: Infused Documented By: Admin: 11/05/23 00:56 Dose: 200 mls/hr Documented By: Infusion: 11/05/23 00:55 Dose: Infused Documented By: Admin: 11/04/23 19:56 Dose: 200 mls/hr Documented By: KAYE POTASSIUM CHLORIDE IN WATER (Potassium Cl 10 Meq/100 Ml Aya) 10 meq in 100 mls @ 100 mls/hr IV Q1H [facility] Stop: 11/04/23 23:14 Last Admin: 11/04/23 21:52 Dose: Not Given Documented By: HNG Sodium Chloride (Normal Saline 0.9%) 1,000 mls @ 75 mls/hr IV CONT [facility] Last Admin: 11/05/23 11:30 Dose: 75 mls/hr Documented By: LOREN Piperacillin Sod/Tazobactam (Sod 3.375 gm/ Sodium Chloride) 100 mls @ 25 mls/hr IV Q8H [facility] Last Admin: 11/07/23 11:26 Dose: 25 mls/hr Documented By: Infusion: 11/07/23 08:45 Dose: Infused Documented By: Admin: 11/07/23 02:05 Dose: 25 mls/hr Documented By: Infusion: 11/06/23 22:14 Dose: Infused Documented By: Admin: 11/06/23 18:14 Dose: 25 mls/hr Documented By: Infusion: 11/06/23 15:36 Dose: Infused Documented By: Admin: 11/06/23 10:57 Dose: 25 mls/hr Documented By: Infusion: 11/06/23 07:56 Dose: Infused Documented By: Admin: 11/06/23 03:10 Dose: 25 mls/hr Documented By: Infusion: 11/05/23 22:06 Dose: Infused Documented By: Admin: 11/05/23 18:06 Dose: 25 mls/hr Documented By: Infusion: 11/05/23 16:12 Dose: Infused Documented By: Admin: 11/05/23 11:25 Dose: 25 mls/hr Documented By: LOREN Dextrose/Sodium Chloride (Dextrose 5%-0.45% Ns) 1,000 mls @ 100 mls/hr IV CONT ANGEL Last Infusion: 11/07/23 15:35 Dose: Infused Documented By: Admin: 11/07/23 05:18 Dose: 100 mls/hr Documented By: Infusion: 11/07/23 05:18 Dose: Infused Documented By: Admin: 11/06/23 19:33 Dose: 100 mls/hr Documented By: Infusion: 11/06/23 19:08 Dose: Infused Documented By: Admin: 11/06/23 09:08 Dose: 100 mls/hr Documented By: Infusion: 11/06/23 09:08 Dose: Infused Documented By: Admin: 11/05/23 23:18 Dose: 100 mls/hr Documented By: Infusion: 11/05/23 22:02 Dose: Infused Documented By: Admin: 11/05/23 12:02 Dose: 100 mls/hr Documented By: LOREN Magnesium Chloride (Magnesium Chloride 64 Mg Tablet) 128 mg PO NOW ONE Stop: 11/06/23 19:01 Last Admin: 11/06/23 19:33 Dose: 128 mg Documented By: Midodrine (Midodrine Hcl 5 Mg Tablet) 10 mg PO 0600,1200,1800 [facility] Last Admin: 11/07/23 12:34 Dose: 10 mg Documented By: Admin: 11/07/23 05:18 Dose: 10 mg Documented By: Admin: 11/06/23 17:26 Dose: 10 mg Documented By: Admin: 11/06/23 11:04 Dose: 10 mg Documented By: Admin: 11/06/23 06:28 Dose: 10 mg Documented By: Admin: 11/05/23 17:41 Dose: 10 mg Documented By: Admin: 11/05/23 11:33 Dose: 10 mg Documented By: Admin: 11/05/23 05:48 Dose: 10 mg Documented By: Admin: 11/04/23 19:56 Dose: 10 mg Documented By: Admin: 11/04/23 12:11 Dose: 10 mg Documented By: EVELINE Morphine Sulfate (Morphine 4 Mg/Ml Inj) 3 mg IV Q2HR PRN PRN Reason: pain (4-6) Naloxone HCl (Naloxone 0.4 Mg/Ml Vial) 0.2 mg IV Q2MIN PRN PRN Reason: Opiate Reversal Naloxone HCl (Naloxone 0.4 Mg/Ml Vial) 0.2 mg IV Q2MIN PRN PRN Reason: Opiate Reversal Ondansetron HCl (Ondansetron 4 Mg/2 Ml Inj) 4 mg IV Q8HR PRN PRN Reason: Nausea And Vomiting Ondansetron HCl (Ondansetron 4 Mg/2 Ml Inj) 4 mg IV Q12H PRN PRN Reason: Nausea And Vomiting Potassium Chloride (Potassium Chloride 20 Meq Tab) 40 meq PO Q6H [facility] Stop: 11/05/23 16:31 Last Admin: 11/05/23 16:12 Dose: 40 meq Documented By: Admin: 11/05/23 11:21 Dose: 40 meq Documented By: LOREN Potassium Chloride (Potassium Chloride 20 Meq/15 Ml Udc) 40 meq PO Q6H [facility] Stop: 11/06/23 17:01 Last Admin: 11/06/23 17:26 Dose: 40 meq Documented By: Admin: 11/06/23 11:01 Dose: 40 meq Documented By: LOREN Potassium Chloride (Potassium Chloride 20 Meq/15 Ml Udc) 40 meq PO Q6H [facility] Stop: 11/07/23 01:01 Last Admin: 11/07/23 02:03 Dose: 40 meq Documented By: Admin: 11/06/23 19:32 Dose: 40 meq Documented By: Vital Signs Vital signs: Vital Signs - 8 hr 11/05/23 00:20 11/05/23 00:20 11/05/23 00:30 Temperature 96.8 F L Pulse Rate 55 L Respiratory Rate 17 Blood Pressure 108/56 L 117/57 L Pulse Oximetry 100 Oxygen Delivery Method Oxygen Flow Rate 11/05/23 00:30 11/05/23 00:41 11/05/23 00:41 Temperature 96.8 F L 96.8 F L Pulse Rate 55 L 55 L Respiratory Rate 17 17 Blood Pressure 97/55 L Pulse Oximetry 99 100 Oxygen Delivery Method Oxygen Flow Rate 11/05/23 00:50 11/05/23 00:50 11/05/23 01:00 Temperature 96.8 F L Pulse Rate 57 L Respiratory Rate 17 Blood Pressure 104/55 L 107/59 L Pulse Oximetry 99 Oxygen Delivery Method Oxygen Flow Rate 11/05/23 01:00 11/05/23 01:10 11/05/23 01:10 Temperature 96.8 F L 96.8 F L Pulse Rate 58 L 57 L Respiratory Rate 17 17 Blood Pressure 112/59 L Pulse Oximetry 99 99 Oxygen Delivery Method Oxygen Flow Rate 11/05/23 01:20 11/05/23 01:20 11/05/23 01:30 Temperature 96.8 F L 96.8 F L Pulse Rate 58 L 58 L Respiratory Rate 16 19 Blood Pressure 105/57 L Pulse Oximetry 99 100 Oxygen Delivery Method Nasal Cannula Nasal Cannula Oxygen Flow Rate 3 3 11/05/23 01:31 11/05/23 01:31 11/05/23 01:40 Temperature 96.8 F L 96.8 F L Pulse Rate 68 64 Respiratory Rate 12 17 Blood Pressure 117/65 Pulse Oximetry 100 99 Oxygen Delivery Method Nasal Cannula Nasal Cannula Oxygen Flow Rate 3 3 11/05/23 01:40 11/05/23 01:50 11/05/23 01:50 Temperature 96.8 F L Pulse Rate 60 Respiratory Rate 17 Blood Pressure 119/62 116/58 L Pulse Oximetry 99 Oxygen Delivery Method Nasal Cannula Oxygen Flow Rate 3 11/05/23 02:00 11/05/23 02:00 11/05/23 02:10 Temperature 96.8 F L 97.0 F L Pulse Rate 61 62 Respiratory Rate 12 14 Blood Pressure 110/60 Pulse Oximetry 98 98 Oxygen Delivery Method Nasal Cannula Nasal Cannula Oxygen Flow Rate 3 3 11/05/23 02:10 11/05/23 02:20 11/05/23 02:20 Temperature 97.0 F L Pulse Rate 72 Respiratory Rate 23 Blood Pressure 121/58 L 107/58 L Pulse Oximetry 98 Oxygen Delivery Method Nasal Cannula Oxygen Flow Rate 3 11/05/23 02:30 11/05/23 02:30 11/05/23 02:40 Temperature 97.0 F L Pulse Rate 59 L Respiratory Rate 17 Blood Pressure 107/56 L 105/56 L Pulse Oximetry 98 Oxygen Delivery Method Nasal Cannula Oxygen Flow Rate 3 11/05/23 02:40 11/05/23 02:50 11/05/23 02:50 Temperature 97.0 F L 97.0 F L Pulse Rate 56 L 58 L Respiratory Rate 16 17 Blood Pressure 103/57 L Pulse Oximetry 99 98 Oxygen Delivery Method Nasal Cannula Nasal Cannula Oxygen Flow Rate 3 3 11/05/23 03:00 11/05/23 03:00 11/05/23 03:10 Temperature 97.2 F L Pulse Rate 58 L Respiratory Rate 16 Blood Pressure 109/57 L 104/52 L Pulse Oximetry 99 Oxygen Delivery Method Nasal Cannula Oxygen Flow Rate 3 11/05/23 03:10 11/05/23 03:30 11/05/23 03:30 Temperature 97.2 F L 97.2 F L Pulse Rate 57 L 58 L Respiratory Rate 17 16 Blood Pressure 98/55 L Pulse Oximetry 99 98 Oxygen Delivery Method Nasal Cannula Nasal Cannula Oxygen Flow Rate 3 2 11/05/23 04:00 11/05/23 04:01 11/05/23 04:01 Temperature 97.2 F L 97.2 F L Pulse Rate 62 61 Respiratory Rate 16 17 Blood Pressure 118/60 Pulse Oximetry 99 99 Oxygen Delivery Method Nasal Cannula Nasal Cannula Oxygen Flow Rate 2 2 11/05/23 04:30 11/05/23 04:31 11/05/23 04:31 Temperature 97.2 F L 97.2 F L Pulse Rate 56 L 56 L Respiratory Rate 17 17 Blood Pressure 99/50 L Pulse Oximetry 98 98 Oxygen Delivery Method Oxygen Flow Rate 11/05/23 05:00 11/05/23 05:01 11/05/23 05:01 Temperature 97.2 F L 97.2 F L Pulse Rate 59 L 64 Respiratory Rate 19 18 Blood Pressure 112/59 L Pulse Oximetry 98 99 Oxygen Delivery Method Oxygen Flow Rate 11/05/23 05:30 11/05/23 05:30 11/05/23 06:00 Temperature 97.3 F L 97.5 F L Pulse Rate 60 69 Respiratory Rate 17 22 Blood Pressure 118/56 L Pulse Oximetry 98 99 Oxygen Delivery Method Oxygen Flow Rate 11/05/23 06:00 11/05/23 06:30 11/05/23 06:30 Temperature 97.5 F L Pulse Rate 65 Respiratory Rate 17 Blood Pressure 115/81 123/57 L Pulse Oximetry 99 Oxygen Delivery Method Oxygen Flow Rate 11/05/23 07:00 11/05/23 07:00 Temperature 97.7 F Pulse Rate 59 L Respiratory Rate 17 Blood Pressure 123/59 L Pulse Oximetry 98 Oxygen Delivery Method Oxygen Flow Rate MDM - Altered Mental Status <Charmaine Reaves, DO - Last Filed: 11/07/23 18:11> Lab Data 11/07/23 05:30 11/07/23 05:30 Labs: Lab Results 11/04/23 11/04/23 11/04/23 Range/Units 07:48 07:56 08:35 WBC 8.6 (4.5-11.0) X10^3/uL RBC 4.45 L (4.5-5.9) X10^6/uL Hgb 14.0 (13.5-17.5) g/dL Hct 41.2 (41-53) % MCV 92.6 (80-100) fL MCH 31.5 (26-34) PG MCHC 34.0 (30-36) % RDW 14.1 (11.6-14.8) % Plt Count 112 L (150-400) X10^3/uL Neut % (Auto) 88.3 H (50-75) % Lymph % (Auto) 4.5 L (25-40) % [place] % (Auto) 7.0 (3-14) % Eos % (Auto) 0.1 L (2-4) % Baso % (Auto) 0.1 (0-2) % Neut # (Auto) 7600 H (6754-4130) /uL Lymph # (Auto) 400 L (8982-1992) /uL [place] # (Auto) 600 (0-900) /uL Eos # (Auto) 0 (0-450) /uL Baso # (Auto) 0 (0-100) /uL PT 16.4 H (9.4-12.5) SECONDS INR 1.4 H (0.9-1.3) APTT 32 (25.1-36.5) SECONDS Sodium 141 (137-145) mmol/L Potassium 2.7 L* (3.4-5.1) mmol/L Chloride 101 (98-107) mmol/L Carbon Dioxide 31 (22-32) mmol/L BUN 22 H (9-20) mg/dL Creatinine 0.67 (0.66-1.25) mg/dL Estimated GFR > 60 (>60) mL/min BUN/Creatinine Ratio 32.8 H (6-22) Glucose 126 H (80-110) mg/dL Lactate 2.7 H (0.7-2.1) mmol/L Calcium 8.8 (8.4-10.2) mg/dL Total Bilirubin 6.1 H (0.2-1.3) mg/dL AST 120 H (17-59) IU/L ALT 61 H (<50) IU/L Alkaline Phosphatase 184 H (38-126) U/L Total Creatine Kinase 115 (55-170) U/L Troponin I 0.072 H (0.01-0.034) ng/mL Total Protein 6.7 (6.3-8.2) g/dL Albumin 3.4 L (3.5-5.0) g/dL Globulin 3.3 (1.7-4.1) g/dL Albumin/Globulin Ratio 1.0 (1.0-2.8) Lipase 25 (23-300) U/L Procalcitonin 1.12 H (<0.5) ng/mL TSH 0.573 (0.47-4.68) uIU/mL Urine Color Urine Appearance Urine pH (4.5-8.0) Ur Specific [place] (1.000-1.035) Urine Protein (Negative) Urine Glucose (UA) (Negative) g/dL Urine Ketones (NEGATIVE) Urine Occult Blood (Negative) Urine Nitrate (Negative) Urine Bilirubin (NEGATIVE) Ur Bilirubin Confirm Urine Urobilinogen (0.2) E.U./dL Ur Leukocyte Esterase (NEGATIVE) Urine RBC (0-5/HPF) Urine WBC (0-5/HPF) Ur Squamous Epith Cells (0-5/HPF) Ur Transition Epith Cell (0-5/HPF) Urine Bacteria (None) Ur Culture Indicated? Vol Urine Centrifuged Chlamy pneumoniae PCR Not detected (Not Detect) Adenovirus (PCR) Not detected (Not Detect) B.parapertussis DNA PCR Not detected (Not Detecte) Coronavirus OC43 (PCR) Not detected (Not Detect) Coronavirus HKU1 (PCR) Not detected (Not Detect) Coronavirus 229E (PCR) Not detected (Not Detect) SARS-CoV-2 (PCR) Not detected (Not Detecte) Coronavirus NL63 (PCR) Not detected (Not Detect) Human Metapneumovir PCR Not detected (Not Detect) Influenza Type A (PCR) Not detected (Not Detect) Influenza Type B (PCR) Not detected (Not Detect) M. pneumoniae (PCR) Not detected (Not Detect) Parainfluenza 1 (PCR) Not detected (Not Detect) Parainfluenza 2 (PCR) Not detected (Not Detect) Parainfluenza 3 (PCR) Not detected (Not Detect) Parainfluenza 4 (PCR) Not detected (Not Detect) RSV (PCR) Not detected (Not Detect) Entero/Rhino (PCR) Not detected (Not Detect) 11/04/23 11/04/23 11/04/23 Range/Units 08:44 09:57 14:30 WBC (4.5-11.0) X10^3/uL RBC (4.5-5.9) X10^6/uL Hgb (13.5-17.5) g/dL Hct (41-53) % MCV (80-100) fL MCH (26-34) PG MCHC (30-36) % RDW (11.6-14.8) % Plt Count (150-400) X10^3/uL Neut % (Auto) (50-75) % Lymph % (Auto) (25-40) % [place] % (Auto) (3-14) % Eos % (Auto) (2-4) % Baso % (Auto) (0-2) % Neut # (Auto) (9980-1374) /uL Lymph # (Auto) (4676-7744) /uL [place] # (Auto) (0-900) /uL Eos # (Auto) (0-450) /uL Baso # (Auto) (0-100) /uL PT (9.4-12.5) SECONDS INR (0.9-1.3) APTT (25.1-36.5) SECONDS Sodium 141 (137-145) mmol/L Potassium 2.9 L (3.4-5.1) mmol/L Chloride 105 (98-107) mmol/L Carbon Dioxide 30 (22-32) mmol/L BUN 23 H (9-20) mg/dL Creatinine 0.84 (0.66-1.25) mg/dL Estimated GFR > 60 (>60) mL/min BUN/Creatinine Ratio 27.4 H (6-22) Glucose 114 H (80-110) mg/dL Lactate 1.4 (0.7-2.1) mmol/L Calcium 7.8 L (8.4-10.2) mg/dL Total Bilirubin 6.1 H (0.2-1.3) mg/dL AST 90 H (17-59) IU/L ALT 49 (<50) IU/L Alkaline Phosphatase 135 H (38-126) U/L Total Creatine Kinase (55-170) U/L Troponin I 0.121 H* (0.01-0.034) ng/mL Total Protein 5.7 L (6.3-8.2) g/dL Albumin 2.7 L (3.5-5.0) g/dL Globulin 3.0 (1.7-4.1) g/dL Albumin/Globulin Ratio 0.9 L (1.0-2.8) Lipase (23-300) U/L Procalcitonin (<0.5) ng/mL TSH (0.47-4.68) uIU/mL Urine Color Yellow Urine Appearance Clear Urine pH 5.0 (4.5-8.0) Ur Specific [place] 1.020 (1.000-1.035) Urine Protein 2+ H (Negative) Urine Glucose (UA) Trace H (Negative) g/dL Urine Ketones Trace H (NEGATIVE) Urine Occult Blood Negative (Negative) Urine Nitrate Positive H (Negative) Urine Bilirubin 3+ H (NEGATIVE) Ur Bilirubin Confirm TNP Urine Urobilinogen >=8.0 (0.2) E.U./dL Ur Leukocyte Esterase Negative (NEGATIVE) Urine RBC None seen (0-5/HPF) Urine WBC 1-5/hpf (0-5/HPF) Ur Squamous Epith Cells 1-5 /hpf (0-5/HPF) Ur Transition Epith Cell 0-1/hpf (0-5/HPF) Urine Bacteria None seen (None) Ur Culture Indicated? Cult not indicated Vol Urine Centrifuged 10ml (spun) Chlamy pneumoniae PCR (Not Detect) Adenovirus (PCR) (Not Detect) B.parapertussis DNA PCR (Not Detecte) Coronavirus OC43 (PCR) (Not Detect) Coronavirus HKU1 (PCR) (Not Detect) Coronavirus 229E (PCR) (Not Detect) SARS-CoV-2 (PCR) (Not Detecte) Coronavirus NL63 (PCR) (Not Detect) Human Metapneumovir PCR (Not Detect) Influenza Type A (PCR) (Not Detect) Influenza Type B (PCR) (Not Detect) M. pneumoniae (PCR) (Not Detect) Parainfluenza 1 (PCR) (Not Detect) Parainfluenza 2 (PCR) (Not Detect) Parainfluenza 3 (PCR) (Not Detect) Parainfluenza 4 (PCR) (Not Detect) RSV (PCR) (Not Detect) Entero/Rhino (PCR) (Not Detect) 11/05/23 Range/Units 06:01 WBC 9.9 (4.5-11.0) X10^3/uL RBC 3.49 L (4.5-5.9) X10^6/uL Hgb 11.2 L (13.5-17.5) g/dL Hct 32.2 L (41-53) % MCV 92.3 (80-100) fL MCH 32.1 (26-34) PG MCHC 34.8 (30-36) % RDW 14.5 (11.6-14.8) % Plt Count 91 L (150-400) X10^3/uL Neut % (Auto) 84.0 H (50-75) % Lymph % (Auto) 8.3 L (25-40) % [place] % (Auto) 7.3 (3-14) % Eos % (Auto) 0.1 L (2-4) % Baso % (Auto) 0.3 (0-2) % Neut # (Auto) 8400 H (9899-6772) /uL Lymph # (Auto) 800 L (5239-1565) /uL [place] # (Auto) 700 (0-900) /uL Eos # (Auto) 0 (0-450) /uL Baso # (Auto) 0 (0-100) /uL PT (9.4-12.5) SECONDS INR (0.9-1.3) APTT (25.1-36.5) SECONDS Sodium 142 (137-145) mmol/L Potassium 3.3 L (3.4-5.1) mmol/L Chloride 109 H (98-107) mmol/L Carbon Dioxide 26 (22-32) mmol/L BUN 25 H (9-20) mg/dL Creatinine 0.69 (0.66-1.25) mg/dL Estimated GFR > 60 (>60) mL/min BUN/Creatinine Ratio 36.2 H (6-22) Glucose 107 (80-110) mg/dL Lactate (0.7-2.1) mmol/L Calcium 7.7 L (8.4-10.2) mg/dL Total Bilirubin 3.4 H (0.2-1.3) mg/dL AST 70 H (17-59) IU/L ALT 40 (<50) IU/L Alkaline Phosphatase 113 (38-126) U/L Total Creatine Kinase (55-170) U/L Troponin I 0.087 H (0.01-0.034) ng/mL Total Protein 5.2 L (6.3-8.2) g/dL Albumin 2.4 L (3.5-5.0) g/dL Globulin 2.8 (1.7-4.1) g/dL Albumin/Globulin Ratio 0.9 L (1.0-2.8) Lipase 91 D (23-300) U/L Procalcitonin 1.24 H (<0.5) ng/mL TSH (0.47-4.68) uIU/mL Urine Color Urine Appearance Urine pH (4.5-8.0) Ur Specific [place] (1.000-1.035) Urine Protein (Negative) Urine Glucose (UA) (Negative) g/dL Urine Ketones (NEGATIVE) Urine Occult Blood (Negative) Urine Nitrate (Negative) Urine Bilirubin (NEGATIVE) Ur Bilirubin Confirm Urine Urobilinogen (0.2) E.U./dL Ur Leukocyte Esterase (NEGATIVE) Urine RBC (0-5/HPF) Urine WBC (0-5/HPF) Ur Squamous Epith Cells (0-5/HPF) Ur Transition Epith Cell (0-5/HPF) Urine Bacteria (None) Ur Culture Indicated? Vol Urine Centrifuged Chlamy pneumoniae PCR (Not Detect) Adenovirus (PCR) (Not Detect) B.parapertussis DNA PCR (Not Detecte) Coronavirus OC43 (PCR) (Not Detect) Coronavirus HKU1 (PCR) (Not Detect) Coronavirus 229E (PCR) (Not Detect) SARS-CoV-2 (PCR) (Not Detecte) Coronavirus NL63 (PCR) (Not Detect) Human Metapneumovir PCR (Not Detect) Influenza Type A (PCR) (Not Detect) Influenza Type B (PCR) (Not Detect) M. pneumoniae (PCR) (Not Detect) Parainfluenza 1 (PCR) (Not Detect) Parainfluenza 2 (PCR) (Not Detect) Parainfluenza 3 (PCR) (Not Detect) Parainfluenza 4 (PCR) (Not Detect) RSV (PCR) (Not Detect) Entero/Rhino (PCR) (Not Detect) ECG Data Attestation: I personally reviewed and interpreted this ECG as follows: Prior ECG tracings: available for review Interpretation: AFib with rapid ventricular rate of 122, QRS 80 QTC of 504. Nonspecific change. Patient has prior from 09/24/2023 which showed normal sinus rhythm prior EKGs from multiple visits show occasional premature atrial complexes but no obvious atrial fibrillation. 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 Patient is alert, can give me his name but appears very dry on examination. Nontender but does feel warm. Patient is tachycardic, hypotensive, requiring 2 L nasal cannula which appears to be new, afebrile initially on exam with no respiratory distress. Patient does have POLST form that indicates DNR/DNI with limited treatment. Patient indicates this as well. Patient received fluids Catheter in place for strict I's and O's Talked with patient, he is alert but clearly tired. Discussed if needed transfer for ERCP he states just let me . Patient not at bedside. He is okay with labs and antibiotics. Labs labs show white count 8.6 hemoglobin of 14 platelets are 112 patient has been on the low end in the 130s. INR is 1.4, potassium is 2.7 with a sodium of 141 CO2 of 31 BUN 22 and a creatinine of 0.67, glucose is 126 and she will lactate was 2.7 trending down words to 1.4. Bilirubin 6.1 with an AST of 120 ALT is 61 and alk-phos of 184. Troponins indeterminate 0.072, procalcitonin is positive at 0.112 with a normal TSH. UA shows trace protein, patient has had minimal output. Respiratory panel is negative Head CT head CT shows no acute change stable echogenic focus right frontal lobe suggesting calcification hemosiderin. Chest x-ray chest x-ray negative EKG shows AFib with RVR nonspecific change no new ST elevation or depression, this appears to be new. Patient had elevation in LFTs with significant bilirubin, fevers and changes consistent with infection abdominal ultrasound was obtained and shows normal kidneys, liver not well visualized but grossly within normal limits with the common bile duct dilated 8.8 mm no stones on ultrasound. Spoke with patients he is DNR/DNI but she is open to MRCP and even potential ERCP and transfer. Patient is sent for MRCP Patient had to have his catheter removed for MR and was replaced after that as it was temp falling. Patient did drop his blood pressure down into the 60s during this. While receiving fluids. Patient's arrived after discussion with patient he does not wish for transfer, he would prefer to be made comfort measure. Discussed with we will get MRCP results and discuss final plans but he is DNR/DNI no pressors at this point and we will discuss comfort measures after more information available. He does take midodrine and fludrocortisone so we will give a dose of Solu-Cortef and a midodrine here. MRCP extra and intrahepatic bile ducts within normal limits cystic duct is prominent gallbladder dilated small gallstone layer leak sludge no pericholecystic fluid. No pancreatic ductal dilation. Spoke with Dr. Ventura, general surgery who would be happy to follow with patient but with medicine admit for potential cholecystectomy. Spoke with Dr. Winkler, hospitalist, asked for repeat troponin and CMP. These were obtained troponin is now positive, CMP is about the same patient had just completed his potassium so additional was ordered as it was low at 2.[address]. [address] Winkler about patient and family goals of care have had several discussions with the he is not comfort measure she is okay with antibiotics she does not wish to continue with pressors or intubation or CPR. Dr. Winkler in department, met with patient's after discussion we will can 10 you DNR/DNI but we will give pressors and transfer for definitive care for cholangitis. Dr. Winkler states patient was not able to give input into goals of care. Continue with fluid resuscitation, nor epi started. We will call for transfer. <Gino Ortiz MD - Last Filed: 11/05/23 05:03> Lab Data Labs: Lab Results 11/04/23 11/04/23 11/04/23 Range/Units 07:48 07:56 08:35 WBC 8.6 (4.5-11.0) X10^3/uL RBC 4.45 L (4.5-5.9) X10^6/uL Hgb 14.0 (13.5-17.5) g/dL Hct 41.2 (41-53) % MCV 92.6 (80-100) fL MCH 31.5 (26-34) PG MCHC 34.0 (30-36) % RDW 14.1 (11.6-14.8) % Plt Count 112 L (150-400) X10^3/uL Neut % (Auto) 88.3 H (50-75) % Lymph % (Auto) 4.5 L (25-40) % [place] % (Auto) 7.0 (3-14) % Eos % (Auto) 0.1 L (2-4) % Baso % (Auto) 0.1 (0-2) % Neut # (Auto) 7600 H (9343-9119) /uL Lymph # (Auto) 400 L (7536-1083) /uL [place] # (Auto) 600 (0-900) /uL Eos # (Auto) 0 (0-450) /uL Baso # (Auto) 0 (0-100) /uL PT 16.4 H (9.4-12.5) SECONDS INR 1.4 H (0.9-1.3) APTT 32 (25.1-36.5) SECONDS Sodium 141 (137-145) mmol/L Potassium 2.7 L* (3.4-5.1) mmol/L Chloride 101 (98-107) mmol/L Carbon Dioxide 31 (22-32) mmol/L BUN 22 H (9-20) mg/dL Creatinine 0.67 (0.66-1.25) mg/dL Estimated GFR > 60 (>60) mL/min BUN/Creatinine Ratio 32.8 H (6-22) Glucose 126 H (80-110) mg/dL Lactate 2.7 H (0.7-2.1) mmol/L Calcium 8.8 (8.4-10.2) mg/dL Total Bilirubin 6.1 H (0.2-1.3) mg/dL AST 120 H (17-59) IU/L ALT 61 H (<50) IU/L Alkaline Phosphatase 184 H (38-126) U/L Total Creatine Kinase 115 (55-170) U/L Troponin I 0.072 H (0.01-0.034) ng/mL Total Protein 6.7 (6.3-8.2) g/dL Albumin 3.4 L (3.5-5.0) g/dL Globulin 3.3 (1.7-4.1) g/dL Albumin/Globulin Ratio 1.0 (1.0-2.8) Lipase 25 (23-300) U/L Procalcitonin 1.12 H (<0.5) ng/mL TSH 0.573 (0.47-4.68) uIU/mL Urine Color Urine Appearance Urine pH (4.5-8.0) Ur Specific [place] (1.000-1.035) Urine Protein (Negative) Urine Glucose (UA) (Negative) g/dL Urine Ketones (NEGATIVE) Urine Occult Blood (Negative) Urine Nitrate (Negative) Urine Bilirubin (NEGATIVE) Ur Bilirubin Confirm Urine Urobilinogen (0.2) E.U./dL Ur Leukocyte Esterase (NEGATIVE) Urine RBC (0-5/HPF) Urine WBC (0-5/HPF) Ur Squamous Epith Cells (0-5/HPF) Ur Transition Epith Cell (0-5/HPF) Urine Bacteria (None) Ur Culture Indicated? Vol Urine Centrifuged Chlamy pneumoniae PCR Not detected (Not Detect) Adenovirus (PCR) Not detected (Not Detect) B.parapertussis DNA PCR Not detected (Not Detecte) Coronavirus OC43 (PCR) Not detected (Not Detect) Coronavirus HKU1 (PCR) Not detected (Not Detect) Coronavirus 229E (PCR) Not detected (Not Detect) SARS-CoV-2 (PCR) Not detected (Not Detecte) Coronavirus NL63 (PCR) Not detected (Not Detect) Human Metapneumovir PCR Not detected (Not Detect) Influenza Type A (PCR) Not detected (Not Detect) Influenza Type B (PCR) Not detected (Not Detect) M. pneumoniae (PCR) Not detected (Not Detect) Parainfluenza 1 (PCR) Not detected (Not Detect) Parainfluenza 2 (PCR) Not detected (Not Detect) Parainfluenza 3 (PCR) Not detected (Not Detect) Parainfluenza 4 (PCR) Not detected (Not Detect) RSV (PCR) Not detected (Not Detect) Entero/Rhino (PCR) Not detected (Not Detect) 11/04/23 11/04/23 11/04/23 Range/Units 08:44 09:57 14:30 WBC (4.5-11.0) X10^3/uL RBC (4.5-5.9) X10^6/uL Hgb (13.5-17.5) g/dL Hct (41-53) % MCV (80-100) fL MCH (26-34) PG MCHC (30-36) % RDW (11.6-14.8) % Plt Count (150-400) X10^3/uL Neut % (Auto) (50-75) % Lymph % (Auto) (25-40) % [place] % (Auto) (3-14) % Eos % (Auto) (2-4) % Baso % (Auto) (0-2) % Neut # (Auto) (6420-1331) /uL Lymph # (Auto) (5883-6525) /uL [place] # (Auto) (0-900) /uL Eos # (Auto) (0-450) /uL Baso # (Auto) (0-100) /uL PT (9.4-12.5) SECONDS INR (0.9-1.3) APTT (25.1-36.5) SECONDS Sodium 141 (137-145) mmol/L Potassium 2.9 L (3.4-5.1) mmol/L Chloride 105 (98-107) mmol/L Carbon Dioxide 30 (22-32) mmol/L BUN 23 H (9-20) mg/dL Creatinine 0.84 (0.66-1.25) mg/dL Estimated GFR > 60 (>60) mL/min BUN/Creatinine Ratio 27.4 H (6-22) Glucose 114 H (80-110) mg/dL Lactate 1.4 (0.7-2.1) mmol/L Calcium 7.8 L (8.4-10.2) mg/dL Total Bilirubin 6.1 H (0.2-1.3) mg/dL AST 90 H (17-59) IU/L ALT 49 (<50) IU/L Alkaline Phosphatase 135 H (38-126) U/L Total Creatine Kinase (55-170) U/L Troponin I 0.121 H* (0.01-0.034) ng/mL Total Protein 5.7 L (6.3-8.2) g/dL Albumin 2.7 L (3.5-5.0) g/dL Globulin 3.0 (1.7-4.1) g/dL Albumin/Globulin Ratio 0.9 L (1.0-2.8) Lipase (23-300) U/L Procalcitonin (<0.5) ng/mL TSH (0.47-4.68) uIU/mL Urine Color Yellow Urine Appearance Clear Urine pH 5.0 (4.5-8.0) Ur Specific [place] 1.020 (1.000-1.035) Urine Protein 2+ H (Negative) Urine Glucose (UA) Trace H (Negative) g/dL Urine Ketones Trace H (NEGATIVE) Urine Occult Blood Negative (Negative) Urine Nitrate Positive H (Negative) Urine Bilirubin 3+ H (NEGATIVE) Ur Bilirubin Confirm TNP Urine Urobilinogen >=8.0 (0.2) E.U./dL Ur Leukocyte Esterase Negative (NEGATIVE) Urine RBC None seen (0-5/HPF) Urine WBC 1-5/hpf (0-5/HPF) Ur Squamous Epith Cells 1-5 /hpf (0-5/HPF) Ur Transition Epith Cell 0-1/hpf (0-5/HPF) Urine Bacteria None seen (None) Ur Culture Indicated? Cult not indicated Vol Urine Centrifuged 10ml (spun) Chlamy pneumoniae PCR (Not Detect) Adenovirus (PCR) (Not Detect) B.parapertussis DNA PCR (Not Detecte) Coronavirus OC43 (PCR) (Not Detect) Coronavirus HKU1 (PCR) (Not Detect) Coronavirus 229E (PCR) (Not Detect) SARS-CoV-2 (PCR) (Not Detecte) Coronavirus NL63 (PCR) (Not Detect) Human Metapneumovir PCR (Not Detect) Influenza Type A (PCR) (Not Detect) Influenza Type B (PCR) (Not Detect) M. pneumoniae (PCR) (Not Detect) Parainfluenza 1 (PCR) (Not Detect) Parainfluenza 2 (PCR) (Not Detect) Parainfluenza 3 (PCR) (Not Detect) Parainfluenza 4 (PCR) (Not Detect) RSV (PCR) (Not Detect) Entero/Rhino (PCR) (Not Detect) 11/05/23 Range/Units 06:01 WBC 9.9 (4.5-11.0) X10^3/uL RBC 3.49 L (4.5-5.9) X10^6/uL Hgb 11.2 L (13.5-17.5) g/dL Hct 32.2 L (41-53) % MCV 92.3 (80-100) fL MCH 32.1 (26-34) PG MCHC 34.8 (30-36) % RDW 14.5 (11.6-14.8) % Plt Count 91 L (150-400) X10^3/uL Neut % (Auto) 84.0 H (50-75) % Lymph % (Auto) 8.3 L (25-40) % [place] % (Auto) 7.3 (3-14) % Eos % (Auto) 0.1 L (2-4) % Baso % (Auto) 0.3 (0-2) % Neut # (Auto) 8400 H (9124-3037) /uL Lymph # (Auto) 800 L (2039-1283) /uL [place] # (Auto) 700 (0-900) /uL Eos # (Auto) 0 (0-450) /uL Baso # (Auto) 0 (0-100) /uL PT (9.4-12.5) SECONDS INR (0.9-1.3) APTT (25.1-36.5) SECONDS Sodium 142 (137-145) mmol/L Potassium 3.3 L (3.4-5.1) mmol/L Chloride 109 H (98-107) mmol/L Carbon Dioxide 26 (22-32) mmol/L BUN 25 H (9-20) mg/dL Creatinine 0.69 (0.66-1.25) mg/dL Estimated GFR > 60 (>60) mL/min BUN/Creatinine Ratio 36.2 H (6-22) Glucose 107 (80-110) mg/dL Lactate (0.7-2.1) mmol/L Calcium 7.7 L (8.4-10.2) mg/dL Total Bilirubin 3.4 H (0.2-1.3) mg/dL AST 70 H (17-59) IU/L ALT 40 (<50) IU/L Alkaline Phosphatase 113 (38-126) U/L Total Creatine Kinase (55-170) U/L Troponin I 0.087 H (0.01-0.034) ng/mL Total Protein 5.2 L (6.3-8.2) g/dL Albumin 2.4 L (3.5-5.0) g/dL Globulin 2.8 (1.7-4.1) g/dL Albumin/Globulin Ratio 0.9 L (1.0-2.8) Lipase 91 D (23-300) U/L Procalcitonin 1.24 H (<0.5) ng/mL TSH (0.47-4.68) uIU/mL Urine Color Urine Appearance Urine pH (4.5-8.0) Ur Specific [place] (1.000-1.035) Urine Protein (Negative) Urine Glucose (UA) (Negative) g/dL Urine Ketones (NEGATIVE) Urine Occult Blood (Negative) Urine Nitrate (Negative) Urine Bilirubin (NEGATIVE) Ur Bilirubin Confirm Urine Urobilinogen (0.2) E.U./dL Ur Leukocyte Esterase (NEGATIVE) Urine RBC (0-5/HPF) Urine WBC (0-5/HPF) Ur Squamous Epith Cells (0-5/HPF) Ur Transition Epith Cell (0-5/HPF) Urine Bacteria (None) Ur Culture Indicated? Vol Urine Centrifuged Chlamy pneumoniae PCR (Not Detect) Adenovirus (PCR) (Not Detect) B.parapertussis DNA PCR (Not Detecte) Coronavirus OC43 (PCR) (Not Detect) Coronavirus HKU1 (PCR) (Not Detect) Coronavirus 229E (PCR) (Not Detect) SARS-CoV-2 (PCR) (Not Detecte) Coronavirus NL63 (PCR) (Not Detect) Human Metapneumovir PCR (Not Detect) Influenza Type A (PCR) (Not Detect) Influenza Type B (PCR) (Not Detect) M. 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 Patient is alert, can give me his name but appears very dry on examination. Nontender but does feel warm. Patient is tachycardic, hypotensive, requiring 2 L nasal cannula which appears to be new, afebrile initially on exam with no respiratory distress. Patient does have POLST form that indicates DNR/DNI with limited treatment. Patient indicates this as well. Patient received fluids Catheter in place for strict I's and O's Talked with patient, he is alert but clearly tired. Discussed if needed transfer for ERCP he states just let me . Patient not at bedside. He is okay with labs and antibiotics. Labs labs show white count 8.6 hemoglobin of 14 platelets are 112 patient has been on the low end in the 130s. INR is 1.4, potassium is 2.7 with a sodium of 141 CO2 of 31 BUN 22 and a creatinine of 0.67, glucose is 126 and she will lactate was 2.7 trending down words to 1.4. Bilirubin 6.1 with an AST of 120 ALT is 61 and alk-phos of 184. Troponins indeterminate 0.072, procalcitonin is positive at 0.112 with a normal TSH. UA shows trace protein, patient has had minimal output. Respiratory panel is negative Head CT head CT shows no acute change stable echogenic focus right frontal lobe suggesting calcification hemosiderin. Chest x-ray chest x-ray negative EKG shows AFib with RVR nonspecific change no new ST elevation or depression, this appears to be new. Patient had elevation in LFTs with significant bilirubin, fevers and changes consistent with infection abdominal ultrasound was obtained and shows normal kidneys, liver not well visualized but grossly within normal limits with the common bile duct dilated 8.8 mm no stones on ultrasound. Spoke with patients he is DNR/DNI but she is open to MRCP and even potential ERCP and transfer. Patient is sent for MRCP Patient had to have his catheter removed for MR and was replaced after that as it was temp falling. Patient did drop his blood pressure down into the 60s during this. While receiving fluids. Patient's arrived after discussion with patient he does not wish for transfer, he would prefer to be made comfort measure. Discussed with we will get MRCP results and discuss final plans but he is DNR/DNI no pressors at this point and we will discuss comfort measures after more information available. He does take midodrine and fludrocortisone so we will give a dose of Solu-Cortef and a midodrine here. MRCP extra and intrahepatic bile ducts within normal limits cystic duct is prominent gallbladder dilated small gallstone layer leak sludge no pericholecystic fluid. No pancreatic ductal dilation. Spoke with Dr. Ventura, general surgery who would be happy to follow with patient but with medicine admit for potential cholecystectomy. Spoke with Dr. Winkler, hospitalist, asked for repeat troponin and CMP. These were obtained troponin is now positive, CMP is about the same patient had just completed his potassium so additional was ordered as it was low at 2.[address]. [address] Winkler about patient and family goals of care have had several discussions with the he is not comfort measure she is okay with antibiotics she does not wish to continue with pressors or intubation or CPR. Dr. Winkler in department, met with patient's after discussion we will can 10 you DNR/DNI but we will give pressors and transfer for definitive care for cholangitis. Dr. Winkler states patient was not able to give input into goals of care. Continue with fluid resuscitation, nor epi started. We will call for transfer. 195411/04/23 I, Gino Ortiz, assumed care of this patient from Dr. Reaves at approximately 6:00 p.m.. I have reviewed the data and heard report from her in detail. I just spoke to Dr. Guerra at [facility] in [address] who agrees to accept the patient to the ICU but there is no bed available and they do not expect to have a bed till tomorrow morning. The patient currently on pressor with some maintenance fluids broad-spectrum antibiotics. 310 I am informed by nursing staff that in fact the patient never required norepinephrine. Pressure has recovered spontaneously. Spoke to Dr. Parsons just now who agrees to admit the patient. <Vandana Martinez, - Last Filed: 11/05/23 08:17> Lab Data Labs: Lab Results 11/04/23 11/04/23 11/04/23 Range/Units 07:48 07:56 08:35 WBC 8.6 (4.5-11.0) X10^3/uL RBC 4.45 L (4.5-5.9) X10^6/uL Hgb 14.0 (13.5-17.5) g/dL Hct 41.2 (41-53) % MCV 92.6 (80-100) fL MCH 31.5 (26-34) PG MCHC 34.0 (30-36) % RDW 14.1 (11.6-14.8) % Plt Count 112 L (150-400) X10^3/uL Neut % (Auto) 88.3 H (50-75) % Lymph % (Auto) 4.5 L (25-40) % [place] % (Auto) 7.0 (3-14) % Eos % (Auto) 0.1 L (2-4) % Baso % (Auto) 0.1 (0-2) % Neut # (Auto) 7600 H (2396-3136) /uL Lymph # (Auto) 400 L (7463-1751) /uL [place] # (Auto) 600 (0-900) /uL Eos # (Auto) 0 (0-450) /uL Baso # (Auto) 0 (0-100) /uL PT 16.4 H (9.4-12.5) SECONDS INR 1.4 H (0.9-1.3) APTT 32 (25.1-36.5) SECONDS Sodium 141 (137-145) mmol/L Potassium 2.7 L* (3.4-5.1) mmol/L Chloride 101 (98-107) mmol/L Carbon Dioxide 31 (22-32) mmol/L BUN 22 H (9-20) mg/dL Creatinine 0.67 (0.66-1.25) mg/dL Estimated GFR > 60 (>60) mL/min BUN/Creatinine Ratio 32.8 H (6-22) Glucose 126 H (80-110) mg/dL Lactate 2.7 H (0.7-2.1) mmol/L Calcium 8.8 (8.4-10.2) mg/dL Total Bilirubin 6.1 H (0.2-1.3) mg/dL AST 120 H (17-59) IU/L ALT 61 H (<50) IU/L Alkaline Phosphatase 184 H (38-126) U/L Total Creatine Kinase 115 (55-170) U/L Troponin I 0.072 H (0.01-0.034) ng/mL Total Protein 6.7 (6.3-8.2) g/dL Albumin 3.4 L (3.5-5.0) g/dL Globulin 3.3 (1.7-4.1) g/dL Albumin/Globulin Ratio 1.0 (1.0-2.8) Lipase 25 (23-300) U/L Procalcitonin 1.12 H (<0.5) ng/mL TSH 0.573 (0.47-4.68) uIU/mL Urine Color Urine Appearance Urine pH (4.5-8.0) Ur Specific [place] (1.000-1.035) Urine Protein (Negative) Urine Glucose (UA) (Negative) g/dL Urine Ketones (NEGATIVE) Urine Occult Blood (Negative) Urine Nitrate (Negative) Urine Bilirubin (NEGATIVE) Ur Bilirubin Confirm Urine Urobilinogen (0.2) E.U./dL Ur Leukocyte Esterase (NEGATIVE) Urine RBC (0-5/HPF) Urine WBC (0-5/HPF) Ur Squamous Epith Cells (0-5/HPF) Ur Transition Epith Cell (0-5/HPF) Urine Bacteria (None) Ur Culture Indicated? Vol Urine Centrifuged Chlamy pneumoniae PCR Not detected (Not Detect) Adenovirus (PCR) Not detected (Not Detect) B.parapertussis DNA PCR Not detected (Not Detecte) Coronavirus OC43 (PCR) Not detected (Not Detect) Coronavirus HKU1 (PCR) Not detected (Not Detect) Coronavirus 229E (PCR) Not detected (Not Detect) SARS-CoV-2 (PCR) Not detected (Not Detecte) Coronavirus NL63 (PCR) Not detected (Not Detect) Human Metapneumovir PCR Not detected (Not Detect) Influenza Type A (PCR) Not detected (Not Detect) Influenza Type B (PCR) Not detected (Not Detect) M. pneumoniae (PCR) Not detected (Not Detect) Parainfluenza 1 (PCR) Not detected (Not Detect) Parainfluenza 2 (PCR) Not detected (Not Detect) Parainfluenza 3 (PCR) Not detected (Not Detect) Parainfluenza 4 (PCR) Not detected (Not Detect) RSV (PCR) Not detected (Not Detect) Entero/Rhino (PCR) Not detected (Not Detect) 11/04/23 11/04/23 11/04/23 Range/Units 08:44 09:57 14:30 WBC (4.5-11.0) X10^3/uL RBC (4.5-5.9) X10^6/uL Hgb (13.5-17.5) g/dL Hct (41-53) % MCV (80-100) fL MCH (26-34) PG MCHC (30-36) % RDW (11.6-14.8) % Plt Count (150-400) X10^3/uL Neut % (Auto) (50-75) % Lymph % (Auto) (25-40) % [place] % (Auto) (3-14) % Eos % (Auto) (2-4) % Baso % (Auto) (0-2) % Neut # (Auto) (1328-8404) /uL Lymph # (Auto) (3999-6239) /uL [place] # (Auto) (0-900) /uL Eos # (Auto) (0-450) /uL Baso # (Auto) (0-100) /uL PT (9.4-12.5) SECONDS INR (0.9-1.3) APTT (25.1-36.5) SECONDS Sodium 141 (137-145) mmol/L Potassium 2.9 L (3.4-5.1) mmol/L Chloride 105 (98-107) mmol/L Carbon Dioxide 30 (22-32) mmol/L BUN 23 H (9-20) mg/dL Creatinine 0.84 (0.66-1.25) mg/dL Estimated GFR > 60 (>60) mL/min BUN/Creatinine Ratio 27.4 H (6-22) Glucose 114 H (80-110) mg/dL Lactate 1.4 (0.7-2.1) mmol/L Calcium 7.8 L (8.4-10.2) mg/dL Total Bilirubin 6.1 H (0.2-1.3) mg/dL AST 90 H (17-59) IU/L ALT 49 (<50) IU/L Alkaline Phosphatase 135 H (38-126) U/L Total Creatine Kinase (55-170) U/L Troponin I 0.121 H* (0.01-0.034) ng/mL Total Protein 5.7 L (6.3-8.2) g/dL Albumin 2.7 L (3.5-5.0) g/dL Globulin 3.0 (1.7-4.1) g/dL Albumin/Globulin Ratio 0.9 L (1.0-2.8) Lipase (23-300) U/L Procalcitonin (<0.5) ng/mL TSH (0.47-4.68) uIU/mL Urine Color Yellow Urine Appearance Clear Urine pH 5.0 (4.5-8.0) Ur Specific [place] 1.020 (1.000-1.035) Urine Protein 2+ H (Negative) Urine Glucose (UA) Trace H (Negative) g/dL Urine Ketones Trace H (NEGATIVE) Urine Occult Blood Negative (Negative) Urine Nitrate Positive H (Negative) Urine Bilirubin 3+ H (NEGATIVE) Ur Bilirubin Confirm TNP Urine Urobilinogen >=8.0 (0.2) E.U./dL Ur Leukocyte Esterase Negative (NEGATIVE) Urine RBC None seen (0-5/HPF) Urine WBC 1-5/hpf (0-5/HPF) Ur Squamous Epith Cells 1-5 /hpf (0-5/HPF) Ur Transition Epith Cell 0-1/hpf (0-5/HPF) Urine Bacteria None seen (None) Ur Culture Indicated? Cult not indicated Vol Urine Centrifuged 10ml (spun) Chlamy pneumoniae PCR (Not Detect) Adenovirus (PCR) (Not Detect) B.parapertussis DNA PCR (Not Detecte) Coronavirus OC43 (PCR) (Not Detect) Coronavirus HKU1 (PCR) (Not Detect) Coronavirus 229E (PCR) (Not Detect) SARS-CoV-2 (PCR) (Not Detecte) Coronavirus NL63 (PCR) (Not Detect) Human Metapneumovir PCR (Not Detect) Influenza Type A (PCR) (Not Detect) Influenza Type B (PCR) (Not Detect) M. pneumoniae (PCR) (Not Detect) Parainfluenza 1 (PCR) (Not Detect) Parainfluenza 2 (PCR) (Not Detect) Parainfluenza 3 (PCR) (Not Detect) Parainfluenza 4 (PCR) (Not Detect) RSV (PCR) (Not Detect) Entero/Rhino (PCR) (Not Detect) 11/05/23 Range/Units 06:01 WBC 9.9 (4.5-11.0) X10^3/uL RBC 3.49 L (4.5-5.9) X10^6/uL Hgb 11.2 L (13.5-17.5) g/dL Hct 32.2 L (41-53) % MCV 92.3 (80-100) fL MCH 32.1 (26-34) PG MCHC 34.8 (30-36) % RDW 14.5 (11.6-14.8) % Plt Count 91 L (150-400) X10^3/uL Neut % (Auto) 84.0 H (50-75) % Lymph % (Auto) 8.3 L (25-40) % [place] % (Auto) 7.3 (3-14) % Eos % (Auto) 0.1 L (2-4) % Baso % (Auto) 0.3 (0-2) % Neut # (Auto) 8400 H (5388-4578) /uL Lymph # (Auto) 800 L (1263-0978) /uL [place] # (Auto) 700 (0-900) /uL Eos # (Auto) 0 (0-450) /uL Baso # (Auto) 0 (0-100) /uL PT (9.4-12.5) SECONDS INR (0.9-1.3) APTT (25.1-36.5) SECONDS Sodium 142 (137-145) mmol/L Potassium 3.3 L (3.4-5.1) mmol/L Chloride 109 H (98-107) mmol/L Carbon Dioxide 26 (22-32) mmol/L BUN 25 H (9-20) mg/dL Creatinine 0.69 (0.66-1.25) mg/dL Estimated GFR > 60 (>60) mL/min BUN/Creatinine Ratio 36.2 H (6-22) Glucose 107 (80-110) mg/dL Lactate (0.7-2.1) mmol/L Calcium 7.7 L (8.4-10.2) mg/dL Total Bilirubin 3.4 H (0.2-1.3) mg/dL AST 70 H (17-59) IU/L ALT 40 (<50) IU/L Alkaline Phosphatase 113 (38-126) U/L Total Creatine Kinase (55-170) U/L Troponin I 0.087 H (0.01-0.034) ng/mL Total Protein 5.2 L (6.3-8.2) g/dL Albumin 2.4 L (3.5-5.0) g/dL Globulin 2.8 (1.7-4.1) g/dL Albumin/Globulin Ratio 0.9 L (1.0-2.8) Lipase 91 D (23-300) U/L Procalcitonin 1.24 H (<0.5) ng/mL TSH (0.47-4.68) uIU/mL Urine Color Urine Appearance Urine pH (4.5-8.0) Ur Specific Graton (1.000-1.035) Urine Protein (Negative) Urine Glucose (UA) (Negative) g/dL Urine Ketones (NEGATIVE) Urine Occult Blood (Negative) Urine Nitrate (Negative) Urine Bilirubin (NEGATIVE) Ur Bilirubin Confirm Urine Urobilinogen (0.2) E.U./dL Ur Leukocyte Esterase (NEGATIVE) Urine RBC (0-5/HPF) Urine WBC (0-5/HPF) Ur Squamous Epith Cells (0-5/HPF) Ur Transition Epith Cell (0-5/HPF) Urine Bacteria (None) Ur Culture Indicated? Vol Urine Centrifuged Chlamy pneumoniae PCR (Not Detect) Adenovirus (PCR) (Not Detect) B.parapertussis DNA PCR (Not Detecte) Coronavirus OC43 (PCR) (Not Detect) Coronavirus HKU1 (PCR) (Not Detect) Coronavirus 229E (PCR) (Not Detect) SARS-CoV-2 (PCR) (Not Detecte) Coronavirus NL63 (PCR) (Not Detect) Human Metapneumovir PCR (Not Detect) Influenza Type A (PCR) (Not Detect) Influenza Type B (PCR) (Not Detect) M. pneumoniae (PCR) (Not Detect) Parainfluenza 1 (PCR) (Not Detect) Parainfluenza 2 (PCR) (Not Detect) Parainfluenza 3 (PCR) (Not Detect) Parainfluenza 4 (PCR) (Not Detect) RSV (PCR) (Not Detect) Entero/Rhino (PCR) (Not Detect) Imaging Data CT scan - head: Radiologist's Impression: PROCEDURE: CT HEAD/BRAIN WO CON INDICATIONS: altered mental status TECHNIQUE: Noncontrast 4.5 mm thick angled axial sections acquired from the foramen magnum to the vertex, with coronal and sagittal reformats. For radiation dose reduction, the following was used: automated exposure control, adjustment of mA and/or kV according to patient size. COMPARISON: [facility], CT, CT HEAD/BRAIN WO CON, 09/24/2023, 7:49. FINDINGS: Image quality: Diagnostic. CSF spaces: Basal cisterns are patent. No extra-axial fluid collections. The ventricles are symmetric in size and shape. Brain: Stable punctate echogenic focus within the right frontal lobe, suggestive of calcification or hemosiderin. No intracranial bleeds or masses. There is cerebral volume loss for age, with resultant ventricular and sulcal prominence. There are periventricular and deep white matter chronic small vessel ischemic changes. There is intracranial internal carotid artery atherosclerosis. Skull and face: Calvarium and visualized facial bones appear intact, without suspicious lesions. Lens replacements. Sinuses: Visualized sinuses and mastoids are clear. IMPRESSION: No acute intracranial pathology. Stable echogenic focus within the right frontal lobe, suggestive of calcification or hemosiderin. Dictated by: Miguel Martino M.D. on 11/04/2023 at 9:06 MRCP: Radiologist's Impression: PROCEDURE: MR ABDOMEN WO/W CON INDICATIONS: sepsis, elevated lfts, CBD is 8.8mm TECHNIQUE: Coronal HASTE, axial 2D FLASH in- and [id number]; axial breath-hold T2 FSE. Dynamic axial VIBE during the administration of contrast; post-contrast coronal VIBE or 2D FLASH with fat saturation from the hepatic dome to the iliac crests. Restricted diffusion weighted imaging and ADC. 20 cc ProHance IV contrast. COMPARISON: [facility], US, US ABDOMEN COMPLETE, 11/04/2023, 9:08. FINDINGS: Image quality: Fair. Lung bases: No pleural effusion. Gynecomastia. Liver: No solid mass. Gallbladder: Dilated. Small gallstone, (4/23). Layering sludge. Possible mild thickening or diverticulum at the superior fundus, (3/11). Increased conspicuity of the cystic duct. No convincing pericholecystic fluid. Biliary ducts: CBD is not dilated. No intrahepatic biliary ductal dilatation. Pancreas: No ductal dilation. No mass or cyst identified. Spleen: Size is within normal limits. Adrenal Glands: No adrenal nodules. Kidneys and Ureters: No hydronephrosis. No solid mass. No complex renal cystic lesion which requires follow up. Stomach and Bowel: Normal colonic caliber, without significant wall thickening. Normal appendix. Peritoneum: No abnormal intraperitoneal fluid. No free air. Ventral Wall: No hernia. Abdominal Nodes: No retroperitoneal or mesenteric adenopathy by size criteria. Vessels: Aorta and inferior vena cava are normal in size. Bones: No aggressive osseous abnormality. IMPRESSION: Image quality is fair. 1. Extrahepatic and intrahepatic bile ducts are within normal limits. 2. Cystic duct is prominent. The gallbladder is dilated. There is a small gallstone. Layering sludge. No pericholecystic fluid. 3. No pancreatic ductal dilatation. Dictated by: Garfield Harris M.D. 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 Patient is alert, can give me his name but appears very dry on examination. Nontender but does feel warm. Patient is tachycardic, hypotensive, requiring 2 L nasal cannula which appears to be new, afebrile initially on exam with no respiratory distress. Patient does have POLST form that indicates DNR/DNI with limited treatment. Patient indicates this as well. Patient received fluids Catheter in place for strict I's and O's Talked with patient, he is alert but clearly tired. Discussed if needed transfer for ERCP he states just let me . Patient not at bedside. He is okay with labs and antibiotics. Labs labs show white count 8.6 hemoglobin of 14 platelets are 112 patient has been on the low end in the 130s. INR is 1.4, potassium is 2.7 with a sodium of 141 CO2 of 31 BUN 22 and a creatinine of 0.67, glucose is 126 and she will lactate was 2.7 trending down words to 1.4. Bilirubin 6.1 with an AST of 120 ALT is 61 and alk-phos of 184. Troponins indeterminate 0.072, procalcitonin is positive at 0.112 with a normal TSH. UA shows trace protein, patient has had minimal output. Respiratory panel is negative Head CT head CT shows no acute change stable echogenic focus right frontal lobe suggesting calcification hemosiderin. Chest x-ray chest x-ray negative EKG shows AFib with RVR nonspecific change no new ST elevation or depression, this appears to be new. Patient had elevation in LFTs with significant bilirubin, fevers and changes consistent with infection abdominal ultrasound was obtained and shows normal kidneys, liver not well visualized but grossly within normal limits with the common bile duct dilated 8.8 mm no stones on ultrasound. Spoke with patients he is DNR/DNI but she is open to MRCP and even potential ERCP and transfer. Patient is sent for MRCP Patient had to have his catheter removed for MR and was replaced after that as it was temp falling. Patient did drop his blood pressure down into the 60s during this. While receiving fluids. Patient's arrived after discussion with patient he does not wish for transfer, he would prefer to be made comfort measure. Discussed with we will get MRCP results and discuss final plans but he is DNR/DNI no pressors at this point and we will discuss comfort measures after more information available. He does take midodrine and fludrocortisone so we will give a dose of Solu-Cortef and a midodrine here. MRCP extra and intrahepatic bile ducts within normal limits cystic duct is prominent gallbladder dilated small gallstone layer leak sludge no pericholecystic fluid. No pancreatic ductal dilation. Spoke with Dr. Ventura, general surgery who would be happy to follow with patient but with medicine admit for potential cholecystectomy. Spoke with Dr. Winkler, hospitalist, asked for repeat troponin and CMP. These were obtained troponin is now positive, CMP is about the same patient had just completed his potassium so additional was ordered as it was low at 2.[address]. [address] Winkler about patient and family goals of care have had several discussions with the he is not comfort measure she is okay with antibiotics she does not wish to continue with pressors or intubation or CPR. Dr. Winkler in department, met with patient's after discussion we will can 10 you DNR/DNI but we will give pressors and transfer for definitive care for cholangitis. Dr. Winkler states patient was not able to give input into goals of care. Continue with fluid resuscitation, nor epi started. We will call for transfer. 195411/04/23 I, Gino Ortiz, assumed care of this patient from Dr. Reaves at approximately 6:00 p.m.. I have reviewed the data and heard report from her in detail. I just spoke to Dr. Guerra at [facility] in [address] who agrees to accept the patient to the ICU but there is no bed available and they do not expect to have a bed till tomorrow morning. The patient currently on pressor with some maintenance fluids broad-spectrum antibiotics. 031 I am informed by nursing staff that in fact the patient never required norepinephrine. Pressure has recovered spontaneously. Spoke to Dr. Parsons just now who agrees to admit the patient. Dr. Abreu who reviewed case at [facility], no need for transfer no need for ERCP, can admit here. Antibiotics. Supportive care only. He was on Augmentin recently, could cause some of the elevations. But wait, would ultimately need a liver biopsy but not now. Dr. Martinez-signed out to me by Dr. Robledo I have seen evaluated patient myself. Currently sleeping. He has had increased urine output throughout the night never actually required vasopressor support. MRCP is negative. This morning he has improved bilirubin and laboratory values. GI was consulted last night no need for transfer or ERCP. May continue with antibiotics. Dr. Penny updated on patient's symptoms test results and kindly accepts patient Discharge Plan Departure Patient Disposition: Admitted As Inpatient Clinical Impression: Sepsis, Cholangitis, Acute UTI Admit Date/Time: 11/05/23 08:25 Admit Provider: Favian Penny
--- NOTE | 2023-11-04 08:15 | DI.RAD.S_ITS ---
PROCEDURE: XR CHEST 1V INDICATIONS: altered mental status TECHNIQUE: One view of the chest was acquired. COMPARISON: [facility], , XR CHEST 1V, 09/23/2023, 12:54. [facility], CR, XR CHEST 1V, 08/22/2023, 14:54. FINDINGS: Surgical changes and devices: None. Lungs and pleura: Lungs are clear. No pleural effusions or pneumothorax. Mediastinum: Mediastinal contours appear normal. Heart size is normal. Bones and chest wall: No suspicious bony lesions. Overlying soft tissues appear unremarkable. IMPRESSION: No acute cardiopulmonary abnormality is seen. Dictated by: Miguel Martino M.D. on 11/04/2023 at 9:03 Approved by: Miguel Martino M.D. on 11/04/2023 at 9:04
--- NOTE | 2023-11-04 08:15 | DI.CT.S_ITS ---
PROCEDURE: CT HEAD/BRAIN WO CON INDICATIONS: altered mental status TECHNIQUE: Noncontrast 4.5 mm thick angled axial sections acquired from the foramen magnum to the vertex, with coronal and sagittal reformats. For radiation dose reduction, the following was used: automated exposure control, adjustment of mA and/or kV according to patient size. COMPARISON: [facility], CT, CT HEAD/BRAIN WO CON, 09/24/2023, 7:49. FINDINGS: Image quality: Diagnostic. CSF spaces: Basal cisterns are patent. No extra-axial fluid collections. The ventricles are symmetric in size and shape. Brain: Stable punctate echogenic focus within the right frontal lobe, suggestive of calcification or hemosiderin. No intracranial bleeds or masses. There is cerebral volume loss for age, with resultant ventricular and sulcal prominence. There are periventricular and deep white matter chronic small vessel ischemic changes. There is intracranial internal carotid artery atherosclerosis. Skull and face: Calvarium and visualized facial bones appear intact, without suspicious lesions. Lens replacements. Sinuses: Visualized sinuses and mastoids are clear. IMPRESSION: No acute intracranial pathology. Stable echogenic focus within the right frontal lobe, suggestive of calcification or hemosiderin. Dictated by: Miguel Martino M.D. on 11/04/2023 at 9:06 Approved by: Miguel Martino M.D. on 11/04/2023 at 9:08
[2023-11-04 08:27] LABS: Add Manual Diff / Slide Review NO; Basophils Absolute Auto 0 /uL (0-100); Basophils Percent Auto 0.1 % (0-2); Eosinophils Absolute Auto 0 /uL (0-450); Eosinophils Percent Auto 0.1 % (2-4); Hematocrit 41.2 % (41-53); Lymphocytes Absolute Auto 400 /uL (1100-4500); Lymphocytes Percent Auto 4.5 % (25-40); Mean Corpuscular Hemoglobin 31.5 PG (26-34); Mean Corpuscular Volume 92.6 fL (80-100); Monocytes Absolute Auto 600 /uL (0-900); Neutrophils Absolute Auto 7600 /uL (1500-7000); Neutrophils Percent Auto 88.3 % (50-75); Platelet Count 112 X10^3/uL (150-400); Red Blood Cell Count 4.45 X10^6/uL (4.5-5.9); Red Cell Distribution Width 14.1 % (11.6-14.8); White Blood Cell Count 8.6 X10^3/uL (4.5-11.0)
[2023-11-04] MEDS: SODIUM CHLORIDE 0.9% 1,000 ML 1000 ML IV ×2 (08:28→18:00)
[2023-11-04 08:35] LABS: INR 1.4 (0.9-1.3); Prothrombin Time 16.4 SECONDS (9.4-12.5)
[2023-11-04 08:37] LABS: PTT Partial Thromboplastin Tim 32 SECONDS (25.1-36.5)
[2023-11-04 08:39] LABS: Alanine Aminotransferase 61 IU/L (<50); Albumin 3.4 g/dL (3.5-5.0); Alkaline Phosphatase 184 U/L (38-126); Aspartate Aminotransferase 120 IU/L (17-59); BUN Creatinine Ratio 32.8 (6-22); Bilirubin Total 6.1 mg/dL (0.2-1.3); Blood Urea Nitrogen 22 mg/dL (9-20); Calcium 8.8 mg/dL (8.4-10.2); Carbon Dioxide 31 mmol/L (22-32); Chloride 101 mmol/L (98-107); Creatine Kinase 115 U/L (55-170); Estimated Glomerular Filt Rate > 60 mL/min (>60); Globulin 3.3 g/dL (1.7-4.1); Glucose 126 mg/dL (80-110); HEMOLYSIS < 15 (0-50); Lactate (Lactic Acid) 2.7 mmol/L (0.7-2.1); Sodium 141 mmol/L (137-145); Total Protein 6.7 g/dL (6.3-8.2)
[2023-11-04 08:50] LABS: Troponin I 0.072 ng/mL (0.01-0.034)
[2023-11-04] MEDS: ACETAMINOPHEN 650 MG SUPP PR (08:50)
[2023-11-04 08:51] LABS: Potassium 2.7 mmol/L (3.4-5.1)
[2023-11-04 08:55] LABS: Procalcitonin 1.12 ng/mL (<0.5)
--- NOTE | 2023-11-04 08:55 | DI.US.S_ITS ---
PROCEDURE: US ABDOMEN COMPLETE INDICATIONS: decreased urine output, elevated lfts TECHNIQUE: Real-time scanning was performed of the abdominal and retroperitoneal organs, with image documentation. COMPARISON: [facility], US, US ABDOMEN LIMITED, 06/16/2023, 7:13. FINDINGS: Suboptimal exam secondary to quadrant patient and limited penetration. Liver: Liver is normal in size and homogeneous in echotexture. Gallbladder: Not well seen, grossly within normal limits. Biliary ducts: Intrahepatic bile ducts are non-dilated. Extrahepatic bile duct caliber measures 8.8 mm. Normal is 6-7 mm or less in diameter, or 10 mm or less post-cholecystectomy. Pancreas: Not well seen secondary to overlying bowel gas. Spleen: Spleen is normal in size and homogeneous in echotexture. Kidneys: Kidneys are normal in size and echotexture. Right kidney measures 10.0 cm long; left kidney measures 10.9 cm long. No hydronephrosis or nephrolithiasis. No solid masses. Aorta: Visualized aorta is normal in caliber at less than 3 cm. The proximal and distal portions of the aorta are not well seen. Iliacs: Not seen. IVC: Not seen. Miscellaneous: No free abdominal fluid. IMPRESSION: 1. Limited exam as above. 2. Kidneys appear grossly within normal limits. 3. Liver is not well visualized but appears grossly within normal limits. 4. Common bile duct is dilated at 8.8 mm. No stones are seen by ultrasound. Recommend correlation with lab values. Dictated by: Miguel Martino M.D. on 11/04/2023 at 9:37 Approved by: Miguel Martino M.D. on 11/04/2023 at 9:41
[2023-11-04 09:07] LABS: Thyroid Stimulating Hormone 0.573 uIU/mL (0.47-4.68)
[2023-11-04] MEDS: PIPERACILLIN/TAZO 4.5 GM in SODIUM CHLORIDE 0.9% 100 ML IV ×2 (09:35→19:56)
[2023-11-04] MEDS: SODIUM CHLORIDE 0.9% 814.2 ML IV (09:35)
[2023-11-04] MEDS: POTASSIUM CHLORIDE IN WATER 10 MEQ/100 ML PIGGYBACK 100 MEQ IV ×8 (09:55→22:06)
[2023-11-04 10:03] LABS: Reflexed Lactate in 2 Hours Y
--- NOTE | 2023-11-04 10:04 | DI.MRI.S_ITS ---
PROCEDURE: MR ABDOMEN WO/W CON INDICATIONS: sepsis, elevated lfts, CBD is 8.8mm TECHNIQUE: Coronal HASTE, axial 2D FLASH in- and [id number]; axial breath-hold T2 FSE. Dynamic axial VIBE during the administration of contrast; post-contrast coronal VIBE or 2D FLASH with fat saturation from the hepatic dome to the iliac crests. Restricted diffusion weighted imaging and ADC. 20 cc ProHance IV contrast. COMPARISON: [facility], US, US ABDOMEN COMPLETE, 11/04/2023, 9:08. FINDINGS: Image quality: Fair. Lung bases: No pleural effusion. Gynecomastia. Liver: No solid mass. Gallbladder: Dilated. Small gallstone, (4/23). Layering sludge. Possible mild thickening or diverticulum at the superior fundus, (3/11). Increased conspicuity of the cystic duct. No convincing pericholecystic fluid. Biliary ducts: CBD is not dilated. No intrahepatic biliary ductal dilatation. Pancreas: No ductal dilation. No mass or cyst identified. Spleen: Size is within normal limits. Adrenal Glands: No adrenal nodules. Kidneys and Ureters: No hydronephrosis. No solid mass. No complex renal cystic lesion which requires follow up. Stomach and Bowel: Normal colonic caliber, without significant wall thickening. Normal appendix. Peritoneum: No abnormal intraperitoneal fluid. No free air. Ventral Wall: No hernia. Abdominal Nodes: No retroperitoneal or mesenteric adenopathy by size criteria. Vessels: Aorta and inferior vena cava are normal in size. Bones: No aggressive osseous abnormality. IMPRESSION: Image quality is fair. 1. Extrahepatic and intrahepatic bile ducts are within normal limits. 2. Cystic duct is prominent. The gallbladder is dilated. There is a small gallstone. Layering sludge. No pericholecystic fluid. 3. No pancreatic ductal dilatation. Dictated by: Garfield Harris M.D. on 11/04/2023 at 12:18 Approved by: Garfield Harris M.D. on 11/04/2023 at 12:32
[2023-11-04 10:16] LABS: Lactate 2HR (Lactic Acid Rflx) 1.4 mmol/L (0.7-2.1)
[2023-11-04 11:02] LABS: Adenovirus Not Detected (Not Detect); B. parapertussis Not Detected (Not Detecte); Bordetella pertussis Not Detected (Not Detect); Chlamydophila pneumoniae Not Detected (Not Detect); Coronavirus 229E Not Detected (Not Detect); Coronavirus HKU1 Not Detected (Not Detect); Coronavirus NL 63 Not Detected (Not Detect); Coronavirus OC43 Not Detected (Not Detect); Human Metapneumovirus Not Detected (Not Detect); Human Rhinovirus/Enterovirus Not Detected (Not Detect); Influenza A Not Detected (Not Detect); Influenza B Not Detected (Not Detect); Mycoplasma pneumoniae Not Detected (Not Detect); Parainfluenza Virus 1 Not Detected (Not Detect); Parainfluenza Virus 2 Not Detected (Not Detect); Parainfluenza Virus 3 Not Detected (Not Detect); Parainfluenza Virus 4 Not Detected (Not Detect); Respiratory Syncytial Virus Not Detected (Not Detect); SARS- CoV-2 Not Detected (Not Detecte)
[2023-11-04] MEDS: MIDODRINE HCL 5 MG TABLET 10 MG PO ×2 (12:11→19:56)
[2023-11-04] MEDS: HYDROCORTISONE 100 MG/2 ML VIAL INJ (12:11)
[2023-11-04 12:42] LABS: Appearance Urine UA CLEAR; Bilirubin Urine UA 3+ (NEGATIVE); Color Urine UA YELLOW; Glucose Urine UA TRACE g/dL (Negative); Ketones Urine UA TRACE (NEGATIVE); Leukocyte Esterase Urine UA NEGATIVE (NEGATIVE); Nitrite Urine UA POSITIVE (Negative); Occult Blood Urine UA NEGATIVE (Negative); Protein Urine UA 2+ (Negative); Urobilinogen Urine UA >=8.0 E.U./dL (0.2)
[2023-11-04 12:52] LABS: Bacteria Urine None Seen; RBC Urine None Seen (0-5/HPF); Squamous Epithelial Cell Urine 1-5 /HPF (0-5/HPF); Transitional Epi Cells Urine 0-1/HPF (0-5/HPF); Urine Volume 10mL (spun); WBC Urine 1-5/HPF (0-5/HPF)
[2023-11-04 12:53] LABS: Culture Indicated Urine Cult Not Indicated
[2023-11-04 13:11] LABS: Lipase 25 U/L (23-300)
[2023-11-04 14:52] LABS: Alanine Aminotransferase 49 IU/L (<50); Albumin 2.7 g/dL (3.5-5.0); Albumin Globulin Ratio 0.9 (1.0-2.8); Alkaline Phosphatase 135 U/L (38-126); Aspartate Aminotransferase 90 IU/L (17-59); BUN Creatinine Ratio 27.4 (6-22); Bilirubin Total 6.1 mg/dL (0.2-1.3); Blood Urea Nitrogen 23 mg/dL (9-20); Calcium 7.8 mg/dL (8.4-10.2); Carbon Dioxide 30 mmol/L (22-32); Chloride 105 mmol/L (98-107); Estimated Glomerular Filt Rate > 60 mL/min (>60); Glucose 114 mg/dL (80-110); HEMOLYSIS < 15 (0-50); Potassium 2.9 mmol/L (3.4-5.1); Sodium 141 mmol/L (137-145); Total Protein 5.7 g/dL (6.3-8.2)
[2023-11-04 15:34] LABS: Troponin I 0.121 ng/mL (0.01-0.034)
--- NOTE | 2023-11-04 17:02 | P.CONS_ITS ---
History of Present Illness Consult details Date Patient Seen: 11/04/23 Time Patient Seen: 17:02 Chief complaint: Alt LOC Reason for consult: cholangitis Requesting provider: Charmaine Reaves Narrative: Carlos Jansen is an 82yo M with PMH of orthostatic hypotension, remote ICH, previous alcohol use, alcoholic pancreatitis, HLD, fatty liver, GERD, and chronic thrombocytopenia who was admitted for a finger amputation in early September and was transferred to local SNF. He was on midodrine at that time for orthostatic hypotension. He was improving for a few weeks or so at rehab, was getting stronger according to his spouse Margarita. Over the last week his appetite has not been great and he has had decreased activity level. For the last two days he has been nauseous, but has not had emesis or complained of abdominal pain per spouse. Patient is minimally alert at the time of my evaluation, unable to contribute to history. In the emergency room, patient has been hypotensive, did receive midodrine and fluids but BP remains soft. Labs were notable for T bili of 6.1 with elevated AST/ALT. Abdominal US showed a CBD dilated at 8.8 mm but no stones. Abdominal MRI showed a prominent cystic duct and dilated gallbladder with a small gallstone. Troponin has increased to 0.121. Patient was febrile as high as 103.6 in the ER. I was consulted for possible admission, but given probable cholangitis recommended transfer. Goals of status was additionally not clear. I discussed goals of care with the patient's spouse. She would like to do interventions short of CPR and intubations if there is potential for recovery. She understands that he may worsen, and if there appears to be a minimal chance of recovery she is open to ongoing goals of care discussions. She would be open to medications to keep his BP up including pressors. She is open to procedures including possible ERCP, and cholecystectomy. Meds Home Medications and Allergies Home Medications Medication Instructions Recorded Confirmed Type omeprazole 20 mg capsule,delayed 20 mg PO DAILY #90 caps 06/09/23 09/23/23 Rx release levetiracetam 500 mg tablet 500 mg PO BID #180 tabs 07/28/23 09/23/23 Rx fludrocortisone 0.1 mg tablet 0.2 mg (2 x 0.1 mg) PO DAILY #180 12/04/23 01/09/24 Rx tabs Transport Chair #1 ea 08/20/23 09/23/23 Rx ondansetron HCl 4 mg tablet 4 mg PO Q6HR PRN Nausea And 09/23/23 09/23/23 History Vomiting amoxicillin 875 mg-potassium 1 tab PO BID #14 tabs 09/27/23 Rx clavulanate 125 mg tablet aspirin 81 mg tablet,delayed 81 mg PO DAILY #30 tabs 09/27/23 Rx release atorvastatin 20 mg tablet 80 mg (4 x 20 mg) PO BEDTIME #30 09/27/23 Rx tabs midodrine 5 mg tablet 10 mg (2 x 5 mg) PO 0800,1200,1600 09/27/23 Rx #90 tabs oxycodone 5 mg tablet 5 mg PO Q4HR PRN Pain, Moderate 09/27/23 Rx (4-6) #20 tabs potassium chloride 20 mEq 40 meq (2 x 20 mEq) PO DAILYCC #14 09/27/23 Rx tablet,extended tabs release(part/cryst) (Klor-Con M) sodium chloride 1,000 mg soluble 1,000 mg PO TIDWM #30 tabs 09/27/23 Rx tablet Allergies Allergy/AdvReac Type Severity Reaction Status Date / Time No Known Allergies Allergy Verified 11/04/23 08:02 Review of Systems Review of Systems Narrative: Unable to perform with patient, otherwise negative with spouse as noted above. Exam Vital Signs (past 8 hours): - 11/04/23 09:10 11/04/23 09:20 11/04/23 09:30 Temperature 102.9 F H 103.1 F H 103.3 F H Pulse Rate 164 H 127 H 134 H Respiratory Rate 30 H 31 H 32 H Blood Pressure Pulse Oximetry 99 99 97 Oxygen Delivery Method Nasal Cannula Oxygen Flow Rate 3 11/04/23 09:31 11/04/23 09:31 11/04/23 09:40 Temperature 103.5 F H 103.5 F H Pulse Rate 128 H 127 H Respiratory Rate 31 H 31 H Blood Pressure 132/58 L Pulse Oximetry 97 96 Oxygen Delivery Method Oxygen Flow Rate 11/04/23 09:49 11/04/23 09:49 11/04/23 09:50 Temperature 103.6 F H 103.6 F H Pulse Rate 114 H 128 H Respiratory Rate 30 H 29 H Blood Pressure 97/53 L Pulse Oximetry 96 96 Oxygen Delivery Method Nasal Cannula Oxygen Flow Rate 3 11/04/23 09:51 11/04/23 09:51 11/04/23 09:54 Temperature 103.6 F H 103.6 F H Pulse Rate 118 H Respiratory Rate 27 H Blood Pressure 93/58 L Pulse Oximetry 95 Oxygen Delivery Method Oxygen Flow Rate 11/04/23 10:00 11/04/23 10:00 11/04/23 10:10 Temperature 103.5 F H Pulse Rate 132 H Respiratory Rate 28 H Blood Pressure 94/55 L 90/51 L Pulse Oximetry 96 Oxygen Delivery Method Nasal Cannula Oxygen Flow Rate 3 11/04/23 10:10 11/04/23 10:20 11/04/23 10:20 Temperature 103.3 F H 102.9 F H Pulse Rate 124 H 133 H Respiratory Rate 28 H 28 H Blood Pressure 101/61 Pulse Oximetry 97 96 Oxygen Delivery Method Nasal Cannula Oxygen Flow Rate 3 11/04/23 11:08 11/04/23 11:23 11/04/23 11:24 Temperature Pulse Rate 141 H 97 H Respiratory Rate 26 H 24 Blood Pressure 68/44 L Pulse Oximetry 94 Oxygen Delivery Method Oxygen Flow Rate 11/04/23 11:24 11/04/23 11:25 11/04/23 11:25 Temperature Pulse Rate 102 H 104 H Respiratory Rate 24 24 Blood Pressure 76/47 L Pulse Oximetry 93 92 Oxygen Delivery Method Nasal Cannula Oxygen Flow Rate 3 11/04/23 11:30 11/04/23 11:33 11/04/23 11:33 Temperature Pulse Rate 113 H 86 Respiratory Rate 23 23 Blood Pressure 75/46 L Pulse Oximetry 92 93 Oxygen Delivery Method Nasal Cannula Oxygen Flow Rate 3 11/04/23 11:41 11/04/23 11:41 11/04/23 11:50 Temperature 96.3 F L Pulse Rate 95 H Respiratory Rate 21 Blood Pressure 102/60 107/53 L Pulse Oximetry 98 Oxygen Delivery Method Oxygen Flow Rate 11/04/23 11:50 11/04/23 12:00 11/04/23 12:00 Temperature 98.8 F 99.5 F Pulse Rate 87 86 Respiratory Rate 21 20 Blood Pressure 107/56 L Pulse Oximetry 100 100 Oxygen Delivery Method Nasal Cannula Oxygen Flow Rate 3 11/04/23 12:10 11/04/23 12:10 11/04/23 12:20 Temperature 99.7 F H 99.7 F H Pulse Rate 85 84 Respiratory Rate 22 24 Blood Pressure 102/51 L Pulse Oximetry 100 99 Oxygen Delivery Method Oxygen Flow Rate 11/04/23 12:20 11/04/23 12:30 11/04/23 12:30 Temperature 99.7 F H Pulse Rate 78 Respiratory Rate 22 Blood Pressure 95/50 L 93/54 L Pulse Oximetry 99 Oxygen Delivery Method Nasal Cannula Oxygen Flow Rate 3 11/04/23 12:40 11/04/23 12:40 11/04/23 12:50 Temperature 99.7 F H Pulse Rate 83 Respiratory Rate 24 Blood Pressure 114/55 L 100/57 L Pulse Oximetry 100 Oxygen Delivery Method Oxygen Flow Rate 11/04/23 12:50 11/04/23 13:00 11/04/23 13:00 Temperature 99.7 F H 99.7 F H Pulse Rate 77 83 Respiratory Rate 21 21 Blood Pressure 98/53 L Pulse Oximetry 100 100 Oxygen Delivery Method Nasal Cannula Oxygen Flow Rate 3 11/04/23 13:10 11/04/23 13:10 11/04/23 13:20 Temperature 99.7 F H Pulse Rate 78 Respiratory Rate 21 Blood Pressure 92/55 L 81/46 L Pulse Oximetry 100 Oxygen Delivery Method Oxygen Flow Rate 11/04/23 13:20 11/04/23 13:21 11/04/23 13:21 Temperature 99.7 F H 99.7 F H Pulse Rate 74 77 Respiratory Rate 19 21 Blood Pressure 80/45 L Pulse Oximetry 99 99 Oxygen Delivery Method Nasal Cannula Oxygen Flow Rate 3 11/04/23 13:30 11/04/23 13:30 11/04/23 13:40 Temperature 99.7 F H Pulse Rate 76 Respiratory Rate 21 Blood Pressure 77/45 L 81/47 L Pulse Oximetry 98 Oxygen Delivery Method Nasal Cannula Oxygen Flow Rate 3 11/04/23 13:40 11/04/23 13:50 11/04/23 13:50 Temperature 99.5 F 99.3 F Pulse Rate 72 71 Respiratory Rate 20 20 Blood Pressure 88/50 L Pulse Oximetry 99 99 Oxygen Delivery Method Nasal Cannula Oxygen Flow Rate 3 11/04/23 14:00 11/04/23 14:00 11/04/23 14:10 Temperature 99.1 F Pulse Rate 74 Respiratory Rate 20 Blood Pressure 93/52 L 105/57 L Pulse Oximetry 99 Oxygen Delivery Method Oxygen Flow Rate 11/04/23 14:10 11/04/23 14:20 11/04/23 14:20 Temperature 99.0 F 98.8 F Pulse Rate 69 67 Respiratory Rate 18 17 Blood Pressure 116/59 L Pulse Oximetry 100 100 Oxygen Delivery Method Nasal Cannula Oxygen Flow Rate 3 11/04/23 14:30 11/04/23 14:30 11/04/23 14:40 Temperature 98.6 F Pulse Rate 65 Respiratory Rate 17 Blood Pressure 92/54 L 81/49 L Pulse Oximetry 100 Oxygen Delivery Method Nasal Cannula Oxygen Flow Rate 3 11/04/23 14:40 11/04/23 14:50 11/04/23 14:50 Temperature 98.6 F 98.6 F Pulse Rate 66 62 Respiratory Rate 18 18 Blood Pressure 81/48 L Pulse Oximetry 99 98 Oxygen Delivery Method Oxygen Flow Rate 11/04/23 15:00 11/04/23 15:00 11/04/23 15:10 Temperature 98.6 F Pulse Rate 64 Respiratory Rate 18 Blood Pressure 82/48 L 86/48 L Pulse Oximetry 98 Oxygen Delivery Method Nasal Cannula Oxygen Flow Rate 3 11/04/23 15:10 11/04/23 15:20 11/04/23 15:20 Temperature 98.4 F 98.2 F Pulse Rate 61 58 L Respiratory Rate 17 18 Blood Pressure 83/53 L Pulse Oximetry 98 99 Oxygen Delivery Method Nasal Cannula Oxygen Flow Rate 3 11/04/23 15:30 11/04/23 15:30 11/04/23 15:40 Temperature 98.1 F Pulse Rate 61 Respiratory Rate 17 Blood Pressure 84/52 L 127/63 Pulse Oximetry 99 Oxygen Delivery Method Oxygen Flow Rate 11/04/23 15:40 11/04/23 15:50 11/04/23 15:50 Temperature 97.9 F 97.7 F Pulse Rate 64 58 L Respiratory Rate 17 17 Blood Pressure 114/58 L Pulse Oximetry 100 100 Oxygen Delivery Method Nasal Cannula Oxygen Flow Rate 3 Oxygen Delivery Method Nasal Cannula Oxygen Flow Rate 3 Narrative Exam Narrative: Gen: acutely ill male, no acute distress. Awakens to voice but falls asleep almost immedicately. CV: tachycardic, irregularly irregular. Pulm: CTA b/l Abd: Soft, non-distended, no apparent tenderness Ext: trace b/l LE edema. Objective ECG Impression: Afib with RVR, nonspecific ST depressions precordial V3 lead. Labs 11/04/23 07:56 11/04/23 14:30 Labs: Laboratory Results - last 24 hr 11/04/23 11/04/23 11/04/23 07:48 07:56 08:35 WBC 8.6 RBC 4.45 L Hgb 14.0 Hct 41.2 MCV 92.6 MCH 31.5 MCHC 34.0 RDW 14.1 Plt Count 112 L Neut % (Auto) 88.3 H Lymph % (Auto) 4.5 L [place] % (Auto) 7.0 Eos % (Auto) 0.1 L Baso % (Auto) 0.1 Neut # (Auto) 7600 H Lymph # (Auto) 400 L [place] # (Auto) 600 Eos # (Auto) 0 Baso # (Auto) 0 PT 16.4 H INR 1.4 H APTT 32 Sodium 141 Potassium 2.7 L* Chloride 101 Carbon Dioxide 31 BUN 22 H Creatinine 0.67 Estimated GFR > 60 BUN/Creatinine Ratio 32.8 H Glucose 126 H Lactate 2.7 H Calcium 8.8 Total Bilirubin 6.1 H AST 120 H ALT 61 H Alkaline Phosphatase 184 H Total Creatine Kinase 115 Troponin I 0.072 H Total Protein 6.7 Albumin 3.4 L Globulin 3.3 Albumin/Globulin Ratio 1.0 Lipase 25 Procalcitonin 1.12 H TSH 0.573 Urine Color Urine Appearance Urine pH Ur Specific [place] Urine Protein Urine Glucose (UA) Urine Ketones Urine Occult Blood Urine Nitrate Urine Bilirubin Ur Bilirubin Confirm Urine Urobilinogen Ur Leukocyte Esterase Urine RBC Urine WBC Ur Squamous Epith Cells Ur Transition Epith Cell Urine Bacteria Ur Culture Indicated? Vol Urine Centrifuged Chlamy pneumoniae PCR Not detected Adenovirus (PCR) Not detected B.parapertussis DNA PCR Not detected Coronavirus OC43 (PCR) Not detected Coronavirus HKU1 (PCR) Not detected Coronavirus 229E (PCR) Not detected SARS-CoV-2 (PCR) Not detected Coronavirus NL63 (PCR) Not detected Human Metapneumovir PCR Not detected Influenza Type A (PCR) Not detected Influenza Type B (PCR) Not detected M. pneumoniae (PCR) Not detected Parainfluenza 1 (PCR) Not detected Parainfluenza 2 (PCR) Not detected Parainfluenza 3 (PCR) Not detected Parainfluenza 4 (PCR) Not detected RSV (PCR) Not detected Entero/Rhino (PCR) Not detected 11/04/23 11/04/23 11/04/23 08:44 09:57 14:30 WBC RBC Hgb Hct MCV MCH MCHC RDW Plt Count Neut % (Auto) Lymph % (Auto) [place] % (Auto) Eos % (Auto) Baso % (Auto) Neut # (Auto) Lymph # (Auto) [place] # (Auto) Eos # (Auto) Baso # (Auto) PT INR APTT Sodium 141 Potassium 2.9 L Chloride 105 Carbon Dioxide 30 BUN 23 H Creatinine 0.84 Estimated GFR > 60 BUN/Creatinine Ratio 27.4 H Glucose 114 H Lactate 1.4 Calcium 7.8 L Total Bilirubin 6.1 H AST 90 H ALT 49 Alkaline Phosphatase 135 H Total Creatine Kinase Troponin I 0.121 H* Total Protein 5.7 L Albumin 2.7 L Globulin 3.0 Albumin/Globulin Ratio 0.9 L Lipase Procalcitonin TSH Urine Color Yellow Urine Appearance Clear Urine pH 5.[address] [place] 1.020 Urine Protein 2+ H Urine Glucose (UA) Trace H Urine Ketones Trace H Urine Occult Blood Negative Urine Nitrate Positive H Urine Bilirubin 3+ H Ur Bilirubin Confirm TNP Urine Urobilinogen >=8.0 Ur Leukocyte Esterase Negative Urine RBC None seen Urine WBC 1-5/hpf Ur Squamous Epith Cells 1-5 /hpf Ur Transition Epith Cell 0-1/hpf Urine Bacteria None seen Ur Culture Indicated? Cult not indicated Vol Urine Centrifuged 10ml (spun) Chlamy pneumoniae PCR Adenovirus (PCR) B.parapertussis DNA PCR Coronavirus OC43 (PCR) Coronavirus HKU1 (PCR) Coronavirus 229E (PCR) SARS-CoV-2 (PCR) Coronavirus NL63 (PCR) Human Metapneumovir PCR Influenza Type A (PCR) Influenza Type B (PCR) M. pneumoniae (PCR) Parainfluenza 1 (PCR) Parainfluenza 2 (PCR) Parainfluenza 3 (PCR) Parainfluenza 4 (PCR) RSV (PCR) Entero/Rhino (PCR) FOR[facility]LY [facility], [facility] Medical History Hypotension Protein calorie malnutrition History of prostate cancer Seizure Thrombocytopenia Macrocytosis Alcoholic pancreatitis GERD (gastroesophageal reflux disease) Combined hyperlipidemia Falls frequently Intraparenchymal hemorrhage of brain Essential tremor Fatty liver Concussion Right fibular fracture Surgical History Status post radical cystoprostatectomy Status post colonoscopy S/P total hip arthroplasty Family History Father Prostate cancer Kidney problem Mother Old age Social History household members: spouse Tobacco & Substance Use Smoking Status: Former smoker Tobacco: How many years used: 50 second hand exposure: No alcohol intake: current substance use type: does not use Assessment & Plan Assessment & Plan narrative: Carlos Jansen is an 82yo M with PMH of orthostatic hypotension, remote ICH, previous alcohol use, alcoholic pancreatitis, HLD, fatty liver, GERD, and chronic thrombocytopenia 1. Sepsis with borderline septic shock secondary to acute cholangitis with hypotension, Elevated bilirubin, acute metabolic encephalopathy, thrombocytopenia - recommend transfer to higher level facility. With dilated CBD on US and lab abnormalities including elevated Tbili at 6, AST/ALT and fever to 103.6 this is consistent with acute cholangitis. Recommend transfer to center with GI consultation and ERCP capability. - continue zosyn for antibiotic therapy. - IV fluids. - UA negative. Respiratory panel negative. CXR is unremarkable. - SLUMS last admission was per provider notes. 2. Myocardial injury vs NSTEMI - elevated troponin likely represents myocardial demand in setting of sepsis. He does have non-specific ST changes and an apparent new afib though this is in the setting of sepsis - continue to trend troponins 3. 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 Last TTE 06/2023 with normal EF and LV systolic function (EF 60-65%) Code: DNR, okay with pressors. Surrogate is patient's spouse, Margarita. Discussed with ER provider, spouse for additional history and contributed to the above assessment and plan. I have reviewed patient's previous admission documents, imaging, current labs, imaging, and EKGs. I have spent 17 minutes involved in the advanced care planning of this patient, summarized in the H&P noted above including discussion of current illness, review of patient's underlying comorbidities, and range of possible outcomes. She is okay with pressor support if needed, procedures including ERCP or cholecystectomy. I have utilized all available immediate resources to obtain, update, or review the patient's current medications.
--- NOTE | 2023-11-04 17:10 | PC.NURSE ---
70 ML urine output in total since arriving in ED at 0800.
--- NOTE | 2023-11-04 18:24 | PC.NURSE ---
Alphonso ordered, pt BP currently 118/57 MAP 82, DI RN just arrived to place PICC line. Will reassess BP post PICC placement. Physician aware.
--- NOTE | 2023-11-04 18:42 | DI.RAD.S_ITS ---
PROCEDURE: XR CHEST FOR PICC 1V INDICATIONS: PICC placement COMPARISON: [facility], , XR CHEST 1V, 11/04/2023, 8:16. FINDINGS: PICC was placed by the intravenous therapy team from the right side. Fluoroscopic spot film demonstrates the tip of PICC projecting to the area of SVC. IMPRESSION: Tip of PICC projects to the area of SVC. Dictated by: Mihir William M.D. on 11/04/2023 at 19:36 Approved by: Mihir William M.D. on 11/04/2023 at 19:36
--- NOTE | 2023-11-04 18:51 | PC.NURSE ---
spoke to Prasanna at [facility] they are currently boarding but she took pt info and i faxed paperwork over. spoke to bebe at [facility] who said probably not tonight but took down info and i faxed paperwork. spoke to [facility] transfer center GI doc will call back spoke to Guerda Frank and they are at capacity for ICU level of care Left a message for [facility]. [facility] said full but took pt info [facility] said no they are tide up.
[2023-11-04] MEDS: LACTATED RINGERS 1,000 ML 200 ML IV (19:56)
[2023-11-05] VITALS (43 sets, daily range): BP systolic 97–136; BP diastolic 50–81; PULSE 54–72; RESP 12–23; TEMP 36–37.1; O2SAT 94–100; BMI 25.7
[2023-11-05] MEDS: LACTATED RINGERS 1,000 ML 200 ML IV ×2 (00:56→05:47)
--- NOTE | 2023-11-05 01:37 | PC.NURSE ---
Pt awake, asking to have a bowel movement. Pt placed on bed live. Pt is alert and talking to staff but unable to lift hips though he says he can. Pt is aware of his name and that he is at the hospital but is unsure of the year.
--- NOTE | 2023-11-05 02:52 | PC.NURSE ---
Pt offered hospital bed. Pt declined bed at this time states I am comfortable in this bed. Tech informed Pt that if he changes his mind we can provide a hospital bed.
[2023-11-05] MEDS: PIPERACILLIN/TAZO 4.5 GM in SODIUM CHLORIDE 0.9% 100 ML IV (02:58)
--- NOTE | 2023-11-05 03:38 | PC.NURSE ---
Received Call From [facility], clarified he had not received pressers and does not need an ICU bed at this time. potential chance to take patient.
[2023-11-05] MEDS: MIDODRINE HCL 5 MG TABLET 10 MG PO ×3 (05:48→17:41)
[2023-11-05 06:34] LABS: Add Manual Diff / Slide Review NO; Basophils Absolute Auto 0 /uL (0-100); Basophils Percent Auto 0.3 % (0-2); Eosinophils Absolute Auto 0 /uL (0-450); Eosinophils Percent Auto 0.1 % (2-4); Hematocrit 32.2 % (41-53); Hemoglobin 11.2 g/dL (13.5-17.5); Lymphocytes Absolute Auto 800 /uL (1100-4500); Lymphocytes Percent Auto 8.3 % (25-40); Mean Corpuscular HGB Conc 34.8 % (30-36); Mean Corpuscular Hemoglobin 32.1 PG (26-34); Mean Corpuscular Volume 92.3 fL (80-100); Monocytes Absolute Auto 700 /uL (0-900); Monocytes Percent Auto 7.3 % (3-14); Neutrophils Absolute Auto 8400 /uL (1500-7000); Platelet Count 91 X10^3/uL (150-400); Red Blood Cell Count 3.49 X10^6/uL (4.5-5.9); Red Cell Distribution Width 14.5 % (11.6-14.8); White Blood Cell Count 9.9 X10^3/uL (4.5-11.0)
[2023-11-05 06:42] LABS: Alanine Aminotransferase 40 IU/L (<50); Albumin 2.4 g/dL (3.5-5.0); Albumin Globulin Ratio 0.9 (1.0-2.8); Alkaline Phosphatase 113 U/L (38-126); Aspartate Aminotransferase 70 IU/L (17-59); BUN Creatinine Ratio 36.2 (6-22); Bilirubin Total 3.4 mg/dL (0.2-1.3); Blood Urea Nitrogen 25 mg/dL (9-20); Calcium 7.7 mg/dL (8.4-10.2); Carbon Dioxide 26 mmol/L (22-32); Chloride 109 mmol/L (98-107); Estimated Glomerular Filt Rate > 60 mL/min (>60); Globulin 2.8 g/dL (1.7-4.1); Glucose 107 mg/dL (80-110); HEMOLYSIS < 15 (0-50); Lipase 91 U/L (23-300); Potassium 3.3 mmol/L (3.4-5.1); Sodium 142 mmol/L (137-145); Total Protein 5.2 g/dL (6.3-8.2)
[2023-11-05 06:53] LABS: Troponin I 0.087 ng/mL (0.01-0.034)
[2023-11-05 06:58] LABS: Procalcitonin 1.24 ng/mL (<0.5)
--- NOTE | 2023-11-05 09:32 | P.HP_ITS ---
History of Present Illness History of Present Illness Date Patient Seen: 11/05/23 Time Patient Seen: 12:51 Chief complaint: Alt LOC Narrative: The patient is an 82-year-old male with a history of orthostatic hypotension, remote ICH, remote alcohol use, remote alcohol induced pancreatitis, HLD, fatty liver, GERD, and chronic thrombocytopenia. The patient was sent to the ER for nausea yesterday. At that point in time he was noted to have a elevated bilirubin. There was concern about a common bile duct stone. His initial abdomen ultrasound revealed a CBD of 8.8 mm. An abdominal MRCP was negative for evidence of common bile duct stone. The patient does have a prominent cystic duct and a dilated gallbladder with a small gallstone. He also had an elevated troponin, he denies any chest pain. The patient was not able to transfer due to bed availability and over the course of the night has improved clinically with better blood pressure, and a bilirubin that has decreased down to 3.0. Because the MRCP was negative for evidence of stone and likely need for ERCP, he was admitted here for further care. He is being treated for cholangitis and a possible passed gallstone. The patient does not speak much, but he does deny any abdominal pain, nausea, chest pain, or shortness a breath. His is in the room with him. She states he looks better today. He has been struggling with frequent falls and orthostatic hypotension and she believes that the pill, midodrine, is helping. He has been on Zosyn and his initial fever has resolved. He denies any back pain. No recent diarrhea or abdominal distention. He has recently been in [facility]. [facility] Medical History Hypotension Protein calorie malnutrition History of prostate cancer Seizure Thrombocytopenia Macrocytosis Alcoholic pancreatitis GERD (gastroesophageal reflux disease) Combined hyperlipidemia Falls frequently Intraparenchymal hemorrhage of brain Essential tremor Fatty liver Concussion Right fibular fracture Surgical History Status post radical cystoprostatectomy Status post colonoscopy S/P total hip arthroplasty Family History Father Prostate cancer Kidney problem Mother Old age Social History household members: spouse Smoking Status: Former smoker Tobacco: How many years used: 50 second hand exposure: No alcohol intake: current substance use type: does not use Meds Home Medications and Allergies Home Medications Medication Instructions Recorded Confirmed Type omeprazole 20 mg capsule,delayed 20 mg PO DAILY #90 caps 06/09/23 09/23/23 Rx release levetiracetam 500 mg tablet 500 mg PO BID #180 tabs 07/28/23 09/23/23 Rx fludrocortisone 0.1 mg tablet 0.2 mg (2 x 0.1 mg) PO DAILY #180 08/18/23 09/23/23 Rx tabs Transport Chair #1 ea 08/20/23 09/23/23 Rx ondansetron HCl 4 mg tablet 4 mg PO Q6HR PRN Nausea And 09/23/23 09/23/23 History Vomiting amoxicillin 875 mg-potassium 1 tab PO BID #14 tabs 09/27/23 Rx clavulanate 125 mg tablet aspirin 81 mg tablet,delayed 81 mg PO DAILY #30 tabs 09/27/23 Rx release atorvastatin 20 mg tablet 80 mg (4 x 20 mg) PO BEDTIME #30 09/27/23 Rx tabs midodrine 5 mg tablet 10 mg (2 x 5 mg) PO 0800,1200,1600 09/27/23 Rx #90 tabs oxycodone 5 mg tablet 5 mg PO Q4HR PRN Pain, Moderate 09/27/23 Rx (4-6) #20 tabs potassium chloride 20 mEq 40 meq (2 x 20 mEq) PO DAILYCC #14 09/27/23 Rx tablet,extended tabs release(part/cryst) (Klor-Con M) sodium chloride 1,000 mg soluble 1,000 mg PO TIDWM #30 tabs 09/27/23 Rx tablet Allergies Allergy/AdvReac Type Severity Reaction Status Date / Time No Known Allergies Allergy Verified 11/04/23 08:02 Review of Systems Review of Systems Narrative: All else reviewed and otherwise unremarkable with the exception of the history and physical. Exam Vital Signs (past 8 hours): - 11/05/23 01:40 11/05/23 01:40 11/05/23 01:50 Temperature 96.8 F L Pulse Rate 64 Respiratory Rate 17 Blood Pressure 119/62 116/58 L Pulse Oximetry 99 Oxygen Delivery Method Nasal Cannula Oxygen Flow Rate 3 02/21/24 01:50 11/05/23 02:00 11/05/23 02:00 Temperature 96.8 F L 96.8 F L Pulse Rate 60 61 Respiratory Rate 17 12 Blood Pressure 110/60 Pulse Oximetry 99 98 Oxygen Delivery Method Nasal Cannula Nasal Cannula Oxygen Flow Rate 3 3 11/05/23 02:10 11/05/23 02:10 11/05/23 02:20 Temperature 97.0 F L Pulse Rate 62 Respiratory Rate 14 Blood Pressure 121/58 L 107/58 L Pulse Oximetry 98 Oxygen Delivery Method Nasal Cannula Oxygen Flow Rate 3 11/05/23 02:20 11/05/23 02:30 11/05/23 02:30 Temperature 97.0 F L 97.0 F L Pulse Rate 72 59 L Respiratory Rate 23 17 Blood Pressure 107/56 L Pulse Oximetry 98 98 Oxygen Delivery Method Nasal Cannula Nasal Cannula Oxygen Flow Rate 3 3 11/05/23 02:40 11/05/23 02:40 11/05/23 02:50 Temperature 97.0 F L Pulse Rate 56 L Respiratory Rate 16 Blood Pressure 105/56 L 103/57 L Pulse Oximetry 99 Oxygen Delivery Method Nasal Cannula Oxygen Flow Rate 3 11/05/23 02:50 11/05/23 03:00 11/05/23 03:00 Temperature 97.0 F L 97.2 F L Pulse Rate 58 L 58 L Respiratory Rate 17 16 Blood Pressure 109/57 L Pulse Oximetry 98 99 Oxygen Delivery Method Nasal Cannula Nasal Cannula Oxygen Flow Rate 3 3 11/05/23 03:10 11/05/23 03:10 11/05/23 03:30 Temperature 97.2 F L 97.2 F L Pulse Rate 57 L 58 L Respiratory Rate 17 16 Blood Pressure 104/52 L Pulse Oximetry 99 98 Oxygen Delivery Method Nasal Cannula Nasal Cannula Oxygen Flow Rate 3 2 11/05/23 03:30 11/05/23 04:00 11/05/23 04:01 Temperature 97.2 F L 97.2 F L Pulse Rate 62 61 Respiratory Rate 16 17 Blood Pressure 98/55 L Pulse Oximetry 99 99 Oxygen Delivery Method Nasal Cannula Nasal Cannula Oxygen Flow Rate 2 2 11/05/23 04:01 11/05/23 04:30 11/05/23 04:31 Temperature 97.2 F L Pulse Rate 56 L Respiratory Rate 17 Blood Pressure 118/60 99/50 L Pulse Oximetry 98 Oxygen Delivery Method Oxygen Flow Rate 11/05/23 04:31 11/05/23 05:00 11/05/23 05:01 Temperature 97.2 F L 97.2 F L Pulse Rate 56 L 59 L Respiratory Rate 17 19 Blood Pressure 112/59 L Pulse Oximetry 98 98 Oxygen Delivery Method Oxygen Flow Rate 11/05/23 05:01 11/05/23 05:30 11/05/23 05:30 Temperature 97.2 F L 97.3 F L Pulse Rate 64 60 Respiratory Rate 18 17 Blood Pressure 118/56 L Pulse Oximetry 99 98 Oxygen Delivery Method Oxygen Flow Rate 11/05/23 06:00 11/05/23 06:00 11/05/23 06:30 Temperature 97.5 F L Pulse Rate 69 Respiratory Rate 22 Blood Pressure 115/81 123/57 L Pulse Oximetry 99 Oxygen Delivery Method Oxygen Flow Rate 11/05/23 06:30 11/05/23 07:00 11/05/23 07:00 Temperature 97.5 F L 97.7 F Pulse Rate 65 59 L Respiratory Rate 17 17 Blood Pressure 123/59 L Pulse Oximetry 99 98 Oxygen Delivery Method Oxygen Flow Rate Oxygen Delivery Method Nasal Cannula Oxygen Flow Rate 2 Narrative Exam Narrative: NAD, speaks very little. Flat affect. Normocephalic skull, EOMI, anicteric sclera, symmetric pupils. Neck is supple, midline trachea, no adenopathy. Lungs are clear with normal rate and effort. Heart is regular without murmur, or gallop. Abdomen is nondistended, and non tender. There is no tenderness in the right upper quadrant. Extremities are free of edema, good pedal and radial pulses. Skin is free of rash or lesions. Joints are not swollen or deformed. He can move arms and legs and has no facial droop. Objective Labs 11/05/23 06:01 11/05/23 06:01 Labs: Laboratory Results - last 24 hr 11/04/23 11/04/23 11/04/23 07:48 08:35 08:44 WBC RBC Hgb Hct MCV MCH MCHC RDW Plt Count Neut % (Auto) Lymph % (Auto) [place]roy[place] % (Auto) Eos % (Auto) Baso % (Auto) Neut # (Auto) Lymph # (Auto) [place]roy[place] # (Auto) Eos # (Auto) Baso # (Auto) Sodium Potassium Chloride Carbon Dioxide BUN Creatinine Estimated GFR BUN/Creatinine Ratio Glucose Lactate Calcium Total Bilirubin AST ALT Alkaline Phosphatase Troponin I Total Protein Albumin Globulin Albumin/Globulin Ratio Lipase 25 Procalcitonin Urine Color Yellow Urine Appearance Clear Urine pH 5.0 Ur Specific [place] 1.020 Urine Protein 2+ H Urine Glucose (UA) Trace H Urine Ketones Trace H Urine Occult Blood Negative Urine Nitrate Positive H Urine Bilirubin 3+ H Ur Bilirubin Confirm TNP Urine Urobilinogen >=8.0 Ur Leukocyte Esterase Negative Urine RBC None seen Urine WBC 1-5/hpf Ur Squamous Epith Cells 1-5 /hpf Ur Transition Epith Cell 0-1/hpf Urine Bacteria None seen Ur Culture Indicated? Cult not indicated Vol Urine Centrifuged 10ml (spun) Chlamy pneumoniae PCR Not detected Adenovirus (PCR) Not detected B.parapertussis DNA PCR Not detected Coronavirus OC43 (PCR) Not detected Coronavirus HKU1 (PCR) Not detected Coronavirus 229E (PCR) Not detected SARS-CoV-2 (PCR) Not detected Coronavirus NL63 (PCR) Not detected Human Metapneumovir PCR Not detected Influenza Type A (PCR) Not detected Influenza Type B (PCR) Not detected M. pneumoniae (PCR) Not detected Parainfluenza 1 (PCR) Not detected Parainfluenza 2 (PCR) Not detected Parainfluenza 3 (PCR) Not detected Parainfluenza 4 (PCR) Not detected RSV (PCR) Not detected Entero/Rhino (PCR) Not detected 11/04/23 11/04/23 11/05/23 09:57 14:30 06:01 WBC 9.9 RBC 3.49 L Hgb 11.2 L Hct 32.2 L MCV 92.3 MCH 32.1 MCHC 34.8 RDW 14.5 Plt Count 91 L Neut % (Auto) 84.0 H Lymph % (Auto) 8.3 L [place] % (Auto) 7.3 Eos % (Auto) 0.1 L Baso % (Auto) 0.3 Neut # (Auto) 8400 H Lymph # (Auto) 800 L [place] # (Auto) 700 Eos # (Auto) 0 Baso # (Auto) 0 Sodium 141 142 Potassium 2.9 L 3.3 L Chloride 105 109 H Carbon Dioxide 30 26 BUN 23 H 25 H Creatinine 0.84 0.69 Estimated GFR > 60 > 60 BUN/Creatinine Ratio 27.4 H 36.2 H Glucose 114 H 107 Lactate 1.4 Calcium 7.8 L 7.7 L Total Bilirubin 6.1 H 3.4 H AST 90 H 70 H ALT 49 40 Alkaline Phosphatase 135 H 113 Troponin I 0.121 H* 0.087 H Total Protein 5.7 L 5.2 L Albumin 2.7 L 2.4 L Globulin 3.0 2.8 Albumin/Globulin Ratio 0.9 L 0.9 L Lipase 91 D Procalcitonin 1.24 H Urine Color Urine Appearance Urine pH Ur Specific [place] Urine Protein Urine Glucose (UA) Urine Ketones Urine Occult Blood Urine Nitrate Urine Bilirubin Ur Bilirubin Confirm Urine Urobilinogen Ur Leukocyte Esterase Urine RBC Urine WBC Ur Squamous Epith Cells Ur Transition Epith Cell Urine Bacteria Ur Culture Indicated? Vol Urine Centrifuged Chlamy pneumoniae PCR Adenovirus (PCR) B.parapertussis DNA PCR Coronavirus OC43 (PCR) Coronavirus HKU1 (PCR) Coronavirus 229E (PCR) SARS-CoV-2 (PCR) Coronavirus NL63 (PCR) Human Metapneumovir PCR Influenza Type A (PCR) Influenza Type B (PCR) M. pneumoniae (PCR) Parainfluenza 1 (PCR) Parainfluenza 2 (PCR) Parainfluenza 3 (PCR) Parainfluenza 4 (PCR) RSV (PCR) Entero/Rhino (PCR) Assessment & Plan Assessment & Plan narrative: Carlos Jansen is an 82yo M with PMH of orthostatic hypotension, remote ICH, previous alcohol use, alcoholic pancreatitis, HLD, fatty liver, GERD, and chronic thrombocytopenia 1. Sepsis secondary to acute cholangitis with helevated bilirubin, and acute septic encephalopathy, present on admission and improving. - recommend transfer to higher level facility. With dilated CBD on US and lab abnormalities including elevated Tbili at 6, AST/ALT and fever to 103.6 this is consistent with acute cholangitis. Recommend transfer to center with GI consultation and ERCP capability. - continue zosyn for antibiotic therapy. - IV fluids. - UA negative. Respiratory panel negative. CXR is unremarkable. - negative MRCP, bilirubin improving. - SLUMS last admission was per provider notes. - bowel rest with nothing by mouth except ice chips and sips of water. 2. Chronic thrombocytopenia, present on admission and improving. 3. Demand ischemia, present on admission and improving. - elevated troponin likely represents myocardial demand in setting of sepsis. He does have non-specific ST changes and apparent new afib though this is in the setting of sepsis - continue to trend troponins 4. New diagnosis of atrial fibrillation with RVR, present on admission and improving. - continue treatment of above sepsis - telemetry monitoring - nursing home anticoagulation in setting of new afib with sepsis is unclear - recommend limited TTE. Last TTE 06/2023 with normal EF and LV systolic function (EF 60-65%) 5. Frequent falls and probable orthostatic hypotension, present on admission and improving on midodrine. 6. Remote intracranial hemorrhage, stable. PLAN: -continue NPO status, and IV fluids. Continue midodrine and monitor blood pressure. The patient will also have ongoing tracking of his LFTs and bilirubin. -physical therapy evaluation. -telemetry, monitor rate control. Code: DNR, okay with pressors. Surrogate is patient's spouse, Margarita. Discussed with ER provider, spouse for additional history and contributed to the above assessment and plan. I have reviewed patient's previous admission documents, imaging, current labs, imaging, and EKGs. Time Spent With Patient Time with patient: 30 to 49 minutes with 50% spent counseling/coordinating care Quality MIPS - Admit I confirm the patient?s Advance Care Plan is present, Code status is documented, Surrogate decision maker is in patient?s record [If Yes, STOP here]: Yes MIPS - Meds 'Current medications' to include all prescriptions, [id number] products, herbals, cannabis/cannabidiol products, and vitamin/mineral/dietary (nutritional) supplements. I have utilized all available resources to obtain, update, or review the patient?s current medications. [If Yes, STOP here]: Yes
[2023-11-05] MEDS: POTASSIUM CHLORIDE 20 MEQ TAB 40 MEQ PO ×2 (11:21→16:12)
[2023-11-05] MEDS: HEPARIN 5,000 UNIT/ML VIAL 5000 UNIT SUBCUT ×2 (11:21→20:18)
[2023-11-05] MEDS: PIPERACILLIN/TAZO 3.375 GM in SODIUM CHLORIDE 0.9% 100 ML IV ×2 (11:25→18:06)
[2023-11-05] MEDS: SODIUM CHLORIDE 0.9% 1,000 ML 75 ML IV (11:30)
[2023-11-05] MEDS: DEXTROSE 5%-0.45% NS 1,000 ML 100 ML IV ×2 (12:02→23:18)
--- NOTE | 2023-11-05 17:23 | PT-IP ANOTE ---
PT emily received and EMR reviewed. checked on pt but pt refused PT. stated that he is not going to do anything today. informed pt that PT will check back tomorrow.
[2023-11-06] VITALS: BP 92/62; PULSE 60; RESP 17; TEMP 36.2; O2SAT 96
[2023-11-06] MEDS: PIPERACILLIN/TAZO 3.375 GM in SODIUM CHLORIDE 0.9% 100 ML IV ×3 (03:10→18:14)
[2023-11-06 04:00] VITALS: BP 112/68; PULSE 60; RESP 17; TEMP 36.2; O2SAT 96
[2023-11-06] MEDS: MIDODRINE HCL 5 MG TABLET 10 MG PO ×3 (06:28→17:26)
--- NOTE | 2023-11-06 07:10 | P.PN_ITS ---
Subjective Subjective Interval history: He feels much better than yesterday. He denies any abdominal pain. No fevers overnight. He denies any nausea. [facility] transfer center did call and asked if we still need to transfer, they were advised that he appears to have passed a common bile duct stone in his improving with antibiotics for the treatment of possible cholangitis and obstruction of the common bile duct. His bilirubin is between 1 and 2 today. Exam Vital Signs (past 8 hours): - 11/06/23 00:00 11/06/23 04:00 Temperature 97.2 F L 97.1 F L Pulse Rate 60 60 Respiratory Rate 17 17 Blood Pressure 92/62 112/68 Pulse Oximetry 96 96 Oxygen Flow Rate 0 0 Oxygen Delivery Method Nasal Cannula Oxygen Flow Rate 0 Narrative Exam Narrative: NAD, fluent speech. Lungs are clear, with normal effort. Heart is regular, no murmur. Abdomen is soft, there is no focal tenderness including the left and right upper quadrant. Extremities are free of edema. Objective Labs 11/06/23 08:17 11/06/23 08:17 Labs: Bili 1.4, trop max 0.121, next 0.087. ALT 33, AST 47. PFSH Medical History Hypotension Protein calorie malnutrition History of prostate cancer Seizure Thrombocytopenia Macrocytosis Alcoholic pancreatitis GERD (gastroesophageal reflux disease) Combined hyperlipidemia Falls frequently Intraparenchymal hemorrhage of brain Essential tremor Fatty liver Concussion Right fibular fracture Surgical History Status post radical cystoprostatectomy Status post colonoscopy S/P total hip arthroplasty Family History Father Prostate cancer Kidney problem Mother Old age Social History household members: spouse Smoking Status: Former smoker Tobacco: How many years used: 50 second hand exposure: No alcohol intake: current substance use type: does not use Assessment & Plan Assessment & Plan narrative: 1. Sepsis secondary to acute cholangitis and acute septic encephalopathy, present on admission and improving. - continue zosyn for antibiotic therapy. Plan on a 3-5 day course of IV followed by oral therapy. - Advance diet today. - UA negative. Respiratory panel negative. CXR is unremarkable. - negative MRCP, bilirubin improving. - SLUMS last admission was per provider notes. - bowel rest with nothing by mouth except ice chips and sips of water. 2. Chronic thrombocytopenia, present on admission and improving. - monitor. 3. Demand ischemia, present on admission and improving. - elevated troponin likely represents myocardial demand in setting of sepsis. He does have non-specific ST changes and apparent new afib though this is in the setting of sepsis - obtain 2 D ECHO to assess wall motion. 4. New diagnosis of atrial fibrillation with RVR, present on admission and improving. - rate control goal under 100 bpm. 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 Last TTE 06/2023 with normal EF and LV systolic function (EF 60-65%) 5. Frequent falls and probable orthostatic hypotension, present on admission and improving on midodrine. 6. Remote intracranial hemorrhage, stable. PLAN: -Advance diet. Continue midodrine and monitor blood pressure. The patient will also have ongoing tracking of his LFTs and bilirubin. -physical therapy evaluation. -telemetry, monitor rate control. -cont antibiotics. -ECHO Code: DNR, okay with pressors. Surrogate is patient's spouse, Margarita. Time Spent With Patient Time with patient: 30 to 49 minutes with 50% spent counseling/coordinating care
[2023-11-06 08:00] VITALS: BP 129/65; PULSE 60; RESP 18; TEMP 36.4; O2SAT 96
[2023-11-06] MEDS: HEPARIN 5,000 UNIT/ML VIAL 5000 UNIT SUBCUT ×2 (08:09→20:09)
[2023-11-06 08:28] LABS: Add Manual Diff / Slide Review NO; Basophils Absolute Auto 0 /uL (0-100); Basophils Percent Auto 0.3 % (0-2); Eosinophils Absolute Auto 100 /uL (0-450); Eosinophils Percent Auto 2.3 % (2-4); Hematocrit 34.4 % (41-53); Hemoglobin 11.8 g/dL (13.5-17.5); Lymphocytes Absolute Auto 900 /uL (1100-4500); Lymphocytes Percent Auto 13.9 % (25-40); Mean Corpuscular HGB Conc 34.3 % (30-36); Mean Corpuscular Hemoglobin 31.9 PG (26-34); Monocytes Absolute Auto 600 /uL (0-900); Monocytes Percent Auto 9.5 % (3-14); Neutrophils Absolute Auto 4600 /uL (1500-7000); Platelet Count 100 X10^3/uL (150-400); Red Cell Distribution Width 14.2 % (11.6-14.8); White Blood Cell Count 6.2 X10^3/uL (4.5-11.0)
[2023-11-06 08:41] LABS: Alanine Aminotransferase 33 IU/L (<50); Albumin 2.6 g/dL (3.5-5.0); Albumin Globulin Ratio 0.9 (1.0-2.8); Alkaline Phosphatase 123 U/L (38-126); Aspartate Aminotransferase 57 IU/L (17-59); BUN Creatinine Ratio 25.8 (6-22); Bilirubin Total 1.4 mg/dL (0.2-1.3); Blood Urea Nitrogen 16 mg/dL (9-20); Calcium 8.3 mg/dL (8.4-10.2); Carbon Dioxide 27 mmol/L (22-32); Chloride 106 mmol/L (98-107); Estimated Glomerular Filt Rate > 60 mL/min (>60); Globulin 2.9 g/dL (1.7-4.1); Glucose 107 mg/dL (80-110); HEMOLYSIS < 15 (0-50); Potassium 2.8 mmol/L (3.4-5.1); Sodium 140 mmol/L (137-145); Total Protein 5.5 g/dL (6.3-8.2)
[2023-11-06] MEDS: DEXTROSE 5%-0.45% NS 1,000 ML 100 ML IV ×2 (09:08→19:33)
--- NOTE | 2023-11-06 10:33 | DI.ECHO.S_ITS ---
[facility] +---------+ : : [address] : [place] : : : : [id number] : : : : Phone: [phone]+ Echocardiogram Report + + :Name: OJ WONG Study Date: 11/06/2023 Height: 70 in : :[facility] ReadingLocation: Weight: 179 lb : : Gender: Male BSA: 2.0 m2 : :: 1940 Age: 83 yrs BP: 113/65 mmHg: :Reason For Study: EJECTION FRACTION : :Ordering Physician: GOLDIE, : :AMIRA Mccoy Performed By: Christy Hernandez : :Referring: AMIRA AMEZCUA : + + Interpretation Summary The study quality was technically difficult and limited. The patient had occasional PVCs during the exam. The ejection fraction is estimated to be 50-55%. The right ventricle is normal in size and function. Compared to the prior study dated 06/17/2023, the ejection fraction appears to have decreased somewhat. Procedure: The study quality was technically limited. The study quality was technically difficult. Comparison is made with the echocardiogram of 06/17/2023. A contrast injection of Definity was performed to improve assessment of LV function. The heart rate ranged between 58-65 bpm during the study. The patient had occasional PVCs during the exam. Left Ventricle: The left ventricle is normal in size and wall thickness. The left ventricular ejection fraction is grossly normal. The ejection fraction is estimated to be 50-55%. Right Ventricle: The right ventricle is normal in size and function. Mitral Valve: There is mild mitral annular calcification. Tricuspid Valve: The tricuspid valve is not well visualized, but is grossly normal. Great Vessels: The IVC is of normal diameter and collapses greater than 50% with a sniff. This suggests a low right atrial pressure of 3 mm Hg. Pericardium/ Pleura There is no pericardial effusion. MMode/2D Measurements & Calculations LVIDd: 5.2 cm IVC diam: 1.9 cm LVIDs: 3.8 cm FS: 26.4 % IVSd: 1.1 cm LVPWd: 0.82 cm LV james. diameter/BSA (cm/m^2): 2.6 LV sys. diameter/BSA (cm/m^2): 1.9 Reading Physician:02:12 PM
[2023-11-06] MEDS: POTASSIUM CHLORIDE 20 MEQ/15 ML UDC 40 MEQ PO ×3 (11:01→19:32)
--- NOTE | 2023-11-06 11:09 | PT.IIE ---
Current Diagnoses Sepsis, unspecified organism (11/05/23) Surgical History (Last Reviewed 11/05/23 @ 12:54 by Favian Penny MD) S/P total hip arthroplasty Status post colonoscopy Status post radical cystoprostatectomy Medical History (Last Reviewed 11/05/23 @ 12:54 by Favian Penny MD) Alcoholic pancreatitis Combined hyperlipidemia Concussion Essential tremor Falls frequently Fatty liver GERD (gastroesophageal reflux disease) History of prostate cancer Hypotension Intraparenchymal hemorrhage of brain Macrocytosis Protein calorie malnutrition Right fibular fracture Seizure Thrombocytopenia Physical Therapy Inpatient Evaluation/Re-Eval M1 PT/OT-IP Prior Functional Status Start: 11/06/23 08:10 Freq: NEEDED Status: Active Protocol: Document 11/06/23 10:15 MB (Rec: 11/06/23 11:09 MB [id number]) Medical Review Prior Functional Status Medical History Reviewed Yes Communication Unsure baseline diet, pt is hypoverbal and has confusion at baseline and currently Mobility and Gait Pt states that he was mostly in the bed at [facility] and was not getting up to the w/c much with nsg when PT asks, he states he was not getting therapy. Unsure pt reliability about history. Pt states he was only in [facility] for a day but he cannot state where else he was. He has had multiple hospital and SNF stays. Activities of Daily Living and IADL's Assistance from staff for all ADLs and mobility Social History Household Members spouse Living Arrangements Skilled Nurse Facility Number of Floors (Floors) One Floor Number of Stairs To Enter/Railing? Accessibility at SNF and no steps Home Environment Standard Height Toilet,Walk in Shower Home Equipment Front Wheel Walker,Manual Wheelchair,Shower Seat with Backrest,Hospital Bed,Grab Bars Near Toilet,Grab Bars In Shower Employment Status Retired M2 PT-IP Current Condition Start: 11/06/23 08:10 Freq: NEEDED Status: Active Protocol: Document 11/06/23 10:15 MB (Rec: 11/06/23 11:09 MB [id number]) Physical Therapy Current Condition Current Condition Evaluation Date 11/06/23 Treatment Diagnosis AMS, no urine output, history of syncope M3 PT-IP Subjective Start: 11/06/23 08:10 Freq: NEEDED Status: Active Protocol: Document 11/06/23 10:15 MB (Rec: 11/06/23 11:09 MB [id number]) Subjective Physical Therapy Visit Type Type Initial Evaluation Visit Start Time 10:15 Visit Stop Time 10:43 Number of TAFFY CANDY MAKER Visits 0 Physical Therapy Visit Comments Patient Comments Pt is hypoverbal and does not make spontaneous conversation. Initially refuses PT and OOB but is agreeable with PT encouraging and stating goal of PT to check BP and position better in bed. Therapy Pain Assessment Pain When Pain Assessed At Rest Pain Present Pain Present Denied Pain M4 PT-IP Mobility and Gait Start: 11/06/23 08:10 Freq: NEEDED Status: Active Protocol: Document 11/06/23 10:15 MB (Rec: 11/06/23 11:09 MB [id number]) PT-Bed Mobility Assessment Supine to Sit Supine to Sit Maximum Assistance,1 Person Assistance,Head of Bed Elevated,Bedrails Sit to Supine Sit to Supine Maximum Assistance,1 Person Assistance,Bedrails Scooting Scooting to Edge of Bed Maximum Assistance PT-Transfer Assessment Sit to and From Stand Sit to and from Stand Maximum Assistance,1 Person Assistance,Use of Upper Extremities Equipment Transfer Assistive Device Gait Belt,Front Wheeled Walker Orthotic/Prosthetic Devices or Brace: No Comments Mobility Comments Pt moves very slowly and has trouble following commands/ continuing functional mobility once started. PT provides continual verbal and tactile cues to help pt con't bed mobility and he tends to resist PT with his arms for side lying to sit, grabbing a hold of the left bed rail and unsure how to push up and instead and pulls himself back down. BP and HR in LUE: supine 122/67, 54; sitting 131 /80, 68; standing 114/64, 65. Pt is unable to report symptoms of light-headedness, etc. He tends to be more rigid in his limbs with getting up to sitting and has a hard time relaxing his arm. Gait Assessment Gait Gait Assistance Required: Moderate Assistance,1 Person Assist Distance (Feet) 2 Able to Maintain Weight Bearing Status Yes During Gait Assistive Devices Assistive Device Gait Belt,Front Wheeled Walker Orthotic/Prosthetic Devices or Brace: No Gait Deviations General Gait Pattern Antalgic,Decreased Stride Length,Decreased Feet Clearance,Flexed Trunk,Wide Based Gait Factors Limiting Gait Function Factors Limiting Gait Function Decreased Activity Tolerance, Difficulty Following Directions,Poor Balance,Poor Safety Awareness Comments Gait Comments Pt requires cues and assistance to move the walker to the left to perform left side stepping up to HOB with RW. PT con't to provide encouragement for stepping and goal. PT-Balance Assessment Sitting Balance and Reactions Static Sitting Balance Ability Fair Dynamic Sitting Balance Ability Poor Standing Balance and Reactions Static Standing Balance Ability Fair Dynamic Standing Balance Ability Poor Device Used RW M5 PT-IP Objective Assessments Start: 11/06/23 08:10 Freq: NEEDED Status: Active Protocol: Document 11/06/23 10:15 MB (Rec: 11/06/23 11:09 MB [id number]) Orientation Orientation/Cognition Level of Alertness Confusional State Orientation Name,Age,Birthday,Month,Year, Place Safety Awareness Decreased Safety Awareness Memory Description Short Term Impaired,Senior Living Impaired Gross Range of Motion Upper Extremity ROM Impairments Left index finger distal phalanx amputation Lower Extremity ROM Assessment Within Functional Limits Strength Lower Extremity Strength Assessment Within Functional Limits M6 PT-IP Treatment Start: 11/06/23 08:10 Freq: NEEDED Status: Active Protocol: Document 11/06/23 10:15 MB (Rec: 11/06/23 11:09 MB [id number]) Physical Therapy Treatment Education Education Provided Safety M7 PT-IP Assessment and Plan Start: 11/06/23 08:10 Freq: NEEDED Status: Active Protocol: Document 11/06/23 10:15 MB (Rec: 11/06/23 11:09 MB [id number]) PT Summary Assessment and Plan Potential Rehabilitation Potential Poor Status of Condition at Evaluation Unstable Summary Impairments Balance,Cognition,Bed Mobility ,Transfers,Gait,Activity Tolerance Progress Towards Goals Slow Progress due to Medical Issues,Slow Progress due to Activity Tolerance Assessment Summary Pt is an 83 y/o male with multiple hospital and SNF admissions over the past year with multiple issues including orthostasis, seizures, left index distal phalanx amputation, etc. He is adm to the hospital with AMS, no urinary output for three days and possible orthostasis. PT does check orthostatics on assessment and he has a positive 17 mmHg systolic drop and 14 mmHg diastolic drop sit to stand. Pt is hypoverbal and cannot report symptoms when asked. He has confusion and has trouble following commands and continuing with functional activity once started. Acute PT trial to see if pt can improve functional mobility. Poor cognition and orthostasis are barriers to PT . Goals Bed Mobility Goal Standby Assistance Transfer Goal Standby Assistance,Front Wheeled Walker Gait Goal Standby Assistance,Front Wheel Walker Gait Distance 75 Days to Meet Goals 10 Frequency of Treatment Frequency Of Treatment Once a Day Treatment Plan Physical Therapy Treatment Plan Bed Mobility Training,Transfer Training,Gait Training, Therapeutic Exercise,Balance Retraining,Discharge Planning, Neuromuscular Re-ed Precautions Other Precautions Fall risk, orthostasis Weight Bearing Status Weight Bearing Status Weight Bear as Tolerated Recommendations To Nursing Amount of Assist Needed 2 Person Assist Discharge Recommendations PT Discharge Recommendations SNF Rehab Transportation Needs at Discharge Wheelchair/Cabulance
[2023-11-06 12:00] VITALS: BP 113/65; PULSE 60; RESP 16; TEMP 35.9; O2SAT 94
--- NOTE | 2023-11-06 13:35 | CM.DANOTE ---
Initial DCP Assessment Visit Reviewed EMR and team rounds for pt's medical status. Was not able to meet with him in person today, will f/u with him in person tomorrow to continue assessment and coordinate his return to [facility] once he's medically cleared for d/c. Payor: [facility] PCP: Margarita Stoll Pt is a 83 year-old M who is currently residing at [facility] for prior rehab placement. Per pt's , pt has shown some decline in function over the last week, needing more help with ADL's, increased confusion. He was brought to the ED last evening with altered mental status, nausea, no urinary output for the last 3-days, and is orthostatic with standing. He showed elevated bilirubin on labs at that time, gallbladder was shown to be dilated and showed a small gallstone on CT imaging. Pt was also found to have acute septic encephalopathy. He was started on IV ABO's and fluids, and admitted to the floor for cholangitis and a possible already passed gallstone. DCP will continue to follow and assist with his d/c back to [facility]. 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 Yes: [place] Advance Directives on File No History Provided By Medical Record Expected Length of Stay 3 Has Patient been admitted in last 30 No days? Comment Last hospitalization was -09/27/23 Prior Living Arrangements Skilled Nurse Facility Household Members spouse Type of transporation used prior to Relies on Others admit Facility Name Admitted From: [facility] Willing to Return to Facility? Yes Independent with ADL's No: Modified independent Needs Assistance With Managing Medications,Home Chores / Shopping Community Services used prior to Physical Therapy admission: DME Already Rented / Owned Bath Bench,Hospital Bed, Wheelchair,Elevated Toilet Seat,FWW / Walker Comment Increased care needs over the last week per spouse Patient/Family Preference [facility] Facility Comment Likely back to [facility] if family agrees and [facility] can secure additional auth from [facility] Discharge Plan [facility] Facility Transportation Arrangement Likely wheelchair van Referrals Initiated [facility] Additional Comment [facility] Review Status In Process Please Provide Date Initial DC 11/06/23 Assessment Was Performed
--- NOTE | 2023-11-06 14:12 | PC.NURSE ---
Day shift: Pt with mild and intermittent cough after eating lunch today. Cough is non-productive. [place] for approx 30 minutes. Pt and Pt's Spouse stated that he has this cough after eating and is normal. This cough has been going on for years they said.
[2023-11-06 16:00] VITALS: BP 139/71; PULSE 68; RESP 18; TEMP 36.5; O2SAT 97
[2023-11-06 17:35] LABS: BUN Creatinine Ratio 20.6 (6-22); Blood Urea Nitrogen 14 mg/dL (9-20); Calcium 8.2 mg/dL (8.4-10.2); Carbon Dioxide 28 mmol/L (22-32); Chloride 106 mmol/L (98-107); Estimated Glomerular Filt Rate > 60 mL/min (>60); Glucose 102 mg/dL (80-110); HEMOLYSIS < 15 (0-50); Magnesium 1.3 mg/dL (1.6-2.3); Potassium 3.3 mmol/L (3.4-5.1); Sodium 139 mmol/L (137-145)
[2023-11-06] MEDS: MAGNESIUM CHLORIDE 64 MG TABLET 128 MG PO (19:33)
[2023-11-06 19:55] VITALS: BP 121/68; PULSE 65; RESP 17; TEMP 36.1; O2SAT 97
[2023-11-07] VITALS: BP 110/70; PULSE 70; RESP 16; TEMP 36.4; O2SAT 96
[2023-11-07] MEDS: POTASSIUM CHLORIDE 20 MEQ/15 ML UDC 40 MEQ PO (02:03)
[2023-11-07] MEDS: PIPERACILLIN/TAZO 3.375 GM in SODIUM CHLORIDE 0.9% 100 ML IV ×2 (02:05→11:26)
[2023-11-07 04:00] VITALS: BP 154/84; PULSE 72; RESP 17; TEMP 35.9; O2SAT 97
[2023-11-07] MEDS: DEXTROSE 5%-0.45% NS 1,000 ML 100 ML IV (05:18)
[2023-11-07] MEDS: MIDODRINE HCL 5 MG TABLET 10 MG PO ×2 (05:18→12:34)
[2023-11-07 05:42] LABS: Add Manual Diff / Slide Review NO; Basophils Absolute Auto 0 /uL (0-100); Basophils Percent Auto 0.7 % (0-2); Eosinophils Absolute Auto 200 /uL (0-450); Hematocrit 34.3 % (41-53); Hemoglobin 11.7 g/dL (13.5-17.5); Lymphocytes Absolute Auto 900 /uL (1100-4500); Lymphocytes Percent Auto 18.5 % (25-40); Mean Corpuscular HGB Conc 34.2 % (30-36); Mean Corpuscular Hemoglobin 31.6 PG (26-34); Mean Corpuscular Volume 92.4 fL (80-100); Monocytes Absolute Auto 600 /uL (0-900); Monocytes Percent Auto 11.2 % (3-14); Neutrophils Absolute Auto 3300 /uL (1500-7000); Neutrophils Percent Auto 65.6 % (50-75); Platelet Count 97 X10^3/uL (150-400); Red Blood Cell Count 3.71 X10^6/uL (4.5-5.9); Red Cell Distribution Width 14.1 % (11.6-14.8)
[2023-11-07 06:02] LABS: Alanine Aminotransferase 33 IU/L (<50); Albumin 2.6 g/dL (3.5-5.0); Albumin Globulin Ratio 0.9 (1.0-2.8); Alkaline Phosphatase 132 U/L (38-126); Aspartate Aminotransferase 57 IU/L (17-59); BUN Creatinine Ratio 16.4 (6-22); Bilirubin Total 1.3 mg/dL (0.2-1.3); Blood Urea Nitrogen 10 mg/dL (9-20); Calcium 8.2 mg/dL (8.4-10.2); Carbon Dioxide 26 mmol/L (22-32); Chloride 107 mmol/L (98-107); Estimated Glomerular Filt Rate > 60 mL/min (>60); Globulin 2.9 g/dL (1.7-4.1); Glucose 106 mg/dL (80-110); HEMOLYSIS < 15 (0-50); Potassium 3.7 mmol/L (3.4-5.1); Sodium 137 mmol/L (137-145); Total Protein 5.5 g/dL (6.3-8.2)
[2023-11-07 08:00] VITALS: BP 151/90; PULSE 62; RESP 16; TEMP 36.2; O2SAT 94
--- NOTE | 2023-11-07 10:11 | PT.IPTN ---
Current Diagnoses Sepsis, unspecified organism (11/05/23) Physical Therapy Treatment Note M2 PT-IP Current Condition Start: 11/06/23 08:10 Freq: NEEDED Status: Active Protocol: Document 11/06/23 10:15 MB (Rec: 11/06/23 11:09 MB [id number]) Physical Therapy Current Condition Current Condition Evaluation Date 11/06/23 Treatment Diagnosis AMS, no urine output, history of syncope M3 PT-IP Subjective Start: 11/06/23 08:10 Freq: NEEDED Status: Active Protocol: Document 11/07/23 10:46 TS (Rec: 11/07/23 10:56 TS [id number]) Subjective Physical Therapy Visit Type Type Treatment Note Visit Start Time 10:11 Visit Stop Time 10:44 Number of RN INTERNSHIP Visits 1 Physical Therapy Visit Comments Patient Comments Pt found resting in bed, is agreeable to PT. M4 PT-IP Mobility and Gait Start: 11/06/23 08:10 Freq: NEEDED Status: Active Protocol: Document 11/07/23 10:46 TS (Rec: 11/07/23 10:56 TS [id number]) PT-Bed Mobility Assessment Supine to Sit Supine to Sit Maximum Assistance,1 Person Assistance,Head of Bed Elevated,Bedrails Sit to Supine Sit to Supine Maximum Assistance,1 Person Assistance,Bedrails Scooting Scooting to Edge of Bed Maximum Assistance PT-Transfer Assessment Sit to and From Stand Sit to and from Stand Moderate Assistance,Maximum Assistance,1 Person Assistance ,Use of Upper Extremities Equipment Transfer Assistive Device Gait Belt,Front Wheeled Walker Orthotic/Prosthetic Devices or Brace: No Comments Mobility Comments Supine to sit MaxA for uprighting trunk with CLINICAL INFORMATICIST. He scooted to EOB MaxA with use of transfer pad. STS from bed ModA with use of FWW and cues fo rpushing from bed. Pt ambulated in room ~15'Janina with use of FWW, pt had small BM, pt sat back EOB. STS from bed for pericare MaxA with use of FWW. Pt sat back EOB due to fatigue. STS again from bed MaxA with FWW, nursing in room to assist. He sidestepped to HOB x6 Janina for FWW management, pt has some retroleaning, requires cues for upright posture. Sit to supine into bed MaxA x2. pt was left in bed, all needs met . Gait Assessment Gait Gait Assistance Required: Moderate Assistance,1 Person Assist Distance (Feet) 15 Able to Maintain Weight Bearing Status Yes During Gait Assistive Devices Assistive Device Gait Belt,Front Wheeled Walker Orthotic/Prosthetic Devices or Brace: No Gait Deviations General Gait Pattern Antalgic,Decreased Stride Length,Decreased Feet Clearance,Flexed Trunk,Wide Based Gait Factors Limiting Gait Function Factors Limiting Gait Function Decreased Activity Tolerance, Difficulty Following Directions,Poor Balance,Poor Safety Awareness Comments Gait Comments See mobility comments PT-Balance Assessment Sitting Balance and Reactions Static Sitting Balance Ability Fair Dynamic Sitting Balance Ability Poor Standing Balance and Reactions Static Standing Balance Ability Fair Dynamic Standing Balance Ability Poor Device Used RW M5 PT-IP Objective Assessments Start: 11/06/23 08:10 Freq: NEEDED Status: Active Protocol: Document 11/06/23 10:15 MB (Rec: 11/06/23 11:09 MB [id number]) Orientation Orientation/Cognition Level of Alertness Confusional State Orientation Name,Age,Birthday,Month,Year, Place Safety Awareness Decreased Safety Awareness Memory Description Short Term Impaired,Weave Room Supervisor Impaired Gross Range of Motion Upper Extremity ROM Impairments Left index finger distal phalanx amputation Lower Extremity ROM Assessment Within Functional Limits Strength Lower Extremity Strength Assessment Within Functional Limits M6 PT-IP Treatment Start: 11/06/23 08:10 Freq: NEEDED Status: Active Protocol: Document 11/07/23 10:46 TS (Rec: 11/07/23 10:56 [id number]) Physical Therapy Treatment Education Education Provided Safety M7 PT-IP Assessment and Plan Start: 11/06/23 08:10 Freq: NEEDED Status: Active Protocol: Document 11/07/23 10:46 TS (Rec: 11/07/23 10:56 [id number]) PT Summary Assessment and Plan Potential Rehabilitation Potential Poor Summary Impairments Balance,Cognition,Bed Mobility ,Transfers,Gait,Activity Tolerance Progress Towards Goals Slow Progress due to Medical Issues,Slow Progress due to Activity Tolerance Assessment Summary Ac made some progress with his mobility but remains limited by poor strenght and activity tolerance. He is MaxA for bed mobility and requires max cues. He performed STS x3 , x1ModA and x2MaxA with FWW. He progressed his gait to ~15' Janina, has poor balance and some retroleaning. He does well following single step instructions. He denied any dizziness. PT continues to recommend SNF rehab at this time. Goals Bed Mobility Goal Standby Assistance Transfer Goal Standby Assistance,Front Wheeled Walker Gait Goal Standby Assistance,Front Wheel Walker Gait Distance 75 Days to Meet Goals 10 Frequency of Treatment Frequency Of Treatment Once a Day Treatment Plan Physical Therapy Treatment Plan Bed Mobility Training,Transfer Training,Gait Training, Therapeutic Exercise,Balance Retraining,Discharge Planning, Neuromuscular Re-ed Precautions Other Precautions Fall risk, orthostasis Weight Bearing Status Weight Bearing Status Weight Bear as Tolerated Recommendations To Nursing Amount of Assist Needed 2 Person Assist Discharge Recommendations PT Discharge Recommendations SNF Rehab Transportation Needs at Discharge Wheelchair/Cabulance
[2023-11-07] MEDS: HEPARIN 5,000 UNIT/ML VIAL 5000 UNIT SUBCUT (11:23)
--- NOTE | 2023-11-07 12:52 | P.PN_ITS ---
Subjective Subjective Interval history: He feels better today. He does feel generally weak. He notes that he does not do a lot of physical activity at his facility but generally uses a wheelchair and sometimes walks a bit. He denies any abdominal pain or nausea today. Exam Vital Signs (past 8 hours): - 11/07/23 08:00 Temperature 97.1 F L Pulse Rate 62 Respiratory Rate 16 Blood Pressure 151/90 H Pulse Oximetry 94 Oxygen Delivery Method Nasal Cannula Oxygen Flow Rate 0 Narrative Exam Narrative: NAD, fluent speech, flat affect. Lungs are clear, normal rate and effort. Heart is regular, 3/6 systolic murmur. Abdomen is non tender and non distended. No leg edema. Objective Labs 11/07/23 05:30 11/07/23 05:30 Labs: Laboratory Results - last 24 hr 11/06/23 11/07/23 17:05 05:30 WBC 5.0 RBC 3.71 L Hgb 11.7 L Hct 34.3 L MCV 92.4 MCH 31.6 MCHC 34.2 RDW 14.1 Plt Count 97 L Neut % (Auto) 65.6 Lymph % (Auto) 18.5 L [place] % (Auto) 11.2 Eos % (Auto) 4.0 Baso % (Auto) 0.7 Neut # (Auto) 3300 Lymph # (Auto) 900 L [place] # (Auto) 600 Eos # (Auto) 200 Baso # (Auto) 0 Sodium 139 137 Potassium 3.3 L 3.7 Chloride 106 107 Carbon Dioxide 28 26 BUN 14 10 Creatinine 0.68 0.61 L Estimated GFR > 60 > 60 BUN/Creatinine Ratio 20.6 16.4 Glucose 102 106 Calcium 8.2 L 8.2 L Magnesium 1.3 L Total Bilirubin 1.3 AST 57 ALT 33 Alkaline Phosphatase 132 H Total Protein 5.5 L Albumin 2.6 L Globulin 2.9 Albumin/Globulin Ratio 0.9 L [facility] Medical History Hypotension Protein calorie malnutrition History of prostate cancer Seizure Thrombocytopenia Macrocytosis Alcoholic pancreatitis GERD (gastroesophageal reflux disease) Combined hyperlipidemia Falls frequently Intraparenchymal hemorrhage of brain Essential tremor Fatty liver Concussion Right fibular fracture Surgical History Status post radical cystoprostatectomy Status post colonoscopy S/P total hip arthroplasty Family History Father Prostate cancer Kidney problem Mother Old age Social History household members: spouse Smoking Status: Former smoker Tobacco: How many years used: 50 second hand exposure: No alcohol intake: current substance use type: does not use Assessment & Plan Assessment & Plan narrative: 1. Sepsis secondary to acute cholangitis and acute septic encephalopathy, present on admission and improving. - continue zosyn for antibiotic therapy. LFTs are improved. We will convert oral therapy when he can go back to residential facility. He is medically stable for discharge today if they are able to take him. 2. Cholangitis, present on admission and improving. 3. Probable passed gallstone, present on admission and resolved. 4. Septic encephalopathy, present on admission and resolved. 5. Chronic thrombocytopenia, present on admission and improving. - monitor. 6. Demand ischemia, present on admission and improving. - elevated troponin likely represents myocardial demand in setting of sepsis. He does have non-specific ST changes and apparent new afib though this is in the setting of sepsis - obtain 2 D ECHO to assess wall motion. ECHO: The study quality was technically difficult and limited. The patient had occasional PVCs during the exam. The ejection fraction is estimated to be 50-55%. The right ventricle is normal in size and function. 7. New diagnosis of atrial fibrillation with RVR, present on admission and improving. - rate control goal under 100 bpm. - telemetry monitoring - terminal computer operator anticoagulation in setting of new afib with sepsis is unclear, also with a H/O ICH. 8. Frequent falls and probable orthostatic hypotension, present on admission and improving on midodrine. 9. Remote intracranial hemorrhage, stable. DISPO: possible discharge back to SNF ([facility]). Time Spent With Patient Time with patient: 30 to 49 minutes with 50% spent counseling/coordinating care
--- NOTE | 2023-11-07 13:11 | PM.DS.1 ---
History of Present Illness History of Present Illness Chief complaint: Alt LOC Narrative: The patient is an 82-year-old male with a history of orthostatic hypotension, remote ICH, remote alcohol use, remote alcohol induced pancreatitis, HLD, fatty liver, GERD, and chronic thrombocytopenia. The patient was sent to the ER for nausea yesterday. At that point in time he was noted to have a elevated bilirubin. There was concern about a common bile duct stone. His initial abdomen ultrasound revealed a CBD of 8.8 mm. An abdominal MRCP was negative for evidence of common bile duct stone. The patient does have a prominent cystic duct and a dilated gallbladder with a small gallstone. He also had an elevated troponin, he denies any chest pain. The patient was not able to transfer due to bed availability and over the course of the night has improved clinically with better blood pressure, and a bilirubin that has decreased down to 3.0. Because the MRCP was negative for evidence of stone and likely need for ERCP, he was admitted here for further care. He is being treated for cholangitis and a possible passed gallstone. The patient does not speak much, but he does deny any abdominal pain, nausea, chest pain, or shortness a breath. His is in the room with him. She states he looks better today. He has been struggling with frequent falls and orthostatic hypotension and she believes that the pill, midodrine, is helping. He has been on Zosyn and his initial fever has resolved. He denies any back pain. No recent diarrhea or abdominal distention. He has recently been in [facility] nursing [facility]. Discharge Providers Provider Date of admission: 11/05/23 08:25 Discharge Date: 11/07/23 Primary care physician: MELVINA Salguero Consults: 11/05/23 11:49 Consult to Physical Therapy Evaluate & Treat Comment: Physician Instructions: Evaluate and Treat Discharge provider: Favian Penny MD Summary Hospital Course Discharge Diagnosis: 1. Sepsis secondary to acute cholangitis and acute septic encephalopathy, present on admission and improving. - continue zosyn for antibiotic therapy. LFTs are improved. We will convert oral therapy when he can go back to longterm facility. He is medically stable for discharge today if they are able to take him. 2. Cholangitis, present on admission and improving. Bili 1.3 on the day of discharge. 3. Probable passed gallstone, present on admission and resolved. 4. Septic encephalopathy, present on admission and resolved. 5. Chronic thrombocytopenia, present on admission and improving. - monitor. 6. Demand ischemia, present on admission and improving. - elevated troponin likely represents myocardial demand in setting of sepsis. He does have non-specific ST changes and apparent new afib though this is in the setting of sepsis - obtain 2 D ECHO to assess wall motion. NO WALL MOTION ABNORMALITIES. ECHO: The study quality was technically difficult and limited. The patient had occasional PVCs during the exam. The ejection fraction is estimated to be 50-55%. The right ventricle is normal in size and function. 7. New diagnosis of atrial fibrillation with RVR, present on admission and RATE CONTROLLED. - rate control goal under 100 bpm. - alf anticoagulation in setting of new afib with sepsis is unclear, also with a H/O ICH. 8. Frequent falls and probable orthostatic hypotension, present on admission and improving on midodrine. 9. Remote intracranial hemorrhage, stable. Hospital Course: The patient was admitted with sepsis and acute cholangitis. Initially had evidence of an obstructive hepatic process. The patient was given antibiotics for cholangitis and attempts to transfer for ERCP were made but unsuccessful. An MRCP was obtained which was negative for obstruction of the bile duct and then he had clinical improvement with resolution of his elevated bilirubin and transaminases. It was felt that he may have passed a stone. He resolved fevers and encephalopathy resolved. The patient was Zosyn while in the hospital be placed on Augmentin for an additional 5 days at the time of discharge. He was noted to be in atrial fibrillation with rapid response initially and then had better rate control. Anticoagulation is felt to not be a great idea with his history of intracranial hemorrhage and this atrial fibrillation occurring with sepsis. He continued his usual medications for his chronic orthostatic hypotension. He did have a mild elevation of troponins consistent with demand ischemia but echo revealed no wall motion abnormalities. He also does have a chronic thrombocytopenia which appeared to be relatively stable. He appeared to be his functional baseline at the time of discharge back to [facility]. There he will continue rehabilitative efforts and oral antibiotics. He would benefit from follow up laboratories in a week or so. Dr Contreras we will be assuming care of the patient at longterm facility. Status at Discharge Cognitive/behavioral status at discharge: at baseline, oriented Functional status at discharge: uses cane/walker Overall status at discharge: patient is progressing back to baseline Time Spent with Patient Time spent: Greater than 30 minutes Exam Vital Signs (past 8 hours): - 11/07/23 08:00 Temperature 97.1 F L Pulse Rate 62 Respiratory Rate 16 Blood Pressure 151/90 H Pulse Oximetry 94 Oxygen Delivery Method Nasal Cannula Oxygen Flow Rate 0 Narrative Exam Narrative: NAD, fluent speech, flat affect. Lungs are clear, normal rate and effort. Heart is regular, 3/6 systolic murmur. Abdomen is non tender and non distended. No leg edema. Objective Imaging Multiple studies:: Radiologist's impression: Chest x-ray reveals PICC. MRCP reveals normal hepatic and extrahepatic ducts with a prominent cystic duct and a dilated gallbladder. There is no pericholecystic fluid and there was no common bile duct stone. Abdomen ultrasound revealed a common bile duct dilated at 8.8 mm with no stones visualized. Brain CT was negative for acute findings at admission. Admission chest x-ray was unremarkable. Labs 11/07/23 05:30 11/07/23 05:30 Labs: Laboratory Results - last 24 hr 11/06/23 11/07/23 17:05 05:30 WBC 5.0 RBC 3.71 L Hgb 11.7 L Hct 34.3 L MCV 92.4 MCH 31.6 MCHC 34.2 RDW 14.1 Plt Count 97 L Neut % (Auto) 65.6 Lymph % (Auto) 18.5 L [place] % (Auto) 11.2 Eos % (Auto) 4.0 Baso % (Auto) 0.7 Neut # (Auto) 3300 Lymph # (Auto) 900 L [place] # (Auto) 600 Eos # (Auto) 200 Baso # (Auto) 0 Sodium 139 137 Potassium 3.3 L 3.7 Chloride 106 107 Carbon Dioxide 28 26 BUN 14 10 Creatinine 0.68 0.61 L Estimated GFR > 60 > 60 BUN/Creatinine Ratio 20.6 16.4 Glucose 102 106 Calcium 8.2 L 8.2 L Magnesium 1.3 L Total Bilirubin 1.3 AST 57 ALT 33 Alkaline Phosphatase 132 H Total Protein 5.5 L Albumin 2.6 L Globulin 2.9 Albumin/Globulin Ratio 0.9 L [facility] Medical History Hypotension Protein calorie malnutrition History of prostate cancer Seizure Thrombocytopenia Macrocytosis Alcoholic pancreatitis GERD (gastroesophageal reflux disease) Combined hyperlipidemia Falls frequently Intraparenchymal hemorrhage of brain Essential tremor Fatty liver Concussion Right fibular fracture Surgical History Status post radical cystoprostatectomy Status post colonoscopy S/P total hip arthroplasty Family History Father Prostate cancer Kidney problem Mother Old age Social History household members: spouse Smoking Status: Former smoker Tobacco: How many years used: 50 second hand exposure: No alcohol intake: current substance use type: does not use Discharge Assessment & Plan Assessment and Plan Assessment: 1. Sepsis secondary to acute cholangitis and acute septic encephalopathy, present on admission and improving. 2. Cholangitis, present on admission and improving. Bili 1.3 on the day of discharge. 3. Probable passed gallstone, present on admission and resolved. 4. Septic encephalopathy, present on admission and resolved. 5. Chronic thrombocytopenia, present on admission and improving. - monitor. 6. Demand ischemia, present on admission and improving. ECHO: The study quality was technically difficult and limited. The patient had occasional PVCs during the exam. The ejection fraction is estimated to be 50-55%. The right ventricle is normal in size and function. 7. New diagnosis of atrial fibrillation with RVR, present on admission and RATE CONTROLLED. - alf anticoagulation in setting of new afib with sepsis is unclear, also with a H/O ICH. 8. Frequent falls and probable orthostatic hypotension, present on admission and improving on midodrine. 9. Remote intracranial hemorrhage, stable. Plan of Treatment: Discharge back to longterm facility. The patient did have some abnormal gallbladder findings but clinically has improved his symptoms. We will use oral antibiotics for an additional 5 days. Recommend follow up CMP and CBC in about 5 days. In addition the patient was in atrial fibrillation here, would monitor this for rate control at longterm facility but likely advise against anticoagulation with his history of intracranial hemorrhage. Discharge Plan Discharge Plan Patient Disposition: SNF Transfer to: [facility] and [facility] Discharge orders & Medications Prescriptions: New amoxicillin-pot clavulanate [Augmentin] 500-125 mg tablet 1 tab PO Q12H Qty: 20 0RF Continued omeprazole 20 mg capsule,delayed release(DR/EC) 20 mg PO DAILY Qty: 90 3RF levetiracetam 500 mg tablet 500 mg PO BID Qty: 180 3RF fludrocortisone 0.1 mg tablet 0.2 mg PO DAILY Qty: 180 3RF (DME) Transport Chair See Rx Instructions .Route .MEDSUPPLY Qty: 1 0RF Rx Instructions: Transport Chair. Please fit patient with a chair that will fit his halls and doorways at home. ondansetron HCl 4 mg tablet 4 mg PO Q6HR PRN (Reason: Nausea And Vomiting) midodrine 5 mg Tablet 10 mg PO 0800,1200,1600 Qty: 90 1RF aspirin 81 mg Tablet,Delayed Release (Dr/Ec) 81 mg PO DAILY Qty: 30 1RF potassium chloride [Klor-Con M20] 20 mEq Tablet,Er Particles/Crystals 40 meq PO DAILYCC Qty: 14 0RF atorvastatin 20 mg Tablet 80 mg PO BEDTIME Qty: 30 1RF oxycodone 5 mg Tablet 5 mg PO Q4HR PRN (Reason: Pain, Moderate (4-6)) Qty: 20 0RF sodium chloride 1,000 mg Tablet,Soluble 1,000 mg PO TIDWM Qty: 30 0RF Medication counseling provided by Pharmacist: No Follow up/Referrals: Margarita Stoll ARNP [Primary Care Provider] - Discharge Health Status Multidrug resistant organism: No MDRO Diet/Activity/Treatments Diet: Regular Liquid consistency: Normal/Thin Skin/Wound/Dressing Care Report to your healthcare provider any signs of infection, such as:: chills, fever, night sweats and increased pain Visit Report/Discharge Packet Stand Alone Forms: Patient Portal/API Discharge Data Primary Care Provider: Margarita Stoll
--- NOTE | 2023-11-07 14:16 | CM.DPC ---
DCP Cont. Reviewed EMR and team rounds for medical status updates. Pt is now medically cleared for d[facility]c today[facility] from [facility] for his re-admission. Transport is arranged for 3:30pm today. Called and updated her of d/c plan, updated nursing team. No further CM needs identified at this time for d/c.
--- NOTE | 2023-11-07 16:26 | PC.NURSE ---
Patient is A&OX3 this a.m. VSS, SR-SB on telemetry. He denies pain today. HE has a good appetite and denies n/v. He is cooperative with PT and able to stand with x2 assist. He is medically cleared for discharge back to [facility] today and facilty transporter arrived at 310. Pt is escorted via w/ch with all of his belongings and discharge packet at 1545. Packet given to facility designee. Report called to Hilary.
== END 2023-11-07 15:45 | DRG 871 ==
LOC: ED 11-05 08:17 → AC 11-05 08:25
PROVIDERS: Emergency Medicine; Admitting Provider Hospitalist; Emergency Provider Emergency Medicine; PCP Nurse Practitioner; Referring Provider Emergency Medicine; Visit Provider Hospitalist
DX: A41.9 Sepsis, unspecified organism (principal); G93.41 Metabolic encephalopathy; R65.21 Severe sepsis with septic shock; K83.09 Other cholangitis; I24.89 Other forms of acute ischemic heart disease; N39.0 Urinary tract infection, site not specified; D69.6 Thrombocytopenia, unspecified; I48.91 Unspecified atrial fibrillation; I95.1 Orthostatic hypotension; R29.6 Repeated falls; K80.20 Calculus of gallbladder without cholecystitis without obstruction; K21.9 Gastro-esophageal reflux disease without esophagitis; Z66 Do not resuscitate; Z86.79 Personal history of other diseases of the circulatory system; Z87.891 Personal history of nicotine dependence
CPT/HCPCS: 36415; 36569; 70450; 71045; 74183; 76700; 80048; 80053; 81001; 82550; 83605; 83690; 83735; 84145; 84443; 84484; 85025; 85610; 85730; 87040; 87086; 87633; 93005; 93307; 96365; 96366; 96367; 97161; 97530; 99285; A9579; J1644; J1720; J2543; Q9957

== ENCOUNTER 2023-11-11 16:26 | Emergency (ER) | payer MEDICARE, SELFPAY ==
[2023-11-05 17:40] VITALS: BMI 25.7
[2023-11-11] VITALS (17 sets, daily range): BP systolic 105–172; BP diastolic 53–74; PULSE 68–89; RESP 20–29; TEMP 36.9–38.9; O2SAT 93–95
--- NOTE | 2023-11-11 16:41 | DI.RAD.S_ITS ---
PROCEDURE: XR CHEST 1V INDICATIONS: suspected sepsis TECHNIQUE: One view of the chest was acquired. COMPARISON: [facility], CR, XR CHEST FOR PICC 1V, 11/04/2023, 18:44. FINDINGS: Surgical changes and devices: None. Lungs and pleura: Lungs are clear. No pleural effusions or pneumothorax. Mediastinum: Mediastinal contours appear normal. Heart size is normal. Bones and chest wall: No suspicious bony lesions. Overlying soft tissues appear unremarkable. IMPRESSION: No acute cardiopulmonary abnormalities or focal airspace disease. Dictated by: Jonel Arana M.D. on 11/11/2023 at 18:03 Approved by: Jonel Arana M.D. on 11/11/2023 at 18:03
[2023-11-11 16:51] LABS: Add Manual Diff / Slide Review NO; Basophils Absolute Auto 0 /uL (0-100); Basophils Percent Auto 0.6 % (0-2); Eosinophils Absolute Auto 200 /uL (0-450); Eosinophils Percent Auto 2.6 % (2-4); Hematocrit 39.7 % (41-53); Hemoglobin 13.4 g/dL (13.5-17.5); INR 1.4 (0.9-1.3); Lymphocytes Absolute Auto 600 /uL (1100-4500); Lymphocytes Percent Auto 9.9 % (25-40); Mean Corpuscular HGB Conc 33.8 % (30-36); Mean Corpuscular Hemoglobin 30.9 PG (26-34); Mean Corpuscular Volume 91.4 fL (80-100); Monocytes Absolute Auto 600 /uL (0-900); Monocytes Percent Auto 9.2 % (3-14); Neutrophils Absolute Auto 5000 /uL (1500-7000); Neutrophils Percent Auto 77.7 % (50-75); Platelet Count 271 X10^3/uL (150-400); Prothrombin Time 15.7 SECONDS (9.4-12.5); Red Blood Cell Count 4.34 X10^6/uL (4.5-5.9); Red Cell Distribution Width 14.1 % (11.6-14.8); White Blood Cell Count 6.5 X10^3/uL (4.5-11.0)
[2023-11-11 16:54] LABS: PTT Partial Thromboplastin Tim 40 SECONDS (25.1-36.5)
[2023-11-11 16:56] LABS: Lactate (Lactic Acid) 1.6 mmol/L (0.7-2.1)
[2023-11-11 16:57] LABS: Alanine Aminotransferase 26 IU/L (<50); Albumin 3.8 g/dL (3.5-5.0); Albumin Globulin Ratio 1.1 (1.0-2.8); Alkaline Phosphatase 106 U/L (38-126); Aspartate Aminotransferase 41 IU/L (17-59); BUN Creatinine Ratio 9.5 (6-22); Bilirubin Total 1.2 mg/dL (0.2-1.3); Blood Urea Nitrogen 6 mg/dL (9-20); Calcium 9.3 mg/dL (8.4-10.2); Carbon Dioxide 27 mmol/L (22-32); Chloride 99 mmol/L (98-107); Estimated Glomerular Filt Rate > 60 mL/min (>60); Globulin 3.6 g/dL (1.7-4.1); Glucose 98 mg/dL (80-110); HEMOLYSIS 33 (0-50); Lipase 338 U/L (23-300); Potassium 4.1 mmol/L (3.4-5.1); Sodium 133 mmol/L (137-145); Total Protein 7.4 g/dL (6.3-8.2)
[2023-11-11 17:14] LABS: Procalcitonin 0.14 ng/mL (<0.5)
[2023-11-11] MEDS: ACETAMINOPHEN IV 1,000 MG/100 ML VIAL 400 MG IV (17:14)
--- NOTE | 2023-11-11 18:00 | PC.NURSE ---
Pt denies having any pain. Reports feeling better since he arrived.
--- NOTE | 2023-11-11 18:46 | ED.GENADULT ---
HPI - General Adult General Chief complaint: Altered Mental Status Stated complaint: covid +, change in mental status Time Seen by Provider: 11/11/23 16:35 Source: patient and EMS Mode of arrival: EMS History of Present Illness HPI narrative: Patient is an 83-year-old male who is COVID positive who was sent to the emergency department for reported episode of hypotension and hypoxia at the living facility where he lives. Patient was also reported to be febrile and more confused than normal. I evaluated the patient he would received Tylenol in his temperature had improved. He states he knows that he is in the hospital that he ?feels fine? he has a DNR with selective treatment per paperwork that comes from the facility. Patient denies chest pain, shortness of breath, headache. No abdominal pain. He states he does not feel like he needs to throw up. Related Data Home Medications Medication Instructions Recorded Confirmed ondansetron HCl 4 mg tablet 4 mg PO Q6HR PRN Nausea And 09/23/23 11/05/23 Vomiting Previous Rx's Medication Instructions Recorded omeprazole 20 mg capsule,delayed 20 mg PO DAILY #90 caps 06/09/23 release levetiracetam 500 mg tablet 500 mg PO BID #180 tabs 07/28/23 fludrocortisone 0.1 mg tablet 0.2 mg (2 x 0.1 mg) PO DAILY #180 08/18/23 tabs Transport Chair #1 ea 08/20/23 aspirin 81 mg tablet,delayed 81 mg PO DAILY #30 tabs 09/27/23 release atorvastatin 20 mg tablet 80 mg (4 x 20 mg) PO BEDTIME #30 09/27/23 tabs midodrine 5 mg tablet 10 mg (2 x 5 mg) PO 0800,1200,1600 09/27/23 #90 tabs oxycodone 5 mg tablet 5 mg PO Q4HR PRN Pain, Moderate 09/27/23 (4-6) #20 tabs potassium chloride 20 mEq 40 meq (2 x 20 mEq) PO DAILYCC #14 09/27/23 tablet,extended tabs release(part/cryst) (Klor-Con M) sodium chloride 1,000 mg soluble 1,000 mg PO TIDWM #30 tabs 09/27/23 tablet amoxicillin 500 mg-potassium 1 tab PO Q12H #20 tabs 11/07/23 clavulanate 125 mg tablet (Augmentin) Allergies Allergy/AdvReac Type Severity Reaction Status Date / Time No Known Allergies Allergy Verified 11/11/23 16:42 Review of Systems Constitutional Constitutional: Reports system reviewed and no additional complaints, except as documented Cardiovascular Cardiovascular: Reports system reviewed and no additional complaints, except as documented Respiratory Respiratory: Reports system reviewed and no additional complaints, except as documented Musculoskeletal Musculoskeletal: Reports system reviewed and no additional complaints, except as documented Patient History Medical History Hypotension Protein calorie malnutrition History of prostate cancer Seizure Thrombocytopenia Macrocytosis Alcoholic pancreatitis GERD (gastroesophageal reflux disease) Combined hyperlipidemia Falls frequently Intraparenchymal hemorrhage of brain Essential tremor Fatty liver Concussion Right fibular fracture Surgical History Status post radical cystoprostatectomy Status post colonoscopy S/P total hip arthroplasty Family History Father Prostate cancer Kidney problem Mother Old age Social History household members: spouse Smoking Status: Former smoker Tobacco: How many years used: 50 second hand exposure: No alcohol intake: current substance use type: does not use Smoking Status: Former smoker alcohol intake frequency: 0-2 drinks per day Substance Use Type: does not use Exam Initial Vital Signs Initial Vital Signs: Vital Signs Pulse Rate 81 11/11/23 16:32 Pulse Oximetry 95 11/11/23 16:32 HENMT Head: normal to inspection and normocephalic Resp Effort & Inspection: normal respiratory effort Auscultation: clear to auscultation bilaterally Cardio Rate: regular rate Rhythm: regular rhythm Skin General: no rashes or lesions noted Course Orders Ordered: ED Orders 11/11/23 17:02 Blood Culture Stat 11/11/23 18:59 Urine Culture Stat Urine Microscopic Stat Discontinued Medications Acetaminophen (Ofirmev) 1,000 mg in 100 mls @ 400 mls/hr IV NOW ONE Stop: 11/11/23 16:55 Last Infusion: 11/11/23 17:40 Dose: Infused Documented By: Admin: 11/11/23 17:14 Dose: 400 mls/hr Documented By: YING Ondansetron HCl (Ondansetron 4 Mg/2 Ml Inj) 4 mg IV NOW PRN PRN Reason: Nausea And Vomiting Ondansetron HCl (Ondansetron 4 Mg Odt) 4 mg SL NOW PRN PRN Reason: Nausea And Vomiting Vital Signs Vital signs: Vital Signs - 8 hr 11/11/23 18:00 11/11/23 18:00 11/11/23 18:15 Temperature Pulse Rate 83 80 Respiratory Rate 23 27 H Blood Pressure 106/60 Pulse Oximetry 93 95 Oxygen Delivery Method Room Air 11/11/23 18:31 11/11/23 18:35 11/11/23 18:35 Temperature Pulse Rate 82 74 Respiratory Rate 24 23 Blood Pressure 105/64 Pulse Oximetry 93 94 Oxygen Delivery Method Room Air Room Air 11/11/23 18:36 11/11/23 18:36 11/11/23 18:45 Temperature Pulse Rate 72 74 Respiratory Rate 22 22 Blood Pressure 106/55 L Pulse Oximetry 94 93 Oxygen Delivery Method Room Air 11/11/23 19:00 11/11/23 19:01 11/11/23 19:01 Temperature Pulse Rate 74 75 Respiratory Rate 20 22 Blood Pressure 108/53 L Pulse Oximetry 94 94 Oxygen Delivery Method 11/11/23 19:15 11/11/23 19:28 Temperature 98.4 F Pulse Rate 68 Respiratory Rate 22 Blood Pressure Pulse Oximetry 93 Oxygen Delivery Method Room Air Medical Decision Making Lab Data Lab results reviewed: Yes I reviewed the patient's lab results. 11/11/23 16:30 11/11/23 16:30 Labs: Lab Results 11/11/23 11/11/23 Range/Units 16:30 18:59 WBC 6.5 (4.5-11.0) X10^3/uL RBC 4.34 L (4.5-5.9) X10^6/uL Hgb 13.4 L (13.5-17.5) g/dL Hct 39.7 L (41-53) % MCV 91.4 (80-100) fL MCH 30.9 (26-34) PG MCHC 33.8 (30-36) % RDW 14.1 (11.6-14.8) % Plt Count 271 (150-400) X10^3/uL Neut % (Auto) 77.7 H (50-75) % Lymph % (Auto) 9.9 L (25-40) % [place] % (Auto) 9.2 (3-14) % Eos % (Auto) 2.6 (2-4) % Baso % (Auto) 0.6 (0-2) % Neut # (Auto) 5000 (0549-7296) /uL Lymph # (Auto) 600 L (1251-8891) /uL [place] # (Auto) 600 (0-900) /uL Eos # (Auto) 200 (0-450) /uL Baso # (Auto) 0 (0-100) /uL PT 15.7 H (9.4-12.5) SECONDS INR 1.4 H (0.9-1.3) APTT 40 H (25.1-36.5) SECONDS Sodium 133 L (137-145) mmol/L Potassium 4.1 (3.4-5.1) mmol/L Chloride 99 (98-107) mmol/L Carbon Dioxide 27 (22-32) mmol/L BUN 6 L (9-20) mg/dL Creatinine 0.63 L (0.66-1.25) mg/dL Estimated GFR > 60 (>60) mL/min BUN/Creatinine Ratio 9.5 (6-22) Glucose 98 (80-110) mg/dL Lactate 1.6 (0.7-2.1) mmol/L Calcium 9.3 (8.4-10.2) mg/dL Total Bilirubin 1.2 (0.2-1.3) mg/dL AST 41 (17-59) IU/L ALT 26 (<50) IU/L Alkaline Phosphatase 106 (38-126) U/L Total Protein 7.4 (6.3-8.2) g/dL Albumin 3.8 (3.5-5.0) g/dL Globulin 3.6 (1.7-4.1) g/dL Albumin/Globulin Ratio 1.1 (1.0-2.8) Lipase 338 H D (23-300) U/L Procalcitonin 0.14 (<0.5) ng/mL Urine RBC 30-100/hpf H (0-5/HPF) Urine WBC 1-5/hpf (0-5/HPF) Ur Squamous Epith Cells 0-1 /hpf (0-5/HPF) Urine Bacteria Occasional (0-1) (None) Ur Culture Indicated? Specimen cultured Vol Urine Centrifuged Low vol <10ml (spun) A Urine Dip Bedside Urine Glucose Negative Bedside Urine Bilirubin - Negative Bedside Urine Ketone - Negative Urine Specific [place] 1.020 Bedside Urine Occult Blood +++ Bedside Urine pH 6.0 Bedside Urine Protein +/- 15 Bedside Urine Urobilinogen - Negative Bedside Urine Nitrite - Negative Bedside Urine Leukocytes +/- 15 Esterase Point of care testing: Urine Dip Bedside Urine Glucose Negative Bedside Urine Bilirubin - Negative Bedside Urine Ketone - Negative Urine Specific [place] 1.020 Bedside Urine Occult Blood +++ Bedside Urine pH 6.0 Bedside Urine Protein +/- 15 Bedside Urine Urobilinogen - Negative Bedside Urine Nitrite - Negative Bedside Urine Leukocytes +/- 15 Esterase Imaging Data Chest x-ray: Radiologist's Impression: PROCEDURE: XR CHEST 1V INDICATIONS: suspected sepsis TECHNIQUE: One view of the chest was acquired. COMPARISON: [facility], , XR CHEST FOR PICC 1V, 11/04/2023, 18:44. FINDINGS: Surgical changes and devices: None. Lungs and pleura: Lungs are clear. No pleural effusions or pneumothorax. Mediastinum: Mediastinal contours appear normal. Heart size is normal. Bones and chest wall: No suspicious bony lesions. Overlying soft tissues appear unremarkable. IMPRESSION: No acute cardiopulmonary abnormalities or focal airspace disease. ECG Data Attestation: I personally reviewed and interpreted this ECG as follows: Interpretation: Sinus rhythm Ventricular rate 90 Normal axis Normal QRS MDM Narrative Medical decision making narrative: Patient is reported to be COVID positive. He has not hypoxic. Lungs are clear. Not requiring oxygen. Chest x-ray is unremarkable. Tolerating oral intake. No indication for admission to the hospital. Will discharge patient back to living facility. Discharge Plan Departure Patient Disposition: Home Clinical Impression: COVID-19 Instructions: COVID-19 Activity Restrictions/Additional Instructions: Patient can take Tylenol for fevers. He can continue to take all of his other medications as directed. Recommend his primary doctor be consulted in informed of the positive COVID-19 status. Recommend following current CDC guidelines with regard to quarantine. Prescriptions: No Action omeprazole 20 mg capsule,delayed release(DR/EC) 20 mg PO DAILY Qty: 90 3RF levetiracetam 500 mg tablet 500 mg PO BID Qty: 180 3RF fludrocortisone 0.1 mg tablet 0.2 mg PO DAILY Qty: 180 3RF (DME) Transport Chair See Rx Instructions .Route .MEDSUPPLY Qty: 1 0RF Rx Instructions: Transport Chair. Please fit patient with a chair that will fit his halls and doorways at home. amoxicillin-pot clavulanate [Augmentin] 500-125 mg tablet 1 tab PO Q12H Qty: 20 0RF ondansetron HCl 4 mg tablet 4 mg PO Q6HR PRN (Reason: Nausea And Vomiting) midodrine 5 mg Tablet 10 mg PO 0800,1200,1600 Qty: 90 1RF aspirin 81 mg Tablet,Delayed Release (Dr/Ec) 81 mg PO DAILY Qty: 30 1RF potassium chloride [Klor-Con M20] 20 mEq Tablet,Er Particles/Crystals 40 meq PO DAILYCC Qty: 14 0RF atorvastatin 20 mg Tablet 80 mg PO BEDTIME Qty: 30 1RF oxycodone 5 mg Tablet 5 mg PO Q4HR PRN (Reason: Pain, Moderate (4-6)) Qty: 20 0RF sodium chloride 1,000 mg Tablet,Soluble 1,000 mg PO TIDWM Qty: 30 0RF Referrals: Margarita Stoll ARNP [Primary Care Provider] - Stand Alone Forms: Patient Portal/API
[2023-11-11 19:16] LABS: Bacteria Urine Occasional (0-1); RBC Urine 30-100/HPF (0-5/HPF); Urine Volume Low Vol <10mL (spun); WBC Urine 1-5/HPF (0-5/HPF)
[2023-11-11 19:17] LABS: Culture Indicated Urine Specimen Cultured; Squamous Epithelial Cell Urine 0-1 /HPF (0-5/HPF)
== END 2023-11-11 19:32 | disposition home or self-care (01) ==
PROVIDERS: Emergency Medicine; Emergency Provider Emergency Medicine; PCP Nurse Practitioner
DX: U07.1 COVID-19 (principal); R79.89 Other specified abnormal findings of blood chemistry
CPT/HCPCS: 36415; 71045; 80053; 81003; 81015; 83605; 83690; 84145; 85025; 85610; 85730; 87040; 87086; 93005; 96365; 99284; J0136

== ENCOUNTER 2024-01-12 11:27 | Emergency (ER) | payer MEDICARE, SELFPAY ==
[2023-11-05 17:40] VITALS: BMI 25.7
[2024-01-12] VITALS (19 sets, daily range): BP systolic 122–154; BP diastolic 55–87; PULSE 55–85; RESP 14–27; O2SAT 95–99; BMI 24.3
--- NOTE | 2024-01-12 11:46 | DI.CT.S_ITS ---
PROCEDURE: CT HEAD/BRAIN WO CON INDICATIONS: prolonged LOC TECHNIQUE: Noncontrast 4.5 mm thick angled axial sections acquired from the foramen magnum to the vertex, with coronal and sagittal reformats. For radiation dose reduction, the following was used: automated exposure control, adjustment of mA and/or kV according to patient size. COMPARISON: [facility], CT, CT HEAD/BRAIN WO CON, 11/04/2023, 8:56. FINDINGS: Image quality: Diagnostic CSF spaces: Basal cisterns are patent. Lateral ventricles are symmetric. Volume: Vascular calcifications. Periventricular white matter disease is commonly seen with chronic microangiopathy. Volume loss is present. These findings are moderate Brain: Similar focal hyperdensity at the right frontal region, possibly mineralization. No acute gross loss of painting-white differentiation or hematoma. Craniofacial structures: Partial left maxillary opacification. IMPRESSION: No acute intracranial abnormality. If there is high concern for parenchymal pathology, consider further evaluation with MRI. Dictated by: Arash Pruett M.D. on 01/12/2024 at 12:33 Approved by: Arash Pruett M.D. on 01/12/2024 at 12:35
--- NOTE | 2024-01-12 11:46 | DI.RAD.S_ITS ---
PROCEDURE: XR CHEST 1V INDICATIONS: syncope TECHNIQUE: One view of the chest was acquired. COMPARISON: [facility], CR, XR CHEST 1V, 11/11/2023, 16:56. [facility], CR, XR CHEST FOR PICC 1V, 11/04/2023, 18:44. FINDINGS: Surgical changes and devices: None. Lungs and pleura: Similar senescent lung markings without new airspace disease or effusion. Scattered hemidiaphragm eventration. Mediastinum: Normal heart size Bones and chest wall: Degenerative changes. IMPRESSION: No acute radiographic abnormality on this limited single view study. Dictated by: Arash Pruett M.D. on 01/12/2024 at 12:21 Approved by: Arash Pruett M.D. on 01/12/2024 at 12:22
[2024-01-12 11:52] LABS: Add Manual Diff / Slide Review NO; Basophils Absolute Auto 100 /uL (0-100); Basophils Percent Auto 0.7 % (0-2); Eosinophils Absolute Auto 700 /uL (0-450); Eosinophils Percent Auto 7.5 % (2-4); Hematocrit 43.7 % (41-53); Hemoglobin 14.6 g/dL (13.5-17.5); Lymphocytes Absolute Auto 4300 /uL (1100-4500); Lymphocytes Percent Auto 48.7 % (25-40); Mean Corpuscular HGB Conc 33.4 % (30-36); Mean Corpuscular Hemoglobin 30.6 PG (26-34); Mean Corpuscular Volume 91.5 fL (80-100); Monocytes Absolute Auto 600 /uL (0-900); Monocytes Percent Auto 6.9 % (3-14); Neutrophils Absolute Auto 3200 /uL (1500-7000); Neutrophils Percent Auto 36.2 % (50-75); Platelet Count 183 X10^3/uL (150-400); Red Blood Cell Count 4.78 X10^6/uL (4.5-5.9); Red Cell Distribution Width 15.6 % (11.6-14.8); White Blood Cell Count 8.8 X10^3/uL (4.5-11.0)
[2024-01-12 12:00] LABS: Alanine Aminotransferase 15 IU/L (<50); Albumin Globulin Ratio 1.4 (1.0-2.8); Alkaline Phosphatase 61 U/L (38-126); Aspartate Aminotransferase 32 IU/L (17-59); BUN Creatinine Ratio 21.3 (6-22); Blood Urea Nitrogen 16 mg/dL (9-20); Calcium 9.6 mg/dL (8.4-10.2); Carbon Dioxide 27 mmol/L (22-32); Chloride 104 mmol/L (98-107); Estimated Glomerular Filt Rate > 60 mL/min (>60); Globulin 2.9 g/dL (1.7-4.1); Glucose 117 mg/dL (80-110); HEMOLYSIS < 15 (0-50); Potassium 3.2 mmol/L (3.4-5.1); Sodium 140 mmol/L (137-145); Total Protein 6.9 g/dL (6.3-8.2)
[2024-01-12 12:03] LABS: Lactate (Lactic Acid) 4.8 mmol/L (0.7-2.1)
--- NOTE | 2024-01-12 12:05 | PC.NURSE ---
Pt's called EMS after finding pt on the floor in the bathroom. Pt uses a walker to ambulate. EMS found pt to be unconscious. Pt states he last remembers being up to the sink to wash up and woke up with EMS over top of him. He denies dizziness, lightheaded, SOB, chest pain. Reports feeling weak. Pt alert to self, situation, and place. States it is 2021.
[2024-01-12] MEDS: SODIUM CHLORIDE 0.9% 1,000 ML 1000 ML IV (12:08)
[2024-01-12 12:09] LABS: NT-proBNP (BNP-Adult 18+) 854 pg/mL (<450)
[2024-01-12 12:11] LABS: Troponin I < 0.012 ng/mL (0.01-0.034)
--- NOTE | 2024-01-12 12:14 | ED_ITS ---
HPI - General Adult General Chief complaint: Syncope Stated complaint: Syncope Time Seen by Provider: 01/12/24 11:45 Source: patient and EMS Mode of arrival: EMS History of Present Illness HPI narrative: 83-year-old gentleman with a history of orthostatic hypotension, reflux, chronic thrombocytopenia brought into the emergency department for extended hypotensive/syncopal episode episode. He was found on the floor in the bathroom by his this morning. A small abrasion over his right eyebrow. By the time medics arrived he still had not had complete return consciousness. He was given a fluid bolus and brought in for further evaluation. He states that he actually feels fine. He has had these episodes previously. Since going home from the longterm facility on Friday he has been very good about taking all of his prescribed medications including the medications for his orthostatic hypotension. Notes that he ?maybe is not drinking enough water?. He reports that he has been eating and drinking otherwise. No recent fevers he has not been feeling increasingly weak, no vomiting or diarrhea. He notes that his chronic lower thoracic upper lumbar back pain is stable and chronic. Related Data Home Medications Medication Instructions Recorded Confirmed aspirin 81 mg tablet,delayed 81 mg PO DAILY 01/12/24 01/12/24 release atorvastatin 80 mg tablet 80 mg PO DAILY 01/12/24 01/12/24 midodrine 10 mg tablet 10 mg PO 3XD 01/12/24 01/12/24 Previous Rx's Medication Instructions Recorded omeprazole 20 mg capsule,delayed 20 mg PO DAILY #90 caps 06/09/23 release levetiracetam 500 mg tablet 500 mg PO BID #180 tabs 07/28/23 fludrocortisone 0.1 mg tablet 0.2 mg (2 x 0.1 mg) PO DAILY #180 08/18/23 tabs Transport Chair #1 ea 08/20/23 potassium chloride 20 mEq 40 meq (2 x 20 mEq) PO DAILYCC #14 09/27/23 tablet,extended tabs release(part/cryst) (Klor-Con M) sodium chloride 1,000 mg soluble 1,000 mg PO TIDWM #30 tabs 09/27/23 tablet Disabled Parking Permit See Rx Instructions .Route 12/31/23 .COMPLEX #1 unit Allergies Allergy/AdvReac Type Severity Reaction Status Date / Time No Known Allergies Allergy Verified 01/12/24 11:48 Review of Systems Review of Systems Narrative: Pertinent positive and negative findings as per HPI Patient History Medical History Hypotension Protein calorie malnutrition History of prostate cancer Seizure Thrombocytopenia Macrocytosis Alcoholic pancreatitis GERD (gastroesophageal reflux disease) Combined hyperlipidemia Falls frequently Intraparenchymal hemorrhage of brain Essential tremor Fatty liver Concussion Right fibular fracture Surgical History Status post radical cystoprostatectomy Status post colonoscopy S/P total hip arthroplasty Family History Father Prostate cancer Kidney problem Mother Old age Social History household members: spouse Smoking Status: Former smoker Tobacco: How many years used: 50 second hand exposure: No alcohol intake: current substance use type: does not use Smoking Status: Former smoker alcohol intake frequency: 0-2 drinks per day Substance Use Type: does not use Exam Initial Vital Signs Initial Vital Signs: Vital Signs Pulse Rate 57 L 01/12/24 11:48 Respiratory Rate 16 01/12/24 11:48 Blood Pressure 132/60 01/12/24 11:48 Pulse Oximetry 96 01/12/24 11:48 Oxygen Delivery Method Room Air 01/12/24 11:48 General: Older appearing but otherwise Healthy and in no acute distress. Able to give a complete and coherent history. Well-nourished well-developed HEENT: Moist mucous membranes, normal sclera with reactive pupils, small laceration above the right brow Neck: No JVD, no cervical adenopathy Respiratory: Lungs are clear to auscultation, no wheezing no rales no rhonchi. Full and symmetrical air movement Cardiac: Regular rate and rhythm no murmurs no bruits Abdomen: Soft, nontender, good bowel tones, no flank pain Skin: Warm and dry, he does not have significant bruising or contusion Neurologic: Grossly neurologically intact with no obvious asymmetries or abnormalities Extremities: No trauma, well perfused Psych: Cooperative, appropriate insight and affect, cognitively appropriate to the degree that he is able to carry on charming conversation Course Orders Ordered: ED Orders 01/12/24 11:35 Complete Blood Count AUTO DIFF Stat Comprehensive Metabolic Panel Stat Lactate (Lactic Acid) Stat NT-proBNP (BNP-Adult 18+) Stat Procalcitonin Stat Troponin I Stat 01/12/24 11:46 CT head/brain wo con Stat XR chest 1V Stat Urinalysis and Microscopic Stat 01/12/24 12:25 Blood Culture Stat Sodium Chloride (Sodium Chloride 0.9% Flush) 10 ml IV BID ANGEL Sodium Chloride (Sodium Chloride 0.9% Flush) 10 ml IV PRN PRN PRN Reason: Flush Discontinued Medications Sodium Chloride (Normal Saline 0.9%) 1,000 mls @ 1,000 mls/hr IV BOLUS ONE Stop: 01/12/24 12:44 Last Infusion: 01/12/24 13:00 Dose: Infused Documented By: Admin: 01/12/24 12:08 Dose: 1,000 mls/hr Documented By: YING Vital Signs Vital signs: Vital Signs - 8 hr 01/12/24 11:48 01/12/24 11:55 01/12/24 11:55 Pulse Rate 57 L 59 L Respiratory Rate 16 21 Blood Pressure 132/60 122/62 Pulse Oximetry 96 96 Oxygen Delivery Method Room Air 01/12/24 12:00 01/12/24 12:08 01/12/24 12:08 Pulse Rate 55 L Respiratory Rate 14 Blood Pressure 132/72 Pulse Oximetry 98 Oxygen Delivery Method Room Air 01/12/24 12:30 01/12/24 12:30 01/12/24 13:00 Pulse Rate 63 Respiratory Rate 18 Blood Pressure 134/60 151/77 H Pulse Oximetry 96 Oxygen Delivery Method Room Air 01/12/24 13:00 01/12/24 13:30 01/12/24 13:31 Pulse Rate 68 73 Respiratory Rate 19 27 H Blood Pressure 154/72 H Pulse Oximetry 97 97 Oxygen Delivery Method 01/12/24 13:31 Pulse Rate 68 Respiratory Rate 20 Blood Pressure Pulse Oximetry 97 Oxygen Delivery Method Room Air Medical Decision Making Lab Data 01/12/24 11:35 01/12/24 11:35 Labs: Lab Results 01/12/24 Range/Units 11:35 WBC 8.8 (4.5-11.0) X10^3/uL RBC 4.78 (4.5-5.9) X10^6/uL Hgb 14.6 (13.5-17.5) g/dL Hct 43.7 (41-53) % MCV 91.5 (80-100) fL MCH 30.6 (26-34) PG MCHC 33.4 (30-36) % RDW 15.6 H (11.6-14.8) % Plt Count 183 (150-400) X10^3/uL Neut % (Auto) 36.2 L (50-75) % Lymph % (Auto) 48.7 H (25-40) % Marshall % (Auto) 6.9 (3-14) % Eos % (Auto) 7.5 H (2-4) % Baso % (Auto) 0.7 (0-2) % Neut # (Auto) 3200 (8443-5881) /uL Lymph # (Auto) 4300 (9811-4163) /uL Marshall # (Auto) 600 (0-900) /uL Eos # (Auto) 700 H (0-450) /uL Baso # (Auto) 100 (0-100) /uL Sodium 140 (137-145) mmol/L Potassium 3.2 L (3.4-5.1) mmol/L Chloride 104 (98-107) mmol/L Carbon Dioxide 27 (22-32) mmol/L BUN 16 (9-20) mg/dL Creatinine 0.75 (0.66-1.25) mg/dL Estimated GFR > 60 (>60) mL/min BUN/Creatinine Ratio 21.3 (6-22) Glucose 117 H (80-110) mg/dL Lactate 4.8 H* (0.7-2.1) mmol/L Calcium 9.6 (8.4-10.2) mg/dL Total Bilirubin 1.0 (0.2-1.3) mg/dL AST 32 (17-59) IU/L ALT 15 (<50) IU/L Alkaline Phosphatase 61 (38-126) U/L Troponin I < 0.012 (0.01-0.034) ng/mL NT-Pro-B Natriuret Pep 854 H (<450) pg/mL Total Protein 6.9 (6.3-8.2) g/dL Albumin 4.0 (3.5-5.0) g/dL Globulin 2.9 (1.7-4.1) g/dL Albumin/Globulin Ratio 1.4 (1.0-2.8) Procalcitonin 0.06 (<0.5) ng/mL Point of Care Testing Glucose POC 114 Point of care testing: Point of Care Testing Glucose POC 114 MDM Narrative Medical decision making narrative: CC: Syncope with prolonged loss of consciousness Complicating co-morbidities: Chronic orthostatic hypotension, discharge from longterm facility 3 days ago after sepsis secondary to urinary tract infection than complicated by COVID Data collected from: patient, medics Code status: Patient has a POLST form that indicates DNR with selective treatment Medical records reviewed: Discharge summary from November 07 is reviewed, patient was admitted for sepsis with acute cholangitis with a note of demand ischemia, new diagnosis of atrial fibrillation and note of remote intracranial hemorrhage and continued orthostatic hypotension. He was discharged home to a longterm facility Differential considered: Sepsis from multiple sources, stroke, orthostatic hypotension Exam documented above, pertinent findings include: Patient appears much healthier than his numbers and initial report would suggest. The small laceration over his brow is repaired with skin glue. He is alert and appropriate. No new abrasions contusions or other findings. Lab Test results independently reviewed as above. Pertinent findings: CBC is actually relatively reassuring no significant anemia, no leukocytosis Chemistries are notable for potassium minimally low at 3.2, normal renal function liver studies are reassuring and bilirubin is at 1.0 Lactic acid is elevated at 4.8 ProBNP is minimally elevated at 8:54 a.m. Procalcitonin is not elevated Independently reviewed EKG: Sinus bradycardia at a rate of 58, otherwise normal intervals, no acute ischemic changes Imaging studies independently reviewed: EKG shows slight hyperinflation, no infiltrates and no significant cephalization, question of right upper lobe pulmonary developing infiltrates Consultations: Treatments: Patient is given a L of IV fluid and lunch. Lactic acid is redrawn Re-evaluations: Patient was able to eat part of his lunch, his is now present and she is quite concerned he is continued to have these hypotensive episodes after coming home from the longterm facility. She states she is encouraging him to eat, he is giving all of his medications prescribed Discussion: 83-year-old gentleman with a history of orthostatic hypotension recent discharge from longterm facility actually seems to be doing relatively well. No evidence of infectious etiology to suggest that his elevated lactic acid is related to sepsis. He is able to eat and drink without difficulties. Lactic acid is improving nicely. He is able to stand without significant orthostatic changes. Blood pressure supine 148/76 standing 122/55. Minimal change to heart rate. Patient is currently on levetiracetam description of the events today do not sound like a seizure nor postictal activity. Long discussion with his who is asking appropriate questions about safety of discharge home. The said that they had an appointment their primary care physician today to make sure medications were appropriate. With hospitalization, longterm facility then discharge home there are multiple different refills, doses and confusion. Will update our list and make sure she has a copy of that with my current recommendations. It looks like he had not been getting the fludrocortisone at home we will give her another prescription for this would like this to continue. At 1 point she had 5 mg midodrine pills and was giving him 1 in the morning and 1 at night and then at 1 point that was change to 10 b.i.d. and she also has 10 mg pills. Will clarify medicine list with print out, currently matching med list in the computer. Also talked about increasing salt. Recommended a can of the 8 juice daily which will provide a significant sodium bolus. At this point patient feels fine, looks fine, is not meeting any criteria for hospitalization. is appropriately concerned. I still think discharge home is going to be appropriate today. Discharge Plan Departure Patient Disposition: Home Clinical Impression: Chronic orthostatic hypotension, Syncope due to orthostatic hypotension Activity Restrictions/Additional Instructions: Thank you for coming in today. I understand it is incredibly frustrating to have continued episodes of passing out and ending up on the floor. Fortunately, the workup today was very reassuring with no evidence of infection, heart problems, acute liver problems acute kidney problems. You responded nicely to a L of fluid We spent some time looking at medications. With multiple physicians between hospital stays usp stays and coming home with prior prescriptions medication dosing and recommendations can get mixed up. I have printed out a list of medications as I think will best support him. There was some confusion over the midodrine (the ?anti? blood pressure medication). You have had prescriptions for both the 5 mg and the 10 mg size. The maximum dose is 10 mg 3 times a day and I would like you to use this. Please check the dosing on the bottle, if you are using the 5 mg pills this will be 2 pills at a time. It is also not clear that he has the fludrocortisone at home. I am going to refill this prescription. He needs to take 2 pills daily. Is important to drink a minimum of 3 large glasses of water in a 24 hour. More is okay I would also recommend foods that do have high levels of salt. [place] juice may be an excellent option. It has lots of salt and we will also provide a bit more hydration. Please do reschedule your appointment with Margarita davison. When you go in please take all of your bottles of medication along with a list of medication as you were giving them to make sure that all medications, dosing and timing are appropriate We are going to arrange for either a medical home health nurse to come out to your house tomorrow to review all of your medications to make sure that the doses that you have match what we want him to be taking Prescriptions: No Action Disabled Parking Permit See Rx Instructions .ROUTE .COMPLEX Qty: 1 0RF Rx Instructions: I find this patient to be medically disabled and qualify for disabled parking as indicated and signed on the accompanying disabled parking application for individuals. omeprazole 20 mg capsule,delayed release(DR/EC) 20 mg PO DAILY Qty: 90 3RF levetiracetam 500 mg tablet 500 mg PO BID Qty: 180 3RF fludrocortisone 0.1 mg tablet 0.2 mg PO DAILY Qty: 180 3RF (DME) Transport Chair See Rx Instructions .Route .MEDSUPPLY Qty: 1 0RF Rx Instructions: Transport Chair. Please fit patient with a chair that will fit his halls and doorways at home. potassium chloride [Klor-Con M20] 20 mEq Tablet,Er Particles/Crystals 40 meq PO DAILYCC Qty: 14 0RF sodium chloride 1,000 mg Tablet,Soluble 1,000 mg PO TIDWM Qty: 30 0RF midodrine 10 mg tablet 10 mg PO 3XD atorvastatin 80 mg tablet 80 mg PO DAILY aspirin 81 mg tablet,delayed release (DR/EC) 81 mg PO DAILY Referrals: Margarita Davison ARNP [Primary Care Provider] - Stand Alone Forms: Patient Portal/API
[2024-01-12 12:16] LABS: Procalcitonin 0.06 ng/mL (<0.5)
[2024-01-12 13:24] LABS: Reflexed Lactate in 2 Hours Y
[2024-01-12 14:18] LABS: Lactate 2HR (Lactic Acid Rflx) 1.2 mmol/L (0.7-2.1)
[2024-01-12 14:36] LABS: Appearance Urine UA CLEAR; Bilirubin Urine UA NEGATIVE (NEGATIVE); Color Urine UA YELLOW; Glucose Urine UA NEGATIVE (Negative); Ketones Urine UA NEGATIVE (NEGATIVE); Leukocyte Esterase Urine UA TRACE (NEGATIVE); Nitrite Urine UA NEGATIVE (Negative); Occult Blood Urine UA NEGATIVE (Negative); Protein Urine UA NEGATIVE (Negative); Urobilinogen Urine UA 0.2 E.U./dL (0.2)
[2024-01-12 14:44] LABS: Bacteria Urine None Seen; Culture Indicated Urine Specimen Cultured; RBC Urine None Seen (0-5/HPF); Squamous Epithelial Cell Urine None Seen (0-5/HPF); Urine Volume 10mL (spun); WBC Urine 0-1/HPF (0-5/HPF)
--- NOTE | 2024-01-12 17:05 | CM.SWNOTE ---
ED SCIENTIFIC MANAGER Note SCIENTIFIC MANAGER receives consult from recharger upon patient's d/c. Patient is 83 y/o male who presents to ED via EMS from home due to concern for syncopal episode. SCIENTIFIC MANAGER contacts [facility] and [facility] and is able to identify that patient was at [facility] from 11/11/23- 12/01/23 and then moved to [facility]. It is reported that patient left [facility] over the weekend and is now residing at home. ED provider wanted to ensure that patient is current with his prescriptions and medications at home, patient was supposed to attend an appt with PCP MELVINA Salguero today but presented to the ED instead. SCIENTIFIC MANAGER coordinates with [employer], it is reported that there is a current [facility] referral. Calvin agrees to meet with patient and spouse at home tomorrow to follow up and inquire about patient's current medications. SCIENTIFIC MANAGER speaks with [facility] and it is reported that they had a referral for patient when patient was at [facility] and now patient is in need of new referral to continue patient's care at home. ED provider signs F2F, SCIENTIFIC MANAGER submits orders. SCIENTIFIC MANAGER informs [facility] of new referral. SCIENTIFIC MANAGER calls patient's spouse regarding new continuation of care [facility] referral and referral for Calvin Leav[facility] bar attendant who will be planning to see patient at home tomorrow. Spouse indicates agreement and understanding. SCIENTIFIC MANAGER encourages patient's spouse to reschedule PCP appt with Margarita Stoll as well. Plan: [employer] and [facility] referral in place to follow up with patient. Patient to f/u with PCP. ZAHRA Winters
== END 2024-01-12 16:05 | disposition home or self-care (01) ==
PROVIDERS: Emergency Provider Emergency Medicine; PCP Nurse Practitioner
DX: I95.1 Orthostatic hypotension (principal)
CPT/HCPCS: 36415; 70450; 71045; 80053; 81001; 83605; 83880; 84145; 84484; 85025; 87040; 87086; 93005; 96360; 99284

== ENCOUNTER → 2024-02-25 11:35 | Outpatient (CLI) | payer MEDICARE, SELFPAY ==
[2023-11-05 17:40] VITALS: BMI 25.7
[2024-02-25 14:59] LABS: Alanine Aminotransferase 13 IU/L (<50); Albumin 3.9 g/dL (3.5-5.0); Albumin Globulin Ratio 1.8 (1.0-2.8); Alkaline Phosphatase 70 U/L (38-126); Aspartate Aminotransferase 31 IU/L (17-59); BUN Creatinine Ratio 13.9 (6-22); Bilirubin Total 0.7 mg/dL (0.2-1.3); Blood Urea Nitrogen 10 mg/dL (9-20); Calcium 8.6 mg/dL (8.4-10.2); Carbon Dioxide 33 mmol/L (22-32); Chloride 106 mmol/L (98-107); Cholesterol 147 mg/dL (140-199); Estimated Glomerular Filt Rate > 60 mL/min (>60); Globulin 2.2 g/dL (1.7-4.1); Glucose 84 mg/dL (80-110); HDL Cholesterol 73 mg/dL (40-60); HEMOLYSIS < 15 (0-50); LDL Cholesterol Calculated 54 mg/dL (<100); Magnesium 1.2 mg/dL (1.6-2.3); Potassium 3.9 mmol/L (3.4-5.1); Sodium 143 mmol/L (137-145); Total Protein 6.1 g/dL (6.3-8.2); Triglycerides 101 mg/dL (35-150)
[2024-02-25 15:09] LABS: Free T3, Triiodothyronine Free 3.63 pg/mL (2.77-5.27); Free T4, Direct Thyroxine 1.14 ng/dL (0.78-2.19)
[2024-02-25 15:22] LABS: Thyroid Stimulating Hormone 3.56 uIU/mL (0.47-4.68)
[2024-02-25 15:36] LABS: Prostate Specific Antigen Scrn < 0.064 ng/mL (0.1-4.0)
== END ==
LOC: LAB 11:36
PROVIDERS: PCP Nurse Practitioner; Referring Provider Nurse Practitioner; Visit Provider Nurse Practitioner
DX: Z12.5 Encounter for screening for malignant neoplasm of prostate (principal); R55 Syncope and collapse; E46 Unspecified protein-calorie malnutrition; R53.1 Weakness; I95.9 Hypotension, unspecified; R56.9 Unspecified convulsions; F10.20 Alcohol dependence, uncomplicated; I10 Essential (primary) hypertension
CPT/HCPCS: 36415; 80053; 80061; 83735; 84439; 84443; 84481; G0103

== ENCOUNTER 2024-03-28 10:26 | Emergency (ER) | payer MEDICARE, SELFPAY ==
[2023-11-05 17:40] VITALS: BMI 25.7
[2024-03-28] VITALS (19 sets, daily range): BP systolic 130–169; BP diastolic 71–79; PULSE 69–84; RESP 16–35; TEMP 36.6; O2SAT 92–98; BMI 25.2
--- NOTE | 2024-03-28 10:34 | EKG_ITS ---
[address] [id number] [address] [address] Test Date: 2024-03-28 Pat Name: Carlos Jansen Department: Room: Gender: Male Analytics Intern: MYAH : 1940 Requested By: Order Number: [id number] Reading MD: Ebenezer Dowell MD Measurements Intervals [place] Rate: 81 P: 84 KS: 172 QRS: 35 QRSD: 76 T: 80 QT: 402 QTc: 466 Interpretive Statements Normal sinus rhythm Electronically Signed On 03-28-2024 15:34:15 PDT by Ebenezer Dowell MD
--- NOTE | 2024-03-28 10:38 | DI.CT.S_ITS ---
PROCEDURE: CT CERVICAL SPINE WO CON INDICATIONS: Fall, hit head TECHNIQUE: Noncontrast 3 mm thick sections acquired from the skull base to the T4 level. Sagittal and coronal reformats were then constructed. For radiation dose reduction, the following was used: automated exposure control, adjustment of mA and/or kV according to patient size. COMPARISON: [facility], CT, CT HEAD/BRAIN WO CON, 03/28/2024, 10:40. [facility], CT, CT CERVICAL SPINE WO CON, 09/26/2022, 15:35. [facility], CT, CT CERVICAL SPINE WO CON, 06/15/2023, 14:44. FINDINGS: Image quality: Excellent. Bones: No fractures or dislocations. Visualized superior ribs are intact. Multiple levels of significant cervical spine degenerative change can be seen. Soft tissues: Prevertebral soft tissues are normal in thickness. No paravertebral hematomas. No apical pneumothoraces. Note is made of age-appropriate brain parenchymal volume loss and chronic small vessel ischemic changes. IMPRESSION: No displaced fracture or traumatic subluxation. Significant underlying cervical spine degenerative change can be seen. Dictated by: Juan Marie M.D. on 03/28/2024 at 10:23 Approved by: Juan Marie M.D. on 03/28/2024 at 10:24
--- NOTE | 2024-03-28 10:38 | DI.CT.S_ITS ---
PROCEDURE: CT HEAD/BRAIN WO CON INDICATIONS: Fall, hit head, not on thinners TECHNIQUE: Noncontrast 4.5 mm thick angled axial sections acquired from the foramen magnum to the vertex, with coronal and sagittal reformats. For radiation dose reduction, the following was used: automated exposure control, adjustment of mA and/or kV according to patient size. COMPARISON: [facility], CT, CT HEAD/BRAIN WO CON, 11/04/2023, 8:56. [facility], CT, CT CERVICAL SPINE WO CON, 03/28/2024, 10:40. [facility], CT, CT HEAD/BRAIN WO CON, 01/12/2024, 12:02. FINDINGS: Image quality: Mild streak artifact can be seen through the skull base. CSF spaces: Basal cisterns are patent. No extra-axial fluid collections. The ventricles are symmetric in size and shape. Brain: Within the right frontal lobe, there is a small amount of intraparenchymal hemorrhage seen, as on series 2, image 33 and on series 4 image 18. No intracranial masses. There is cerebral volume loss for age, with resultant ventricular and sulcal prominence. There are periventricular and deep white matter chronic small vessel ischemic changes. There is intracranial internal carotid artery atherosclerosis. Skull and face: Calvarium and visualized facial bones appear intact, without suspicious lesions. Sinuses: Visualized sinuses and mastoids are clear. IMPRESSION: A small amount of intraparenchymal hemorrhage is seen involving the right frontal lobe. Note: Case discussed by telephone with Dr. Rodriguez at 11:22 a.m. Ewen time on March 28, 2024. Dictated by: Juan Marie M.D. on 03/28/2024 at 10:20 Approved by: Juan Marie M.D. on 03/28/2024 at 10:23
--- NOTE | 2024-03-28 10:42 | ED.GENADULT ---
HPI - General Adult General Chief complaint: Fall Stated complaint: Fall Time Seen by Provider: 03/28/24 10:34 Source: patient and EMS Mode of arrival: EMS Limitations: no limitations History of Present Illness HPI narrative: Patient is an 83-year-old male. He was brought in by EMS this morning. Patient states that he was unsure as to why he was here today. He states he did fall yesterday. He potentially hit his head. He reports no injuries from the fall. He uses a walker at baseline to ambulate. Per EMS report the patient's thought that he was somewhat more altered this morning than normal. He also was unable to use the walker. Patient states he was not in any pain. He thinks he just tripped yesterday but is unsure of the events that led to the fall. He does fall quite often. He does not think that he was on any blood thinners. Reports no chest pain, shortness of breath, headache, vision changes or abdominal pain. He reports no extremity injuries. Related Data Home Medications Medication Instructions Recorded Confirmed aspirin 81 mg tablet,delayed 81 mg PO DAILY 01/12/24 01/20/24 release ondansetron HCl 4 mg tablet 4 mg PO Q8H PRN 02/25/24 02/25/24 Previous Rx's Medication Instructions Recorded Transport Chair #1 ea 08/20/23 sodium chloride 1,000 mg soluble 1,000 mg PO TIDWM #30 tabs 09/27/23 tablet Disabled Parking Permit See Rx Instructions .Route 12/31/23 .COMPLEX #1 unit atorvastatin 80 mg tablet 80 mg PO DAILY #90 tabs 02/04/24 midodrine 10 mg tablet 10 mg PO 3XD #270 tabs 02/04/24 potassium chloride 20 mEq 40 meq (2 x 20 mEq) PO DAILYCC 02/04/24 tablet,extended #180 tabs release(part/cryst) (Klor-Con M) fludrocortisone 0.1 mg tablet 0.2 mg (2 x 0.1 mg) PO DAILY #180 02/25/24 tabs levetiracetam 500 mg tablet 500 mg PO BID #180 tabs 02/25/24 omeprazole 20 mg capsule,delayed 20 mg PO DAILY #90 caps 02/25/24 release Allergies Allergy/AdvReac Type Severity Reaction Status Date / Time No Known Allergies Allergy Verified 03/28/24 10:45 Review of Systems Review of Systems Narrative: See HPI Patient History Medical History Hypotension Protein calorie malnutrition History of prostate cancer Seizure Thrombocytopenia Macrocytosis Alcoholic pancreatitis GERD (gastroesophageal reflux disease) Combined hyperlipidemia Falls frequently Intraparenchymal hemorrhage of brain Essential tremor Fatty liver Concussion Right fibular fracture Surgical History Status post radical cystoprostatectomy Status post colonoscopy S/P total hip arthroplasty Family History Father Prostate cancer Kidney problem Mother Old age Social History household members: spouse Smoking Status: Former smoker Tobacco: How many years used: 50 second hand exposure: No alcohol intake: current substance use type: does not use Smoking Status: Former smoker alcohol intake frequency: 0-2 drinks per day Substance Use Type: does not use Exam Initial Vital Signs Initial Vital Signs: Vital Signs Pulse Rate 80 03/28/24 10:29 Respiratory Rate 19 03/28/24 10:29 Pulse Oximetry 95 03/28/24 10:29 Const General: cooperative and No ill appearing HENMT Head: normal to inspection and normocephalic Resp Effort & Inspection: normal respiratory effort Auscultation: clear to auscultation bilaterally Cardio Rate: regular rate Rhythm: regular rhythm GI Inspection: normal to inspection and non-distended Back/Spine/Pelvis Cervical Spine: No cervical spinal tenderness Skin Other: Abrasions and bruising to the back of the left hand that appeared to be several days old. Patient states that these were not from the fall from yesterday. Neuro General: patient alert, patient awake, patient oriented x3 and moves all extremities Speech: speech normal Extrem Other: Other than the bruising to the back of the left hand reports no discomfort with palpation and movement of bilateral lower extremities or bilateral upper extremities. Scores [place] CT Head Rule Age <16 years old: No Patient on blood thinners: No Seizure after injury: No Exclusion: Patient NOT Excluded, Proceed to next steps GCS < 15 at 2 hr post trauma: No Suspected open or depressed skull fracture: No Any sign of basilar skull fracture (hemotympanum, raccoon eyes, Garcia's sign, CSF shayla-/rhinorrhea): No Two or more episodes of vomiting: No Age greater or equal to 65 years: Yes Retrograde amnesia to the event greater or equal to 30 min: No Dangerous Mechanism (pedestrian vs. mv, occupant ejected from mv, fall from >3 ft or > 5 stairs): No Recommendation: Consider CT. The [place] Head CT Rule cannot rule out need for Imaging. GCS Alicia coma scale eye opening: Spontaneous Alicia coma scale verbal response: Orientated Alicia coma scale motor response: Obey commands Alicia coma scale total score: 15 Nexus Score for C-Spine Focal Neurologic deficit present: No Midline spinal tenderness present: No Altered level of conciousness present: No Intoxication present: No Distracting Injury Present: No Nexus Criteria for C-spine: 0 Course Orders Ordered: ED Orders 03/28/24 10:30 Complete Blood Count AUTO DIFF Stat Comprehensive Metabolic Panel Stat Lipase Stat 03/28/24 10:38 CT cervical spine wo con Stat CT head/brain wo con Stat EKG-12 Lead Stat 03/28/24 11:59 XR hand LT min 3V Stat XR shoulder LT min 2V Stat 03/28/24 15:21 CT angio head and neck Stat CT head/brain wo con Stat 03/28/24 17:36 Consult to STATEMENT CLERKS MANAGER - Central Supply Technician Stat Vital Signs Vital signs: Vital Signs - 8 hr 03/28/24 10:29 03/28/24 10:30 03/28/24 10:41 Temperature 97.9 F Pulse Rate 80 82 82 Respiratory Rate 19 23 17 Blood Pressure 136/79 Pulse Oximetry 95 96 98 Oxygen Delivery Method Room Air 03/28/24 10:53 03/28/24 10:53 03/28/24 11:00 Temperature Pulse Rate 80 80 Respiratory Rate 21 21 Blood Pressure 155/77 H Pulse Oximetry 95 94 Oxygen Delivery Method 03/28/24 11:00 03/28/24 11:30 03/28/24 11:30 Temperature Pulse Rate 75 Respiratory Rate 18 Blood Pressure 136/72 133/73 Pulse Oximetry 95 Oxygen Delivery Method 03/28/24 12:00 03/28/24 12:00 03/28/24 12:30 Temperature Pulse Rate 78 76 Respiratory Rate 20 20 Blood Pressure 152/77 H Pulse Oximetry 96 97 Oxygen Delivery Method 03/28/24 12:30 03/28/24 13:00 03/28/24 13:00 Temperature Pulse Rate 74 Respiratory Rate 19 Blood Pressure 142/76 H 131/71 Pulse Oximetry 95 Oxygen Delivery Method 03/28/24 13:30 03/28/24 13:30 03/28/24 14:00 Temperature Pulse Rate 74 69 Respiratory Rate 18 19 Blood Pressure 130/72 Pulse Oximetry 96 96 Oxygen Delivery Method 03/28/24 14:00 03/28/24 14:30 03/28/24 14:30 Temperature Pulse Rate 70 Respiratory Rate 20 Blood Pressure 148/74 H 152/78 H Pulse Oximetry Oxygen Delivery Method 03/28/24 15:00 03/28/24 15:00 03/28/24 15:37 Temperature Pulse Rate 71 79 Respiratory Rate 22 35 H Blood Pressure 144/75 H Pulse Oximetry 97 96 Oxygen Delivery Method 03/28/24 16:00 03/28/24 16:37 03/28/24 17:00 Temperature Pulse Rate 72 84 81 Respiratory Rate 23 Blood Pressure 144/72 H Pulse Oximetry 95 92 96 Oxygen Delivery Method 03/28/24 17:08 03/28/24 17:54 Temperature Pulse Rate 75 77 Respiratory Rate 16 20 Blood Pressure 169/77 H 158/77 H Pulse Oximetry 96 96 Oxygen Delivery Method Room Air Room Air Medical Decision Making Medical Records Medical records reviewed: Yes I reviewed the patient's medical records. Lab Data Lab results reviewed: Yes I reviewed the patient's lab results. 03/28/24 10:30 03/28/24 10:30 Labs: Lab Results 03/28/24 Range/Units 10:30 WBC 6.4 (4.5-11.0) X10^3/uL RBC 4.39 L (4.5-5.9) X10^6/uL Hgb 14.2 (13.5-17.5) g/dL Hct 42.1 (41-53) % MCV 95.9 (80-100) fL MCH 32.3 (26-34) PG MCHC 33.7 (30-36) % RDW 15.3 H (11.6-14.8) % Plt Count 210 (150-400) X10^3/uL Neut % (Auto) 56.1 (50-75) % Lymph % (Auto) 25.7 (25-40) % [place]olls % (Auto) 11.4 (3-14) % Eos % (Auto) 5.6 H (2-4) % Baso % (Auto) 1.2 (0-2) % Neut # (Auto) 3600 (6421-7454) /uL Lymph # (Auto) 1700 (3758-6679) /uL [place] # (Auto) 700 (0-900) /uL Eos # (Auto) 400 (0-450) /uL Baso # (Auto) 100 (0-100) /uL Sodium 138 (137-145) mmol/L Potassium 3.5 (3.4-5.1) mmol/L Chloride 105 (98-107) mmol/L Carbon Dioxide 29 (22-32) mmol/L BUN 20 (9-20) mg/dL Creatinine 0.83 (0.66-1.25) mg/dL Estimated GFR > 60 (>60) mL/min BUN/Creatinine Ratio 24.1 H (6-22) Glucose 96 (80-110) mg/dL Calcium 9.3 (8.4-10.2) mg/dL Total Bilirubin 1.2 (0.2-1.3) mg/dL AST 50 (17-59) IU/L ALT 15 (<50) IU/L Alkaline Phosphatase 52 (38-126) U/L Total Protein 7.1 (6.3-8.2) g/dL Albumin 4.0 (3.5-5.0) g/dL Globulin 3.1 (1.7-4.1) g/dL Albumin/Globulin Ratio 1.3 (1.0-2.8) Lipase 48 (23-300) U/L Imaging Data CT scan - head: Radiologist's Impression: PROCEDURE: CT HEAD/BRAIN WO CON INDICATIONS: Fall, hit head, not on thinners TECHNIQUE: Noncontrast 4.5 mm thick angled axial sections acquired from the foramen magnum to the vertex, with coronal and sagittal reformats. For radiation dose reduction, the following was used: automated exposure control, adjustment of mA and/or kV according to patient size. COMPARISON: [facility], CT, CT HEAD/BRAIN WO CON, 11/04/2023, 8:56. [facility], CT, CT CERVICAL SPINE WO CON, 03/28/2024, 10:40. [facility], CT, CT HEAD/BRAIN WO CON, 01/12/2024, 12:02. FINDINGS: Image quality: Mild streak artifact can be seen through the skull base. CSF spaces: Basal cisterns are patent. No extra-axial fluid collections. The ventricles are symmetric in size and shape. Brain: Within the right frontal lobe, there is a small amount of intraparenchymal hemorrhage seen, as on series 2, image 33 and on series 4 image 18. No intracranial masses. There is cerebral volume loss for age, with resultant ventricular and sulcal prominence. There are periventricular and deep white matter chronic small vessel ischemic changes. There is intracranial internal carotid artery atherosclerosis. Skull and face: Calvarium and visualized facial bones appear intact, without suspicious lesions. Sinuses: Visualized sinuses and mastoids are clear. IMPRESSION: A small amount of intraparenchymal hemorrhage is seen involving the right frontal lobe. CT - cervical spine: Radiologist's Impression: PROCEDURE: CT CERVICAL SPINE WO CON INDICATIONS: Fall, hit head TECHNIQUE: Noncontrast 3 mm thick sections acquired from the skull base to the T4 level. Sagittal and coronal reformats were then constructed. For radiation dose reduction, the following was used: automated exposure control, adjustment of mA and/or kV according to patient size. COMPARISON: [facility], CT, CT HEAD/BRAIN WO CON, 03/28/2024, 10:40. [facility], CT, CT CERVICAL SPINE WO CON, 09/26/2022, 15:35. [facility], CT, CT CERVICAL SPINE WO CON, 06/15/2023, 14:44. FINDINGS: Image quality: Excellent. Bones: No fractures or dislocations. Visualized superior ribs are intact. Multiple levels of significant cervical spine degenerative change can be seen. Soft tissues: Prevertebral soft tissues are normal in thickness. No paravertebral hematomas. No apical pneumothoraces. Note is made of age-appropriate brain parenchymal volume loss and chronic small vessel ischemic changes. IMPRESSION: No displaced fracture or traumatic subluxation. Significant underlying cervical spine degenerative change can be seen. Extremity x-ray #1: Radiologist's Impression: PROCEDURE: XR SHOULDER LT MIN 2V INDICATIONS: pain after fall TECHNIQUE: 3 views of the shoulder were acquired. COMPARISON: None. FINDINGS: Bones: No acute fractures or dislocations. No suspicious bony lesions. Visualized ribs appear intact. Jdie-mm-hkhfcjjz acromioclavicular joint osteoarthrosis. Soft tissues: No suspicious soft tissue calcifications. IMPRESSION: No acute osseous abnormality. If symptoms persist or if there is continued clinical concern, cross-sectional imaging such as MRI or CT may be helpful for further evaluation. Extremity x-ray #2: Radiologist's Impression: PROCEDURE: XR HAND LT MIN 3V INDICATIONS: Pain and bruising after fall TECHNIQUE: 3 views of the hand(s) acquired. COMPARISON: [facility], CR, XR HAND LT MIN 3V, 09/23/2023, 16:06. FINDINGS: Bones: Interval amputation of the index finger at the distal interphalangeal joint. Questionable nondisplaced intra-articular fracture at the volar base of the 1st proximal phalanx which is not confirmed on additional views. Carpal bones are normally aligned. No suspicious bony lesions. Soft tissues: Chondrocalcinosis versus posttraumatic changes adjacent to the ulnar styloid. IMPRESSION: 1. Questionable nondisplaced intra-articular fracture at the volar aspect of the 1st proximal phalangeal base versus superimposed osseous structures, not seen in additional views. Recommend correlation for point tenderness. 2. Interval amputation of the 2nd distal phalanx. Repeat head CT: Radiologist's Impression: ADDENDUMThis report includes an Addendum and supersedes previous reports for this exam. PROCEDURE: CT HEAD/BRAIN WO CON INDICATIONS: Evaluate progression of intraparenchymal hemorrhage TECHNIQUE: Noncontrast 4.5 mm thick angled axial sections acquired from the foramen magnum to the vertex, with coronal and sagittal reformats. For radiation dose reduction, the following was used: automated exposure control, adjustment of mA and/or kV according to patient size. COMPARISON: [facility], CT, CT HEAD/BRAIN WO CON, 01/12/2024, 12:02. [facility], CT, CT HEAD/BRAIN WO CON, 11/04/2023, 8:56. [facility], CT, CT ANGIO HEAD AND NECK, 03/28/2024, 15:29. [facility], CT, CT HEAD/BRAIN WO CON, 03/28/2024, 10:40. FINDINGS: Image quality: Diagnostic. CSF spaces: Basal cisterns are patent. No extra-axial fluid collections. The ventricles are symmetric in size and shape. Brain: A small amount of intracranial hemorrhage is again seen within the right frontal lobe, as demonstrated on series 3, image 22. This is unchanged compared to the examination performed earlier in the day. No new hemorrhage is seen. No intracranial masses. There is cerebral volume loss for age, with resultant ventricular and sulcal prominence. There are periventricular and deep white matter chronic small vessel ischemic changes. There is intracranial internal carotid artery atherosclerosis. Skull and face: Calvarium and visualized facial bones appear intact, without suspicious lesions. Sinuses: Rvtb-jt-whyoiiuy mucosal thickening can be seen within the inferior right maxillary sinus. Visualized sinuses and mastoids are otherwise clear. IMPRESSION: Stable right frontal lobe intraparenchymal hemorrhage. Dictated by: Juan Marie M.D. on 03/28/2024 at 14:48 Approved by: Juan Marie M.D. on 03/28/2024 at 14:49 ADDENDUM: COMPARISON:[facility], CT, CT HEAD/BRAIN WO CON, 01/24/2022, 16:26. This patient does not have acute intracranial hemorrhage, yet there is a stable hyperdensity seen within the right frontal lobe, which is unchanged compared to 202 and is felt most likely to be related to a benign, calcified lesion. Note: Contents of this addendum discussed by telephone with Dr. Rodriguez at 3:56 p.m. [place] time on March 28, 2024. Dictated by: Juan Marie M.D. on 03/28/2024 at 15:00 Approved by: Juan Marie M.D. on 03/28/2024 at 15:01 Addendum Dictated By: Juan Marie MD Addendum Signed By: 03/28/241600 Addendum Cosigned By: DD/ TD/TT: 03/28/24 PROCEDURE: CT HEAD/BRAIN WO CON INDICATIONS: Evaluate progression of intraparenchymal hemorrhage TECHNIQUE: Noncontrast 4.5 mm thick angled axial sections acquired from the foramen magnum to the vertex, with coronal and sagittal reformats. For radiation dose reduction, the following was used: automated exposure control, adjustment of mA and/or kV according to patient size. COMPARISON: [facility], CT, CT HEAD/BRAIN WO CON, 01/12/2024, 12:02. [facility], CT, CT HEAD/BRAIN WO CON, 11/04/2023, 8:56. [facility], CT, CT ANGIO HEAD AND NECK, 03/28/2024, 15:29. [facility], CT, CT HEAD/BRAIN WO CON, 03/28/2024, 10:40. FINDINGS: Image quality: Diagnostic. CSF spaces: Basal cisterns are patent. No extra-axial fluid collections. The ventricles are symmetric in size and shape. Brain: A small amount of intracranial hemorrhage is again seen within the right frontal lobe, as demonstrated on series 3, image 22. This is unchanged compared to the examination performed earlier in the day. No new hemorrhage is seen. No intracranial masses. There is cerebral volume loss for age, with resultant ventricular and sulcal prominence. There are periventricular and deep white matter chronic small vessel ischemic changes. There is intracranial internal carotid artery atherosclerosis. Skull and face: Calvarium and visualized facial bones appear intact, without suspicious lesions. Sinuses: Jcgv-qo-nbvfamgm mucosal thickening can be seen within the inferior right maxillary sinus. Visualized sinuses and mastoids are otherwise clear. IMPRESSION: Stable right frontal lobe intraparenchymal hemorrhage. CTA - brain/neck: Radiologist's Impression: PROCEDURE: CT ANGIO HEAD AND NECK INDICATIONS: Intraparenchymal hemorrhage TECHNIQUE: After the administration of intravenous contrast, 1 mm thick sections acquired from the aortic arch through the [place]. 3-dimensional ujbyolb-ptjcjhdki-zhiauuhtho (MIP) and/or volume rendering reformats were acquired of the central intracranial vasculature and neck separately. For radiation dose reduction, the following was used: automated exposure control, adjustment of mA and/or kV according to patient size. COMPARISON: [facility], CT, CT HEAD/BRAIN WO CON, 01/12/2024, 12:02. [facility], CT, CT HEAD/BRAIN WO CON, 11/04/2023, 8:56. [facility], CT, CT HEAD/BRAIN WO CON, 09/24/2023, 7:49. [facility], CT, CT ANGIO HEAD AND NECK, 03/03/2022, 13:08. FINDINGS: Image quality: Diagnostic. BRAIN: CSF spaces: Ventricles are normal in size and shape. Basal cisterns are patent. No extra-axial fluid collections. Brain: No significant abnormality of the brain can be seen. Skull and face: Calvarium and facial bones appear intact, without suspicious lesions. Orbits appear normal. Sinuses: Sinuses and mastoids are clear. HEAD CT ANGIOGRAPHY: Anterior circulation: Intracranial internal carotid arteries are normal in size and flow. The flow within the paired anterior cerebral arteries is normal and symmetric. The flow within the middle cerebral arteries is normal and symmetric. Mild vascular prominence can be seen at the site of the right frontal lobe parenchymal density, which is similar to the prior intracranial CT angiogram. The anterior communicating artery is seen. No aneurysms are seen. Posterior circulation: Visualized portions of the vertebral arteries demonstrate normal caliber, and join to form a normal appearing basilar artery. Flow within the posterior cerebral arteries is normal and symmetric. No aneurysms are seen. NECK CT ANGIOGRAPHY: Carotid system: The great vessels demonstrate a conventional anatomy as they arise from the aortic arch. The origins of the common carotid arteries appear patent. The common carotid arteries demonstrate normal caliber and courses. The bifurcation regions demonstrate focal atherosclerotic calcification and irregularity. There is 60% narrowing seen involving the left proximal internal carotid artery and there is 50-60% narrowing seen involving the right proximal internal carotid artery, with abundant soft plaque. The more distal internal carotid arteries demonstrate normal course and caliber. Posterior circulation: The origins of the vertebral arteries both appear widely patent. The more superior extracranial portions of both vertebral arteries also demonstrate normal courses and calibers. They join to form a normal appearing basilar artery. Soft tissues: Visualized neck soft tissues demonstrate no suspicious abnormalities. Bones: No suspicious bony lesions. Visualized cervical spine appears normally aligned. At least moderate cervical spine degenerative change can be seen. IMPRESSION: No significant intracranial arterial abnormality is seen. Stable vascular prominence can be seen at the site of the right frontal lobe parenchymal calcification. Moderate narrowings can be seen involving both proximal internal carotid arteries, which are similar to 2022. Note: Case discussed by telephone with Dr. Rodriguez at 3:56 p.m. [place] time on March 28, 2024. Any quantitative measurements of stenosis were performed using NASCET criteria. ECG Data Attestation: I personally reviewed and interpreted this ECG as follows: Interpretation: Sinus rhythm Ventricular rate 81 Normal axis normal QRS Normal QTC No ST T wave changes MDM Narrative Medical decision making narrative: Patient reports no specific symptoms. He does state that he fell yesterday but can not expand upon this any further. After re-evaluation he was reporting left shoulder pain. Subsequent x-ray is negative. He reports no discomfort with palpation of his left hand. There was bruising around the area. X-ray shows potential fracture of the phalanx however he was not tender over this area. Initial head CT was concern for intraparenchymal hemorrhage. I did discuss the case with stroke Neurology at [facility]. They recommended repeat head CT and CTA. Upon re-evaluation with repeat CT scans received a call from Radiology stating that the initial scan did not demonstrate an intraparenchymal hemorrhage but more a stable calcification in this area. Patient was able to stand at bedside and ambulate with a walker. He has had issues with balance in the past and continues to have balance issues at home. There was no indication for admission to the hospital. No indication for transfer. Will discharge patient home with walker. Discharge Plan Departure Patient Disposition: Home Clinical Impression: Falls frequently, Contusion of hand Instructions: How to Prevent Falls Activity Restrictions/Additional Instructions: Carlos can continue to take all of his medications as directed. Recommend you contact his primary doctor for a follow-up. Return to the emergency department for new symptoms. Prescriptions: No Action Disabled Parking Permit See Rx Instructions .ROUTE .COMPLEX Qty: 1 0RF Rx Instructions: I find this patient to be medically disabled and qualify for disabled parking as indicated and signed on the accompanying disabled parking application for individuals. atorvastatin 80 mg tablet 80 mg PO DAILY Qty: 90 3RF midodrine 10 mg tablet 10 mg PO 3XD Qty: 270 3RF potassium chloride [Klor-Con M20] 20 mEq tablet,ER particles/crystals 40 meq PO DAILYCC Qty: 180 3RF ondansetron HCl 4 mg tablet 4 mg PO Q8H PRN fludrocortisone 0.1 mg tablet 0.2 mg PO DAILY Qty: 180 3RF levetiracetam 500 mg tablet 500 mg PO BID Qty: 180 3RF omeprazole 20 mg capsule,delayed release(DR/EC) 20 mg PO DAILY Qty: 90 3RF (DME) Transport Chair See Rx Instructions .Route .MEDSUPPLY Qty: 1 0RF Rx Instructions: Transport Chair. Please fit patient with a chair that will fit his halls and doorways at home. sodium chloride 1,000 mg Tablet,Soluble 1,000 mg PO TIDWM Qty: 30 0RF aspirin 81 mg tablet,delayed release (DR/EC) 81 mg PO DAILY Referrals: Margarita Stoll ARNP [Primary Care Provider] - Stand Alone Forms: Patient Portal/API
[2024-03-28 10:55] LABS: Add Manual Diff / Slide Review NO; Basophils Absolute Auto 100 /uL (0-100); Basophils Percent Auto 1.2 % (0-2); Eosinophils Absolute Auto 400 /uL (0-450); Eosinophils Percent Auto 5.6 % (2-4); Hematocrit 42.1 % (41-53); Hemoglobin 14.2 g/dL (13.5-17.5); Lymphocytes Absolute Auto 1700 /uL (1100-4500); Lymphocytes Percent Auto 25.7 % (25-40); Mean Corpuscular HGB Conc 33.7 % (30-36); Mean Corpuscular Hemoglobin 32.3 PG (26-34); Mean Corpuscular Volume 95.9 fL (80-100); Monocytes Absolute Auto 700 /uL (0-900); Monocytes Percent Auto 11.4 % (3-14); Neutrophils Absolute Auto 3600 /uL (1500-7000); Neutrophils Percent Auto 56.1 % (50-75); Platelet Count 210 X10^3/uL (150-400); Red Blood Cell Count 4.39 X10^6/uL (4.5-5.9); Red Cell Distribution Width 15.3 % (11.6-14.8); White Blood Cell Count 6.4 X10^3/uL (4.5-11.0)
[2024-03-28 11:52] LABS: Alanine Aminotransferase 15 IU/L (<50); Albumin Globulin Ratio 1.3 (1.0-2.8); Alkaline Phosphatase 52 U/L (38-126); Aspartate Aminotransferase 50 IU/L (17-59); BUN Creatinine Ratio 24.1 (6-22); Bilirubin Total 1.2 mg/dL (0.2-1.3); Blood Urea Nitrogen 20 mg/dL (9-20); Calcium 9.3 mg/dL (8.4-10.2); Carbon Dioxide 29 mmol/L (22-32); Chloride 105 mmol/L (98-107); Estimated Glomerular Filt Rate > 60 mL/min (>60); Globulin 3.1 g/dL (1.7-4.1); Glucose 96 mg/dL (80-110); HEMOLYSIS 44 (0-50); Lipase 48 U/L (23-300); Potassium 3.5 mmol/L (3.4-5.1); Sodium 138 mmol/L (137-145); Total Protein 7.1 g/dL (6.3-8.2)
--- NOTE | 2024-03-28 11:59 | DI.RAD.S_ITS ---
PROCEDURE: XR HAND LT MIN 3V INDICATIONS: Pain and bruising after fall TECHNIQUE: 3 views of the hand(s) acquired. COMPARISON: [facility], CR, XR HAND LT MIN 3V, 09/23/2023, 16:06. FINDINGS: Bones: Interval amputation of the index finger at the distal interphalangeal joint. Questionable nondisplaced intra-articular fracture at the volar base of the 1st proximal phalanx which is not confirmed on additional views. Carpal bones are normally aligned. No suspicious bony lesions. Soft tissues: Chondrocalcinosis versus posttraumatic changes adjacent to the ulnar styloid. IMPRESSION: 1. Questionable nondisplaced intra-articular fracture at the volar aspect of the 1st proximal phalangeal base versus superimposed osseous structures, not seen in additional views. Recommend correlation for point tenderness. 2. Interval amputation of the 2nd distal phalanx. Approved by: Dinesh Garland M.D. on 03/28/2024 at 13:23
--- NOTE | 2024-03-28 11:59 | DI.RAD.S_ITS ---
PROCEDURE: XR SHOULDER LT MIN 2V INDICATIONS: pain after fall TECHNIQUE: 3 views of the shoulder were acquired. COMPARISON: None. FINDINGS: Bones: No acute fractures or dislocations. No suspicious bony lesions. Visualized ribs appear intact. Dxuf-uo-xwlvuibv acromioclavicular joint osteoarthrosis. Soft tissues: No suspicious soft tissue calcifications. IMPRESSION: No acute osseous abnormality. If symptoms persist or if there is continued clinical concern, cross-sectional imaging such as MRI or CT may be helpful for further evaluation. Approved by: Dinesh Garland M.D. on 03/28/2024 at 13:24
--- NOTE | 2024-03-28 15:21 | DI.CT.S_ITS ---
PROCEDURE: CT HEAD/BRAIN WO CON INDICATIONS: Evaluate progression of intraparenchymal hemorrhage TECHNIQUE: Noncontrast 4.5 mm thick angled axial sections acquired from the foramen magnum to the vertex, with coronal and sagittal reformats. For radiation dose reduction, the following was used: automated exposure control, adjustment of mA and/or kV according to patient size. COMPARISON: [facility], CT, CT HEAD/BRAIN WO CON, 01/12/2024, 12:02. [facility], CT, CT HEAD/BRAIN WO CON, 11/04/2023, 8:56. [facility], CT, CT ANGIO HEAD AND NECK, 03/28/2024, 15:29. [facility], CT, CT HEAD/BRAIN WO CON, 03/28/2024, 10:40. FINDINGS: Image quality: Diagnostic. CSF spaces: Basal cisterns are patent. No extra-axial fluid collections. The ventricles are symmetric in size and shape. Brain: A small amount of intracranial hemorrhage is again seen within the right frontal lobe, as demonstrated on series 3, image 22. This is unchanged compared to the examination performed earlier in the day. No new hemorrhage is seen. No intracranial masses. There is cerebral volume loss for age, with resultant ventricular and sulcal prominence. There are periventricular and deep white matter chronic small vessel ischemic changes. There is intracranial internal carotid artery atherosclerosis. Skull and face: Calvarium and visualized facial bones appear intact, without suspicious lesions. Sinuses: Qudn-ea-barmchhi mucosal thickening can be seen within the inferior right maxillary sinus. Visualized sinuses and mastoids are otherwise clear. IMPRESSION: Stable right frontal lobe intraparenchymal hemorrhage. Dictated by: Juan Marie M.D. on 03/28/2024 at 14:48 Approved by: Juan Marie M.D. on 03/28/2024 at 14:49
--- NOTE | 2024-03-28 15:21 | DI.CT.S_ITS ---
PROCEDURE: CT ANGIO HEAD AND NECK INDICATIONS: Intraparenchymal hemorrhage TECHNIQUE: After the administration of intravenous contrast, 1 mm thick sections acquired from the aortic arch through the [place]. 3-dimensional qlfovcv-yrllvwcjq-prrmctcauo (MIP) and/or volume rendering reformats were acquired of the central intracranial vasculature and neck separately. For radiation dose reduction, the following was used: automated exposure control, adjustment of mA and/or kV according to patient size. COMPARISON: [facility], CT, CT HEAD/BRAIN WO CON, 01/12/2024, 12:02. [facility], CT, CT HEAD/BRAIN WO CON, 11/04/2023, 8:56. [facility], CT, CT HEAD/BRAIN WO CON, 09/24/2023, 7:49. [facility], CT, CT ANGIO HEAD AND NECK, 03/03/2022, 13:08. FINDINGS: Image quality: Diagnostic. BRAIN: CSF spaces: Ventricles are normal in size and shape. Basal cisterns are patent. No extra-axial fluid collections. Brain: No significant abnormality of the brain can be seen. Skull and face: Calvarium and facial bones appear intact, without suspicious lesions. Orbits appear normal. Sinuses: Sinuses and mastoids are clear. HEAD CT ANGIOGRAPHY: Anterior circulation: Intracranial internal carotid arteries are normal in size and flow. The flow within the paired anterior cerebral arteries is normal and symmetric. The flow within the middle cerebral arteries is normal and symmetric. Mild vascular prominence can be seen at the site of the right frontal lobe parenchymal density, which is similar to the prior intracranial CT angiogram. The anterior communicating artery is seen. No aneurysms are seen. Posterior circulation: Visualized portions of the vertebral arteries demonstrate normal caliber, and join to form a normal appearing basilar artery. Flow within the posterior cerebral arteries is normal and symmetric. No aneurysms are seen. NECK CT ANGIOGRAPHY: Carotid system: The great vessels demonstrate a conventional anatomy as they arise from the aortic arch. The origins of the common carotid arteries appear patent. The common carotid arteries demonstrate normal caliber and courses. The bifurcation regions demonstrate focal atherosclerotic calcification and irregularity. There is 60% narrowing seen involving the left proximal internal carotid artery and there is 50-60% narrowing seen involving the right proximal internal carotid artery, with abundant soft plaque. The more distal internal carotid arteries demonstrate normal course and caliber. Posterior circulation: The origins of the vertebral arteries both appear widely patent. The more superior extracranial portions of both vertebral arteries also demonstrate normal courses and calibers. They join to form a normal appearing basilar artery. Soft tissues: Visualized neck soft tissues demonstrate no suspicious abnormalities. Bones: No suspicious bony lesions. Visualized cervical spine appears normally aligned. At least moderate cervical spine degenerative change can be seen. IMPRESSION: No significant intracranial arterial abnormality is seen. Stable vascular prominence can be seen at the site of the right frontal lobe parenchymal calcification. Moderate narrowings can be seen involving both proximal internal carotid arteries, which are similar to 202. Note: Case discussed by telephone with Dr. Rodriguez at 3:56 p.m. [place] time on March 28, 2024. Any quantitative measurements of stenosis were performed using NASCET criteria. Dictated by: Juan Marie M.D. on 03/28/2024 at 14:52 Approved by: Juan Marie M.D. on 03/28/2024 at 14:58
--- NOTE | 2024-03-28 16:39 | PC.NURSE ---
Patient SB assist to ambulate with walker about 25 feet. He denied feeling dizzy or like he may fall. He did states he feels weak. Patient needed verbal reminders not to push the walker so far ahead of himself. He needed 2 staff assist to get back into bed.
--- NOTE | 2024-03-28 17:59 | CM.SWNOTE ---
ED LOG RIDER Note: Patient is a 83yo male, resident of [place] with his . Patient presented tot he ED today following a fall. LOG RIDER consulted by RN with concern of pt's multiple falls at home and possible referral to home health. Reviewed EMR and discussed pt with RN and ED Provider. Per EMR review, pt has a history at [facility] (2-3 months), [facility] (1 month) and [facility] (7 weeks, graduated on 03/15/2024). 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 ED LOG RIDER entered room, introduced self and role. Present in the room is pt's , Margarita. Per patient's , patient has recently graduated from [facility] and is about to begin outpatient PT at this week. Patient's declined any new referrals to home health. Patient's reports pt has a FWW, wheel chair, shower seat and grab bars installed. Patient's is hopeful to discuss with physical therapy a recommendation for a 4-wheel rollator with seat for pt to use. ED LOG RIDER discussed more caregiving support for at home, pt's endorses connection with [facility] and is hopeful outpatient PT will assist pt with regaining more strength. ED LOG RIDER called [facility] [employer] and left a voice message, asking to re-connect with patient and for further support/resources at home. Plan: Patient to discharge home with spouse, follow up with community loan assistant, outpatient PT, and urology on 04/07/24. NAVID Johnson
== END 2024-03-28 18:10 | disposition home or self-care (01) ==
PROVIDERS: Emergency Provider Emergency Medicine; Family Provider Nurse Practitioner; PCP Nurse Practitioner
DX: S60.222A Contusion of left hand, initial encounter (principal); S09.90XA Unspecified injury of head, initial encounter; M25.512 Pain in left shoulder; R29.6 Repeated falls; M79.642 Pain in left hand; W01.0XXA Fall on same level from slipping, tripping and stumbling without subsequent striking against object, initial encounter
CPT/HCPCS: 70450; 70496; 70498; 72125; 73030; 73130; 80053; 83690; 85025; 93005; 99283; 99284; Q9967

== ENCOUNTER → 2024-04-12 14:42 | Outpatient (CLI) | payer MEDICARE, SELFPAY ==
[2023-11-05 17:40] VITALS: BMI 25.7
[2024-04-12 15:40] LABS: BUN Creatinine Ratio 16.7 (6-22); Blood Urea Nitrogen 13 mg/dL (9-20); Calcium 9.2 mg/dL (8.4-10.2); Carbon Dioxide 33 mmol/L (22-32); Chloride 107 mmol/L (98-107); Estimated Glomerular Filt Rate > 60 mL/min (>60); Glucose 94 mg/dL (80-110); HEMOLYSIS < 15 (0-50); Magnesium 1.4 mg/dL (1.6-2.3); Potassium 3.9 mmol/L (3.4-5.1); Sodium 144 mmol/L (137-145)
[2024-04-12 16:14] LABS: Prostate Specific Antigen < 0.064 ng/mL (0.10-4.00)
== END ==
PROVIDERS: Family Provider Nurse Practitioner; PCP Nurse Practitioner; Referring Provider Specialist; Visit Provider Nurse Practitioner
DX: E83.42 Hypomagnesemia (principal); Z85.46 Personal history of malignant neoplasm of prostate; E44.1 Mild protein-calorie malnutrition
CPT/HCPCS: 36415; 80048; 83735; 84153

== ENCOUNTER → 2024-04-26 13:21 | Outpatient (CLI) | payer MEDICARE, SELFPAY ==
[2023-11-05 17:40] VITALS: BMI 25.7
== END ==
PROVIDERS: Family Provider Nurse Practitioner; PCP Nurse Practitioner; Visit Provider Urology
DX: N39.46 Mixed incontinence (principal); R39.9 Unspecified symptoms and signs involving the genitourinary system; Z85.46 Personal history of malignant neoplasm of prostate
CPT/HCPCS: 51798; 81002; 87077; 87086; 87186; 99213

== ENCOUNTER → 2024-12-28 13:25 | Outpatient (CLI) | payer MEDICARE, SELFPAY ==
[2023-11-05 17:40] VITALS: BMI 25.7
[2024-12-28 15:04] LABS: TSH w/ Reflex to FT4 2.49 uIU/mL (0.47-4.68)
[2024-12-28 15:24] LABS: Vitamin D 25 Hydroxy (D3) 17.8 ng/mL (30.0-100.0)
[2024-12-28 15:39] LABS: Vitamin B12 254 pg/mL (239-931)
== END ==
LOC: LAB 13:27
PROVIDERS: Family Provider Nurse Practitioner; PCP Family Medicine; Referring Provider Psychiatry & Neurology Neurology; Visit Provider Psychiatry & Neurology Neurology
DX: R41.3 Other amnesia (principal); E55.9 Vitamin D deficiency, unspecified
CPT/HCPCS: 36415; 82306; 82607; 82746; 84443

== ENCOUNTER → 2025-02-01 13:43 | Outpatient (CLI) | payer MEDICARE, SELFPAY ==
[2023-11-05 17:40] VITALS: BMI 25.7
--- NOTE | 2025-02-01 13:45 | DI.MRI.S_ITS ---
PROCEDURE: MR HEAD/BRAIN WO/W CON INDICATIONS: Memory changes TECHNIQUE: Noncontrast axial T1 spin echo, axial T2 fast spin echo, sagittal and axial FLAIR, coronal T2 fast spin echo, axial gradient echo, axial diffusion and ADC through the brain. After the administration of contrast, axial and coronal and sagittal T1 spin echo with fat saturation through the brain. COMPARISON: [facility], MR, MR HEAD/BRAIN WO CON, 06/16/2023, 10:12. [facility], CT, CT HEAD/BRAIN WO CON, 03/28/2024, 15:29. FINDINGS: Image quality: Excellent. CSF spaces: Basal cisterns are patent. No extra-axial fluid collections. Ventricles are normal in size and shape. Brain: No midline shift. No intracranial bleeds or masses. No abnormal intracranial enhancement. There is cerebral volume loss for age. There is periventricular white matter chronic small vessel ischemic change. The brainstem appears normal. Diffusion-weighted images demonstrate no acute infarct. No chronic ischemic insults. Normal intravascular flow voids are present. Stable chronic focus of susceptibility artifact within the right frontal lobe. New susceptibility artifact along the inferior right occipital lobe and posterior temporal lobe with some associated encephalomalacia, may represent sequela of prior infarct/hemorrhage or trauma.. Skull and face: Calvarial marrow is normal in signal. Bilateral lens replacements. Otherwise, the orbits are unremarkable. Sinuses: Sinuses and mastoids appear clear. IMPRESSION: Age-related global volume loss and chronic microvascular ischemic changes are redemonstrated. No acute intracranial abnormalities or abnormal intracranial enhancement. Stable focus of susceptibility artifact within the right frontal lobe, may represent a dystrophic calcification versus cavernoma. New susceptibility artifact along the inferior right occipital and posterior temporal lobes with some associated encephalomalacia in this area, may represent sequela of prior hemorrhagic infarct or trauma. Dictated by: Miguel Martino M.D. on 02/01/2025 at 15:17 Approved by: Miguel Martino M.D. on 02/01/2025 at 15:24
== END ==
PROVIDERS: Family Provider Nurse Practitioner; PCP Family Medicine; Referring Provider Family Medicine; Visit Provider Family Medicine
DX: R41.0 Disorientation, unspecified (principal); R41.3 Other amnesia; G93.89 Other specified disorders of brain
CPT/HCPCS: 70553; A9579

== ENCOUNTER → 2025-04-20 13:34 | Outpatient (CLI) | payer MEDICARE, SELFPAY ==
[2023-11-05 17:40] VITALS: BMI 25.7
[2025-04-20 14:24] LABS: Add Manual Diff / Slide Review NO; Hematocrit 45.1 % (41-53); Hemoglobin 15.7 g/dL (13.5-17.5); Lymphocytes Absolute Auto 2000 /uL (1100-4500); Mean Corpuscular HGB Conc 34.9 % (30-36); Mean Corpuscular Hemoglobin 32.1 PG (26-34); Mean Corpuscular Volume 92.1 fL (80-100); Platelet Count 147 X10^3/uL (150-400)
[2025-04-20 15:05] LABS: Alanine Aminotransferase 22 IU/L (<50); Albumin 4.1 g/dL (3.5-5.0); Albumin Globulin Ratio 1.9 (1.0-2.8); Alkaline Phosphatase 61 U/L (38-126); Blood Urea Nitrogen 16 mg/dL (9-20); Calcium 9.3 mg/dL (8.4-10.2); Carbon Dioxide 32 mmol/L (22-32); Chloride 106 mmol/L (98-107); Cholesterol 126 mg/dL (140-199); Estimated Glomerular Filt Rate > 60 mL/min (>60); Globulin 2.2 g/dL (1.7-4.1); Glucose 82 mg/dL (70-99); HDL Cholesterol 41 mg/dL (40-60); HEMOLYSIS < 15 (0-50); Potassium 3.6 mmol/L (3.4-5.1); Sodium 146 mmol/L (137-145); Total Protein 6.3 g/dL (6.3-8.2); Triglycerides 114 mg/dL (35-150)
[2025-04-20 15:57] LABS: Vitamin B12 728 pg/mL (239-931)
[2025-04-20 16:10] LABS: Vitamin D 25 Hydroxy (D3) 70.3 ng/mL (30.0-100.0)
== END ==
PROVIDERS: Family Provider Nurse Practitioner; PCP Family Medicine; Referring Provider Family Medicine; Visit Provider Family Medicine
DX: E53.8 Deficiency of other specified B group vitamins (principal); R41.3 Other amnesia; E55.9 Vitamin D deficiency, unspecified; R55 Syncope and collapse; I60.9 Nontraumatic subarachnoid hemorrhage, unspecified; D69.6 Thrombocytopenia, unspecified
CPT/HCPCS: 36415; 80053; 80061; 82306; 82607; 85025

== ENCOUNTER 2025-07-22 07:31 | Observation (INO) | payer MEDICARE, SELFPAY ==
[2023-11-05 17:40] VITALS: BMI 25.7
[2025-07-22] VITALS (19 sets, daily range): BP systolic 149–192; BP diastolic 69–94; PULSE 51–66; RESP 14–31; TEMP 36.1–36.6; O2SAT 91–98; BMI 25.1; BMI 27.9
--- NOTE | 2025-07-22 07:42 | DI.CT.S_ITS ---
PROCEDURE: CT HEAD/BRAIN WO CON
--- NOTE | 2025-07-22 07:42 | ED_ITS ---
HPI - Altered Mental Status
--- NOTE | 2025-07-22 07:42 | DI.RAD.S_ITS ---
PROCEDURE: XR CHEST 1V
--- NOTE | 2025-07-22 07:42 | ED.AMS ---
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 Patient denies headache, dizziness, lightheadedness, blurred vision, chest pain, shortness breath, nausea, vomiting, back pain, bowel or bladder incontinence. Pt is unable to give me a good history as to what happened today. Other than what is stated 14 point review of system is negative. Related Data Home Medications ?Medication ?Instructions ?Recorded ?Confirmed aspirin 81 mg tablet,delayed 81 mg PO DAILY 01/12/24 04/26/25 release Previous Rx's ?Medication ?Instructions ?Recorded Transport Chair #1 ea 08/20/23 Disabled Parking Permit See Rx Instructions .Route 12/31/23 .COMPLEX #1 unit cholecalciferol (vitamin D3) 1,250 1,250 mcg PO QWEEK #30 caps 01/25/25 mcg (50,000 unit) capsule famotidine 20 mg tablet (Pepcid) 20 mg PO DAILY #14 tabs 01/25/25 mecobalamin (vitamin B12) 1,000 1,000 mcg PO DAILY #30 tabs 01/25/25 mcg chewable tablet atorvastatin 80 mg tablet 80 mg PO DAILY #90 tabs 02/25/25 fludrocortisone 0.1 mg tablet 0.2 mg (2 x 0.1 mg) PO DAILY #180 03/17/25 tabs levetiracetam 500 mg tablet 500 mg PO BID #180 tabs 03/17/25 midodrine 10 mg tablet 10 mg PO 3XD #270 tabs 03/17/25 potassium chloride 20 mEq 40 meq (2 x 20 mEq) PO DAILY #180 03/17/25 tablet,extended tabs release(part/cryst) (Klor-Con M) donepezil 10 mg tablet 10 mg PO ONCE PM #90 tabs 07/01/25 Allergies Allergy/AdvReac Type Severity Reaction Status Date / Time No Known Allergies Allergy Verified 07/22/25 07:52 Review of Systems Review of Systems ROS Unobtainable: All systems reviewed & are unremarkable except as noted in HPI and below Patient History Medical History Hypotension Protein calorie malnutrition History of prostate cancer Seizure Thrombocytopenia Macrocytosis Alcoholic pancreatitis GERD (gastroesophageal reflux disease) Combined hyperlipidemia Falls frequently Intraparenchymal hemorrhage of brain Essential tremor Fatty liver Concussion Right fibular fracture Surgical History Hx of prostate biopsy Hx of circumcision Status post radical cystoprostatectomy Status post colonoscopy S/P total hip arthroplasty Family History Father Prostate cancer Kidney problem Cancer Mother Old age Social History marital status: number of children: 5 household members: spouse Tobacco: How many years used: 50 second hand exposure: No alcohol intake: current substance use type: does not use caffeine: No Type(s) of exercise: occasional exercise frequency: 1-2 times per week duration: 60-90 minutes/day alcohol intake frequency: 0-2 drinks per day Exam Narrative Exam Narrative: GENERAL: [84] year old patient appears stated age. Well-developed patient, in mild distress. HEAD: Atraumatic. Normocephalic. EYES: Pupils equal round and reactive. Extraocular motions intact. No scleral icterus. No injection or drainage. ENT: Nose without bleeding, purulent drainage. Throat without erythema, tonsillar hypertrophy or exudate. Airway patent. NECK: Trachea midline. Non tender CARDIOVASCULAR: Regular rate and rhythm without murmurs, gallops, or rubs. RESPIRATORY: Clear to auscultation. Breath sounds equal bilaterally. No wheezes, rales, or rhonchi. GASTROINTESTINAL: Abdomen soft, non-tender, nondistended. EXTREMITIES: No edema or joint tenderness. BACK: Nontender without deformity or crepitance. No flank tenderness. NEURO: AOx3. SKIN: No rash or erythema of visible areas Initial Vital Signs Initial Vital Signs: Vital Signs Temperature 97.8 F 07/22/25 07:52 Pulse Rate 53 L 07/22/25 07:52 Respiratory Rate 18 07/22/25 07:52 Blood Pressure 149/69 H 07/22/25 07:52 Pulse Oximetry 91 07/22/25 07:52 Oxygen Delivery Method Room Air 07/22/25 07:52 Scores NIH Stroke Scale Level of Conciousness: Alert, keenly responsive Ask month/age: Answers both questions correctly. Open/close eyes, close hand: Performs both tasks correctly Best gaze horizontal: Normal Visual hastings: No visual loss Facial palsy: Normal symetrical movement Left arm drift: No drift for full 10 sec Right arm drift: No drift for full 10 sec Left leg drift: No drift for full 5 sec Right leg drift: No drift for full 5 sec Limb ataxia: Absent Sensory on face/arms/legs: Normal, no sensory loss Best language: No aphasia, normal Dysarthria: Normal Extinction or inattention: No abnormality Total NIH Stroke scale score: 0 Course Orders Ordered: ED Orders 07/22/25 07:30 Complete Blood Count AUTO DIFF Stat Comprehensive Metabolic Panel Stat Lipase Stat Magnesium Stat NT-proBNP (BNP-Adult 18+) Stat Troponin I Stat 07/22/25 07:42 CT head/brain wo con Stat XR chest 1V Stat Lactate (Lactic Acid) Stat EKG-12 Lead Stat 07/22/25 08:00 Covid-19 + FLU A/B + RSV - PCR Stat 07/22/25 08:08 Blood Culture Stat 07/22/25 09:20 Urine Microscopic Stat Discontinued Medications Lactated Ringer's (Lactated Ringers) 1,000 mls @ 1,000 mls/hr IV BOLUS ONE Stop: 07/22/25 08:41 Last Infusion: 07/22/25 09:52 Dose: Infused Documented By: Admin: 07/22/25 08:40 Dose: 1,000 mls/hr Documented By: MS Vital Signs Vital signs: Vital Signs - 8 hr 07/22/25 07:52 07/22/25 08:01 07/22/25 08:01 Temperature 97.8 F Pulse Rate 53 L 56 L Respiratory Rate 18 28 H Blood Pressure 149/69 H 192/79 H Pulse Oximetry 91 95 Oxygen Delivery Method Room Air 07/22/25 08:02 07/22/25 08:02 07/22/25 08:30 Temperature Pulse Rate 56 L Respiratory Rate 20 Blood Pressure 168/75 H 164/72 H Pulse Oximetry 95 Oxygen Delivery Method 07/22/25 08:30 07/22/25 09:00 07/22/25 09:02 Temperature Pulse Rate 51 L 56 L Respiratory Rate 18 17 Blood Pressure 179/84 H Pulse Oximetry 95 96 Oxygen Delivery Method 07/22/25 09:02 Temperature Pulse Rate 55 L Respiratory Rate 20 Blood Pressure Pulse Oximetry 97 Oxygen Delivery Method MDM - Altered Mental Status Lab Data 07/22/25 07:30 07/22/25 07:30 Labs: Lab Results 07/22/25 07/22/25 07/22/25 Range/Units 07: 08:00 09:20 WBC 9.7 (4.5-11.0) X10^3/uL RBC 4.86 (4.5-5.9) X10^6/uL Hgb 15.4 (13.5-17.5) g/dL Hct 45.1 (41-53) % MCV 92.7 (80-100) fL MCH 31.7 (26-34) PG MCHC 34.2 (30-36) % RDW 14.0 (11.6-14.8) % Plt Count 168 (150-400) X10^3/uL Neut % (Auto) 35.8 L (50-75) % Lymph % (Auto) 53.0 H (25-40) % [place] % (Auto) 7.7 (3-14) % Eos % (Auto) 3.1 (2-4) % Baso % (Auto) 0.4 (0-2) % Neut # (Auto) 3500 (7636-1757) /uL Lymph # (Auto) 5200 H (7170-7224) /uL [place] # (Auto) 800 (0-900) /uL Eos # (Auto) 300 (0-450) /uL Baso # (Auto) 0 (0-100) /uL Sodium 141 (137-145) mmol/L Potassium 3.5 (3.4-5.1) mmol/L Chloride 109 H (98-107) mmol/L Carbon Dioxide 22 (22-32) mmol/L BUN 14 (9-20) mg/dL Creatinine 0.89 (0.66-1.25) mg/dL Estimated GFR > 60 (>60) mL/min BUN/Creatinine Ratio 15.7 (6-22) Glucose 115 H (70-99) mg/dL Calcium 9.1 (8.4-10.2) mg/dL Magnesium 1.4 L (1.6-2.3) mg/dL Total Bilirubin 1.0 (0.2-1.3) mg/dL AST 28 (17-59) IU/L ALT 22 (<50) IU/L Alkaline Phosphatase 67 (38-126) U/L Troponin I < 0.012 (0.01-0.034) ng/mL NT-Pro-B Natriuret Pep 749 H (<450) pg/mL Total Protein 6.9 (6.3-8.2) g/dL Albumin 4.2 (3.5-5.0) g/dL Globulin 2.7 (1.7-4.1) g/dL Albumin/Globulin Ratio 1.6 (1.0-2.8) Lipase 117 (23-300) U/L Urine RBC 0-1/hpf (0-5/HPF) Urine WBC 1-5/hpf (0-5/HPF) Ur Squamous Epith Cells 0-1 /hpf (0-5/HPF) Urine Bacteria Occasional (0-1) (None) Ur Culture Indicated? Cult not indicated Vol Urine Centrifuged 10ml (spun) SARS-CoV-2 (PCR) Negative (Negative) Influenza A (RT-PCR) Flu a negative (NEGATIVE) Influenza B (RT-PCR) Flu b negative (NEGATIVE) RSV (PCR) Negative (Negative) Urine Dip Bedside Urine Glucose Negative Bedside Urine Bilirubin - Negative Bedside Urine Ketone - Negative Urine Specific [place] 1.015 Bedside Urine Occult Blood +/- Bedside Urine pH 6.0 Bedside Urine Protein - Negative Bedside Urine Urobilinogen - Negative Bedside Urine Nitrite - Negative Bedside Urine Leukocytes - Negative Esterase Imaging Data Chest x-ray: Radiologist's Impression: [address] [address] XRay Report Signed Patient: Carlos Jansen MR#: [id number] : 1940 Acct:[id number] Age/Sex: 84 / M Date of Service: 07/22/25 Loc: ED Accession Number: [id number] Procedure: XR chest 1V Ordering Provider: Ebenezer Bynum D.O. PROCEDURE: XR CHEST 1V INDICATIONS: syncope TECHNIQUE: One view of the chest was acquired. COMPARISON: [facility], CR, XR CHEST 1V, 01/12/2024, 11:52. FINDINGS: Surgical changes and devices: None. Lungs and pleura: Lungs are clear. No pleural effusions or pneumothorax. Mediastinum: Mediastinal contours appear normal. Heart size is normal. Bones and chest wall: No suspicious bony lesions. Overlying soft tissues appear unremarkable. IMPRESSION: No acute cardiopulmonary pathology. CT scan - head: Radiologist's Impression: Patient: Carlos Jansen MR#: [id number] : 1940 Acct:[id number] Age/Sex: 84 / M Date of Service: 07/22/25 Loc: ED Accession Number: [id number] Procedure: CT head/brain wo con Ordering Provider: Ebenezer Bynum D.O. PROCEDURE: CT HEAD/BRAIN WO CON INDICATIONS: syncope TECHNIQUE: Noncontrast 4.5 mm thick angled axial sections acquired from the foramen magnum to the vertex, with coronal and sagittal reformats. For radiation dose reduction, the following was used: automated exposure control, adjustment of mA and/or kV according to patient size. COMPARISON: [facility], MR, MR HEAD/BRAIN WO/W CON, 02/01/2025, 14:01. [facility], CT, CT HEAD/BRAIN WO CON, 03/28/2024, 15:29. FINDINGS: Image quality: Diagnostic. CSF spaces: Basal cisterns are patent. No extra-axial fluid collections. The ventricles are symmetric in size and shape. Brain: No intracranial bleeds or mass effect. Stable 5 mm hyperdensity again noted in right frontal lobe unchanged from prior studies and show susceptibility artifacts on previous MRI suggestive of benign calcification versus cavernoma. There is cerebral volume loss, with resultant ventricular and sulcal prominence. There are periventricular and deep white matter chronic small vessel ischemic changes. There is intracranial internal carotid artery atherosclerosis. Skull and face: Calvarium and visualized facial bones appear intact, without suspicious lesions. Sinuses: Visualized sinuses and mastoids are clear. IMPRESSION: No acute intracranial pathology. No significant changes from prior studies. Dictated by: Arthur Manriquez M.D. on 07/22/2025 at 8:03 Approved by: Arthur Manriquez M.D. on 07/22/2025 at 8:05 ECG Data Interpretation: Sinus Ivan with PAC HR 58 MN 192 QRS [address]-t wave change Change from 03/28/24 MDM Narrative Medical decision making narrative: All lab work, vital signs, nurse triage note, medication list, previous ER visits, and all imaging studies reviewed. WBC 9.7 hemoglobin 15.4 platelet 168 sodium 141 potassium 3.4 chloride 109 BUN 14 creatinine 0.89 glucose 115 magnesium 1.4 troponin 1st set less than 0.012 x2 BNP 749 urine normal chest x-ray showed no acute process. CT head showed no acute process. Patient given lactated ringer 1 L bolus stool studies are pending. Case discussed with Dr. Johnson hospitalist who has graciously accepted the patient for inpatient admission. Differential diagnosis orthostatic hypotension CVA hemorrhage STEMI NSTEMI dehydration Discharge Plan Departure Patient Disposition: Admitted as Observation Clinical Impression: Diarrhea, Hypomagnesemia, Near syncope Admit Date/Time: 07/22/25 12:01 Admit Provider: Fredy Johnson V
--- NOTE | 2025-07-22 07:44 | EKG_ITS ---
[facility]
[2025-07-22 07:49] LABS: Add Manual Diff / Slide Review NO; Hematocrit 45.1 % (41-53); Hemoglobin 15.4 g/dL (13.5-17.5); Lymphocytes Absolute Auto 5200 /uL (1100-4500); Mean Corpuscular HGB Conc 34.2 % (30-36); Mean Corpuscular Hemoglobin 31.7 PG (26-34); Mean Corpuscular Volume 92.7 fL (80-100); Platelet Count 168 X10^3/uL (150-400)
[2025-07-22 08:01] LABS: Alanine Aminotransferase 22 IU/L (<50); Albumin 4.2 g/dL (3.5-5.0); Albumin Globulin Ratio 1.6 (1.0-2.8); Alkaline Phosphatase 67 U/L (38-126); Blood Urea Nitrogen 14 mg/dL (9-20); Calcium 9.1 mg/dL (8.4-10.2); Carbon Dioxide 22 mmol/L (22-32); Chloride 109 mmol/L (98-107); Estimated Glomerular Filt Rate > 60 mL/min (>60); Globulin 2.7 g/dL (1.7-4.1); Glucose 115 mg/dL (70-99); HEMOLYSIS < 15 (0-50); Lipase 117 U/L (23-300); Magnesium 1.4 mg/dL (1.6-2.3); Potassium 3.5 mmol/L (3.4-5.1); Sodium 141 mmol/L (137-145); Total Protein 6.9 g/dL (6.3-8.2)
[2025-07-22 08:13] LABS: NT-proBNP (BNP-Adult 18+) 749 pg/mL (<450); Troponin I < 0.012 ng/mL (0.01-0.034)
[2025-07-22] MEDS: LACTATED RINGERS 1,000 ML 1000 ML IV (08:40)
[2025-07-22 08:47] LABS: Influenza A - CEPHEID Flu A NEGATIVE (NEGATIVE); Influenza B - CEPHEID Flu B NEGATIVE (NEGATIVE)
[2025-07-22 08:56] LABS: COVID-19 CEPHEID 4-PLEX PCR Negative (Negative)
[2025-07-22 10:05] LABS: Culture Indicated Urine Cult Not Indicated
[2025-07-22] MEDS: MAGNESIUM SULFATE 2 GM/50 ML PIGGYBACK IV (11:41)
[2025-07-22 11:52] LABS: Troponin I < 0.012 ng/mL (0.01-0.034)
--- NOTE | 2025-07-22 14:42 | P.HP_ITS ---
History of Present Illness
--- NOTE | 2025-07-22 14:42 | PM.HP.IH.1 ---
History of Present Illness History of Present Illness Date Patient Seen: 07/22/25 Time Patient Seen: 12:40 Chief complaint: Weakness Narrative: 84-year-old man under the primary care of Dr. Lillie Campos with history of dementia, orthostatic hypotension and alcohol abuse history, treated with empiric levetiracetam 500 mg twice daily, was found passed out in the shower by his with paramedics finding blood pressure in the 90s over 40s. He was administered IV fluids and brought to the emergency department for evaluation. He is unable to provide a history, with his stating the emergency department that he has dementia and short-term memory deficits, though also states that he denies having dementia. She also notes that he has been having diarrhea for a couple of days and has no recent risk factors on review, specifically no recent travel, antibiotic exposure, sick contacts or prior history of intermittent diarrhea. [facility] Medical History Alcoholic pancreatitis Combined hyperlipidemia Concussion Essential tremor Falls frequently Fatty liver GERD (gastroesophageal reflux disease) History of prostate cancer Hypotension Intraparenchymal hemorrhage of brain Macrocytosis Protein calorie malnutrition Right fibular fracture Seizure Thrombocytopenia Surgical History Hx of circumcision Hx of prostate biopsy S/P total hip arthroplasty Status post colonoscopy Status post radical cystoprostatectomy Family History Father Prostate cancer Kidney problem Cancer Mother Old age Social History marital status: number of children: 5 household members: spouse Smoking Status: Former smoker Tobacco: How many years used: 50 second hand exposure: No alcohol intake: current substance use type: does not use caffeine: No Type(s) of exercise: occasional exercise frequency: 1-2 times per week duration: 60-90 minutes/day Meds Home Medications and Allergies Home Medications ?Medication ?Instructions ?Recorded ?Confirmed ?Type Transport Chair #1 ea 08/20/23 07/22/25 Rx Disabled Parking Permit See Rx Instructions .Route 12/31/23 07/22/25 Rx .COMPLEX #1 unit aspirin 81 mg tablet,delayed 81 mg PO DAILY 04/29/24 11/07/25 History release cholecalciferol (vitamin D3) 1,250 1,250 mcg PO QWEEK #30 caps 01/25/25 07/22/25 Rx mcg (50,000 unit) capsule mecobalamin (vitamin B12) 1,000 1,000 mcg PO DAILY #30 tabs 01/25/25 07/22/25 Rx mcg chewable tablet atorvastatin 80 mg tablet 80 mg PO DAILY #90 tabs 02/25/25 07/22/25 Rx fludrocortisone 0.1 mg tablet 0.2 mg (2 x 0.1 mg) PO DAILY #180 03/17/25 07/22/25 Rx tabs levetiracetam 500 mg tablet 500 mg PO BID #180 tabs 03/17/25 07/22/25 Rx midodrine 10 mg tablet 10 mg PO 3XD #270 tabs 03/17/25 07/22/25 Rx potassium chloride 20 mEq 40 meq (2 x 20 mEq) PO DAILY #180 03/17/25 07/22/25 Rx tablet,extended tabs release(part/cryst) (Klor-Con M) donepezil 10 mg tablet 10 mg PO ONCE PM #90 tabs 07/01/25 07/22/25 Rx Allergies Allergy/AdvReac Type Severity Reaction Status Date / Time No Known Allergies Allergy Verified 07/22/25 07:52 Exam Vital Signs (past 8 hours): - 07/22/25 07:52 07/22/25 08:01 07/22/25 08:01 Temperature 97.8 F Pulse Rate 53 L 56 L Respiratory Rate 18 28 H Blood Pressure 149/69 H 192/79 H Pulse Oximetry 91 95 Oxygen Delivery Method Room Air 07/22/25 08:02 07/22/25 08:02 07/22/25 08:30 Temperature Pulse Rate 56 L Respiratory Rate 20 Blood Pressure 168/75 H 164/72 H Pulse Oximetry 95 Oxygen Delivery Method 07/22/25 08:30 07/22/25 09:00 07/22/25 09:02 Temperature Pulse Rate 51 L 56 L Respiratory Rate 18 17 Blood Pressure 179/84 H Pulse Oximetry 95 96 Oxygen Delivery Method 07/22/25 09:02 07/22/25 09:30 07/22/25 10:00 Temperature Pulse Rate 55 L 61 63 Respiratory Rate 20 14 28 H Blood Pressure Pulse Oximetry 97 96 97 Oxygen Delivery Method 07/22/25 10:30 07/22/25 11:00 07/22/25 11:27 Temperature Pulse Rate 66 55 L 64 Respiratory Rate 31 H 23 20 Blood Pressure Pulse Oximetry 96 96 96 Oxygen Delivery Method 07/22/25 11:27 07/22/25 11:30 07/22/25 11:30 Temperature Pulse Rate 62 Respiratory Rate 20 Blood Pressure 173/81 H 177/84 H Pulse Oximetry 97 Oxygen Delivery Method 07/22/25 12:00 07/22/25 12:01 07/22/25 12:01 Temperature Pulse Rate 62 56 L Respiratory Rate 29 H 22 Blood Pressure 190/79 H Pulse Oximetry 98 98 Oxygen Delivery Method 07/22/25 12:30 07/22/25 12:31 07/22/25 12:31 Temperature Pulse Rate 56 L 54 L Respiratory Rate 22 23 Blood Pressure 176/78 H Pulse Oximetry 97 96 Oxygen Delivery Method 07/22/25 13:00 07/22/25 13:00 Temperature Pulse Rate 53 L Respiratory Rate Blood Pressure 177/94 H Pulse Oximetry 97 Oxygen Delivery Method Oxygen Delivery Method Room Air Narrative Exam Narrative: GENERAL: This is a well-nourished, well-developed patient, in no apparent distress. HEAD: Atraumatic. Normocephalic. No temporal or scalp tenderness. EYES: Pupils equal round and reactive. Extraocular motions intact. No scleral icterus. No injection or drainage. ENT: Mucous membranes pink and moist. NECK: Trachea midline. No JVD, bruits or lymphadenopathy. Supple, nontender, no meningeal signs. CARDIOVASCULAR: Regular rate and rhythm without murmurs, gallops, or rubs. RESPIRATORY: Clear to auscultation. GASTROINTESTINAL: Abdomen soft, non-tender, nondistended. EXTREMITIES: No clubbing, cyanosis, or edema. BACK: Nontender without deformity or crepitance. No flank tenderness. NEUROLOGIC: Alert, oriented, speech fluent, full upper and lower motor strength, no focal deficits evident. DERMATOLOGIC: No rashes or skin lesions. Objective ECG Impression: 07/22/2025: Sinus bradycardia at 58 beats per minute with premature atrial complexes, no ischemic changes Imaging *: Radiologist's impression: 1. Chest x-ray 07/22/2025: No acute cardiopulmonary pathology. 2. Head CT 07/22/2025: CSF spaces: Basal cisterns are patent. No extra-axial fluid collections. The ventricles are symmetric in size and shape. Brain: No intracranial bleeds or mass effect. Stable 5 mm hyperdensity again noted in right frontal lobe unchanged from prior studies and show susceptibility artifacts on previous MRI suggestive of benign calcification versus cavernoma. There is cerebral volume loss, with resultant ventricular and sulcal prominence. There are periventricular and deep white matter chronic small vessel ischemic changes. There is intracranial internal carotid artery atherosclerosis. Skull and face: Calvarium and visualized facial bones appear intact, without suspicious lesions. Sinuses: Visualized sinuses and mastoids are clear. IMPRESSION: No acute intracranial pathology. No significant changes from prior studies. 3. Brain MRI 02/01/2025: Age-related global volume loss and chronic microvascular ischemic changes are redemonstrated. No acute intracranial abnormalities or abnormal intracranial enhancement. Stable focus of susceptibility artifact within the right frontal lobe, may represent a dystrophic calcification versus cavernoma. New susceptibility artifact along the inferior right occipital and posterior temporal lobes with some associated encephalomalacia in this area, may represent sequela of prior hemorrhagic infarct or trauma. Labs 07/22/25 07:30 07/22/25 07:30 Labs: Laboratory Results - last 24 hr 07/22/25 07/22/25 07/22/25 07:30 08:00 09:20 WBC 9.7 RBC 4.86 Hgb 15.4 Hct 45.1 MCV 92.7 MCH 31.7 MCHC 34.2 RDW 14.0 Plt Count 168 Neut % (Auto) 35.8 L Lymph % (Auto) 53.0 H Johnson % (Auto) 7.7 Eos % (Auto) 3.1 Baso % (Auto) 0.4 Neut # (Auto) 3500 Lymph # (Auto) 5200 H Johnson # (Auto) 800 Eos # (Auto) 300 Baso # (Auto) 0 Sodium 141 Potassium 3.5 Chloride 109 H Carbon Dioxide 22 BUN 14 Creatinine 0.89 Estimated GFR > 60 BUN/Creatinine Ratio 15.7 Glucose 115 H Calcium 9.1 Magnesium 1.4 L Total Bilirubin 1.0 AST 28 ALT 22 Alkaline Phosphatase 67 Troponin I < 0.012 NT-Pro-B Natriuret Pep 749 H Total Protein 6.9 Albumin 4.2 Globulin 2.7 Albumin/Globulin Ratio 1.6 Lipase 117 Urine RBC 0-1/hpf Urine WBC 1-5/hpf Ur Squamous Epith Cells 0-1 /hpf Urine Bacteria Occasional (0-1) Ur Culture Indicated? Cult not indicated Vol Urine Centrifuged 10ml (spun) SARS-CoV-2 (PCR) Negative Influenza A (RT-PCR) Flu a negative Influenza B (RT-PCR) Flu b negative RSV (PCR) Negative 07/22/25 11:15 WBC RBC Hgb Hct MCV MCH MCHC RDW Plt Count Neut % (Auto) Lymph % (Auto) Johnson % (Auto) Eos % (Auto) Baso % (Auto) Neut # (Auto) Lymph # (Auto) Johnson # (Auto) Eos # (Auto) Baso # (Auto) Sodium Potassium Chloride Carbon Dioxide BUN Creatinine Estimated GFR BUN/Creatinine Ratio Glucose Calcium Magnesium Total Bilirubin AST ALT Alkaline Phosphatase Troponin I < 0.012 NT-Pro-B Natriuret Pep Total Protein Albumin Globulin Albumin/Globulin Ratio Lipase Urine RBC Urine WBC Ur Squamous Epith Cells Urine Bacteria Ur Culture Indicated? Vol Urine Centrifuged SARS-CoV-2 (PCR) Influenza A (RT-PCR) Influenza B (RT-PCR) RSV (PCR) Assessment & Plan Assessment & Plan narrative: 1. Syncope, likely multifactorial due to volume depletion from diarrhea in the setting of the patient with known seizure disorder, orthostatic hypotension, and underlying dementia. 2. Seizure disorder. 3. Orthostatic hypotension. 4. Cerebrovascular disease. 5. Hyperlipidemia. 6. Dementia. 7. History of atrial fibrillation, in sinus rhythm Plan: -admit to observation -hydrated intravenously -monitor on telemetry, rule out paroxysmal atrial fibrillation -monitor electrolytes and renal function -continue routine home medications DVT prophylaxis: Sequential compression devices Code status: Do not resuscitate. The patient and his clearly state that he does not wish cardiopulmonary resuscitation in the event of cardiopulmonary arrest, and states that he has a POLST form at home and in his medical record stating his wish. His is his surrogate decision maker. Quality VTE Deep Vein Thrombosis/Pulmonary Embolism Present on Admission: No MIPS - Admit I confirm the patient?s Advance Care Plan is present, Code status is documented, Surrogate decision maker is in patient?s record [If Yes, STOP here]: Yes MIPS - Meds 'Current medications' to include all prescriptions, [id number] products, herbals, cannabis/cannabidiol products, and vitamin/mineral/dietary (nutritional) supplements. I have utilized all available resources to obtain, update, or review the patient?s current medications. [If Yes, STOP here]: Yes IH PROFEE Debt Collection Specialist Document charge(s): No Charge Codes Initial inpatient/observation care: 65190
[2025-07-22] MEDS: DEXTROSE 5%-0.45% NS 1,000 ML 100 ML IV (17:14)
[2025-07-22] MEDS: DONEPEZIL 5 MG TABLET 10 MG PO (20:56)
[2025-07-23] VITALS: BP 145/79; PULSE 62; RESP 16; TEMP 36.3; O2SAT 97
[2025-07-23] MEDS: DEXTROSE 5%-0.45% NS 1,000 ML 100 ML IV (02:59)
[2025-07-23 04:00] VITALS: BP 169/77; PULSE 53; RESP 16; TEMP 35.9; O2SAT 95
[2025-07-23 06:30] LABS: Add Manual Diff / Slide Review NO; Hematocrit 40.7 % (41-53); Hemoglobin 14.1 g/dL (13.5-17.5); Lymphocytes Absolute Auto 1900 /uL (1100-4500); Mean Corpuscular HGB Conc 34.6 % (30-36); Mean Corpuscular Hemoglobin 31.8 PG (26-34); Mean Corpuscular Volume 91.9 fL (80-100); Platelet Count 134 X10^3/uL (150-400)
[2025-07-23 06:45] LABS: Blood Urea Nitrogen 11 mg/dL (9-20); Calcium 8.7 mg/dL (8.4-10.2); Carbon Dioxide 30 mmol/L (22-32); Chloride 105 mmol/L (98-107); Estimated Glomerular Filt Rate > 60 mL/min (>60); Glucose 109 mg/dL (70-99); HEMOLYSIS < 15 (0-50); Potassium 3.1 mmol/L (3.4-5.1); Sodium 139 mmol/L (137-145)
[2025-07-23 08:13] VITALS: BP 169/74; PULSE 57; RESP 16; TEMP 35.8; O2SAT 96
[2025-07-23] MEDS: CYANOCOBALAMIN (VITAMIN B-12) 500 MCG TABLET 1000 MCG PO (08:41)
[2025-07-23] MEDS: ASPIRIN EC 81 MG TABLET PO (08:43)
[2025-07-23] MEDS: ATORVASTATIN 20 MG TABLET 80 MG PO (08:43)
[2025-07-23] MEDS: POTASSIUM CHLORIDE 20 MEQ TAB 40 MEQ PO (08:44)
[2025-07-23] MEDS: FLUDROCORTISONE 0.1 MG TABLET 0.2 MG PO (08:44)
--- NOTE | 2025-07-23 10:32 | PC.NURSE ---
pt resting in bed, NAD, A/O, appropriate, ate breakfast, took morning meds without issues, call light with in reach, pt sitting up watching the news, will continue to monitor.
[2025-07-23 12:00] VITALS: BP 167/72; PULSE 56; RESP 16; TEMP 36.1; O2SAT 96
--- NOTE | 2025-07-23 13:06 | P.DS_ITS ---
History of Present Illness
--- NOTE | 2025-07-23 13:06 | PM.DS.IH.1 ---
History of Present Illness History of Present Illness Date Patient Seen: 07/23/25 Time Patient Seen: 08:23 Chief complaint: Weakness Narrative: 84-year-old man under the primary care of Dr. Lillie Campos with history of dementia, orthostatic hypotension and alcohol abuse history, treated with empiric levetiracetam 500 mg twice daily, was found passed out in the shower by his with paramedics finding blood pressure in the 90s over 40s. He was administered IV fluids and brought to the emergency department for evaluation. He is unable to provide a history, with his stating the emergency department that he has dementia and short-term memory deficits, though also states that he denies having dementia. She also notes that he has been having diarrhea for a couple of days and has no recent risk factors on review, specifically no recent travel, antibiotic exposure, sick contacts or prior history of intermittent diarrhea. Discharge Providers Provider Date of admission: 07/22/25 12:01 Discharge Date: 07/23/25 Primary care physician: Lillie Goldsmith MD Discharge provider: Fredy Johnson MD Summary Hospital Course Discharge Diagnosis: 1. Syncope, likely multifactorial due to volume depletion from diarrhea in the setting of the patient with known seizure disorder, orthostatic hypotension, and underlying dementia. 2. Seizure disorder. 3. Orthostatic hypotension. 4. Cerebrovascular disease. 5. Hyperlipidemia. 6. Dementia. 7. History of atrial fibrillation, in sinus rhythm Hospital Course: The patient was admitted and hydrated intravenously overnight. He is felt significantly better. Diarrhea resolved spontaneously. He was able to get up and walk without limitation and interested in discharge home. No other issues arose. Status at Discharge Cognitive/behavioral status at discharge: oriented Functional status at discharge: independent ambulation Overall status at discharge: patient is back to baseline Time Spent with Patient Time spent: Less than 30 minutes Exam Vital Signs (past 8 hours): - 07/23/25 08:13 07/23/25 12:00 Temperature 96.5 F L 97.0 F L Pulse Rate 57 L 56 L Respiratory Rate 16 16 Blood Pressure 169/74 H 167/72 H Pulse Oximetry 96 96 Oxygen Delivery Method Room Air Oxygen Flow Rate 0 Narrative Exam Narrative: GENERAL: This is a well-nourished, well-developed patient, in no apparent distress. EYES: Pupils equal round and reactive. Extraocular motions intact. No scleral icterus. No injection or drainage. ENT: Mucous membranes pink and moist. NECK: Trachea midline. No JVD, bruits or lymphadenopathy. Supple, nontender, no meningeal signs. CARDIOVASCULAR: Regular rate and rhythm without murmurs, gallops, or rubs. RESPIRATORY: Clear to auscultation. GASTROINTESTINAL: Abdomen soft, non-tender, nondistended. EXTREMITIES: No clubbing, cyanosis, or edema. NEUROLOGIC: Alert, oriented, speech fluent, full upper and lower motor strength, no focal deficits evident. DERMATOLOGIC: No rashes or skin lesions. Objective ECG Impression: 07/22/2025: Sinus bradycardia at 58 beats per minute with premature atrial complexes, no ischemic changes Imaging *: Radiologist's impression: 1. Chest x-ray 07/22/2025: No acute cardiopulmonary pathology. 2. Head CT 07/22/2025: CSF spaces: Basal cisterns are patent. No extra-axial fluid collections. The ventricles are symmetric in size and shape. Brain: No intracranial bleeds or mass effect. Stable 5 mm hyperdensity again noted in right frontal lobe unchanged from prior studies and show susceptibility artifacts on previous MRI suggestive of benign calcification versus cavernoma. There is cerebral volume loss, with resultant ventricular and sulcal prominence. There are periventricular and deep white matter chronic small vessel ischemic changes. There is intracranial internal carotid artery atherosclerosis. Skull and face: Calvarium and visualized facial bones appear intact, without suspicious lesions. Sinuses: Visualized sinuses and mastoids are clear. IMPRESSION: No acute intracranial pathology. No significant changes from prior studies. 3. Brain MRI 02/01/2025: Age-related global volume loss and chronic microvascular ischemic changes are redemonstrated. No acute intracranial abnormalities or abnormal intracranial enhancement. Stable focus of susceptibility artifact within the right frontal lobe, may represent a dystrophic calcification versus cavernoma. New susceptibility artifact along the inferior right occipital and posterior temporal lobes with some associated encephalomalacia in this area, may represent sequela of prior hemorrhagic infarct or trauma. Labs 07/23/25 05:50 07/23/25 05:50 Labs: Laboratory Results - last 24 hr 07/23/25 05:50 WBC 4.8 D RBC 4.43 L Hgb 14.1 Hct 40.7 L MCV 91.9 MCH 31.8 MCHC 34.6 RDW 13.6 Plt Count 134 L Neut % (Auto) 42.4 L Lymph % (Auto) 40.9 H [place] % (Auto) 11.1 Eos % (Auto) 4.8 H Baso % (Auto) 0.8 Neut # (Auto) 2000 Lymph # (Auto) 1900 [place] # (Auto) 500 Eos # (Auto) 200 Baso # (Auto) 0 Sodium 139 Potassium 3.1 L Chloride 105 Carbon Dioxide 30 BUN 11 Creatinine 0.75 Estimated GFR > 60 BUN/Creatinine Ratio 14.7 Glucose 109 H Calcium 8.7 PFSH Medical History Alcoholic pancreatitis Combined hyperlipidemia Concussion Essential tremor Falls frequently Fatty liver GERD (gastroesophageal reflux disease) History of prostate cancer Hypotension Intraparenchymal hemorrhage of brain Macrocytosis Protein calorie malnutrition Right fibular fracture Seizure Thrombocytopenia Surgical History Hx of circumcision Hx of prostate biopsy S/P total hip arthroplasty Status post colonoscopy Status post radical cystoprostatectomy Family History Father Prostate cancer Kidney problem Cancer Mother Old age Social History marital status: number of children: 5 household members: spouse Smoking Status: Former smoker Tobacco: How many years used: 50 second hand exposure: No alcohol intake: current substance use type: does not use caffeine: No Type(s) of exercise: occasional exercise frequency: 1-2 times per week duration: 60-90 minutes/day Discharge Plan Discharge Plan Patient Disposition: Home Provider Discharge Comment: Followup with PCP 1 week Discharge orders & Medications Prescriptions: Continued mecobalamin (vitamin B12) 1,000 mcg tablet,chewable 1,000 mcg PO DAILY Qty: 30 1RF cholecalciferol (vitamin D3) 1,250 mcg (50,000 unit) capsule 1,250 mcg PO QWEEK Qty: 30 2RF Disabled Parking Permit See Rx Instructions .ROUTE .COMPLEX Qty: 1 0RF Rx Instructions: I find this patient to be medically disabled and qualify for disabled parking as indicated and signed on the accompanying disabled parking application for individuals. atorvastatin 80 mg tablet 80 mg PO DAILY Qty: 90 3RF potassium chloride [Klor-Con M20] 20 mEq tablet,ER particles/crystals 40 meq PO DAILY Qty: 180 3RF midodrine 10 mg tablet 10 mg PO 3XD Qty: 270 3RF fludrocortisone 0.1 mg tablet 0.2 mg PO DAILY Qty: 180 3RF levetiracetam 500 mg tablet 500 mg PO BID Qty: 180 3RF donepezil 10 mg tablet 10 mg PO ONCE PM Qty: 90 0RF (DME) Transport Chair See Rx Instructions .Route .MEDSUPPLY Qty: 1 0RF Rx Instructions: Transport Chair. Please fit patient with a chair that will fit his halls and doorways at home. aspirin 81 mg tablet,delayed release (DR/EC) 81 mg PO DAILY Medication counseling provided by Pharmacist: No Follow up/Referrals: Lillie Goldsmith MD [Primary Care Provider, [facility]] Diet/Activity/Treatments Diet: Diet as Tolerated Activity: activity as tolerated Skin/Wound/Dressing Care Report to your healthcare provider any signs of infection, such as:: chills, fever, night sweats, increased pain, unusual drainage and unusual redness Visit Report/Discharge Packet Instructions: DI for Syncope in Adults (Fainting), DI for Diarrhea and Traveler's Diarrhea -- Adult Stand Alone Forms: Patient Portal/API, Stroke Signs & Symptoms Discharge Data Primary Care Provider: Lillie Goldsmith Attending Provider: Fredy Johnson V Admit Date/Time: 07/22/25 12:01 Quality VTE Deep Vein Thrombosis/Pulmonary Embolism Present on Admission: No MIPS - Admit I confirm the patient?s Advance Care Plan is present, Code status is documented, Surrogate decision maker is in patient?s record [If Yes, STOP here]: Yes MIPS - Meds 'Current medications' to include all prescriptions, [id number] products, herbals, cannabis/cannabidiol products, and vitamin/mineral/dietary (nutritional) supplements. I have utilized all available resources to obtain, update, or review the patient?s current medications. [If Yes, STOP here]: Yes MIPS - DC The patient has a history of heart transplant or Left Ventricular Assist Device (LVAD). If yes, STOP here.: No The patient has current or prior documentation of left ventricular ejection fraction (LVEF) less than or equal to 40%, or moderate or severely depressed left ventricular systolic function.: No A. The patient was prescribed or already taking an Angiotensin-Converting Enzyme (ASHLEY) Inhibitor, or Angiotensin Receptor Tao (ARB).: No B. The patient was prescribed or already taking a beta-tao. [If Yes to Both A & B, STOP here]: No Patient not prescribed/taking ASHLEY or ARB, no reason given.: No Patient not prescribed/taking beta-tao, no reason given.: No PROFEE Charge Codes Discharge inpatient/observation: [id number]
--- NOTE | 2025-07-23 13:58 | CM.DANOTE ---
Initial DCP Assessment Note. Review EMR and PT Interview. Per chart review, from home, uses [facility]. Payor:[facility] PCP: Summary & Plan:?84 y/o male arrrived to ED via EMS c/o weakness and confusion. Admitted OBS, Dx.Diarrhea. Plan: IVF and recheck labs in am. Discharge Planning/Care Management CM Discharge Assessment Start: 07/22/25 12:13 Freq: Status: Discharge Protocol: Document 07/23/25 13:56 (Rec: 07/23/25 13:58 [id number]) Discharge Planning Assessment Assigned Discharge Lara Vang RN CM Supervisor [employer] Provider Dr. Goldsmith Insurance [facility] Advance Directives? Yes: POLST Advance Directives No on File History Provided By Patient,Family Member,Medical Record Prior Living House Arrangements Household Members spouse Independent with ADL Yes 's Is patient alert and Yes oriented? Caregiver for No Another Comment Increased care needs over the last week per spouse Barriers to No Discharge Discharge Plan Longterm Facility Referrals Initiated None needed Review Status In Process Please Provide Date 07/23/25 Initial DC Assessment Was Performed Next Review Type Continued Stay Review
== END 2025-07-23 13:30 | disposition home or self-care (01) ==
LOC: ED 08:37 → AC 12:02
PROVIDERS: Admitting Provider Internal Medicine; Emergency Provider Family Medicine; Family Provider Nurse Practitioner; PCP Family Medicine; Referring Provider Family Medicine; Visit Provider Internal Medicine
DX: R53.1 Weakness (principal); I95.1 Orthostatic hypotension; E86.9 Volume depletion, unspecified; R19.7 Diarrhea, unspecified; R29.700 NIHSS score 0; F03.90 Unspecified dementia, unspecified severity, without behavioral disturbance, psychotic disturbance, mood disturbance, and anxiety; D69.6 Thrombocytopenia, unspecified; G40.909 Epilepsy, unspecified, not intractable, without status epilepticus; K21.9 Gastro-esophageal reflux disease without esophagitis; E78.5 Hyperlipidemia, unspecified; Z86.73 Personal history of transient ischemic attack (TIA), and cerebral infarction without residual deficits; Z79.01 Long term (current) use of anticoagulants; Z79.82 Long term (current) use of aspirin; F10.11 Alcohol abuse, in remission; Z66 Do not resuscitate
CPT/HCPCS: 36415; 70450; 71045; 80048; 80053; 81003; 81015; 83690; 83735; 83880; 84484; 85025; 87040; 87637; 93005; 96361; 96365; 96366; 99284; G0378; J3475; J7120